=== PATIENT | female | born 1960 | race Caucasian/White ===

== ENCOUNTER 2022-11-28 14:33 | Outpatient (CLI) | payer MEDICARE, SELFPAY ==
--- NOTE | ~2022-11-28 | CT_ITS ---
CT Scan of the Chest without Contrast: Clinical Indication: Lung cancer screening, personal history of nicotine dependence Technique: Contiguous sections were acquired throughout the chest without intravenous contrast. Dose reduction technique was used on this scan by utilizing automated exposure control and iterative recon struction technique. The dose-length product (DLP) was 451.59 mGy-cm. Findings: There is no evidence of any significant mediastinal, hilar or axillary lymphadenopathy. There are ath erosclerotic calcifications of the aorta. There is no evidence of pleural or pericardial effusion. No pulmonary nodule identified. Possible minimal areas of ground glass opacity in the upper lobes. Images through the upper abdomen reveal no abnormalities. Impression: Lung RADS 1: Negative. 12 month follow-up screening CT advised. Possible minimal areas of groundglass opacity in the upper lobes. Correlate for mild bronchitis. Reviewed, dictated and finalized at [facility]. Impression: Lung RADS 1: Negative. 12 month follow-up screening CT advised. Possible minimal areas of groundglass opacity in the upper lobes. Correlate for mild bronchitis.
== END 2022-11-28 14:34 | disposition home or self-care (01) ==
PROVIDERS: PCP Internal Medicine Infectious Disease; Visit Provider Nurse Practitioner Family
DX: Z12.2 Encounter for screening for malignant neoplasm of respiratory organs (principal); F17.210 Nicotine dependence, cigarettes, uncomplicated
CPT/HCPCS: 71271

== ENCOUNTER 2022-11-28 14:55 | Outpatient (CLI) | payer MEDICARE, SELFPAY ==
--- NOTE | ~2022-11-28 | MM_ITS ---
EXAMINATION: MM screening hellen BI w christine HISTORY: Screening mammogram TECHNIQUE: Craniocaudal and mediolateral oblique 3-D tomosynthesis images were obtained and synthetic 2-D images were generated. CAD analysis was submitted and interpreted. COMPARISON: No prior mammogram is available for comparison at this institution. BREAST PARENCHYMAL COMPOSITION: The breasts are almost entirely fatty. FINDINGS: There is no evidence of suspicious mass, calcification, or architectural distortion to sugg est malignancy in either breast. IMPRESSION: 1. No mammographic evidence of malignancy. 2. Recommend routine screening mammography in one year. BI-RADS Category 1: Negative Reviewed, dictated and finalized at location [facility].
== END 2022-11-28 14:56 | disposition home or self-care (01) ==
PROVIDERS: PCP Internal Medicine Infectious Disease; Visit Provider Nurse Practitioner Women's Health
DX: Z12.31 Encounter for screening mammogram for malignant neoplasm of breast (principal)
CPT/HCPCS: 77063; 77067

== ENCOUNTER 2023-06-25 10:47 | Outpatient (RCR) | payer MEDICARE, SELFPAY ==
--- NOTE | 2023-06-25 11:50 | OPREHPOC ---
Outpatient Therapy Plan of Care This is a Multidisciplinary Plan of Care that may contain components documented by all disciplines (PT, OT, and ST.) PT Problem 1 PT Problem #1 Knowledge Deficit PT Goal 1 Goal patient to demonstrate independence with HEP Target Visit 4 PT Problem 2 PT Problem #2 Pain PT Goal 1 Goal Patient to report highest pain at 4/10 to return to ADLs at PLOF Target Visit 8 PT Problem 3 PT Problem #3 Impaired Strength PT Goal 1 Goal Patient to demonstrate 4+/5 strength of B LE to return to ambulate for grocery shopping without limitation Target Visit 8 PT Problem 4 PT Problem #4 Impaired Functional Mobil PT Goal 1 Goal 1. Patient to improve Back Index by 20% 2. Patient to report ability to grocery shop with no increase in back pain 3. Patient to return to house hold tasks at PLOF Target Visit 8
--- NOTE | 2023-06-25 11:50 | PTOPEVAL1 ---
Assessment and note entered by Gypsy Anne DPT Evaluation Information Assessment Status Evaluation Diagnosis low back pain, B LE pain Onset 04/20/23 Subjective Information Patient reports she underwent lumbar fusion on 04/20. She reports she is still having lower back and B LE pain but pain is improved. She reports she had her wound open and had to use a wound vac for a few weeks. She reports this is her second lumbar fusion. She reports no restrictions. She would like to attended PT for 1 week to learn HEP for strengthening. Patient reports difficulty with prolonged ambulation, standing for prolonged periods, and completing house hold tasks. She reports she returns to [place] at the end of June. Reported Pain Level Pain Score 3: Self Report Assessment PT Clinical Summary Ms. Lee is a 63 year old female who presents to PT with low back and LE pain. She demonstrates decreased B LE strength, decreased endurance and increased back pain limiting her ability to grocery shop, stand for house hold tasks and ambulate prolonged periods of time. She would benefit from skilled PT to address impairments and return to PLOF. Plan of Care Interventions Gait Training,Hot Pack/Cold Pack,Manual Therapy, Neuro Re-education,Paraffin Bath,Therapeutic Activities,Therapeutic Exercise PT Services Indicated Yes Treatment Frequency and 2x weekly for 10 visits Duration These treatments will address the objective and functional deficits as defined above. The patient will be advanced safely and appropriately in order for the patient to progress towards his/her prior level of function. Additional exercises will be introduced and as well as a comprehensive home exercise program upon discharge, if needed, ?to ensure carryover of functional gains achieved in the clinic. This treatment plan has been reviewed and agreement upon by the patient.
--- NOTE | 2023-06-27 07:09 | PCPTNOTE ---
Patient cancelled her session this morning. Patient notes independence with HEP. Holding on PT at this time.
== END 2023-09-23 23:59 | disposition home or self-care (01) ==
LOC: CHSPT 10:47
DX: Z47.89 Encounter for other orthopedic aftercare (principal); Z98.1 Arthrodesis status
CPT/HCPCS: 97110; 97161

== ENCOUNTER 2024-01-19 16:12 | Emergency (ER) | payer MEDICARE, SELFPAY ==
--- NOTE | ~2024-01-19 | XR_ITS ---
XR chest 2V DATE: 01/19/2024 16:56 INDICATION: Cough, shortness of breath TECHNIQUE: AP and lateral views COMPARISON: 11/28/2022 CT lung screening FINDINGS: Status post anterior and posterior cervical spine surgical fusion. Heart size is within normal range. No hilar or mediastinal enlargement. No pulmonary infiltrate or consolidation, pleural effusion or pulmonary vascular congestion or pneumo thorax is detected. IMPRESSION: No active cardiopulmonary disease Reviewed, dictated and finalized at location A.
[2024-01-19 16:15] VITALS: BP 127/69; PULSE 83; RESP 18; TEMP 37; O2SAT 94
--- NOTE | 2024-01-19 16:22 | ECG_ITS ---
Test Date: 2024-01-19 16:30:43 Measurements Intervals [place] Rate: 81 P: 65 KS: 155 QRS: 70 QRSD: 98 T: 67 QT: 361 QTc: 420 Interpretive Statements SINUS RHYTHM BASELINE ARTIFACT- I, II, III, AVR, AVL, AVF, V1-V2 NORMAL ECG No previous ECG available for comparison Electronically Signed On 01-19-2024 17:12:02 CDT by Francisco Javier Peralta D.O.
--- NOTE | 2024-01-19 16:37 | ED.SOB ---
HPI - SOB/Dyspnea General Chief Complaint: Shortness of Breath/Dyspnea Stated Complaint: SOB, cough Time Seen by Provider: 01/19/24 16:37 History of Present Illness HPI Narrative: 63-year-old female with history of type 2 diabetes, hypertension, hypothyroidism, COPD presents to the emergency department via EMS from home for shortness of breath. Patient reports a productive cough and shortness of breath for 2 weeks. She saw her marine pipefitter helper, FERNANDO Ramirez, and was started on doxycycline and prednisone For a COPD exacerbation a few days ago. States she felt some what improved, however symptoms have worsened again. patient states she smokes half pack to 1 pack per day for approximately 45 years. She has been using her nebulizers and albuterol inhaler as directed without improvement. States today while she was making soup for dinner she began to feel short of breath and lightheaded. She sat down and took her pulse ox which was 83%. She contacted EMS and was transported to the ED. She reports a productive cough with increased sputum production. Denies chest pain or fever, lower extremity edema, hemoptysis or history of VTE. She normally does not wear oxygen during the day but does wear 1 L at night with her BPAP. Related Data Home Medications Medication Instructions Recorded Confirmed atorvastatin 40 mg tablet 40 mg PO QHS 06/27/22 09/25/23 bupropion HCl 150 mg 24 hr tablet, 150 mg PO QAM 06/27/22 09/25/23 extended release desvenlafaxine succinate 100 mg 100 mg PO DAILY 06/27/22 09/25/23 tablet,extended release 24 hr (Pristiq) ergocalciferol (vitamin D2) 1,250 1,250 mcg PO WEEKLY 06/27/22 09/25/23 mcg (50,000 unit) capsule famciclovir 250 mg tablet 250 mg PO Q12H 06/27/22 09/25/23 gabapentin 300 mg capsule 300 mg PO BID 06/27/22 09/25/23 hydrocodone 5 mg-acetaminophen 325 1 tablet PO Q8H PRN 06/27/22 09/25/23 mg tablet levothyroxine 137 mcg capsule 137 mcg PO DAILY 06/27/22 09/25/23 nortriptyline 10 mg capsule 10 mg PO QHS 06/27/22 09/25/23 pregabalin 100 mg capsule 100 mg PO DAILY 11/15/22 09/25/23 liothyronine 5 mcg tablet 10 mcg PO BID 09/25/23 09/25/23 lorazepam 0.5 mg tablet 0.5 mg PO DAILY PRN 09/25/23 09/25/23 losartan 25 mg tablet 25 mg PO DAILY 09/25/23 09/25/23 metformin 500 mg tablet 500 mg PO BID 09/25/23 09/25/23 propranolol 20 mg tablet 20 mg PO BID 09/25/23 09/25/23 quetiapine 100 mg tablet 200 mg PO QHS 09/25/23 09/25/23 Allergies Allergy/AdvReac Type Severity Reaction Status Date / Time lithium AdvReac Severe shakes Uncoded 01/19/24 16:24 Review of Systems Review of Systems: All systems reviewed & are unremarkable except as noted in HPI and below PMFSH Past Medical History Medical History Anxiety Psychiatrist - Dr Zachary Hurley delivery delivered 1985 Chronic back pain and cervical stenosis. Sees pain management - Dr Barker Hypertension Hypothyroidism Network Developer - Dr Randolph Type 2 diabetes mellitus Surgical History Surgical History H/O: hysterectomy History of appendectomy 1985 History of cholecystectomy 1985 History of fusion of cervical spine 2010 Status post anal fissurectomy 1996 Social History Social History Smoking packs per day: 1 Smoking cigarettes per day: 20.0 Smoking status: Current every day smoker Alcohol intake: never Exam Narrative: GENERAL: Well-appearing, well-nourished, and in no acute distress. HEAD: Normocephalic, atraumatic. EYES: PERRLA and EOMI. ENT: Nares clear, no rhinorrhea or epistaxis. Mucous membranes moist. NECK: Supple. CHEST: no respiratory distress. Patient speaking in full sentences satting 94% on room air. Lung sounds significant for rhonchi and wheezing throughout all lung escalera. HEART: Regular rate and rhythm. No murmur heard. Normal peripheral pulses. ABDOMEN: Soft, nontender, nondistended, normal active bowel sounds. EXTREMITIES: Normal range of motion. No edema. Negative Homans bilaterally SKIN: Warm, dry, no rash. NEURO: No focal deficits. Alert and oriented x3 Course Vital Signs Vital signs: Vital Signs Temperature 98.6 F 01/19/24 16:15 Pulse Rate 83 01/19/24 16:15 Respiratory Rate 18 01/19/24 16:15 Blood Pressure 127/69 01/19/24 16:15 Pulse Oximetry 94 01/19/24 16:15 Oxygen Delivery Room Air 01/19/24 16:15 Temperature 98.6 F 01/19/24 16:15 Pulse Rate 81 01/19/24 18:00 Respiratory Rate 20 01/19/24 18:00 Blood Pressure 127/69 01/19/24 16:15 Pulse Oximetry 94 01/19/24 16:15 Oxygen Delivery Room Air 01/19/24 16:15 MDM - SOB/Dyspnea MDM Narrative Medical decision making narrative: 63-year-old female with history of COPD , WILFRED, hypothyroidism, hypertension, type 2 diabetes presents to the emergency department for shortness of breath and productive cough for 2 weeks, despite taking prednisone and doxycycline. Patient states she noted she was hypoxic 83% on room air therefore contacted EMS was transported to the ED. upon my evaluation, the patient is satting 94% on room air and speaking in full sentences. She is in no respiratory distress. Lung sounds significant for rhonchi and wheezing throughout all lung escalera. Her vitals are otherwise normal and she is afebrile. EKG shows sinus rhythm with a rate of 81, normal DC interval, normal QRS duration, normal QTC, no ischemic changes. Troponin is undetectable. D-dimer within normal limits, wells score is low risk. CBC shows leukocytosis of 16.8. This may be secondary to infection versus steroid use. Chemistries are remarkable for mild hyperkalemia 5.2, creatinine of 1.3 BUN of 27. There are no prior labs for comparison. BNP within normal limits. COVID, flu RSV are negative. Chest x-ray shows no acute cardiopulmonary disease. ABG shows pH is 7.344, pCO2 42.5, PO2 117.1 and bicarb of 22.6. Workup discussed with the patient. Presentation is most consistent with COPD exacerbation. She was given an hour long DuoNeb with improvement. Solu-Medrol held given current use of steroids (on prednisone taper, currently taking 40mg qd). She is requesting to be discharged home. Will discontinue doxycycline and trial Augmentin for COPD exacerbation. Advised her to Continue prednisone and to use her DuoNebs and inhaler as scheduled and follow-up closely with her marine pipefitter helper and PCP. Strict ED return precautions discussed. She is agreeable to plan verbalized understanding. Discharged in stable condition. Lab Data 01/19/24 17:36 01/19/24 17:36 Labs: Lab Results 01/19/24 01/19/24 01/19/24 Range/Units 17:35 17:35 17:35 WBC (4.5-10.0) K/mm3 RBC (4.2-5.4) M/mm3 Hgb (12.0-15.0) g/dL Hct (37.0-47.0) % MCV (80-100) fl MCH (26-34) pg MCHC (32-36) g/dl RDW (11.5-14.5) % Plt Count (150-375) k/mm3 MPV (7.4-10.4) fl Immature Gran % (Auto) (0-0.5) % Neut % (Auto) (45.5-73.1) % Lymph % (Auto) (18.3-44.2) % [place] % (Auto) (2.6-8.5) % Eos % (Auto) (0-4.4) % Baso % (Auto) (0.2-1.2) % Lymph # (Auto) (0.9-3.2) K/mm3 [place] # (Auto) (0.1-0.6) K/mm3 Eos # (Auto) (0-0.3) K/mm3 Baso # (Auto) (0.0-0.1) K/mm3 Abs Immat Gran (auto) (0.00-0.031) K/mm3 Absolute Neuts (auto) (1.3-6.7) K/mm3 Absolute Nucleated RBC (0.0-0.012) K/mm3 Nucleated RBC % (0.0-0.2) % PT (11.1-14.7) Seconds INR APTT (22.3-36.8) Seconds D-Dimer (<0.48) ug/mL Sodium Potassium Chloride Carbon Dioxide Anion Gap BUN Creatinine Estim Creat Clear Calc Estimated GFR Glucose Calcium Magnesium (1.6-2.3) mg/dL Total Bilirubin AST ALT Alkaline Phosphatase Troponin I (0.000-0.034) ng/mL NT-Pro-B Natriuret Pep (19.9-100) pg/mL Total Protein Albumin Influenza A (RT-PCR) Pending Negative Influenza B (RT-PCR) Pending Negative RSV (RT-PCR) Pending SARS-CoV-2 RNA (RT-PCR) Pending 01/19/24 01/19/24 01/19/24 Range/Units 17:35 17:36 17:36 WBC 16.8 H (4.5-10.0) K/mm3 RBC 4.64 (4.2-5.4) M/mm3 Hgb 14.0 (12.0-15.0) g/dL Hct 42.4 (37.0-47.0) % MCV 91.4 (80-100) fl MCH 30.2 (26-34) pg MCHC 33.0 (32-36) g/dl RDW 14.5 (11.5-14.5) % Plt Count 375 (150-375) k/mm3 MPV 10.4 (7.4-10.4) fl Immature Gran % (Auto) 0.5 (0-0.5) % Neut % (Auto) 90.3 H (45.5-73.1) % Lymph % (Auto) 7.7 L (18.3-44.2) % [place] % (Auto) 1.2 L (2.6-8.5) % Eos % (Auto) 0.1 (0-4.4) % Baso % (Auto) 0.2 (0.2-1.2) % Lymph # (Auto) 1.29 (0.9-3.2) K/mm3 [place] # (Auto) 0.2 (0.1-0.6) K/mm3 Eos # (Auto) 0.0 (0-0.3) K/mm3 Baso # (Auto) 0.0 (0.0-0.1) K/mm3 Abs Immat Gran (auto) 0.08 H (0.00-0.031) K/mm3 Absolute Neuts (auto) 15.1 H (1.3-6.7) K/mm3 Absolute Nucleated RBC 0.000 (0.0-0.012) K/mm3 Nucleated RBC % 0.0 (0.0-0.2) % PT 13.8 (11.1-14.7) Seconds INR 1.0 APTT 27.3 (22.3-36.8) Seconds D-Dimer 0.42 (<0.48) ug/mL Sodium Cancelled 132 L Potassium Cancelled Chloride Carbon Dioxide Anion Gap BUN Creatinine Estim Creat Clear Calc Estimated GFR Glucose Calcium Magnesium (1.6-2.3) mg/dL Total Bilirubin AST ALT Alkaline Phosphatase Troponin I (0.000-0.034) ng/mL NT-Pro-B Natriuret Pep (19.9-100) pg/mL Total Protein Albumin Influenza A (RT-PCR) Influenza B (RT-PCR) RSV (RT-PCR) SARS-CoV-2 RNA (RT-PCR) Negative 01/19/24 01/19/24 01/19/24 Range/Units 17:36 17:36 17:36 WBC (4.5-10.0) K/mm3 RBC (4.2-5.4) M/mm3 Hgb (12.0-15.0) g/dL Hct (37.0-47.0) % MCV (80-100) fl MCH (26-34) pg MCHC (32-36) g/dl RDW (11.5-14.5) % Plt Count (150-375) k/mm3 MPV (7.4-10.4) fl Immature Gran % (Auto) (0-0.5) % Neut % (Auto) (45.5-73.1) % Lymph % (Auto) (18.3-44.2) % [place] % (Auto) (2.6-8.5) % Eos % (Auto) (0-4.4) % Baso % (Auto) (0.2-1.2) % Lymph # (Auto) (0.9-3.2) K/mm3 [place] # (Auto) (0.1-0.6) K/mm3 Eos # (Auto) (0-0.3) K/mm3 Baso # (Auto) (0.0-0.1) K/mm3 Abs Immat Gran (auto) (0.00-0.031) K/mm3 Absolute Neuts (auto) (1.3-6.7) K/mm3 Absolute Nucleated RBC (0.0-0.012) K/mm3 Nucleated RBC % (0.0-0.2) % PT (11.1-14.7) Seconds INR APTT (22.3-36.8) Seconds D-Dimer (<0.48) ug/mL Sodium Potassium 5.2 H Chloride Cancelled 96 L Carbon Dioxide Cancelled 24 Anion Gap Cancelled BUN Creatinine Estim Creat Clear Calc Estimated GFR Glucose Calcium Magnesium (1.6-2.3) mg/dL Total Bilirubin AST ALT Alkaline Phosphatase Troponin I (0.000-0.034) ng/mL NT-Pro-B Natriuret Pep (19.9-100) pg/mL Total Protein Albumin Influenza A (RT-PCR) Influenza B (RT-PCR) RSV (RT-PCR) SARS-CoV-2 RNA (RT-PCR) 01/19/24 01/19/24 01/19/24 Range/Units 17:36 17:36 17:36 WBC (4.5-10.0) K/mm3 RBC (4.2-5.4) M/mm3 Hgb (12.0-15.0) g/dL Hct (37.0-47.0) % MCV (80-100) fl MCH (26-34) pg MCHC (32-36) g/dl RDW (11.5-14.5) % Plt Count (150-375) k/mm3 MPV (7.4-10.4) fl Immature Gran % (Auto) (0-0.5) % Neut % (Auto) (45.5-73.1) % Lymph % (Auto) (18.3-44.2) % [place] % (Auto) (2.6-8.5) % Eos % (Auto) (0-4.4) % Baso % (Auto) (0.2-1.2) % Lymph # (Auto) (0.9-3.2) K/mm3 [place] # (Auto) (0.1-0.6) K/mm3 Eos # (Auto) (0-0.3) K/mm3 Baso # (Auto) (0.0-0.1) K/mm3 Abs Immat Gran (auto) (0.00-0.031) K/mm3 Absolute Neuts (auto) (1.3-6.7) K/mm3 Absolute Nucleated RBC (0.0-0.012) K/mm3 Nucleated RBC % (0.0-0.2) % PT (11.1-14.7) Seconds INR APTT (22.3-36.8) Seconds D-Dimer (<0.48) ug/mL Sodium Potassium Chloride Carbon Dioxide Anion Gap 12 BUN Cancelled 27 H Creatinine Cancelled 1.30 H Estim Creat Clear Calc Cancelled Estimated GFR Glucose Calcium Magnesium (1.6-2.3) mg/dL Total Bilirubin AST ALT Alkaline Phosphatase Troponin I (0.000-0.034) ng/mL NT-Pro-B Natriuret Pep (19.9-100) pg/mL Total Protein Albumin Influenza A (RT-PCR) Influenza B (RT-PCR) RSV (RT-PCR) SARS-CoV-2 RNA (RT-PCR) 01/19/24 01/19/24 01/19/24 Range/Units 17:36 17:36 17:36 WBC (4.5-10.0) K/mm3 RBC (4.2-5.4) M/mm3 Hgb (12.0-15.0) g/dL Hct (37.0-47.0) % MCV (80-100) fl MCH (26-34) pg MCHC (32-36) g/dl RDW (11.5-14.5) % Plt Count (150-375) k/mm3 MPV (7.4-10.4) fl Immature Gran % (Auto) (0-0.5) % Neut % (Auto) (45.5-73.1) % Lymph % (Auto) (18.3-44.2) % [place] % (Auto) (2.6-8.5) % Eos % (Auto) (0-4.4) % Baso % (Auto) (0.2-1.2) % Lymph # (Auto) (0.9-3.2) K/mm3 [place] # (Auto) (0.1-0.6) K/mm3 Eos # (Auto) (0-0.3) K/mm3 Baso # (Auto) (0.0-0.1) K/mm3 Abs Immat Gran (auto) (0.00-0.031) K/mm3 Absolute Neuts (auto) (1.3-6.7) K/mm3 Absolute Nucleated RBC (0.0-0.012) K/mm3 Nucleated RBC % (0.0-0.2) % PT (11.1-14.7) Seconds INR APTT (22.3-36.8) Seconds D-Dimer (<0.48) ug/mL Sodium Potassium Chloride Carbon Dioxide Anion Gap BUN Creatinine Estim Creat Clear Calc 59 Estimated GFR Cancelled 41 L Glucose Cancelled 155 H Calcium Cancelled Magnesium (1.6-2.3) mg/dL Total Bilirubin AST ALT Alkaline Phosphatase Troponin I (0.000-0.034) ng/mL NT-Pro-B Natriuret Pep (19.9-100) pg/mL Total Protein Albumin Influenza A (RT-PCR) Influenza B (RT-PCR) RSV (RT-PCR) SARS-CoV-2 RNA (RT-PCR) 01/19/24 01/19/24 01/19/24 Range/Units 17:36 17:36 17:36 WBC (4.5-10.0) K/mm3 RBC (4.2-5.4) M/mm3 Hgb (12.0-15.0) g/dL Hct (37.0-47.0) % MCV (80-100) fl MCH (26-34) pg MCHC (32-36) g/dl RDW (11.5-14.5) % Plt Count (150-375) k/mm3 MPV (7.4-10.4) fl Immature Gran % (Auto) (0-0.5) % Neut % (Auto) (45.5-73.1) % Lymph % (Auto) (18.3-44.2) % [place] % (Auto) (2.6-8.5) % Eos % (Auto) (0-4.4) % Baso % (Auto) (0.2-1.2) % Lymph # (Auto) (0.9-3.2) K/mm3 [place] # (Auto) (0.1-0.6) K/mm3 Eos # (Auto) (0-0.3) K/mm3 Baso # (Auto) (0.0-0.1) K/mm3 Abs Immat Gran (auto) (0.00-0.031) K/mm3 Absolute Neuts (auto) (1.3-6.7) K/mm3 Absolute Nucleated RBC (0.0-0.012) K/mm3 Nucleated RBC % (0.0-0.2) % PT (11.1-14.7) Seconds INR APTT (22.3-36.8) Seconds D-Dimer (<0.48) ug/mL Sodium Potassium Chloride Carbon Dioxide Anion Gap BUN Creatinine Estim Creat Clear Calc Estimated GFR Glucose Calcium 9.0 Magnesium 2.0 (1.6-2.3) mg/dL Total Bilirubin Cancelled 0.5 AST Cancelled 45 H ALT Cancelled Alkaline Phosphatase Troponin I (0.000-0.034) ng/mL NT-Pro-B Natriuret Pep (19.9-100) pg/mL Total Protein Albumin Influenza A (RT-PCR) Influenza B (RT-PCR) RSV (RT-PCR) SARS-CoV-2 RNA (RT-PCR) 01/19/24 01/19/24 01/19/24 Range/Units 17:36 17:36 17:36 WBC (4.5-10.0) K/mm3 RBC (4.2-5.4) M/mm3 Hgb (12.0-15.0) g/dL Hct (37.0-47.0) % MCV (80-100) fl MCH (26-34) pg MCHC (32-36) g/dl RDW (11.5-14.5) % Plt Count (150-375) k/mm3 MPV (7.4-10.4) fl Immature Gran % (Auto) (0-0.5) % Neut % (Auto) (45.5-73.1) % Lymph % (Auto) (18.3-44.2) % [place] % (Auto) (2.6-8.5) % Eos % (Auto) (0-4.4) % Baso % (Auto) (0.2-1.2) % Lymph # (Auto) (0.9-3.2) K/mm3 [place] # (Auto) (0.1-0.6) K/mm3 Eos # (Auto) (0-0.3) K/mm3 Baso # (Auto) (0.0-0.1) K/mm3 Abs Immat Gran (auto) (0.00-0.031) K/mm3 Absolute Neuts (auto) (1.3-6.7) K/mm3 Absolute Nucleated RBC (0.0-0.012) K/mm3 Nucleated RBC % (0.0-0.2) % PT (11.1-14.7) Seconds INR APTT (22.3-36.8) Seconds D-Dimer (<0.48) ug/mL Sodium Potassium Chloride Carbon Dioxide Anion Gap BUN Creatinine Estim Creat Clear Calc Estimated GFR Glucose Calcium Magnesium (1.6-2.3) mg/dL Total Bilirubin AST ALT 65 H Alkaline Phosphatase Cancelled 104 Troponin I < 0.012 (0.000-0.034) ng/mL NT-Pro-B Natriuret Pep 41 (19.9-100) pg/mL Total Protein Cancelled 8.0 Albumin Cancelled Influenza A (RT-PCR) Influenza B (RT-PCR) RSV (RT-PCR) SARS-CoV-2 RNA (RT-PCR) 01/19/24 Range/Units 17:36 WBC (4.5-10.0) K/mm3 RBC (4.2-5.4) M/mm3 Hgb (12.0-15.0) g/dL Hct (37.0-47.0) % MCV (80-100) fl MCH (26-34) pg MCHC (32-36) g/dl RDW (11.5-14.5) % Plt Count (150-375) k/mm3 MPV (7.4-10.4) fl Immature Gran % (Auto) (0-0.5) % Neut % (Auto) (45.5-73.1) % Lymph % (Auto) (18.3-44.2) % [place] % (Auto) (2.6-8.5) % Eos % (Auto) (0-4.4) % Baso % (Auto) (0.2-1.2) % Lymph # (Auto) (0.9-3.2) K/mm3 [place] # (Auto) (0.1-0.6) K/mm3 Eos # (Auto) (0-0.3) K/mm3 Baso # (Auto) (0.0-0.1) K/mm3 Abs Immat Gran (auto) (0.00-0.031) K/mm3 Absolute Neuts (auto) (1.3-6.7) K/mm3 Absolute Nucleated RBC (0.0-0.012) K/mm3 Nucleated RBC % (0.0-0.2) % PT (11.1-14.7) Seconds INR APTT (22.3-36.8) Seconds D-Dimer (<0.48) ug/mL Sodium Potassium Chloride Carbon Dioxide Anion Gap BUN Creatinine Estim Creat Clear Calc Estimated GFR Glucose Calcium Magnesium (1.6-2.3) mg/dL Total Bilirubin AST ALT Alkaline Phosphatase Troponin I (0.000-0.034) ng/mL NT-Pro-B Natriuret Pep (19.9-100) pg/mL Total Protein Albumin 4.6 Influenza A (RT-PCR) Influenza B (RT-PCR) RSV (RT-PCR) SARS-CoV-2 RNA (RT-PCR) ABG Data ABG results: 01/19/24 17:06 Puncture Site Right brachial ABG pH 7.344 L ABG pCO2 42.5 ABG pO2 117.1 H ABG PO2/FiO2 Ratio 2.25 ABG HCO3 22.6 ABG O2 Saturation 98.1 ABG O2 Content 20.0 ABG Base Excess -3.0 A-a Gradient 206.1 Oxyhemoglobin 94.3 Total Hemoglobin 15.0 O2 Delivery Device Other device O2 Liters/Min 8.0 FiO2 52 Discharge Plan Discharge Clinical Impression: Asthma exacerbation in COPD, Creatinine elevation Patient Disposition: Home, Self-Care Condition: Stable Instructions: Antibiotic Form, COPD (Chronic Obstructive Pulmonary Disease) (DC) Additional Instructions: Your evaluated in the emergency department for shortness of breath. Your workup is consistent with a COPD exacerbation. Your given an hour long DuoNeb with improvement in her lung sounds and breathing. Please stop taking the doxycycline and start taking the Augmentin I prescribed. Continue using the DuoNebs and albuterol inhaler as directed. Continue the prednisone as directed. On your lab work your found have a mildly elevated potassium of 5.2 and a mildly elevated creatinine of 1.3. Please get your lab work redrawn Sunday by her primary care provider. Return to the emergency department if you develop chest pain, shortness of breath, fever or other concerning symptoms. Please follow-up closely with your marine pipefitter helper. Prescriptions: New amoxicillin-pot clavulanate 875-125 mg tablet 1 tablet PO Q12H Qty: 14 0RF No Action levothyroxine 137 mcg capsule 137 mcg PO DAILY bupropion HCl 150 mg tablet extended release 24 hr 150 mg PO QAM desvenlafaxine succinate [Pristiq] 100 mg tablet extended release 24 hr 100 mg PO DAILY famciclovir 250 mg tablet 250 mg PO Q12H gabapentin 300 mg capsule 300 mg PO BID atorvastatin 40 mg tablet 40 mg PO QHS nortriptyline 10 mg capsule 10 mg PO QHS ergocalciferol (vitamin D2) 1,250 mcg (50,000 unit) capsule 1,250 mcg PO WEEKLY hydrocodone-acetaminophen 5-325 mg tablet 1 tablet PO Q8H PRN albuterol sulfate 90 mcg/actuation HFA aerosol inhaler 1 - 2 puff inhalation Q4-6H PRN (Reason: shortness of breath or wheezing) Qty: 8.5 2RF pregabalin 100 mg capsule 100 mg PO DAILY liothyronine 5 mcg tablet 10 mcg PO BID losartan 25 mg tablet 25 mg PO DAILY metformin 500 mg tablet 500 mg PO BID propranolol 20 mg tablet 20 mg PO BID quetiapine 100 mg tablet 200 mg PO QHS lorazepam 0.5 mg tablet 0.5 mg PO DAILY PRN budesonide-formoterol 160-4.5 mcg/actuation HFA aerosol inhaler 2 puff inhalation Q12H Qty: 10.2 5RF Hold Instructions: Hold while using Breztri Rx Instructions: Rinse mouth and spit after each use Breztri Aerosphere 160-9-4.8 mcg/actuation HFA aerosol inhaler 2 inh inhalation BID Qty: 32.1 3RF Rx Instructions: Rinse mouth and spit after each use. albuterol sulfate 2.5 mg /3 mL (0.083 %) solution for nebulization 2.5 mg inhalation Q4-6H PRN (Reason: shortness of breath or wheezing) Qty: 180 3RF prednisone 10 mg tablet See Rx Instructions PO DAILY Qty: 34 0RF Rx Instructions: 4 tabs daily x 4 days; then 3 tabs daily x 3 days, then 2 tabs daily x 3 days, then 1 tab daily x 3 days. doxycycline hyclate 100 mg tablet 100 mg PO BID 7 Days Qty: 14 0RF Follow-up/Referrals: Jim,Naveed Amin MD [Primary Care Provider] -
[2024-01-19 16:58] VITALS: PULSE 78; RESP 20
[2024-01-19] MEDS: IPRATROPIUM 0.5 MG/ALBUTEROL SULFATE 2.5 MG AMPUL.NEB 3 ML INHALATION ×3 (16:58)
[2024-01-19 17:09] LABS: Alveolar/Arterial O2 Gradient 206.1 mmHg; Fractional Inspired Oxygen 52 %; HCO3 ABG 22.6 mEq/l (22.0-26.0); Oxygen Saturation ABG 98.1 % (95.0-100.0); Oxyhemoglobin 94.3 % THb (90.0-100.0); PCO2 ABG 42.5 mmHg (35.0-45.0); PO2 ABG 117.1 mmHg (80.0-100.0); PO2 FiO2 Ratio Arterial Blood 2.25 %; pH ABG 7.344 (7.350-7.450)
[2024-01-19 17:10] LABS: Device OTHER DEVICE; Site Drawn RIGHT BRACHIAL
[2024-01-19] MEDS: KETOROLAC 15 MG/ML VIAL (*BKC) IV PUSH (17:24)
[2024-01-19 17:45] LABS: Basophils Percent Auto 0.2 % (0.2-1.2); Eosinophils Percent Auto 0.1 % (0-4.4); Hematocrit 42.4 % (37.0-47.0); Immature Granulocyte Absolute 0.08 K/mm3 (0.00-0.031); Immature Granulocyte Percent A 0.5 % (0-0.5); Lymphocytes Absolute Auto 1.29 K/mm3 (0.9-3.2); Lymphocytes Percent Auto 7.7 % (18.3-44.2); Mean Corpuscular Hemoglobin 30.2 pg (26-34); Mean Corpuscular Volume 91.4 fl (80-100); Mean Platelet Volume 10.4 fl (7.4-10.4); Monocytes Absolute Auto 0.2 K/mm3 (0.1-0.6); Monocytes Percent Auto 1.2 % (2.6-8.5); Neutrophils Absolute Auto 15.1 K/mm3 (1.3-6.7); Neutrophils Percent Auto 90.3 % (45.5-73.1); Platelet Count Result 375 k/mm3 (150-375); Red Blood Count 4.64 M/mm3 (4.2-5.4); Red Cell Distribution Width 14.5 % (11.5-14.5); White Blood Count 16.8 K/mm3 (4.5-10.0)
[2024-01-19 17:56] LABS: Alanine Aminotransferase 65 U/L (6-35); Albumin Level 4.6 g/dL (3.5-5.1); Alkaline Phosphatase 104 U/L (38-126); Anion Gap 12 mmol/L (4-12); Aspartate Amino Transferase 45 U/L (14-36); Bilirubin,Total 0.5 mg/dL (0.2-1.3); Blood Urea Nitrogen 27 mg/dL (7-17); Carbon Dioxide 24 mmol/L (22-30); Chloride 96 mmol/L (98-107); Estimated CRCL calculation 59 ml/min; Estimated Glomerular Filt Rate 41; Glucose 155 mg/dL (65-110); Potassium 5.2 mmol/L (3.4-5.0); Sodium 132 mmol/L (137-145)
[2024-01-19 17:57] LABS: Prothrombin Time 13.8 Seconds (11.1-14.7)
[2024-01-19 17:58] LABS: Partial Thromboplastin Time 27.3 Seconds (22.3-36.8)
[2024-01-19 18:00] VITALS: PULSE 81; RESP 20
[2024-01-19 18:01] LABS: D Dimer 0.42 ug/mL (<0.48)
[2024-01-19 18:10] LABS: NT Pro B Type Natriuretic Pept 41 pg/mL (19.9-100); Troponin I < 0.012 ng/mL (0.000-0.034)
[2024-01-19 18:22] LABS: Influenza A QL RT-PCR Negative (Negative); Influenza B QL RT-PCR Negative (Negative); SARS-CoV-2 RNA PCR Negative (Negative)
== END 2024-01-19 19:25 | disposition home or self-care (01) ==
PROVIDERS: Emergency Medicine; Emergency Provider Physician Assistant; PCP Internal Medicine Infectious Disease
DX: J45.901 Unspecified asthma with (acute) exacerbation (principal); R94.4 Abnormal results of kidney function studies; E11.9 Type 2 diabetes mellitus without complications; I10 Essential (primary) hypertension; E03.9 Hypothyroidism, unspecified; J44.9 Chronic obstructive pulmonary disease, unspecified; F17.210 Nicotine dependence, cigarettes, uncomplicated; Z20.822 Contact with and (suspected) exposure to COVID-19
CPT/HCPCS: 36415; 36600; 71046; 80053; 82805; 83735; 83880; 84484; 85018; 85025; 85380; 85610; 85730; 87636; 87637; 93005; 94640; 96374; 99284; J1885

== ENCOUNTER 2024-05-26 11:59 | Outpatient (RCR) | payer MEDICARE, SELFPAY ==
--- NOTE | 2024-05-26 12:53 | PTOPEVAL1 ---
Assessment and note entered by Chon Spencer Evaluation Information Assessment Status Evaluation ICD-10 Condition Codes (PT) Pain in Thoracic Spine M54.6 Onset 03/26/24 Subjective Information Pt. reports she underwent surgery at the thoracic spine in March. She reports she had 3 herniated disc and a benign mass removed. She reports she is still experiencing pain between her shoulder blades. She states that she cannot lay on her back. She reports that prior to surgery she was able to care for her home, but states that her has to do most work currently due to pain. She reports she ice's her surgical site to reduce pain. She reports that she OxyContin twice a weak and was taking it for back pain previous to surgery. She reports that she can stand for about 10 minute before having to sit. She reports she cannot walk through the grocery store due to back pain and has to use a scooter since surgery. she reports that her goal is to be able to walk longer and reduce her pain. Reported Pain Level Pain Score 5: Self Report Assessment PT Clinical Summary Pt. is a 64 year old female who enters the clinic with a diagnosis of back pain following surgery at the thoracic spine. She presents with pain, hypersensitivity around the incision, impaired postural awareness, core and u.e./l.e. weakness and functional decline. Continued skilled PT is indicated in order to improve these areas to allow the pt. to have improved comfort with IADL performance. Plan of Care Interventions Electrical Stimulation,Hot Pack/Cold Pack,Manual Therapy,Neuro Re-education,Therapeutic Activities, Therapeutic Exercise PT Services Indicated Yes Treatment Frequency and 2x/week x 10 visits Duration These treatments will address the objective and functional deficits as defined above. The patient will be advanced safely and appropriately in order for the patient to progress towards his/her prior level of function. Additional exercises will be introduced and as well as a comprehensive home exercise program upon discharge, if needed, ?to ensure carryover of functional gains achieved in the clinic. This treatment plan has been reviewed and agreement upon by the patient.
--- NOTE | 2024-06-12 10:35 | PCPTNOTE ---
Pt cancelled session. Pt reports her sister was killed in an automobile accident and she has to go to [place] for several weeks.
--- NOTE | 2024-06-24 11:03 | OPREHPOC ---
Outpatient Therapy Plan of Care This is a Multidisciplinary Plan of Care that may contain components documented by all disciplines (PT, OT, and ST.) PT Problem 1 PT Problem #1 Knowledge Deficit PT Goal 1 Goal / Goal Update Pt. will be independent with a HEP addressing posture and mobility. Target Visit 2 PT Problem 2 PT Problem #2 Pain PT Goal 1 Goal / Goal Update Pt. will report pain levels at 2/10 at worst at the area of the back with long periods of standing pt. will be able to lay on her back for duration of 3 hours for improved sleep habits. Target Visit 10 PT Problem 3 PT Problem #3 Impaired Functional Mobility PT Goal 1 Goal / Goal Update Pt. will be able to safely lift 10-15# object from floor to waist in repetition with proper mechanics Pt. will present with less than 50% limitation on the Oswestry indicating significant functional improvement. Target Visit 10
--- NOTE | 2024-06-24 11:03 | PTOPDC ---
Assessment and note entered by Chelsy Aburto, PT Evaluation Information Assessment Status Discharge - Pt Not Present ICD-10 Condition Codes (PT) Pain in Thoracic Spine M54.6 Onset 03/26/24 Subjective Information Pt had a in the family and has been out of town. She is not sure when she will return and requested to be discharged for now. Assessment PT Clinical Summary Patient was seen for 4 visits and then had a in the family that requires her to be out of town for an extended period. She requested to be discharged until she can make it back in. Plan of Care PT Services Indicated Yes
== END 2024-06-05 20:00 | disposition home or self-care (01) ==
LOC: CHSPT 11:59
DX: M96.1 Postlaminectomy syndrome, not elsewhere classified (principal)
CPT/HCPCS: 97014; 97110; 97140; 97150; 97161; G0283

== ENCOUNTER 2024-07-14 12:06 | Outpatient (CLI) | payer MEDICARE, SELFPAY ==
[2024-07-14 12:38] LABS: Bilirubin Urine 2+ (Negative); Blood Urine 3+ (Negative); Glucose Urine UA Negative (Negative); Ketones Urine Trace (Negative); Leukocyte Esterase Ur 2+ LEU/UL (Negative); Nitrate Urine Positive (Negative); Protein Urine 3+ (Negative); Specific Grav Ur 1.025 (1.010-1.020); pH Urine 6.5 (5.0-8.0)
[2024-07-14 12:46] LABS: Add Urine Microscopic? YES; Appearance Urine Cloudy (Clear); Bacteria Urine 1+ /hpf; Color Urine Dark Brown (Yellow); RBC Urine >75 /hpf (0-2); Squamous Epithelial Cell Urine Few /hpf (Few); WBC Urine >75 /hpf (0-3)
--- OUTSIDE RECORDS SUMMARY | 2024-07-14 13:57 | XMS_ITS | Clinical Summary ---
Author Organization [facility] Address [address] [place] [address] Phone Care Team Providers Care Glass Toughening Operator Name Role Phone Afshin Willis MD Unavailable [phone] Kenyatta Comer MD Primary Care Provider [phone] Sumanth Chan MD Unavailable Allergies Active Allergy Reactions Criticality Noted Date Comments [place] Other (see Comments) 01/31/2015 Other Itching 02/24/2015 Powdered gloves- red bumps Medications OXcarbazepine (TRILEPTAL) 600 MG Tablet Take 300 mg by mouth daily. Active tranylcypromine (PARNATE) 10 MG TabletIndication s:3 in th am, 3 at 3:00pm Take 3 tablets in the am and 3 at 3pm Indications: 3 in th am, 3 at 3:00pm Active estradiol (ESTRACE) 1 MG Tablet Take 1 mg by mouth every morning. Hazardous: Medication requires special safe handling and disposal. Active QUEtiapine (SEROquel) 100 MG Tablet Take 300 mg by mouth nightly. 2 TABS at HS Active diazepam (VALIUM) 5 MG Tablet Take 5 mg by mouth as needed. Reported on 08/23/2016 Active Cholecalciferol (HM VITAMIN D3) 4000 UNITS Capsule Take 1 Tab by mouth daily. 6 Active Multiple Vitamins-Mineral s (WOMENS MULTIVITAMIN PLUS) Tablet Take 1 Tab by mouth daily. 6 Active oxyCODONE-Acetam inophen (PERCOCET) 10-325 MG Tablet Take 1 Tab by mouth as needed. 6 Active Calcium Citrate-Vitamin D (CALCIUM + D PO) Take 1 Tab by mouth 2 times daily. 600/800 Active LORazepam (ATIVAN) 1 MG Tablet Take 1 Tablet by mouth as needed. 7 Active Melatonin 5 MG Capsule Take by mouth. Activ e tiZANidine (ZANAFLEX) 2 MG Tablet Take 1 Tab by mouth 3 times daily. 90 Tab 7 Active levothyroxine (SYNTHROID) 137 MCG Tablet Take 1 Tab by mouth daily. 90 Tab 7 Active Additional Information Patient not taking.Reported on 06/10/2024 liothyronine (CYTOMEL) 25 MCG Tablet TAKE 1/2 BY MOUTH EVERY DAY 45 Tab 7 Active Additional Information Patient not taking.Reported on 06/10/2024 propranolol (INDERAL) 80 MG Tablet Take 60 mg by mouth 2 times daily. 2 Active liothyronine (CYTOMEL) 5 MCG Tablet Take 5 mcg by mouth. 2 TABS AM, 2 TABS PM 1 Active levothyroxine (SYNTHROID) 137 MCG Tablet Take 137 mcg by mouth. 1 Active metFORMIN (GLUCOPHAGE) 500 MG Tablet Take 500 mg by mouth. 4 Active Desvenlafaxine ER 100 MG TABLET SR 24 HR Take 100 mg by mouth daily. 3 Active gabapentin (NEURONTIN) 300 MG Capsule Take 600 mg by mouth. 4 Active losartan (COZAAR) 50 MG Tablet Take 50 mg by mouth daily. 5 Active famciclovir (FAMVIR) 250 MG Tablet Take 250 mg by mouth 2 times daily. Active atorvastatin (LIPITOR) 40 MG Tablet Take 40 mg by mouth daily. 5 Active nortriptyline (PAMELOR) 10 MG Capsule Take 10 mg by mouth. 4 Active Budeson-Glycopyr rol-Formoterol (Breztri Aerosphere) 160-9-4.8 MCG/ACT Aerosol take by inhalation. Active albuterol (PROVENTIL, VENTOLIN) (2.5 MG/3ML) 0.083% Nebulizer Soln take 2.5 mg by inhalation. Active Brexpiprazole (Rexulti) 2 MG Tablet Take by mouth. Activ e Active Problems Problem Noted Date Diagnosed Date Major depressive disorder, r ecurrent episode, moderate with anxious distress 03/05/2017 Congenital hypothyroidism without goiter 017 Tobacco dependence 03/26/2015 Depression 03/02/2015 Obesity (BMI 30-39.9) 03/02/2015 Facet arthropathy, lumbosacral 02/24/2015 Lumbar foraminal stenosis 02/24/2015 Encounters Date Type Department Care Team Description 06/10/2024 2:15 PM CDT Office Visit [facility] - General Surgery - [place] [address] [phone] Sumanth Chan MD Skin tag (Primary Dx); Cellulitis and abscess of trunk Discharge Disposition: Discharged to home or Selfcare 06/10/2024 Travel from Last 3 Months Immunizations Immunization Administration Dates Next Due Influenza Vaccine, Quadrivalent, PF 01/11/2018 PNEUMONIA ADULT IM PPSV23 04/18/2013 Pneumococcal Vaccine Adult - 23 Valent 1 TDAP Vaccine 10/13/2013 Tetanus Toxoid, Unspecified Formulation 03/19/19 14 Family History Medical History Relation Name Comments No Known Problems Daughter Alzheimer's Disease Father Dementia Father Diabetes Father Breast Cancer Maternal Aunt Depression Maternal Aunt Breast Cancer Mother Cancer Mother Depression Mother Diabetes Mother High Cholesterol Mother Hypertension Mother Autoimmune Disease Sister Breast Cancer Sister Cancer Sister Relation Name Status Comments Daughter Alive Father Maternal Aunt Maternal Grandfather Maternal Grandmother Mother Paternal Grandfather Paternal Grandmother Sister Alive Social History Tobacco Use Types Packs/Day Years Used Date Smoking Tobacco: Every Day Cigarettes 0.8 49.3 Started: 1975 Smokeless Tobacco: Never Alcohol Use Standard Drinks/Week Comments Yes 0 (1 standard drink = 0.6 oz pur e alcohol) rare Sexually Active Control Partners Comments Yes Male Comments No Sex and Gender Information Value Date Recorded Sex Assigned at Not on file Legal Sex Female 10:22 PM CDT Gender Identity Not on file Sexual Orientation Not on file Last Filed Vital Signs Vital Sign Reading Time Taken Comments Blood Pressure 146/70 06/10/2024 2:06 PM CDT Pulse 85 06/10/2024 2:06 PM CDT Temperature 36.4 C (97.6 F) 06/10/2024 2:06 PM CDT Respiratory Rate 18 08/01/2021 11:27 AM CDT Oxygen Saturation 95% 06/10/2024 2:06 PM CDT Inhaled Oxygen Concentration - - Weight 125.2 kg (276 lb) 06/10/2024 2:06 PM CDT Height 175.3 cm (5' 9 ) 06/10/2024 2:06 PM CDT Body Mass Index 40.76 06/10/2024 2:06 PM CDT Plan of Treatment Health Maintenance Due Date Last Done Comments Hepatitis C Virus (HCV) Screening 1960 Colonoscopy 2005 Cologuard 2010 Respiratory Syncytial Virus (RSV) Immunization (Adult) (1 - Risk 60-74 years 1-dose series) 2020 Colorectal Cancer Screening 07/13/2021 Immunochemical Fecal Occult Blood 07/12/2022 07/12/2021 Mammogram 09/07/2022 09/07/2021, 05/, 05/26/2019, Additional history exists SARS-COV-2 Immunization ( season) 2023 12/27/2021, 06/06/2020, 05/14/2020 Lung Cancer Screening 03/31/2025 03/31/2024 , 06/23/2015, 06/24/2014, Additional history exists Td Immunization Every 10 Years (Adults With 1 Tdap) 05/17/2033 05/18/2023, 10/13/2013, 10/13/2013, Additional history exists Cervical Cancer Screening (CCS) Discontinued Pap Smear Discontinued 05/17/2014 Pneumococcal Immunization (50+ years) Completed 05/07/2022, 01/04/2021, 05/31/2014, Additional history exists Pneumococcal Immunization Combined Discontinued 05/07/2022, 01/04/2021, 05/31/2014, Additional history exists Zoster Immunization Completed 07/19/2022, Influenza Immunization Completed , 12/18/2023, 05/18/2023, Additional history exists HPV/Cotest Discontinued Hepatitis B Immunization Aged Out No longer eligible based on patient's age to complete this topic Meningococcal Immunization (ACWY) Aged Out No longer eligible based on patient's age to complete this topic Rotavirus Immunization Aged Out No lo nger eligible based on patient's age to complete this topic Procedures Procedure Name Priority Date/Time Associated Diagnosis Comments REMOVAL SKIN TAGS FIRST 15 Routine 06/10/2024 3:03 PM CDT Skin tag [facility] SCREENING BILATERAL DIGITAL W CAD W VERA Routine 04/15/2018 1:04 PM BOXING MACHINE OPERATOR Encounter for screening mammogram for malignant neoplasm of breast CT CHEST W CONTRAST STAT 06/23/2015 8 :04 PM CDT from Last 3 Months or Most Recently Relevant to Health Maintenance Results * REMOVAL SKIN TAGS FIRST 15 (06/10/2024 3:03 PM CDT) Narrative Sumanth Chan MD - 06/10/2024 3:03 PM CDT Sumanth Chan MD 06/10/2024 3:05 PM REMOVAL SKIN TAGS FIRST 15 Date/Time: 06/10/2024 3:03 PM Performed by: Sumanth Chan MD Authorized by: Sumanth Chan MD Body area: trunk Location details: chest Laceration length: 1 cm Foreign bodies: no foreign bodies Sedation: Patient sedated: no Comments: Patient presented with a skin tag of the left upper chest wall. The skin tag was very mobile. She desire no anesthesia. The area was prepped with alcohol and using a pickup to retract the skin tag, the skin tag was sharply and swiftly cut with a 15 blade. Minimal bleeding. Spot Band-Aid was put on. She tolerated procedure well. Sumanth Chan MD PROCEDURE/MINOR SURGICAL ORDERAB LES Final Result * [facility] SCREENING BILATERAL DIGITAL W CAD W VERA (04/15/2018 1:04 PM BOXING MACHINE OPERATOR) Anatomical Region Laterality Modality breast Bilateral Mammography 04/15/2018 6:06 AM BOXING MACHINE OPERATOR Narrative 05/08/2018 9:53 AM BOXING MACHINE OPERATOR - [facility] SCREENING BILATERAL DIGITAL W CAD W VERA BILATERAL DIGITAL SCREENING MAMMOGRAM 3D/2D WITH CAD WITH MEDIOLATERAL OBLIQUE CRANIOCAUDAL: 04/15/2018 The study was acquired using digital technology and interpreted from soft copy. Current study was also evaluated with ICAD version 7.2. CLINICAL: Routine screening. Patient has no complaints. No personal history of cancer. Mother with postmenopausal breast cancer. Sister with breast cancer. Maternal aunt had breast cancer. COMPARISONS: Comparison is made to exams dated: 04/10/2017, 11/10/2016, and 10/07/2015 [facility]. BREAST TISSUE:There are scattered fibroglandular densities in both breasts. FINDINGS: No significant masses, calcifications, or other findings are seen in either breast. There has been no significant interval change. IMPRESSION: BI-RAD 1 NEGATIVE There is no mammographic evidence of malignancy. A 1 year screening mammogram is recommended. The patient has been or will be contacted. The patient will be entered into a reminder system with a target due date of 1 year for her next screening exam. Electronically signed by: Yrn syed/regla:05/08/2018 08:57:19 Order Desk Clerk: Sidra Buck)(Chen), [facility] letter sent: Normal Exam Reading location: [facility] BI-RADS: 1 Negative Procedure Note Yrn Burr MD - 05/08/2018 - [facility] SCREENING BILATERAL DIGITAL W CAD W VERA BILATERAL DIGITAL SCREENING MAMMOGRAM 3D/2D WITH CAD WITH MEDIOLATERAL OBLIQUE CRANIOCAUDAL: 04/15/2018 The study was acquired using digital technology and interpreted from soft copy. Current study was also evaluated with ICAD version 7.2. CLINICAL: Routine screening. Patient has no complaints. No personal history of cancer. Mother with postmenopausal breast cancer. Sister with breast cancer. Maternal aunt had breast cancer. COMPARISONS: Comparison is made to exams dated: 04/10/2017, 11/10/2016, and 10/07/2015 [facility]. BREAST TISSUE:There are scattered fibroglandular densities in both breasts. FINDINGS: No significant masses, calcifications, or other findings are seen in either breast. There has been no significant interval change. IMPRESSION: BI-RAD 1 NEGATIVE There is no mammographic evidence of malignancy. A 1 year screening mammogram is recommended. The patient has been or will be contacted. The patient will be entered into a reminder system with a target due date of 1 year for her next screening exam. Electronically signed by: Yrn syed/regla:05/08/2018 08:57:19 Order Desk Clerk: Sidra Buck)(M), [facility] letter sent: Normal Exam Reading location: [facility] BI-RADS: 1 Negative Cher Garcia MD IMG MAMMO ORDERABLE S Final Result * CT CHEST W CONTRAST (06/23/2015 8:04 PM CDT) Anatomical Region Laterality Modality Chest N/A Computed Tomogra phy 06/23/2015 8:26 PM CDT Impressions 06/23/2015 8:29 PM CDT IMPRESSION: 1. No pulmonary embolism. 2. Severe hepatic steatosis. Narrative 06/23/2015 8:29 PM CDT EXAMINATION: CT chest with contrast HISTORY: Shortness of breath. Elevated D-dimer. COMPARISON: CT chest 12/11/2012. TECHNIQUE: Enhanced axial CT images of the chest were obtained after the administration of 100 mL Isovue 370 contrast through the left forearm IV. No contrast reaction. Total DLP: 1088 mGy-cm. FINDINGS: Pulmonary embolism: There is no pulmonary embolism. Lung windows: The trachea has normal caliber and appearance. No bronchial wall thickening or bronchiectasis. No focal consolidation or pleural effusion. Linear atelectasis in the right upper lobe and bilateral lung bases. No suspicious pulmonary nodule. No pneumothorax. Mediastinum: The heart has normal size. No pericardial effusion. Thoracic aorta has normal caliber and appearance. No thyroid nodules. Esophagus is unremarkable. No mediastinal, hilar, or axillary adenopathy. Bone windows: Anterior cervical fixation in the lower cervical spine. No suspicious bone lesions. Other: Severe hepatic steatosis. THIS IS AN ELECTRONICALLY VERIFIED REPORT 06/23/2015 8:26 PM: Isabel Gtz M.D. Radiologist RB:jason BAG Procedure Note Jn, Zhane M, MD - 06/23/2015 EXAMINATION: CT chest with contrast HISTORY: Shortness of breath. Elevated D-dimer. COMPARISON: CT chest 12/11/2012. TECHNIQUE: Enhanced axial CT images of the chest were obtained after the administration of 100 mL Isovue 370 contrast through the left forearm IV. No contrast reaction. Total DLP: 1088 mGy-cm. FINDINGS: Pulmonary embolism: There is no pulmonary embolism. Lung windows: The trachea has normal caliber and appearance. No bronchial wall thickening or bronchiectasis. No focal consolidation or pleural effusion. Linear atelectasis in the right upper lobe and bilateral lung bases. No suspicious pulmonary nodule. No pneumothorax. Mediastinum: The heart has normal size. No pericardial effusion. Thoracic aorta has normal caliber and appearance. No thyroid nodules. Esophagus is unremarkable. No mediastinal, hilar, or axillary adenopathy. Bone windows: Anterior cervical fixation in the lower cervical spine. No suspicious bone lesions. Other: Severe hepatic steatosis. THIS IS AN ELECTRONICALLY VERIFIED REPORT 06/23/2015 8:26 PM: Isabel Gtz M.D. Radiologist RB:jason BAG IMPRESSION: 1. No pulmonary embolism. 2. Severe hepatic steatosis. Baron Bansal MD IM CT ORDERABLES Final Res ult from Last 3 Months or Most Recently Relevant to Health Maintenance Insurance MEDICARE [facility] Care Teams Glass Toughening Operator Relationship Specialty Start Date End Date Kenyatta Comer MD [address] [place] [address] PCP - General Internal Medicine 03/02/17 Afshin Willis MD General Surgery 05/17/16 Sumanth Chan MD [address] [address] Consulting Physician Colon and Rectal Surgery 06/10/24
--- OUTSIDE RECORDS SUMMARY | 2024-07-14 13:57 | XMS_ITS | Encounter Summary ---
Author Organization [facility] Address [address] [place] [address] Phone Care Team Providers Care Studio Camera Operator Name Role Phone Chago Randolph MD Unavailable Zachary Hurley MD Unavailable Betzaida Subramanian NP Unavailable [phone] Naveed Fernandez MD Primary Care Provider Yony Barker MD Unavailable Osvaldo Feldman MD Unavailable Aminah Cheung OD Unavailable Jay Marc MD Unavailable Flori Sotelo Unavailable Kostas Lr MD Unavailable Jay Marc MD Unavailable Encounter Details Date Type Department Care Team (Late st Contact Info) Description 10/25/2021 Orders Only [facility] [address] [place] [address] Naveed Fernandez MD [address] [place] [address] Social History Tobacco Use Types Packs/Day Years Used Date Smoking Tobacco: Heavy Smoker Cigarettes 1 47.3 Started: [birth year]/19/1977 Smokeless Tobacco: Never Comments:40 pack/years Alcohol Use Standard Drinks/Week Comments Not Currently 0 (1 standard drink = 0.6 oz pur e alcohol) Social Connection and Isolation Panel [NHANES] A nswer Date Recorded Frequency of Communication with Friends and Fami ly Not on file 01/30/2020 Frequency of Social Gatherings with Friends and Family Not on file 01/30/2020 How often do you attend baptism or jew serv ices? Never 01/30/2020 Do you belong to any clubs o r organizations such as baptism groups, unions, fraternal or athletic groups, or school groups? No 01/30/2020 How often do you attend meet ings of the clubs or organizations you belong to? Never 01/30/2020 Marital Status Not on file 01/30/2020 Overall Financial Resource Strain (CARDIA) Answe r Date Recorded How hard is it for you to pa y for the very basics like food, housing, medical care, and heating? Not very hard 01/30/2020 PHQ-2 Answer Date Recorded PHQ-2 Total Score (If total score is 3 or more points, staff should administer the PHQ-9) 0 10/14/2021 Hunger Vital Sign Answer Date Recorded Within the past 12 months, y ou worried that your food would run out before you got the money to buy more. Sometimes true Within the past 12 months, t he food you bought just didn't last and you didn't have money to get more. Sometimes true PRAPARE - Transportation Answer Date Re corded In the past 12 months, has l ack of transportation kept you from medical appointments or from getting medications? No 11/18 In the past 12 months, has l ack of transportation kept you from meetings, work, or from getting things needed for daily living? No 12/08/2019 Comments No Sex and Gender Information Value Date Recorded Sex Assigned at Not on file Legal Sex Female 1:21 PM INTERMISSION COORDINATOR Gender Identity Female 05/05/2022 8:09 AM INTERMISSION COORDINATOR Sexual Orientation Straight 11/04/2018 1: 20 PM CDT Occupation Industry Job Start Date Job End Date disabled Not on file Not on file Not on file documented as of this encounter Plan of Treatment Not on file documented as of this encounter Procedures Procedure Name Priority Date/Time Associated Diagnosis Comments SCAN - LABS 10/25/2021 documented in this encounter Results * SCAN - LABS (10/25/2021) Naveed Fernandez MD Final Result documented in this encounter Visit Diagnoses Not on filedocumented in this encounter Additional Health Concerns Infection Onset Date Last Indicated Resolved Time COVID: Suspected 11/02/2021 11/02/2021 11/02/2021 3:17 PM CDT documented as of this encounter Care Teams Studio Camera Operator Relationship Specialty Start Date End Date Naveed Fernandez MD [address] [facility] [address] [place] [address] PCP - General Internal Medicine 10/14/21 [place] [address] [facility] [address] [place] [address] Consulting Physician Endocrinology Diabetes & Metabolism 01/21/19 [place] [address] [facility] [address] [place] [address] Referring Physician Psychiatry 01/21/19 Betzaida Subramanian, [place] [address] [facility] [address] [place] [address] Nurse Practitioner Obstetrics and Gynecology 01/04/21 04/20/24 Yony Barker MD [address] [facility] [address] [place] [address] Referring Physician Pain Management 06/16/22 10/25/22 [place] [address] [facility] [address] [place] [address] Consulting Physician Pain Management 09/25/22 Aminah Cheung OD [address] [facility] [address] Consulting Physician Optometry 01/18/23 Jay Marc MD [address] [place] [address] Surgeon Orthopedic Surgery 04/20/23 04/20/24 Flori Sotelo PA [address] [place] [address] [id number] Physician Cottage Master Pulmonary Disease 01/26/24 Kostas Lr MD [address] [place], [place] [id number] Consulting Physician Cardiology 02/22/24 Jay Marc MD [address] [place] [address] Surgeon Orthopedic Surgery 04/21/24 documented as of this encounter
--- OUTSIDE RECORDS SUMMARY | 2024-07-14 13:57 | XMS_ITS | Clinical Summary ---
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 Active levothyroxine 137 mcg tablet Take 125 mcg by mouth daily in the morning. Active atorvastatin 40 mg tablet Take 40 mg by mouth daily at bedtime. Active nortriptyline 10 mg capsule Take 10 mg by mouth daily at bedtime. Active LORAZEPAM ORAL Take 0.5 mg by mouth 3 times daily as needed for Other (See Comment). Active metFORMIN (GLUCOPHAGE) 500 mg tablet Take 500 mg by mouth 2 times daily with meals. Active Blood-Glucose Meter Use to check blood glucose once daily. 4 Active lancets 32 gauge Use to test blood glucose once daily. 4 Active naloxone (NARCAN) 4 mg/spray Isabel, Non-Aerosol Administer 1 Isabel in each nostril. 3 Active liothyronine (CYTOMEL) 5 mcg Tablet Take 2 Tablets (10 mcg) by mouth 2 times daily. 120 Tablet 4 Active gabapentin (NEURONTIN) 300 mg capsule Take 2 Capsules (600 mg) by mouth 3 times daily. 180 Capsule 4 Active ergocalciferol (VITAMIN D2) 50,000 unit capsule Take 50,000 Units by mouth every . 4 Active desvenlafaxine (PRISTIQ) 100 mg Extended Release 24 hour tablet Take 100 mg by mouth daily. Active famciclovir (FAMVIR) 250 mg Tablet Take 250 mg by mouth 2 times daily. 4 Active prochlorperazine maleate (COMPAZINE) 10 mg tablet Take 10 mg by mouth. 4 Active diazePAM (VALIUM) 10 mg tablet Take 10 mg by mouth every 8 hours as needed for Anxiety. Active CALCIUM CARBONATE-VITAMIN D3 ORAL Take by mouth. Activ e Breztri Aerosphere 160 mcg-9mcg-4.8mcg/ac tuation HFA aerosol inhaler Take by inhalation 2 times daily. Active ketorolac tromethamine (TORADOL) 10 mg tablet Take 1 Tablet (10 mg) by mouth every 6 hours as needed for moderate pain. 20 Tablet 03/30/2024 1:16 PM COUNCIL MEMBER 5 Active losartan (COZAAR) 50 mg tablet Take 50 mg by mouth daily. Active propranoloL (INDERAL) 60 mg Tablet Take 60 mg by mouth 2 times daily. Active QUEtiapine (SEROquel) 300 mg tablet Take 300 mg by mouth daily at bedtime. Active albuterol sulfate HFA 90 mcg/actuation aerosol inhaler Take 2 Puffs by inhalation every 6 hours as needed for Shortness of Breath. 8.5 Gram 04/03/2024 2:51 PM COUNCIL MEMBER 5 Active cyclobenzaprine (FLEXERIL) 5 mg Tablet Take 1 Tablet (5 mg) by mouth 3 times daily as needed for Spasm. 90 Tablet 04/03/2024 2:51 PM COUNCIL MEMBER 5 Active albuterol (PROVENTIL,VENTOLI N) 2.5 mg /3 mL (0.083 %) Solution for Nebulization Take 3 mL (2.5 mg) by inhalation every 6 hours as needed for Shortness of Breath or Wheezing. 90 mL 04/03/2024 2:51 PM COUNCIL MEMBER Active predniSONE (DELTASONE) 20 mg tablet Starting 04/04: Take 2 Tablets (40 mg) by mouth daily with breakfast. 2 Tablet 04/03/2024 2:51 PM COUNCIL MEMBER Active oxyCODONE (ROXICODONE) 10 mg tabletIndications: Spondylosis without myelopathy or radiculopathy, sacral and sacrococcygeal region Take 1 Tablet (10 mg) by mouth every 6 hours as needed for Pain. Max Daily Amount: 40 mg 20 Tablet 04/03/2024 2:51 PM COUNCIL MEMBER Active polyethylene glycol 3350 (MIRALAX) 17 gram/dose Powder Starting 04/04: Dissolve 1 capful (17 Grams) in 8 ounces of fluid and drink by mouth once daily. 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 03/27/2024 Postoperative wound infection 05/17/2023 Hyperkalemia 05/17/2023 Hypotension due to drugs 05/17/2023 Severe obesity (BMI >= 40) 05/13/2023 Type 2 diabetes mellitus with other specified co mplication 04/21/2023 Urgency of urination 04/20/2023 Encounter for general adult medical examination with abnormal findings 04/20/2023 Furuncle of pubic region 03/26/2023 Hordeolum of right eye 04/07/2022 Type 2 diabetes mellitus with hyperglycemia 01/18 Overview (04/20/2023): Last Assessment & Plan: She progressed from borderline diabetes to paige diabetes, and HbA1c was above eight when last checked. She realized it was due to her diet and weight gain so she has significantly modified things. We also started her on metformin which she is tolerating well. Fasting blood sugars for the last several days have been between 125 and 135 mg/dL so her next HbA1c should be in a more reasonable range. We discussed the risk for surgery on her back, primarily related to infection and poor healing. She has already modified some of these risks by quitting smoking and getting her diabetes under control. Her surgeon does not have a cutoff value for hemoglobin A1c, so after discussing risks versus benefits and reviewing history for any acute problems, I do not see any medical contraindication to proceeding. Follow-up here in three months. Hyperlipidemia associated with type 2 diabetes alfie gaytan 02/06/2022 Overview (04/20/2023): Last Assessment & Plan: She takes generic Lipitor, tolerating well. We will monitor labs periodically. Seborrheic dermatitis 09/16/2021 Overview (04/20/2023): Bilateral external auditory meatus and surrounding external ear. Last Assessment & Plan: For the past year or so, she is noted an itchy feeling at the external auditory meatus bilaterally and in the surrounding external ear. Exam shows a probable seborrheic dermatitis. We will have her start some ketoconazole cream. If not responding, she will let us know. Insomnia secondary to chronic pain 06/29/2021 Degenerative disc disease, cervical 06/29/2021 Overview (04/20/2023): Last Assessment & Plan: She might have right-sided cervical radiculopathy symptoms in the form of sharp pains in the right upper arm with certain movements of the arm and shoulder. However I think radiation of pain from the shoulder itself is more likely. Neurological exam of the upper extremities is normal. Displacement of lumbar inter vertebral disc without myelopathy 01/04/2021 Seborrheic keratosis 10/18/2020 Overview (04/20/2023): Last Assessment & Plan: - Benign, reassurance Last Assessment & Plan: - Benign, reassurance Primary focal hyperhidrosis of palms 10/18/2020 Overview (04/20/2023): Last Assessment & Plan: -Patient able to deal with sole sweating, does not desire specific treatment today -Will start oxybutynin 2.5 mg BID for 3 weeks, then 5 qam and 2.5 q pm for 3 weeks then 5 BID for 3 weeks until follow up Last Assessment & Plan: Hyperhidrosis of scalp and chest -Patient desires to treat scalp and face most strongly -Will apply dry-jimi to these areas -Will start oxybutynin 2.5 mg BID for 3 weeks, then 5 qam and 2.5 q pm for 3 weeks then 5 BID for 3 weeks until follow up Last Assessment & Plan: Hyperhidrosis of scalp and chest -Patient desires to treat scalp and face most strongly -Will apply dry-jimi to these areas -Will start oxybutynin 2.5 mg BID for 3 weeks, then 5 qam and 2.5 q pm for 3 weeks then 5 BID for 3 weeks until follow up Last Assessment & Plan: -Patient able to deal with sole sweating, does not desire specific treatment today -Will start oxybutynin 2.5 mg BID for 3 weeks, then 5 qam and 2.5 q pm for 3 weeks then 5 BID for 3 weeks until follow up Last Assessment & Plan: -Patient is able to deal with sweating of palms, does not desire specific treatment today -Will start oxybutynin 2.5 mg BID for 3 weeks, then 5 qam and 2.5 q pm for 3 weeks then 5 BID for 3 weeks until follow up Last Assessment & Plan: -Patient is able to deal with sweating of palms, does not desire specific treatment today -Will start oxybutynin 2.5 mg BID for 3 weeks, then 5 qam and 2.5 q pm for 3 weeks then 5 BID for 3 weeks until follow up Urge incontinence 09/16/2020 Overview (04/20/2023): Last Assessment & Plan: She has had two bladder slings for probable overflow incontinence, but now is experiencing urgency and occasional urge incontinence. We will check bladder volumes and consider medications if appropriate. WILFRED on CPAP 09/16/2020 Overview (04/20/2023): Had a sleep study years ago. Snores (terribly). Tired when she wakes up. Home sleep study reported 11/16/2021: 1. Moderate obstructive sleep apnea syndrome. 2. 1 hour and 46 minutes of oxygen saturation less than 88% with documented. 3. Consider Positive Airway Pressure (PAP) devices such as continuous PAP (CPAP), auto-adjusting PAP (APAP), and bi-level PAP (Bi-PAP). 4. CPAP titration to determine optimal pressure required to alleviate sleep disordered breathing 5. Sleep hygiene should be reviewed to assess factors that may improve sleep quality. 6. Weight management and regular exercise should be initiated or continued 7. Avoid alcohol sedatives and other ASSISTANT PROFESSOR OF SOCIOLOGY depression that may worsen sleep apnea and disrupt normal sleep architecture CPAP titration read 03/15/2022: Bilevel therapy with inspiratory positive airway pressure of 17 cm and expiratory positive pressure 13 cm was found to be best attempted settings. Last Assessment & Plan: Continue BiPAP. Hyperhidrosis of face 08/06/2020 Overview (04/20/2023): Last Assessment & Plan: Recent labs were all within normal range with exception of her TSH which was slightly elevated. She was seen by the nurse practitioner at that time who increased her levothyroxine to 150 mcg daily. Patient does have a nuclear scientist, advised patient to follow-up with nuclear scientist. She is taking a medication, Cytomel, which has a common side effect of diaphoresis. Encouraged patient to speak to her nuclear scientist about possibly discontinuing this medication. Last Assessment & Plan: Recent labs were all within normal range with exception of her TSH which was slightly elevated. She was seen by the nurse practitioner at that time who increased her levothyroxine to 150 mcg daily. Patient does have a nuclear scientist, advised patient to follow-up with nuclear scientist. She is taking a medication, Cytomel, which has a common side effect of diaphoresis. Encouraged patient to speak to her nuclear scientist about possibly discontinuing this medication. Herpes simplex infection 01/19/2020 Essential hypertension 01/19/2020 Memory loss 01/19/2020 Hyperplastic polyp of sigmoid colon 01/01/2020 Overview (04/20/2023): Colonoscopy 04/23/2017 [facility] everywhere Colonoscopy 04/23/2017 [facility] everywhere Chronic migraine without aur a without status migrainosus, not intractable 12/26/2019 Overview (04/20/2023): Last Assessment & Plan: Stable. Cont. Current prescription medications. Scalp lesion 08/07/2019 Overview (04/20/2023): Last Assessment & Plan: Referred to dermatology for further eval/mgmt. Spondylosis without myelopat hy or radiculopathy, sacral and sacrococcygeal region 01/21/2019 Overview (04/20/2023): Last Assessment & Plan: She is scheduled for low back surgery to remove hardware placed in 2015 and perform an interbody lumbar fusion. Surgery will be done by Dr. Marc. Recent labs are stable except for uncontrolled diabetes which is improved since starting a stricter diet and metformin. Follow-up here in three Sacroiliitis 01/21/2019 Vitamin D deficiency 11/06/2018 Overview (04/20/2023): Managed by endocrinology. Last Assessment & Plan: Check 25 OH vit D Adjust dose of Ergocalciferol accordingly Managed by endocrinology. Last Assessment & Plan: Continue Ergocalciferol, 50,000 international units weekly Neck pain on right side 07/17/2018 Severe episode of recurrent major depressive disorder, without psychotic features 08/30/2017 Influenza vaccination declined by patient 2017 Lumbosacral spondylolysis 05/06/2015 Overview (05/06/2015): with sciatica, L5S1/ TLIF performed by Dr Marc on 05/05/2015, OR EBL 300 ml COPD with exacerbation 05/06/2015 Acquired hypothyroidism 05/06/2015 Cigarette nicotine dependence without complicati on 03/26/2015 Overview (04/20/2023): Last Assessment & Plan: Advised patient to quit smoking. Facet arthropathy, lumbosacral 02/24/2015 Poliomyelitis osteopathy of multiple sites 08/02 Overview (04/20/2023): This diagnosis was linked to a prescription for a muscle relaxer from her former PCP. Last Assessment & Plan: Patient seen by pain management, she was started on tramadol. Follow-up pain management. Continue meloxicam, tizanidine, and gabapentin. POLIO OSTEOPATHY-MULT Lymphocytic thyroiditis 08/02/2013 Overview (04/20/2023): CHR LYMPHOCYT THYROIDIT Tobacco use disorder 08/11/2009 Depression with anxiety 08/11/2009 Postlaminectomy syndrome Chronic low back pain Hand numbness Fatty liver Resolved Problems Problem Noted Date Diagnosed Date Resolved Date Pneumonia due to infectious organism 11/29/2018 04/20/2023 Cervical radiculopathy 07/17/2018 Prediabetes 10/23/2017 04/20/2023 Back pain with left-sided sciatica 09/06/2015 03/21/2017 SHEN (generalized anxiety disorder) 05/06/2015 05/17/2023 Hyponatremia 05/06/2015 05/07/2015 Severe obesity (BMI 35.0-39. 9) with comorbidity 03/02/2015 05/17/2023 Overview (05/06/2015): Body mass index is 37.76 kg/(m^2). Chest pain 08/11/2009 03/21/2017 Cervical pain 05/17/2023 Acute right-sided thoracic back pain 03/21/2017 Encounters Date Type Department Care Team Description 07/07/2024 12:14 PM CDT - 07/07/2024 11:59 PM CDT Hospital Encounter [facility] Radiology [address] [place] [address] Jay Marc MD Discharge Disposition: Home or Self Care 05/28/2024 External Device Data STL ABSTRACTION Provider, Abstract 05/27/2024 External Device Data STL ABSTRACTION Provider, Abstract 05/20/2024 10:03 AM COUNCIL MEMBER - 05/20/2024 11:59 PM COUNCIL MEMBER Hospital Encounter [facility] [address] [place] [address] Jay Marc MD Discharge Disposition: Home or Self Care 04/21/2024 9:58 AM COUNCIL MEMBER - 04/21/2024 11:59 PM COUNCIL MEMBER Hospital Encounter [facility] [address] [place] [id number] Jay Marc MD Discharge Disposition: Home or Self Care 04/16/2024 External Device Data STL ABSTRACTION Provider, Abstract from Last 3 Months Immunizations Immunization Administration Dates Next Due (ADACEL/BOOSTRIX)(10 YR UP) TDAP VACCINE, 0.5ML, IM 05/18/2023 (PREVNAR 20)(6 WKS UP) PNEUM OCOCCAL CONJUGATE VACCINE 20-VALENT (PCV20), POLYSACCHARIDE [id number] CONJUGATE, ADJUVANT 0.5 ML (PF) IM 05/18/2023() (TDVAX)(7 YRS UP) TETANUS AN D DIPHTHERIA TOXOIDS, ADSORBED (2 LF OF TETANUS TOXOID AND 2 LF OF DIPHTHERIA TOXOID), 0.5ML (PF), IM 10/13/2013 INFLUENZA VACCINE QUADRIVALENT 3 YR UP PF IM INFLUENZA VACCINE QUADRIVALENT 6 MOS UP PF IM ,01/11/2018 Influenza Seasonal Unspecified Formulation IM Pneumococcal Polysaccharide Vacc 23-woo IM SCHIP 04/18/2013,03/19/2010 Family History Medical History Relation Name Comments Diabetes Father Other Father Alzheimers Breast Cancer Mother Diabetes Mother Heart Disease Mother Diabetes Sister Stroke Sister Relation Name Status Comments Father Mother Sister Alive Social History Tobacco Use Types Packs/Day Years Used Date Smoking Tobacco: Former Cigarettes 1 40 Passive Smoke Exposure: Past Smokeless Tobacco: Never Tobacco Cessation:Counseling Given: Not Answered Alcohol Use Standard Drinks/Week Comments No 0 (1 standard drink = 0.6 oz pur e alcohol) Feeling Safe Answer Date Recorded Within the last year, have y ou been afraid of your partner or ex-partner? No 04/20/2023 Within the last year, have y ou been humiliated or emotionally abused in other ways by your partner or ex-partner? No Within the last year, have y ou been kicked, hit, slapped, or otherwise physically hurt by your partner or ex-partner? No 04/20/2023 Within the last year, have y ou been raped or forced to have any kind of sexual activity by your partner or ex-partner? No 04/20/2023 Social Connections Answer Date Recorded In a typical week, how many times do you talk on the telephone with family, friends, or neighbors? More than three times a week 04/20/2023 How often do you get togethe r with friends or relatives? More than three times a week 04/20/2023 Attends Hindu Services Not on file 04/20 Active Member of Clubs or Organizations Not on f ile 04/20/2023 Attends Club or Organization Meetings Not on juli e 04/20/2023 Are you , , di vorced, , never , or living with a partner? 04/20/2023 Financial Resource Strain Answer Date R ecorded How hard is it for you to pa y for the very basics like food, housing, medical care, and heating? Not very hard 04/20/2023 Food Insecurity Answer Date Recorded In the past 12 months, have you worried that your food would run out before you had money to buy more? Never true 04/20/2023 In the past 12 months, did y ou run out of food and didn't have money to buy more? Never true 04/20/2023 Transportation Needs Answer Date Record ed In the past 12 months, has l ack of transportation kept you from medical appointments or from getting medications? No 04/2023 In the past 12 months, has l ack of transportation kept you from meetings, work, or from getting things needed for daily living? No 04/20/2023 Housing Stability Answer Date Recorded In the last 12 months, was t here a time when you were not able to pay the mortgage or rent on time? No 04/20/2023 Number of Times Moved in the Last Year Not on fi le 04/20/2023 Unstable Housing in the Last Year Not on file 04/20/2023 Feeling Safe Answer Date Recorded Are you in a relationship wi th someone who hurts you emotionally and/or physically? No 03/31/2024 Food Insecurity Answer Date Recorded Social/Environmental Concerns No concerns Transportation Needs Answer Date Record ed Social/Environmental Concerns No concerns Housing Stability Answer Date Recorded Social/Environmental Concerns No concerns Utility Needs Answer Date Recorded Social/Environmental Concerns No concerns Comments No Sex and Gender Information Value Date Recorded Sex Assigned at Female 01/14/2024 8:12 PM CDT Legal Sex Female 4:52 AM COUNCIL MEMBER Gender Identity Female 01/14/2024 8:12 PM CDT Sexual Orientation Choose not to disclose 2023 8:12 PM CDT Last Filed Vital Signs Vital Sign Reading Time Taken Comments Blood Pressure 129/48 04/03/2024 1:23 PM COUNCIL MEMBER Pulse 63 04/03/2024 1:23 PM COUNCIL MEMBER Temperature 36.6 C (97.8 F) 04/03/2024 1:23 PM COUNCIL MEMBER Respiratory Rate 12 04/03/2024 8:08 AM COUNCIL MEMBER Oxygen Saturation 91% 04/03/2024 1:23 PM COUNCIL MEMBER Inhaled Oxygen Concentration - - Weight 125.9 kg (277 lb 9 oz) 03/31/2024 11:21 P M COUNCIL MEMBER Height 172.7 cm (5' 8 ) 03/31/2024 2:26 PM COUNCIL MEMBER Body Mass Index 42.2 03/31/2024 2:26 PM COUNCIL MEMBER Plan of Treatment Upcoming Encounters Date Type Department Care Team (Late st Contact Info) Description 07/22/2024 10:30 AM CDT Appointment [facility] [address] [facility] [address] [place] [address] Jay Marc MD [address] [facility] [address] [place] [address] Health Maintenance Due Date Last Done Comments DIABETES ANNUAL RETINAL EXAM 1978 DIABETES MICROALBUMIN ANNUAL SCREEN 1978 FIT-DNA Q 3 years 2005 FIT/FOBT Q 1 year 2005 Flex Sig/CT Colonography Q 5 years 2005 RSV VACCINE (60+ or ) (1 - Risk 60-74 years 1-dose series) 2020 LDL CHOLESTEROL ANNUAL 01/17/2021 0, 08/16/2018, 10/25/2017, Additional history exists BREAST CANCER SCREENING 09/07/2022 09/08/19 22, 08/05/2020, 05/26/2019, Additional history exists COVID-19 Vaccine (2023-2 5 season) 2023 06/06/2020, 05/14/2020 DIABETES HBA1C Q 6 MONTHS 12/24/20242024, 04/21/2024, 03/06/2024, Additional history exists DIABETES ANNUAL FOOT EXAM 01/24/2025 01/25/2024 COLORECTAL SCREENING 04/23/2027 04/23/2017, 03/19/19 Colorectal Cancer Screening 04/23/2027 DTAP/TDAP/TD VACCINES (2 - T d or Tdap) 05/17/2033 05/18/2023, 10/13/2013, 03/19/2013 Lung Cancer Screening Discontinued 09/07/2021 , 02/23/2020, 02/19/2019 ZOSTER VACCINE Completed 07/19/2022, 05/07/2022 INFLUENZA VACCINE Completed 01/09/2024, , 05/07/2022, Additional history exists Medical Devices Implanted Type Area Reconnaissance Man Device Identifier Shelf Expiration Date Model / Serial / Lot Infuse Protein Kit [id number] - [id number] Implanted:Qty: 1 on 05/05/2015 by Jay Marc MD at [facility] N/A: Back [employer]ANEK [id number] 04/18/2017 [id number] / / [id number] [facility] Infuse Protein Kit [facility] [id number] - [id number] Implanted:Qty: 1 on 04/20/2023 by Jay Marc MD at [facility] N/A: Spine Lumbar [employer] SOF[employer]ANEK 2025 [id number] / / [id number] Sealant Duraseal 5ml [id number] Implanted:Qty: 1 on 03/26/2024 by Jay Marc MD at [facility] N/A: Spine Thoracic [employer] 07/16/2024 / / [id number] Infuse Protein Kit Med [id number] - [id number] Implanted:Qty: 1 on 03/26/2024 by Jay Marc MD at [facility] [employer] [facility] N/A: Spine Thoracic [employer]- SOFAMOR [employer]K [id number] 01/17/2025 [id number] / / [id number] Allgrft Spacer Acf 7mm [id number] - [id number] Implanted:Qty: 1 on 11/29/2016 by Jay Marc MD at [facility] Bone N/A: Spine Cervical Anterior MUSCULOSKELETAL TRANSPLANT FOU 11/16/2020 [id number] / [id number] / Description:BOTH MTF SPACERS PROCESSED ON REQ# [id number] Allgrft Spacer Acf 7mm [id number] - [id number] Implanted:Qty: 1 on 11/29/2016 by Jay Marc MD at [facility] Bone N/A: Spine Cervical Anterior MUSCULOSKELETAL TRANSPLANT FOU 12/06/2020 [id number] / [id number] / Allgrft Vivigen Matrix 10ml Bl-1500-003 - [id number] Implanted:Qty: 1 on 07/13/2017 by Jay Marc MD at [facility] Bone N/A: Spine Cervical Posterior LIFENET 01/05/2018 BL-1500-003 / [id number] / Description:REQ#[id number] Allgrft Vivigen Matrix 10ml Bl-1500-003 - [id number] Implanted:Qty: 1 on 07/13/2017 by Jay Marc MD at [facility] Bone N/A: Spine Cervical Posterior LIFENET 01/03/2018 BL-1500-003 / [id number] / Hemostatic Surgiflo 8ml W/Thrombin 2994 - [id number] Implanted:Qty: 1 on 07/13/2017 by Jay Marc MD at [facility] Hemostati c N/A: Spine Cervical Posterior [employer] 09/15/2018 2994 / / [id number] Hemostatic Surgifoam Sz12-7 1972 - [id number] Implanted:Qty: 1 on 04/20/2023 by Jay Marc MD at [facility] Hemostati c N/A: Spine Lumbar J&J- [employer] 12/13/2026 1972 / / [id number] Hemostatic Surgiflo 8ml W/ Thrombin 2994 - [id number] Implanted:Qty: 1 on 04/20/2023 by Jay Marc MD at [facility] Hemostati c N/A: Spine Lumbar J[employer] [id number] 06/16/2024 2994 / / [id number] Hemostatic Surgiflo 8ml W/ Thrombin 2994 - [id number] Implanted:Qty: 1 on 04/20/2023 by Jay Marc MD at [facility] Hemostati c N/A: Spine Lumbar J[employer] [id number] 04/18/2024 2994 / / [id number] Hemostatic Surgiflo 8ml W/ Thrombin 2994 - [id number] Implanted:Qty: 1 on 04/20/2023 by Jay Marc MD at [facility] Hemostati c N/A: Spine Lumbar J[employer] [id number] 04/18/2024 2994 / / [id number] Hemostatic Surgiflo 8ml W/ Thrombin 2994 - [id number] Implanted:Qty: 1 on 04/20/2023 by Jay Marc MD at [facility] Hemostati c N/A: Spine Lumbar J[employer] [id number] 05/16/2024 2994 / / [id number] Hemostatic Surgiflo 8ml W/ Thrombin 2994 - [id number] Implanted:Qty: 1 on 04/20/2023 by Jay Marc MD at [facility] Hemostati c N/A: Spine Lumbar J[employer] [id number] 05/16/2024 2994 / / [id number] Hemostatic Surgiflo 8ml W/ Thrombin 2994 - [id number] Implanted:Qty: 4 on 03/26/2024 by Jay Marc MD at [facility] Hemostati c N/A: Spine Thoracic J&J- [employer] [id number] 05/16/2025 2994 / / [id number] Hemostatic Surgiflo 8ml W/ Thrombin 2994 - [id number] Implanted:Qty: 3 on 03/26/2024 by Jay Marc MD at [facility] Hemostati c N/A: Spine Thoracic J[employer]- [employer] [id number] 05/16/2025 2994 / / [id number] Hemostatic Surgiflo 8ml W/ Thrombin 2994 - [id number] Implanted:Qty: 2 on 03/26/2024 by Jay Marc MD at [facility] Hemostati c N/A: Spine Thoracic J[employer]- [employer] [id number] 03/18/2025 2994 / / [id number] Hemostatic Surgifoam Sz100 1973 - [id number] Implanted:Qty: 1 on 03/26/2024 by Jay Marc MD at [facility] Hemostati c N/A: Spine Thoracic J&J- [employer] [id number] 12/27/2027 1974 / / [id number] Hemostatic Surgifoam Sz12-7 1971 - [id number] Implanted:Qty: 1 on 03/26/2024 by Jay Marc MD at [facility] Hemostati c N/A: Spine Thoracic J&J- [employer] [id number] 01/15/2028 1972 / / [id number] Hemostatic Surgiflo 8ml W/ Thrombin 2994 - [id number] Implanted:Qty: 1 on 03/26/2024 by Jay Marc MD at [facility] Hemostati c N/A: Spine Thoracic J[employer]- [employer] [id number] 02/15/2025 2994 / / [id number] Plate Cslp Leonard Ang 66mm 450.175 - Sload 411, Sterilized 11/23/2016 Implanted:Qty: 1 on 11/29/2016 by Jay Marc MD at [facility] Plate N/A: Spine Cervical Anterior SYNTHES-STRATEC- SPINAL 450.175 / LOAD 411, STERILIZED 11/23/2016 / Description:ALL GalaDo SPIN E HARDWARE PROCESSED ON REQ# [id number] 3.5mm Ti Curved Harsh 75mm Implanted:Qty: 2 on 07/13/2017 by Jay Marc MD at [facility] Harsh N/A: Spine Cervical Posterior 04.614.775 / / STERILIZED -07/13/17; VAC- 9; LOAD- [id number] Description:REQUISITION # 78 [id number] Harsh Cdh Ccm 5.5x60mm Crvd [id number] - [id number] Implanted:Qty: 2 on 04/20/2023 by Jay Marc MD at [facility] Harsh N/A: Spine Lumbar MEDTRONIC- SOFAMOR DANEK [id number] / / LAOD 37, 04/17/23 100mm Medtronic Prebent Harsh Implanted:Qty: 2 on 03/26/2024 by Jay Marc MD at [facility] Harsh N/A: Spine Thoracic MEDTR[employer] - COVIDIEN [id number] / / LOAD 13 STERILIZED 03/20/2024 Description:REQ [id number] Screw Xpnhead C Spine 4.43i13ld 487.056 - Sload 411, Sterilized 11/23/2016 Implanted:Qty: 8 on 11/29/2016 by Jay Marc MD at [facility] Screw N/A: Spine Cervical Anterior SYNTHES STRATEC 487.056 / LOAD 411, STERILIZED 11/23/2016 / Screw Lock C Spine 1.8mm 497.78 - Sload 411, Sterilized 11/23/2016 Implanted:Qty: 8 on 11/29/2016 by Jay Marc MD at [facility] Screw N/A: Spine Cervical Anterior SYNTHES-STRATEC- SPINAL 497.78 / LOAD 411, STERILIZED 11/23/2016 / Screw Canc Polyaxial 3.5x12mm 04.614.012 - Ssterilization 9 Load [id number] Implanted:Qty: 6 on 07/13/2017 by Jay Marc MD at [facility] Screw N/A: Spine Cervical Posterior SYNTHES-STRATEC- MAXIFACIAL 04.614.012 / STERILIZATI ON 9 LOAD [id number] / Description:REQUISITION # 78 [id number] Screw Canc Polyaxial 3.5x14mm 04.614.014 - Ssterilization 9 Load [id number] Implanted:Qty: 2 on 07/13/2017 by Jay Marc MD at [facility] Screw N/A: Spine Cervical Posterior SYNTHES-STRATEC- MAXIFACIAL 04.614.014 / STERILIZATI ON 9 LOAD [id number] / Screw Synapse Locking 04.614.508 - Ssterilization 9 Load [id number] Implanted:Qty: 8 on 07/13/2017 by Jay Marc MD at [facility] Screw N/A: Spine Cervical Posterior SYNTHES-STRATEC- SPINAL 04.614.508 / STERILIZATI ON 9 LOAD [id number] / 7.5mm X 45mm Screw Implanted:Qty: 2 on 04/20/2023 by Jay Marc MD at [facility] Screw N/A: Spine Lumbar MEDTRONIC- SOFAMOR DANEK 02/21/2028 [id number] / / [id number] 7.5mm X 45mm Screw Implanted:Qty: 3 on 04/20/2023 by Jay Marc MD at [facility] Screw N/A: Spine Lumbar MEDTRONIC- SOFAMOR DANEK 02/17/2028 [id number] / / [id number] 7.5mm X 45mm Screw Implanted:Qty: 1 on 04/20/2023 by Jay Marc MD at [facility] Screw N/A: Spine Lumbar MEDTRONIC- SOFAMOR DANEK 03/28/2028 [id number] / / [id number] Screw Solera 5.5/6.0 Breakoff 9293537 - [id number] Implanted:Qty: 6 on 04/20/2023 by Jay Marc MD at [facility] Screw N/A: Spine Lumbar MEDTRONIC- SOFAMOR DANEK [id number] / / LAOD 37, 04/17/23 Lane Coated Multi-Axial Screw For 5.5/6.0 Rods [id number] Implanted:Qty: 3 on 03/26/2024 by Jay Mrac MD at [facility] Screw N/A: Spine Thoracic MEDTRONIC - COVIDIEN 08/30/2028 [id number] / / [id number] Lane Coated Multi-Axial Screw For 5.5/6.0 Rods [id number] Implanted:Qty: 1 on 03/26/2024 by Jay Marc MD at [facility] Screw N/A: Spine Thoracic MEDTR[employer]IC - COVIDIEN 10/20/2027 [id number] / / [id number] Lane Coated Multi-Axial Screw For 5.5/6.0 Rods [id number] Implanted:Qty: 4 on 03/26/2024 by Jay Marc MD at [facility] Screw N/A: Spine Thoracic MEDTRONIC - COVIDIEN 01/06/2029 [id number] / / [id number] Screw Solera 5.5/6.0 Breakoff 4127486 - [id number] Implanted:Qty: 8 on 03/26/2024 by Jay Marc MD at [facility] Screw N/A: Spine Thoracic MEDTRONIC- SOFAMOR DANEK [id number] / / LOAD 13 STERILIZED 03/20/2024 Sealant Floseal W/ Adptr 10ml 9995945 - [id number] Implanted:Qty: 1 on 05/05/2015 by Jay Marc MD at [facility] Sealant N/A: Back BRITTON- BIOSCIENCE 07/16/2016 [id number] / / [id number] Sealant Floseal W/ Adptr 10ml 8244410 - [id number] Implanted:Qty: 1 on 05/05/2015 by Jay Marc MD at [facility] Sealant N/A: Back BRITTON- BIOSCIENCE [id number] 06/16/2016 [id number] / / [id number] Sealant Floseal 10ml 7543732 - [id number] Implanted:Qty: 2 on 11/29/2016 by Jay Marc MD at [facility] Sealant N/A: Spine Cervical Anterior BRITTON- BIOSCIENCE [id number] 01/20/2018 [id number] / / [id number] Log 25137 - Bladder Slings And Tapes - 1 - Sling Gynecare Tvt Exact Tvtrl Implanted:Qty: 1 on 04/18/2010 at [facility] Sling N/A: Urethra J&J- ETH[employer]ON INC 01/16/2011 TVTRL / / [id number] Allgrft Spcr Lmnry T-Plif 11mm 969258 - [id number] Implanted:Qty: 1 on 05/05/2015 by Jay Marc MD at [facility] Spacer N/A: Spine Lumbar MUSCULOSKELETAL TRANSPLANT FOU 09/30/2018 [id number] / [id number] / Description:L5-S1This MTF sp acer was processed on requisition,[id number]. Bone Chips Canc 30ml [id number] - [id number] Implanted:Qty: 1 on 04/20/2023 by Jay Marc MD at [facility] Tissue N/A: Spine Lumbar ALLOSOURCE [id number] 11/20/2027 [id number] / [id number] / Bone Chips Canc 30ml [id number] - [id number] Implanted:Qty: 1 on 04/20/2023 by Jay Marc MD at [facility] Tissue N/A: Spine Lumbar ALLOSOURCE [id number] 11/06/2027 [id number] / [id number] / Explanted Type Area Reconnaissance Man Device Identifier Shelf Expiration Date Model / Serial / Lot Harsh Xpdm Crv W/Line 40mm [id number] - Stray Sterilized May 05, 2015,Load 26 Implanted:Qty: 2 on 05/05/2015 by Jay Marc MD at [facility] Explanted:Qty: 2 on 04/20/2023 by Jay Marc MD at [facility] Harsh N/A: Spine Lumbar J&J- [employer]PUY OR[employer] INC [id number] / TRAY STERILIZED Apr,LOAD 26 / Description:Depuy spinal zaheer dware was processed on requisition,[id number]. Screw Exp Poly 7x40mm - Stray Sterilized May 05, 2015,Load 26 Implanted:Qty: 2 on 05/05/2015 by Jay Marc MD at [facility] Explanted:Qty: 2 on 04/20/2023 by Jay Marc MD at [facility] Screw N/A: Spine Lumbar J&J- DEPUY SPINE INC / TRAY STERILIZED Apr,LOAD 26 / Setscrew Inner - Stray Sterilized May 05, 2015,Load 26 Implanted:Qty: 4 on 05/05/2015 by Jay Marc MD at [facility] Explanted:Qty: 4 on 04/20/2023 by Jay Marc MD at [facility] Screw N/A: Spine Lumbar J&J- DEPUY SPINE INC / TRAY STERILIZED Apr,LOAD 26 / Screw Exp Poly 6x45mm [id number] - [id number] Implanted:Qty: 2 on 05/05/2015 by Jay Marc MD at [facility] Explanted:Qty: 2 on 04/20/2023 by Jay Marc MD at [facility] Screw N/A: Spine Lumbar J&J- DEPUY SPINE INC 179-621 / / Description:Depuy spinal zaheer dware was processed on requisition,[id number]. Cervical Screw Explanted:Qty: 4 on 11/29/2016 by Jay Marc MD at [facility] Bilateral: Spine Cervical Anterior Description:unknown informat ion Cervical Plate Implanted:Qty: 1 Explanted:Qty: 1 on 11/29/2016 by Jay Marc MD at [facility] N/A: Spine Cervical Anterior Description:unknown informat ion Procedures Procedure Name Priority Date/Time Associated Diagnosis Comments XR THORACIC SPINE 2 VW Routine 07/07/2024 12:49 PM CDT Spinal stenosis of thoracic region XR THORACIC SPINE 4+ VW Routine 05/20/2024 10:12 AM COUNCIL MEMBER Postlaminectomy syndrome, not elsewhere classified XR THORACIC SPINE 2 VW Routine 04/21/2024 10:04 AM COUNCIL MEMBER Spinal stenosis, thoracic region HEMOGLOBIN A1C Routine 04/06/2023 12:45 PM COUNCIL MEMBER LIPID PANEL Routine 01/18/2020 3:14 PM COUNCIL MEMBER MAMMO SCREEN BILAT W OR WO CAD Routine 04/15/2018 from Last 3 Months or Most Recently Relevant to Health Maintenance Results * XR THORACIC SPINE 2 VW (07/07/2024 12:49 PM CDT) Only the most recent of2 resultswithin the time period is included. Anatomical Region Laterality Modality Spine Computed Radiogr aphy 07/07/2024 12:4 9 PM CDT Impressions 07/07/2024 5:19 PM CDT IMPRESSION: 1. Stable position of instrumented fusion in the thoracic spine. DICTATION LOCATION: Location 4 Narrative 07/07/2024 5:19 PM CDT EXAMINATION: XR THORACIC SPINE 2 VW HISTORY: See Diagnosis. Spinal stenosis of thoracic region FINDINGS: Comparison is made with a study from May 20, 2024. Alignment is normal. Vertebral bodies are normal in height. Posterior instrumented fusion from T5 through T8 is unchanged in position. Spondylosis is unchanged. Procedure Note Rosalba Bernabe MD - 07/07/2024 EXAMINATION: XR THORACIC SPINE 2 VW HISTORY: See Diagnosis. Spinal stenosis of thoracic region FINDINGS: Comparison is made with a study from May 20, 2024. Alignment is normal. Vertebral bodies are normal in height. Posterior instrumented fusion from T5 through T8 is unchanged in position. Spondylosis is unchanged. IMPRESSION: 1. Stable position of instrumented fusion in the thoracic spine. DICTATION LOCATION: Location 4 Jay aMrc MD DIAGNOSTIC IMAGING ORDERABLES F inal Result * XR THORACIC SPINE 4+ VW (05/20/2024 10:12 AM COUNCIL MEMBER) Anatomical Region Laterality Modality Spine Computed Radiogr aphy 05/20/2024 10:1 2 AM COUNCIL MEMBER Impressions 05/20/2024 3:46 PM COUNCIL MEMBER IMPRESSION: Posterior instrumented fusion in the thoracic spine, without evidence of complication. DICTATION LOCATION: Location 4 Narrative 05/20/2024 3:46 PM COUNCIL MEMBER EXAM: XR THORACIC SPINE 4+ VW DATE: 05/20/2024 10:12 AM CLINICAL HISTORY: Postlaminectomy syndrome, not elsewhere classified COMPARISON: 04/21/2024. FINDINGS: Posterior instrumented fusion from T5-T8. Instrumentation is intact, without suggestion of malposition. No abnormal translational motion between flexion and extension. No evidence of an acute vertebral fracture. Unremarkable visualized intrathoracic contents. Mild generalized disc degeneration in the thoracic region. Partial visualization of a combined anterior and posterior instrumented fusion in the cervical region. Procedure Note Surya Herrera MD - 05/20/2024 EXAM: XR THORACIC SPINE 4+ VW DATE: 05/20/2024 10:12 AM CLINICAL HISTORY: Postlaminectomy syndrome, not elsewhere classified COMPARISON: 04/21/2024. FINDINGS: Posterior instrumented fusion from T5-T8. Instrumentation is intact, without suggestion of malposition. No abnormal translational motion between flexion and extension. No evidence of an acute vertebral fracture. Unremarkable visualized intrathoracic contents. Mild generalized disc degeneration in the thoracic region. Partial visualization of a combined anterior and posterior instrumented fusion in the cervical region. IMPRESSION: Posterior instrumented fusion in the thoracic spine, without evidence of complication. DICTATION LOCATION: Location 4 Jay Marc MD DIAGNOSTIC IMAGING ORDERABLES F inal Result * (ABNORMAL) HEMOGLOBIN A1C (04/06/2023 12:45 PM COUNCIL MEMBER) HEMOGLOBIN A1C 8.0(H) <5.7 % 04/06/2023 1:59 PM COUNCIL MEMBER [facility] EST. AVG GLUCOSE, A1C 183 mg/dL 04/06/2023 1:59 PM COUNCIL MEMBER [facility] [employer] [facility] Blood Venipuncture / Unknown 04/06/2023 12:45 PM COUNCIL MEMBER 04/06/2023 1:32 PM COUNCIL MEMBER [facility] - 04/06/2023 1:59 PM COUNCIL MEMBER HGB A1C INTERPRETATION NORMAL: <5.7% PRE-DIABETES: 5.7 - 6.4% DIABETES: 6.5% OR GREATER Jay Marc MD CHEMISTRY ORDERABLES Final Resu lt [facility] [employer] [facility] CLIA# [id number] [place] [address] * (ABNORMAL) LIPID PANEL (01/18/2020 3:14 PM COUNCIL MEMBER) CHOLESTEROL 170 <200 mg/dL 01/19/2020 6:25 AM [facility] [employer] [facility] TRIGLYCERIDE 254(H) <150 mg/dL 01/19/2020 6:25 AM [facility] [employer] [facility] HDL 36(L) 40 - 59 mg/dL 01/19/2020 6:25 AM [facility] [employer] [facility] LDL CALCULATED 83 <100 mg/dL 01/19/2020 6:25 AM [facility] [employer] [facility] NON-HDL CHOLESTEROL 134(H) <130 mg/dL 01/19/2020 6:25 AM [facility] [employer] [facility] Blood Venipuncture / Unknown 01/18/2020 3:14 PM COUNCIL MEMBER 01/18/2020 3:[address] [facility] [employer] [facility] - 01/19/2020 6:25 AM COUNCIL MEMBER TOTAL CHOLESTEROL mg/dL Desirable <200 Borderline high 200-239 High >=240 TRIGLYCERIDES mg/dL Normal <150 Borderline high 150-199 High 200-499 Very high >=500 HDL CHOLESTEROL mg/dL Low <40 Normal 40-59 Desirable >=60 NON HDL CHOLESTEROL mg/dL Optimal <130 Near Optimal 130-159 Borderline High 160-189 Very High >=190 CALCULATED LDL mg/dL LDL <70, OPTIMAL if have Atherosclerotic cardiovascular disease (ASCVD) or intermediate or higher (>7.5%) 10 year risk of ASCVD including most adults with diabetes. LDL <100, Optimal in adult patients with low (<7.5%) 10 year ASCVD risk LDL 100-160, Suboptimal LDL >160, High LDL >190, Very high ATPIII Guidelines Reference Ranges for Lipid Panels (NCEP/AMA) . Carlos Ventura MD CHEMISTRY ORDERABLES Fi nal Result [facility]# [id number] [address], [place] [address] * MAMMO SCREEN BILAT W OR WO CAD (04/15/2018) Anatomical Region Laterality Modality Breast Bilateral Mammography us Abstract Provider MAMMO ORDERABLES Edited Result - Final from Last 3 Months or Most Recently Relevant to Health Maintenance Insurance MEDICARE PART A AND B [facility] Medicare Part D RX [employer] (INTERNAL) [facility] Advance Directives For more information, please contact: [phone] * Full Code (Latest Code Status on File) Date Activated Date Inactivated Comments 03/31/2024 10:41 PM 04/03/2024 4:50 PM * Full Code Date Activated Date Inactivated Comments 03/26/2024 4:42 PM 03/30/2024 3:28 PM * Full Code Date Activated Date Inactivated Comments 03/26/2024 3:47 PM 03/26/2024 4:42 PM * Full Code Date Activated Date Inactivated Comments 05/17/2023 4:13 PM 05/21/2023 8:33 PM * Full Code Date Activated Date Inactivated Comments 04/23/2023 6:21 PM 04/27/2023 11:58 AM Care Teams Steam Shovel Oiler Relationship Specialty Start Date End Date Naveed Fernandez MD [address] [place] [address] PCP - General Internal Medicine 04/21/23 Flori Mcdonald Nurse Practitioner Pulmonology 04/06/23
--- OUTSIDE RECORDS SUMMARY | 2024-07-14 13:57 | XMS_ITS | Encounter Summary ---
Author Organization [facility] Healthcare Address [address] [place] [address] Care Team Providers Care Cell Stripper Final Name Role Phone Chago Randolph MD Unavailable Christelle Huertas DO Primary Care Provider [phone] Zachary Hurley MD Unavailable [phone] Betzaida Subramanian NP Unavailable [phone] Naveed Fernandez MD Primary Care Provider [phone] Yony Barker MD Unavailable [phone] Osvaldo Feldman MD Unavailable Aminah Cheung OD Unavailable Jay Marc MD Unavailable Flori Sotelo Unavailable [phone] Kostas Lr MD Unavailable Jay Marc MD Unavailable [phone] Reason for Visit * Reason Onset Date Comments Scheduling Appointments 08/04/2020 Confirmi ng mammogram appt- no answer Encounter Details Date Type Department Care Team (Late st Contact Info) Description 08/04/2020 Telephone [facility] [address] [place] [id number] Emma Blank RT Scheduling Appointments (Confirming mammogram appt- no answer ) Social History Tobacco Use Types Packs/Day Years [...] file 01/30/2020 How often do you attend muslim or mormon serv ices? Never 01/30/2020 Do you belong to any clubs o r organizations such as muslim groups, unions, fraternal or athletic groups, or [...] points, staff should administer the PHQ-9) 0 07/08/2020 Hunger Vital Sign Answer Date Recorded Within [...] on file Legal Sex Female 1:21 PM INSULATION PACKER Gender Identity Female 05/05/2022 8:09 AM INSULATION PACKER Sexual Orientation Straight 11/04/2018 1: 20 PM CDT Occupation Industry Job Start Date Job End Date disabled Not on file Not on file Not on file documented as of this encounter Plan of Treatment Not on file documented as of this encounter Visit Diagnoses Not on filedocumented in this encounter Additional Health Concerns Infection Onset Date Last Indicated Resolved Time COVID: Suspected 11/05/2020 11/05/2020 11/05/2020 9:59 AM CDT COVID: Suspected 11/02/2021 11/02/2021 11/02/2021 3:17 PM CDT documented as of this encounter Care Teams Cell Stripper Final Relationship Specialty Start Date End Date Christelle HuertasDO [address] [facility] [address] [place] [address] PCP - General Family Medicine 01/21/19 09/11/21 Naveed Fernandez MD [address] [facility] [address] [place] [address] PCP - General Internal Medicine 10/14/21 [place] [address] [facility] [address] [place] [address] Consulting Physician Endocrinology Diabetes & Metabolism 01/21/19 [place] [address] [facility] [address] [place] [address] Referring Physician Psychiatry 01/21/19 Betzaida Subramanian NP [address] [facility] [address] JESÚS Hu [facility] [address] [place] [address] Nurse Practitioner Obstetrics and Gynecology 01/04/21 04/20/24 Yony Barker MD [address] [facility] [address] [place] [address] Referring Physician Pain Management 06/16/22 10/25/22 [place] [address] [place] [address] Consulting Physician Pain Management 09/25/22 Aminah Cheung OD [address] [place] [address] Consulting Physician Optometry 01/18/23 Jay Marc MD [address] [place] [address] Surgeon Orthopedic Surgery 04/20/23 04/20/24 Flori Sotelo PA [address] [place] [address] [id number] Physician Control Technician Pulmonary Disease 01/26/24 Kostas Lr MD [address] [place], [place] [address] Consulting Physician Cardiology 02/22/24 Jay Marc MD [address] [place] [address] Surgeon Orthopedic Surgery 04/21/24 documented as of this encounter
--- OUTSIDE RECORDS SUMMARY | 2024-07-14 13:57 | XMS_ITS | Clinical Summary ---
Author Organization [facility] Address [address] [place] [address] Care Team Providers Care Manager Room Name Role Phone Naveed Fernandez MD Primary Care Provider [phone] Source Comments [facility],non-owned Affiliates and Associated Physician Practices is amultiple site organization consisting of ambulatory clinics and hospital sitesin [place], [place], [place] and [place]. This disclosure is being madepursuant to the Care Everywhere program and may not contain all information available regarding this patient. Last updated [facility] Allergies Active Allergy Reactions Criticality Noted Date Comments Lucama Other Low 01/31/2015 tremors severe shakes Powdered Gloves [Other] Rash Medium 10/18/2020 Medications * This document contains information received from the source organization and may not represent a complete record from that organization. * Be aware that medications may not be up to date on this document. Alwaysverify current medications with the patient. liothyronine (CYTOMEL) 5 MCG tablet Take 1 (one) tablet by mouth once daily 07/22/2020 Active EUTHYROX 137 MCG tablet Take 1 (one) tablet by mouth once daily 09/06/2020 Active QUEtiapine (SEROQUEL) 100 MG tablet Take 2 (two) tablets by mouth at bedtime 09/29/2020 Active propranolol (INDERAL) 80 MG tablet Take 1 (one) tablet by mouth 2 times daily 07/20/2020 Active famciclovir (FAMVIR) 250 MG tablet Take 1 (one) tablet by mouth 2 times daily 07/20/2020 Active vitamin D, ergocalciferol, (DRISDOL) 1.25 MG (69017 UT) capsule Take 1 (one) capsule by mouth every 7 days 07/23/2020 Active desvenlafaxine succinate ER 24hr (PRISTIQ) 100 MG tablet Take 1 (one) tablet by mouth once daily Active buPROPion XL 24hr (WELLBUTRIN-XL) 150 MG tablet Take 2 (two) tablets by mouth once daily Active Calcium Citrate-Vitamin D (CALCIUM + D PO) Take 1 tablet by mouth 2 times daily Active oxyCODONE-aceta minophen (Percocet) 10-325 MG tablet Take 1 (one) tablet by mouth every 6 hours as needed for Pain Active gabapentin (Neurontin) 600 MG tablet Take 1 (one) tablet by mouth at bedtime Active losartan (Cozaar) 50 MG tablet Take 1 (one) tablet by mouth 2 times daily Active atorvastatin (Lipitor) 40 MG tablet Take 1 (one) tablet by mouth at bedtime Active tiZANidine (Zanaflex) 4 MG tablet Take 1 (one) tablet by mouth at bedtime Active nortriptyline (Pamelor) 10 MG capsule Take 1 (one) capsule by mouth at bedtime Active diazePAM (Valium) 10 MG tablet Take 1 (one) tablet by mouth at bedtime Active Active Problems Problem Noted Date Diagnosed Date Hyperhidrosis of face 10/18/2020 Primary focal hyperhidrosis of soles 10/18/2020 Assessment & Plan (10/18/2020 4:46 PM CDT): -Patient able to deal with sole sweating, does not desire specific treatment today -Will start oxybutynin 2.5 mg BID for 3 weeks, then 5 qam and 2.5 q pm for 3 weeks then 5 BID for 3 weeks until follow up Primary focal hyperhidrosis of palms 10/18/2020 Assessment & Plan (10/18/2020 4:47 PM CDT): -Patient is able to deal with sweating of palms, does not desire specific treatment today -Will start oxybutynin 2.5 mg BID for 3 weeks, then 5 qam and 2.5 q pm for 3 weeks then 5 BID for 3 weeks until follow up Primary focal hyperhidrosis 10/18/2020 Assessment & Plan (10/18/2020 4:45 PM CDT): Hyperhidrosis of scalp and chest -Patient desires to treat scalp and face most strongly -Will apply dry-jimi to these areas -Will start oxybutynin 2.5 mg BID for 3 weeks, then 5 qam and 2.5 q pm for 3 weeks then 5 BID for 3 weeks until follow up Seborrheic keratosis 10/18/2020 Assessment & Plan (10/18/2020 4:43 PM CDT): - Benign, reassurance Complicated headache syndromes 10/18/2020 Hand numbness 10/18/2020 Acute pain of left knee 08/17/2020 Overview (10/18/2020): Last Assessment & Plan: Prescriptions sent. Cznbi-jh-[id number] exercises encouraged once pain level decreases. Return to clinic if no resolution of pain. Hyperhidrosis 08/06/2020 Overview (10/18/2020): Last Assessment & Plan: Recent labs were all within normal range with exception of her TSH which was slightly elevated. She was seen by the nurse practitioner at that time who increased her levothyroxine to 150 mcg daily. Patient does have a transportation driver, advised patient to follow-up with transportation driver. She is taking a medication, Cytomel, which has a common side effect of diaphoresis. Encouraged patient to speak to her transportation driver about possibly discontinuing this medication. Memory loss 01/19/2020 Hyperplastic polyp of sigmoid colon 01/01/2020 Overview (10/18/2020): Colonoscopy 04/23/2017 [facility] everywhere Chronic migraine without aur a without status migrainosus, not intractable 12/26/2019 Confusion 12/19/2019 Overview (10/18/2020): Last Assessment & Plan: Patient currently confused. She is having a hard time remembering what happened and when it happened leading her to come to the ED. Given constellation of symptoms of confusion, headache with nausea and abnormal findings on chest exam, will screen patient for COVID -19. Will also obtain a chest x-ray. Patient denies any shortness of breath or fevers. COVID -19 precautions. Scalp lesion 08/07/2019 Overview (10/18/2020): Last Assessment & Plan: Referred to dermatology for further eval/mgmt. COPD with acute exacerbation 07/03/2019 Overview (10/18/2020): Last Assessment & Plan: Again, I strongly urge she go to her nearest ER, however, the patient would like to try her nebulizer treatments prior to going. Rxs given. Recurrent herpes simplex 06/03/2019 Overview (10/18/2020): Last Assessment & Plan: Clinically improved, continue current meds. Essential (primary) hypertension 01/21/2019 Overview (10/18/2020): Last Assessment & Plan: Within normal range, cont current meds. Fatty liver 01/21/2019 Sacroiliitis 01/21/2019 Spondylosis without myelopat hy or radiculopathy, sacral and sacrococcygeal region 01/21/2019 Pneumonia due to infectious organism 11/29/2018 Vitamin D deficiency 11/06/2018 Overview (10/18/2020): Managed by endocrinology. Last Assessment & Plan: Continue Ergocalciferol, 50,000 international units weekly Cervical radiculopathy 07/17/2018 Prediabetes 10/23/2017 Overview (10/18/2020): Last Assessment & Plan: Importance of diet and exercise was discussed Will start Rybelsus which also can help with weight loss Severe episode of recurrent major depressive disorder, without psychotic features 08/30/2017 Overview (10/18/2020): Managed by psychiatry Last Assessment & Plan: Clinically improved, managed by psychiatrist. Influenza vaccination declined by patient 2017 Major depressive disorder, r ecurrent episode, moderate with anxious distress 03/05/2017 Congenital hypothyroidism without goiter 017 Spinal stenosis in cervical region 11/29/2016 Other disturbances of skin sensation 11/21/2016 Other chronic postprocedural pain 03/15/2016 Lumbago with sciatica, left side 08/02/2015 Cervical post-laminectomy syndrome 08/02/2015 COPD (chronic obstructive pulmonary disease) Overview (10/18/2020): Last Assessment & Plan: Continue breathing treatments Lumbosacral spondylolysis 05/06/2015 Overview (10/18/2020): with sciatica, L5S1/ TLIF performed by Dr Marc on 05/05/2015, OR EBL 300 ml Overview: with sciatica, L5S1/ TLIF performed by Dr Marc on 05/05/2015, OR EBL 300 ml SHEN (generalized anxiety disorder) 05/06/2015 Spondylolisthesis of lumbar region 03/31/2015 Cigarette nicotine dependence without complicati on 03/26/2015 Overview (10/18/2020): Last Assessment & Plan: Advised patient to quit smoking. Tobacco dependence 03/26/2015 Severe obesity 03/02/2015 Overview (10/18/2020): Body mass index is 37.76 kg/(m^2). Last Assessment & Plan: HPI: Condition is stable A&P: Healthy, low carbohydrate lifestyle and exercise for 150min/week recommended Substitutions: Recommend tracking everything you put in your mouth on an sophie like Notch or Ko[employer] carries a zero net carb bread If you are looking for whole potatoes, like to use in soup or new potato shape/flavor, radishes are a great replacement If you are looking for mashed potatoes, riced cauliflower in the frozen bag section are a great replacement For pasta, try using zucchini noodles, lay them out on a cookie sheet and pat dry with a tea towel to try to remove as much moisture as possible. Heat your pasta sauce on the stove and put the noodles in for 30-45 seconds. If you leave them in much longer they will become mushy Mona and/or coconut flour instead of regular flour For pizza dough, try fathead pizza dough recipe online. To get a crispy crust, bake on one side for 8-12 min, then flip over and bake on the other side for 8-12 min, then put toppings on and bake until the cheese on top of pizza melts chaffles recipe online For ice cream, try the brand Enlightened To replace coffee creamer and make it low carb, use heavy creamer with sugar free Torani sweetener For chips, try Whisps or pork rinds For yogurt, try Two Good comoran yogurt Use Pinterdarren for recipe ideas. Type in low carb... Last Assessment & Plan: HPI: Condition is not at/near goal of BMI <25 A&P: Healthy, low carbohydrate lifestyle and exercise for 150min/week recommended Substitutions: Recommend tracking everything you put in your mouth on an sophie like myfitnesspal or 1stphorm [employer] carries a zero net carb bread If you are looking for whole potatoes, like to use in soup or new potato shape/flavor, radishes are a great replacement If you are looking for mashed potatoes, riced cauliflower in the frozen bag section are a great replacement For pasta, try using zucchini noodles, lay them out on a cookie sheet and pat dry with a tea towel to try to remove as much moisture as possible. Heat your pasta sauce on the stove and put the noodles in for 30-45 seconds. If you leave them in much longer they will become mushy Mona and/or coconut flour instead of regular flour For pizza dough, try fathead pizza dough recipe online. To get a crispy crust, bake on one side for 8-12 min, then flip over and bake on the other side for 8-12 min, then put toppings on and bake until the cheese on top of pizza melts chaffles recipe online For ice cream, try the brand Enlightened To replace coffee creamer and make it low carb, use heavy creamer with sugar free Torani sweetener For chips, try Whisps or pork rinds For yogurt, try Two Good comoran yogurt Use Pinterest for recipe ideas. Type in low carb... Depression 03/02/2015 Facet arthropathy, lumbosacral 02/24/2015 Unknown and unspecified causes of morbidity 04/20 Overview (10/18/2020): Herniated disk Acquired hypothyroidism 05/08/2014 Overview (10/18/2020): Managed by endocrinology Last Assessment & Plan: Continue Levothyroxine and Liothyronine, combination Importance of f taking the medication on an empty stomach, was explained again to the patient Lymphocytic thyroiditis 08/02/2013 Overview (10/18/2020): CHR LYMPHOCYT THYROIDIT Poliomyelitis osteopathy of multiple sites 08/02 Overview (10/18/2020): POLIO OSTEOPATHY-MULT Depression with anxiety 08/11/2009 Tobacco use disorder 08/11/2009 Anxiety 08/11/2009 Overview (10/18/2020): Last Assessment & Plan: Stable. Cont. Current meds. Managed by psychiatry. Immunizations Immunization Administration Dates Next Due INFLUENZA VACCINE, QUADR. (F LUZONE; FLULAVAL; FLUARIX; AFLURIA QUADRIVALENT; 6MO+), 0.5 ML (IIV4) 12/21/2019,11/29/2018,01/11/2018 PNEUMOCOCCAL PPSV23 05/31/2014,03/19/2010 PNEUMOCOCCAL PPV VACCINE 04/18/2013 TD (ADULT), 5 LF TETANUS TOX OID, ADSORBED, PF 03/19/2013 TDAP (7yrs+) 10/13/2013 Td (Adult), 2 Lf Tetanus Tox oid, Adsorbed, Pf 10/13/2013,03/19/2013 Family History Medical History Relation Name Comments Depression Maternal Aunt Bipolar Disorder Maternal Uncle Relation Name Status Comments Maternal Aunt Maternal Uncle Social History Tobacco Use Types Packs/Day Years Used Date Smoking Tobacco: Every Day Cigarettes 0.5 40 Smokeless Tobacco: Never Tobacco Cessation:Ready to Q uit: Not Asked; Counseling Given: Not Answered Alcohol Use Standard Drinks/Week Comments Yes 0 (1 standard drink = 0.6 oz pur e alcohol) occ Comments No Sex and Gender Information Value Date Recorded Sex Assigned at Not on file Legal Sex Female 5:53 AM GRAPHIC ART SALES REPRESENTATIVE Gender Identity Not on file Sexual Orientation Not on file Last Filed Vital Signs Vital Sign Reading Time Taken Comments Blood Pressure 129/80 01/24/2023 2:24 PM GRAPHIC ART SALES REPRESENTATIVE Pulse 81 01/24/2023 2:24 PM GRAPHIC ART SALES REPRESENTATIVE Temperature 36.7 C (98.1 F) 08/01/2012 5:43 AM CDT Respiratory Rate 16 01/24/2023 2:24 PM GRAPHIC ART SALES REPRESENTATIVE Oxygen Saturation 93% 01/24/2023 2:24 PM GRAPHIC ART SALES REPRESENTATIVE Inhaled Oxygen Concentration - - Weight 117.9 kg (260 lb) 10/18/2020 2:14 PM CDT Height 175.3 cm (5' 9 ) 10/18/2020 2:14 PM CDT Body Mass Index 38.4 10/18/2020 2:14 PM CDT Plan of Treatment Health Maintenance Due Date Last Done Comments COLOGUARD (AGES 45-75) - COLON CA SCREENING 1960 COLON MONITORING 1960 COLONOSCOPY - COLON CA SCREENING 1960 CT COLONOGRAPHY - COLON CA SCREENING 1960 Colorectal Cancer Screening 1960 FIT - COLON CA SCREENING 1960 FLEX SIG - COLON CA SCREENING 1960 PAP SMEAR 1960 HIV SCREENING 1975 HEPATITIS C SCREENING 04/15/1978 LUNG CANCER SCREENING 2010 ZOSTER VACCINE (1 of 2) 2010 PNEUMOCOCCAL VACCINE 50+ (2 of 2 - PCV) 06/01/2015 05/31/2014, 04/18/2013, 03/19/2010 Respiratory Syncytial Virus (RSV) Vaccine Pt: or over 60 yrs (1 - Risk 60-74 years 1-dose series) 2020 SCREENING FOR DIABETES 10/18/2020 07/30/2012 MAMMOGRAM 08/05/2022 08/05/2020 DTAP/TDAP/TD VACCINES (5 - Td or Tdap) 10/14/2023 10/13/2013, 10/13/2013, 03/19/2013, Additional history exists COVID-19 VACCINE ( season) 2023 06/06/2020, 05/14/2020 DEPRESSION SCREENING 03/19/2024 MEDICARE AWV CALENDAR YEAR 2024 INFLUENZA VACCINE (Season Ended) 2024 05/07/2022, 01/04/2021, 12/21/2019, Additional history exists HEPATITIS B VACCINE Aged Out No longe r eligible based on patient's age to complete this topic HIB VACCINE Aged Out No longer eligi ble based on patient's age to complete this topic HPV VACCINE Aged Out No longer eligi ble based on patient's age to complete this topic MENINGOCOCCAL (Group B) VACCINE SHARED DECISION-MAKING Aged Out No longer eligible based on patient's age to complete this topic MENINGOCOCCAL GROUPS A/C/Y/W VACCINE Aged Out No longer eligible based on patient's age to complete this topic Procedures Procedure Name Priority Date/Time Associated Diagnosis Comments COMPREHENSIVE METABOLIC PANEL STAT 07/30/2012 1:05 PM CDT from Last 3 Months or Most Recently Relevant to Health Maintenance Results * COMPREHENSIVE METABOLIC PANEL (07/30/2012 1:05 PM CDT) Glucose 87 74 - 106 mg/dL 07/30/2012 1:37 PM CDT [facility] Sodium 137 136 - 145 mmol/L 07/30/2012 1:37 PM CDT [facility] Potassium 4.4 3.5 - 5.1 mmol/L 07/30/2012 1:37 PM CDT [facility] Chloride 102 98 - 107 mmol/L 07/30/2012 1:37 PM CDT [facility] CO2 26 22 - 31 mmol/L 07/30/2012 1:37 PM CDT [facility] Calcium 9.5 8.5 - 10.1 mg/dL 07/30/2012 1:37 PM CDT [facility] Anion Gap 9 5 - 15 mmol/L 07/30/2012 1:37 PM CDT [facility] BUN 12 7 - 21 mg/dL 07/30/2012 1:37 PM CDT [facility] Creatinine 0.59 0.50 - 1.30 mg/dL 07/30/2012 1:37 PM CDT [facility] eGFR by MDRD >60 >60 ml/min/1.7 3m2 07/30/2012 1:37 PM CDT [facility] eGFR by MDRD >60 >60 ml/min/1.7 3m2 07/30/2012 1:37 PM CDT [facility] Alkaline Phosphatase 119 38 - 126 U/L 07/30/2012 1:37 PM CDT [facility] ALT 53 12 - 78 U/L 07/30/2012 1:37 PM CDT [facility] AST 16 5 - 40 U/L 07/30/2012 1:37 PM CDT [facility] Protein Total 7.8 6.4 - 8.2 gm/dL 07/30/2012 1:37 PM CDT [facility] Albumin 4.4 3.4 - 5.0 gm/dL 07/30/2012 1:37 PM CDT [facility] Bilirubin Total 0.4 0.2 - 1.0 mg/dL 07/30/2012 1:37 PM CDT [facility] Blood specimen (specimen) BLOOD SPECIMEN / Unknown 07/30/2012 1:05 PM CDT 07/30/2012 1:15 PM CDT Dorita Gilliam PA-C LAB - CHEMISTRY ORDERABLES Fin al Result [facility] [address] [place] [address] from Last 3 Months or Most Recently Relevant to Health Maintenance Insurance [facility] AETNA MEDICARE ADV AETNA ANTHEM ANTHEM Advance Directives * FULL RESUSCITATION (Latest Code Status on File) Date Activated Date Inactivated Comments 07/30/2012 6:15 PM 08/01/2012 12:40 PM Care Teams Manager Room Relationship Specialty Start Date End Date Naveed Fernandez MD [address] [place] [address] PCP - General Infectious Disease 12/20/22
--- OUTSIDE RECORDS SUMMARY | 2024-07-14 13:58 | XMS_ITS | Encounter Summary ---
Author Organization [facility] Address [address] [place] [address] Care Team Providers Care Cable Ferry Operator Name Role Phone Naveed Fernandez MD Primary Care Provider [phone] Encounter Details Date Type Department Care Team (Latest Contact Info) Description 02/19/2004 Outpatient Historical [facility] [place] [address] [place] [address] INTRINS URETHRL SPHINC DEFICIENCY (Primary Dx) Social History Tobacco Use Types Packs/Day Years Used Date Smoking Tobacco: Never Assessed Comments Unknown Sex and Gender Information Value Date Recorded Sex Assigned at Female 01/14/2024 8:12 PM CDT Legal Sex Female 4:52 AM STOCK GRADER Gender Identity Female 01/14/2024 8:12 PM CDT Sexual Orientation Choose not to disclose 2023 8:12 PM CDT documented as of this encounter Plan of Treatment Upcoming Encounters Date Type Department Care Team (Late st Contact Info) Description 07/22/2024 10:30 AM CDT Appointment [address] [facility] [address] [place] [address] Jay Marc MD [address] [facility] [address] [place] [address] documented as of this encounter Visit Diagnoses Diagnosis Intrinsic (urethral) sphincter deficiency (ISD)- Primary documented in this encounter Additional Health Concerns Infection Onset Date Last Indicated Resolved Time R/O Respiratory 02/10/2024 02/10/2024 02/10/2024 8 :05 PM STOCK GRADER R/O Respiratory 03/31/2024 03/31/2024 03/31/2024 5 :16 PM STOCK GRADER COVID-19 03/31/2024 03/31/2024 04/20/2024 1:16 AM STOCK GRADER R/O C. diff 04/01/2024 04/01/2024 04/02/2024 3:00 AM STOCK GRADER documented as of this encounter Care Teams Cable Ferry Operator Relationship Specialty Start Date End Date Naveed Fernandez MD [address] [place] [address] PCP - General Internal Medicine 04/21/23 Flori Mcdonald Nurse Practitioner Pulmonology 04/06/23 documented as of this encounter
--- OUTSIDE RECORDS SUMMARY | 2024-07-14 13:58 | XMS_ITS | Encounter Summary ---
Author Organization [facility] Healthcare Address [facility] [place] [address] Care Team Providers Care Emt I/99 Name Role Phone Chago Randolph MD Unavailable Zachary Hurley MD Unavailable Naeved Fernandez MD Primary Care Provider [phone] Osvaldo Feldman MD Unavailable [phone] Aminah Cheung OD Unavailable [phone] Flori Sotelo Unavailable Kostas Lr MD Unavailable Jay Marc MD Unavailable [phone] Encounter Details Date Type Department Care Team (Late st Contact Info) Description 06/24/2024 Results Follow-Up [facility] [address] [place] [address] Naveed Fernandez MD [address] [place] [address] Social History Tobacco Use Types Packs/Day Years Used Date Smoking Tobacco: Every Day Cigarettes 1 47.3 Started: 03/19/1977 Smokeless Tobacco: [...] file 01/30/2020 How often do you attend adventist or quaker serv ices? Never 01/30/2020 Do you belong to any clubs o r organizations such as adventist groups, unions, fraternal or athletic groups, or [...] points, staff should administer the PHQ-9) 0 01/25/2024 Hunger Vital Sign Answer Date Recorded Within [...] things needed for daily living? No 12/08/2019 Personal Safety Answer Date Recorded Have you ever been in or are you currently in a harmful physical or emotional relationship or is someone making you feel afraid or unsafe? Denies 06/27/2024 Comments No Sex and Gender Information Value Date Recorded Sex Assigned at Not on file Legal Sex Female 1:21 PM MAGAZINE DESIGNER Gender Identity Female 05/05/2022 8:09 AM MAGAZINE DESIGNER Sexual Orientation Straight 11/04/2018 1: 20 PM CDT Occupation Industry Job Start Date Job End Date disabled Not on file Not on file Not on file documented as of this encounter Plan of Treatment Not on file documented as of this encounter Visit Diagnoses Not on filedocumented in this encounter Care Teams Emt I/99 Relationship Specialty Start Date End Date Naveed Fernandez MD [address] [facility] [address] [place] [address] PCP - General Internal Medicine 10/14/21 [place] [address] [facility] [address] [place] [address] Consulting Physician Endocrinology Diabetes & Metabolism 01/21/19 [place] [address] [facility] [address] [place] [address] Referring Physician Psychiatry 01/21/19 [place] [address] [facility] [address] [place] [address] Consulting Physician Pain Management 09/25/22 Aminah Cheung OD [address] [place] [address] Consulting Physician Optometry 01/18/23 Flori Sotelo PA [address] [place] [address] Physician Vacuum Drum Drier Operator Pulmonary Disease 01/26/24 Kostas Lr MD [address] [place] [address] Consulting Physician Cardiology 02/22/24 Jay Marc MD [address] [facility] [address] [place] [address] Surgeon Orthopedic Surgery 04/21/24 documented as of this encounter
--- OUTSIDE RECORDS SUMMARY | 2024-07-14 13:58 | XMS_ITS | Encounter Summary ---
Author Organization [facility] Address [address] [place] [address] Care Team Providers Care Enameler Name Role Phone Naveed Fernandez MD Primary Care Provider [phone] Encounter Details Date Type Department Care Team (Late st Contact Info) Description 09/16/2003 Inpatient Historical [facility] PATIENT IN A BED Franco Caraballo MD [address] [place] [address] NAUSEA WITH VOMITING (Primary Dx) Social History Tobacco Use Types Packs/Day Years Used Date Smoking Tobacco: Never Assessed Comments Unknown Sex and Gender Information Value Date Recorded Sex Assigned at Female 01/14/2024 8:12 PM CDT Legal Sex Female 4:52 AM JIG INSPECTOR Gender Identity Female 01/14/2024 8:12 PM CDT Sexual Orientation Choose not to disclose 2023 8:12 PM CDT documented as of this encounter Plan of Treatment Upcoming Encounters Date Type Department Care Team (Late st Contact Info) Description 07/22/2024 10:30 AM CDT Appointment [facility] [address] [facility] [address] [place] [address] Jay Marc MD [address] [place] [address] documented as of this encounter Visit Diagnoses Diagnosis Nausea with vomiting- Primary documented in this encounter Additional Health Concerns Infection Onset Date Last Indicated Resolved Time R/O Respiratory 02/10/2024 02/10/2024 02/10/2024 8 :05 PM JIG INSPECTOR R/O Respiratory 03/31/2024 03/31/2024 03/31/2024 5 :16 PM JIG INSPECTOR COVID-19 03/31/2024 03/31/2024 04/20/2024 1:16 AM JIG INSPECTOR R/O C. diff 04/01/2024 04/01/2024 04/02/2024 3:00 AM JIG INSPECTOR documented as of this encounter Care Teams Enameler Relationship Specialty Start Date End Date Naveed Fernandez MD [address] [place] [address] PCP - General Internal Medicine 04/21/23 Flori Mcdonald Nurse Practitioner Pulmonology 04/06/23 documented as of this encounter
--- OUTSIDE RECORDS SUMMARY | 2024-07-14 13:58 | XMS_ITS | Encounter Summary ---
Author Organization [facility] Healthcare Address [facility] [place] [address] Care Team Providers Care Diesel Machinist Name Role Phone Chago Randolph MD Unavailable Zachary Hurley MD Unavailable Naveed Fernandez MD Primary Care Provider Osvaldo Feldman MD Unavailable Aminah Cheung OD Unavailable Flori Sotelo Unavailable Kostas Lr MD Unavailable Jay Marc MD Unavailable Encounter Details Date Type Department Care Team (Late st Contact Info) Description 07/14/2024 Telephone [facility] [address] [place] [id number] Naveed Fernandez MD [address] [place] [address] Social History Tobacco Use Types [...] file 01/30/2020 How often do you attend alevism or anabaptist serv ices? 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 Gender Identity Female 05/05/2022 8:09 AM CANOE INSPECTOR Sexual Orientation Straight 11/04/2018 1: 20 PM CDT Occupation Industry Job Start Date Job End Date disabled Not on file Not on file Not on file documented as of this encounter Miscellaneous Notes * Telephone Encounter - Abby Jarrett, RN - 07/14/2024 10:49 AM CDT Spoke with Dr Fernandez Verbal order Please get a urine if it is infected Dr Fernandez will sent in the antibiotic Pt called and informed of the message We will call her back with the results * Telephone Encounter - Abby Jarrett RN - 07/14/2024 9:55 AM CDT Called and spoke with the pt She states for the past few days She has been passing blood No other symptoms Pt does not want a appointment Pt would like do a ua and get a antibiotic Pt is allergic to lithium and gloves * Telephone Encounter - Sophia Gonzalez - 07/14/2024 9:44 AM CDT Please see previous message. Pt called back and states she is now having urinary frequency and a blood clot the size of a nickel. * Telephone Encounter - Spohia Gonzalez - 07/14/2024 9:14 AM CDT Pt has a funny feeling whenever she urinates and has Blood in her urine . Pt has had symptoms for two days now and wants to know if would order a UA at [facility]. Please send order to [facility] [phone] patient Dejon ferrer documented in this encounter Plan of Treatment Scheduled Orders Name Type Priority Associated Diagnoses Orde r Schedule Urinalysis reflex to microscopic and culture Urine, clean voided Microbiology Routine Gross hematuria Expected: 07/14/2024, Expires: 07/14/2025 documented as of this encounter Visit Diagnoses Diagnosis Gross hematuria- Primary documented in this encounter Care Teams Diesel Machinist Relationship Specialty Start Date End Date Naveed Fernandez MD [address] [place] [address] PCP - General Internal Medicine 10/14/21 [place] [address] [place] [address] Consulting Physician Endocrinology Diabetes & Metabolism 01/21/19 [place] [address] [place] [address] Referring Physician Psychiatry 01/21/19 [place] [address] [facility] [address] [place] [address] Consulting Physician Pain Management 09/25/22 Aminah Cheung OD [address] [address] Consulting Physician Optometry 01/18/23 Flori Sotelo PA [address] [place] [address] Physician Scientific Programmer Pulmonary Disease 01/26/24 Kostas Lr MD [address] [place] [address] Consulting Physician Cardiology 02/22/24 Jay Marc MD [address] [place] [id number] Surgeon Orthopedic Surgery 04/21/24 documented as of this encounter
--- OUTSIDE RECORDS SUMMARY | 2024-07-14 13:58 | XMS_ITS | Encounter Summary ---
Author Organization [facility] Address [address] [place] [address] Care Team Providers Care Garment Cutter Name Role Phone Naveed Fernandez MD Primary Care Provider [phone] Encounter Details Date Type Department Care Team (Late st Contact Info) Description 04/17/2002 Inpatient Historical HIS PATIENT IN A BED Clint Vazquez MD [address] [place] [address] MANIC-DEPRESSIVE NEC (CMS/HCC) (Primary Dx) Social History Tobacco Use Types Packs/Day Years Used Date Smoking Tobacco: Never Assessed Comments Unknown Sex and Gender Information Value Date Recorded Sex Assigned at Female 01/14/2024 8:12 PM CDT Legal Sex Female 4:52 AM 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 OFFICER Gender Identity Female 01/14/2024 8:12 PM CDT Sexual Orientation Choose not to disclose 2023 8:12 PM CDT documented as of this encounter Plan of Treatment Upcoming Encounters Date Type Department Care Team (Late st Contact Info) Description 07/22/2024 10:30 AM CDT Appointment Stephania Hassan [address] [place] [address] Jay Marc MD [address] [place] [address] documented as of this encounter Visit Diagnoses Diagnosis Other bipolar disorders- Primary documented in this encounter Additional Health Concerns Infection Onset Date Last Indicated Resolved Time R/O Respiratory 02/10/2024 02/10/2024 02/10/2024 8 :05 PM 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 VEHICLE OFFICER R/O Respiratory 03/31/2024 03/31/2024 03/31/2024 5 :16 PM 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 VEHICLE OFFICER COVID-19 03/31/2024 03/31/2024 04/20/2024 1:16 AM 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 VEHICLE OFFICER R/O C. diff 04/01/2024 04/01/2024 04/02/2024 3:00 AM 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 VEHICLE OFFICER documented as of this encounter Care Teams Garment Cutter Relationship Specialty Start Date End Date Naveed Fernandez MD [address] [place] [address] PCP - General Internal Medicine 04/21/23 Flori Mcdonald Nurse Practitioner Pulmonology 04/06/23 documented as of this encounter
--- OUTSIDE RECORDS SUMMARY | 2024-07-14 13:58 | XMS_ITS | Clinical Summary ---
Author Organization [facility] Address [address] [place] [address] Care Team Providers Care Quotation Clerk Name Role Phone Chago Randolph MD Unavailable Zachary Hurley MD Unavailable Stephanie Cole MD Primary Care Provider Osvaldo Feldman MD Unavailable Aminah Cheung OD Unavailable [phone] Flori Sotelo Unavailable Kostas Lr MD Unavailable Jay Marc MD Unavailable Allergies Active Allergy Reactions Criticality Noted Date Comments Blessing Other (See comments) Low severe shakes Other Hives Medium 11/18/2017 Powdered gloves Medications calcium carb and citrate-vitD3 600 mg-12.5 mcg (500 unit) tablet extended release Take by mouth Active blood-glucose meter miscIndications:T ype 2 diabetes mellitus with hyperglycemia, without long-term current use of insulin (HCC) Use to check blood glucose once daily. 1 each 04/10/19 24 Active albuterol HFA (Ventolin HFA) 90 mcg/actuation inhalerIndication s:Chronic Obstructive Pulmonary Disease Inhale 2 puffs every 4 (four) hours as needed for wheezing or shortness of breath 10/10/19 24 2024 Active budesonide-glycop yr-formoterol (Breztri Aerosphere) 160-9-4.8 mcg/actuation inhaler Inhale 2 puffs 2 (two) times a day Active lancets (OneTouch Delica Plus Lancet) 30 gauge miscIndications:T ype 2 diabetes mellitus with hyperglycemia, without long-term current use of insulin ([facility]) USE 1 TO CHECK GLUCOSE ONCE DAILY 100 each 10/31/19 24 Active QUEtiapine (SEROquel) 300 mg tablet Take 2 tablets (600 mg total) by mouth nightly Serial dose increases starting 11/27/2023. 01/07/20 24 Active cyclobenzaprine (FLEXERIL) 10 mg tablet Take 1 tablet (10 mg total) by mouth 3 (three) times a day as needed (Fibromyalgi a) 01/14/20 24 Active LORazepam (ATIVAN) 1 mg tablet Take 1 tablet (1 mg total) by mouth 3 (three) times a day as needed for anxiety 11/28/19 24 Active metFORMIN (GLUCOPHAGE) 500 mg tabletIndications :Type 2 diabetes mellitus with hyperglycemia, without long-term current use of insulin ([facility]) TAKE 1 TABLET BY MOUTH TWICE DAILY WITH MEALS 180 tablet 1 01/29/20 24 Active blood glucose diagnostic (glucose blood) stripIndications: Type 2 diabetes mellitus with hyperglycemia, without long-term current use of insulin ([facility]) Use to test blood glucose once daily. 100 each 1 03/25/19 25 2025 Active losartan (COZAAR) 50 mg tabletIndications :HTN (hypertension), benign Take 1 tablet (50 mg total) by mouth 2 (two) times a day 180 tablet 04/21/19 25 Active propranoloL (INDERAL) 60 mg tabletIndications :HTN (hypertension), benign Take 1 tablet (60 mg total) by mouth 2 (two) times a day 180 tablet 04/23/19 25 Active levothyroxine (SYNTHROID) 125 mcg tabletIndications :Congenital hypothyroidism Take 1 tablet by mouth once daily 30 tablet 3 05/12/19 25 Active oxyCODONE-acetami nophen (PERCOCET) 5-325 mg per tablet Take 1 tablet by mouth every 4 (four) hours as needed for pain 05/05/19 25 Active ergocalciferol (VITAMIN D) 50,000 unit capsuleIndication s:Vitamin D deficiency Take 1 capsule (50,000 Units total) by mouth once a week 12 capsule 1 05/24/19 25 Active famciclovir (FAMVIR) 250 mg tabletIndications :Recurrent herpes simplex Take 1 tablet by mouth twice daily 180 tablet 1 05/31/19 25 Active HYDROcodone-aceta minophen (NORCO) 5-325 mg per tablet Take 1 tablet by mouth every 4 (four) hours as needed 06/13/19 25 Active gabapentin (NEURONTIN) 300 mg capsule Take 1 capsule (300 mg total) by mouth 3 (three) times a day 06/24/19 25 Active aspirin 325 mg tablet Take 1 tablet (325 mg total) by mouth daily 06/24/19 25 Active brexpiprazole (Rexulti) 2 mg tablet Take 1 tablet (2 mg total) by mouth daily Active desvenlafaxine ER (PRISTIQ) 100 mg 24 hr tablet Take 1 tablet (100 mg total) by mouth daily 05/07/19 25 Active nitroglycerin (NITROSTAT) 0.[address] 1 tablet (0.4 mg total) under the tongue every 5 (five) minutes as needed for chest pain May repeat dose q 5 min, up to 3 doses total 30 tablet 11 06/25/19 25 2025 Active atorvastatin (LIPITOR) 40 mg tabletIndications :Hyperlipidemia associated with type 2 diabetes mellitus (HCC) Take 1 tablet by mouth once daily 90 tablet 1 07/08/19 25 Active desvenlafaxine ER (PRISTIQ) 100 mg tablet extended release 24 hr Take 1 tablet (100 mg total) by mouth daily 04/27/192024 Discontinued(A lternate therapy) nortriptyline (PAMELOR) 10 mg capsuleIndication s:Cervicalgia Take 1 capsule (10 mg total) by mouth nightly 90 capsule 3 09/23/192024 Discontinued(T herapy completed) liothyronine (CYTOMEL) 5 mcg tabletIndications :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 Take 1 tablet (5 mcg total) by mouth 2 (two) times a day 10/10/19 24 2024 Discontinued(A lternate therapy) gabapentin (NEURONTIN) 300 mg capsule Take 2 capsules (600 mg total) by mouth 3 (three) times a day 270 capsule 1 04/25/19 25 2024 Discontinued atorvastatin (LIPITOR) 40 mg tabletIndications :Hyperlipidemia associated with type 2 diabetes mellitus (HCC) Take 0.5 tablets (20 mg total) by mouth daily 05/21/19 25 2024 Discontinued atorvastatin (LIPITOR) 40 mg tabletIndications :Hyperlipidemia associated with type 2 diabetes mellitus (HCC) Take 1 tablet (40 mg total) by mouth daily 06/24/19 25 2024 Discontinued isosorbide mononitrate ER (IMDUR) 30 mg 24 hr tabletIndications :Other chest pain Take 1 tablet (30 mg total) by mouth daily 30 tablet 1 06/24/19 25 2024 Discontinued(T herapy completed) Active Problems Problem Noted Date Diagnosed Date Other chest pain 05/17/2024 Assessment & Plan (06/23/2024 5:25 PM CDT): New symptom, started about a month ago. She has had six episodes of retrosternal chest pressure, sometimes as severe as 10/10, lasting up to 15 minutes, associated with some shortness of breath but no nausea. There is radiation into the left pectoral area. She denies heartburn or dysphagia. On one occasion this occurred while driving and she went to a gas station to get aspirin which seemed to help. Otherwise she has not tried any medications for these chest pains. They do not seem to be associated with food ingestion or activity level. Exam of the heart and lungs is normal. There is trace pretibial edema. EKG in the office today is normal. We advised the patient to start aspirin 325 mg daily and isosorbide mononitrate 30 mg daily. If she has a recurrence of chest pain that last more than a few minutes, she should go to the emergency room. We will arrange for evaluation and cardiology MIREILLE, likely she will need a heart catheterization given her extensive personal risk factors and strongly positive family history. We consulted cardiology via secure chat, and they indicated they can see the patient tomorrow. Consultation sent to the cardiology office. Furuncle of pubic region 05/08/2024 Overview (05/08/2024): Tend to be recurrent. Recurrent major depressive disorder, in partial remission 04/30/2024 Hospital discharge follow-up 04/21/2024 Assessment & Plan (04/21/2024 8:29 PM INDUSTRIAL ENERGY ENGINEER): See hospital details above, testing and labs reviewed with patient in office today. Med reconciliation completed. Back pain currently controlled with pain meds as Rx by Neurosurgery. Biopsy of spinal mass still pending. Shortness of breaths symptoms are all gone. Elevated liver enzymes were thought to be related to overuse of Tylenol. Right upper quadrant ultrasound negative for acute process just showed fatty liver, no repeat LFTs since discharge-we will repeat CMP today. Pending these results we may or may not restart her atorvastatin. Her white blood cells were also still elevated upon discharge at 17.9, possibly prednisone related. we will repeat CBC as well. We will call with results, advised if liver enzymes were still high there would be additional blood tests and possibly a GI consult. Chronic midline thoracic back pain 12/18/2023 Overview (03/07/2024): Right at bra-line. Had a myelogram that shows a growth of some kind. Assessment & Plan (04/21/2024 8:30 PM INDUSTRIAL ENERGY ENGINEER): Chronic, uncontrolled. See recent hospitalization for thoracic fusion as outlined above. Continue pain medicine and therapy as prescribed by Neurosurgery. Assessment & Plan (03/16/2024 6:36 PM INDUSTRIAL ENERGY ENGINEER): New symptom as of about two months ago, unremitting. She had evaluation in her spine surgeon's office and has either an arachnoid cyst or possibly a herniated disc in the midthoracic spine. Surgery is planned. She has already been cleared by Cardiology. Review of the record indicates recent elevation of WBC when she was at the [facility] ER with a bad headache. She eventually left without being seen due to the long wait. She denies running a fever. Other pertinent recent history includes an episode of pneumonia treated by Pulmonary Medicine at [facility]. Exam today is unremarkable. She will have a follow-up CBC before final approval to have her back surgery. Return here early as needed. Postoperative wound infection 05/17/2023 Overview (07/14/2023): After lower back surgery, polymicrobial, treated with wound drainage and wound VAC with resolution as of 07/12/2023. Hypertension associated with type 2 diabetes rosario litus 02/06/2022 Assessment & Plan (04/21/2024 8:21 PM INDUSTRIAL ENERGY ENGINEER): Chronic, at goal. BP stable in office today on current therapy. No acute findings on exam. BMP from 2 weeks ago unremarkable except for protein and liver enzymes. We will repeat today. Continue losartan and propranolol as prescribed. low salt diet. Assessment & Plan (03/07/2024 4:13 PM INDUSTRIAL ENERGY ENGINEER): Chronic, present for more than two years, currently controlled on losartan 50 mg twice daily and propranolol 20 mg every 12 hours. She denies chest pain or pressure. She has been cleared by Cardiology to have her thoracic spine surgery. Assessment & Plan (01/25/2024 1:45 PM INDUSTRIAL ENERGY ENGINEER): Chronic, present for more than two years, controlled on losartan 50 mg twice daily. Continue same and follow-up in six months. Assessment & Plan (07/12/2023 1:25 PM CDT): Blood pressure is in a good range on current therapy. She denies chest pain or pressure. Continue same. We corrected some medication doses on her list which were erroneous. Assessment & Plan (11/12/2022 3:14 PM CDT): Hypertension is pretty well controlled on current therapy. She denies chest pain or pressure. Labs are stable. Lab Results Component Value Date GLUCOSE 112 10/18/2022 CALCIUM 9.3 10/18/2022 SODIUM 138 10/18/2022 POTASSIUM 4.4 10/18/2022 CO2 28 10/18/2022 CHLORIDE 101 10/18/2022 BUNSER 13 10/18/2022 CREATININE 0.96 10/18/2022 Assessment & Plan (04/26/2022 4:37 PM INDUSTRIAL ENERGY ENGINEER): Blood pressure is in a good range on current therapy consisting of losartan 50 mg daily. She denies chest pain or pressure. Continue same. Assessment & Plan (10/14/2021 3:05 PM CDT): Blood pressure is still somewhat borderline but improved since starting losartan. Continue same, and return in six months. Lab Results Component Value Date GLUCOSE 99 08/16/2021 CALCIUM 9.9 08/16/2021 SODIUM 136 08/16/2021 POTASSIUM 4.8 08/16/2021 CO2 26 08/16/2021 CHLORIDE 98 08/16/2021 BUNSER 13 08/16/2021 CREATININE 0.80 08/16/2021 Assessment & Plan (09/20/2021 3:32 PM CDT): Not well controlled at thist eulalio - will increase losartan to 100 mg (50 BID) and have pt rtc in about 4 weeks. duie to persistent hypertesion and patient having GOLDSTEIN will also get a tte Assessment & Plan (08/16/2021 1:43 PM CDT): Clinically improved, but not at goal. Will start losartan 25 mg and have patient follow up in 4 weeks Generally for blood pressure highest dose we use of propranolol is 160 mg divided into 1 to 4 doses, but patient also states that she forgets her 3rd dose often and only takes it twice a day For now will decrease propranolol to 160 mg (80 mg bid, and start losartan every day, may mario to increase losartan to bid) Assessment & Plan (07/07/2021 2:10 PM CDT): Clinically improved, continue current prescription medications. Assessment & Plan (01/04/2021 6:02 PM CDT): BP at goal of < 140/90. Cont current Rx meds. Assessment & Plan (01/01/2020 4:13 PM CDT): Within normal range, cont current meds. Assessment & Plan (12/19/2019 11:49 PM CDT): Home medication resumed with hold parameters Assessment & Plan (01/21/2019 11:39 AM INDUSTRIAL ENERGY ENGINEER): Clinically improved. Cont current meds. Hyperlipidemia associated with type 2 diabetes alfie gaytan 02/06/2022 Assessment & Plan (06/23/2024 3:20 PM CDT): Chronic, present for a number of years, she resumed full dose atorvastatin 40 mg daily after recovery of liver enzymes to normal. We will see her back as scheduled in about a month. Lab Results Component Value Date ALT 45 05/19/2024 AST 33 05/19/2024 ALKPHOS 124 05/19/2024 BILITOT 0.2 05/19/2024 Assessment & Plan (01/25/2024 1:44 PM INDUSTRIAL ENERGY ENGINEER): Chronic, present for more than two years, status update needed. We ordered labs to be done at her convenience sometime next week. Follow up in six months. Assessment & Plan (07/12/2023 1:25 PM CDT): She is tolerating generic Lipitor. We will monitor with periodic labs. Assessment & Plan (04/12/2023 3:20 PM INDUSTRIAL ENERGY ENGINEER): She takes generic Lipitor, tolerating well. We will monitor labs periodically. Assessment & Plan (10/26/2022 1:55 PM CDT): Lipids are in a favorable range on her current dose of atorvastatin. Continue same. Lab Results Component Value Date CHOL 111 10/18/2022 CHOL 206 (H) 08/16/2021 CHOL 199 06/15/2020 Lab Results Component Value Date HDL 45 10/18/2022 HDL 40 08/16/2021 HDL 43 06/15/2020 Lab Results Component Value Date LDLCALC 46 10/18/2022 LDLCALC 132 (H) 08/16/2021 LDLCALC 125 06/15/2020 Lab Results Component Value Date TRIG 102 10/18/2022 TRIG 168 (H) 08/16/2021 TRIG 155 (H) 06/15/2020 Lab Results Component Value Date ALT 48 (H) 10/18/2022 AST 31 10/18/2022 ALKPHOS 107 10/18/2022 BILITOT 0.3 10/18/2022 Assessment & Plan (04/26/2022 4:36 PM INDUSTRIAL ENERGY ENGINEER): She is on moderate dose generic Lipitor, tolerating well. Continue same. Check fasting labs before her next visit in six months. Assessment & Plan (10/30/2021 4:04 PM CDT): She started on atorvastatin recently. She has had mild elevations of liver enzymes predating this prescription which are probably due to fatty liver. We will monitor labs periodically. Lab Results Component Value Date CHOL 206 (H) 08/16/2021 CHOL 199 06/15/2020 CHOL 185 12/20/2019 Lab Results Component Value Date HDL 40 08/16/2021 HDL 43 06/15/2020 HDL 45 12/20/2019 Lab Results Component Value Date LDLCALC 132 (H) 08/16/2021 LDLCALC 125 06/15/2020 LDLCALC 118 12/20/2019 Lab Results Component Value Date TRIG 168 (H) 08/16/2021 TRIG 155 (H) 06/15/2020 TRIG 110 12/20/2019 Lab Results Component Value Date ALT 95 (H) 08/16/2021 AST 68 (H) 08/16/2021 ALKPHOS 109 08/16/2021 BILITOT 0.4 08/16/2021 Gross hematuria 09/07/2021 Assessment & Plan (07/12/2023 1:24 PM CDT): She reports no further episodes of hematuria or any urinary symptoms of concern at this time. Assessment & Plan (10/14/2021 3:06 PM CDT): About a month ago, she had an episode of gross hematuria. It is not the first time. She went in and had a urine dipstick which showed a few leukocytes, but the culture grew normal bruce. Review of urinalysis going back several years shows other episodes of hematuria which may have been associated with UTI. She is at risk for bladder cancer because of heavy tobacco use for many years. She could also have a kidney tumor or kidney stone. We will start with a stone protocol CT. I would also recommend a urology evaluation with cystoscopy, but she wants to defer until the CT is back. Insomnia secondary to chronic pain 06/29/2021 Primary focal hyperhidrosis of soles 10/18/2020 Overview (01/04/2021): Last Assessment & Plan: -Patient able to [...] weeks until follow up Seborrheic keratosis 10/18/2020 Overview (01/04/2021): Last Assessment & Plan: - Benign, reassurance Urge incontinence 09/16/2020 Assessment & Plan (10/14/2021 3:11 PM CDT): She has had two bladder slings for probable overflow incontinence, but now is experiencing urgency and occasional urge incontinence. We will check bladder volumes and consider medications if appropriate. Moderate obstructive sleep apnea 09/16/2020 Overview (03/22/2022): Had a sleep study years ago. Snores [...] continued 7. Avoid alcohol sedatives and other CLINICAL REHABILITATION COORDINATOR depression that may worsen sleep apnea and disrupt normal sleep architecture CPAP titration read 03/15/2022: Bilevel therapy with inspiratory positive airway pressure of 17 cm and expiratory positive pressure 13 cm was found to be best attempted settings. Assessment & Plan (10/26/2022 1:56 PM CDT): Continue BiPAP. Assessment & Plan (04/26/2022 4:46 PM INDUSTRIAL ENERGY ENGINEER): She is now on BiPAP. The mask probably irritates her face a little bit. She noticed some redness there the other day. There might be a mild residual on exam today, but it is barely noticeable. She will keep her follow ups with sleep medicine. Assessment & Plan (10/30/2021 4:05 PM CDT): She probably has obstructive sleep apnea. She had a sleep study years ago but did not act on it, details are lacking. She snores t erribly. She wakes up feeling unrested. We will order a sleep study. Primary focal hyperhidrosis of palms 08/06/2020 Overview (07/12/2023): Last Assessment & Plan: -Patient is able to deal with sweating of palms, does not desire specific treatment today -Will start oxybutynin 2.5 mg BID for 3 weeks, then 5 qam and 2.5 q pm for 3 weeks then 5 BID for 3 weeks until follow up >>OVERVIEW FOR HYPERHIDROSIS WRITTEN ON 07/12/2023 4:27 AM BY STEPHANIE COLE MD Mostly palms. Assessment & Plan (07/12/2023 4:28 AM CDT): >>ASSESSMENT AND PLAN FOR HYPERHIDROSIS WRITTEN ON 08/06/2020 9:37 AM BY SHANNON KLEIN NP Condition is worsening. Symptoms started worsening in the last year. Pt has not had menses in >10 yrs. This is not a hot flash feeling. She just sweats. She has to change her clothes. It is embarrassing for pt, head sweats a lot. The deodorant she uses clear Dry Idea keeps axilla dry. She does have sweaty palms of hands and soles of feet. We will perform an initial evaluation for possible TB with a chest xray addition, we check a complete blood count (CBC), thyroid-stimulating hormone (TSH), HIV serology, C-reactive protein (CRP), urinalysis, liver function tests Assessment & Plan (07/12/2023 4:28 AM CDT): >>ASSESSMENT AND PLAN FOR HYPERHIDROSIS WRITTEN ON 08/17/2020 2:19 PM BY ALIYA HUERTAS DO Recent labs were all within normal range with exception of her TSH which was slightly elevated. She was seen by the nurse practitioner at that time who increased her levothyroxine to 150 mcg daily. Patient does have a community relations liaison, advised patient to follow-up with community relations liaison. She is taking a medication, Cytomel, which has a common side effect of diaphoresis. Encouraged patient to speak to her community relations liaison about possibly discontinuing this medication. Class 3 severe obesity due t o excess calories with serious comorbidity and body mass index (BMI) of 40.0 to 44.9 in adult 06/10/2020 Assessment & Plan (04/21/2024 8:22 PM INDUSTRIAL ENERGY ENGINEER): Chronic, uncontrolled. Down 9 lb in the last 6 weeks, BMI at 41.5. Exercise is limited due to chronic pain issues, she does not wish to discuss pharmacological treatment at this time. Encouraged continued heart healthy diet and exercise and portion control. Assessment & Plan (01/25/2024 1:41 PM INDUSTRIAL ENERGY ENGINEER): Chronic, present for many years, uncontrolled although there has been a slight decrease in her weight recently. We encouraged continued attention to her diet, and additional weight loss. Assessment & Plan (04/12/2023 3:21 PM INDUSTRIAL ENERGY ENGINEER): She put on quite a bit of weight due to inactivity. 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 We encouraged her efforts. Assessment & Plan (11/12/2022 3:16 PM CDT): We encouraged attention to her diet and significant weight loss. She is limited in activity level due to chronic pain. Assessment & Plan (05/11/2022 10:13 AM INDUSTRIAL ENERGY ENGINEER): She is on Ozempic for diabetes. This should help her lose weight, and she does notice that appetite is not what it used to be. However her weight does continue to climb. Weight loss surgery is probably not a good option because she is still smoking cigarettes which could significantly increase the risk of complications. We recommended continued dietary efforts. Assessment & Plan (10/14/2021 3:08 PM CDT): We encouraged attention to her diet and hopefully significant weight loss. She says some of the medicine she takes for her mood and to help her sleep cause her to gain weight. Assessment & Plan (09/20/2021 3:27 PM CDT): Weight reduction, daily exercise and dietary modifications recommended. Assessment & Plan (08/16/2021 1:24 PM CDT): Weight reduction, daily exercise and dietary modifications recommended. Assessment & Plan (07/30/2021 3:54 PM CDT): Encourage a weight loss program such as WW (Weight Watchers) incorporating dietary changes and aerobic / weight-bearing exercise at least 4-5 times per week, for at least 30-45 minute sessions. Assessment & Plan (07/07/2021 2:10 PM CDT): Weight reduction, daily exercise and dietary modifications recommended. Assessment & Plan (03/23/2021 2:09 PM INDUSTRIAL ENERGY ENGINEER): Weight reduction, daily exercise and dietary modifications recommended when feeling better. Assessment & Plan (03/17/2021 4:13 PM INDUSTRIAL ENERGY ENGINEER): Healthy, low carbohydrate lifestyle and exercise for 150min/week recommended Assessment & Plan (01/04/2021 6:01 PM CDT): Weight reduction, daily exercise and dietary modifications recommended. Assessment & Plan (08/06/2020 1:14 PM CDT): HPI: Condition is not at/near goal of BMI <25 A&P: Healthy, low carbohydrate lifestyle and exercise for 150min/week recommended Substitutions: Recommend tracking everything you put in your mouth on an sophie like [employer] or [employer] carries a zero net carb bread If [...] in much longer they will become mushy [place] and/or coconut flour instead of regular flour [...] pork rinds For yogurt, try [employer] swedish yogurt Use Pinterest for recipe ideas. Type in low carb... Assessment & Plan (06/10/2020 3:28 PM CDT): Healthy, low carbohydrate lifestyle and exercise for 150min/week recommended Hyperplastic polyp of sigmoid colon 01/01/2020 Overview (01/01/2020): Colonoscopy 04/23/2017 [facility] everywhere Chronic migraine without aur a without status migrainosus, not intractable 12/26/2019 Assessment & Plan (01/04/2021 6:01 PM CDT): Stable. Cont. Current prescription medications. Scalp lesion 08/07/2019 Assessment & Plan (07/14/2023 12:55 PM CDT): She has a chronic but possibly enlarging left upper mid parietal skin papule measuring about 1 cm. The surface is dark brown with a possible slight purplish hue and is somewhat lobulated. It looks vascular and fleshy. The nature is uncertain, but she says it has been there for years. Review of the record shows she was referred to Dermatology although she has a poor recollection of the visit. She does recall seeing somebody who froze it with leftover liquid nitrogen after which it c ollapsed. However it has recurred and seems to be enlarging and she would like to see somebody about it again. She will look at her insurance book and give us a call for a referral to the provider of her choice. Assessment & Plan (08/07/2019 2:53 PM CDT): Referred to dermatology for further eval/mgmt. COPD with acute exacerbation 07/03/2019 Assessment & Plan (11/02/2021 4:23 PM CDT): Presents with symptoms consistent with COPD exacerbation. No signs of infection or acute findings on exam. Tested negative for COVID/Flu in office today. Rxd Prednisone burst as directed. Refill albuterol inhaler PRN. Keep follow with sleep medicine at the end of this month. Assessment & Plan (07/03/2019 4:20 PM CDT): Again, I strongly urge she go to her nearest ER, however, the patient would like to try her nebulizer treatments prior to going. Rxs given. Recurrent herpes simplex 06/03/2019 Assessment & Plan (01/04/2021 6:02 PM CDT): No current outbreaks. Cont current prescription medication. Assessment & Plan (01/01/2020 4:14 PM CDT): Clinically improved, continue current meds. Assessment & Plan (12/19/2019 11:48 PM CDT): Patient on famciclovir which will bring in. Metabolic dysfunction-associ ated steatotic liver disease (MASLD) 01/21/2019 Assessment & Plan (10/14/2021 3:08 PM CDT): She has a fatty liver with elevated liver enzymes. Workup for some of the other possible causes of hepatitis was negative, but we will order additional testing to complete the evaluation. We encouraged attention to her diet and hopefully significant weight loss. Vitamin D deficiency 11/06/2018 Overview (01/21/2019): Managed by endocrinology. Assessment & Plan (04/11/2021 2:40 PM INDUSTRIAL ENERGY ENGINEER): Check 25 OH vit D Adjust dose of Ergocalciferol accordingly Assessment & Plan (04/21/2020 4:14 PM INDUSTRIAL ENERGY ENGINEER): Continue Ergocalciferol, 50,000 international units weekly Assessment & Plan (02/05/2019 3:33 PM INDUSTRIAL ENERGY ENGINEER): Check 25 OH vit D Adjust dose of Ergocalciferol accordingly Type 2 diabetes mellitus with hyperglycemia 09/2017 Overview (07/12/2023): >>OVERVIEW FOR PREDIABETES WRITTEN ON 07/12/2023 4:26 AM BY STEPHANIE COLE MD Developed paige diabetes, late 2022-early 2023. Assessment & Plan (03/07/2024 4:15 PM INDUSTRIAL ENERGY ENGINEER): Chronic, present for many years, currently controlled with metformin 500 mg twice daily. The criterion for having surgery was a hemoglobin A1c less than 7.5%, and her recent value was 7.3%. She is working hard on her diet. Assessment & Plan (01/26/2024 3:20 PM INDUSTRIAL ENERGY ENGINEER): Chronic, present for about a year (previously prediabetic for more than five years), uncontrolled on metformin 500 mg twice daily. Hemoglobin A1c is not at goal implying a degree of hyperglycemia. Some of the increase could be due to the stress of recent surgery and pneumonia. We encouraged attention to her diet. We encouraged her to get her diabetic eye exam done, especially since she is experiencing a black spot intermittently in the left visual field which could be a scotoma related to her migraine condition or possibly a problem related to her diabetes. We ordered follow-up labs to be done before her follow-up visit in six months. Assessment & Plan (07/14/2023 12:56 PM CDT): She brought in blood sugar readings which show good control on a relatively low dose of metformin. This is confirmed by a recent HGB A1c. Continue same, and follow- up in six months. Lab Results Component Value Date HGBA1C 6.2 (H) 07/05/2023 Assessment & Plan (07/12/2023 4:27 AM CDT): >>ASSESSMENT AND PLAN FOR PREDIABETES WRITTEN ON 01/21/2019 11:40 AM BY ALIYA HUERTAS, DO Low carbs diet recommended, weight reduction and daily exercise. Assessment & Plan (07/12/2023 4:27 AM CDT): >>ASSESSMENT AND PLAN FOR PREDIABETES WRITTEN ON 01/01/2020 4:14 PM BY ALIYA HUERTAS, DO Low carbs diet recommended. Assessment & Plan (07/12/2023 4:27 AM CDT): >>ASSESSMENT AND PLAN FOR PREDIABETES WRITTEN ON 04/21/2020 4:17 PM BY CHAGO RANDOLPH MD Importance of diet and exercise was discussed Will start Rybelsus which also can help with weight loss Assessment & Plan (07/12/2023 4:27 AM CDT): >>ASSESSMENT AND PLAN FOR PREDIABETES WRITTEN ON 01/04/2021 6:03 PM BY ALIYA HUERTAS, DO Low carbs diet recommended. Labs ordered, will follow. Assessment & Plan (07/12/2023 4:27 AM CDT): >>ASSESSMENT AND PLAN FOR PREDIABETES WRITTEN ON 04/11/2021 2:41 PM BY CHAGO RANDOLPH MD Diet and exercise Retry Micky Assessment & Plan (07/12/2023 4:27 AM CDT): >>ASSESSMENT AND PLAN FOR PREDIABETES WRITTEN ON 10/14/2021 3:10 PM BY STEPHANIE COLE MD Her most recent fasting blood sugar was normal, but she has had elevations in the past, including hemoglobin A1c. We will continue to monitor. We encouraged weight loss. Lab Results Component Value Date HGBA1C 6.1 (H) 08/16/2021 Assessment & Plan (04/24/2023 10:07 AM INDUSTRIAL ENERGY ENGINEER): She progressed from borderline diabetes to paige diabetes, and HbA1c was above 8% when last checked. She realized it was [...] after discussing risks versus benefits and reviewing the history for any acute problems, I do not see any medical contraindication to proceeding. Follow-up here in three months. Assessment & Plan (10/26/2022 1:59 PM CDT): Diabetes is pretty well controlled on diet only. We will see her back in six months. Lab Results Component Value Date HGBA1C 6.8 (H) 10/18/2022 HGBA1C 6.8 07/13/2022 HGBA1C 6.7 02/06/2022 Lab Results Component Value Date LDLCALC 46 10/18/2022 CREATININE 0.96 10/18/2022 Assessment & Plan (07/13/2022 4:08 PM CDT): Chronic, well-controlled but worsening A1c Will try Mounjaro I provided the patient with 4 pens of 2.5 mg weekly I instructed her to call me in a few weeks to see how she is tolerating and to send the prescription is to see if it is covered Assessment & Plan (04/26/2022 4:51 PM INDUSTRIAL ENERGY ENGINEER): She does not check blood sugars at home. She is on Ozempic. She sees Dr. Randolph for follow-up of her endocrine conditions. Lab Results Component Value Date HGBA1C 6.7 02/06/2022 Assessment & Plan (02/06/2022 4:44 PM INDUSTRIAL ENERGY ENGINEER): Hba1c was Lab Results Component Value Date HGBA1C 6.7 02/06/2022 today, indicating adequte DM control Goal Hba1c and blood glucose explained Diet and exercise were advised Adjustment to medications: start Ozempic Pseudarthrosis after fusion or arthrodesis 05/15 Postlaminectomy syndrome 03/08/2017 Congenital hypothyroidism without goiter 017 Other chronic postprocedural pain 03/15/2016 Cervicalgia 08/02/2015 Overview (07/12/2023): >>OVERVIEW FOR CERVICAL POST-LAMINECTOMY SYNDROME WRITTEN ON 04/26/2022 4:45 PM BY STEPHANIE COLE MD We sent in a refill of tizanidine which she takes for chronic pains in her neck associated with muscle spasm. >>OVERVIEW FOR SPINAL STENOSIS IN CERVICAL REGION WRITTEN ON 07/12/2023 4:33 AM BY STEPHANIE COLE MD Chronic. History of surgery. Assessment & Plan (07/12/2023 4:17 AM CDT): >>ASSESSMENT AND PLAN FOR CERVICALGIA WRITTEN ON 07/12/2023 4:16 AM BY STEPHANIE COLE MD >>ASSESSMENT AND PLAN FOR CERVICAL POST-LAMINECTOMY SYNDROME WRITTEN ON 07/07/2021 2:11 PM BY ALIYA HUERTAS DO Patient seen by pain management, she was started on tramadol. Follow-up pain management. Continue meloxicam, tizanidine, and gabapentin. >>ASSESSMENT AND PLAN FOR DEGENERATIVE DISC DISEASE, CERVICAL WRITTEN ON 07/07/2021 2:11 PM BY ALIYA HUERTAS DO Patient seen by pain management, she was started on tramadol. Follow-up pain management. Continue meloxicam, tizanidine, and gabapentin. Assessment & Plan (07/12/2023 4:17 AM CDT): >>ASSESSMENT AND PLAN FOR CERVICALGIA WRITTEN ON 07/12/2023 4:16 AM BY STEPHANIE COLE MD >>ASSESSMENT AND PLAN FOR CERVICAL POST-LAMINECTOMY SYNDROME WRITTEN ON 05/11/2022 10:12 AM BY STEPHANIE COLE MD She needed a refill tizanidine which we sent in. She describes some sharp pains in her right lateral shoulder radiating into the right upper arm. The pains seem to be somewhat positional, especially reaching forward or to the side for something. Exam shows moderately decreased active and passive range of motion in both shoulders, with moderate pain in the AC joint on the right, but not the left. There is no warmth or joint effusion. There is anterior deflection with bilateral arms on abduction. She probably has some osteoarthritis in the bilateral shoulders, also seen on x- ray of the left shoulder a couple of years ago (osteophyte formation of the acromion). Currently, symptoms are most bothersome on the right side. She is right handed. We suggested referral to physical therapy and orthopedics, but she declines. We will monitor clinically. >>ASSESSMENT AND PLAN FOR DEGENERATIVE DISC DISEASE, CERVICAL WRITTEN ON 04/26/2022 4:36 PM BY STEPHANIE COLE MD She might have right-sided cervical radiculopathy symptoms in the form of sharp pains in the right upper arm with certain movements of the arm and shoulder. However I think radiation of pain from the shoulder itself is more likely. Neurological exam of the upper extremities is normal. Assessment & Plan (07/12/2023 4:16 AM CDT): >>ASSESSMENT AND PLAN FOR CERVICALGIA WRITTEN ON 10/14/2021 3:04 PM BY STEPHANIE COLE MD She has chronic neck pain. She takes occasional tramadol, also has tizanidine for use at nighttime as needed. She takes meloxicam most days. >>ASSESSMENT AND PLAN FOR CERVICAL RADICULOPATHY WRITTEN ON 10/14/2021 3:04 PM BY STEPHANIE COLE MD . COPD (chronic obstructive pulmonary disease) Assessment & Plan (01/25/2024 1:44 PM INDUSTRIAL ENERGY ENGINEER): Chronic, present for about 10 years, currently treated with albuterol metered- dose inhaler and lqicuzljfh-yqlynjvbxzjttm-vksuofmpme maintenance inhaler. She also has a nebulizer used as needed. She has a pulmonary nurse practitioner at [facility] who sees her periodically. Continue same. Assessment & Plan (07/12/2023 1:24 PM CDT): She uses an inhaler as needed. She denies cough or shortness of breath. Lungs are clear and oxygen saturation is adequate. Continue same. Assessment & Plan (04/12/2023 3:18 PM INDUSTRIAL ENERGY ENGINEER): Symptoms are controlled with an albuterol inhaler and Symbicort. She managed to quit smoking which is great. We will see her back in three months. Assessment & Plan (04/26/2022 4:34 PM INDUSTRIAL ENERGY ENGINEER): She wheezes occasionally and has an albuterol inhaler which she also uses occasionally Assessment & Plan (10/14/2021 3:04 PM CDT): She has smoked for years. She has an albuterol inhaler for use as needed. She has a somewhat chronic cough and brings up a little phlegm now and then. Lungs are clear and oxygen saturation is normal today. Assessment & Plan (01/04/2021 6:01 PM CDT): Stable. Cont. Current prescription medications. Assessment & Plan (11/20/2019 2:29 AM CDT): Continue breathing treatments Chronic midline low back pain 02/24/2015 Overview (07/12/2023): >>OVERVIEW FOR DISPLACEMENT OF LUMBAR INTERVERTEBRAL DISC WITHOUT MYELOPATHY WRITTEN ON 07/12/2023 4:18 AM BY STEPHANIE COLE MD Details lacking. >>OVERVIEW FOR FACET ARTHROPATHY, LUMBOSACRAL WRITTEN ON 07/12/2023 4:20 AM BY STEPHANIE COLE MD Details lacking. >>OVERVIEW FOR LUMBOSACRAL SPONDYLOLYSIS WRITTEN ON 04/12/2023 6:06 AM BY STEPHANIE COLE MD Overview: with sciatica, L5S1/ TLIF performed by Dr Marc on 05/05/2015, OR EBL 300 ml >>OVERVIEW FOR SACROILIITIS (HCC) WRITTEN ON 04/12/2023 6:06 AM BY STEPHANIE COLE MD Review of imaging dating to 2020 and subsequently does not support this diagnosis. >>OVERVIEW FOR SPONDYLOLISTHESIS OF LUMBAR REGION WRITTEN ON 07/12/2023 4:28 AM BY STEPHANIE COLE MD Chronic >>OVERVIEW FOR SPONDYLOSIS WITHOUT MYELOPATHY OR RADICULOPATHY, SACRAL AND SACROCOCCYGEAL REGION WRITTEN ON 07/12/2023 4:29 AM BY STEPHANIE COLE MD Chronic Assessment & Plan (06/23/2024 3:20 PM CDT): She wants to taper some of her medications starting with gabapentin which she will decrease from 600 mg 3 times a day to 300 mg 3 times a day. Assessment & Plan (01/25/2024 1:40 PM INDUSTRIAL ENERGY ENGINEER): Chronic, present for decades, currently uncontrolled despite taking tramadol as needed. Mostly she relies on acetaminophen or ibuprofen which he gets [id number]-[id number]. She has follow ups with her back surgeon who plans a follow-up MRI, this time of her thoracic spine, to evaluate complaints in this region. On exam today she is pretty mobile and does not seem to be in significant pain. In addition to analgesics, she takes cyclobenzaprine as needed. Assessment & Plan (07/14/2023 12:53 PM CDT): She had a reasonable results from her recent lumbar surgery. She did have a postoperative wound dehiscence with polymicrobial infection which responded well to antibiotics and wound VAC therapy. There is still a small area of scar that is slightly depressed and scaly, but no evidence of persistent infection or drainage. She has a follow-up with her surgeon next week. She reports being able to get up and do things without excessive pain, but probably overdid it at [place] in the pool the other day and had a slight flare of back pain after that. Assessment & Plan (07/12/2023 4:25 AM CDT): >>ASSESSMENT AND PLAN FOR LUMBOSACRAL SPONDYLOLYSIS WRITTEN ON 04/12/2023 6:06 AM BY STEPHANIE COLE MD >>ASSESSMENT AND PLAN FOR SACROILIITIS (HCC) WRITTEN ON 04/26/2022 4:49 PM BY STEPHANIE COLE MD Her pain specialist will be leaving the local area, but it sounds like she has someone else lined up to assist with management. Assessment & Plan (07/12/2023 4:25 AM CDT): >>ASSESSMENT AND PLAN FOR LUMBOSACRAL SPONDYLOLYSIS WRITTEN ON 06/03/2022 10:39 AM BY STEPHANIE COLE MD She went to see pain management. They put her on a Medrol Dosepak. They recommended physical therapy and an orthotic. Ultimately she may need a lumbar epidural steroid injection. In the meantime, she will continue the tizanidine. I reinforced that we do not prescribe chronic narcotics here. The provider in pain management did not offer of a refill her narcotic pain medication. She will call them to clarify this situation. In the meantime, she will call as needed for refills of tizanidine which she is taking primarily at bedtime to help her sleep. Pain management suggested she could try taking tizanidine 2 or 3 times a day, but there are risks including somnolence. She will try a morning dose sometime this weekend. If tolerated, she will call for refills as needed. Return here as needed for this problem, otherwise as scheduled. Assessment & Plan (07/12/2023 4:30 AM CDT): >>ASSESSMENT AND PLAN FOR CHRONIC MIDLINE LOW BACK PAIN WRITTEN ON 07/12/2023 4:25 AM BY STEPHANIE COLE MD >>ASSESSMENT AND PLAN FOR LUMBOSACRAL SPONDYLOLYSIS WRITTEN ON 04/24/2023 10:03 AM BY STEPHANIE COLE MD She is scheduled for low back surgery to remove hardware placed in 2015 and perform an interbody lumbar fusion. Surgery will be done by Dr. Marc. Recent labs are stable except for uncontrolled diabetes which is improved since starting a stricter diet and metformin. Follow-up here in three months. >>ASSESSMENT AND PLAN FOR SPONDYLOSIS WITHOUT MYELOPATHY OR RADICULOPATHY, SACRAL AND SACROCOCCYGEAL REGION WRITTEN ON 04/24/2023 10:03 AM BY STEPHANIE COLE MD She is scheduled for low back surgery to remove hardware placed in 2015 and perform an interbody lumbar fusion. Surgery will be done by Dr. Marc. Recent labs are stable except for uncontrolled diabetes which is improved since starting a stricter diet and metformin. Follow-up here in three months. Adult hypothyroidism 05/08/2014 Overview (01/21/2019): Managed by endocrinology Assessment & Plan (07/12/2023 1:21 PM CDT): TSH is low, but free T4 and free T3 are normal. We did not change any doses of medications. We will check again in three months. Continue current therapy. Lab Results Component Value Date TSH 0.21 (L) 07/05/2023 FREET4 1.25 07/05/2023 T3FREE 3.8 07/05/2023 Assessment & Plan (11/12/2022 3:15 PM CDT): Her thyroid condition is managed in endocrinology. A slight adjustment in treatment may be needed. Lab Results Component Value Date TSH 7.05 (H) 10/18/2022 Assessment & Plan (07/13/2022 4:08 PM CDT): Increase Cytomel to 10 mcg a.m. and 5 mcg p.o. Continue levothyroxine daily Encouraged the patient to keep a journal and see if increasing the dose makes any difference on her symptoms Assessment & Plan (04/11/2021 2:40 PM INDUSTRIAL ENERGY ENGINEER): Check TFTs Would recommend to increase LT3 to 5 mcg bid Will send rx after today labs Assessment & Plan (01/04/2021 6:01 PM CDT): Asymptomatic. Stable. Continue current prescription medications. Assessment & Plan (04/21/2020 4:16 PM INDUSTRIAL ENERGY ENGINEER): Continue Levothyroxine and Liothyronine, combination Importance of f taking the medication on an empty stomach, was explained again to the patient Assessment & Plan (12/19/2019 11:48 PM CDT): Continue levothyroxine Assessment & Plan (11/20/2019 2:29 AM CDT): Continue levothyroxine and Cytomel Assessment & Plan (02/05/2019 3:32 PM INDUSTRIAL ENERGY ENGINEER): Will check TSH and free T4 and T3 Will adjust dose of Levothyroxine accordingly . If there is a need to make changes, will recheck levels in 2-3 months. Instructions to patient on taking medication properly : in the morning, on an empty stomach , 1 h part from food and/or other meds. Assessment & Plan (11/06/2018 4:44 PM CDT): Lower Cytomel to 5 mcg daily, since it is most likely to cause hyperthyroid symptoms. Will recheck TFT's and advise on the dose of Levothyroxine changes Would recommend brand LT4 but pt states that she has serious financial restraints. Lymphocytic thyroiditis 08/02/2013 Overview (06/21/2016): [facility] LYMPHOCYT THYROIDIT Poliomyelitis osteopathy of multiple sites 08/02 Overview (10/18/2022): This diagnosis was linked to a prescription for a muscle relaxer from her former PCP. Assessment & Plan (07/07/2021 2:11 PM CDT): Patient seen by pain management, she was started on tramadol. Follow-up pain management. Continue meloxicam, tizanidine, and gabapentin. Persistent mood disorder 09/16/2009 Overview (10/14/2021): Anxiety and depression. Exact dates and details lacking. Assessment & Plan (01/25/2024 1:46 PM INDUSTRIAL ENERGY ENGINEER): Chronic, present for many years, currently reasonably well controlled on medications prescribed by her psychiatrist, Dr. Hurley, including quetiapine 600 mg at bedtime, lorazepam 1 mg 3 times daily as needed which she takes rarely, and desvenlafaxine 100 mg daily. Continue same and keep followups with psychiatry. Assessment & Plan (04/12/2023 3:21 PM INDUSTRIAL ENERGY ENGINEER): Her mood seems to be pretty stable on current therapy prescribed by her psychiatrist, Dr. Barton. Continue same. Assessment & Plan (10/26/2022 1:57 PM CDT): Her mood is worse. She is trying to get in with her psychiatrist early, currently not scheduled until sometime in January I believe. She has lots of worries about her who is chronically ill and may have memory problems, her foster brother who is disabled and may have prostate cancer, and other concerns including about her own health and chronic low back pain. She will continue her current antidepressant therapy and follow-up with Dr. Zachary Barton. Assessment & Plan (05/11/2022 10:13 AM INDUSTRIAL ENERGY ENGINEER): She sees Dr. Hurley and is on several medications. She would like to get off the Pristiq which is expensive. She will keep her follow ups with psychiatry. Assessment & Plan (10/30/2021 4:05 PM CDT): She has a psychiatrist and says her mood symptoms are under reasonable control. He tested her for metabolic breakdown of psychiatric medications and switched things around which helped. Continue same. Assessment & Plan (01/04/2021 6:01 PM CDT): Clinically improved, continue current prescription medications. Tobacco use disorder 03/19/1977 Assessment & Plan (06/23/2024 3:24 PM CDT): Chronic, present for decades, unable to quit smoking despite health consequences including on her lungs and now potentially on her heart. We nevertheless strongly encouraged her to quit. She reports having no cravings during recent hospitalizations for back surgery, so quitting is clearly feasible. Assessment & Plan (04/21/2024 8:30 PM INDUSTRIAL ENERGY ENGINEER): Spent 5 minutes in discussion of tobacco cessation today and advised of health benefits. Assessment & Plan (07/14/2023 12:55 PM CDT): Unstable, worse. She quit smoking for her back surgery but unfortunately has resumed. We encouraged smoking cessation. Assessment & Plan (04/12/2023 3:21 PM INDUSTRIAL ENERGY ENGINEER): She quit smoking one month ago. I congratulated her on the accomplishment. She does have cravings, but is managing to abstain. Assessment & Plan (10/26/2022 1:58 PM CDT): Insurance would not approve recommended back surgery until she quit smoking and lost some weight. She is working on this but it is hard. Assessment & Plan (04/26/2022 4:50 PM INDUSTRIAL ENERGY ENGINEER): She is still smoking cigarettes and has no plans to quit. We nevertheless did encourage cessation. Assessment & Plan (07/07/2021 2:08 PM CDT): Advised patient to quit smoking. Assessment & Plan (01/04/2021 6:01 PM CDT): Advised patient to quit smoking. Pt declined stating that smoking is the only thing keeping her sane. Assessment & Plan (01/26/2020 8:13 PM INDUSTRIAL ENERGY ENGINEER): Advised patient to quit smoking. Assessment & Plan (01/01/2020 4:14 PM CDT): Advised patient to quit smoking. Assessment & Plan (12/19/2019 11:51 PM CDT): Patient smokes 1 pack per day. Will order a nicotine patch. Assessment & Plan (11/20/2019 2:28 AM CDT): Patient smokes about a pack a day and has done so for 40 years. She has a nicotine patch Assessment & Plan (08/07/2019 2:55 PM CDT): Advised patient to quit smoking. Assessment & Plan (01/21/2019 11:40 AM INDUSTRIAL ENERGY ENGINEER): Advised patient to quit. She states she's not ready to quit. Acute non intractable tension-type headache Resolved Problems Problem Noted Date Diagnosed Date Resolved Date Depression with anxiety 04/30/202404/19 Morbid obesity with BMI of 40.0-44.9, adult 03/27/2024 04/21/2024 Community acquired pneumonia of right upper lobe of lung 01/18/2024 03/07/2024 Assessment & Plan (01/26/2024 2:52 PM INDUSTRIAL ENERGY ENGINEER): New problem, started about a week ago, slightly improved. She had a low-dose CT scan of her chest at [place] with her pulmonary nurse practitioner. A right upper lung pneumonia was diagnosed. She did not respond to antibiotics prescribed (doxycycline) and oxygen saturation went down to around 83%. She went to the ER and received additional treatments including a burst and taper of prednisone which she completes in a few more days, and amoxicillin/clavulanate. She is feeling improved but still coughs up yellow phlegm. She is also getting a blood-tinged yellowish discharge from her left nostril so there could be an associated sinus infection. She will follow up with Pulmonary Medicine or return here early as needed. Proteus (mirabilis) (morgani i) causing dis classd elswhr 05/17/2023 03/07/2024 Overview (03/07/2024): [place], details lacking. Furuncle of pubic region 03/26/202305/2024 Overview (07/12/2023): See phone message, antibiotics ordered. Acute cystitis 03/13/2023 07/12/2023 Overview (07/12/2023): See note from phone triage, Rx antibiotics. Yeast vaginitis 11/29/2022 07/12/2023 Overview (07/12/2023): Post antibiotics. Furuncle of extremity 09/25/20222023 Overview (11/22/2022): Treated with Augmentin with improvement. Recurrence on left posterior upper thigh in November 2022, Augmentin refilled. Furuncle of groin 09/25/2022 11/22/2022 Overview (11/22/2022): Treated empirically with Augmentin with improvement. Assessment & Plan (10/05/2022 4:14 PM CDT): Symptoms started 5 days ago, no current drainage. Assessment as noted above. Will rx augmentin as directed. Keep skin clean and dry, do not squeeze. Warm compresses will help also. Call if symptoms not resolved by end of augmentin dosing. Dysuria 05/09/2022 07/12/2023 Overview (07/12/2023): Saw Adolfo Cleary, ANP, empiric Rx ordered. Assessment & Plan (05/09/2022 10:46 AM INDUSTRIAL ENERGY ENGINEER): Acute problem, present times about 4 days Physical examination as documented - no signs/symptoms of serious illness noted Suspect UTI vs stone vs other etiology Recommended urinalysis and empiric treatment with Bactrim (since patient has reported improvement with this antibiotic) - also recommended continued supportive measures at this time - patient agreeable to plan Orders for [facility]MS STAFF to arrange Urinalysis with reflex to culture - dysuria Orders for Francisca Lee to arrange Start Bactrim as ordered - complete course, take with food and probiotic to prevent stomach upset and diarrhea Stay hydrated Consider using OTC Azo for burning with urination - take for 3 days then discontinue Continue monitoring symptoms - report persistent or worsening symptoms to the office or go to ER Follow up with Dr. Cole as scheduled or sooner if necessary Hordeolum of right eye 04/07/202204/21 Cough 11/02/2021 07/12/2023 Overview (07/12/2023): Saw SATISH Bui, symptoms managed. Assessment & Plan (11/02/2021 4:24 PM CDT): Presents with symptoms consistent with COPD exacerbation. No signs of infection or acute findings on exam. Tested negative for COVID/Flu in office today. Rxd Prednisone burst as directed. Refill albuterol inhaler PRN. Keep follow with sleep medicine at the end of this month. Seborrheic dermatitis 09/16/20212024 Overview (04/26/2022): Bilateral external auditory meatus and surrounding external ear. Assessment & Plan (04/26/2022 4:50 PM INDUSTRIAL ENERGY ENGINEER): For the past year or so, she is noted an itchy feeling at the external auditory meatus bilaterally and in the surrounding external ear. Exam shows a probable seborrheic dermatitis. We will have her start some ketoconazole cream. If not responding, she will let us know. Influenza A 03/23/2021 04/25/2022 Overview (04/25/2022): Saw Aliya Huertsa D.O. Assessment & Plan (03/23/2021 2:08 PM INDUSTRIAL ENERGY ENGINEER): Reiterated treatment plan. Encouraged patient to increase her liquids as tolerated. Recommended Excedrin migraine medication in place of Tylenol into headache breaks. Once headache break switch back to the ibuprofen Tylenol regiment discussed during telehealth visit. Precautions given as to when she should return to the nearest emergency room. Continue current prescription medications. Acute pain of left knee 08/17/202012/17 Assessment & Plan (08/17/2020 5:56 PM CDT): Prescriptions sent. Hagla-ka-eolzmk exercises encouraged once pain level decreases. Return to clinic if no resolution of pain. Confusion 12/19/2019 01/04/2021 Assessment & Plan (12/19/2019 11:50 PM CDT): Patient currently confused. She is having a hard time remembering what happened and when it happened leading her to come to the ED. Given constellation of symptoms of confusion, headache with nausea and abnormal findings on chest exam, will screen patient for COVID -19. Will also obtain a chest x-ray. Patient denies any shortness of breath or fevers. COVID -19 precautions. Class 2 severe obesity due t o excess calories with serious comorbidity and body mass index (BMI) of 39.0 to 39.9 in adult 11/07/2019 Assessment & Plan (08/06/2020 9:44 AM CDT): HPI: Condition is stable A&P: Healthy, low carbohydrate lifestyle and exercise for 150min/week recommended Substitutions: Recommend tracking everything you put in your mouth on an sophie like [employer] or [employer] carries a zero net carb bread [...] in much longer they will become mushy [place] and/or coconut flour instead of regular flour [...] pork rinds For yogurt, try [employer] swedish yogurt Use Pinterest for recipe ideas. Type in low carb... Assessment & Plan (01/26/2020 8:12 PM INDUSTRIAL ENERGY ENGINEER): Weight reduction, daily exercise and dietary modifications recommended. Assessment & Plan (01/01/2020 4:14 PM CDT): Weight reduction, daily exercise and dietary modifications recommended. Assessment & Plan (12/24/2019 12:17 PM CDT): Healthy, low carbohydrate lifestyle and exercise for 150min/week recommended Severe headache 11/07/2019 01/04/2021 Assessment & Plan (12/22/2019 1:11 PM CDT): Will start topamax 25mg at bedtime for migraine prevention. Has f/u scheduled with Dr. Carson. Reorder MRI brain and get it precerted and scheduled. Pt voiced understanding. Assessment & Plan (12/19/2019 11:48 PM CDT): With generalized weakness, slurred speech and confusion. Headache is different from last month. Headache has improved with medication she was given in the ED. Neurology has been consulted, await their evaluation. Patient was started on Elavil and Imitrex at last admission which will be resumed. Continue to monitor. Assessment & Plan (11/20/2019 2:31 AM CDT): Bilateral, throbbing with nausea and photophobia. Appears to be a migraine. Patient is under stress recently as her has leukemia and her mother is also sick. Patient has had headaches in the past and was on Imitrex. Patient still complaining of headache at this time. Will try 1 time dose of Fioricet. Patient had nausea and vomited once after receiving Dilaudid. Will try to avoid Dilaudid. Neurology has been consulted, will await their evaluation. Assessment & Plan (11/07/2019 7:48 PM CDT): Toradol 60mg IM given. Rx for Zofran given. Go to nearest ER if pain does not alleviate or if pain worsens. Nausea 11/07/2019 01/01/2020 Pain of left upper extremity 08/07/2019 01/01/2020 Assessment & Plan (08/07/2019 2:54 PM CDT): Referred to Ortho for further eval/mgmt of LUE pain. Skin lesion of breast 08/07/20192019 Assessment & Plan (08/07/2019 2:53 PM CDT): Referred to dermatology for further eval/mgmt. Acute pain of left shoulder 01/21/2019 01/01/2020 Severe episode of recurrent major depressive disorder, without psychotic features 08/30/2017 Overview (01/21/2019): Managed by psychiatry Assessment & Plan (01/26/2020 8:10 PM INDUSTRIAL ENERGY ENGINEER): Clinically improved, managed by psychiatrist. Assessment & Plan (12/19/2019 11:48 PM CDT): Continue home medications. Pristiq will be brought in by . Assessment & Plan (11/20/2019 2:29 AM CDT): Continue Wellbutrin. Pristiq is non formulary and patient is aware. Class 2 severe obesity due t o excess calories with serious comorbidity and body mass index (BMI) of 38.0 to 38.9 in adult 05/15/2017 0 Assessment & Plan (08/07/2019 2:54 PM CDT): Weight reduction, daily exercise and dietary modifications recommended. Assessment & Plan (01/21/2019 11:41 AM INDUSTRIAL ENERGY ENGINEER): Worsening. Encouraged patient to decrease weight, increase daily exercise, and modify diet. Influenza vaccination declined by patient 03/21/2017 01/26/2020 Hand numbness 03/08/2017 01/21/2019 Other disturbances of skin sensation 11/21/2016 04/21/2024 Herniation of intervertebral disc of lumbar spine 05/08/2014 07/12/2023 Overview (07/12/2023): Herniated disk, cervical and lumbar? Details lacking. Neck and back surgeries. Abnormal weight gain 08/02/2013 020 Overview (06/21/2016): ABNORMAL WEIGHT GAIN Anxiety 08/11/2009 10/14/2021 Overview (10/14/2021): Similar/duplicate entry on problem list. Assessment & Plan (01/26/2020 8:11 PM INDUSTRIAL ENERGY ENGINEER): Stable. Cont. Current meds. Managed by psychiatry. Assessment & Plan (12/19/2019 11:51 PM CDT): Continue home medications. Patient is on Xanax 2 mg t.i.d. p.r.n. which is not a new medication or dose for her. Assessment & Plan (11/20/2019 2:28 AM CDT): Continue p.r.n. Xanax Hypoxia 01/21/2019 Pneumonia due to infectious organism 01/21/2019 Encounters Date Type Department Care Team Description 07/14/2024 Telephone [facility] [address] [place] [phone] Stephanie Cole MD 06/27/2024 10:00 AM CDT - 06/27/2024 11:05 AM CDT Surgery [facility] Cardiac Catheterization [address] [place] [id number] Ran García MD LEFT HEART CATHETERIZATION WITH CORONARY ANGIOGRAPHY AND WITH OR WITHOUT LEFT VENTRICULOGRAM [id number] 06/27/2024 8:52 AM CDT - 06/27/2024 3:09 PM CDT Hospital Encounter [facility] Cardiac Catheterization [address] [place] [id number] Ran García MD Other chest pain Discharge Disposition: Discharge to home or self care 06/26/2024 11:40 AM CDT - 06/26/2024 12:49 PM CDT Emergency [facility] Emergency Department [address] [place] [address] Discharge Disposition: Left without being seen 06/26/2024 Telephone [facility] [address] [place] [address] Stephanie Cole MD 06/26/2024 Telephone [place] [facility] at [address] [place] [address] Stanley Reaves MA 06/24/2024 9:55 AM CDT Lab [address] [address] Adult hypothyroidism; Vitamin D deficiency; Type 2 diabetes mellitus with hyperglycemia, without long-term current use of insulin (HCC); Elevated liver enzymes; Medication monitoring encounter 06/24/2024 9:50 AM CDT Lab [address] [address] Other chest pain 06/24/2024 9:00 AM CDT Office Visit [place] [facility] at [address] [phone] Bonita Cotto NP Hyperlipidemia associated with type 2 diabetes mellitus (HCC) (Primary Dx); Chest pain, unspecified type; Other chest pain; Hypertension associated with type 2 diabetes mellitus (HCC) 06/24/2024 Results Follow-Up [facility] Medical [facility] [address] [place] [address] Stephanie Cole MD 06/24/2024 Orders Only [place] [facility] [address] [facility] [address] [place] [phone] Ran García MD Other chest pain (Primary Dx) 06/23/2024 2:30 PM CDT Office Visit [facility] [address] [place] [address] Stephanie Cole MD Chronic midline low back pain without sciatica (Primary Dx); Chest pain, unspecified type; Other chest pain; Hyperlipidemia associated with type 2 diabetes mellitus (HCC); Tobacco use disorder 06/23/2024 Telephone [facility] [address] [place] [address] Stephanie Cole MD 06/09/2024 Telephone [facility] [address] [facility] [address] [place] [address] Thea Byrd RN 06/04/2024 Telephone [facility] [address] [place] [address] Stephanie Cole MD 05/23/2024 Telephone [facility] [address] [place] [address] Stephanie Cole MD 05/20/2024 Telephone [facility] [address] [place] [address] Stephanie Cole MD 05/20/2024 Results Follow-Up [facility] [address] [place] [address] Stephanie Cole MD 05/19/2024 2:55 PM INDUSTRIAL ENERGY ENGINEER Lab [address] [phone] Elevated liver enzymes 05/19/2024 Telephone [facility] [address] [place] [address] Thea Byrd RN 05/15/2024 1:30 PM INDUSTRIAL ENERGY ENGINEER Office Visit [facility] [address] [place] [address] Jenny Tidwell MD Vulvar abscess (Primary Dx); Furuncle of pubic region; Family history of breast cancer; Encounter for screening mammogram for breast cancer 05/13/2024 Telephone [facility] [address] [place] [address] Stephanie Cole MD 05/08/2024 Telephone [facility] [address] [place] [address] Thea Byrd RN 04/23/2024 Telephone [facility] [address] [place] [address] Stephanie Cole MD Med Refill 04/22/2024 Telephone [facility] [address] [place] [address] Stephanie Cole MD 04/21/2024 2:10 PM INDUSTRIAL ENERGY ENGINEER Lab [facility] [address] [place] [address] Type 2 diabetes mellitus with hyperglycemia, without long-term current use of insulin (HCC); Class 3 severe obesity due to excess calories with serious comorbidity and body mass index (BMI) of 40.0 to 44.9 in adult (HCC); Hypertension associated with type 2 diabetes mellitus (HCC) 04/21/2024 1:30 PM INDUSTRIAL ENERGY ENGINEER Office Visit [facility] [address] [place] [address] Radha Werner NP Hospital discharge follow-up (Primary Dx); Chronic midline thoracic back pain; HTN (hypertension), benign; Class 3 severe obesity due to excess calories with serious comorbidity and body mass index (BMI) of 40.0 to 44.9 in adult (HCC); Tobacco use disorder 04/21/2024 Orders Only [facility] [address] [place] [address] Radha Werner NP from Last 3 Months Immunizations Immunization Administration Dates Next Due Influenza, Quadrivalent, Spl it, Preservative Free, Intramuscular 05/07/2022,01/04/2021,12/21/2019,11/29,01/11/2018 Influenza, Trivalent, Recomb inant, Egg Free, Preservative Free, Antibiotic Free, IM (FLUBLOK) 01/09/2024 Influenza, Unspecified 12/18/2023,2020(Deferred: Patient Refused) Pfizer SARS-CoV-2 Monovalent Vaccination (12+ Yrs) PURPLE 06/06/2020,05/14/2020 Pneumococcal Conjugate Pcv20 05/07/2022 Pneumococcal Polysaccharide PPV23 2020,05/31/2014,04/18/2013,03/19 Pneumococcal, Unspecified 04/18/2013 TD Preservative Free 03/19/2013 Td, adsorbed 10/13/2013,03/19/2013 Tdap 10/13/2013 ZOSTER Recombinant 07/19/2022,05/07/2022 Surgical History Surgery Date Site/Laterality Comments CERVICAL SPINE SURGERY 03/19/2016 - 03/18/2017 fusion and discectomy ELBOW SURGERY TONSILLECTOMY as a child ANAL FISSURECTOMY 03/19/1978 - 03/18/1979 TOTAL ABDOMINAL HYSTERECTOMY 03/19/2003 - 03/18/2004 menorrhagia and HPV (+) pap: TYRONE and RSO SALPINGOOPHORECTOMY 03/19/2003 - 03/18/2004 LSO SECTION 03/19/1985 - 03/18/1986 DILATION AND CURETTAGE OF UTERUS dysfunctional uterine bleeding (DUB) CHOLECYSTECTOMY 03/19/1985 - 03/18/1986 with appendectomy TUBAL LIGATION 03/19/2001 - 03/18/2002 BACK SURGERY 03/19/2015 - 03/18/2016 herniated disc, fractures in vertebrae BLADDER SUSPENSION 03/19/2003 - 03/18/2004 Details lacking BREAST CYST EXCISION 03/19/1980 - 03/18/1981 Left nonsurgical cyst excission APPENDECTOMY 03/19/1985 - 03/18/1986 SECTION 03/19/1985 - 03/18/1986 FRACTURE SURGERY 03/19/2017 - 03/18/2018 SPINE SURGERY 03/19/2015 - 03/18/2016 MAMMOGRAPHY 09/07/2021 Bilateral Negative, [facility]. BLADDER SUSPENSION 03/19/2010 - 03/18/2011 Details lacking. DIABETES EYE EXAM 01/18/2023 Bilateral Negative diabetic eye exam, [facility]. MAMMOGRAPHY 11/28/2022 Bilateral Negative, [facility] [place] UPPER GI AIR CONTRAST W KUB 03/17/2015 Left FL UPPER GI AIR CONTRAST W KUB 03/05/2015 Left LUMBAR SPINE SURGERY 04/20/2023 N/A Revision lumbar laminectomy, middle third facetectomy, bilateral foraminotomy. Revision posterior lumbar fusion. Use of autograft bone graft augmented with Infuse/allograft material for purposes of fusion. Dr. Marc, [facility]. Post-op wound dehiscence and infection managed with antibiotics and drainage/wound vac. ABDOMINAL SURGERY SKIN LESION EXCISION 09/12/2023 SKIN, LEFT CENTRAL FRONTAL SCALP, SHAVE BIOPSY, seborrheic keratosis, [facility] THORACIC SPINE SURGERY 03/26/2024 N/A Thoracic laminectomy and excisional biopsy of T5-T8 intradural mass Posterior thoracic fusion with instrumentation Use of autograft bone graft augmented with Infuse / allograft material for purposes of fusion. Jay Marc MD, [facility]. Pathology report: Arachnoid cyst, consistent with CARDIAC CATHETERIZATION 06/27/2024 N/A Procedure: LEFT HEART CATHETERIZATION WITH CORONARY ANGIOGRAPHY AND WITH OR WITHOUT LEFT VENTRICULOGRAM [id number]; Surgeon: Ran García MD; Location: [facility] CARDIAC MEDIA PLANNER / BUYER; Service: Cardiovascular; Laterality: N/A; Medical devices from this surgery are in the Medical Devices section. Medical History Medical History Date Comments Headache COPD (chronic obstructive pu lmonary disease) (HCC) 2012 Hypothyroidism Abnormal Pap smear of cervix 2003 HPV (+) pap Depression 2010 Smoking Hypertension Anxiety 20 years Class 3 severe obesity due t o excess calories with serious comorbidity and body mass index (BMI) of 40.0 to 44.9 in adult ([facility]) 06/10/2020 Cigarette nicotine dependenc e without complication 03/19/1977 Major depressive disorder, r ecurrent episode, moderate with anxious distress ([facility]) 03/05/2017 Exact dates and details lack ing. Anxiety 08/11/2009 Severe episode of recurrent major depressive disorder, without psychotic features ([facility]) 08/30/2017 Managed by psychiatry Mononucleosis 1976 Date approximate , details lacking. History of chickenpox 1967 Dates and details lacking Essential hypertension 01/21/2019 Mixed hyperlipidemia 08/16/2021 Influenza A 03/23/2021 Saw Aliya Huertas D.O. Furuncle of groin 09/25/2022 Treated empiri karlos with Augmentin with improvement. Furuncle of extremity 09/25/2022 Treated wi th Augmentin with improvement. Recurrence on left posterior upper thigh in November 2022, Augmentin refilled. Sacroiliitis 01/21/2019 Review of imagin g dating to 2020 and subsequently does not support this diagnosis. Acute cystitis 03/13/2023 See note from one triage, Rx antibiotics. Displacement of lumbar inter vertebral disc without myelopathy 01/04/2021 Details lacking. Dysuria 05/09/2022 Saw Adolfo Cleary, ANP, empiric Rx ordered. Facet arthropathy, lumbosacral 02/24/2015 D etails lacking. Herniation of intervertebral disc of lumbar spine 05/08/2014 Herniated disk, cervical and lumbar? Details lacking. Neck and back surgeries. Lumbosacral spondylolysis 05/06/2015 Overvi ew: with sciatica, L5S1/ TLIF performed by Dr Marc on 05/05/2015, OR EBL 300 ml >>OVERVIEW FOR SACROILIITIS ([facility]) WRITTEN ON 04/12/2023 6:06 AM BY STEPHANIE COLE MD Review of imaging dating to 2020 and subsequently does not support this diagnosis. Prediabetes 10/23/2017 Developed paige diabetes, late 2022-early 2023. 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 Spinal stenosis in cervical region 11/29/2016 Chronic. History of surgery. Yeast vaginitis 11/29/2022 Post antibiotics . Diabetes mellitus (HCC) 2023 Sleep apnea 2020 Morbid obesity (CMS/HCC) (HCC) 06/10/2020 Proteus (mirabilis) (morgani i) causing dis classd elswhr 05/17/2023 [place], [place], details lacking. Community acquired pneumonia of right upper lobe of lung 01/18/2024 Family History Medical History Relation Name Comments Depression Daughter Yesika Obesity Daughter Yesika Alzheimer's disease Father Eleonora Flores Diabetes Father Eleonora Flores Hyperlipidemia Father Eleonora Flores Lung disease Father Eleonora Flores asbestosis Memory loss Father Eleonora Flores Heart attack Maternal Grandmother Fatal, details lacking. Arthritis Mother Marycruz Breast cancer Mother Marycruz COPD Mother Marycruz Cancer Mother Marycruz Clotting disorder Mother Marycruz Depression Mother Marycruz Diabetes Mother Marycruz Drug abuse Mother Marycruz Emphysema Mother Marycruz Heart attack Mother Marycruz Massive, Heart disease Mother Marycruz Hyperlipidemia Mother Marycruz Hypertension Mother Marycruz Mental illness Mother Marycruz Obesity Mother Marycruz Ovarian cancer Mother Marycruz Heart attack Mother's Brother [facility] Breast cancer Mother's Sister 1 Cancer Mother's Sister 2 [place] Breast cancer Niece Arthritis Other Cancer Other Heart disease Other Hypertension Other Mental illness Other Breast cancer Sister 1 Cecily Mark BRCA positive COPD Sister 1 Cecily Mark Depression Sister 1 Cecily Mark Mental illness Sister 1 Cecily Mark Stroke Sister 1 Cecily Mark Cancer Sister 2 Cecily Diabetes Sister 2 Cecily Hyperlipidemia Sister 2 Ceciyl Hypertension Sister 2 Cecily Obesity Sister 2 Cecily Stroke Sister 2 Cecily Vision loss Sister 2 Cecily Thyroid cancer Neg Hx Relation Name Status Comments Daughter Yesika Father Eleonora Flores Maternal Grandmother Mother Marycruz Mother's Brother Ted Mother's Sister 1 Mother's Sister 2 [place] Niece Other Sister 1 Cecily Mark Alive Sister 2 Cecily Social History Tobacco Use Types Packs/Day Years Used Date Smoking Tobacco: Every Day Cigarettes 1 47.3 Started: [birth year]/19/1977 Smokeless Tobacco: Never Tobacco Cessation:Ready to Q uit: Not Asked; Counseling Given: Not Answered Comments:40 pack/years Alcohol Use Standard Drinks/Week Comments Not Currently 0 (1 standard drink = 0.6 oz pur e alcohol) Social Connection and Isolation Panel [NHANES] A nswer Date Recorded Frequency of Communication with Friends and Fami ly Not on file 01/30/2020 Frequency of Social Gatherings with Friends and Family Not on file 01/30/2020 How often do you attend sikh or adventist serv ices? Never 01/30/2020 Do you belong to any clubs o r organizations such as sikh groups, unions, fraternal or athletic groups, or [...] on file Legal Sex Female 1:21 PM INDUSTRIAL ENERGY ENGINEER Gender Identity Female 05/05/2022 8:09 AM INDUSTRIAL ENERGY ENGINEER Sexual Orientation Straight 11/04/2018 1: 20 PM CDT Occupation Industry Job Start Date Job End Date disabled Not on file Not on file Not on file Obstetrics History Para Term AB IAB SAB Ectopic Multiple Livin g Live Births 1 1 1 0 0 0 0 0 0 1 1 Date Outcome GA Total Labor Labor/2nd/3rd Weight Sex Type Anes PTL Janis A1 A5 Name Clin 07/05 85 Term 3.827 kg (8 lb 7 oz) F CS-Un spec Spinal Living Last Filed Vital Signs Vital Sign Reading Time Taken Comments Blood Pressure 178/86 06/27/2024 2:25 PM CDT Pulse 77 06/27/2024 2:25 PM CDT Temperature 36.9 C (98.4 F) 06/27/2024 9:11 AM CDT Respiratory Rate 26 06/27/2024 2:25 PM CDT Oxygen Saturation 94% 06/27/2024 2:25 PM CDT Inhaled Oxygen Concentration - - Weight 127.9 kg (282 lb) 06/27/2024 9:11 AM CDT Height 175.3 cm (5' 9 ) 06/27/2024 9:11 AM CDT Body Mass Index 41.64 06/27/2024 9:11 AM CDT Plan of Treatment Health Maintenance Due Date Last Done Comments DTaP/Tdap/Td Vaccine (2 - Td or Tdap) 10/14/2023 10/13/2013, 10/13/2013, 03/19/2013, Additional history exists Covid-19 Vaccine (2023-2 5 season) 2023 12/27/2021, 06/06/2020, 05/14/2020 Breast Cancer Screening-Mammogram 11/29/2023 11/28/2022, 09/07/2021, 09/07/2021, Additional history exists Dilated Eye Exam 01/19/2024 01/18/2023 Hemoglobin A1C 12/24/2024 06/24/2024, 02/0 05/2024, 03/06/2024, Additional history exists Lung Cancer Screening 01/18/2025 01/19/2024 , 11/28/2022, 09/07/2021, Additional history exists Depression Screening 01/24/2025 01/25/2024, 10/26/2022, 10/26/2022, Additional history exists Foot Exam 01/24/2025 01/25/2024, 2 07/2023, 04/26/2022 Regular Well Visit/Exam 18-64 01/24/2025, 10/26/2022, 10/14/2021, Additional history exists Albumin Creatinine Ratio, Urine 06/24/2025 06/24/2024, 04/21/2024, 10/18/2022 Lipid Panel 06/24/2025 06/24/2024, 02/0 05/2024, 10/18/2022, Additional history exists eGFR 06/26/2025 06/26/2024, 04/0 10/2024, 06/24/2024, Additional history exists Colon Cancer Screening-Colonoscopy 04/23/2027 04/23/2017 Colon Cancer Screening-CT Colonography Discontinued 04/23/2017 Colon Cancer Screening-DNA Stool Discontinued 04/23/19 18 Colon Cancer Screening-FIT Discontinued 04/23/2017 Colon Cancer Screening-Sigmoidoscopy Discontinued 04/23/2017 Hepatitis C Screening Completed 01/21/2019, 019 Hepatitis B Screening Completed 10/14/2021 Pneumococcal vaccine <65 Completed 023, 01/04/2021, 05/31/2014, Additional history exists Zoster Vaccine Completed 07/19/2022, 05/07/2022 Influenza Vaccine Completed 01/09/2024, , 05/07/2022, Additional history exists Medical Devices Implanted Type Area Document Reviewer Device Identifier Shelf Expiration Date Model / Serial / Lot [employer] Angio-Seal Vip 6fr Closere Device [id number] - [id number] Implanted:Qty: 1 on 06/27/2024 by Ran García MD at [facility] [employer] 11/11/2024 [id number] / / [id number] Procedures Procedure Name Priority Date/Time Associated Diagnosis Comments POCT GLUCOSE DEVICE Routine 06/27/2024 1 :43 PM CDT LEFT HEART CATHETERIZATION WITH CORONARY ANGIOGRAPHY AND WITH AND WITHOUT LEFT VENTRICULOGRAM Routine 06/27/2024 12:10 PM CDT Other chest pain POCT GLUCOSE DEVICE Routine 06/27/2024 9 :13 AM CDT XR CHEST 1 VIEW ED 06/26/2024 11:57 AM CDT EGFR STAT 06/26/2024 11:53 AM CDT DIFFERENTIAL AUTO STAT 06/26/2024 11: 53 AM CDT TROPONIN T HIGH-SENSITIVITY SERIES (BASELINE, 2HR, 4HR, 6HR) STAT 06/26/2024 11:53 AM CDT COMPREHENSIVE METABOLIC PANEL STAT 06/26/2024 11:53 AM CDT CBC WITH AUTO DIFFERENTIAL STAT 06/26/2024 11:53 AM CDT ECG 12-LEAD STAT 06/26/2024 11:47 AM CDT EGFR Routine 06/24/2024 10:04 AM CDT Type 2 diabetes mellitus with hyperglycemia, without long-term current use of insulin (HCC) EGFR Routine 06/24/2024 10:04 AM CDT Other chest pain DIFFERENTIAL AUTO Routine 06/24/2024 10: 04 AM CDT Other chest pain BILIRUBIN, DIRECT Routine 06/24/2024 10: 04 AM CDT Type 2 diabetes mellitus with hyperglycemia, without long-term current use of insulin (HCC) PROTIME-INR Routine 06/24/2024 10:04 AM CDT Other chest pain CBC WITH AUTO DIFFERENTIAL Routine 06/24/2024 10:04 AM CDT Other chest pain BASIC METABOLIC PANEL Routine 06/24/2024 10:04 AM CDT Other chest pain HEMOGLOBIN A1C Routine 06/24/2024 10:04 AM CDT Type 2 diabetes mellitus with hyperglycemia, without long-term current use of insulin (HCC) COMPREHENSIVE METABOLIC PANEL Routine 06/24/2024 10:04 AM CDT Type 2 diabetes mellitus with hyperglycemia, without long-term current use of insulin (HCC) ALBUMIN CREATININE RATIO, URINE Routine 06/24/2024 10:04 AM CDT Type 2 diabetes mellitus with hyperglycemia, without long-term current use of insulin (HCC) LIPID PANEL Routine 06/24/2024 10:04 AM CDT Type 2 diabetes mellitus with hyperglycemia, without long-term current use of insulin (HCC) VITAMIN D 25 HYDROXY Routine 06/24/2024 10:04 AM CDT Vitamin D deficiency TSH Routine 06/24/2024 10:04 AM CDT Adult hypothyroidism T3, FREE Routine 06/24/2024 10:04 AM CDT Adult hypothyroidism T4, FREE Routine 06/24/2024 10:04 AM CDT Adult hypothyroidism ECG 12-LEAD Routine 06/23/2024 2:23 PM CDT Chest pain, unspecified type HEPATIC FUNCTION PANEL Routine 2:56 PM INDUSTRIAL ENERGY ENGINEER Elevated liver enzymes EGFR Routine 04/21/2024 2:05 PM INDUSTRIAL ENERGY ENGINEER Class 3 severe obesity due to excess calories with serious comorbidity and body mass index (BMI) of 40.0 to 44.9 in adult (HCC) Hypertension associated with type 2 diabetes mellitus (HCC) DIFFERENTIAL AUTO Routine 04/21/2024 2:0 5 PM INDUSTRIAL ENERGY ENGINEER Type 2 diabetes mellitus with hyperglycemia, without long-term current use of insulin (HCC) COMPREHENSIVE METABOLIC PANEL Routine 04/21/2024 2:05 PM INDUSTRIAL ENERGY ENGINEER Class 3 severe obesity due to excess calories with serious comorbidity and body mass index (BMI) of 40.0 to 44.9 in adult (HCC) Hypertension associated with type 2 diabetes mellitus (HCC) ALBUMIN CREATININE RATIO, URINE Routine 04/21/2024 2:05 PM INDUSTRIAL ENERGY ENGINEER Type 2 diabetes mellitus with hyperglycemia, without long-term current use of insulin (HCC) CBC WITH AUTO DIFFERENTIAL Routine 04/21/2024 2:05 PM INDUSTRIAL ENERGY ENGINEER Type 2 diabetes mellitus with hyperglycemia, without long-term current use of insulin (HCC) HEMOGLOBIN A1C Routine 04/21/2024 2:05 PM INDUSTRIAL ENERGY ENGINEER Type 2 diabetes mellitus with hyperglycemia, without long-term current use of insulin (HCC) LIPID PANEL Routine 04/21/2024 2:05 PM INDUSTRIAL ENERGY ENGINEER Type 2 diabetes mellitus with hyperglycemia, without long-term current use of insulin (HCC) LUNG CANCER SCREENING Routine 01/19/2024 DIABETES EYE EXAM Routine 01/18/2023 MAMMOGRAPHY Routine 11/28/2022 HEPATITIS C ANTIBODY Routine 01/21/2019 11:48 AM INDUSTRIAL ENERGY ENGINEER Encounter for hepatitis C screening test for low risk patient COLONOSCOPY Routine 04/23/2017 from Last 3 Months or Most Recently Relevant to Health Maintenance Results * POCT glucose (06/27/2024 1:43 PM CDT) Glucose, POC 115 70 - 199 mg/dL Blood 06/27/2024 1:43 PM CDT 06/27/2024 1:43 PM CDT us Ran García MD LAB POCT ORDERABLES - DEVICE Fi nal Result [facility] [place] 1 [facility] Department [place] [address] * LEFT HEART CATHETERIZATION WITH CORONARY ANGIOGRAPHY AND WITH AND WITHOUT LEFT VENTRICULOGRAM (06/27/2024 12:10 PM CDT) Anatomical Region Laterality Modality X-Ray Angiograph y 06/27/2024 Narrative 06/30/2024 7:19 AM CDT [employer] Job ID: [id number] [employer] Document ID: [id number] Dictated date/time: [id number] CARDIAC CATHETERIZATION REPORT A 64-year-old with recurrent episodes of chest pain. She also had severe back pain. Presentation was concerning for angina. She was referred for catheterization. INDICATION FOR PROCEDURE Chest pain. PROCEDURES PERFORMED Left heart catheterization, selective coronary angiography, left ventriculography, vascular access closure. After obtaining informed consent, the patient was brought to the cardiac laborer shellfish processing suite. She was prepped and draped in the usual fashion. Conscious sedation was administered by the laborer shellfish processing staff under my supervision. A total of 8 mg of Versed, 300 mcg of fentanyl and 50 mg of Benadryl were given in divided doses. See procedure log for details. Total sedation time was 22 minutes. A 6-Beninese sheath was inserted in the right femoral artery. Selective coronary cannulation was performed with standard Michelle catheters. Left ventriculography was performed in the ORTIZ projection using pigtail followed by pullback. At the end of the procedure, the arterial sheath was removed and vascular access was closed using Angio-Seal with good hemostasis. FINDINGS: HEMODYNAMICS: LV pressure 140/16, ascending aortic pressure 140/80. LEFT VENTRICULOGRAPHY: This showed normal systolic wall motion, estimated ejection fraction 60%. There is evidence of calcifications in the ascending aorta. RIGHT CORONARY ARTERY: The right coronary artery was codominant vessel and was essentially a dual system with the RV marginal supplying the inferior LV wall. The right coronary system was angiographically normal. LEFT CORONARY ARTERY: The left main coronary was angiographically normal. The circumflex was a codominant vessel and gives a large 1st obtuse marginal and terminates as a large posterolateral branch. The circumflex system was angiographically normal. The left anterior descending had mild disease in the mid segment. IMPRESSION 1. Angiographically minimal coronary artery disease. 2. Normal left ventricular systolic function. 3. Normal left ventricular end-diastolic pressure. 4. Successful vascular access closure. CARE PLAN There are no high-grade lesions to warrant interventions. Consider noncardiac cause of chest pain. Ran R. Ricky, MD Job ID/Internal Job ID: [id number] Ran García MD CV CARDIAC CATH PROCEDURES Aziza l Result * POCT glucose (06/27/2024 9:13 AM CDT) Glucose, POC 197 70 - 199 mg/dL Blood 06/27/2024 9:13 AM CDT 06/27/2024 9:13 AM CDT us Ran García MD LAB POCT ORDERABLES - DEVICE Fi nal Result [facility] ([place]) 1 [facility] Department [place] [address] * XR Chest 1 Vw Portable (if patient condition/safety warrant portable) (06/26/2024 11:57 AM CDT) Anatomical Region Laterality Modality Body, Chest N/A Computed Radiogr aphy 06/26/2024 12:4 7 PM CDT Narrative 06/26/2024 12:49 PM CDT EXAM DESCRIPTION: XR CHEST 1 VIEW REASON FOR STUDY: chest pain c/o chest pain x 1 month. Pt is supposed to have a cardiac cath tomorrow. Pt took 2 nitro without relief. TECHNIQUE: Frontal radiographic view(s) of the chest. COMPARISON: February 06, 2024 FINDINGS: LUNGS: No focal opacity, pleural effusion, or pneumothorax. HEART/MEDIASTINUM: Cardiac silhouette normal in size. Mediastinal and hilar contours appear normal. LINES/TUBES: None. BONES: Postoperative changes of multilevel cervical fusion and multilevel thoracic fusion. Thoracic fusion has occurred since the prior study. No acute osseous abnormality. IMPRESSION: No acute cardiopulmonary abnormality. Postoperative changes of multilevel cervical fusion and multilevel thoracic fusion. THIS IS AN ELECTRONICALLY VERIFIED FINAL REPORT 06/26/2024 12:49 PM - Electronically signed by Manfred Santos M.D. RB: ROLANDO Report ID: [id number] Reading Location: [id number] Procedure Note Manfred Santos MD - 06/26/2024 EXAM DESCRIPTION: XR CHEST 1 VIEW REASON FOR STUDY: chest pain c/o chest pain x 1 month. Pt is supposed to have a cardiac cath tomorrow.Pt took 2 nitro without relief. TECHNIQUE: Frontal radiographic view(s) of the chest. COMPARISON: February 06, 2024 FINDINGS: LUNGS: No focal opacity, pleural effusion, or pneumothorax. HEART/MEDIASTINUM: Cardiac silhouette normal in size. Mediastinal andhilar contours appear normal. LINES/TUBES: None. BONES: Postoperative changes of multilevel cervical fusion and multilevel thoracic fusion. Thoracic fusion has occurred since the prior study. No acute osseous abnormality. IMPRESSION: No acute cardiopulmonary abnormality. Postoperative changes of multilevel cervical fusion and multilevelthoracic fusion. THIS IS AN ELECTRONICALLY VERIFIED FINAL REPORT 06/26/2024 12:49 PM - Electronically signed by Manfred Santos M.D. RB: RB Report ID: [id number] Reading Location: [id number] Kaitlin Muñoz MD IMG XR PROCEDURES F inal Result * Troponin T high-sensitivity series (baseline, 2hr, 4hr, 6hr) (06/26/2024 11:53 AM CDT) Trop T hs 12 <=14 ng/L Comment: Interpretive Data For further hscTnT resources including the diagnostic algorithm and an aid in interpretation, copy and paste this link: [email or web address].testcatalog.org/show/hsTrop Current Interpretive Data last revised 2020. Blood 06/26/2024 11:5 3 AM CDT 06/26/2024 11:57 AM CDT Kaitlin Muñoz MD LAB BLOOD ORDERABLE S Final Result CERDEL SING[facility] ([place]) [address] Department [place] [address] * eGFR (06/26/2024 11:53 AM CDT) Pathologist [facility] eGFR >90 >=60 mL/min/1. 73 m2 Comment: Interpretive Data Reference Interval Normal >/= 90 mL/min/1.73m2 Mildly decreased* 60 - 89 mL/min/1.73m2 Mildly to moderately decreased 45 - 59 mL/min/1.73m2 Moderately to severely decreased 30 - 44 mL/min/1.73m2 Severely decreased 15 - 29 mL/min/1.73m2 Kidney Failure < 15 mL/min/1.73m2 *Relative to young adult level Estimated glomerular filtration rate is determined by the 2020 CKD-EPI equation recommended by the National Kidney Foundation (A Unifying Approach to GFR Estimation: Recommendations of the NKF-ASK Task Force on Reassessing the Inclusion of Race in Diagnosing Kidney Disease, JASN 2020). The CKD-EPI equation should not be used for patients with unstable renal function and has not been validated in children and those over 70. Current interpretive data was last reviewed 2021. Blood 06/26/2024 11:5 3 AM CDT 06/26/2024 11:57 AM CDT us Kaitlin Muñoz MD LAB BLOOD ORDERABLE S Final Result [facility] ([place]) 1 [facility] Department [place] [address] * (ABNORMAL) Differential, auto (06/26/2024 11:53 AM CDT) Pathologist [facility] Neutrophil abs 6.16 1.50 - 6.50 K/cumm Imm gran abs 0.05 0.00 - 0.10 K/cumm [facility] ([place]) Lymphocyte abs 2.88 0.80 - 3.30 K/cumm [facility] ([place]) Monocyte abs 1.03(H) 0.20 - 0.80 K/cumm [facility] ([place]) Eosinophil abs 0.29 0.00 - 0.50 K/cumm [facility] ([place]) Basophil abs 0.06 0.00 - 0.10 K/cumm [facility] ([place]) Neutrophil pct 58.8 % [facility] ([place]) Comment: Interpretive Data Percent cell count reference ranges are not reported, since discordance with absolute values may lead to misinterpretation of CBC data. Current Interpretive Data was last revised on 2017. Imm gran pct 0.5 % [facility] ([place]) Comment: Interpretive Data Percent cell count reference ranges are not reported, since discordance with absolute values may lead to misinterpretation of CBC data. Current Interpretive Data was last revised on 2017. Lymphocyte pct 27.5 % [facility] ([place]) Comment: Interpretive Data Percent cell count reference ranges are not reported, since discordance with absolute values may lead to misinterpretation of CBC data. Current Interpretive Data was last revised on 2017. Monocyte pct 9.8 % [facility] ([place]) Comment: Interpretive Data Percent cell count reference ranges are not reported, since discordance with absolute values may lead to misinterpretation of CBC data. Current Interpretive Data was last revised on 2017. Eosinophil pct 2.8 % [facility] ([place]) Comment: Interpretive Data Percent cell count reference ranges are not reported, since discordance with absolute values may lead to misinterpretation of CBC data. Current Interpretive Data was last revised on 2017. Basophil pct 0.6 % [facility] ([place]) Comment: Interpretive Data Percent cell count reference ranges are not reported, since discordance with absolute values may lead to misinterpretation of CBC data. Current Interpretive Data was last revised on 2017. Blood 06/26/2024 11:5 3 AM CDT 06/26/2024 11:57 AM CDT us Kaitlin Muñoz MD LAB BLOOD ORDERABLE S Final Result [facility] ([place]) 1 [facility] Department [place] [address] * (ABNORMAL) CBC with auto differential (06/26/2024 11:53 AM CDT) WBC 10.47(H) 3.80 - 9.90 K/cumm Hgb 11.8(L) 11.9 - 15.5 g/dL [facility] ([place]) Hct 37.5 35.6 - 45.5 % [facility] ([place]) Plt 326 150 - 400 K/cumm [facility] ([place]) MPV 10.4 9.1 - 12.3 fL [facility] ([place]) RBC 4.32 3.90 - 5.20 M/cumm [facility] ([place]) MCV 86.8 81.3 - 96.4 fL [facility] ([place]) MCH 27.3 27.1 - 33.3 pg [facility] ([place]) MCHC 31.5(L) 32.3 - 35.7 g/dL [facility] ([place]) RDW CV 14.6 11.1 - 14.9 % [facility] ([place]) RDW SD 46.5 35.7 - 48.1 fL [facility] ([place]) NRBC abs 0.00 0.00 - 0.01 [facility]cumm [facility] Blood Venous blood specimen / Unknown 06/26/2024 11:53 AM CDT 06/26/2024 11:57 AM CDT us Kaitlin Muñoz MD LAB BLOOD ORDERABLE S Final Result [facility] ([place]) 1 [facility] Department [place] [address] * (ABNORMAL) Comprehensive metabolic panel (06/26/2024 11:53 AM CDT) Sodium 134(L) 135 - 145 mmol/L Potassium, pl 4.3 3.3 - 4.9 mmol/L [facility] ([place]) Chloride 98 97 - 110 mmol/L [facility] ([place]) CO2 25 22 - 32 mmol/L [facility] ([place]) Anion gap 11 2 - 15 mmol/L [facility] ([place]) BUN 14 6 - 25 mg/dL [facility] ([place]) Creatinine 0.70 0.60 - 1.10 mg/dL [facility] ([place]) Glucose 201(H) 70 - 199 mg/dL [facility] ([place]) Comment: Interpretive Data Fasting glucose >/= 126 mg/dl is diagnostic for diabetes. Fasting is defined as no caloric intake for at least 8 hours. Fasting glucose between 100 mg/dl to 125 mg/dl is diagnostic of prediabetes. In a patient with classic symptoms of hyperglycemia or hyperglycemic crisis, a random glucose >/= 200 mg/dl is diagnostic for diabetes. In the absence of unequivocal hyperglycemia, results should be confirmed by repeat testing. The classification and Diagnosis of Diabetes Diabetes Care 2021; 46: S19-S40. Current interpretive data was last revised 2022. Calcium 9.3 8.5 - 10.3 mg/dL [facility] ([place]) Bilirubin, total <0.2 0.1 - 1.2 mg/dL [facility] ([place]) Protein, pl 7.0 6.5 - 8.5 g/dL [facility] ([place]) Albumin 4.0 3.5 - 5.0 g/dL [facility] ([place]) Alk phos 116 40 - 130 Units/L [facility] ([place]) ALT 78(H) 7 - 45 Units/L [facility] ([place]) AST 38 10 - 45 Units/L [facility] ([place]) Blood 06/26/2024 11:5 3 AM CDT 06/26/2024 11:57 AM CDT us Kaitlin Muñoz MD LAB BLOOD ORDERABLE S Final Result [facility] ([place]) 1 [facility] Department of Laboratories [place], [place] [id number] * ECG 12 lead (06/26/2024 11:47 AM CDT) 06/26/2024 11:4 7 AM CDT Narrative [facility] - 06/26/2024 12:19 PM CDT Vent Rate: 80 bpm RR Interval: 748 msec MN Interval: 156 msec QRS Duration: 94 msec QT Interval: 343 msec QTC Interval: 379 msec P-R-T [place]: 56 - 60 - 49 degrees IMPRESSION: SINUS RHYTHM NORMAL ECG NO CHANGE FROM PREVIOUS TRACING NOTED Electronically Signed By: Rna García MD Kaitlin Muñoz MD ECG ORDERABLES Fin al Result [facility] * eGFR (06/24/2024 10:04 AM CDT) eGFR >90 >=60 mL/min/1. 73 m2 Comment: Interpretive Data Reference Interval Normal >/= 90 mL/min/1.73m2 Mildly decreased* 60 - 89 mL/min/1.73m2 Mildly to moderately decreased 45 - 59 mL/min/1.73m2 Moderately to severely decreased 30 - 44 mL/min/1.73m2 Severely decreased 15 - 29 mL/min/1.73m2 Kidney Failure < 15 mL/min/1.73m2 *Relative to young adult level Estimated glomerular filtration rate is determined by the 2020 CKD-EPI equation recommended by the National Kidney Foundation (A Unifying Approach to GFR Estimation: Recommendations of the NKF-ASK Task Force on Reassessing the Inclusion of Race in Diagnosing Kidney Disease, JASN 2020). The CKD-EPI equation should not be used for patients with unstable renal function and has not been validated in children and those over 70. Current interpretive data was last reviewed 2021. Blood 06/24/2024 10:0 4 AM CDT 06/24/2024 10:52 AM CDT us Stephanie Cole MD LAB BLOOD ORDERABLES Final Re sult [facility] ([place]) 1 [facility] Department [place] [address] * eGFR (06/24/2024 10:04 AM CDT) eGFR >90 >=60 mL/min/1. 73 m2 Comment: Interpretive Data Reference Interval Normal >/= 90 mL/min/1.73m2 Mildly decreased* 60 - 89 mL/min/1.73m2 Mildly to moderately decreased 45 - 59 mL/min/1.73m2 Moderately to severely decreased 30 - 44 mL/min/1.73m2 Severely decreased 15 - 29 mL/min/1.73m2 Kidney Failure < 15 mL/min/1.73m2 *Relative to young adult level Estimated glomerular filtration rate is determined by the 2020 CKD-EPI equation recommended by the National Kidney Foundation (A Unifying Approach to GFR Estimation: Recommendations of the NKF-ASK Task Force on Reassessing the Inclusion of Race in Diagnosing Kidney Disease, JASN 2020). The CKD-EPI equation should not be used for patients with unstable renal function and has not been validated in children and those over 70. Current interpretive data was last reviewed 2021. Blood 06/24/2024 10:0 4 AM CDT 06/24/2024 10:52 AM CDT us Ran García MD LAB BLOOD ORDERABLES Final Resu lt [facility] ([place]) 1 [facility] Department [place] [address] * (ABNORMAL) Differential, auto (06/24/2024 10:04 AM CDT) Neutrophil abs 6.66(H) 1.50 - 6.50 K/cumm Imm gran abs 0.05 0.00 - 0.10 K/cumm [facility] ([place]) Lymphocyte abs 2.19 0.80 - 3.30 K/cumm [facility] ([place]) Monocyte abs 0.81(H) 0.20 - 0.80 K/cumm [facility] ([place]) Eosinophil abs 0.29 0.00 - 0.50 K/cumm [facility] ([place]) Basophil abs 0.08 0.00 - 0.10 K/cumm [facility] ([place]) Neutrophil pct 66.1 % [facility] ([place]) Comment: Interpretive Data Percent cell count reference ranges are not reported, since discordance with absolute values may lead to misinterpretation of CBC data. Current Interpretive Data was last revised on 2017. Imm gran pct 0.5 % [facility] ([place]) Comment: Interpretive Data Percent cell count reference ranges are not reported, since discordance with absolute values may lead to misinterpretation of CBC data. Current Interpretive Data was last revised on 2017. Lymphocyte pct 21.7 % [facility] ([place]) Comment: Interpretive Data Percent cell count reference ranges are not reported, since discordance with absolute values may lead to misinterpretation of CBC data. Current Interpretive Data was last revised on 2017. Monocyte pct 8.0 % [facility] ([place]) Comment: Interpretive Data Percent cell count reference ranges are not reported, since discordance with absolute values may lead to misinterpretation of CBC data. Current Interpretive Data was last revised on 2017. Eosinophil pct 2.9 % [facility] ([place]) Comment: Interpretive Data Percent cell count reference ranges are not reported, since discordance with absolute values may lead to misinterpretation of CBC data. Current Interpretive Data was last revised on 2017. Basophil pct 0.8 % [facility] ([place]) Comment: Interpretive Data Percent cell count reference ranges are not reported, since discordance with absolute values may lead to misinterpretation of CBC data. Current Interpretive Data was last revised on 2017. Blood 06/24/2024 10:0 4 AM CDT 06/24/2024 10:52 AM CDT us Ran García MD LAB BLOOD ORDERABLES Final Resu lt [facility] ([place]) 1 [facility] Department [place] [address] * (ABNORMAL) CBC with auto differential (06/24/2024 10:04 AM CDT) WBC 10.08(H) 3.80 - 9.90 K/cumm Hgb 12.3 11.9 - 15.5 g/dL [facility] ([place]) Hct 39.7 35.6 - 45.5 % [facility] ([place]) Plt 342 150 - 400 K/cumm [facility] ([place]) MPV 11.2 9.1 - 12.3 fL [facility] ([place]) RBC 4.54 3.90 - 5.20 M/cumm [facility] ([place]) MCV 87.4 81.3 - 96.4 fL [facility] ([place]) MCH 27.1 27.1 - 33.3 pg [facility] ([place]) MCHC 31.0(L) 32.3 - 35.7 g/dL [facility] ([place]) RDW CV 14.5 11.1 - 14.9 % [facility] ([place]) RDW SD 46.0 35.7 - 48.1 fL [facility] ([place]) NRBC abs 0.00 0.00 - 0.01 K/cumm [facility] ([place]) Blood 06/24/2024 10:0 4 AM CDT 06/24/2024 10:52 AM CDT Ran García MD LAB BLOOD ORDERABLES Final Resu lt [facility] ([place]) 1 [facility] Department [place] [address] * Albumin Creatinine Ratio, Urine (06/24/2024 10:04 AM CDT) Albumin Ur <12.0 mg/L Comment: Interpretive Data No reference range established. Current interpretive data was last revised 2018. Testing performed by: [address] [address] Creatinine Ur 61.5 mg/dL [facility] ([place]) Comment: Interpretive Data No reference range established. Current interpretive data was last revised 2018. Testing performed by: [address] [address] Albumin Creatinine Ratio, Ur <20 1 - 29 mg/g [facility] ([place]) Comment:Testing performed by : [address] [address] Urine 06/24/2024 10:0 4 AM CDT 06/24/2024 2:22 PM CDT Stephanie Cole MD LAB URINE ORDERABLES Final Re sult Performing Organization Address City/[facility]/ZIP Co de Phone Number [facility] ([place]) 1 [facility] [employer] [place] [address] * Vitamin D 25 hydroxy (06/24/2024 10:04 AM CDT) Pathologist [facility] Vitamin D 25-OH 36 30 - 80 ng/mL Blood 06/24/2024 10:0 4 AM CDT 06/24/2024 10:52 AM CDT Stephanie Cole MD LAB BLOOD ORDERABLES Final Re sult Performing Organization Address [facility] Co de Phone Number [facility]AR [facility] ([place]) 1 [facility] [employer] [place] [address] * Protime-INR (06/24/2024 10:04 AM CDT) Pathologist [facility] PT 11.8 9.7 - 13.0 sec [facility] ([place]) INR 1.09 0.90 - 1.20 [facility] ([place]) Comment: Interpretive data Oral anticoagulant therapeutic ranges: Venous thromboembolism prophylaxis or treatment: 2.0-3.0 CARDIOLOGY Standard range: 2.0-3.0 High-intensity range: 2.5-3.5 Refer to indication-specific guidelines for appropriate target ranges for prosthetic heart valve replacement. Current interpretive data was last revised on 2019. Blood 06/24/2024 10:0 4 AM CDT 06/24/2024 10:52 AM CDT Ran García MD LAB BLOOD ORDERABLES Final Resu lt Performing Organization Address [facility] Co de Phone Number [facility] ([place]) 1 [facility] [employer] [place] [address] * T3, free (06/24/2024 10:04 AM CDT) Free T3 3.7 2.0 - 4.4 pg/mL Comment:Testing performed by : [facility], [address] [place] [address], [place]., [address] Blood 06/24/2024 10:0 4 AM CDT 06/24/2024 2:22 PM CDT Stephanie Cole MD LAB BLOOD ORDERABLES Final Re sult Performing Organization Address [facility] Co de Phone Number JAMAR SING[facility] ([place]) 1 [facility] [employer] [place] [address] * TSH (06/24/2024 10:04 AM CDT) [facility] Thyroid Stimulating Hormone 0.62 0.30 - 4.20 mcIUnit/mL Blood 06/24/2024 10:0 4 AM CDT 06/24/2024 10:52 AM CDT Stephanie Cole MD LAB BLOOD ORDERABLES Final Re sult Performing Organization Address [facility] Co de Phone Number [facility] S[facility] ([place]) 1 [facility] [place] [address] * (ABNORMAL) T4, free (06/24/2024 10:04 AM CDT) [facility] Free T4 0.88(L) 0.90 - 1.70 ng/dL Blood 06/24/2024 10:0 4 AM CDT 06/24/2024 10:52 AM CDT Stephanie Cole MD LAB BLOOD ORDERABLES Final Re sult Performing Organization Address [facility] Co de Phone Number JAMAR SINGH ([place]) 1 [facility] [place] [address] * (ABNORMAL) Hemoglobin A1c (06/24/2024 10:04 AM CDT) [facility] Hgb A1C 6.9(H) 4.0 - 5.6 % Estimated Average Glucose 151 mg/dL JAMAR SINGH ([place]) Comment: The ADA recommends reporting an estimated Average Glucose (eAG) with all Hemoglobin A1c results using the equation derived from a study of 507 normal and diabetic adults. Minority populations were underrepresented and children were not included. (Diabetes Care 31:3344-1176, 2008). The eAG is not equivalent to a fasting glucose. Blood 06/24/2024 10:0 4 AM CDT 06/24/2024 10:52 AM CDT Stephanie Cole MD LAB BLOOD ORDERABLES Final Re sult JAMAR SINGH ([place]) [address] [place] [address] of [place] [address] * Bilirubin, direct (06/24/2024 10:04 AM CDT) Bilirubin, direct <0.1 0.1 - 0.3 mg/dL Blood 06/24/2024 10:0 4 AM CDT 06/24/2024 10:52 AM CDT Stephanie Cole MD LAB BLOOD ORDERABLES Final Re sult Performing Organization Address City/[facility]/ZIP Co de Phone Number JAMAR SINGH ([place]) [address] [place] [address] [place] [address] * (ABNORMAL) Lipid panel (06/24/2024 10:04 AM CDT) Cholesterol 128 30 - 199 mg/dL Comment: Interpretive Data Ages < or = 19 years Acceptable: <170 mg/dL Borderline high: 170-199 mg/dL High: >or= 200 mg/dL Ages > or = 20 years Desirable: <200 mg/dL Borderline high: 200-239 mg/dL High: >or= 240 mg/dL Literature References: 1. Expert Panel on Integrated Guidelines for Cardiovascular Health and Risk Reduction in Children and Adolescents. Pediatrics 2011;128:S213 2. NCEP Expert Panel. Circulation 2004;110:227 Current Interpretive Data was last revised on 2017. Triglycerides 161(H) <=149 mg/dL JAMAR SINGH ([place]) Comment: Interpretive Data Ages < or = 9 years Acceptable: <75 mg/dL Borderline high: 75-99 mg/dL High: >or= 100 mg/dL Ages 10 to 20 years Acceptable: <90 mg/dL Borderline high: 90-129 mg/dL High: >or= 130 mg/dL Ages > or = 20 years Desirable: <150 mg/dL Borderline high: 150-199 mg/dL High: 200-499 mg/dL Very high: >or= 499 mg/dL Literature References: 1. Expert Panel on Integrated Guidelines for Cardiovascular Health and Risk Reduction in Children and Adolescents. Pediatrics 2011;128:S213 2. NCEP Expert Panel. Circulation 2004;110:227 Current Interpretive Data was last revised on 2017. HDL 42 >=40 mg/dL JAMAR SINGH ([place]) Comment: Interpretive Data Ages < or = 19 years Acceptable: >45 mg/dL Borderline low: 40-45 mg/dL Low: <40 mg/dL Ages > or = 20 years Desirable: >or= 60 mg/dL Low: <40 mg/dL Literature References: 1. Expert Panel on Integrated Guidelines for Cardiovascular Health and Risk Reduction in Children and Adolescents. Pediatrics 2011;128:S213 2. NCEP Expert Panel. Circulation 2004;110:227 Current Interpretive Data was last revised on 2017. LDL, calculated 59 <=129 mg/dL JAMAR SINGH ([place]) Comment: Interpretive Data Ages < or = 19 years Acceptable: <110 mg/dL Borderline high: 110-129 mg/dL High: >or= 130 mg/dL Ages > or = 20 years Optimal: <100 mg/dL Near optimal: 100-129 mg/dL Borderline high: 130-159 mg/dL High: >160 mg/dL Calculated using the Farshad LDL-C estimating equation. This equation was implemented on 2023. Prior to this date LDL-C was estimated using the Friedewald equation. Literature References: 1. Expert Panel on Integrated Guidelines for Cardiovascular Health and Risk Reduction in Children and Adolescents. Pediatrics 2011;128:S213 2. NCEP Expert Panel. Circulation 2004;110:227 3. Farshad Siddiqui et al. ISIAH Cardiol. 2019July 17;5(5):540-548. doi: 10.1001/[email or web address].2020.0013 Current Interpretive Data was last revised on 2023. Non-HDL Cholesterol 86 mg/dL [facility] ([place]) Comment: Interpretive Data Ages < or = 19 years Acceptable: <120 mg/dL Borderline high: 120-144 mg/dL High: >145 mg/dL Ages > or = 20 years When triglycerides are >200 mg/dL, Non-HDL cholesterol is a secondary target of therapy with treatment goals that are 30 mg/dL greater than the LDL cholesterol target. Literature References: 1. Expert Panel on Integrated Guidelines for Cardiovascular Health and Risk Reduction in Children and Adolescents. Pediatrics 2011;128:S213 2. NCEP Expert Panel. Circulation 2004;110:227 Current Interpretive Data was last revised on 2017. Chol/HDL ratio 3 GARRYNE Lili [facility] ([place]) Blood 06/24/2024 10:0 4 AM CDT 06/24/2024 10:52 AM CDT us Stephanie Cole MD LAB BLOOD ORDERABLES Final Re sult [facility] ([place]) 1 [facility] Department [place] [address] * (ABNORMAL) Comprehensive metabolic panel (06/24/2024 10:04 AM CDT) Sodium 134(L) 135 - 145 mmol/L Potassium, pl 4.4 3.3 - 4.9 mmol/L [facility] ([place]) Chloride 98 97 - 110 mmol/L [facility] ([place]) CO2 25 22 - 32 mmol/L [facility] ([place]) Anion gap 12 2 - 15 mmol/L [facility] ([place] BUN 11 6 - 25 mg/dL [facility] ([place]) Creatinine 0.68 0.60 - 1.10 mg/dL [facility] ([place]) Glucose 269(H) 70 - 199 mg/dL [facility] ([place]) Comment: Interpretive Data Fasting glucose >/= 126 mg/dl is diagnostic for diabetes. Fasting is defined as no caloric intake for at least 8 hours. Fasting glucose between 100 mg/dl to 125 mg/dl is diagnostic of prediabetes. In a patient with classic symptoms of hyperglycemia or hyperglycemic crisis, a random glucose >/= 200 mg/dl is diagnostic for diabetes. In the absence of unequivocal hyperglycemia, results should be confirmed by repeat testing. The classification and Diagnosis of Diabetes Diabetes Care 2021; 46: S19-S40. Current interpretive data was last revised 2022. Calcium 9.6 8.5 - 10.3 mg/dL [facility] ([place]) Bilirubin, total <0.2 0.1 - 1.2 mg/dL [facility] ([place]) Protein, pl 7.2 6.5 - 8.5 g/dL [facility] ([place]) Albumin 4.1 3.5 - 5.0 g/dL [facility] ([place]) Alk phos 125 40 - 130 Units/L [facility] ([place]) ALT 87(H) 7 - 45 Units/L [facility] ([place]) AST 54(H) 10 - 45 Units/L [facility] ([place]) Blood 06/24/2024 10:0 4 AM CDT 06/24/2024 10:52 AM CDT us Stephanie Cole MD LAB BLOOD ORDERABLES Final Re sult [facility] ([place] 1 [facility] Department [place] [address] * (ABNORMAL) Basic metabolic panel (06/24/2024 10:04 AM CDT) Sodium 135 135 - 145 mmol/L Potassium, pl 4.5 3.3 - 4.9 mmol/L [facility] ([place]) Chloride 98 97 - 110 mmol/L [facility] ([place]) CO2 24 22 - 32 mmol/L [facility] ([place]) Anion gap 13 2 - 15 mmol/L [facility] ([place]) BUN 12 6 - 25 mg/dL [facility] ([place]) Creatinine 0.65 0.60 - 1.10 mg/dL [facility] ([place]) Glucose 264(H) 70 - 199 mg/dL [facility] ([place]) Comment: Interpretive Data Fasting glucose >/= 126 mg/dl is diagnostic for diabetes. Fasting is defined as no caloric intake for at least 8 hours. Fasting glucose between 100 mg/dl to 125 mg/dl is diagnostic of prediabetes. In a patient with classic symptoms of hyperglycemia or hyperglycemic crisis, a random glucose >/= 200 mg/dl is diagnostic for diabetes. In the absence of unequivocal hyperglycemia, results should be confirmed by repeat testing. The classification and Diagnosis of Diabetes Diabetes Care 2021; 46: S19-S40. Current interpretive data was last revised 2022. Calcium 9.4 8.5 - 10.3 mg/dL JAMAR SINGH ([place]) Blood 06/24/2024 10:0 4 AM CDT 06/24/2024 10:52 AM CDT us Ran García MD LAB BLOOD ORDERABLES Final Resu lt JAMAR SINGH ([place]) 1 [facility] Department [place] [address] * ECG 12-LEAD (06/23/2024 2:23 PM CDT) Narrative Stephanie Cole MD - 06/23/2024 2:23 PM CDT Stephanie Cole MD 06/23/2024 5:21 PM ECG 12 lead Date/Time: 06/23/2024 2:23 PM Performed by: Stephanie Cole MD Authorized by: Stephanie Cole MD Comparison: compared with previous ECG from 12/19/2019 Similar to previous ECG Rhythm: sinus rhythm Rate: normal BPM: 88 QRS axis: normal Conduction: conduction normal ST Segments: ST segments normal T Waves: T waves normal Clinical impression: normal ECG us Stephanie Cole MD ECG ORDERABLES Edited Result - Final * Hepatic function panel (05/19/2024 2:56 PM INDUSTRIAL ENERGY ENGINEER) Bilirubin, total 0.2 0.1 - 1.2 mg/dL Bilirubin, direct <0.1 0.1 - 0.3 mg/dL [facility] ([place]) Comment:Hemolysis present. R esults may be affected. Protein, pl 7.7 6.5 - 8.5 g/dL [facility] ([place]) Albumin 4.5 3.5 - 5.0 g/dL [facility] ([place]) Alk phos 124 40 - 130 Units/L [facility] ([place]) ALT 45 7 - 45 Units/L [facility] ([place]) AST 33 10 - 45 Units/L [facility] ([place]) Comment:Slightly Hemolyzed S pecimen Blood 05/19/2024 2:56 PM INDUSTRIAL ENERGY ENGINEER 05/19/2024 3:53 PM INDUSTRIAL ENERGY ENGINEER us Stephanie Cole MD LAB BLOOD ORDERABLES Final Re sult [facility] ([place]) 1 [facility] Department [place] [address] * eGFR (04/21/2024 2:05 PM INDUSTRIAL ENERGY ENGINEER) eGFR 64 >=60 mL/min/1. 73 m2 Comment: Interpretive Data Reference Interval Normal >/= 90 mL/min/1.73m2 Mildly decreased* 60 - 89 mL/min/1.73m2 Mildly to moderately decreased 45 - 59 mL/min/1.73m2 Moderately to severely decreased 30 - 44 mL/min/1.73m2 Severely decreased 15 - 29 mL/min/1.73m2 Kidney Failure < 15 mL/min/1.73m2 *Relative to young adult level Estimated glomerular filtration rate is determined by the 2020 CKD-EPI equation recommended by the National Kidney Foundation (A Unifying Approach to GFR Estimation: Recommendations of the NKF-ASK Task Force on Reassessing the Inclusion of Race in Diagnosing Kidney Disease, JASN 2020). The CKD-EPI equation should not be used for patients with unstable renal function and has not been validated in children and those over 70. Current interpretive data was last reviewed 2021. Testing performed by: [facility], [address] [place] [address], [place]., [address] Blood 04/21/2024 2:05 PM INDUSTRIAL ENERGY ENGINEER 04/21/2024 9:12 PM INDUSTRIAL ENERGY ENGINEER us Radha Werner NP LAB BLOOD ORDERABLES Final Resul t [address] Department [place] [address] * Differential, auto (04/21/2024 2:05 PM INDUSTRIAL ENERGY ENGINEER) Neutrophil abs 4.5 1.5 - 6.5 K/cumm Comment:Testing performed by : [address] [address] Imm gran abs 0.0 0.0 - 0.1 K/cumm CERNER Comment:Testing performed by : [address] [address] Lymphocyte abs 3.1 0.8 - 3.3 K/cumm CERNER Comment:Testing performed by : [address] [address] Monocyte abs 0.8 0.2 - 0.8 K/cumm CERNER Comment:Testing performed by : [address] [address] Eosinophil abs 0.4 0.0 - 0.5 K/cumm CERNER Comment:Testing performed by : [address] [address] Basophil abs 0.1 0.0 - 0.1 K/cumm CERNER Comment:Testing performed by : [address] [address] Neutrophil pct 50.7 % CERNER Comment: Interpretive Data Percent cell count reference ranges are not reported, since discordance with absolute values may lead to misinterpretation of CBC data. Current Interpretive Data was last revised on 2017. Testing performed by: [address] [address] Imm gran pct 0.3 % CERNER Comment: Interpretive Data Percent cell count reference ranges are not reported, since discordance with absolute values may lead to misinterpretation of CBC data. Current Interpretive Data was last revised on 2017. Testing performed by: [address] [place]., [address] Lymphocyte pct 34.7 % [facility] Comment: Interpretive Data Percent cell count reference ranges are not reported, since discordance with absolute values may lead to misinterpretation of CBC data. Current Interpretive Data was last revised on 2017. Testing performed by: [facility], [address] [place] [address]., [address] Monocyte pct 8.5 % JAMAR Comment: Interpretive Data Percent cell count reference ranges are not reported, since discordance with absolute values may lead to misinterpretation of CBC data. Current Interpretive Data was last revised on 2017. Testing performed by: [facility], [address] [place] [address]., [address] Eosinophil pct 5.0 % JAMAR Comment: Interpretive Data Percent cell count reference ranges are not reported, since discordance with absolute values may lead to misinterpretation of CBC data. Current Interpretive Data was last revised on 2017. Testing performed by: [address] [address] Basophil pct 0.8 % JAMAR Comment: Interpretive Data Percent cell count reference ranges are not reported, since discordance with absolute values may lead to misinterpretation of CBC data. Current Interpretive Data was last revised on 2017. Testing performed by: [address] [address] Blood 04/21/2024 2:05 PM INDUSTRIAL ENERGY ENGINEER 04/21/2024 8:23 PM INDUSTRIAL ENERGY ENGINEER Stephanie Cole MD LAB BLOOD ORDERABLES Final Re sult JAMAR [id number] [place] [address] Department [place] [address] * (ABNORMAL) CBC with auto differential (04/21/2024 2:05 PM INDUSTRIAL ENERGY ENGINEER) WBC 8.8 3.8 - 9.9 K/cumm Comment:Testing performed by : [address] [address] Hgb 10.5(L) 11.9 - 15.5 g/dL [facility]ER CH Comment:Testing performed by : [address], [address] Hct 34.9(L) 35.6 - 45.5 % [facility]ER CH Comment:Testing performed by : [address], [address] Plt 427(H) 150 - 400 K/cumm CERNER CH Comment:Testing performed by : [address], [address] MPV 11.4 9.1 - 12.3 fL CERNER CH Comment:Testing performed by : [address], [address] RBC 3.59(L) 3.90 - 5.20 M/cumm CERNER CH Comment:Testing performed by : [address], [address] MCV 97.2(H) 81.3 - 96.4 fL CERNER CH Comment:Testing performed by : [address], [address] MCH 29.2 27.1 - 33.3 pg CERNER CH Comment:Testing performed by : [address], [address] MCHC 30.1(L) 32.3 - 35.7 g/dL [facility]ER CH Comment:Testing performed by : [address], [address] RDW CV 13.7 11.1 - 14.9 % CERNER CH Comment:Testing performed by : [address], [address] RDW SD 49.2(H) 35.7 - 48.1 fL [facility] CH Comment:Testing performed by : [address], [address] NRBC abs 0.00 0.00 - 0.01 K/cumm CERNER CH Comment:Testing performed by : [address], [address] Blood 04/21/2024 2:05 PM INDUSTRIAL ENERGY ENGINEER 04/21/2024 8:23 PM INDUSTRIAL ENERGY ENGINEER Stephanie Cole MD LAB BLOOD ORDERABLES Final Re sult Performing Organization Address [facility] Co de Phone Number [facility] [address] [facility] [place] [address] * Albumin Creatinine Ratio, Urine (04/21/2024 2:05 PM INDUSTRIAL ENERGY ENGINEER) Albumin Ur <12.0 mg/L Comment: Interpretive Data No reference range established. Current interpretive data was last revised 2018. Testing performed by: [address] [address] Creatinine Ur 51.0 mg/dL [facility] Comment: Interpretive Data No reference range established. Current interpretive data was last revised 2018. Testing performed by: [address] [address] Albumin Creatinine Ratio, Ur <24 1 - 29 mg/g [facility] Comment:Testing performed by : [address] [address] Urine 04/21/2024 2:05 PM INDUSTRIAL ENERGY ENGINEER 04/21/2024 8:23 PM INDUSTRIAL ENERGY ENGINEER Stephanie Cole MD LAB URINE ORDERABLES Final Re sult Performing Organization Address [facility] Co de Phone Number [facility] [phone] [facility] [place] [address] * (ABNORMAL) Hemoglobin A1c (04/21/2024 2:05 PM INDUSTRIAL ENERGY ENGINEER) Hgb A1C 6.4(H) 4.0 - 5.6 % Comment:Testing performed by : [address] [address] Estimated Average Glucose 137 mg/dL [facility] Comment: The ADA recommends reporting an estimated Average Glucose (eAG) with all Hemoglobin A1c results using the equation derived from a study of 507 normal and diabetic adults. Minority populations were underrepresented and children were not included. (Diabetes Care 31:4842-4164, 2008). The eAG is not equivalent to a fasting glucose. Testing performed by: [address] [address] Blood 04/21/2024 2:05 PM INDUSTRIAL ENERGY ENGINEER 04/21/2024 8:23 PM INDUSTRIAL ENERGY ENGINEER us Stephanie Cole MD LAB BLOOD ORDERABLES Final Re sult JAMAR [id number] [facility] Department [place] [address] * (ABNORMAL) Lipid panel (04/21/2024 2:05 PM INDUSTRIAL ENERGY ENGINEER) Cholesterol 191 30 - 199 mg/dL Comment: Interpretive Data Ages < or = 19 years Acceptable: <170 mg/dL Borderline high: 170-199 mg/dL High: >or= 200 mg/dL Ages > or = 20 years Desirable: <200 mg/dL Borderline high: 200-239 mg/dL High: >or= 240 mg/dL Literature References: 1. Expert Panel on Integrated Guidelines for Cardiovascular Health and Risk Reduction in Children and Adolescents. Pediatrics 2011;128:S213 2. NCEP Expert Panel. Circulation 2004;110:227 Current Interpretive Data was last revised on 2017. Testing performed by: [address] [address] Triglycerides 211(H) <=149 mg/dL JAMAR OSEI Comment: Interpretive Data Ages < or = 9 years Acceptable: <75 mg/dL Borderline high: 75-99 mg/dL High: >or= 100 mg/dL Ages 10 to 20 years Acceptable: <90 mg/dL Borderline high: 90-129 mg/dL High: >or= 130 mg/dL Ages > or = 20 years Desirable: <150 mg/dL Borderline high: 150-199 mg/dL High: 200-499 mg/dL Very high: >or= 499 mg/dL Literature References: 1. Expert Panel on Integrated Guidelines for Cardiovascular Health and Risk Reduction in Children and Adolescents. Pediatrics 2011;128:S213 2. NCEP Expert Panel. Circulation 2004;110:227 Current Interpretive Data was last revised on 2017. Testing performed by: [address] [address] HDL 42 >=40 mg/dL JAMAR OSEI Comment: Interpretive Data Ages < or = 19 years Acceptable: >45 mg/dL Borderline low: 40-45 mg/dL Low: <40 mg/dL Ages > or = 20 years Desirable: >or= 60 mg/dL Low: <40 mg/dL Literature References: 1. Expert Panel on Integrated Guidelines for Cardiovascular Health and Risk Reduction in Children and Adolescents. Pediatrics 2011;128:S213 2. NCEP Expert Panel. Circulation 2004;110:227 Current Interpretive Data was last revised on 2017. Testing performed by: [facility], [address] [place] [address]., [address] LDL, calculated 112 <=129 mg/dL JAMAR Comment: Interpretive Data Ages < or = 19 years Acceptable: <110 mg/dL Borderline high: 110-129 mg/dL High: >or= 130 mg/dL Ages > or = 20 years Optimal: <100 mg/dL Near optimal: 100-129 mg/dL Borderline high: 130-159 mg/dL High: >160 mg/dL Calculated using the Farshad LDL-C estimating equation. This equation was implemented on 2023. Prior to this date LDL-C was estimated using the Friedewald equation. Literature References: 1. Expert Panel on Integrated Guidelines for Cardiovascular Health and Risk Reduction in Children and Adolescents. Pediatrics 2011;128:S213 2. NCEP Expert Panel. Circulation 2004;110:227 3. Farshad Siddiqui et al. ISIAH Cardiol. 2020 July 17;5(5):540-548. doi: 10.1001/[email or web address] Current Interpretive Data was last revised on 2023. Testing performed by: [facility], [address] [place] [address]., [address] Non-HDL Cholesterol 149 mg/dL JAMAR Comment: Interpretive Data Ages < or = 19 years Acceptable: <120 mg/dL Borderline high: 120-144 mg/dL High: >145 mg/dL Ages > or = 20 years When triglycerides are >200 mg/dL, Non-HDL cholesterol is a secondary target of therapy with treatment goals that are 30 mg/dL greater than the LDL cholesterol target. Literature References: 1. Expert Panel on Integrated Guidelines for Cardiovascular Health and Risk Reduction in Children and Adolescents. Pediatrics 2011;128:S213 2. NCEP Expert Panel. Circulation 2004;110:227 Current Interpretive Data was last revised on 2017. Testing performed by: [address] [address] Chol/HDL ratio 5 CERNER Comment:Testing performed by : [address] [address] Blood 04/21/2024 2:05 PM INDUSTRIAL ENERGY ENGINEER 04/21/2024 8:23 PM INDUSTRIAL ENERGY ENGINEER Stephanie Cole MD LAB BLOOD ORDERABLES Final Re sult [address] Department [place] [address] * (ABNORMAL) Comprehensive metabolic panel (04/21/2024 2:05 PM INDUSTRIAL ENERGY ENGINEER) Sodium 136 135 - 145 mmol/L Comment:Testing performed by : [address] [address] Potassium, pl 4.6 3.3 - 4.9 mmol/L CERNER Comment:Testing performed by : [address] [address] Chloride 97 97 - 110 mmol/L C[facility]ER CH Comment:Testing performed by : [address] [address] CO2 26 22 - 32 mmol/L [facility] CH Comment:Testing performed by : [address] [address] Anion gap 13 2 - 15 mmol/L CERNER Comment:Testing performed by : [address] [address] BUN 14 6 - 25 mg/dL [facility] CH Comment:Testing performed by : [address] [address] Creatinine 0.98 0.60 - 1.10 mg/dL [facility] CH Comment:Testing performed by : [address] [address] Glucose 133 70 - 199 mg/dL CERNER Comment: Interpretive Data Fasting glucose >/= 126 mg/dl is diagnostic for diabetes. Fasting is defined as no caloric intake for at least 8 hours. Fasting glucose between 100 mg/dl to 125 mg/dl is diagnostic of prediabetes. In a patient with classic symptoms of hyperglycemia or hyperglycemic crisis, a random glucose >/= 200 mg/dl is diagnostic for diabetes. In the absence of unequivocal hyperglycemia, results should be confirmed by repeat testing. The classification and Diagnosis of Diabetes Diabetes Care 202; 46: S19-S40. Current interpretive data was last revised 2022. Testing performed by: [address] [address] Calcium 9.6 8.5 - 10.3 mg/dL CERNER Comment:Testing performed by : [address] [address] Bilirubin, total <0.2 0.1 - 1.2 mg/dL [facility] CH Comment:Testing performed by : [address] [address] Protein, pl 7.1 6.5 - 8.5 g/dL C[facility]ER CH Comment:Testing performed by : [address] [address] Albumin 4.1 3.5 - 5.0 g/dL [facility] CH Comment:Testing performed by : [address] [address] Alk phos 157(H) 40 - 130 Units/L [facility] CH Comment:Testing performed by : [address] [address] ALT 66(H) 7 - 45 Units/L [facility] CH Comment:Testing performed by : [address] [address] AST 53(H) 10 - 45 Units/L [facility] CH Comment:Testing performed by : [address] [address] Blood 04/21/2024 2:05 PM INDUSTRIAL ENERGY ENGINEER 04/21/2024 8:23 PM INDUSTRIAL ENERGY ENGINEER us Radha Werner NP LAB BLOOD ORDERABLES Final Resul t [address] Department [place] [address] * LUNG CANCER SCREENING (01/19/2024) Scribed Lung Cancer Screening Normal Impressions Stephanie Cole MD - 01/19/2024 Low-dose CT chest 01/19/2024 at [facility] negative for suspicious nodules. Narrative Stephanie Cole MD - 01/19/2024 See scanned report. us Flori [facility] [employer] Fin al Result * DIABETES EYE EXAM (01/18/2023) SCRIBED DIABETIC DILATED EYE EXAM Normal Impressions Stephanie Cole MD - 01/18/2023 Negative diabetic eye exam, Najma Mckinnon. Narrative Stephanie Cole MD - 01/18/2023 See scanned report us Aminah Cheung OD HEALTH MAINTENANCE Final Re sult * MAMMOGRAPHY (11/28/2022) Pathologist [facility] Mammography Normal Impressions Stephanie Cole MD - 11/28/2022 BiRADS 1, [facility]. Narrative Stephanie Cole MD - 11/28/2022 See scanned report. us Betzaida Subramanian NP HEALTH MAINTENANCE Final Result * Hepatitis C antibody (01/21/2019 11:48 AM INDUSTRIAL ENERGY ENGINEER) [facility] Hep C Ab Negative Negative J[facility]AR SING[facility] (HIRAM) Comment:Testing performed by : [facility], [address] [place] [address], [place]., [address] Blood specimen (specimen) 01/21/2019 11:48 AM INDUSTRIAL ENERGY ENGINEER 01/21/2019 7:22 PM INDUSTRIAL ENERGY ENGINEER us Aliya Huertas DO LAB MICROBIOLOGY - GENERAL ORDERABLES Final Result [facility] (HIRAM) 1 [facility] Department [place] [address] * COLONOSCOPY (04/23/2017) Colonoscopy Abnormal us Historical Provider HEALTH MAINTENANCE Final Result from Last 3 Months or Most Recently Relevant to Health Maintenance Insurance [employer] SENIOR SUPPLEMENT MEDICARE MEDICARE [facility] MEDICARE [facility] MEDICARE SUPPLEMENT Advance Directives For more information, please contact: [phone] * Full Code (Latest Code Status on File) Date Activated Date Inactivated Comments 06/27/2024 1:07 PM 06/27/2024 7:17 PM * Full Code Date Activated Date Inactivated Comments 12/19/2019 5:44 PM 12/21/2019 2:39 PM * Full Code Date Activated Date Inactivated Comments 11/19/2019 8:23 PM 11/21/2019 2:56 PM * Full Code Date Activated Date Inactivated Comments 11/21/2018 5:09 PM 11/24/2018 6:00 PM Care Teams Quotation Clerk Relationship Specialty Start Date End Date Stephanie Cole MD [address] [facility] [address] [place] [address] PCP - General Internal Medicine 10/14/21 [place] [address] [address] [facility] [address] [place] [address] Consulting Physician Endocrinology Diabetes & Metabolism 01/21/19 [place] [address] [address] [facility] [address] [place] [address] Referring Physician Psychiatry 01/21/19 [place] [address] [facility] [address] [place] [address] Consulting Physician Pain Management 09/25/22 Aminah Cheung OD [address] [place] [address] Consulting Physician Optometry 01/18/23 Flori Sotelo PA [address] [place] [address] Physician Collective Bargaining Specialist Pulmonary Disease 01/26/24 Kostas Lr MD [address] [place], [place] [id number] Consulting Physician Cardiology 02/22/24 Jay Marc MD [address] [facility] [address] [place] [phone] Surgeon Orthopedic Surgery 04/21/24
--- OUTSIDE RECORDS SUMMARY | 2024-07-14 13:58 | XMS_ITS | Clinical Summary ---
Author Organization [facility] Address [facility] [place] [address] Care Team Providers Care Heating And Cooling Technician Name Role Phone Unavailable Primary Care Provider Unavailabl e Social History Tobacco Use Types Packs/Day Years Used Date Smoking Tobacco: Never Assessed Comments Unknown Sex and Gender Information Value Date Recorded Sex Assigned at Not on file Legal Sex Female 7:11 PM CDT Gender Identity Not on file Sexual Orientation Not on file Plan of Treatment Health Maintenance Due Date Last Done Comments Cervical Cancer Screening Pa p Smear (Age 30 to 64) Every 3 Years 1960 Colorectal Cancer Screening Colonoscopy (10 Years) 1960 Annual Physical 1963 Hepatitis C 1978 DTaP, Tdap and Td Vaccines ( 1 - Tdap) 1979 Cervical Cancer Screening Pa p with HPV Testing (Age 30 to 64) Every 5 Years 1990 Cervical Cancer Screening with HPV 1990 Mammogram Screening 2000 Pneumococcal Vaccine: 50+ Ye ars (1 of 1 - PCV) 2010 Zoster Vaccines (1 of 2) 2010 COVID-19 Vaccine (2023-2 5 season) 2023 RSV Immunization or 60+ Years (1 - 1-dose 75+ series) 2035 Meningococcal B Vaccine Aged Out No l onger eligible based on patient's age to complete this topic Meningococcal Vaccine Aged Out No cl jean pierre eligible based on patient's age to complete this topic RSV Immunizations Under 20 Months Aged Out No longer eligible based on patient's age to complete this topic
--- OUTSIDE RECORDS SUMMARY | 2024-07-14 13:58 | XMS_ITS | Encounter Summary ---
Author Organization [facility] Address [address] [place] [address] Care Team Providers Care Clinical Studies Specialist Name Role Phone Naveed Fernandez MD Primary Care Provider [phone] Encounter Details Date Type Department Care Team (Late st Contact Info) Description 09/09/2003 Inpatient Historical HIS PATIENT IN A BED Franco Caraballo MD [address] [place] [address] FEMALE GENITAL SYMPTOMS NOS (Primary Dx) Social History Tobacco Use Types Packs/Day Years Used Date Smoking Tobacco: Never Assessed Comments Unknown Sex and Gender Information Value Date Recorded Sex Assigned at Female 01/14/2024 8:12 PM CDT Legal Sex Female 4:52 AM LENS POLISHER HAND Gender Identity Female 01/14/2024 8:12 PM CDT Sexual Orientation Choose not to disclose 2023 8:12 PM CDT documented as of this encounter Plan of Treatment Upcoming Encounters Date Type Department Care Team (Late st Contact Info) Description 07/22/2024 10:30 AM CDT Appointment [address] [facility] [address] [place] [address] Jay Marc MD [address] [place] [address] documented as of this encounter Visit Diagnoses Diagnosis Unspecified symptom associated with female genital organs- Primary documented in this encounter Additional Health Concerns Infection Onset Date Last Indicated Resolved Time R/O Respiratory 02/10/2024 02/10/2024 02/10/2024 8 :05 PM LENS POLISHER HAND R/O Respiratory 03/31/2024 03/31/2024 03/31/2024 5 :16 PM LENS POLISHER HAND COVID-19 03/31/2024 03/31/2024 04/20/2024 1:16 AM LENS POLISHER HAND R/O C. diff 04/01/2024 04/01/2024 04/02/2024 3:00 AM LENS POLISHER HAND documented as of this encounter Care Teams Clinical Studies Specialist Relationship Specialty Start Date End Date Naveed Fernandez MD [address] [place] [address] PCP - General Internal Medicine 04/21/23 Flori Mcdonald Nurse Practitioner Pulmonology 04/06/23 documented as of this encounter
--- OUTSIDE RECORDS SUMMARY | 2024-07-14 13:58 | XMS_ITS | Encounter Summary ---
Author Organization [facility] Healthcare Address [facility] [place] [address] Care Team Providers Care Recruiting Operations Consultant Name Role Phone Chago Randolph MD Unavailable Zachary Hurley MD Unavailable [phone] Naveed Fernnadez MD Primary Care Provider Osvaldo Feldman MD Unavailable Aminah Cheung OD Unavailable Flori Sotelo Unavailable Kostas Lr MD Unavailable Jay Marc MD Unavailable Encounter Details Date Type Department Care Team (Late st Contact Info) Description 05/20/2024 Results Follow-Up [facility] [address] [place] [address] Naveed Fernandez MD [address] [place] [address] Social History Tobacco Use Types Packs/Day Years [...] file 01/30/2020 How often do you attend advent or sikh serv ices? Never 01/30/2020 Do you belong to any clubs o r organizations such as advent groups, unions, fraternal or athletic groups, or [...] making you feel afraid or unsafe? Denies 02/06/2024 Comments No Sex and Gender Information Value Date Recorded Sex Assigned at Not on file Legal Sex Female 1:21 PM DIRECTOR OF ENVIRONMENTAL SERVICES Gender Identity Female 05/05/2022 8:09 AM DIRECTOR OF ENVIRONMENTAL SERVICES Sexual Orientation Straight 11/04/2018 1: 20 PM CDT Occupation Industry Job Start Date Job End Date disabled Not on file Not on file Not on file documented as of this encounter Plan of Treatment Not on file documented as of this encounter Visit Diagnoses Not on filedocumented in this encounter Care Teams Recruiting Operations Consultant Relationship Specialty Start Date End Date Naveed Fernandez MD [address] [facility] [address] [place] [address] PCP - General Internal Medicine 10/14/21 [place] [address] [address] [facility] [address] [place] [address] Consulting Physician Endocrinology Diabetes & Metabolism 01/21/19 [place] [address] [address] [facility] [address] [place] [address] Referring Physician Psychiatry 01/21/19 [place] [address] [facility] [address] [place] [address] Consulting Physician Pain Management 09/25/22 Aminah Cheung OD [address] [place] [address] Consulting Physician Optometry 01/18/23 Flori Sotelo PA [address] [place] [address] Physician [facility] Pulmonary Disease 01/26/24 Kostas Lr MD [address] [place] [address] Consulting Physician Cardiology 02/22/24 Jay Marc MD [address] [facility] [address] [place] [address] Surgeon Orthopedic Surgery 04/21/24 documented as of this encounter
--- OUTSIDE RECORDS SUMMARY | 2024-07-14 13:58 | XMS_ITS | Encounter Summary ---
Author Organization [facility] Address [address] [place] [address] Care Team Providers Care Educational Director Name Role Phone Naveed Fernandez MD Primary Care Provider [phone] Encounter Details Date Type Department Care Team (Late st Contact Info) Description 09/29/2003 Inpatient Historical HIS PATIENT IN A BED Jarad Neal MD NO ADDRESS ON FILE Franco Caraballo MD [address] [place] [address] ABDOMINAL PAIN UNSPEC SITE (Primary Dx) Social History Tobacco Use Types Packs/Day Years Used Date Smoking Tobacco: Never Assessed Comments Unknown Sex and Gender Information Value Date Recorded Sex Assigned at Female 01/14/2024 8:12 PM CDT Legal Sex Female 4:52 AM SUPPORT GROUP MANAGER Gender Identity Female 01/14/2024 8:12 PM CDT Sexual Orientation Choose not to disclose 2023 8:12 PM CDT documented as of this encounter Plan of Treatment Upcoming Encounters Date Type Department Care Team (Late st Contact Info) Description 07/22/2024 10:30 AM CDT [facility]ment [facility] [address] [address] [place] [address] Jay Marc MD [address] [facility] [address] [place] [address] documented as of this encounter Visit Diagnoses Diagnosis Abdominal pain, unspecified site- Primary documented in this encounter Additional Health Concerns Infection Onset Date Last Indicated Resolved Time R/O Respiratory 02/10/2024 02/10/2024 02/10/2024 8 :05 PM SUPPORT GROUP MANAGER R/O Respiratory 03/31/2024 03/31/2024 03/31/2024 5 :16 PM SUPPORT GROUP MANAGER COVID-19 03/31/2024 03/31/2024 04/20/2024 1:16 AM SUPPORT GROUP MANAGER R/O C. diff 04/01/2024 04/01/2024 04/02/2024 3:00 AM SUPPORT GROUP MANAGER documented as of this encounter Care Teams Educational Director Relationship Specialty Start Date End Date Naveed Fernandez MD [address] [place] [address] PCP - General Internal Medicine 04/21/23 Flori Mcdonald Nurse Practitioner Pulmonology 04/06/23 documented as of this encounter
--- OUTSIDE RECORDS SUMMARY | 2024-07-14 13:58 | XMS_ITS | Encounter Summary ---
Author Organization [facility] Address [address] [place] [address] Care Team Providers Care Ingredient Mixer Name Role Phone Naveed Fernandez MD Primary Care Provider [phone] Encounter Details Date Type Department Care Team (Late st Contact Info) Description 09/30/2003 Outpatient Historical Division of Neurology [address] [address] (Excluded Provider) [place] [address] [place] [address] Social History Tobacco Use Types Packs/Day Years Used Date Smoking Tobacco: Never Assessed Comments Unknown Sex and Gender Information Value Date Recorded Sex Assigned at Female 01/14/2024 8:12 PM CDT Legal Sex Female 4:52 AM AUTOMOTIVE SALESPERSON Gender Identity Female 01/14/2024 8:12 PM CDT Sexual Orientation Choose not to disclose 2023 8:12 PM CDT documented as of this encounter Plan of Treatment Upcoming Encounters Date Type Department Care Team (Late st Contact Info) Description 07/22/2024 10:30 AM CDT Appointment [facility] [address] [facility] [address] [place] [address] Jay Marc MD [address] [place] [address] documented as of this encounter Visit Diagnoses Not on filedocumented in this encounter Additional Health Concerns Infection Onset Date Last Indicated Resolved Time R/O Respiratory 02/10/2024 02/10/2024 02/10/2024 8 :05 PM AUTOMOTIVE SALESPERSON R/O Respiratory 03/31/2024 03/31/2024 03/31/2024 5 :16 PM AUTOMOTIVE SALESPERSON COVID-19 03/31/2024 03/31/2024 04/20/2024 1:16 AM AUTOMOTIVE SALESPERSON R/O C. diff 04/01/2024 04/01/2024 04/02/2024 3:00 AM AUTOMOTIVE SALESPERSON documented as of this encounter Care Teams Ingredient Mixer Relationship Specialty Start Date End Date Naveed Fernandez MD [address] [place] [address] PCP - General Internal Medicine 04/21/23 Flori Mcdonald Nurse Practitioner Pulmonology 04/06/23 documented as of this encounter
--- OUTSIDE RECORDS SUMMARY | 2024-07-14 13:58 | XMS_ITS | Encounter Summary ---
Author Organization [facility] Address [address] [place] [address] Care Team Providers Care Architectural Drafting Instructor Name Role Phone Naveed Fernandez MD Primary Care Provider [phone] Encounter Details Date Type Department Care Team (Late st Contact Info) Description 09/30/2003 Outpatient Historical [facility] [place] [facility] Support Services [facility] [address] [place] [address] [place] [address] David Young MD [address] [facility] [address] [address] Social History Tobacco Use Types Packs/Day Years Used Date Smoking Tobacco: Never Assessed Comments Unknown Sex and Gender Information Value Date Recorded Sex Assigned at Female 01/14/2024 8:12 PM CDT Legal Sex Female 4:52 AM PLASTIC SURGERY NURSE Gender Identity Female 01/14/2024 8:12 PM CDT Sexual Orientation Choose not to disclose 2023 8:12 PM CDT documented as of this encounter Plan of Treatment Upcoming Encounters Date Type Department Care Team (Late st Contact Info) Description 07/22/2024 10:30 AM CDT Appointment [facility] [address] [facility] [address] [place] [address] Jay Marc MD [address] [facility] [address] [place] [address] documented as of this encounter Visit Diagnoses Not on filedocumented in this encounter Additional Health Concerns Infection Onset Date Last Indicated Resolved Time R/O Respiratory 02/10/2024 02/10/2024 02/10/2024 8 :05 PM PLASTIC SURGERY NURSE R/O Respiratory 03/31/2024 03/31/2024 03/31/2024 5 :16 PM PLASTIC SURGERY NURSE COVID-19 03/31/2024 03/31/2024 04/20/2024 1:16 AM PLASTIC SURGERY NURSE R/O C. diff 04/01/2024 04/01/2024 04/02/2024 3:00 AM PLASTIC SURGERY NURSE documented as of this encounter Care Teams Architectural Drafting Instructor Relationship Specialty Start Date End Date Naveed Fernandez MD [address] [place] [address] PCP - General Internal Medicine 04/21/23 Flori Mcdonald Nurse Practitioner Pulmonology 04/06/23 documented as of this encounter
--- OUTSIDE RECORDS SUMMARY | 2024-07-14 13:58 | XMS_ITS | Encounter Summary ---
Author Organization [facility] Address [address] [place] [address] Care Team Providers Care Paint Dipper Name Role Phone Naveed Fernandez MD Primary Care Provider [phone] Encounter Details Date Type Department Care Team (Late st Contact Info) Description 06/04/2023 Telephone [facility] [address] [place] [address] [place] [address] [place] [address] Social History Tobacco Use Types Packs/Day Years Used Date Smoking Tobacco: Every Day Cigarettes 1 40 Passive Smoke Exposure: Past Smokeless Tobacco: Never Alcohol Use Standard Drinks/Week Comments No 0 [...] than three times a week 04/20/2023 Attends [employer] Not on file 04/20 Active Member [...] who hurts you emotionally and/or physically? No 06/04/2023 Food Insecurity Answer Date Recorded Social/Environmental Concerns No concerns Transportation Needs Answer Date Record ed Social/Environmental Concerns No concerns Housing Stability Answer Date Recorded Social/Environmental Concerns No concerns Utility Needs Answer Date Recorded Social/Environmental Concerns No concerns Comments No Sex and Gender Information Value Date Recorded Sex Assigned at Female 01/14/2024 8:12 PM CDT Legal Sex Female 4:52 AM PRINCIPAL RESEARCH ECONOMIST Gender Identity Female 01/14/2024 8:12 PM CDT Sexual Orientation Choose not to disclose 2023 8:12 PM CDT documented as of this encounter Miscellaneous Notes * Telephone Encounter - Rand Abrams RN - 06/04/2023 3:45 PM CDT Call out to [facility] and spoke with eliza Cooley vac placed on hold. documented in this encounter Plan of Treatment Upcoming Encounters Date Type Department Care Team (Late st Contact Info) Description 07/22/2024 10:30 AM CDT Appointment [facility] [place] [address] [facility] [address] [place] [address] Jay Marc MD [address] [facility] [address] [place] [address] documented as of this encounter Visit Diagnoses Not on filedocumented in this encounter Additional Health Concerns Infection Onset Date Last Indicated Resolved Time R/O Respiratory 02/10/2024 02/10/2024 02/10/2024 8 :05 PM PRINCIPAL RESEARCH ECONOMIST R/O Respiratory 03/31/2024 03/31/2024 03/31/2024 5 :16 PM PRINCIPAL RESEARCH ECONOMIST COVID-19 03/31/2024 03/31/2024 04/20/2024 1:16 AM PRINCIPAL RESEARCH ECONOMIST R/O C. diff 04/01/2024 04/01/2024 04/02/2024 3:00 AM PRINCIPAL RESEARCH ECONOMIST documented as of this encounter Care Teams Paint Dipper Relationship Specialty Start Date End Date Naveed Fernandez MD [address] [place] [address] PCP - General Internal Medicine 04/21/23 Flori Mcdonald Nurse Practitioner Pulmonology 04/06/23 documented as of this encounter
--- OUTSIDE RECORDS SUMMARY | 2024-07-14 13:58 | XMS_ITS | Referral Summary ---
Author Organization [facility] Address [address] [place] [address] Care Team Providers Care Chairman & Ceo Name Role Phone Sadie Randolph MD Unavailable Zachary Hurley MD Unavailable [phone] Stephanie Cole MD Primary Care Provider Osvaldo Feldman MD Unavailable Aminah Cheung OD Unavailable Flori Sotelo Unavailable Kostas Lr MD Unavailable [phone] Jay Marc MD Unavailable Encounters Date Type Department Care Team Description 07/14/2024 Telephone [facility] [address] [place] [address] Stephanie Cole MD 06/27/2024 10:00 AM CDT - 06/27/2024 11:05 AM CDT Surgery [facility] Cardiac Catheterization 1 [place] [address] Ran García MD LEFT HEART CATHETERIZATION WITH CORONARY ANGIOGRAPHY AND WITH OR WITHOUT LEFT VENTRICULOGRAM [id number] 06/27/2024 8:52 AM CDT - 06/27/2024 3:09 PM CDT Hospital Encounter [facility] Cardiac Catheterization 1 [place] [address] Ran García MD Other chest pain Discharge Disposition: Discharge to home or self care 06/26/2024 Telephone [facility] 1 [facility] [address] [place] [phone] Stephanie Cole MD 06/26/2024 Telephone [facility] at [address] [address] Stanley Reaves MA 06/26/2024 11:40 AM CDT - 06/26/2024 12:49 PM CDT Emergency [facility] Emergency Department 1 [place] [address] Discharge Disposition: Left without being seen 06/24/2024 Results Follow-Up [facility] [address] [address] Stephanie oCle MD 06/24/2024 9:55 AM CDT Lab [address] [address] Adult hypothyroidism; Vitamin D deficiency; Type 2 diabetes mellitus with hyperglycemia, without long-term current use of insulin (HCC); Elevated liver enzymes; Medication monitoring encounter 06/24/2024 9:50 AM CDT Lab [address] [address] Other chest pain 06/24/2024 Orders Only [facility] at [address] [address] Ran García MD Other chest pain (Primary Dx) 06/24/2024 9:00 AM CDT Office Visit [facility] at [address] [address] Bonita Cotto NP Hyperlipidemia associated with type 2 diabetes mellitus (HCC) (Primary Dx); Chest pain, unspecified type; Other chest pain; Hypertension associated with type 2 diabetes mellitus (HCC) 06/23/2024 Telephone [facility] [address] [place] [address] Stephanie Cole MD 06/23/2024 2:30 PM CDT Office Visit [facility] [address] [place] [address] Stephanie Cole MD Chronic midline low back pain without sciatica (Primary Dx); Chest pain, unspecified type; Other chest pain; Hyperlipidemia associated with type 2 diabetes mellitus (HCC); Tobacco use disorder 06/09/2024 Telephone [facility] [address] [place] [address] Thea Byrd RN 06/04/2024 Telephone [facility] [address] [place] [address] Stephanie Cole MD 05/23/2024 Telephone [facility] [address] [place] [address] Stephanie Cole MD 05/20/2024 Telephone [facility] [address] [place] [address] Stephanie Cole MD 05/20/2024 Results Follow-Up [facility] [address] [place] [address] Stephanie Cole MD 05/19/2024 2:55 PM BLIND HANGER Lab [facility] 1 [place] [address] Elevated liver enzymes 05/19/2024 Telephone [facility] [address] [place] [address] Thea Byrd RN 05/15/2024 1:30 PM BLIND HANGER Office Visit [facility] [address] [place] [address] Jenny Tidwell MD Vulvar abscess (Primary Dx); Furuncle of pubic region; Family history of breast cancer; Encounter for screening mammogram for breast cancer 05/13/2024 Telephone [facility] [address] [place] [address] Stephanie Cole MD 05/08/2024 Telephone [facility] [address] [place] [phone] Thea Byrd RN 04/23/2024 Telephone [facility] [address] [place] [address] Stephanie Cole MD Med Refill 04/22/2024 Telephone [facility] [address] [place] [phone] Stephanie Cole MD 04/21/2024 Orders Only [facility] [address] [place] [address] Radha Werner NP 04/21/2024 2:10 PM BLIND HANGER Lab [facility] [address] [place] [phone] Type 2 diabetes mellitus with hyperglycemia, without long-term current use of insulin (HCC); Class 3 severe obesity due to excess calories with serious comorbidity and body mass index (BMI) of 40.0 to 44.9 in adult (HCC); Hypertension associated with type 2 diabetes mellitus (HCC) 04/21/2024 1:30 PM BLIND HANGER Office Visit [facility] [address] [place] [address] Radha Werner NP Hospital discharge follow-up (Primary Dx); Chronic midline thoracic back pain; HTN (hypertension), benign; Class 3 severe obesity due to excess calories with serious comorbidity and body mass index (BMI) of 40.0 to 44.9 in adult (HCC); Tobacco use disorder from Last 3 Months Allergies Active Allergy Reactions Criticality Noted Date Comments [place] Other (See comments) Low severe shakes Other [...] without long-term current use of insulin (HCC) USE 1 TO CHECK GLUCOSE ONCE DAILY [...] without long-term current use of insulin (HCC) TAKE 1 TABLET BY MOUTH TWICE DAILY WITH MEALS 180 tablet 1 01/29/20 24 Active blood glucose diagnostic (glucose blood) stripIndications: Type 2 diabetes mellitus with hyperglycemia, without long-term current use of insulin (HCC) Use to test blood glucose once daily. [...] tablet (100 mg total) by mouth daily 04/27/19 23 2024 Discontinued(A lternate therapy) nortriptyline (PAMELOR) 10 mg capsuleIndication s:Cervicalgia Take 1 capsule (10 mg total) by mouth nightly 90 capsule 3 09/23/19 24 2024 Discontinued(T herapy completed) liothyronine (CYTOMEL) 5 mcg [...] 04/21/2024 Assessment & Plan (04/21/2024 8:29 PM BLIND HANGER): See hospital details above, testing and labs [...] kind. Assessment & Plan (04/21/2024 8:30 PM BLIND HANGER): Chronic, uncontrolled. See recent hospitalization for thoracic fusion as outlined above. Continue pain medicine and therapy as prescribed by Neurosurgery. Assessment & Plan (03/16/2024 6:36 PM BLIND HANGER): New symptom as of about two months ago, unremitting. She had evaluation in her spine surgeon's office and has either an arachnoid cyst or possibly a herniated disc in the midthoracic spine. Surgery is planned. She has already been cleared by Cardiology. Review of the record indicates recent elevation of WBC when she was at the [facility] ER with a bad headache. She eventually left without being seen due to the long wait. She denies running a fever. Other pertinent recent history includes an episode of pneumonia treated by Pulmonary Medicine at [facility]. Exam today is unremarkable. She will have a follow-up CBC before final approval to have her back surgery. Return here early as needed. Postoperative wound infection 05/17/2023 Overview (07/14/2023): After lower back surgery, polymicrobial, treated with wound drainage and wound VAC with resolution as of 07/12/2023. Hypertension associated with type 2 diabetes rosario litus 02/06/2022 Assessment & Plan (04/21/2024 8:21 PM BLIND HANGER): Chronic, at goal. BP stable in office today on current therapy. No acute findings on exam. BMP from 2 weeks ago unremarkable except for protein and liver enzymes. We will repeat today. Continue losartan and propranolol as prescribed. low salt diet. Assessment & Plan (03/07/2024 4:13 PM BLIND HANGER): Chronic, present for more than two years, currently controlled on losartan 50 mg twice daily and propranolol 20 mg every 12 hours. She denies chest pain or pressure. She has been cleared by Cardiology to have her thoracic spine surgery. Assessment & Plan (01/25/2024 1:45 PM BLIND HANGER): Chronic, present for more than two years, [...] 10/18/2022 Assessment & Plan (04/26/2022 4:37 PM BLIND HANGER): Blood pressure is in a good range [...] parameters Assessment & Plan (01/21/2019 11:39 AM BLIND HANGER): Clinically improved. Cont current meds. Hyperlipidemia associated [...] 05/19/2024 Assessment & Plan (01/25/2024 1:44 PM BLIND HANGER): Chronic, present for more than two years, status update needed. We ordered labs to be done at her convenience sometime next week. Follow up in six months. Assessment & Plan (07/12/2023 1:25 PM CDT): She is tolerating generic Lipitor. We will monitor with periodic labs. Assessment & Plan (04/12/2023 3:20 PM BLIND HANGER): She takes generic Lipitor, tolerating well. We [...] 10/18/2022 Assessment & Plan (04/26/2022 4:36 PM BLIND HANGER): She is on moderate dose generic Lipitor, [...] continued 7. Avoid alcohol sedatives and other ORCHARD PRUNER depression that may worsen sleep apnea and disrupt normal sleep architecture CPAP titration read 03/15/2022: Bilevel therapy with inspiratory positive airway pressure of 17 cm and expiratory positive pressure 13 cm was found to be best attempted settings. Assessment & Plan (10/26/2022 1:56 PM CDT): Continue BiPAP. Assessment & Plan (04/26/2022 4:46 PM BLIND HANGER): She is now on BiPAP. The mask [...] 150 mcg daily. Patient does have a medical screener, advised patient to follow-up with medical screener. She is taking a medication, Cytomel, which has a common side effect of diaphoresis. Encouraged patient to speak to her medical screener about possibly discontinuing this medication. Class 3 severe obesity due t o excess calories with serious comorbidity and body mass index (BMI) of 40.0 to 44.9 in adult 06/10/2020 Assessment & Plan (04/21/2024 8:22 PM BLIND HANGER): Chronic, uncontrolled. Down 9 lb in the last 6 weeks, BMI at 41.5. Exercise is limited due to chronic pain issues, she does not wish to discuss pharmacological treatment at this time. Encouraged continued heart healthy diet and exercise and portion control. Assessment & Plan (01/25/2024 1:41 PM BLIND HANGER): Chronic, present for many years, uncontrolled although there has been a slight decrease in her weight recently. We encouraged continued attention to her diet, and additional weight loss. Assessment & Plan (04/12/2023 3:21 PM BLIND HANGER): She put on quite a bit of weight due to inactivity. 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 We encouraged her efforts. Assessment & Plan (11/12/2022 3:16 PM CDT): We encouraged attention to her diet and significant weight loss. She is limited in activity level due to chronic pain. Assessment & Plan (05/11/2022 10:13 AM BLIND HANGER): She is on Ozempic for diabetes. This [...] recommended. Assessment & Plan (03/23/2021 2:09 PM BLIND HANGER): Weight reduction, daily exercise and dietary modifications recommended when feeling better. Assessment & Plan (03/17/2021 4:13 PM BLIND HANGER): Healthy, low carbohydrate lifestyle and exercise for 150min/week recommended Assessment & Plan (01/04/2021 6:01 PM CDT): Weight reduction, daily exercise and dietary modifications recommended. Assessment & Plan (08/06/2020 1:14 PM CDT): HPI: Condition is not at/near goal of BMI <25 A&P: Healthy, low carbohydrate lifestyle and exercise for 150min/week recommended Substitutions: Recommend tracking everything you put in your mouth on an sophie like Pandor[employer] or [employer] carries a zero net carb bread [...] in much longer they will become mushy [place] and/or coconut flour instead of regular flour [...] pork rinds For yogurt, try Two Good icelandic yogurt Use Pinterest for recipe ideas. Type in low carb... Assessment & Plan (06/10/2020 3:28 PM CDT): Healthy, low carbohydrate lifestyle and exercise for 150min/week recommended Hyperplastic polyp of sigmoid colon 01/01/2020 Overview (01/01/2020): Colonoscopy 04/23/2017 [facility] everywhere Chronic migraine without aur a without [...] endocrinology. Assessment & Plan (04/11/2021 2:40 PM BLIND HANGER): Check 25 OH vit D Adjust dose of Ergocalciferol accordingly Assessment & Plan (04/21/2020 4:14 PM BLIND HANGER): Continue Ergocalciferol, 50,000 international units weekly Assessment & Plan (02/05/2019 3:33 PM BLIND HANGER): Check 25 OH vit D Adjust dose of Ergocalciferol accordingly Type 2 diabetes mellitus with hyperglycemia 09/2017 Overview (07/12/2023): >>OVERVIEW FOR PREDIABETES WRITTEN ON 07/12/2023 4:26 AM BY STEPHANIE COLE MD Developed paige diabetes, late 2022-early 2023. Assessment & Plan (03/07/2024 4:15 PM BLIND HANGER): Chronic, present for many years, currently controlled with metformin 500 mg twice daily. The criterion for having surgery was a hemoglobin A1c less than 7.5%, and her recent value was 7.3%. She is working hard on her diet. Assessment & Plan (01/26/2024 3:20 PM BLIND HANGER): Chronic, present for about a year (previously [...] PREDIABETES WRITTEN ON 04/21/2020 4:17 PM BY SADIE RANDOLPH MD Importance of diet and exercise [...] PREDIABETES WRITTEN ON 04/11/2021 2:41 PM BY SADIE RANDOLPH MD Diet and exercise Retry Rybelsus Assessment & Plan (07/12/2023 4:27 AM CDT): [...] 08/16/2021 Assessment & Plan (04/24/2023 10:07 AM BLIND HANGER): She progressed from borderline diabetes to paige [...] covered Assessment & Plan (04/26/2022 4:51 PM BLIND HANGER): She does not check blood sugars at home. She is on Ozempic. She sees Dr. Randolph for follow-up of her endocrine conditions. Lab Results Component Value Date HGBA1C 6.7 02/06/2022 Assessment & Plan (02/06/2022 4:44 PM BLIND HANGER): Hba1c was Lab Results Component Value Date [...] disease) Assessment & Plan (01/25/2024 1:44 PM BLIND HANGER): Chronic, present for about 10 years, currently treated with albuterol metered- dose inhaler and svpdpbwwof-qohflegykbarqa-jpmbdvzjih maintenance inhaler. She also has a nebulizer used as needed. She has a pulmonary nurse practitioner at [facility] who sees her periodically. Continue same. Assessment & Plan (07/12/2023 1:24 PM CDT): She uses an inhaler as needed. She denies cough or shortness of breath. Lungs are clear and oxygen saturation is adequate. Continue same. Assessment & Plan (04/12/2023 3:18 PM BLIND HANGER): Symptoms are controlled with an albuterol inhaler and Symbicort. She managed to quit smoking which is great. We will see her back in three months. Assessment & Plan (04/26/2022 4:34 PM BLIND HANGER): She wheezes occasionally and has an albuterol [...] day. Assessment & Plan (01/25/2024 1:40 PM BLIND HANGER): Chronic, present for decades, currently uncontrolled despite taking tramadol as needed. Mostly she relies on acetaminophen or ibuprofen which he gets [id number]. She has follow ups with her back [...] excessive pain, but probably overdid it at [employer] in the pool the other day and [...] symptoms Assessment & Plan (04/11/2021 2:40 PM BLIND HANGER): Check TFTs Would recommend to increase LT3 to 5 mcg bid Will send rx after today labs Assessment & Plan (01/04/2021 6:01 PM CDT): Asymptomatic. Stable. Continue current prescription medications. Assessment & Plan (04/21/2020 4:16 PM BLIND HANGER): Continue Levothyroxine and Liothyronine, combination Importance of f taking the medication on an empty stomach, was explained again to the patient Assessment & Plan (12/19/2019 11:48 PM CDT): Continue levothyroxine Assessment & Plan (11/20/2019 2:29 AM CDT): Continue levothyroxine and Cytomel Assessment & Plan (02/05/2019 3:32 PM BLIND HANGER): Will check TSH and free T4 and [...] lacking. Assessment & Plan (01/25/2024 1:46 PM BLIND HANGER): Chronic, present for many years, currently reasonably well controlled on medications prescribed by her psychiatrist, Dr. Hurley, including quetiapine 600 mg at bedtime, lorazepam 1 mg 3 times daily as needed which she takes rarely, and desvenlafaxine 100 mg daily. Continue same and keep followups with psychiatry. Assessment & Plan (04/12/2023 3:21 PM BLIND HANGER): Her mood seems to be pretty stable [...] Barton. Assessment & Plan (05/11/2022 10:13 AM BLIND HANGER): She sees Dr. Hurley and is on [...] feasible. Assessment & Plan (04/21/2024 8:30 PM BLIND HANGER): Spent 5 minutes in discussion of tobacco cessation today and advised of health benefits. Assessment & Plan (07/14/2023 12:55 PM CDT): Unstable, worse. She quit smoking for her back surgery but unfortunately has resumed. We encouraged smoking cessation. Assessment & Plan (04/12/2023 3:21 PM BLIND HANGER): She quit smoking one month ago. I congratulated her on the accomplishment. She does have cravings, but is managing to abstain. Assessment & Plan (10/26/2022 1:58 PM CDT): Insurance would not approve recommended back surgery until she quit smoking and lost some weight. She is working on this but it is hard. Assessment & Plan (04/26/2022 4:50 PM BLIND HANGER): She is still smoking cigarettes and has no plans to quit. We nevertheless did encourage cessation. Assessment & Plan (07/07/2021 2:08 PM CDT): Advised patient to quit smoking. Assessment & Plan (01/04/2021 6:01 PM CDT): Advised patient to quit smoking. Pt declined stating that smoking is the only thing keeping her sane. Assessment & Plan (01/26/2020 8:13 PM BLIND HANGER): Advised patient to quit smoking. Assessment & [...] smoking. Assessment & Plan (01/21/2019 11:40 AM BLIND HANGER): Advised patient to quit. She states she's not ready to quit. Acute non intractable tension-type headache Resolved Problems Problem Noted Date Diagnosed Date Resolved Date Depression with anxiety 04/30/202404/19 Morbid obesity with BMI of 40.0-44.9, adult 03/27/2024 04/21/2024 Community acquired pneumonia of right upper lobe of lung 01/18/2024 03/07/2024 Assessment & Plan (01/26/2024 2:52 PM BLIND HANGER): New problem, started about a week ago, slightly improved. She had a low-dose CT scan of her chest at [place] with her pulmonary nurse practitioner. A right [...] Proteus (mirabilis) (morgani i) [facility] 05/17/2023 03/07/2024 Overview (03/07/2024): [facility] [place], details lacking. Furuncle of pubic region [...] dosing. Dysuria 05/09/2022 07/12/2023 Overview (07/12/2023): Saw SATISH Crawford, empiric Rx ordered. Assessment & Plan (05/09/2022 10:46 AM BLIND HANGER): Acute problem, present times about 4 days [...] ear. Assessment & Plan (04/26/2022 4:50 PM BLIND HANGER): For the past year or so, she is noted an itchy feeling at the external auditory meatus bilaterally and in the surrounding external ear. Exam shows a probable seborrheic dermatitis. We will have her start some ketoconazole cream. If not responding, she will let us know. Influenza A 03/23/2021 04/25/2022 Overview (04/25/2022): Saw Aliya Huertas D.O. Assessment & Plan (03/23/2021 2:08 PM BLIND HANGER): Reiterated treatment plan. Encouraged patient to increase [...] Plan (08/17/2020 5:56 PM CDT): Prescriptions sent. Pfxsv-ao-viensm exercises encouraged once pain level decreases. Return [...] in your mouth on an sophie like Pandorama or [employer] Jose Manueli carries a zero net carb bread If [...] in much longer they will become mushy [place] and/or coconut flour instead of regular flour [...] pork rinds For yogurt, try Two Good icelandic yogurt Use [employer] for recipe ideas. Type in low carb... Assessment & Plan (01/26/2020 8:12 PM BLIND HANGER): Weight reduction, daily exercise and dietary modifications [...] psychiatry Assessment & Plan (01/26/2020 8:10 PM BLIND HANGER): Clinically improved, managed by psychiatrist. Assessment & [...] recommended. Assessment & Plan (01/21/2019 11:41 AM BLIND HANGER): Worsening. Encouraged patient to decrease weight, increase [...] list. Assessment & Plan (01/26/2020 8:11 PM BLIND HANGER): Stable. Cont. Current meds. Managed by psychiatry. Assessment & Plan (12/19/2019 11:51 PM CDT): Continue home medications. Patient is on Xanax 2 mg t.i.d. p.r.n. which is not a new medication or dose for her. Assessment & Plan (11/20/2019 2:28 AM CDT): Continue p.r.n. Xanax Hypoxia 01/21/2019 Pneumonia due to infectious organism 01/21/2019 Immunizations Immunization Administration Dates Next Due Influenza, Quadrivalent, Spl it, Preservative Free, Intramuscular 05/07/2022,01/04/2021,12/21/2019,11/29,01/11/2018 Influenza, Trivalent, Recomb inant, Egg Free, Preservative Free, Antibiotic Free, IM (FLUBLOK) 01/09/2024 Influenza, Unspecified 12/18/2023,2020(Deferred: Patient Refused) Pfizer SARS-CoV-2 Monovalent Vaccination (12+ Yrs) PURPLE 06/06/2020,05/14/2020 Pneumococcal Conjugate Pcv20 05/07/2022 Pneumococcal Polysaccharide PPV23 2020,05/31/2014,04/18/2013,03/19 Pneumococcal, Unspecified 04/18/2013 TD Preservative Free 03/19/2013 Td, adsorbed 10/13/2013,03/19/2013 Tdap 10/13/2013 ZOSTER Recombinant 07/19/2022,05/07/2022 Social History Tobacco Use Types Packs/Day Years [...] file 01/30/2020 How often do you attend zoroastrian or confucianist serv ices? Never 01/30/2020 Do you belong to any clubs o r organizations such as zoroastrian groups, unions, fraternal or athletic groups, or [...] on file Legal Sex Female 1:21 PM BLIND HANGER Gender Identity Female 05/05/2022 8:09 AM BLIND HANGER Sexual Orientation Straight 11/04/2018 1: 20 PM CDT Occupation Industry Job Start Date Job End Date disabled Not on file Not on file Not on file Last Filed Vital Signs [...] 06/27/2024 9:11 AM CDT Plan of Treatment Not on file Medical Devices Implanted Type Area Rn Endocrinology Device Identifier Shelf Expiration Date Model / Serial / Lot [employer] Angio-Seal Vip 6fr Closere Device [id number] - [id number] Implanted:Qty: 1 on 06/27/2024 by Ran García MD at [facility] [employer] 11/11/2024 [id number] / / [id number] Procedures Procedure Name Priority Date/Time Associated Diagnosis [...] type HEPATIC FUNCTION PANEL Routine 2:56 PM BLIND HANGER Elevated liver enzymes EGFR Routine 04/21/2024 2:05 PM BLIND HANGER Class 3 severe obesity due to excess calories with serious comorbidity and body mass index (BMI) of 40.0 to 44.9 in adult (HCC) Hypertension associated with type 2 diabetes mellitus (HCC) DIFFERENTIAL AUTO Routine 04/21/2024 2:0 5 PM BLIND HANGER Type 2 diabetes mellitus with hyperglycemia, without long-term current use of insulin (HCC) COMPREHENSIVE METABOLIC PANEL Routine 04/21/2024 2:05 PM BLIND HANGER Class 3 severe obesity due to excess calories with serious comorbidity and body mass index (BMI) of 40.0 to 44.9 in adult (HCC) Hypertension associated with type 2 diabetes mellitus (HCC) ALBUMIN CREATININE RATIO, URINE Routine 04/21/2024 2:05 PM BLIND HANGER Type 2 diabetes mellitus with hyperglycemia, without long-term current use of insulin (HCC) CBC WITH AUTO DIFFERENTIAL Routine 04/21/2024 2:05 PM BLIND HANGER Type 2 diabetes mellitus with hyperglycemia, without long-term current use of insulin (HCC) HEMOGLOBIN A1C Routine 04/21/2024 2:05 PM BLIND HANGER Type 2 diabetes mellitus with hyperglycemia, without long-term current use of insulin (HCC) LIPID PANEL Routine 04/21/2024 2:05 PM BLIND HANGER Type 2 diabetes mellitus with hyperglycemia, without long-term current use of insulin (HCC) LUNG CANCER SCREENING Routine 01/19/2024 DIABETES EYE EXAM Routine 01/18/2023 MAMMOGRAPHY Routine 11/28/2022 HEPATITIS C ANTIBODY Routine 01/21/2019 11:48 AM BLIND HANGER Encounter for hepatitis C screening test for low risk patient HM COLONOSCOPY Routine 04/23/2017 from Last 3 Months or Most Recently Relevant to Health Maintenance Results * POCT glucose (06/27/2024 1:43 PM CDT) Glucose, POC 115 70 - 199 mg/dL Blood 06/27/2024 1:43 PM CDT 06/27/2024 1:43 PM CDT us Ran García MD LAB POCT ORDERABLES - DEVICE Fi nal Result Performing Organization Address City/State/[facility] Co de Phone Number JAMAR SINGH ([place]) 1 [facility] [place] [address] * LEFT HEART CATHETERIZATION WITH CORONARY ANGIOGRAPHY AND WITH AND WITHOUT LEFT VENTRICULOGRAM (06/27/2024 12:10 PM CDT) Anatomical Region Laterality Modality X-Ray Angiograph y 06/27/2024 Narrative 06/30/2024 7:19 AM CDT [employer] Job ID: [id number] [employer] Document ID: [id number] Dictated date/time: [id number] CARDIAC CATHETERIZATION REPORT A 64-year-old with recurrent episodes of chest pain. She also had severe back pain. Presentation was concerning for angina. She was referred for catheterization. INDICATION FOR PROCEDURE Chest pain. PROCEDURES PERFORMED Left heart catheterization, selective coronary angiography, left ventriculography, vascular access closure. After obtaining informed consent, the patient was brought to the cardiac mechanical shop laborer suite. She was prepped and draped in the usual fashion. Conscious sedation was administered by the mechanical shop laborer staff under my supervision. A total of 8 mg of Versed, 300 mcg of fentanyl and 50 mg of Benadryl were given in divided doses. See procedure log for details. Total sedation time was 22 minutes. A 6-Lithuanian sheath was inserted in the right femoral [...] Consider noncardiac cause of chest pain. Ran García MD Job ID/Internal Job ID: [id number] Ran García MD CV CARDIAC CATH PROCEDURES Aziza l Result * POCT glucose (06/27/2024 9:13 AM CDT) Glucose, POC 197 70 - 199 mg/dL Blood 06/27/2024 9:13 AM CDT 06/27/2024 9:13 AM CDT us Ran García MD LAB POCT ORDERABLES - DEVICE Fi nal Result JAMAR SINGH ([place]) 1 [facility] [place] [address] * XR Chest 1 Vw Portable (if [...] Manfred Santos M.D. RB: ROLANDO Report ID: [id number] Reading Location: [place] [address] Procedure Note Manfred Santos MD - 06/26/2024 [...] Manfred Santos M.D. RB: ROLANDO Report ID: [id number] Reading Location: [id number] Kaitlin Muñoz MD IMG XR PROCEDURES F [...] BLOOD ORDERABLE S Final Result JAMAR [facility] [place] 1 [facility] [place] [address] * eGFR (06/26/2024 11:53 AM CDT) eGFR >90 >=60 mL/min/1. 73 [...] LAB BLOOD ORDERABLE S Final Result JAMAR [facility] ([place]) 1 [facility] [place] [address] * (ABNORMAL) Differential, auto (06/26/2024 11:53 AM CDT) Neutrophil abs 6.16 1.50 - 6.50 K/cumm [...] MD LAB BLOOD ORDERABLE S Final Result [facility] ([place]) 1 [facility] [place] [address] * (ABNORMAL) CBC with auto differential (06/26/2024 [...] abs 0.00 0.00 - 0.01 K/cumm [facility] ([place]) Blood Venous blood specimen / Unknown 06/26/2024 11:53 AM CDT 06/26/2024 11:57 AM CDT Kaitlin Muñoz MD LAB BLOOD ORDERABLE S Final Result [facility] ([place]) 1 [facility] Department [place] [address] * (ABNORMAL) Comprehensive metabolic panel (06/26/2024 11:53 [...] MD LAB BLOOD ORDERABLE S Final Result Performing Organization Address City/[facility] Co de Phone Number J[facility]AR [facility] ([place]) 1 [facility] Department [place] [address] * ECG 12 lead (06/26/2024 11:47 AM CDT) 06/26/2024 11:4 7 AM CDT Narrative [facility] - 06/26/2024 12:19 PM CDT Vent Rate: 80 bpm RR Interval: 748 msec IN Interval: 156 msec QRS Duration: 94 msec QT Interval: 343 msec QTC Interval: 379 msec P-R-T [place]: 56 - 60 - 49 degrees IMPRESSION: SINUS RHYTHM NORMAL ECG NO CHANGE FROM PREVIOUS TRACING NOTED Electronically Signed By: Ran García MD Kaitlin Muñoz MD ECG ORDERABLES Fin al Result Performing Organization Address [facility] Co de Phone Number [facility] [employer] [facility] * eGFR (06/24/2024 10:04 AM [...] of Race in Diagnosing Kidney Disease, JASN 2021). The CKD-EPI equation should not be used for patients with unstable renal function and has not been validated in children and those over 70. Current interpretive data was last reviewed 2021. Blood 06/24/2024 10:0 4 AM CDT 06/24/2024 10:52 AM CDT us Stephanie Cole MD LAB BLOOD ORDERABLES Final Re sult Performing Organization Address [facility]/ZIP Co de Phone Number [facility] ([place]) 1 [facility] [employer] [place] [address] * eGFR (06/24/2024 10:04 AM CDT) eGFR [...] of Race in Diagnosing Kidney Disease, JASN 2021). The CKD-EPI equation should not be used for patients with unstable renal function and has not been validated in children and those over 70. Current interpretive data was last reviewed 2021. Blood 06/24/2024 10:0 4 AM CDT 06/24/2024 10:52 AM CDT us Ran García MD LAB BLOOD ORDERABLES Final Resu lt [facility] ([place]) [address] Department [place] [address] * (ABNORMAL) Differential, auto (06/24/2024 10:04 AM CDT) Neutrophil abs 6.66(H) 1.50 - 6.50 K/cumm Imm gran abs 0.05 0.00 - 0.10 K/cumm [facility] ([place]) Lymphocyte abs 2.19 0.80 - 3.30 K/cumm [facility] ([place]) Monocyte abs 0.81(H) 0.20 - 0.80 K/cumm [facility] ([place]) Eosinophil abs 0.29 0.00 - 0.50 K/cumm [facility] ([place]) Basophil abs 0.08 0.00 - 0.10 K/cumm [facility] ([place]) Neutrophil pct 66.1 % [facility] ([place]) Comment: Interpretive Data Percent cell count reference ranges are not reported, since discordance with absolute values may lead to misinterpretation of CBC data. Current Interpretive Data was last revised on 2017. Imm gran pct 0.5 % [facility] ([place]) Comment: Interpretive Data Percent cell count reference ranges are not reported, since discordance with absolute values may lead to misinterpretation of CBC data. Current Interpretive Data was last revised on 2017. Lymphocyte pct 21.7 % [facility] ([place]) Comment: Interpretive Data Percent cell count reference ranges are not reported, since discordance with absolute values may lead to misinterpretation of CBC data. Current Interpretive Data was last revised on 2017. Monocyte pct 8.0 % [facility] ([place]) Comment: Interpretive Data Percent cell count reference ranges are not reported, since discordance with absolute values may lead to misinterpretation of CBC data. Current Interpretive Data was last revised on 2017. Eosinophil pct 2.9 % [facility] ([place]) Comment: Interpretive Data Percent cell count reference ranges are not reported, since discordance with absolute values may lead to misinterpretation of CBC data. Current Interpretive Data was last revised on 2017. Basophil pct 0.8 % [facility] ([place]) Comment: Interpretive Data Percent cell count reference ranges are not reported, since discordance with absolute values may lead to misinterpretation of CBC data. Current Interpretive Data was last revised on 2017. Blood 06/24/2024 10:0 4 AM CDT 06/24/2024 10:52 AM CDT Ran García MD LAB BLOOD ORDERABLES Final Resu lt [facility] ([place]) 1 [facility] [place] [address] * (ABNORMAL) CBC with auto differential (06/24/2024 10:04 AM CDT) WBC 10.08(H) 3.80 - 9.90 K/cumm Hgb 12.3 11.9 - 15.5 g/dL [facility] ([place]) Hct 39.7 35.6 - 45.5 % [facility] ([place]) Plt 342 150 - 400 K/cumm [facility] ([place]) MPV 11.2 9.1 - 12.3 fL [facility] ([place]) RBC 4.54 3.90 - 5.20 M/cumm [facility] ([place]) MCV 87.4 81.3 - 96.4 fL [facility] ([place]) MCH 27.1 27.1 - 33.3 pg [facility] ([place]) MCHC 31.0(L) 32.3 - 35.7 g/dL [facility] ([place]) RDW CV 14.5 11.1 - 14.9 % [facility] ([place]) RDW SD 46.0 35.7 - 48.1 fL [facility] ([place]) NRBC abs 0.00 0.00 - 0.01 K/cumm [facility] ([place]) Blood 06/24/2024 10:0 4 AM CDT 06/24/2024 10:52 AM CDT us Ran García MD LAB BLOOD ORDERABLES Final Resu lt [facility] ([place]) 1 [place] [address] * Albumin Creatinine Ratio, Urine (06/24/2024 10:04 AM CDT) [facility] Albumin Ur <12.0 mg/L Comment: Interpretive Data No reference range established. Current interpretive data was last revised 2018. Testing performed by: [facility], [address] [place] [address]., [address] Creatinine Ur 61.5 mg/dL [facility] ([place]) Comment: Interpretive Data No reference range established. Current interpretive data was last revised 2018. Testing performed by: [facility], [address] [place] [address]., [address] Albumin Creatinine Ratio, Ur <20 1 - 29 mg/g [facility] ([place]) Comment:Testing performed by : [facility], [address] [place] [address]., [address] Urine 06/24/2024 10:0 4 AM CDT 06/24/2024 2:22 PM CDT Stephanie Cole MD LAB URINE ORDERABLES Final Re sult Performing Organization Address City/[facility]/ZIP Co de Phone Number JAMAR [facility] ([place]) 1 [place] [address] * Vitamin D 25 hydroxy (06/24/2024 10:04 AM CDT) [facility] Vitamin D 25-OH 36 30 - 80 ng/mL Blood 06/24/2024 10:0 4 AM CDT 06/24/2024 10:52 AM CDT Stephanie Cole MD LAB BLOOD ORDERABLES Final Re sult JAMAR [facility] ([place]) 1 [place] [address] * Protime-INR (06/24/2024 10:04 AM CDT) PT 11.8 9.7 - 13.0 sec JAMAR SINGH ([place]) INR 1.09 0.90 - 1.20 JAMAR [facility] ([place]) Comment: Interpretive data Oral anticoagulant therapeutic ranges: Venous thromboembolism prophylaxis or treatment: 2.0-3.0 CARDIOLOGY Standard range: 2.0-3.0 High-intensity range: 2.5-3.5 Refer to indication-specific guidelines for appropriate target ranges for prosthetic heart valve replacement. Current interpretive data was last revised on 2019. Blood 06/24/2024 10:0 4 AM CDT 06/24/2024 10:52 AM CDT Ran García MD LAB BLOOD ORDERABLES Final Resu lt Performing Organization Address [facility] Co de Phone Number JAMAR SINGH ([place]) [address] [place] [address] [email or web address] [address] * T3, free (06/24/2024 10:04 AM CDT) Free T3 3.7 2.0 - 4.4 pg/mL Comment:Testing performed by : [facility], [address] [place] [address], [id number] Blood 06/24/2024 10:0 4 AM CDT 06/24/2024 2:22 PM CDT Stephanie Cole MD LAB BLOOD ORDERABLES Final Re sult Performing Organization Address [facility] Co de Phone Number JAMAR SINGH ([place]) 1 [facility] [email or web address] [address] * TSH (06/24/2024 10:04 AM CDT) Thyroid Stimulating Hormone 0.62 0.30 - 4.20 mcIUnit/mL Blood 06/24/2024 10:0 4 AM CDT 06/24/2024 10:52 AM CDT Stephanie Cole MD LAB BLOOD ORDERABLES Final Re sult Performing Organization Address [facility] Co de Phone Number JAMAR SINGH ([place]) 1 [place] [address] * (ABNORMAL) T4, free (06/24/2024 10:04 AM CDT) Free T4 0.88(L) 0.90 - 1.70 ng/dL Blood 06/24/2024 10:0 4 AM CDT 06/24/2024 10:52 AM CDT Stephanie Cole MD LAB BLOOD ORDERABLES Final Re sult Performing Organization Address [facility] de Phone Number JAMAR SINGH ([place]) 1 [place] [address] * (ABNORMAL) Hemoglobin A1c (06/24/2024 10:04 AM CDT) [facility] Hgb A1C 6.9(H) 4.0 - 5.6 % Estimated Average Glucose 151 mg/dL JAMAR SINGH ([place]) Comment: The ADA recommends reporting an estimated Average Glucose (eAG) with all Hemoglobin A1c results using the equation derived from a study of 507 normal and diabetic adults. Minority populations were underrepresented and children were not included. (Diabetes Care 31:5622-3512, 2008). The eAG is not equivalent to a fasting glucose. Blood 06/24/2024 10:0 4 AM CDT 06/24/2024 10:52 AM CDT Stephanie Cole MD LAB BLOOD ORDERABLES Final Re sult Performing Organization Address [facility] Co de Phone Number JAMAR SINGH ([place]) 1 [place] [address] * Bilirubin, direct (06/24/2024 10:04 AM CDT) Pathologist [facility] Bilirubin, direct <0.1 0.1 - 0.3 mg/dL Blood 06/24/2024 10:0 4 AM CDT 06/24/2024 10:52 AM CDT us Stephanie Cole MD LAB BLOOD ORDERABLES Final Re sult JAMAR SINGH ([place]) 1 [facility] [place] [address] * (ABNORMAL) Lipid panel (06/24/2024 10:04 AM [...] on 2023. Non-HDL Cholesterol 86 mg/dL JAMAR SINGH ([place]) Comment: Interpretive Data [...] last revised on 2017. Chol/HDL ratio 3 ANDER SINGH ([place]) Blood 06/24/2024 10:0 4 AM CDT 06/24/2024 10:52 AM CDT Stephanie Cole MD LAB BLOOD ORDERABLES Final Re sult [facility] ([place]) 1 [facility] [place] [address] * (ABNORMAL) Comprehensive metabolic panel (06/24/2024 10:04 AM CDT) Sodium 134(L) 135 - 145 mmol/L Potassium, pl 4.4 3.3 - 4.9 mmol/L [facility] ([place]) Chloride 98 97 - 110 mmol/L [facility] ([place]) CO2 25 22 - 32 mmol/L [facility] ([place]) Anion gap 12 2 - 15 mmol/L [facility] ([place]) BUN 11 6 - 25 mg/dL [facility] ([place]) Creatinine 0.68 0.60 - 1.10 [...] BLOOD ORDERABLES Final Re sult JAMAR SINGH ([place]) 1 [facility] [employer] [email or web address] [address] * (ABNORMAL) Basic metabolic panel (06/24/2024 10:04 [...] 2022. Calcium 9.4 8.5 - 10.3 mg/dL [facility] ([place]) Blood 06/24/2024 10:0 4 AM CDT 06/24/2024 10:52 AM CDT us Ran García MD LAB BLOOD ORDERABLES Final Resu lt JAMAR SINGH ([place]) 1 [facility] [email or web address] [address] * ECG 12-LEAD (06/23/2024 2:23 PM CDT) [...] * Hepatic function panel (05/19/2024 2:56 PM BLIND HANGER) Bilirubin, total 0.2 0.1 - 1.2 mg/dL [...] Hemolyzed S pecimen Blood 05/19/2024 2:56 PM BL[facility]ANGER 05/19/2024 3:53 PM BL[facility] [employer]ANGER Stephanie Cole MD LAB BLOOD ORDERABLES Final Re sult [facility] ([place]) 1 [facility] [place] [address] * eGFR (04/21/2024 2:05 PM BLIND HANGER) eGFR 64 >=60 mL/min/1. 73 m2 Comment: [...] was last reviewed 2021. Testing performed by: [address] [address] Blood 04/21/2024 2:05 PM BLIND HANGER 04/21/2024 9:12 PM BL[employer] HANGER us Radha Werner [employer] TESTING TECHNICIAN LAB BLOOD ORDERABLES Final Resul t JAMAR [address] Department [place] [address] * Differential, auto (04/21/2024 2:05 PM BLIND HANGER) Neutrophil abs 4.5 1.5 - 6.5 K/cumm Comment:Testing performed by : [address] [address] Imm gran abs 0.0 0.0 - 0.1 K/cumm JAMAR OSEI Comment:Testing performed by : [address] [address] Lymphocyte abs 3.1 0.8 - 3.3 K/cumm JAMAR Comment:Testing performed by : [address] [address] Monocyte abs 0.8 0.2 - 0.8 K/cumm JAMAR Comment:Testing performed by : [facility] [address] [place] [address]., [address] Eosinophil abs 0.4 0.0 - 0.5 K/cumm [facility] CH Comment:Testing performed by : [facility], [address] [place] [address]., [address] Basophil abs 0.1 0.0 - 0.1 K/cumm C[facility]ER CH Comment:Testing performed by : [address] [address] Neutrophil pct 50.7 % [facility] CH Comment: Interpretive Data Percent cell count reference ranges are not reported, since discordance with absolute values may lead to misinterpretation of CBC data. Current Interpretive Data was last revised on 2017. Testing performed by: [address] [address] Imm gran pct 0.3 % [facility] CH Comment: Interpretive Data Percent cell count reference ranges are not reported, since discordance with absolute values may lead to misinterpretation of CBC data. Current Interpretive Data was last revised on 2017. Testing performed by: [address] [address] Lymphocyte pct 34.7 % [facility] CH Comment: Interpretive Data Percent cell count reference ranges are not reported, since discordance with absolute values may lead to misinterpretation of CBC data. Current Interpretive Data was last revised on 2017. Testing performed by: [address] [address] Monocyte pct 8.5 % [facility] CH Comment: Interpretive Data Percent cell count reference ranges are not reported, since discordance with absolute values may lead to misinterpretation of CBC data. Current Interpretive Data was last revised on 2017. Testing performed by: [address] [address] Eosinophil pct 5.0 % [facility] CH Comment: Interpretive Data Percent cell count reference ranges are not reported, since discordance with absolute values may lead to misinterpretation of CBC data. Current Interpretive Data was last revised on 2017. Testing performed by: [address] [address] Basophil pct 0.8 % [facility] CH Comment: Interpretive Data Percent cell count reference ranges are not reported, since discordance with absolute values may lead to misinterpretation of CBC data. Current Interpretive Data was last revised on 2017. Testing performed by: [address] [address] Blood 04/21/2024 2:05 PM BLIND HANGER 04/21/2024 8:23 PM BLIND [employer]ANGER us Stephanie Cole MD LAB BLOOD ORDERABLES Final Re sult [address] [place] [address] * (ABNORMAL) CBC with auto differential (04/21/2024 2:05 PM BLIND HANGER) WBC 8.8 3.8 - 9.9 K/cumm Comment:Testing performed by : [address], [address] Hgb 10.5(L) 11.9 - 15.5 g/dL CERNER Comment:Testing performed by : [address], [address] Hct 34.9(L) 35.6 - 45.5 % [facility]ER CH Comment:Testing performed by : [address], [address] Plt 427(H) 150 - 400 K/cumm CERNER CH Comment:Testing performed by : [address], [address] MPV 11.4 9.1 - 12.3 fL C[facility]ER CH Comment:Testing performed by : [address], [address] RBC 3.59(L) 3.90 - 5.20 M/cumm CERNER CH Comment:Testing performed by : [address], [address] MCV 97.2(H) 81.3 - 96.4 fL CERNER CH Comment:Testing performed by : [address], [address] MCH 29.2 27.1 - 33.3 pg CERNER CH Comment:Testing performed by : [address] [address] MCHC 30.1(L) 32.3 - 35.7 g/dL JAMAR Comment:Testing performed by : [address] [address] RDW CV 13.7 11.1 - 14.9 % JAMAR Comment:Testing performed by : [facility], [address] [place] [address]., [address] RDW SD 49.2(H) 35.7 - 48.1 fL JAMAR Comment:Testing performed by : [facility], [address] [place] [address]., [address] NRBC abs 0.00 0.00 - 0.01 K/cumm JAMAR Comment:Testing performed by : [address], [address] Blood 04/21/2024 2:05 PM BLIND HANGER 04/21/2024 8:23 PM BLIND HANGER Stephanie Cole MD LAB BLOOD ORDERABLES Final Re sult [address] Department [place] [address] * Albumin Creatinine Ratio, Urine (04/21/2024 2:05 PM BLIND HANGER) Albumin Ur <12.0 mg/L Comment: Interpretive Data No reference range established. Current interpretive data was last revised 2018. Testing performed by: [address] [address] Creatinine Ur 51.0 mg/dL [facility] Comment: Interpretive Data No reference range established. Current interpretive data was last revised 2018. Testing performed by: [address] [address] Albumin Creatinine Ratio, Ur <24 1 - 29 mg/g JAMAR Comment:Testing performed by : [address] [address] Urine 04/21/2024 2:05 PM BLIND HANGER 04/21/2024 8:23 PM BLIND HANGER us Stephanie Cole MD LAB URINE ORDERABLES Final Re sult Performing Organization Address [facility] Co de Phone Number JAMAR [address] [facility] [place] [address] * (ABNORMAL) Hemoglobin A1c (04/21/2024 2:05 PM BLIND HANGER) Hgb A1C 6.4(H) 4.0 - 5.6 % Comment:Testing performed by : [address] [address] Estimated Average Glucose 137 mg/dL [facility] Comment: The ADA recommends reporting an estimated Average Glucose (eAG) with all Hemoglobin A1c results using the equation derived from a study of 507 normal and diabetic adults. Minority populations were underrepresented and children were not included. (Diabetes Care 31:6608-5484, 2008). The eAG is not equivalent to a fasting glucose. Testing performed by: [address] [address] Blood 04/21/2024 2:05 PM BLIND HANGER 04/21/2024 8:23 PM BLIND HANGER us Stephanie Cole MD LAB BLOOD ORDERABLES Final Re sult Performing Organization Address [facility] Co de Phone Number JAMAR [address] [facility] Department [place] [address] * (ABNORMAL) Lipid panel (04/21/2024 2:05 PM BLIND HANGER) Cholesterol 191 30 - 199 mg/dL Comment: [...] last revised on 2017. Testing performed by: [facility], [address] [place] [address]., [address] Triglycerides 211(H) <=149 mg/dL JAMAR Comment: Interpretive Data Ages < [...] last revised on 2017. Testing performed by: [address] [address] HDL 42 >=40 mg/dL JAMAR Comment: Interpretive Data Ages < [...] last revised on 2017. Testing performed by: [facility], [address] [place] [address]., [address] LDL, calculated 112 <=129 mg/dL JAMAR Comment: Interpretive Data Ages < or = 19 years Acceptable: <110 mg/dL Borderline high: 110-129 mg/dL High: >or= 130 mg/dL Ages > or = 20 years Optimal: <100 mg/dL Near optimal: 100-129 mg/dL Borderline high: 130-159 mg/dL High: >160 mg/dL Calculated using the Yen LDL-C estimating equation. This equation was implemented on 2023. Prior to this date LDL-C was estimated using the Friedewald equation. Literature References: 1. Expert Panel on Integrated Guidelines for Cardiovascular Health and Risk Reduction in Children and Adolescents. Pediatrics 2011;128:S213 2. NCEP Expert Panel. Circulation 2004;110:227 3. Farshad M et al. ISIAH Cardiol. 2020 July 17;5(5):540-548. doi: 10.1001/jamacardio.2020.0013 Current Interpretive Data was last revised on 2023. Testing performed by: [address] [address] Non-HDL Cholesterol 149 mg/dL JAMAR Comment: Interpretive [...] last revised on 2017. Testing performed by: [address] [address] Chol/HDL ratio 5 JAMAR Comment:Testing performed by : [address] [address] Blood 04/21/2024 2:05 PM BLIND HANGER 04/21/2024 8:23 PM BLIND HANGER Stephanie Cole MD LAB BLOOD ORDERABLES Final Re sult JAMAR [id number] [facility] [place] [address] * (ABNORMAL) Comprehensive metabolic panel (04/21/2024 2:05 PM BLIND HANGER) [facility] Sodium 136 135 - 145 mmol/L Comment:Testing performed by : [address] [address] Potassium, pl 4.6 3.3 - 4.9 mmol/L JAMAR Comment:Testing performed by : [address] [address] Chloride 97 97 - 110 mmol/L C[facility]ER CH Comment:Testing performed by : [address] [address] CO2 26 22 - 32 mmol/L [facility] CH Comment:Testing performed by : [address], [address] Anion gap 13 2 - 15 mmol/L [facility] CH Comment:Testing performed by : [address], [address] BUN 14 6 - 25 mg/dL [facility] CH Comment:Testing performed by : [address], [address] Creatinine 0.98 0.60 - 1.10 mg/dL [facility] CH Comment:Testing performed by : [address], [address] Glucose 133 70 - 199 mg/dL [facility] Comment: Interpretive Data Fasting glucose >/= 126 [...] was last revised 2022. Testing performed by: [address] [address] Calcium 9.6 8.5 - 10.3 mg/dL [facility] CH Comment:Testing performed by : [address] [address] Bilirubin, total <0.2 0.1 - 1.2 mg/dL [facility] CH Comment:Testing performed by : [address] [address] Protein, pl 7.1 6.5 - 8.5 g/dL [facility] CH Comment:Testing performed by : [address], [address] Albumin 4.1 3.5 - 5.0 g/dL CERNER CH Comment:Testing performed by : [facility] [address] [place] [address]., [id number] Alk phos 157(H) 40 - 130 Units/L CERNER CH Comment:Testing performed by : [facility], [address] [place] [address]., [id number] ALT 66(H) 7 - 45 Units/L CERNER CH Comment:Testing performed by : [facility], [address] [place] [address]., [id number] AST 53(H) 10 - 45 Units/L CERNER Comment:Testing performed by : [facility], [address] [place] [address]., [id number] Blood 04/21/2024 2:05 PM BLIND HANGER 04/21/2024 8:23 PM BLIND HANGER Radha Werner ROBOTICS TESTING TECHNICIAN LAB BLOOD ORDERABLES Final Resul t [address] Department [place] [address] * LUNG CANCER SCREENING (01/19/2024) Scribed Lung Cancer Screening Normal Impressions Stephanie Cole MD - 01/19/2024 Low-dose CT chest 01/19/2024 at [facility] negative for suspicious nodules. Narrative Stephanie Cole MD - 01/19/2024 See scanned report. us Flori Sotelo PA HEALTH MAINTENANCE Fin al Result * DIABETES EYE EXAM (01/18/2023) SCRIBED DIABETIC DILATED EYE EXAM Normal Impressions Stephanie Cole MD - 01/18/2023 Negative diabetic eye exam, Najma Mckinnon. Narrative Stephanie Cole MD - 01/18/2023 See scanned report us Aminah Cheung OD HEALTH MAINTENANCE Final Re sult * MAMMOGRAPHY (11/28/2022) Mammography Normal Impressions Stephanie Cole MD - 11/28/2022 [facility], [facility]. Narrative Stephanie Cole MD - 11/28/2022 See scanned report. us Betzaida Subramanian NP HEALTH MAINTENANCE Final Result * Hepatitis C antibody (01/21/2019 11:48 AM BLIND HANGER) Hep C Ab Negative Negative JAMAR FRANCISCO (HIRAM) Comment:Testing performed by : [facility], [address] [place] [address], [place]., [id number] Blood specimen (specimen) 01/21/2019 11:48 AM BLIND HANGER 01/21/2019 7:22 PM BLIND HANGER us Aliya Huertas DO LAB MICROBIOLOGY - GENERAL ORDERABLES Final Result JAMAR SINGH (HIRAM) 1 [facility] Department [place] [address] * COLONOSCOPY (04/23/2017) HM Colonoscopy Abnormal us Historical Provider HEALTH MAINTENANCE Final Result from Last 3 Months or Most Recently Relevant to Health Maintenance [facility] MEDICARE MEDICARE [facility] MEDICARE BLUE CROSS MEDICARE SUPPLEMENT Advance Directives For more information, please contact: [phone] * Full Code (Latest Code Status on File) Date Activated Date Inactivated Comments 06/27/2024 1:07 PM 06/27/2024 7:17 PM * Full Code Date Activated Date Inactivated Comments 12/19/2019 5:44 PM 12/21/2019 2:39 PM * Full Code Date Activated Date Inactivated Comments 11/19/2019 8:23 PM 11/21/2019 2:56 PM * Full Code Date Activated Date Inactivated Comments 11/21/2018 5:09 PM 11/24/2018 6:00 PM Care Teams Chairman & Ceo Relationship Specialty Start Date End Date Stephanie Cole MD [address] [place] [address] [place] [id number] PCP - General Internal Medicine 10/14/21 [place] [address] [address] [facility] [address] [place] [address] Consulting Physician Endocrinology Diabetes & Metabolism 01/21/19 [place] [address] [address] [facility] [address] [place] [address] Referring Physician Psychiatry 01/21/19 [place] [address] [facility]if[facility] [address] [place] [address] Consulting Physician Pain Management 09/25/22 Aminah Cheung OD [address] [place] [address] Consulting Physician Optometry 01/18/23 Flori Sotelo PA [address] [place] [address] [id number] Physician Coke Drawer Hand Pulmonary Disease 01/26/24 Kostas Lr MD [address] [place], [place] [id number] Consulting Physician Cardiology 02/22/24 Jay Marc MD [address] [place] [id number] Surgeon Orthopedic Surgery 04/21/24
== END 2024-07-14 12:07 | disposition home or self-care (01) ==
PROVIDERS: PCP Internal Medicine Infectious Disease; Visit Provider Internal Medicine Infectious Disease
DX: R31.0 Gross hematuria (principal)
CPT/HCPCS: 81001; 87086

== ENCOUNTER 2024-08-09 14:02 | Emergency (ER) | payer MEDICARE, SELFPAY ==
--- OUTSIDE RECORDS SUMMARY | 2024-08-09 14:05 | XMS_ITS | Encounter Summary ---
Author Organization [facility] Address [address] [place] [address] Care Team Providers Care Human Resources Hr Representative Name Role Phone Naveed Fernandez MD Primary Care Provider Unavail able Encounter Details Date Type Department Care Team (Late st Contact Info) Description 09/29/2003 Inpatient Historical HIS PATIENT IN A BED Jarad Neal MD NO ADDRESS ON FILE Franco Caraballo MD [address] [place] [address] ABDOMINAL PAIN UNSPEC SITE (Primary Dx) Social History Tobacco Use Types Packs/Day Years Used Date Smoking Tobacco: Never Assessed Comments Unknown Sex and Gender Information Value Date Recorded Sex Assigned at Female 01/14/2024 8:12 PM CDT Legal Sex Female 4:52 AM CLINICAL SOCIOLOGIST Gender Identity Female 01/14/2024 8:12 PM CDT Sexual Orientation Choose not to disclose 2023 8:12 PM CDT documented as of this encounter Plan of Treatment Not on file documented as of this encounter Visit Diagnoses Diagnosis Abdominal pain, unspecified site- Primary documented in this encounter Additional Health Concerns Infection Onset Date Last Indicated Resolved Time R/O Respiratory 02/10/2024 02/10/2024 02/10/2024 8 :05 PM CLINICAL SOCIOLOGIST R/O Respiratory 03/31/2024 03/31/2024 03/31/2024 5 :16 PM CLINICAL SOCIOLOGIST COVID-19 03/31/2024 03/31/2024 04/20/2024 1:16 AM CLINICAL SOCIOLOGIST R/O C. diff 04/01/2024 04/01/2024 04/02/2024 3:00 AM CLINICAL SOCIOLOGIST documented as of this encounter Care Teams Human Resources Hr Representative Relationship Specialty Start Date End Date Naveed Fernandez MD PCP - General Internal Medicine 04/21/23 Flori Mcdonald Nurse Practitioner Pulmonology 04/06/23 documented as of this encounter
--- OUTSIDE RECORDS SUMMARY | 2024-08-09 14:05 | XMS_ITS | Encounter Summary ---
Author Organization [facility] Address [address] [place] [address] Care Team Providers Care Dispute Resolution Specialist Name Role Phone Naveed Fernandez MD Primary Care Provider Unavail able Encounter Details Date Type Department Care Team (Late st Contact Info) Description 09/16/2003 Inpatient Historical HIS PATIENT IN A BED Franco Caraballo MD [address] [place] [address] NAUSEA WITH VOMITING (Primary Dx) Social History Tobacco Use Types Packs/Day Years Used Date Smoking Tobacco: Never Assessed Comments Unknown Sex and Gender Information Value Date Recorded Sex Assigned at Female 01/14/2024 8:12 PM CDT Legal Sex Female 4:52 AM PAID INTERNSHIP Gender Identity Female 01/14/2024 8:12 PM CDT Sexual Orientation Choose not to disclose 2023 8:12 PM CDT documented as of this encounter Plan of Treatment Not on file documented as of this encounter Visit Diagnoses Diagnosis Nausea with vomiting- Primary documented in this encounter Additional Health Concerns Infection Onset Date Last Indicated Resolved Time R/O Respiratory 02/10/2024 02/10/2024 02/10/2024 8 :05 PM PAID INTERNSHIP R/O Respiratory 03/31/2024 03/31/2024 03/31/2024 5 :16 PM PAID INTERNSHIP COVID-19 03/31/2024 03/31/2024 04/20/2024 1:16 AM PAID INTERNSHIP R/O C. diff 04/01/2024 04/01/2024 04/02/2024 3:00 AM PAID INTERNSHIP documented as of this encounter Care Teams Dispute Resolution Specialist Relationship Specialty Start Date End Date Naveed Fernandez MD PCP - General Internal Medicine 04/21/23 Flori Mcdonald Nurse Practitioner Pulmonology 04/06/23 documented as of this encounter
--- OUTSIDE RECORDS SUMMARY | 2024-08-09 14:05 | XMS_ITS | Encounter Summary ---
Author Organization [facility] Address [address] [place] [address] Care Team Providers Care Per Diem Registered Nurse Name Role Phone Naveed Fernandez MD Primary Care Provider Unavail able Encounter Details Date Type Department Care Team (Latest Contact Info) Description 02/19/2004 Outpatient Historical [facility] [place] [address] [place] [address] INTRINS URETHRL SPHINC DEFICIENCY (Primary Dx) Social History Tobacco Use Types Packs/Day Years Used Date Smoking Tobacco: Never Assessed Comments Unknown Sex and Gender Information Value Date Recorded Sex Assigned at Female 01/14/2024 8:12 PM CDT Legal Sex Female 4:52 AM ACADEMIC PROGRAM SPECIALIST Gender Identity Female 01/14/2024 8:12 PM CDT [...] Respiratory 02/10/2024 02/10/2024 02/10/2024 8 :05 PM ACADEMIC PROGRAM SPECIALIST R/O Respiratory 03/31/2024 03/31/2024 03/31/2024 5 :16 PM ACADEMIC PROGRAM SPECIALIST COVID-19 03/31/2024 03/31/2024 04/20/2024 1:16 AM ACADEMIC PROGRAM SPECIALIST R/O C. diff 04/01/2024 04/01/2024 04/02/2024 3:00 AM ACADEMIC PROGRAM SPECIALIST documented as of this encounter Care Teams Per Diem Registered Nurse Relationship Specialty Start Date End Date Naveed Fernandez MD PCP - General Internal Medicine 04/21/23 Flori Mcdonald Nurse Practitioner Pulmonology 04/06/23 documented as of this encounter
--- OUTSIDE RECORDS SUMMARY | 2024-08-09 14:05 | XMS_ITS | Clinical Summary ---
Author Organization [facility] Address [address] [place] [address] Phone Care Team Providers Care Vice President Of Nursing Name Role Phone Naveed Fernandez MD Primary Care Provider Unavail able Allergies Active Allergy Reactions Criticality Noted Date Comments Estelle Other (See Comments) Low 01/31/2015 tremors tremors [...] daily. 4 Active naloxone (NARCAN) 4 mg/spray [place], Non-Aerosol Administer 1 [place] in each nostril. 3 Active liothyronine (CYTOMEL) [...] moderate pain. 20 Tablet 03/30/2024 1:16 PM VOLTAGE REGULATOR ASSEMBLER 5 Active losartan (COZAAR) 50 mg tablet [...] of Breath. 8.5 Gram 04/03/2024 2:51 PM VOLTAGE REGULATOR ASSEMBLER 5 Active cyclobenzaprine (FLEXERIL) 5 mg Tablet Take 1 Tablet (5 mg) by mouth 3 times daily as needed for Spasm. 90 Tablet 04/03/2024 2:51 PM VOLTAGE REGULATOR ASSEMBLER 5 Active albuterol (PROVENTIL,VENTOLI N) 2.5 mg /3 mL (0.083 %) Solution for Nebulization Take 3 mL (2.5 mg) by inhalation every 6 hours as needed for Shortness of Breath or Wheezing. 90 mL 04/03/2024 2:51 PM VOLTAGE REGULATOR ASSEMBLER 01/16/202 5 Active predniSONE (DELTASONE) 20 mg tablet Starting 04/04: Take 2 Tablets (40 mg) by mouth daily with breakfast. 2 Tablet 04/03/2024 2:51 PM VOLTAGE REGULATOR ASSEMBLER Active oxyCODONE (ROXICODONE) 10 mg tabletIndications: Spondylosis without myelopathy or radiculopathy, sacral and sacrococcygeal region Take 1 Tablet (10 mg) by mouth every 6 hours as needed for Pain. Max Daily Amount: 40 mg 20 Tablet 04/03/2024 2:51 PM VOLTAGE REGULATOR ASSEMBLER Active polyethylene glycol 3350 (MIRALAX) 17 gram/dose Powder Starting 04/04: Dissolve 1 capful (17 Grams) in 8 ounces of fluid and drink by mouth once daily. mix as directed 510 Gram 04/03/2024 2:51 PM VOLTAGE REGULATOR ASSEMBLER Active Active Problems Problem Noted Date Diagnosed [...] continued 7. 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 She is taking a medication, Cytomel, which has a common side effect of diaphoresis. Encouraged patient to speak to her retail merchandiser technician about possibly discontinuing this medication. Last Assessment & Plan: Recent labs were all within normal range with exception of her TSH which was slightly elevated. She was seen by the nurse practitioner at that time who increased her levothyroxine to 150 mcg daily. 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 She is taking a medication, Cytomel, which has a common side effect of diaphoresis. Encouraged patient to speak to her retail merchandiser technician about possibly discontinuing this medication. Herpes simplex infection 01/19/2020 Essential hypertension 01/19/2020 Memory loss 01/19/2020 Hyperplastic polyp of sigmoid colon 01/01/2020 Overview (04/20/2023): Colonoscopy 04/23/2017 [facility] everywhere Colonoscopy 04/23/2017 [facility] everywhere Chronic migraine without aur a [...] Encounters Date Type Department Care Team Description 07/28/2024 12:57 PM CDT - 07/28/2024 11:59 PM CDT Hospital Encounter [address] [address] Jay Marc MD Discharge Disposition: Home or Self Care 07/15/2024 External Device Data STL ABSTRACTION Provider, Abstract 07/15/2024 External Device Data STL ABSTRACTION Provider, Abstract 07/07/2024 12:14 PM CDT - 07/07/2024 11:59 PM CDT Hospital Encounter [facility] Medicine Radiology [address] [place] [address] Jay Marc MD Discharge Disposition: Home or Self Care 05/28/2024 External Device Data STL ABSTRACTION Provider, Abstract 05/27/2024 External Device Data STL ABSTRACTION Provider, Abstract 05/20/2024 10:03 AM VOLTAGE REGULATOR ASSEMBLER - 05/20/2024 11:59 PM VOLTAGE REGULATOR ASSEMBLER Hospital Encounter [facility] Imaging Services [facility] [address] [place] [address] Jay Marc MD Discharge Disposition: Home or Self Care from Last 3 Months Immunizations Immunization Administration Dates Next Due (ADACEL/BOOSTRIX)(10 YR UP) TDAP VACCINE, 0.5ML, IM 05/18/2023 (PREVNAR 20)(6 WKS UP) PNEUM OCOCCAL CONJUGATE VACCINE 20-VALENT (PCV20), POLYSACCHARIDE [id number] CONJUGATE, ADJUVANT 0.5 ML (PF) IM 05/18/2023() [...] than three times a week 04/20/2023 Attends [employer] Not on file 04/20 Active Member [...] No 03/31/2024 Food Insecurity Answer Date Recorded Patient needs follow up regardin 07/15/2024 Transportation Needs Answer Date Record ed Patient needs follow up regardin 07/15/2024 Housing Stability Answer Date Recorded Social/Environmental Concerns No concerns Utility Needs Answer Date Recorded Patient needs follow up regardin 07/15/2024 Comments No Sex and Gender Information Value Date Recorded Sex Assigned at Female 01/14/2024 8:12 PM CDT Legal Sex Female 4:52 AM VOLTAGE REGULATOR ASSEMBLER Gender Identity Female 01/14/2024 8:12 PM CDT Sexual Orientation Choose not to disclose 2023 8:12 PM CDT Last Filed Vital Signs Vital Sign Reading Time Taken Comments Blood Pressure 129/48 04/03/2024 1:23 PM VOLTAGE REGULATOR ASSEMBLER Pulse 63 04/03/2024 1:23 PM VOLTAGE REGULATOR ASSEMBLER Temperature 36.6 C (97.8 F) 04/03/2024 1:23 PM VOLTAGE REGULATOR ASSEMBLER Respiratory Rate 12 04/03/2024 8:08 AM VOLTAGE REGULATOR ASSEMBLER Oxygen Saturation 91% 04/03/2024 1:23 PM VOLTAGE REGULATOR ASSEMBLER Inhaled Oxygen Concentration - - Weight 125.9 kg (277 lb 9 oz) 03/31/2024 11:21 P M VOLTAGE REGULATOR ASSEMBLER Height 172.7 cm (5' 8 ) 03/31/2024 2:26 PM VOLTAGE REGULATOR ASSEMBLER Body Mass Index 42.2 03/31/2024 2:26 PM VOLTAGE REGULATOR ASSEMBLER Plan of Treatment Health Maintenance Due Date [...] 06/06/2020, 05/14/2020 DIABETES HBA1C Q 6 MONTHS 01/22/20252024, 06/24/2024, 04/21/2024, Additional history exists DIABETES ANNUAL FOOT EXAM 01/24/2025 01/25/2024 COLORECTAL SCREENING 04/23/2027 04/23/2017, 03/19/19 12 Colorectal Cancer Screening 04/23/2027 DTAP/TDAP/TD VACCINES (2 - T d or Tdap) 05/17/2033 05/18/2023, 10/13/2013, 03/19/2013 Lung Cancer Screening Discontinued 09/07/2021 , 02/23/2020, 02/19/2019 ZOSTER VACCINE Completed 07/19/2022, 05/07/2022 INFLUENZA VACCINE Completed 01/09/2024, , 05/07/2022, Additional history exists Medical Devices Implanted Type Area Flight Test Data Acquisition Technician Device Identifier Shelf Expiration Date Model / Serial / Lot Infuse Protein Kit [id number] - [id number] Implanted:Qty: 1 on 05/05/2015 by Jay Marc MD at [facility] l N/A: Back MEDTRONIC- SOFAMOR DANEK [id number] 04/18/2017 [id number] / / [id number] [facility] Infuse Protein Kit Med [id number] - [id number] Implanted:Qty: 1 on 04/20/2023 by Jay Macr MD at [facility] l N/A: Spine Lumbar MEDTRONIC- SOFAMOR DANEK 2025 [id number] / / [id number] Sealant Duraseal 5ml [id number] Implanted:Qty: 1 on 03/26/2024 by Jay Marc MD at [facility] l N/A: Spine Thoracic [employer]RA [employer]OW 07/16/2024 / / [id number] Infuse Protein Kit Med [id number] - [id number] Implanted:Qty: 1 on 03/26/2024 by Jay Marc MD at [facility] l N/A: Spine Thoracic MEDTRONIC- SOFAMOR DANEK [id number] 01/17/2025 [id number] / / [id number] Allgrft Spacer Acf 7mm 824625 - [id number] Implanted:Qty: 1 on 11/29/2016 by Jay Marc MD at [facility] Bone N/A: Spine Cervical Anterior MUSCULOSKELETAL TRANSPLANT FOU 11/16/2020 [id number] / [id number] / Description:BOTH MTF SPACERS PROCESSED ON REQ# [id number] Allgrft Spacer Acf 7mm 706715 - [id number] Implanted:Qty: 1 on 11/29/2016 by Jay Marc MD at [facility] Bone N/A: Spine Cervical Anterior MUSCULOSKELETAL TRANSPLANT FOU 12/06/2020 478232 / [id number] / Allgrft Vivigen Matrix 10ml Bl-1500-003 - [id number] Implanted:Qty: 1 on 07/13/2017 by Jay Marc MD at [facility] Bone N/A: Spine Cervical Posterior LIFENET 01/05/2018 BL-1500-003 / [id number] / Description:REQ#[id number] Allgrft Vivigen Matrix 10ml Bl-1500-003 - [id number] Implanted:Qty: 1 on 07/13/2017 by Jay Marc MD at [facility] Bone N/A: Spine Cervical Posterior LIFENET 01/03/2018 BL-1500-003 / [id number] / Hemostatic Surgiflo 8ml W/Thrombin 2994 - [id number] Implanted:Qty: 1 on 07/13/2017 by Jay Marc MD at [facility] Hemostati c N/A: Spine Cervical Posterior J&J- ETHICON INC 09/15/2018 2994 / / [id number] Hemostatic Surgifoam Sz12-7 1971 - [id number] Implanted:Qty: 1 on 04/20/2023 by Jay Marc MD at [facility] Hemostati c N/A: Spine Lumbar J&J- ETHICON ENDO-SURGERY INC 12/13/20261971 / / [id number] Hemostatic Surgiflo 8ml W/ Thrombin 2994 - [id number] Implanted:Qty: 1 on 04/20/2023 by Jay Marc MD at [facility] Hemostati c N/A: Spine Lumbar J&J- [employer] INC [id number] 06/16/2024 2994 / / [id number] Hemostatic Surgiflo 8ml W/ Thrombin 2994 - [id number] Implanted:Qty: 1 on 04/20/2023 by Jay Marc MD at [facility] Hemostati c N/A: Spine Lumbar J&J- [employer] INC [id number] 04/18/2024 2994 / / [id number] Hemostatic Surgiflo 8ml W/ Thrombin 2994 - [id number] Implanted:Qty: 1 on 04/20/2023 by Jay Marc MD at [facility] Hemostati c N/A: Spine Lumbar J&J- [employer] INC [id number] 04/18/2024 2994 / / [id number] Hemostatic Surgiflo 8ml W/ Thrombin 2994 - [id number] Implanted:Qty: 1 on 04/20/2023 by Jay Marc MD at [facility] Hemostati c N/A: Spine Lumbar J&J- [employer] INC [id number] 05/16/2024 2994 / / [id number] Hemostatic Surgiflo 8ml W/ Thrombin 2994 - [id number] Implanted:Qty: 1 on 04/20/2023 by Jay Marc MD at [facility] Hemostati c N/A: Spine Lumbar J&J- [employer] INC [id number] 05/16/2024 2994 / / [id number] Hemostatic Surgiflo 8ml W/ Thrombin 2994 - [id number] Implanted:Qty: 4 on 03/26/2024 by Jay Marc MD at [facility] Hemostati c N/A: Spine Thoracic J&J- [employer] INC [id number] 05/16/2025 2994 / / [id number] Hemostatic Surgiflo 8ml W/ Thrombin 2994 - [id number] Implanted:Qty: 3 on 03/26/2024 by Jay Marc MD at [facility] Hemostati c N/A: Spine Thoracic J&J- [employer] INC [id number] 05/16/2025 2994 / / [id number] Hemostatic Surgiflo 8ml W/ Thrombin 299 - [id number] Implanted:Qty: 2 on 03/26/2024 by Jay Marc MD at [facility] Hemostati c N/A: Spine Thoracic J&J- [employer] INC [id number] 03/18/2025 2994 / / [id number] Hemostatic Surgifoam Sz100 1973 - [id number] Implanted:Qty: 1 on 03/26/2024 by Jay Marc MD at [facility] Hemostati c N/A: Spine Thoracic J&J- ETHICON ENDO-SURGERY INC [id number] 12/27/2027 1974 / / [id number] Hemostatic Surgifoam Sz12-7 1971 - [id number] Implanted:Qty: 1 on 03/26/2024 by Jay Marc MD at [facility] Hemostati c N/A: Spine Thoracic J&J- [employer]ON ENDO[employer] [id number] 01/15/2028 1972 / / [id number] Hemostatic Surgiflo 8ml W/ Thrombin 299 - [id number] Implanted:Qty: 1 on 03/26/2024 by Jay Marc MD at [facility] Hemostati c N/A: Spine Thoracic J&J- [employer] INC [id number] 02/15/2025 2994 / / [id number] Plate Cslp Leonard Ang 66mm 450.175 - Sload 411, Sterilized 11/23/2016 Implanted:Qty: 1 on 11/29/2016 by Jay Marc MD at [facility] Plate N/A: Spine Cervical Anterior SYNTHES-STRATEC- SPINAL 450.175 / LOAD 411, STERILIZED 11/23/2016 / Description:ALL SYNTHES SPIN E HARDWARE PROCESSED ON REQ# [id number] 3.5mm Ti Curved Harsh 75mm Implanted:Qty: 2 on 07/13/2017 by Jay Marc MD at [facility] Harsh N/A: Spine Cervical Posterior 04.614.775 / / STERILIZED -07/13/17; VAC- 9; LOAD- [id number] Description:REQUISITION # 78 70800 Harsh Cdh Ccm 5.5x60mm Crvd [id number] - [id number] Implanted:Qty: 2 on 04/20/2023 by Jya Marc MD at [facility] Harsh N/A: Spine Lumbar MEDTRONIC- SOFAMOR DANEK [id number] / / LAOD 37, 04/17/23 100mm Medtronic Prebent Harsh Implanted:Qty: 2 on 03/26/2024 by Jay Marc MD at [facility] Harsh N/A: Spine Thoracic MEDTRONIC - COVIDIEN [id number] / / LOAD 13 STERILIZED 03/20/2024 Description:REQ [id number] Screw Xpnhead C Spine 4.04f79hy 487.056 - Sload 411, Sterilized 11/23/2016 Implanted:Qty: 8 on 11/29/2016 by Jay Marc MD at [facility] Screw N/A: Spine Cervical Anterior SYNTHES STRATEC 487.056 / LOAD 411, STERILIZED 11/23/2016 / Screw Lock C Spine 1.8mm 497.78 - Sload 411, Sterilized 11/23/2016 Implanted:Qty: 8 on 11/29/2016 by Jay Marc MD at [facility] Screw N/A: Spine Cervical Anterior SYNTHES-STRATEC- SPINAL 497.78 / LOAD 411, STERILIZED 11/23/2016 / Screw Canc Polyaxial 3.5x12mm 04.614.012 - Ssterilization 9 Load [id number] Implanted:Qty: 6 on 07/13/2017 by Jay Marc MD at [facility] Screw N/A: Spine Cervical Posterior SYNTHES-STRATEC- MAXIFACIAL 04.614.012 / STERILIZATI ON 9 LOAD [id number] / Description:REQUISITION # [id number] Screw Canc Polyaxial 3.5x14mm 04.614.014 - Ssterilization 9 Load [id number] Implanted:Qty: 2 on 07/13/2017 by Jay Marc MD at [facility] Screw N/A: Spine Cervical Posterior SYNTHES-STRATEC- MAXIFACIAL 04.614.014 / STERILIZATI ON 9 LOAD [id number] / Screw Synapse Locking 04.614.508 - Ssterilization 9 Load [id number] Implanted:Qty: 8 on 07/13/2017 by Jay Marc MD at [facility] Screw N/A: Spine Cervical Posterior SYNTHES-STRATEC- SPINAL 04.614.508 / STERILIZATI ON 9 LOAD [id number] / 7.5mm X 45mm Screw Implanted:Qty: 2 on 04/20/2023 by Jay Marc MD at [facility] Screw N/A: Spine Lumbar MEDTRONIC- SOFAMOR DANEK 02/21/2028 [id number] / / [id number] 7.5mm X 45mm Screw Implanted:Qty: 3 on 04/20/2023 by Jay Marc MD at [facility] Screw N/A: Spine Lumbar MEDTRONIC- SOFAMOR DANEK 02/17/2028 [id number] / / [id number] 7.5mm X 45mm Screw Implanted:Qty: 1 on 04/20/2023 by Jay Marc MD at [facility] Screw N/A: Spine Lumbar MEDTRONIC- SOFAMOR DANEK 03/28/2028 [id number] / / [id number] Screw Solera 5.5/6.0 Breakoff 2571019 - [id number] Implanted:Qty: 6 on 04/20/2023 by Jay Marc MD at [facility] Screw N/A: Spine Lumbar MEDTRONIC- SOFAMOR DANEK [id number] / / LAOD 37, 04/17/23 Lane Coated Multi-Axial Screw For 5.5/6.0 Rods [id number] Implanted:Qty: 3 on 03/26/2024 by Jay Marc MD at [facility] Screw N/A: Spine Thoracic MEDTRONIC - COVIDIEN 08/30/2028 [id number] / / [id number] Lane Coated Multi-Axial Screw For 5.5/6.0 Rods [id number] Implanted:Qty: 1 on 03/26/2024 by Jay Marc MD at [facility] Screw N/A: Spine Thoracic MEDTRONIC - COVIDIEN 10/20/2027 [id number] / / [id number] Lane Coated Multi-Axial Screw For 5.5/6.0 Rods [id number] Implanted:Qty: 4 on 03/26/2024 by Jay Marc MD at [facility] Screw N/A: Spine Thoracic MEDTRONIC - COVIDIEN 01/06/2029 [id number] / / [id number] Screw Solera 5.5/6.0 Breakoff 5852240 - [id number] Implanted:Qty: 8 on 03/26/2024 by Jay Marc MD at [facility] Screw N/A: Spine Thoracic MEDTRONIC- SOFAMOR DANEK [id number] / / LOAD 13 STERILIZED 03/20/2024 Sealant Floseal W/ Adptr 10ml 8182164 - [id number] Implanted:Qty: 1 on 05/05/2015 by Jay Marc MD at [facility] Sealant N/A: Back BRITTON- BIOSCIENCE 07/16/2016 [id number] / / [id number] Sealant Floseal W/ Adptr 10ml 5319478 - [id number] Implanted:Qty: 1 on 05/05/2015 by Jay Marc MD at [facility] Sealant N/A: Back BRITTON- BIOSCIENCE [id number] 06/16/2016 7092946 / / [id number] Sealant Floseal 10ml 4781541 - [id number] Implanted:Qty: 2 on 11/29/2016 by Jay Marc MD at [facility] Sealant N/A: Spine Cervical Anterior BRITTON- BIOSCIENCE [id number] 01/20/2018 [id number] / / [id number] Log [id number] - Bladder Slings And Tapes - 1 - Sling Gynecare Tvt Exact Tvtrl Implanted:Qty: 1 on 04/18/2010 at [facility] Sling N/A: Urethra J&J- ETHICON INC 01/16/2011 TVTRL / / [id number] Allgrft Spcr Lmnry T-Plif 11mm 579140 - [id number] Implanted:Qty: 1 on 05/05/2015 by Jay Marc MD at [facility] Spacer N/A: Spine Lumbar MUSCULOSKELETAL TRANSPLANT FOU 09/30/2018 613879 / [id number] / Description:L5-S1This MTF sp acer was processed on requisition,[id number]. Bone Chips Canc 30ml [id number] - [id number] Implanted:Qty: 1 on 04/20/2023 by Jay Marc MD at [facility] Tissue N/A: Spine Lumbar ALLOSOURCE [id number] 11/20/2027 [id number] / [id number] / Bone Chips Canc 30ml [id number] - [id number] Implanted:Qty: 1 on 04/20/2023 by Jay Marc MD at [facility] Tissue N/A: Spine Lumbar ALLOSOURCE [id number] 11/06/2027 [id number] / [id number] / Explanted Type Area Flight Test Data Acquisition Technician Device Identifier Shelf Expiration Date Model / Serial / Lot Harsh Xpdm Crv W/Line 40mm [id number] - Stray Sterilized May 05, 2015,Load 26 Implanted:Qty: 2 on 05/05/2015 by Jay Marc MD at [facility] Explanted:Qty: 2 on 04/20/2023 by Jay Marc MD at [facility] Harsh N/A: Spine Lumbar J&J- [employer] INC 1797-71-040 / TRAY STERILIZED Apr,LOAD 26 / Description:Depuy spinal zaheer dware was processed on requisition,[id number]. Screw Exp Poly 7x40mm 1797-12-740 - Stray Sterilized May 05, 2015,Load 26 Implanted:Qty: 2 on 05/05/2015 by Jay Marc MD at [facility] Explanted:Qty: 2 on 04/20/2023 by Jay Marc MD at [facility] Screw N/A: Spine Lumbar J&J- DEPUY SPINE INC 1797-12-740 / TRAY STERILIZED Apr,LOAD 26 / Setscrew Inner 179 - Stray Sterilized May 05, 2015,Load 26 Implanted:Qty: 4 on 05/05/2015 by Jay Marc MD at [facility] Explanted:Qty: 4 on 04/20/2023 by Jay Marc MD at [facility] Screw N/A: Spine Lumbar J&J- DEPUY SPINE INC / TRAY STERILIZED Apr,LOAD 26 / Screw Exp Poly 6x45mm 1797-12-645 - [id number] Implanted:Qty: 2 on 05/05/2015 by Jay Marc MD at [facility] Explanted:Qty: 2 on 04/20/2023 by Jay Marc MD at [facility] Screw N/A: Spine Lumbar J&J- DEPUY SPINE INC 1797-12-645 / / Description:Depuy spinal zaheer fantasma was processed on requisition,[id number]. Cervical Screw Explanted:Qty: 4 on 11/29/2016 by Jay Marc MD at [facility] Bilateral: Spine Cervical Anterior Description:unknown informat ion Cervical Plate Implanted:Qty: 1 Explanted:Qty: 1 on 11/29/2016 by Jay Marc MD at [facility] N/A: Spine Cervical Anterior Description:unknown informat ion Procedures Procedure Name Priority Date/Time Associated Diagnosis Comments MRI THORACIC W WO CONTRAST Routine 07/28/2024 2:41 PM CDT Postlaminectomy syndrome, thoracic region XR THORACIC SPINE 2 VW Routine 07/07/2024 12:49 PM CDT Spinal stenosis of thoracic region XR THORACIC SPINE 4+ VW Routine 05/20/2024 10:12 AM VOLTAGE REGULATOR ASSEMBLER Postlaminectomy syndrome, not elsewhere classified HEMOGLOBIN A1C Routine 04/06/2023 12:45 PM VOLTAGE REGULATOR ASSEMBLER LIPID PANEL Routine 01/18/2020 3:14 PM VOLTAGE REGULATOR ASSEMBLER MAMMO SCREEN BILAT W OR WO CAD Routine 04/15/2018 from Last 3 Months or Most Recently Relevant to Health Maintenance Results * MRI THORACIC W WO CONTRAST (07/28/2024 2:41 PM CDT) Anatomical Region Laterality Modality Spine Magnetic Resonan ce 07/28/2024 2:43 PM CDT Impressions 07/28/2024 2:59 PM CDT Impression: 1. Postsurgical change in the thoracic spine. Resolution of previously noted mass effect on the thoracic spinal cord. No definite thoracic spinal cord lesion is seen. Details obscured by metallic artifact. 2. Mild degenerative disease in the thoracic spine without significant spinal canal or neural foraminal stenosis. DICTATION LOCATION: Location 1 - [facility] 07/28/2024 2:59 PM CDT EXAM: MRI THORACIC W WO CONTRAST DATE: 07/28/2024 2:41 PM CLINICAL HISTORY: Postlaminectomy syndrome. Back pain. TECHNIQUE: Multiple sagittal and axial MR sequences were obtained of the thoracic spine without and with the use of IV contrast. IV CONTRAST: 20 mL ProHance COMPARISON: February 20, 2024. FINDINGS: Postsurgical changes partially visualized in the lower cervical spine. Posterior spinal instrumentation T5-T8. Metallic artifact obscures adjacent structures. Laminectomy change. Suspect the previously noted indentation in the thoracic spinal cord at the T6-7 level has resolved. No enhancing lesion. Preservation of the normal thoracic kyphosis. No anterolisthesis or retrolisthesis is identified. There are no wedge-shaped compression deformities. No destructive marrow replacing lesions. The thoracic spinal cord is normal in size and signal. There is degenerative loss of disc space height and signal. Small disc bulges at T4-5 and T8-9. There is no significant central or neural foraminal narrowing. The paraspinous soft tissues are unremarkable. INCIDENTAL FINDINGS: None. Procedure Note Felix Valentin MD - 07/28/2024 EXAM: MRI THORACIC W WO CONTRAST DATE: 07/28/2024 2:41 PM CLINICAL HISTORY: Postlaminectomy syndrome. Back pain. TECHNIQUE: Multiple sagittal and axial MR sequences were obtained of the thoracic spine without and with the use of IV contrast. IV CONTRAST: 20 mL ProHance COMPARISON: February 20, 2024. FINDINGS: Postsurgical changes partially visualized in the lower cervical spine. Posterior spinal instrumentation T5-T8. Metallic artifact obscures adjacent structures. Laminectomy change. Suspect the previously noted indentation in the thoracic spinal cord at the T6-7 level has resolved. No enhancing lesion. Preservation of the normal thoracic kyphosis. No anterolisthesis or retrolisthesis is identified. There are no wedge-shaped compression deformities. No destructive marrow replacing lesions. The thoracic spinal cord is normal in size and signal. There is degenerative loss of disc space height and signal. Small disc bulges at T4-5 and T8-9. There is no significant central or neural foraminal narrowing. The paraspinous soft tissues are unremarkable. INCIDENTAL FINDINGS: None. Impression: 1. Postsurgical change in the thoracic spine. Resolution of previously noted mass effect on the thoracic spinal cord. No definite thoracic spinal cord lesion is seen. Details obscured by metallic artifact. 2. Mild degenerative disease in the thoracic spine without significant spinal canal or neural foraminal stenosis. DICTATION LOCATION: Location 1 [facility] Jay Marc MD MR ORDERABLES Final Result * XR THORACIC SPINE 2 VW (07/07/2024 12:49 PM CDT) Anatomical Region Laterality Modality Spine Computed Radiogr [...] thoracic spine. DICTATION LOCATION: Location 4 Jay Marc MD DIAGNOSTIC IMAGING ORDERABLES F inal Result * XR THORACIC SPINE 4+ VW (05/20/2024 10:12 AM VOLTAGE REGULATOR ASSEMBLER) Anatomical Region Laterality Modality Spine Computed Radiogr aphy 05/20/2024 10:1 2 AM VOLTAGE REGULATOR ASSEMBLER Impressions 05/20/2024 3:46 PM VOLTAGE REGULATOR ASSEMBLER IMPRESSION: Posterior instrumented fusion in the thoracic spine, without evidence of complication. DICTATION LOCATION: Location 4 Narrative 05/20/2024 3:46 PM VOLTAGE REGULATOR ASSEMBLER EXAM: XR THORACIC SPINE 4+ VW DATE: [...] * (ABNORMAL) HEMOGLOBIN A1C (04/06/2023 12:45 PM VOLTAGE REGULATOR ASSEMBLER) HEMOGLOBIN A1C 8.0(H) <5.7 % 04/06/2023 1:59 PM VOLTAGE REGULATOR ASSEMBLER [facility] EST. AVG GLUCOSE, A1C 183 mg/dL 04/06/2023 1:59 PM VOLTAGE REGULATOR ASSEMBLER [facility] [employer] [facility] Blood Venipuncture / Unknown 04/06/2023 12:45 PM VOLTAGE REGULATOR ASSEMBLER 04/06/2023 1:32 PM VOLTAGE REGULATOR ASSEMBLER Narrative [facility] [employer] [facility] - 04/06/2023 1:59 PM VOLTAGE REGULATOR ASSEMBLER HGB A1C INTERPRETATION NORMAL: <5.7% PRE-DIABETES: 5.7 - 6.4% DIABETES: 6.5% OR GREATER Jay Marc MD CHEMISTRY ORDERABLES Final Resu lt [facility] [employer] [facility]# [id number] [address] [facility] [place] [address] * (ABNORMAL) LIPID PANEL (01/18/2020 3:14 PM VOLTAGE REGULATOR ASSEMBLER) CHOLESTEROL 170 <200 mg/dL 01/19/2020 6:25 AM [facility] TRIGLYCERIDE 254(H) <150 mg/dL 01/19/2020 6:25 AM [facility] [employer] [facility] HDL 36(L) 40 - 59 mg/dL 01/19/2020 6:25 AM [facility] LDL CALCULATED 83 <100 mg/dL 01/19/2020 6:25 AM [facility] NON-HDL CHOLESTEROL 134(H) <130 mg/dL 01/19/2020 6:25 AM [facility] [employer] [facility] Blood Venipuncture / Unknown 01/18/2020 3:14 PM VOLTAGE REGULATOR ASSEMBLER 01/18/2020 3:25 PM VOLTAGE REGULATOR ASSEMBLER Narrative [facility] - 01/19/2020 6:25 AM 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 Carlos Ventura MD CHEMISTRY ORDERABLES Formerly [facility] Result [facility]# [id number] [address] [place] [address] * MAMMO SCREEN BILAT W OR WO CAD (04/15/2018) Anatomical Region Laterality Modality Breast Bilateral Mammography us Abstract Provider MAMMO ORDERABLES Edited Result - Final from Last 3 Months or Most Recently Relevant to Health Maintenance Insurance MEDICARE PART A AND B [facility] [employer] Medicare Part D RX [employer] (INTERNAL) [facility] Internal Plans Advance Directives For more information, please contact: [phone] * Full Code (Latest Code Status on [...] 6:21 PM 04/27/2023 11:58 AM Care Teams Vice President Of Nursing Relationship Specialty Start Date End Date Naveed Fernandez MD PCP - General Internal Medicine 04/21/23 Flori Mcdonald Nurse Practitioner Pulmonology 04/06/23
--- OUTSIDE RECORDS SUMMARY | 2024-08-09 14:05 | XMS_ITS | Encounter Summary ---
Author Organization [facility] Address [address] [place] [address] Care Team Providers Care Reading Professor Name Role Phone Naveed Fernandez MD Primary Care Provider Unavail able Encounter Details Date Type Department Care Team (Late st Contact Info) Description 04/17/2002 Inpatient Historical HIS PATIENT IN A BED Clint Vazquez MD [address] [place] [id number] MANIC-DEPRESSIVE NEC (CMS/HCC) (Primary Dx) Social History Tobacco Use Types Packs/Day Years Used Date Smoking Tobacco: Never Assessed Comments Unknown Sex and Gender Information Value Date Recorded Sex Assigned at Female 01/14/2024 8:12 PM CDT Legal Sex Female 4:52 AM PUBLIC RELATIONS ANALYST Gender Identity Female 01/14/2024 8:12 PM CDT Sexual Orientation Choose not to disclose 2023 8:12 PM CDT documented as of this encounter Plan of Treatment Not on file documented as of this encounter Visit Diagnoses Diagnosis Other bipolar disorders- Primary documented in this encounter Additional Health Concerns Infection Onset Date Last Indicated Resolved Time R/O Respiratory 02/10/2024 02/10/2024 02/10/2024 8 :05 PM PUBLIC RELATIONS ANALYST R/O Respiratory 03/31/2024 03/31/2024 03/31/2024 5 :16 PM PUBLIC RELATIONS ANALYST COVID-19 03/31/2024 03/31/2024 04/20/2024 1:16 AM PUBLIC RELATIONS ANALYST R/O C. diff 04/01/2024 04/01/2024 04/02/2024 3:00 AM PUBLIC RELATIONS ANALYST documented as of this encounter Care Teams Reading Professor Relationship Specialty Start Date End Date Naveed Fernandez MD PCP - General Internal Medicine 04/21/23 Flori Mcdonald Nurse Practitioner Pulmonology 04/06/23 documented as of this encounter
--- OUTSIDE RECORDS SUMMARY | 2024-08-09 14:05 | XMS_ITS | Encounter Summary ---
Author Organization [facility] Healthcare Address [facility] [place] [address] Care Team Providers Care Cow Trimmer Name Role Phone Chago Randolph MD Unavailable Zachary Hurley MD Unavailable Naveed Fernandez MD Primary Care Provider [phone] Osvaldo Feldman MD Unavailable [phone] Aminah Cheung OD Unavailable [phone] Flori Sotelo Unavailable Kostas Lr MD Unavailable Jay Marc MD Unavailable [phone] Encounter Details Date Type Department Care Team (Late st Contact Info) Description 07/23/2024 Results Follow-Up [facility] Medical Group [facility] [address] [place] [address] Naveed Fernandez MD [address] [place] [address] Urinalysis reflex to microscopic, TSH, T4, free, Additional followed-up results: 4 Social History Tobacco Use Types Packs/Day Years Used Date Smoking Tobacco: Every Day Cigarettes 1 47.4 Started: 03/19/1977 Smokeless Tobacco: Never Comments:40 pack/years Alcohol Use Standard Drinks/Week Comments Not Currently 0 (1 standard drink = 0.6 oz pur e alcohol) Social Connection and Isolation Panel [NHANES] A nswer Date Recorded Frequency of Communication with Friends and Fami ly Not on file 01/30/2020 Frequency of Social Gatherings with Friends and Family Not on file 01/30/2020 How often do you attend anglican or restorationist serv ices? Never 01/30/2020 Do you belong to any clubs o r organizations such as anglican groups, unions, fraternal or athletic groups, or [...] on file Legal Sex Female 1:21 PM ACTUARY MANAGER Gender Identity Female 05/05/2022 8:09 AM ACTUARY MANAGER Sexual Orientation Straight 11/04/2018 1: 20 PM CDT Occupation Industry Job Start Date Job End Date disabled Not on file Not on file Not on file documented as of this encounter Plan of Treatment Not on file documented as of this encounter Visit Diagnoses Not on filedocumented in this encounter Care Teams Cow Trimmer Relationship Specialty Start Date End Date Naveed Fernandez MD [address] [facility] [address] [place] [address] PCP - General Internal Medicine 10/14/21 [place] [address] [address] [facility] [address] [place] [address] Consulting Physician Endocrinology Diabetes & Metabolism 01/21/19 [place] [address] [address] [facility] [address] [place] [address] Referring Physician Psychiatry 01/21/19 [place] [address] [facility] [address] [place] [address] Consulting Physician Pain Management 09/25/22 Aminah Cheung OD [address] [place] [address] Consulting Physician Optometry 01/18/23 Flori Sotelo PA [address] [place] [address] Physician Automatic Hemmer Pulmonary Disease 01/26/24 Kostas Lr MD [address] [facility] [address] [place] [address] Consulting Physician Cardiology 02/22/24 Jay Marc MD [address] [facility] [address] [place] [id number] Surgeon Orthopedic Surgery 04/21/24 documented as of this encounter
--- OUTSIDE RECORDS SUMMARY | 2024-08-09 14:05 | XMS_ITS | Encounter Summary ---
Author Organization [facility] Address [address] [place] [address] Care Team Providers Care Sales Appointment Coordinator Name Role Phone Naveed Fernandez MD Primary Care Provider Unavail able Encounter Details Date Type Department Care Team (Late st Contact Info) Description 09/09/2003 Inpatient Historical HIS PATIENT IN A BED Franco Caraballo MD [address] [place] [address] FEMALE GENITAL SYMPTOMS NOS (Primary Dx) Social History Tobacco Use Types Packs/Day Years Used Date Smoking Tobacco: Never Assessed Comments Unknown Sex and Gender Information Value Date Recorded Sex Assigned at Female 01/14/2024 8:12 PM CDT Legal Sex Female 4:52 AM MOLECULAR BIOLOGY DIRECTOR Gender Identity Female 01/14/2024 8:12 PM CDT [...] Respiratory 02/10/2024 02/10/2024 02/10/2024 8 :05 PM MOLECULAR BIOLOGY DIRECTOR R/O Respiratory 03/31/2024 03/31/2024 03/31/2024 5 :16 PM MOLECULAR BIOLOGY DIRECTOR COVID-19 03/31/2024 03/31/2024 04/20/2024 1:16 AM MOLECULAR BIOLOGY DIRECTOR R/O C. diff 04/01/2024 04/01/2024 04/02/2024 3:00 AM MOLECULAR BIOLOGY DIRECTOR documented as of this encounter Care Teams Sales Appointment Coordinator Relationship Specialty Start Date End Date Naveed Fernandez MD PCP - General Internal Medicine 04/21/23 Flori Mcdonald Nurse Practitioner Pulmonology 04/06/23 documented as of this encounter
--- OUTSIDE RECORDS SUMMARY | 2024-08-09 14:05 | XMS_ITS | Encounter Summary ---
Author Organization [facility] Address [address] [place] [address] Care Team Providers Care Activities Coordinator Name Role Phone Naveed Fernandez MD Primary Care Provider Unavail able Encounter Details Date Type Department Care Team (Late st Contact Info) Description 09/30/2003 Outpatient [facility] Division of Neurology [address] [address] (Excluded Provider) [place] [address] [facility] [address] [place] [address] Social History Tobacco Use Types Packs/Day Years Used Date Smoking Tobacco: Never Assessed Comments Unknown Sex and Gender Information Value Date Recorded Sex Assigned at Female 01/14/2024 8:12 PM CDT Legal Sex Female 4:52 AM JAVA LEAD DEVELOPER Gender Identity Female 01/14/2024 8:12 PM CDT Sexual Orientation Choose not to disclose 2023 8:12 PM CDT documented as of this encounter Plan of Treatment Not on file documented as of this encounter Visit Diagnoses Not on filedocumented in this encounter Additional Health Concerns Infection Onset Date Last Indicated Resolved Time R/O Respiratory 02/10/2024 02/10/2024 02/10/2024 8 :05 PM JAVA LEAD DEVELOPER R/O Respiratory 03/31/2024 03/31/2024 03/31/2024 5 :16 PM JAVA LEAD DEVELOPER COVID-19 03/31/2024 03/31/2024 04/20/2024 1:16 AM JAVA LEAD DEVELOPER R/O C. diff 04/01/2024 04/01/2024 04/02/2024 3:00 AM JAVA LEAD DEVELOPER documented as of this encounter Care Teams Activities Coordinator Relationship Specialty Start Date End Date Naveed Fernandez MD PCP - General Internal Medicine 04/21/23 Flori Mcdonald Nurse Practitioner Pulmonology 04/06/23 documented as of this encounter
--- OUTSIDE RECORDS SUMMARY | 2024-08-09 14:05 | XMS_ITS | Continuity of Care Document ---
Author Organization [facility] Address [id number] Jia norman [address] [place] [address] Phone Care Team Providers Care Nib Inspector Name Role Phone Jourdan Montes MD Unavailable Unavailable Allergies, Adverse Reactions, Alerts Substance Reaction Status Criticality No Known Allergies Active No Inform ation Medications Medication Instructions Dosage Effective Dates (start - stop) Status Comments famciclovir 250 mg tablet - Active Seroquel 100 mg tablet - Active levothyroxine 125 mcg tablet take 1 tablet by oral route every day 125 MCG - Active Inderal LA 80 mg capsule,extended release take 1 capsule by oral route 3 times every day 80 MG - Active Pristiq 100 mg tablet,extended release take 1 tablet by oral route every day 100 MG - Active melatonin 5 mg capsule - Active estradiol 1 mg tablet take 1 tablet by oral route every day 1 MG - Active aspirin 81 mg tablet,delayed release take 1 tablet by oral route every day 81 MG - Active liothyronine 25 mcg tablet take 1/2 tablet by oral route every day - Active multivitamin tablet one in am - Active Calcium 600-D3 Plus 600 mg calcium-800 unit-50 mg tablet take one am and pm - Active Vitamin D3 2,000 unit tablet one at hs - Active BACLOFEN 10MG TABLET TAKE 1/2 TO 1 TABLET BY MOUTH EVERY SIX (6) HOURS NEEDED - No Longer Active [place] 5 mg-325 mg tablet take 1 tablet by oral route every 4 - 6 hours as needed for pain - No Longer Active Procedures Procedure Date OFFICE/OUTPATIENT VISIT EST OFFICE/OUTPATIENT VISIT EST OFFICE/OUTPATIENT VISIT EST OFFICE/OUTPATIENT VISIT EST OFFICE/OUTPATIENT VISIT EST OFFICE/OUTPATIENT VISIT EST OFFICE/OUTPATIENT VISIT EST OFFICE/OUTPATIENT VISIT EST POSTOP FOLLOW-UP VISIT POSTOP FOLLOW-UP VISIT OFFICE/OUTPATIENT VISIT EST Rx certified EHR OFFICE/OUTPATIENT VISIT EST OFFICE/OUTPATIENT VISIT EST OFFICE/OUTPATIENT VISIT EST POSTOP FOLLOW-UP VISIT OFFICE/OUTPATIENT VISIT EST OFFICE/OUTPATIENT VISIT NEW OFFICE/OUTPATIENT VISIT EST OFFICE/OUTPATIENT VISIT EST OFFICE/OUTPATIENT VISIT EST OFFICE/OUTPATIENT VISIT EST POSTOP FOLLOW-UP VISIT POSTOP FOLLOW-UP VISIT OFFICE/OUTPATIENT VISIT EST OFFICE/OUTPATIENT VISIT NEW Advance Directives Directive Yes / No Effective Date File Name No Information Encounters Encounter Description Practice Location Reason(s) For Visit Diagnoses Date Provider Providers Copied on Encounter OFFICE/OUTPA TIENT VISIT EST [facility], [address], [address], [place] tel:[phone] [facility] Body mass index [BMI] 36.0-36.9, adultAcute bilateral low back pain with left-sided sciaticaOther intervertebral disc displacement, lumbar region 8-202 1 Jyoti Soliman. [address] [place], [place], [id number]. tel:[phone] OFFICE/OUTPA TIENT VISIT EST [facility], [address] [place] [address], [address], tel:[phone] [facility] Body mass index (BMI) 39.0-39.9, adultPain in thoracic spine 0-201 9 Jyoti Soliman. [address] [place], [place], [id number]. tel:[phone] [facility], [address] [place] [address] [place], [address], [place] tel:[phone] [facility] [address] No Information 9 Tadeo Moreira. [address] [facility] [address], [place], [place], [id number]. tel:[phone] OFFICE/OUTPA TIENT VISIT [facility], [address] [address], [place], [address], [place] tel:[phone] [facility] Body mass index (BMI) 32.0-32.9, adultOther chronic postprocedural painCervicalgi aOther specified dorsopathies, cervical region 8 Tadeo Moreira. [address] [facility] [address], [place], [place], [id number]. tel:[phone] OFFICE/OUTPA TIENT VISIT [facility], [address] [place] [address], [address], [place] tel:[phone] [facility] Cervical post-laminecto my syndrome 8 Curylo Jay. [address] [place], [place], [id number]. tel:[phone] OFFICE/OUTPA TIENT VISIT [facility], [address] [address], [place], [address], [place] tel:[phone] [facility] Spinal stenosis of cervical regionCervical giaOther chronic postprocedural painCervical radiculopathy at C5 Jun- 9-201 8 Orencatherine Marie. [address] [place], [place], [address]. tel:[phone] OFFICE/OUTPA TIENT VISIT [facility], [address] [place] [address], [address], [place] tel:[phone] [facility] Cervical post-laminecto my syndrome 0 2-201 8 Curylo Jay. [address] [place], [place], [address]. tel:[phone] [facility], [address], [address], [place] tel:[phone] [facility] CervicalgiaCer vical radiculopathy at M1Kpjcz chronic postprocedural pain 8 Oren Marie. [address] [place], [place], [address]. tel:[phone] OFFICE/OUTPA TIENT VISIT EST [facility], [address] [place] [address], [address], [place] tel:[phone] [facility] Acute pain of left shoulderCervic al post-laminecto my syndrome 8 Curylo Jay. [address] [place], [place], [address]. tel:[phone] [facility], [address] [place] [address], [address], [place] tel:[phone] [facility] No Information 8 Curylo Jay. [address] [place], [place], [id number]. tel:[phone] [facility], [address] [place] [address], [address], [place] tel:[phone] [facility] Cervical post-laminecto my syndromePseuda rthrosis after fusion or arthrodesis 8 Curylo Jay. [address] [place], [place], [address]. tel:[phone] OFFICE/OUTPA TIENT VISIT EST [facility], [address] [place] [address], [address], [place] tel:[phone] [facility] Body mass index (BMI) 33.0-33.9, adultCervical post-laminecto my syndromePseuda rthrosis after fusion or arthrodesis 8 Curylo Jay. [address] [place], [place], [address]. tel:[phone] [facility], [address] [place] [address], [address], [place] tel:[phone] [facility] Cervical post-laminecto my syndrome Oct-3 7 Curylo Jay. [address] [place], [place], [address]. tel:[phone] [facility], [address] [place] [address], [address], [place] tel:[phone] [facility] Cervical post-laminecto my syndrome Sep-2 7 Curylo Jay. [address] [place] [address], [id number]. tel:[phone] [facility], [address] [place] [address], [address], [place] tel:[phone] [facility] Spinal stenosis of cervical region Sep-1 7 Curylo Jay. [address] [place], [place], [address]. tel:[phone] OFFICE/OUTPA TIENT VISIT EST [facility], [address] [place] [address], [address], [place] tel:[phone] [facility] CervicalgiaOth er chronic postprocedural painSpinal stenosis of cervical regionRadiculo orestes of cervical regionOther disturbances of skin sensation Sep-0 - 7 Tadeo Lillie. [address] [place] [address] [address], [place], [place], [id number]. tel:[phone] OFFICE/OUTPA TIENT VISIT EST [facility], [address] [place] [address], [address], [place] tel:[phone] [facility] Lumbago with sciatica, left sideSacroiliit isSpinal stenosis of lumbar regionOther intervertebral disc displacement, lumbar regionLumbago with sciatica, right side Aug-0 7 Oren Marie. [address] [place], [place], [address]. tel:[phone] [facility], [address] [place] [address], [address], [place] tel:[phone] [facility] Lumbago with sciatica, left side 7 Oren Marie. [address] [place], [place], [address]. tel:[phone] [facility], [address], [address], [place] tel:[phone] [facility] [address] No Information 7 Tari Thompson. [address] [place], [place], [address]. tel:[phone] OFFICE/OUTPA TIENT VISIT EST [facility], [address] [place] [address], [address], [place] tel:[phone] [facility] Spinal stenosis of lumbar regionLumbago with sciatica, left sideSacroiliit is 7 Oren Marie. [address] [place], [place], [address]. tel:[phone] OFFICE/OUTPA TIENT VISIT EST [facility], [address] [place] [address], [address], [place] tel:[phone] [facility] Other chronic postprocedural painMidline low back pain without sciaticaSacroi liitisSpinal stenosis of lumbar region 7 Oren Marie. [address] [place], [place], [address]. tel:[phone] [facility], [address] [place] [address], [address], [place] tel:[phone] [facility] SacroiliitisMi dline low back pain without sciaticaSpondy losis without myelopathy or radiculopathy, sacral and sacrococcygeal region 7 Oren Marie. [address] [place], [place], [address]. tel:[phone] [facility], [address] [place] [address], [address], [place] tel:[phone] [facility] Sacroiliitis 0 7 Oren Frank. [address] [place], [place], [address]. tel:[phone] OFFICE/OUTPA TIENT VISIT [facility], [address] [place] [address], [address], [place] tel:[phone] [facility] Lumbago with sciatica, left sideSpinal stenosis of lumbar regionSacroili itisOther chronic postprocedural pain 7 Oren Frank. [address] [place], [place], [address]. tel:[phone] OFFICE/OUTPA TIENT VISIT [facility], [address] [place] [address], [address], [place] tel:[phone] [facility] low back pain (chief complaint) Spinal stenosis of lumbar regionLumbago with sciatica, left sideOther chronic postprocedural pain 6 Oren Frank. [address] [place] [address], [id number]. tel:[phone] Referring Provider: Jay Rodriguez, [address] [place] [address], [address] . tel:[phone] OFFICE/OUTPA TIENT VISIT [facility], [address] [place] [address], [address], [place] tel:[phone] [facility] lumbar-MRI results (chief complaint) Post laminectomy syndrome 6 Tari Thompson. [address] [place] [address], [id number]. tel:[phone] Referring Provider: Jay Rodriguez, [address] [place], [address] . tel:[phone] OFFICE/OUTPA TIENT VISIT [facility], [address] [place] [address], [address], [place] tel:[phone] [facility] Follow Up of lumbar (chief complaint) Post laminectomy syndromeLumbag o with sciatica, left side 3-201 6 Curylo Jay. [address] [place], [place], [address]. tel:[phone] [facility], [address] [place] [address], [address], [place] tel:[phone] [facility] Lumbago with sciatica, left sidePost laminectomy syndromeSpinal stenosis of lumbar region 6 Curylo Jay. [address] [place] [address], [id number]. tel:[phone] OFFICE/OUTPA TIENT VISIT [facility], [address] [place] [address], [address], [place] tel:[phone] [facility] Post laminectomy syndrome Ryan-0 2-201 6 Curylo Jay. [address] [place] [address], [id number]. tel:[phone] OFFICE/OUTPA TIENT VISIT [facility], [address] [place] [address], [address], [place] tel:[phone] [facility] Follow Up of CT Scan lumbar spine (chief complaint) Post laminectomy syndrome July- 3-201 6 Curylo Jay. [address] [place] [address], [id number]. tel:[phone] [facility], [address] [place] [address], [address], [place] tel:[phone] [facility] Post laminectomy syndromeLumbag o with sciatica, left side 6 Curylo Jay. [address] [place], [place], [address]. tel:[phone] [facility], [address] [place] [address], [address], tel:[phone] [facility] Post laminectomy syndrome 6 Curylo Jay. [address] [place], [place], [address]. tel:[phone] [facility], [address] [place] [address], [address], [place] tel:[phone] [facility] Post laminectomy syndrome 6 Curylo Jay. [address] [place], [place], [address]. tel:[phone] OFFICE/OUTPA TIENT VISIT [facility], [address] [place] [address], [facility], [place] tel:[phone] [facility] Spinal stenosis of lumbar region 6 Curylo Jay. [address] [place] [address], [id number]. tel:[phone] OFFICE/OUTPA TIENT VISIT [facility], [address] [place] [address], [address], tel:[phone] [facility] Midline low back pain without sciaticaSpondy lolisthesis of lumbar region 6 Curylo Jay. [address] [place], [place], [address]. tel:[phone] Referring Provider: Jarad Carl, [address] [facility] [address], [place], [address] . tel:[phone] Family History Family Member Type Diagnosis Age At Onset Daughter Problem (finding) Alive and well Daughter Problem (finding) Alive and well Payers Payer name Insurance type Covered alliance party ID Authoriza tion(s) [employer] [address] [id number] Social History Type Description Quantity Date Captured Comments Alcohol Use Details Unknown Caffeine Use Details Unknown Tobacco Use Status Very heavy cigarette smoker (40+ cigs/day) Smoking Status Current every day smoker 2020 Sex Female Vital Signs Date / Time: Height Weight BMI Pulse Rate Blood Pressure Temperature Respiratory Rate Body Surface Area Head Circumference Head Circ. Percentile Wt./Jonn. Percentile BMI percentile Pulse Ox Inhaled Ox 11:32 AM 69.00 in 113.398 kg (250.00 lbs) 36.9 2 kg/m eter (2) Chief Complaint And Reason For Visit No Information Reason For Referral Reason For Referral No Information Plan Of Treatment Date Type Action Status Goal Tobacco cessation counseling completed Referral Ordered: INJ FORAMEN EPIDURAL L/S LT spine, lumbar Appointment date/timeframe: 06/30/2020 ordered Referral Ordered: MRI ANY JT UXTR C-MATRL LT shoulder ordered Referral Ordered: RADEX SPI CRV MINIMUM 4 VIEWS ordered Referral Ordered: RADEX SPI CRV 2/3 VIEWS ordered Referral Ordered: MRI SPI CANAL&CNTS CRV C-MATRL Appointment date/timeframe: 11/21/2016 ordered Referral Ordered: CT CRV SPI C+ MATRL (CV CT Myelogram) Appointment date/timeframe: 11/28/2016 ordered Referral Ordered: MRI SPI CANAL&CNTS LMBR C+ MATRL Appointment date/timeframe: 10/23/2016 ordered Referral Ordered: DESTROY LUMB/SAC FACET JNT Appointment date/timeframe: 04/10/2016 ordered Referral Ordered: MRI SPI CANAL&CNTS C-/C+ LMBR spine, lumbar Appointment date/timeframe: 03/01/2016 ordered Referral Ordered: CT LMBR SPI C+ MATRL (Lumbar CT Myelogram) spine, lumbar Appointment date/timeframe: 11/24/2015 ordered Referral Ordered: CT LMBR SPI C-MATRL spine, lumbar Appointment date/timeframe: 08/06/2015 ordered Referral Ordered: RADEX SPI LUMBOSAC 2/3 VIEWS ordered Referral Ordered: RADEX SPI LUMBOSAC MINIMUM 4 VIEWS ordered Referral Ordered: CT LMBR SPI C+ MATRL (Lumbar CT Myelogram) Bilateral spine, lumbar Appointment date/timeframe: 04/20/2015 ordered Nutrition Recommendation Nutrition / feed ing management completed History Of Present Illness Encounter Date Complaint History Of Prese nt Illness low back pain lumbar-MRI results Follow Up of lumbar Follow Up of CT Scan lumbar spin e Functional Status Date Functional Assessmen t No Information Instructions Date Instruction Additional Infor mation Weight monitoring Related to Bod y mass index [BMI] 36.0-36.9, adult Giving encouragement to exercise Related to Body mass index (BMI) 39.0-39.9, adult Activity as tolerated. Related t o Pain in thoracic spine Avoid prolonged bed rest. Relate d to Pain in thoracic spine Giving encouragement to exercise Related to Body mass index (BMI) 32.0-32.9, adult Take medication as prescribed. R elated to Cervical post-laminectomy syndrome Activity as tolerated. Related t o Cervical post-laminectomy syndrome Avoid prolonged bed rest. Relate d to Cervical post-laminectomy syndrome Avoid prolonged bed rest. Relate d to Cervical post-laminectomy syndrome Take medication as prescribed. R elated to Cervical post-laminectomy syndrome Activity as tolerated. Related t o Cervical post-laminectomy syndrome Activity as tolerated. Related t o Other chronic postprocedural pain Avoid prolonged bed rest. Relate d to Other chronic postprocedural pain Take medication as prescribed. R elated to Other chronic postprocedural pain elevate higher than your heart R elated to Acute pain of left shoulder immobilize if directed Related t o Acute pain of left shoulder home exercise program Related to Acute pain of left shoulder activity as tolerated Related to Acute pain of left shoulder apply heating pad or ice as tolerated Related to Acute pain of left shoulder Activity as tolerated. Related t o Cervical post-laminectomy syndrome Avoid prolonged bed rest. Relate d to Cervical post-laminectomy syndrome Take medication as prescribed. R elated to Cervical post-laminectomy syndrome Giving encouragement to exercise Related to Body mass index (BMI) 33.0-33.9, adult Activity as tolerated. Related t o Cervical post-laminectomy syndrome Avoid prolonged bed rest. Relate d to Cervical post-laminectomy syndrome Take medication as prescribed. R elated to Cervical post-laminectomy syndrome Avoid prolonged bed rest. Relate d to Cervical post-laminectomy syndrome Take medication as prescribed. R elated to Cervical post-laminectomy syndrome Activity as tolerated. Related t o Cervical post-laminectomy syndrome Activity as tolerated. Related t o Spinal stenosis of lumbar region Take medication as directed. Rel ated to Spinal stenosis of lumbar region Activity as tolerated. Related t o Post laminectomy syndrome Avoid prolonged bed rest. Relate d to Post laminectomy syndrome Take medication as prescribed. R elated to Post laminectomy syndrome Assessments Type Assessment Date assessment Body mass index [BMI] 36.0-36.9, adult assessment Acute bilateral low back pain wi th left-sided sciatica assessment Other intervertebral disc displa cement, lumbar region Patient Care Teams Name Effective Dates (start - stop) Status Members No Information
--- OUTSIDE RECORDS SUMMARY | 2024-08-09 14:05 | XMS_ITS | Encounter Summary ---
Author Organization [facility] Address [address] [place] [address] Care Team Providers Care Senior It Architect Name Role Phone Chago Randolph MD Unavailable Christelle Huertas DO Primary Care Provider [phone] Zachary Hurley MD Unavailable Betzaida Subramanian NP Unavailable [phone] Naveed Fernandez MD Primary Care Provider Yony Barker MD Unavailable Osvaldo Feldman MD Unavailable [phone] Aminah Cheung OD Unavailable Jay Marc MD Unavailable [phone] Flori Sotelo Unavailable Kostas Lr MD Unavailable [phone] Jay Marc MD Unavailable [phone] Reason for Visit * Reason Onset Date Comments Scheduling Appointments 08/04/2020 Confirmi ng mammogram appt- no answer Encounter Details Date Type Department Care Team (Late st Contact Info) Description 08/04/2020 Telephone [facility] [address] [place] [id number] Emma Blank RT Scheduling Appointments (Confirming mammogram appt- no answer ) Social History Tobacco Use Types Packs/Day Years Used Date Smoking Tobacco: Heavy Smoker Cigarettes 1 47.4 Started: 03/19/1977 Smokeless Tobacco: [...] file 01/30/2020 How often do you attend yazidism or alevism serv ices? Never 01/30/2020 Do you belong to any clubs o r organizations such as yazidism groups, unions, fraternal or athletic groups, or [...] on file Legal Sex Female 1:21 PM [employer] Gender Identity Female 05/05/2022 8:09 AM [employer] Sexual Orientation Straight 11/04/2018 1: 20 PM [...] documented as of this encounter Care Teams Senior It Architect Relationship Specialty Start Date End Date Christelle HuertasDO [address] [facility] [address] [place] [address] PCP - General Family Medicine 01/21/19 09/11/21 Naveed Fernandez MD 1 [address] [facility] [address] [place] [address] PCP - General Internal Medicine 10/14/21 [place] [address] [facility] [address] [place] [address] Consulting Physician Endocrinology Diabetes & Metabolism 01/21/19 [place] [address] [facility] [address] [place] [address] Referring Physician Psychiatry 01/21/19 Betzaida Subramanian NP [address] [facility] [address] JESÚS Hu [facility] [address] [place] [address] Nurse Practitioner Obstetrics and Gynecology 01/04/21 04/20/24 Yony Barker MD [address] [facility] [address] [place] [address] Referring Physician Pain Management 06/16/22 10/25/22 [place] [address] [place] [address] Consulting Physician Pain Management 09/25/22 Aminah Cheung OD [address] [place] [address] Consulting Physician Optometry 01/18/23 Jay Marc MD [address] [place] [address] Surgeon Orthopedic Surgery 04/20/23 04/20/24 Flori Sotelo PA [address] [place] [id number] Physician Sizer Hand Pulmonary Disease 01/26/24 Kostas Lr MD [address] [place], [place] [id number] Consulting Physician Cardiology 02/22/24 Jay Marc MD [address] [place] [address] Surgeon Orthopedic Surgery 04/21/24 documented as of this encounter
--- OUTSIDE RECORDS SUMMARY | 2024-08-09 14:05 | XMS_ITS | Encounter Summary ---
Author Organization [facility] Healthcare Address [facility]0 [place] [address] Care Team Providers Care Law Office Receptionist Name Role Phone Chago Randolph MD Unavailable Zachayr Hurley MD Unavailable Naveed Fernandez MD Primary Care Provider [phone] Osvaldo Feldman MD Unavailable Aminah Cheung OD Unavailable Flori Sotelo Unavailable Kostas Lr MD Unavailable Jay Marc MD Unavailable [phone] Encounter Details Date Type Department Care Team (Late st Contact Info) Description 08/06/2024 Results Follow-Up [facility] [address] [place] [address] Naveed Fernandez MD [address] [place] [address] DIABETES EYE EXAM Social History Tobacco Use Types Packs/Day Years [...] file 01/30/2020 How often do you attend orthodox or sabianism serv ices? 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 Sexual Orientation Straight 11/04/2018 1: 20 PM CDT Occupation Industry Job Start Date Job End Date disabled Not on file Not on file Not on file documented as of this encounter Plan of Treatment Not on file documented as of this encounter Visit Diagnoses Not on filedocumented in this encounter Care Teams Law Office Receptionist Relationship Specialty Start Date End Date Naveed Fernandez MD [address] [facility] [address] [place] [address] PCP - General Internal Medicine 10/14/21 [place] [address] [facility] [facility] [address] [place] [address] Consulting Physician Endocrinology Diabetes & Metabolism 01/21/19 [place] [address] [address] [facility] [address] [place] [address] Referring Physician Psychiatry 01/21/19 [place] [address] [facility] [address] [address] [place] [address] Consulting Physician Pain Management 09/25/22 Aminah Cheung OD [address] [place] [address] Consulting Physician Optometry 01/18/23 Flori Sotelo PA [address] [place] [address] Physician Finisher Hot Strip Pulmonary Disease 01/26/24 Kostas Lr MD [address] [place] [address] Consulting Physician Cardiology 02/22/24 Jay Marc MD [address] [facility] [address] [place] [address] Surgeon Orthopedic Surgery 04/21/24 documented as of this encounter
--- OUTSIDE RECORDS SUMMARY | 2024-08-09 14:05 | XMS_ITS | Encounter Summary ---
Author Organization [facility] Healthcare Address [facility]7 [place] [address] Care Team Providers Care Electrician Ship Name Role Phone Chago Randolph MD Unavailable Zachary Hurley MD Unavailable [phone] Naveed Fernandez MD Primary Care Provider Osvaldo Feldman MD Unavailable Aminah Cheung OD Unavailable Flori Sotelo Unavailable [phone] Kostas Lr MD Unavailable [phone] Jay Marc MD Unavailable [phone] Reason for Visit * Reason Onset Date Comments Wegovy 07/31/2024 Encounter Details Date Type Department Care Team (Late st Contact Info) Description 07/31/2024 Telephone [facility] Medical [facility] [address] [place] [address] Naveed Fernandez MD [address] [place] [address] Erik Social History Tobacco Use Types Packs/Day Years [...] file 01/30/2020 How often do you attend pentecostalism or jain serv ices? Never 01/30/2020 Do you belong to any clubs o r organizations such as pentecostalism groups, unions, fraternal or athletic groups, or [...] on file Legal Sex Female 1:21 PM SHOWER DOORS AND PANELS FABRICATOR Gender Identity Female 05/05/2022 8:09 AM SHOWER DOORS AND PANELS FABRICATOR Sexual Orientation Straight 11/04/2018 1: 20 PM CDT Occupation Industry Job Start Date Job End Date disabled Not on file Not on file Not on file documented as of this encounter Ordered Prescriptions Prescription Sig Dispense Quantity Refills Last Filled Start Date End Date semaglutide (WEGOVY) 0.5 mg/0.5 mL auto-injectorIndic ations:Weight Loss Management for Obese Patient (BMI >= 30) Inject 0.25 mg under the skin every 7 days 2 mL 5 08/01/2024 08/04/2024 documented in this encounter Miscellaneous Notes * Telephone Encounter - Rachael Dan RN - 08/08/2024 1:47 PM CDT Ok for Ozempic? Please advise. * Telephone Encounter - Lay Tidwell - 08/08/2024 10:32 AM CDT Insurance will not approve wegovy, please send a new prescription for Ozempic * Telephone Encounter - Rachael Dan RN - 08/04/2024 9:09 AM CDT Pt aware that Rx has been sent. * Telephone Encounter - Naeved Fernandez MD - 08/01/2024 5:53 PM CDT Rx sent. * Telephone Encounter - Jeannette Paredes LPN - 07/31/2024 4:20 PM CDT Pt states she was never on Wegovy, she wants to know if [facility] can send Wegovy to the pharmacy to see if it is cheaper out of pocket than the Mounjaro. To [facility] - Please advise. * Telephone Encounter - Naveed Fernandez MD - 07/31/2024 3:54 PM CDT What was the most recent dose of Wegovy. If she has been off of it for awhile, we will need to start lower than that. * Telephone Encounter - Chelsy Walton - 07/31/2024 9:12 AM CDT Patient called stating that Mounjaro is too expensive. Asking to go back to Wegovy. States that it is $210 for one month supply. [phone] documented in this encounter Plan of Treatment Not on file documented as of this encounter Visit Diagnoses Diagnosis Class 3 severe obesity due to excess calories with serious comorbidity and body mass index (BMI) of 40.0 to 44.9 in adult- Primary documented in this encounter Discontinued Medications Medication Sig Discontinue Reason Start Date End Da te tirzepatide (Mounjaro) 2.5 mg/0.5 mL pen injector injectionIndications:T ype 2 diabetes mellitus with hyperglycemia, without long-term current use of insulin (HCC) Inject 0.5 mL (2.5 mg total) under the skin every 7 days No longer taking - Do not display on AVS 07/30/2024 08/01/2024 documented as of this encounter Care Teams Electrician Ship Relationship Specialty Start Date End Date Naveed Fernandez MD [address] [place] [address] PCP - General Internal Medicine 10/14/21 [place] [address] [address] [address] Consulting Physician Endocrinology Diabetes & Metabolism 01/21/19 [place] [address] [place] [address] Referring Physician Psychiatry 01/21/19 [place] [address] [place] [address] Consulting Physician Pain Management 09/25/22 Aminah Cheung OD [address] [place] [address] Consulting Physician Optometry 01/18/23 Flori Sotelo PA [address] [place] [address] [id number] Physician Insulation Inspector Pulmonary Disease 01/26/24 Kostas Lr MD [address] [place] [address] Consulting Physician Cardiology 02/22/24 Jay Marc MD [address] [place] [address] Surgeon Orthopedic Surgery 04/21/24 documented as of this encounter
--- OUTSIDE RECORDS SUMMARY | 2024-08-09 14:05 | XMS_ITS | Encounter Summary ---
Author Organization [facility] Address [address] [place] [address] Care Team Providers Care Independent Contractor Name Role Phone Naveed Fernandez MD Primary Care Provider Unavail able Encounter Details Date Type Department Care Team (Late st Contact Info) Description 06/04/2023 Telephone [facility] [address] [place] [address] [place] [id number] [place] [address] Social History Tobacco Use Types Packs/Day [...] than three times a week 04/20/2023 Attends Denominational Services Not on file 04/20 Active Member [...] PM CDT Legal Sex Female 4:52 AM ENCHILADA MAKER Gender Identity Female 01/14/2024 8:12 PM CDT Sexual Orientation Choose not to disclose 2023 8:12 PM CDT documented as of this encounter Miscellaneous Notes * Telephone Encounter - Rand Abrams RN - 06/04/2023 3:45 PM CDT Call out to [facility] and spoke with Yasir wound vac placed on hold. documented in this encounter Plan of Treatment Not on file documented as of this encounter Visit Diagnoses Not on filedocumented in this encounter Additional Health Concerns Infection Onset Date Last Indicated Resolved Time R/O Respiratory 02/10/2024 02/10/2024 02/10/2024 8 :05 PM ENCHILADA MAKER R/O Respiratory 03/31/2024 03/31/2024 03/31/2024 5 :16 PM ENCHILADA MAKER COVID-19 03/31/2024 03/31/2024 04/20/2024 1:16 AM ENCHILADA MAKER R/O C. diff 04/01/2024 04/01/2024 04/02/2024 3:00 AM ENCHILADA MAKER documented as of this encounter Care Teams Independent Contractor Relationship Specialty Start Date End Date Naveed Fernandez MD PCP - General Internal Medicine 04/21/23 Flori Mcdonald Nurse Practitioner Pulmonology 04/06/23 documented as of this encounter
--- OUTSIDE RECORDS SUMMARY | 2024-08-09 14:05 | XMS_ITS | Continuity of Care Document ---
Author Organization [facility] Address [address] [place] [address] [address] [place] [address] Phone Care Team Providers Care Wire Threader Name Role Phone Shane PT, Edvin Unavailable Unavailable Procedures Procedure Date Therapeutic Activities Neuromuscular Re-Ed Therapeutic Activities Neuromuscular Re-Ed Therapeutic Exercise Therapeutic Activities Neuromuscular Re-Ed Therapeutic Exercise Doc neg elder mal no plan PT Evaluation High Complexity Therapeutic Activities Neuromuscular Re-Ed Therapeutic Exercise THERAPEUTIC EXERCISES MANUAL THERAPY THERAPEUTIC EXERCISES MANUAL THERAPY HOT/COLD PACK ELECTRIC STIMULATION UNATT PT EVALUATION THERAPEUTIC EXERCISES MANUAL THERAPY HOT/COLD PACK ELECTRIC STIMULATION UNATT Changing And Maintaining Body Position-C urrent Changing And Maintaining Body Position-G oal Medications Name Dose Freq Route DOC Feb Pain Assess Positive DOC 2015 BMI High F/U Plan DOC Functional Outcome Assessmen t documented, deficits identified, treatment plan es PT EVALUATION THERAPEUTIC EXERCISES MANUAL THERAPY Carrying, Moving And Handling Objects-Cu rrent Carrying, Moving And Handling Objects-Go al Medications Name Dose Freq Route DOC Jun Pain Assess Positive -12/26 DOC 2015 BMI High F/U Plan DOC Functional Outcome Assessmen t documented, deficits identified, treatment plan es Advance Directives Directive Yes / No Effective Date File Name No Information Encounters Encounter Description Practice Location Reason(s) For Visit Diagnoses Date Provider Providers Copied on Encounter [facility] [address] [place] [address], [id number], tel:[phone] [place] No Information 3 Shane Frenchyn. . Referring Provider: Jay Marc, [address] [place] [address], [address]. tel:[phone], [id number], tel:[phone] [place] No Information 3 Shane Edvin. . Referring Provider: Jay Marc, [address] [place] [address], [address]. tel:[phone], [id number], tel:[phone] [place] No Information 3 Shane Edvin. . Referring Provider: Jay Marc, [address] [place] [address], [address]. tel:[phone], [id number], tel:[phone] [place] No Information 3 Shane Edvin. . Referring Provider: Jay Marc, [address] [place] [address] [place] [address], [id number]. tel:[phone] [facility] [address], [id number], tel:[phone] [place] No Information 7 Yesenia Stein. [address] [place] [address], [address], [place], [facility], . tel: [phone] Referring Provider: Jay Marc, [address] [place] [address] [place] [address], [facility]. tel:[phone] [facility] [address], [id number], tel:[phone] [place] No Information 7 Nohelia Cerda. [address] [place] [address], [address], [facility], . tel:[phone] Referring Provider: Jay Marc, [address] [place] [address] [place] [address], [facility]. tel:[phone] [facility] [address] [place] [address], [id number], tel:[phone] [place] Lumbago with sciatica, left sideOth symptoms and signs involving the musculoskeletal systemMyalgiaPostlam inectomy syndrome, not elsewhere classified Dec 6 Nohelia Cerda. [address] [place] [address], [facility] [address], [place], [facility], . tel:[phone] Referring Provider: Jay Marc, [address] [place] [address] [place] [address], [facility]. tel:[phone] [facility] [address], [id number], tel:[phone] [place] Stiffness of unspecified joint, not elsewhere classifiedDisorder of muscle, unspecifiedMuscle weakness (generalized)Interve rtebral disc disorders with myelopathy, lumbar region Jun- 6 Nohelia Cerda. [address] [facility], [address], [place], [address], [place]. tel: [phone] Referring Provider: Jay Marc, [address] [facility] [address] [place], [address]. tel:[phone] Family History Family Member Type Diagnosis Age At Onset No Information Payers Payer name Insurance type Covered libertarian ID Samuel hernández(s) [place] Medicare Replacement CI [id number] Social History Type Description Quantity Date Captured Comments Sex Female Smoking Status No Information Chief Complaint And Reason For Visit No Information Reason For Referral Reason For Referral No Information Plan Of Treatment Date Type Action Status Goal Tobacco Cessation Counseling completed Goal Tobacco cessation counseling completed Referral Ordered: Depression: Depression management program timeframe: 1 Day. (related to Depression) ordered Referral Ordered: Clinical Psychology (related to Depression) ordered Referral Ordered: Referrals: Specialist. Evaluate and Treat (related to Adjustment disorder with depressed mood) ordered History Of Present Illness Encounter Date Complaint History Of Prese nt Illness No Information Functional Status Date Functional Assessmen t No Information Instructions Date Instruction Additional Infor mation Dietary needs education Related to Overweight Prescribed activity/exercise edu cation Related to Overweight Assessments Type Assessment Date No Information Patient Care Teams Name Effective Dates (start - stop) Status Members No Information
--- OUTSIDE RECORDS SUMMARY | 2024-08-09 14:05 | XMS_ITS | Encounter Summary ---
Author Organization [facility] Address [address] [place] [address] Phone Care Team Providers Care Mold Presser Name Role Phone Chago Randolph MD Unavailable Zachary Hurley MD Unavailable Betzaida Subramanian NP Unavailable [phone] Naveed Fernandez MD Primary Care Provider [phone] Yony Barker MD Unavailable Osvaldo Feldman MD Unavailable Aminah Cheung OD Unavailable Jay Marc MD Unavailable Flori Sotelo Unavailable Kostas Lr MD Unavailable Jay Marc MD Unavailable Encounter Details Date Type Department Care Team (Late st Contact Info) Description 10/25/2021 Orders Only [facility] [address] [place] [address] Naveed Fernandez MD [address] [place] [address] Social History Tobacco Use Types [...] file 01/30/2020 How often do you attend oriental orthodox or temple serv ices? Never 01/30/2020 Do you belong to any clubs o r organizations such as oriental orthodox groups, unions, fraternal or athletic groups, [...] on file Legal Sex Female 1:21 PM SANITATION WORKER CLEANING EQUIPMENT Gender Identity Female 05/05/2022 8:09 AM SANITATION WORKER CLEANING EQUIPMENT Sexual Orientation Straight 11/04/2018 1: 20 PM [...] documented as of this encounter Care Teams Mold Presser Relationship Specialty Start Date End Date Naveed Fernandez MD [address] [facility] [address] [place] [address] PCP - General Internal Medicine 10/14/21 [place] [address] [facility] [address] [place] [address] Consulting Physician Endocrinology Diabetes & Metabolism 01/21/19 [place] [address] [facility] [address] [place] [address] Referring Physician Psychiatry 01/21/19 Betzaida Subramanian, [place] [address] [address] [facility] [address] [place] [address] Nurse Practitioner Obstetrics and Gynecology 01/04/21 04/20/24 Yony Barker MD [address] [facility] [address] [place] [address] Referring Physician Pain Management 06/16/22 10/25/22 [place] [address] [facility] [address] [place] [address] Consulting Physician Pain Management 09/25/22 Aminah Cheung OD [address] [facility] [place] [address] Consulting Physician Optometry 01/18/23 Jay Marc MD [address] [place] [address] Surgeon Orthopedic Surgery 04/20/23 04/20/24 Flori Sotelo PA [address] [place] [address] [id number] Physician Substance Abuse Services Director Pulmonary Disease 01/26/24 Kostas Lr MD [address] [place], [place] [address] Consulting Physician Cardiology 02/22/24 Jay Marc MD [address] [place] [address] Surgeon Orthopedic Surgery 04/21/24 documented as of this encounter
--- OUTSIDE RECORDS SUMMARY | 2024-08-09 14:05 | XMS_ITS | Encounter Summary ---
Author Organization [facility] Healthcare Address [facility] [place] [address] Care Team Providers Care Student Records Specialist Name Role Phone Chago Randolph MD Unavailable Zachary Hurley MD Unavailable Naveed Fernandez MD Primary Care Provider [phone] Osavldo Feldman MD Unavailable [phone] Aminah Cheung OD Unavailable [phone] Flori Sotelo Unavailable Kostas Lr MD Unavailable Jay Marc MD Unavailable Encounter Details Date Type Department Care Team (Late st Contact Info) Description 07/15/2024 Results Follow-Up [facility] Medical Group [facility] [address] [place] [address] Naveed Fernandez MD [address] [place] [address] SCAN - LABS Social History Tobacco Use Types Packs/Day Years [...] How often do you attend pentecostalism or alevism serv ices? Never 01/30/2020 Do [...] on file Legal Sex Female 1:21 PM LEVELING MACHINE OPERATOR Gender Identity Female 05/05/2022 8:09 AM LEVELING MACHINE OPERATOR Sexual Orientation Straight 11/04/2018 1: 20 PM CDT Occupation Industry Job Start Date Job End Date disabled Not on file Not on file Not on file documented as of this encounter Plan of Treatment Not on file documented as of this encounter Visit Diagnoses Not on filedocumented in this encounter Care Teams Student Records Specialist Relationship Specialty Start Date End Date Naveed Fernandez MD [address] [facility] [address] [place] [address] PCP - General Internal Medicine 10/14/21 [place] [address] [address] [facility] [address] [place] [address] Consulting Physician Endocrinology Diabetes & Metabolism 01/21/19 [place] [address] [address] [facility] [address] [place] [address] Referring Physician Psychiatry 01/21/19 [place] [address] [facility] [address] [place] [address] Consulting Physician Pain Management 09/25/22 Aminah Cheung OD [address] [facility] [place] [address] Consulting Physician Optometry 01/18/23 Flori Sotelo PA [address] [place] [address] Physician Mining Detail Draftsperson Pulmonary Disease 01/26/24 Kostas Lr MD [address] [place] [address] Consulting Physician Cardiology 02/22/24 Jay Marc MD [address] [facility] [address] [place] [address] Surgeon Orthopedic Surgery 04/21/24 documented as of this encounter
--- OUTSIDE RECORDS SUMMARY | 2024-08-09 14:05 | XMS_ITS | Encounter Summary ---
Author Organization [facility] Address [address] [place] [address] Care Team Providers Care Paper Feeder Name Role Phone Naveed Fernandez MD Primary Care Provider Unavail able Encounter Details Date Type Department Care Team (Late st Contact Info) Description 09/30/2003 Outpatient [facility] [address] [place] [address] David Young MD [address] [address] Social History Tobacco Use Types Packs/Day Years Used Date Smoking Tobacco: Never Assessed Comments Unknown Sex and Gender Information Value Date Recorded Sex Assigned at Female 01/14/2024 8:12 PM CDT Legal Sex Female 4:52 AM STUDENT DEVELOPMENT ADVISOR Gender Identity Female 01/14/2024 8:12 PM CDT Sexual Orientation Choose not to disclose 2023 8:12 PM CDT documented as of this encounter Plan of Treatment Not on file documented as of this encounter Visit Diagnoses Not on filedocumented in this encounter Additional Health Concerns Infection Onset Date Last Indicated Resolved Time R/O Respiratory 02/10/2024 02/10/2024 02/10/2024 8 :05 PM STUDENT DEVELOPMENT ADVISOR R/O Respiratory 03/31/2024 03/31/2024 03/31/2024 5 :16 PM STUDENT DEVELOPMENT ADVISOR COVID-19 03/31/2024 03/31/2024 04/20/2024 1:16 AM STUDENT DEVELOPMENT ADVISOR R/O C. diff 04/01/2024 04/01/2024 04/02/2024 3:00 AM STUDENT DEVELOPMENT ADVISOR documented as of this encounter Care Teams Paper Feeder Relationship Specialty Start Date End Date Naveed Fernandez MD PCP - General Internal Medicine 04/21/23 Flori Mcdonald Nurse Practitioner Pulmonology 04/06/23 documented as of this encounter
--- OUTSIDE RECORDS SUMMARY | 2024-08-09 14:05 | XMS_ITS | Encounter Summary ---
Author Organization [facility] Healthcare Address [facility] [place] [address] Care Team Providers Care Tile Setter Apprentice Name Role Phone Chago Randolph MD Unavailable Zachary Hurley MD Unavailable Naveed Fernandez MD Primary Care Provider [phone] Osvaldo Feldman MD Unavailable Aminah Cheung OD Unavailable [phone] Flori Sotelo Unavailable Kostas Lr MD Unavailable [phone] Jay Marc MD Unavailable [phone] Encounter Details Date Type Department Care Team (Late st Contact Info) Description 07/18/2024 Results Follow-Up [facility] [address] [place] [id number] Naveed Fernandez MD [address] [place] [address] Urinalysis reflex to microscopic and culture Urine, clean voided Social History Tobacco Use Types Packs/Day Years [...] file 01/30/2020 How often do you attend religious or yazidism serv ices? Never 01/30/2020 Do you belong to any clubs o r organizations such as religious groups, unions, fraternal or athletic groups, or [...] on file Legal Sex Female 1:21 PM PRODUCTION ASSEMBLY SUPERVISOR Gender Identity Female 05/05/2022 8:09 AM PRODUCTION ASSEMBLY SUPERVISOR Sexual Orientation Straight 11/04/2018 1: 20 PM CDT Occupation Industry Job Start Date Job End Date disabled Not on file Not on file Not on file documented as of this encounter Plan of Treatment Not on file documented as of this encounter Visit Diagnoses Not on filedocumented in this encounter Care Teams Tile Setter Apprentice Relationship Specialty Start Date End Date Naveed Fernandez MD [address] [facility] [address] [place] [address] PCP - General Internal Medicine 10/14/21 [place] [address] [facility] [address] [place] [address] Consulting Physician Endocrinology Diabetes & Metabolism 01/21/19 [place] [address] [address] [facility] [address] [place], [place] [id number] Referring Physician Psychiatry 01/21/19 [place] [address] [facility] [address] [place] [address] Consulting Physician Pain Management 09/25/22 Aminah Cheung OD [address] [place] [address] Consulting Physician Optometry 01/18/23 Flori Sotelo PA [address] [address] Physician Sammying Machine Operator Pulmonary Disease 01/26/24 Kostas Lr MD [address] [facility] [address] [place] [address] Consulting Physician Cardiology 02/22/24 Jay Marc MD [address] [facility] [address] [place] [phone] Surgeon Orthopedic Surgery 04/21/24 documented as of this encounter
--- OUTSIDE RECORDS SUMMARY | 2024-08-09 14:05 | XMS_ITS | Clinical Summary ---
Author Organization [facility] Address [address] [place] [address] Care Team Providers Care Splitting Machine Tender Name Role Phone Naveed Fernandez MD Primary Care Provider [phone] Source Comments [facility],non-owned Affiliates and Associated Physician Practices is amultiple site organization consisting of ambulatory clinics and hospital sitesin [place], [place], [place] and [place]. This disclosure is being madepursuant to the Care Everywhere program and may not contain all information available regarding this patient. Last updated 17.[facility] Allergies Active Allergy Reactions Criticality Noted Date Comments [place] Other Low 01/31/2015 tremors severe shakes Powdered [...] Active vitamin D, ergocalciferol, (DRISDOL) 1.25 MG (31175 UT) capsule Take 1 (one) capsule by [...] (10/18/2020): Last Assessment & Plan: Prescriptions sent. Oxacu-ic-dglout exercises encouraged once pain level decreases. Return to clinic if no resolution of pain. Hyperhidrosis 08/06/2020 Overview (10/18/2020): Last Assessment & Plan: Recent labs were all within normal range with exception of her TSH which was slightly elevated. She was seen by the nurse practitioner at that time who increased her levothyroxine to 150 mcg daily. Patient does have a county historian, advised patient to follow-up with county historian. She is taking a medication, Cytomel, which has a common side effect of diaphoresis. Encouraged patient to speak to her county historian about possibly discontinuing this medication. Memory loss 01/19/2020 Hyperplastic polyp of sigmoid colon 01/01/2020 Overview (10/18/2020): Colonoscopy 04/23/2017 [facility] everywhere Chronic migraine without aur a without [...] in your mouth on an sophie like cityguru or Naymiti carries a zero net carb bread If [...] in much longer they will become mushy [place]anner and/or coconut flour instead of regular flour [...] pork rinds For yogurt, try Two Good turkmen yogurt Use Pinterdarren for recipe ideas. Type [...] in much longer they will become mushy [place] and/or coconut flour instead of regular flour [...] pork rinds For yogurt, try Two Good turkmen yogurt Use Pinterest for recipe ideas. Type [...] on file Legal Sex Female 5:53 AM APPRENTICE ELECTRICIAN Gender Identity Not on file Sexual Orientation Not on file Last Filed Vital Signs Vital Sign Reading Time Taken Comments Blood Pressure 129/80 01/24/2023 2:24 PM APPRENTICE ELECTRICIAN Pulse 81 01/24/2023 2:24 PM APPRENTICE ELECTRICIAN Temperature 36.7 C (98.1 F) 08/01/2012 5:43 AM CDT Respiratory Rate 16 01/24/2023 2:24 PM APPRENTICE ELECTRICIAN Oxygen Saturation 93% 01/24/2023 2:24 PM APPRENTICE ELECTRICIAN Inhaled Oxygen Concentration - - Weight 117.9 [...] - 1.0 mg/dL 07/30/2012 1:37 PM CDT [facility] Blood specimen (specimen) BLOOD SPECIMEN / Unknown 07/30/2012 1:05 PM CDT 07/30/2012 1:15 PM CDT Dorita Gilliam PA-C LAB - CHEMISTRY ORDERABLES Fin al Result [facility] [address] [place] [address] from Last 3 Months or Most Recently Relevant to Health Maintenance Insurance [facility] AETNA MEDICARE ADV AETNA ANTHEM ANTHEM Advance Directives * FULL RESUSCITATION (Latest Code Status on File) Date Activated Date Inactivated Comments 07/30/2012 6:15 PM 08/01/2012 12:40 PM Care Teams Splitting Machine Tender Relationship Specialty Start Date End Date Naveed Fernandez MD [address] [place] [address] PCP - General Infectious Disease 12/20/22
--- OUTSIDE RECORDS SUMMARY | 2024-08-09 14:05 | XMS_ITS | Encounter Summary ---
Author Organization [facility] Healthcare Address [facility] [place] [address] Care Team Providers Care Precision Farming Coordinator Name Role Phone Chago Randolph MD Unavailable Zachary Hurley MD Unavailable Naveed Fernandez MD Primary Care Provider Osvaldo Feldman MD Unavailable Aminah Cheung OD Unavailable [phone] Flori Sotelo Unavailable Kostas Lr MD Unavailable Jay Marc MD Unavailable Encounter Details Date Type Department Care Team (Late st Contact Info) Description 06/24/2024 Results Follow-Up [facility] [address] [place] [address] Naveed Fernandez MD [address] [place] [address] T4, free, TSH, Vitamin D 25 hydroxy, Additional followed-up results: 7 Social History Tobacco Use Types Packs/Day Years [...] file 01/30/2020 How often do you attend judaism or baptism serv ices? 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 TECHNICIAN Sexual Orientation Straight 11/04/2018 1: 20 PM CDT Occupation Industry Job Start Date Job End Date disabled Not on file Not on file Not on file documented as of this encounter Plan of Treatment Not on file documented as of this encounter Visit Diagnoses Not on filedocumented in this encounter Care Teams Precision Farming Coordinator Relationship Specialty Start Date End Date Naveed Fernandez MD [address] [facility] [address] [place] [address] PCP - General Internal Medicine 10/14/21 [place] [address] [facility] [facility] [address] [place] [address] Consulting Physician Endocrinology Diabetes & Metabolism 01/21/19 [place] [address] [address] [facility] [address] [place] [address] Referring Physician Psychiatry 01/21/19 [place] [address] [facility] [address] [place] [address] Consulting Physician Pain Management 09/25/22 Aminah Cheung OD [address] [place] [address] Consulting Physician Optometry 01/18/23 Flori Sotelo PA [address] [facility] [address] [place] [address] Physician Hoop Rolls Operator Pulmonary Disease 01/26/24 Kostas Lr MD [address] [place] [address] Consulting Physician Cardiology 02/22/24 Jay Marc MD [address] [facility] [address] [place] [phone] Surgeon Orthopedic Surgery 04/21/24 documented as of this encounter
--- OUTSIDE RECORDS SUMMARY | 2024-08-09 14:05 | XMS_ITS | Clinical Summary ---
Author Organization [facility] Address [address] [place] [address] Phone Care Team Providers Care Mis Specialist Name Role Phone Afshin Willis MD Unavailable [phone] Kenyatta Comer MD Primary Care Provider [phone] Sumanth Chan MD Unavailable Allergies Active Allergy Reactions Criticality Noted Date Comments [place] Other (see Comments) 01/31/2015 Other Itching 02/24/2015 [...] [facility] - General Surgery - [place] [address] [phone] Sumanth Chan MD Skin tag (Primary Dx); [...] Date Smoking Tobacco: Every Day Cigarettes 0.8 49.4 Started: 1975 Smokeless Tobacco: Never Alcohol Use [...] on patient's age to complete this topic Human Papillomavirus (HPV) Immunization Aged Out No longer eligible based [...] 3:03 PM CDT Skin tag [facility] SCREENING BILATERAL DIGITAL W CAD W VERA Routine 04/15/2018 1:04 PM FSR Encounter for screening mammogram for malignant neoplasm [...] was put on. She tolerated procedure well. us Sumanth Chan MD PROCEDURE/MINOR SURGICAL ORDERAB LES Final Result * [facility] SCREENING BILATERAL DIGITAL W CAD W VERA (04/15/2018 1:04 PM FSR) Anatomical Region Laterality Modality breast Bilateral Mammography 04/15/2018 6:06 AM FSR Narrative 05/08/2018 9:53 AM FSR - [facility] SCREENING BILATERAL DIGITAL W CAD [...] to exams dated: 04/10/2017, 11/10/2016, and 10/07/2015 [facility]. BREAST TISSUE:There are scattered fibroglandular densities in [...] exam. Electronically signed by: Yrn syed/regla:05/08/2018 08:57:19 Rn Immunology: Sidra Buck)(M), [facility] letter sent: Normal Exam Reading location: [facility] BI-RADS: 1 Negative Procedure Note Yrn Burr MD - 05/08/2018 - [facility] SCREENING BILATERAL DIGITAL W CAD W VERA [...] to exams dated: 04/10/2017, 11/10/2016, and 10/07/2015 [facility]. BREAST TISSUE:There are scattered fibroglandular densities in [...] next screening exam. Electronically signed by: Yrn syed/penrad:05/08/2018 08:57:19 Rn Immunology: Sidra Buck)(M), [facility] letter sent: Normal Exam Reading location: [facility] BI-RADS: 1 Negative us Cher Garcia MD IMG MAMMO ORDERABLE S [...] Gtz M.D. Radiologist RB:jason BAG Procedure Note Zhane Ragsdale MD - 06/23/2015 EXAMINATION: CT chest with [...] 2. Severe hepatic steatosis. Baron Bansal MD [facility] ORDERABLES Final Res ult from Last 3 Months or Most Recently Relevant to Health Maintenance Insurance MEDICARE [facility] Care Teams Mis Specialist Relationship Specialty Start Date End Date Kenyatta Comer MD [address] [facility] [address] [place] [address] PCP - General Internal Medicine 03/02/17 Afshin Willis MD General Surgery 05/17/16 Sumanth Chan MD [address] [address] Consulting Physician Colon and Rectal Surgery 06/10/24
--- OUTSIDE RECORDS SUMMARY | 2024-08-09 14:06 | XMS_ITS | Clinical Summary ---
Author Organization [facility] Address [address] [place] [address] Care Team Providers Care Labelling Machine Operator Name Role Phone Sadie Randolph MD Unavailable Zachary Hurley MD Unavailable Stephanie Cole MD Primary Care Provider [phone] Osvaldo Feldman MD Unavailable [phone] Aminah Cheung OD Unavailable [phone] Flori Sotelo Unavailable Kostas Lr MD Unavailable [phone] Jay Marc MD Unavailable Allergies Active Allergy Reactions Criticality Noted Date Comments [place] Other (See comments) Low severe shakes Other Hives Medium 11/18/2017 Powdered gloves Medications calcium carb and citrate-vitD3 600 mg-12.5 mcg (500 unit) tablet extended release Take by mouth Active blood-glucose meter miscIndications: Type 2 diabetes mellitus with hyperglycemia, without long-term current use of insulin (HCC) Use to check blood glucose once daily. 1 each 024 Active albuterol HFA (Ventolin HFA) 90 mcg/actuation inhalerIndicatio ns:Chronic Obstructive Pulmonary Disease Inhale 2 puffs every 4 (four) hours as needed for wheezing or shortness of breath 024 2024 Active budesonide-glyco pyr-formoterol (Breztri Aerosphere) 160-9-4.8 mcg/actuation inhaler Inhale 2 puffs 2 (two) times a day Active lancets (OneTouch Delica Plus Lancet) 30 gauge miscIndications: Type 2 diabetes mellitus with hyperglycemia, without long-term current use of insulin (HCC) USE 1 TO CHECK GLUCOSE ONCE DAILY 100 each Active QUEtiapine (SEROquel) 300 mg tablet Take 2 tablets (600 mg total) by mouth nightly Serial dose increases starting 11/27/2023. Active cyclobenzaprine (FLEXERIL) 10 mg tablet Take 1 tablet (10 mg total) by mouth 3 (three) times a day as needed (Fibromyalgia) Active LORazepam (ATIVAN) 1 mg tablet Take 1 tablet (1 mg total) by mouth 3 (three) times a day as needed for anxiety Active blood glucose diagnostic (glucose blood) stripIndications :Type 2 diabetes mellitus with hyperglycemia, without long-term current use of insulin ([facility]) Use to test blood glucose once daily. 100 each 1 025 2025 Active losartan (COZAAR) 50 mg tabletIndication s:HTN (hypertension), benign Take 1 tablet (50 mg total) by mouth 2 (two) times a day 180 tablet Active ergocalciferol (VITAMIN D) 50,000 unit capsuleIndicatio ns:Vitamin D deficiency Take 1 capsule (50,000 Units total) by mouth once a week 12 capsule 1 025 Active famciclovir (FAMVIR) 250 mg tabletIndication s:Recurrent herpes simplex Take 1 tablet by mouth twice daily 180 tablet 1 025 Active HYDROcodone-acet aminophen (NORCO) 5-325 mg per tablet Take 1 tablet by mouth every 4 (four) hours as needed for pain Active brexpiprazole (Rexulti) 2 mg tablet Take 1 tablet (2 mg total) by mouth daily Active desvenlafaxine ER (PRISTIQ) 100 mg 24 hr tablet Take 1 tablet (100 mg total) by mouth daily 025 Active atorvastatin (LIPITOR) 40 mg tabletIndication s:Hyperlipidemia associated with type 2 diabetes mellitus (HCC) Take 1 tablet by mouth once daily 90 tablet 1 025 Active metFORMIN (GLUCOPHAGE) 500 mg tabletIndication s:Type 2 diabetes mellitus with hyperglycemia, without long-term current use of insulin (HCC) TAKE 1 TABLET BY MOUTH TWICE DAILY WITH MEALS 180 tablet 1 025 Active propranoloL (INDERAL) 60 mg tabletIndication s:HTN (hypertension), benign TAKE 1 TABLET TWICE DAILY 180 tablet 025 Active gabapentin (NEURONTIN) 300 mg capsuleIndicatio ns:Chronic midline thoracic back pain Take 2 capsules (600 mg total) by mouth 3 (three) times a day 025 Active polyethylene glycol (MIRALAX) 17 gram packetIndication s:constipation Take 1 packet (17 g total) by mouth daily 025 Active levothyroxine (SYNTHROID) 137 mcg tabletIndication s:Congenital hypothyroidism Take 1 tablet (137 mcg total) by mouth daily 45 tablet 025 Active UNABLE TO FIND Apply 1 each topically 2 (two) times a day Med Name: Aurelio Oil (Hayes butter, peppermint oil, cayenne pepper, cannabis). Active Wegovy 0.25 mg/0.5 mL auto-injectorInd ications:Weight Loss Management for Obese Patient (BMI >= 30),type 2 diabetes mellitus INJECT 0.25 MG UNDER THE SKIN EVERY 7 DAYS 4 mL 5 025 Active metFORMIN (GLUCOPHAGE) 500 mg tabletIndication s:Type 2 diabetes mellitus with hyperglycemia, without long-term current use of insulin (HCC) TAKE 1 TABLET BY MOUTH TWICE DAILY WITH MEALS 180 tablet 1 024 2024 Discontinued propranoloL (INDERAL) 60 mg tabletIndication s:HTN (hypertension), benign Take 1 tablet (60 mg total) by mouth 2 (two) times a day 180 tablet 025 2024 Discontinued levothyroxine (SYNTHROID) 125 mcg tabletIndication s:Congenital hypothyroidism Take 1 tablet by mouth once daily 30 tablet 3 02/24/2024 Discontinued(R eorder) oxyCODONE-acetam inophen (PERCOCET) 5-325 mg per tablet Take 1 tablet by mouth every 4 (four) hours as needed for pain 2024 Discontinued(N o longer taking - Do not display on AVS) gabapentin (NEURONTIN) 300 mg capsule Take 1 capsule (300 mg total) by mouth 3 (three) times a day 2024 Discontinued aspirin 325 mg tablet Take 1 tablet (325 mg total) by mouth daily 2024 Discontinued(N o longer taking - Do not display on AVS) nitroglycerin (NITROSTAT) 0.[address] 1 tablet (0.4 mg total) under the tongue every 5 (five) minutes as needed for chest pain May repeat dose q 5 min, up to 3 doses total 30 tablet 11 2024 Discontinued(N o longer taking - Do not display on AVS) cefdinir (OMNICEF) 300 mg capsuleIndicatio ns:Urinary Tract/Genitourin miguel Infection Take 1 capsule (300 mg total) by mouth 2 (two) times a day for 5 days 10 capsule 2024 tirzepatide (Mounjaro) 2.5 mg/0.5 mL pen injector injectionIndicat ions:Type 2 diabetes mellitus with hyperglycemia, without long-term current use of insulin (HCC) Inject 0.5 mL (2.5 mg total) under the skin every 7 days 2 mL 1 025 2024 Discontinued(N o longer taking - Do not display on AVS) semaglutide (WEGOVY) 0.5 mg/0.5 mL auto-injectorInd ications:Weight Loss Management for Obese Patient (BMI >= 30) Inject 0.25 mg under the skin every 7 days 2 mL 5 025 2024 Discontinued Wegovy 0.5 mg/0.5 mL auto-injectorInd ications:Class 3 severe obesity due to excess calories with serious comorbidity and body mass index (BMI) of 40.0 to 44.9 in adult INJECT 0.25 MG SUBCUTANEOUSLY ONCE A WEEK 4 mL 5 025 2024 Discontinued semaglutide (Wegovy) 0.25 mg/0.5 mL auto-injectorInd ications:Weight Loss Management for Obese Patient (BMI >= 30),type 2 diabetes mellitus Inject 0.25 mg under the skin every 7 days 2 mL 5 025 2024 Discontinued Active Problems Problem Noted Date Diagnosed Date [...] 04/21/2024 Assessment & Plan (04/21/2024 8:29 PM ASPHALT SCREED OPERATOR): See hospital details above, testing and labs [...] growth of some kind. Assessment & Plan (08/03/2024 5:36 PM CDT): Moderate to severe, unremitting since having an arachnoid cyst resected about 4 months ago. She describes a burning character to the pain. She is in pain management at [facility]. Recommend continuing cyclobenzaprine 10 mg 3 times daily as needed, gabapentin 600 mg 2-3 times daily (sometimes skips the middle of the day dose), and hydrocodone 5-325 mg Q 4 hours as needed. A recent MRI did not show any major pathology that explains her pain. Hopefully things will improve as time he lapses after her surgery. Assessment & Plan (04/21/2024 8:30 PM ASPHALT SCREED OPERATOR): Chronic, uncontrolled. See recent hospitalization for thoracic fusion as outlined above. Continue pain medicine and therapy as prescribed by Neurosurgery. Assessment & Plan (03/16/2024 6:36 PM ASPHALT SCREED OPERATOR): New symptom as of about two months ago, unremitting. She had evaluation in her spine surgeon's office and has either an arachnoid cyst or possibly a herniated disc in the midthoracic spine. Surgery is planned. She has already been cleared by Cardiology. Review of the record indicates recent elevation of WBC when she was at the [facility] ER with a bad headache. She eventually left without being seen due to the long wait. She denies running a fever. Other pertinent recent history includes an episode of pneumonia treated by Pulmonary Medicine at [facility]. Exam today is unremarkable. She will have a follow-up CBC before final approval to have her back surgery. Return here early as needed. Postoperative wound infection 05/17/2023 Overview (07/14/2023): After lower back surgery, polymicrobial, treated with wound drainage and wound VAC with resolution as of 07/12/2023. Hypertension associated with type 2 diabetes rosario litus 02/06/2022 Assessment & Plan (08/03/2024 5:38 PM CDT): Chronic, present for 2-3 or more years, recommend continuing propranolol 60 mg twice daily. BP: 138/82 Assessment & Plan (04/21/2024 8:21 PM ASPHALT SCREED OPERATOR): Chronic, at goal. BP stable in office today on current therapy. No acute findings on exam. BMP from 2 weeks ago unremarkable except for protein and liver enzymes. We will repeat today. Continue losartan and propranolol as prescribed. low salt diet. Assessment & Plan (03/07/2024 4:13 PM ASPHALT SCREED OPERATOR): Chronic, present for more than two years, currently controlled on losartan 50 mg twice daily and propranolol 20 mg every 12 hours. She denies chest pain or pressure. She has been cleared by Cardiology to have her thoracic spine surgery. Assessment & Plan (01/25/2024 1:45 PM ASPHALT SCREED OPERATOR): Chronic, present for more than two years, [...] 10/18/2022 Assessment & Plan (04/26/2022 4:37 PM ASPHALT SCREED OPERATOR): Blood pressure is in a good range [...] parameters Assessment & Plan (01/21/2019 11:39 AM ASPHALT SCREED OPERATOR): Clinically improved. Cont current meds. Hyperlipidemia associated with type 2 diabetes alfie gaytan 02/06/2022 Assessment & Plan (07/30/2024 5:05 PM CDT): Chronic, present for 2-3 or more years. Recommend continuing atorvastatin 40 mg daily. We ordered labs to be done before her next visit in six months. Assessment & Plan (06/23/2024 3:20 PM CDT): Chronic, present for a number of years, she resumed full dose atorvastatin 40 mg daily after recovery of liver enzymes to normal. We will see her back as scheduled in about a month. Lab Results Component Value Date ALT 45 05/19/2024 AST 33 05/19/2024 ALKPHOS 124 05/19/2024 BILITOT 0.2 05/19/2024 Assessment & Plan (01/25/2024 1:44 PM ASPHALT SCREED OPERATOR): Chronic, present for more than two years, status update needed. We ordered labs to be done at her convenience sometime next week. Follow up in six months. Assessment & Plan (07/12/2023 1:25 PM CDT): She is tolerating generic Lipitor. We will monitor with periodic labs. Assessment & Plan (04/12/2023 3:20 PM ASPHALT SCREED OPERATOR): She takes generic Lipitor, tolerating well. We [...] 10/18/2022 Assessment & Plan (04/26/2022 4:36 PM ASPHALT SCREED OPERATOR): She is on moderate dose generic Lipitor, [...] continued 7. Avoid alcohol sedatives and other PHYSICAL CHEMISTRY PROFESSOR depression that may worsen sleep apnea and disrupt normal sleep architecture CPAP titration read 03/15/2022: Bilevel therapy with inspiratory positive airway pressure of 17 cm and expiratory positive pressure 13 cm was found to be best attempted settings. Assessment & Plan (07/30/2024 5:06 PM CDT): Chronic, present for a number of years, recommend continuing BiPAP and follow up with sleep specialists. Assessment & Plan (10/26/2022 1:56 PM CDT): Continue BiPAP. Assessment & Plan (04/26/2022 4:46 PM ASPHALT SCREED OPERATOR): She is now on BiPAP. The mask [...] 150 mcg daily. 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 She is taking a medication, Cytomel, which has a common side effect of diaphoresis. Encouraged patient to speak to her packaging clerk about possibly discontinuing this medication. Class 3 severe obesity due t o excess calories with serious comorbidity and body mass index (BMI) of 40.0 to 44.9 in adult 06/10/2020 Assessment & Plan (08/03/2024 5:37 PM CDT): Chronic, present for many years, uncontrolled with a recent increase due to inability to stay active because of her back pain. She also has diabetes, and the HGB A1c has increased. We recommended a trial of tirzepatide 2.5 mg subQ Q 7 days, risks of medication discussed. We will adjust the dose as needed depending on response and any side effects. Assessment & Plan (04/21/2024 8:22 PM ASPHALT SCREED OPERATOR): Chronic, uncontrolled. Down 9 lb in the last 6 weeks, BMI at 41.5. Exercise is limited due to chronic pain issues, she does not wish to discuss pharmacological treatment at this time. Encouraged continued heart healthy diet and exercise and portion control. Assessment & Plan (01/25/2024 1:41 PM ASPHALT SCREED OPERATOR): Chronic, present for many years, uncontrolled although there has been a slight decrease in her weight recently. We encouraged continued attention to her diet, and additional weight loss. Assessment & Plan (04/12/2023 3:21 PM ASPHALT SCREED OPERATOR): She put on quite a bit of weight due to inactivity. 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 We encouraged her efforts. Assessment & Plan (11/12/2022 3:16 PM CDT): We encouraged attention to her diet and significant weight loss. She is limited in activity level due to chronic pain. Assessment & Plan (05/11/2022 10:13 AM ASPHALT SCREED OPERATOR): She is on Ozempic for diabetes. This [...] recommended. Assessment & Plan (03/23/2021 2:09 PM ASPHALT SCREED OPERATOR): Weight reduction, daily exercise and dietary modifications recommended when feeling better. Assessment & Plan (03/17/2021 4:13 PM ASPHALT SCREED OPERATOR): Healthy, low carbohydrate lifestyle and exercise for 150min/week recommended Assessment & Plan (01/04/2021 6:01 PM CDT): Weight reduction, daily exercise and dietary modifications recommended. Assessment & Plan (08/06/2020 1:14 PM CDT): HPI: Condition is not at/near goal of BMI <25 A&P: Healthy, low carbohydrate lifestyle and exercise for 150min/week recommended Substitutions: Recommend tracking everything you put in your mouth on an sophie like [employer] or [employer] carries a zero net carb bread [...] in much longer they will become mushy Gilman and/or coconut flour instead of regular flour [...] pork rinds For yogurt, try Two Good turkish yogurt Use Pinterest for recipe ideas. Type in low carb... Assessment & Plan (06/10/2020 3:28 PM CDT): Healthy, low carbohydrate lifestyle and exercise for 150min/week recommended Hyperplastic polyp of sigmoid colon 01/01/2020 Overview (01/01/2020): Colonoscopy 04/23/2017 [facility] everywhere Chronic migraine without aur a without [...] endocrinology. Assessment & Plan (04/11/2021 2:40 PM ASPHALT SCREED OPERATOR): Check 25 OH vit D Adjust dose of Ergocalciferol accordingly Assessment & Plan (04/21/2020 4:14 PM ASPHALT SCREED OPERATOR): Continue Ergocalciferol, 50,000 international units weekly Assessment & Plan (02/05/2019 3:33 PM ASPHALT SCREED OPERATOR): Check 25 OH vit D Adjust dose of Ergocalciferol accordingly Type 2 diabetes mellitus with hyperglycemia 09/2017 Overview (07/12/2023): >>OVERVIEW FOR PREDIABETES WRITTEN ON 07/12/2023 4:26 AM BY STEPHANIE COLE MD Developed paige diabetes, late 2022-early 2023. Assessment & Plan (07/30/2024 5:07 PM CDT): Chronic, present for 1-2 years, previously had glucose intolerance. Recommend continuing metformin 500 mg twice daily and adhering to a diabetic diet. She requested a referral to diabetes education at [facility] which will be arranged. Assessment & Plan (03/07/2024 4:15 PM ASPHALT SCREED OPERATOR): Chronic, present for many years, currently controlled with metformin 500 mg twice daily. The criterion for having surgery was a hemoglobin A1c less than 7.5%, and her recent value was 7.3%. She is working hard on her diet. Assessment & Plan (01/26/2024 3:20 PM ASPHALT SCREED OPERATOR): Chronic, present for about a year (previously [...] WRITTEN ON 01/21/2019 11:40 AM BY ALIYA HUERTAS DO Low carbs diet recommended, weight reduction and daily exercise. Assessment & Plan (07/12/2023 4:27 AM CDT): >>ASSESSMENT AND PLAN FOR PREDIABETES WRITTEN ON 01/01/2020 4:14 PM BY ALIYA HUERTAS DO Low carbs diet recommended. Assessment & Plan (07/12/2023 4:27 AM CDT): >>ASSESSMENT AND PLAN FOR PREDIABETES WRITTEN ON 04/21/2020 4:17 PM BY SADIE RANDOLPH MD Importance of diet and exercise was discussed Will start Rybelsus which also can help with weight loss Assessment & Plan (07/12/2023 4:27 AM CDT): >>ASSESSMENT AND PLAN FOR PREDIABETES WRITTEN ON 01/04/2021 6:03 PM BY ALIYA HUERTAS DO Low carbs diet recommended. Labs ordered, [...] 08/16/2021 Assessment & Plan (04/24/2023 10:07 AM ASPHALT SCREED OPERATOR): She progressed from borderline diabetes to paige [...] covered Assessment & Plan (04/26/2022 4:51 PM ASPHALT SCREED OPERATOR): She does not check blood sugars at home. She is on Ozempic. She sees Dr. Randolph for follow-up of her endocrine conditions. Lab Results Component Value Date HGBA1C 6.7 02/06/2022 Assessment & Plan (02/06/2022 4:44 PM ASPHALT SCREED OPERATOR): Hba1c was Lab Results Component Value Date [...] (chronic obstructive pulmonary disease) Assessment & Plan (07/30/2024 5:04 PM CDT): Chronic, present for 8-9 or more years, recommend continuing albuterol 90 mcg rescue inhaler q.4 hours prn and ylxqqajpvd-fkwwhfflueeize-obrmkvxyqv 160-9-4.8 mcg inhaler twice daily. Assessment & Plan (01/25/2024 1:44 PM ASPHALT SCREED OPERATOR): Chronic, present for about 10 years, currently treated with albuterol metered- dose inhaler and nbhksmfwme-iuryoeijhtelhn-vgaxivbkpv maintenance inhaler. She also has a nebulizer used as needed. She has a pulmonary nurse practitioner at [facility] who sees her periodically. Continue same. Assessment & Plan (07/12/2023 1:24 PM CDT): She uses an inhaler as needed. She denies cough or shortness of breath. Lungs are clear and oxygen saturation is adequate. Continue same. Assessment & Plan (04/12/2023 3:18 PM ASPHALT SCREED OPERATOR): Symptoms are controlled with an albuterol inhaler and Symbicort. She managed to quit smoking which is great. We will see her back in three months. Assessment & Plan (04/26/2022 4:34 PM ASPHALT SCREED OPERATOR): She wheezes occasionally and has an albuterol [...] day. Assessment & Plan (01/25/2024 1:40 PM ASPHALT SCREED OPERATOR): Chronic, present for decades, currently uncontrolled despite taking tramadol as needed. Mostly she relies on acetaminophen or ibuprofen which he gets amfz-jce-jxlgclp. She has follow ups with her back [...] excessive pain, but probably overdid it at [place] in the pool the other day and [...] symptoms Assessment & Plan (04/11/2021 2:40 PM ASPHALT SCREED OPERATOR): Check TFTs Would recommend to increase LT3 to 5 mcg bid Will send rx after today labs Assessment & Plan (01/04/2021 6:01 PM CDT): Asymptomatic. Stable. Continue current prescription medications. Assessment & Plan (04/21/2020 4:16 PM ASPHALT SCREED OPERATOR): Continue Levothyroxine and Liothyronine, combination Importance of f taking the medication on an empty stomach, was explained again to the patient Assessment & Plan (12/19/2019 11:48 PM CDT): Continue levothyroxine Assessment & Plan (11/20/2019 2:29 AM CDT): Continue levothyroxine and Cytomel Assessment & Plan (02/05/2019 3:32 PM ASPHALT SCREED OPERATOR): Will check TSH and free T4 and [...] lacking. Assessment & Plan (01/25/2024 1:46 PM ASPHALT SCREED OPERATOR): Chronic, present for many years, currently reasonably well controlled on medications prescribed by her psychiatrist, Dr. Hurley, including quetiapine 600 mg at bedtime, lorazepam 1 mg 3 times daily as needed which she takes rarely, and desvenlafaxine 100 mg daily. Continue same and keep followups with psychiatry. Assessment & Plan (04/12/2023 3:21 PM ASPHALT SCREED OPERATOR): Her mood seems to be pretty stable [...] Barton. Assessment & Plan (05/11/2022 10:13 AM ASPHALT SCREED OPERATOR): She sees Dr. Hurley and is on [...] feasible. Assessment & Plan (04/21/2024 8:30 PM ASPHALT SCREED OPERATOR): Spent 5 minutes in discussion of tobacco cessation today and advised of health benefits. Assessment & Plan (07/14/2023 12:55 PM CDT): Unstable, worse. She quit smoking for her back surgery but unfortunately has resumed. We encouraged smoking cessation. Assessment & Plan (04/12/2023 3:21 PM ASPHALT SCREED OPERATOR): She quit smoking one month ago. I congratulated her on the accomplishment. She does have cravings, but is managing to abstain. Assessment & Plan (10/26/2022 1:58 PM CDT): Insurance would not approve recommended back surgery until she quit smoking and lost some weight. She is working on this but it is hard. Assessment & Plan (04/26/2022 4:50 PM ASPHALT SCREED OPERATOR): She is still smoking cigarettes and has no plans to quit. We nevertheless did encourage cessation. Assessment & Plan (07/07/2021 2:08 PM CDT): Advised patient to quit smoking. Assessment & Plan (01/04/2021 6:01 PM CDT): Advised patient to quit smoking. Pt declined stating that smoking is the only thing keeping her sane. Assessment & Plan (01/26/2020 8:13 PM ASPHALT SCREED OPERATOR): Advised patient to quit smoking. Assessment & [...] smoking. Assessment & Plan (01/21/2019 11:40 AM ASPHALT SCREED OPERATOR): Advised patient to quit. She states she's not ready to quit. Acute non intractable tension-type headache Resolved Problems Problem Noted Date Diagnosed Date Resolved Date Depression with anxiety 04/30/202404/19 Morbid obesity with BMI of 40.0-44.9, adult 03/27/2024 04/21/2024 Community acquired pneumonia of right upper lobe of lung 01/18/2024 03/07/2024 Assessment & Plan (01/26/2024 2:52 PM ASPHALT SCREED OPERATOR): New problem, started about a week ago, slightly improved. She had a low-dose CT scan of her chest at [place] with her pulmonary nurse practitioner. A right [...] dis classd elswhr 05/17/2023 03/07/2024 Overview (03/07/2024): [place], [place], details lacking. Furuncle of pubic region [...] ordered. Assessment & Plan (05/09/2022 10:46 AM ASPHALT SCREED OPERATOR): Acute problem, present times about 4 days [...] ear. Assessment & Plan (04/26/2022 4:50 PM ASPHALT SCREED OPERATOR): For the past year or so, she is noted an itchy feeling at the external auditory meatus bilaterally and in the surrounding external ear. Exam shows a probable seborrheic dermatitis. We will have her start some ketoconazole cream. If not responding, she will let us know. Influenza A 03/23/2021 04/25/2022 Overview (04/25/2022): Saw Aliya Huertas D.O. Assessment & Plan (03/23/2021 2:08 PM ASPHALT SCREED OPERATOR): Reiterated treatment plan. Encouraged patient to increase [...] Plan (08/17/2020 5:56 PM CDT): Prescriptions sent. Byysk-tk-hcqnpo exercises encouraged once pain level decreases. Return [...] in your mouth on an sophie like Kun[employer]ango or [employer] carries a zero net carb bread [...] in much longer they will become mushy Gilman and/or coconut flour instead of regular flour [...] pork rinds For yogurt, try Two Good turkish yogurt Use Pinterest for recipe ideas. Type in low carb... Assessment & Plan (01/26/2020 8:12 PM ASPHALT SCREED OPERATOR): Weight reduction, daily exercise and dietary modifications [...] psychiatry Assessment & Plan (01/26/2020 8:10 PM ASPHALT SCREED OPERATOR): Clinically improved, managed by psychiatrist. Assessment & [...] recommended. Assessment & Plan (01/21/2019 11:41 AM ASPHALT SCREED OPERATOR): Worsening. Encouraged patient to decrease weight, increase [...] list. Assessment & Plan (01/26/2020 8:11 PM ASPHALT SCREED OPERATOR): Stable. Cont. Current meds. Managed by psychiatry. Assessment & Plan (12/19/2019 11:51 PM CDT): Continue home medications. Patient is on Xanax 2 mg t.i.d. p.r.n. which is not a new medication or dose for her. Assessment & Plan (11/20/2019 2:28 AM CDT): Continue p.r.n. Xanax Hypoxia 01/21/2019 Pneumonia due to infectious organism 01/21/2019 Encounters Date Type Department Care Team Description 08/06/2024 Results [facility] [address] [place], [place] [phone] Stephanie Cole MD DIABETES EYE EXAM 08/04/2024 Telephone [facility] [address] [place] [address] Stephanie Cole MD 07/31/2024 Telephone [facility] 1 [facility] [address] [place] [phone] Stephanie Cole MD Wegovy 07/30/2024 3:30 PM CDT Office Visit [facility] [address] [facility] [address] [place] [phone] Stephanie Cole MD Type 2 diabetes mellitus with hyperglycemia, without long-term current use of insulin (HCC) (Primary Dx); Hyperlipidemia associated with type 2 diabetes mellitus (HCC); Hypertension associated with type 2 diabetes mellitus (HCC); Chronic midline thoracic back pain; Class 3 severe obesity due to excess calories with serious comorbidity and body mass index (BMI) of 40.0 to 44.9 in adult; Chronic obstructive pulmonary disease, unspecified COPD type ([facility]); Moderate obstructive sleep apnea; Congenital hypothyroidism 07/23/2024 Results Follow-Up [facility] [address] [place] [phone] Stephanie Cole MD Urinalysis reflex to microscopic, TSH, T4, free, Additional followed-up results: 4 07/22/2024 10:10 AM CDT Lab [address] [phone] Hematuria, unspecified type; Adult hypothyroidism; Type 2 diabetes mellitus with hyperglycemia, without long-term current use of insulin (HCC) 07/18/2024 Telephone [facility] [address] [place] [phone] Stephanie Cole MD Food is very salty, pt unsure why 07/18/2024 Results Follow-Up [facility] [address] [place] [phone] Stephanie Cole MD Urinalysis reflex to microscopic and culture Urine, clean voided 07/15/2024 Telephone [facility] [address] [place] [address] Stephanie Cole MD 07/15/2024 Telephone [facility] [address] [facility] [address] [place] [address] Stephanie Cole MD 07/15/2024 Results Follow-Up [facility] [address] [facility] [address] [place] [address] Stephanie Cole MD SCAN - LABS 07/14/2024 Orders Only [facility] Health Information Management [address] [place] [phone] Stephanie Cole MD 07/14/2024 Telephone [facility] 1 [facility] [address] [place] [address] Stephanie Cole MD 06/27/2024 10:00 AM CDT - 06/27/2024 11:05 AM CDT Surgery [facility] Cardiac Catheterization 1 [place] [address] Ran García MD LEFT HEART CATHETERIZATION WITH CORONARY ANGIOGRAPHY AND WITH OR WITHOUT LEFT VENTRICULOGRAM [id number] 06/27/2024 8:52 AM CDT - 06/27/2024 3:09 PM CDT Hospital Encounter [facility] Cardiac Catheterization 1 [place] [address] Ran García MD Other chest pain Discharge Disposition: Discharge to home or self care 06/26/2024 11:40 AM CDT - 06/26/2024 12:49 PM CDT Emergency [facility] Emergency Department 1 [place] [address] Discharge Disposition: Left without being seen 06/26/2024 Telephone [facility] 1 [facility] [address] [place] [address] Stephanie Cole MD 06/26/2024 Telephone [place] [facility] at [facility] 2 [facility] [address] [place] [address] Stanley Reaves MA 06/24/2024 9:55 AM CDT Lab [address] [phone] Adult hypothyroidism; Vitamin D deficiency; Type 2 diabetes mellitus with hyperglycemia, without long-term current use of insulin (HCC); Elevated liver enzymes; Medication monitoring encounter 06/24/2024 9:50 AM CDT Lab [address] [phone] Other chest pain 06/24/2024 9:00 AM CDT Office Visit [place] at [address] [phone] Bonita Cotto NP Hyperlipidemia associated with type 2 diabetes mellitus (HCC) (Primary Dx); Chest pain, unspecified type; Other chest pain; Hypertension associated with type 2 diabetes mellitus (HCC) 06/24/2024 Results Follow-Up [facility] [address] [place] [address] [place] [phone] Stephanie Cole MD T4, free, TSH, Vitamin D 25 hydroxy, Additional followed-up results: 7 06/24/2024 Orders Only [place] at [address] [phone] Ran García MD Other chest pain (Primary Dx) 06/23/2024 2:30 PM CDT Office [facility] [address] [place] [address] [place] [phone] Stephanie Cole MD Chronic midline low back pain without sciatica (Primary Dx); Chest pain, unspecified type; Other chest pain; Hyperlipidemia associated with type 2 diabetes mellitus (HCC); Tobacco use disorder 06/23/2024 Telephone [facility] 1 [facility] [address] [place] [phone] Stephanie Cole MD 06/09/2024 Telephone [facility] [address] [place] [address] [place] [phone] Thea Byrd RN 06/04/2024 Telephone [facility] [address] [place] [address] Stephanie Cole MD 05/23/2024 Telephone [facility] [address] [place] [address] Stephanie Cole MD 05/20/2024 Telephone [facility] [address] [place] [address] Stephanie Cole MD 05/20/2024 Results [facility] [address] [place] [address] Stephanie Cole MD Hepatic function panel 05/19/2024 2:55 PM ASPHALT SCREED OPERATOR Lab [facility] 1 [place] [address] Elevated liver enzymes 05/19/2024 Telephone [facility] [address] [place] [address] Thea Byrd, CORIE 05/15/2024 1:30 PM ASPHALT SCREED OPERATOR Office Visit [facility] [address] [place] [address] Jenny Tidwell MD Vulvar abscess (Primary Dx); Furuncle of pubic region; Family history of breast cancer; Encounter for screening mammogram for breast cancer 05/13/2024 Telephone [facility] [address] [place] [address] Stephanie Cole MD from Last 3 Months Immunizations Immunization Administration [...] [employer] [employer]. MAMMOGRAPHY 11/28/2022 Bilateral Negative, [facility] UPPER GI AIR CONTRAST W KUB 03/17/2015 Left FL UPPER GI AIR CONTRAST W KUB 03/05/2015 Left LUMBAR SPINE SURGERY 04/20/2023 N/A Revision lumbar laminectomy, middle third facetectomy, bilateral foraminotomy. Revision posterior lumbar fusion. Use of autograft bone graft augmented with Infuse/allograft material for purposes of fusion. Dr. Marc, [facility]. Post-op wound dehiscence and infection managed with antibiotics and drainage/wound vac. ABDOMINAL SURGERY SKIN LESION EXCISION 09/12/2023 SKIN, LEFT CENTRAL FRONTAL SCALP, SHAVE BIOPSY, seborrheic keratosis, Adelina Hoover, TOOL INSPECTOR- THORACIC SPINE SURGERY 03/26/2024 N/A Thoracic laminectomy and excisional biopsy of T5-T8 intradural mass Posterior thoracic fusion with instrumentation Use of autograft bone graft augmented with Infuse / allograft material for purposes of fusion. Jay Marc MD, [facility]. Pathology report: Arachnoid cyst, consistent with CARDIAC CATHETERIZATION 06/27/2024 N/A Procedure: LEFT HEART CATHETERIZATION WITH CORONARY ANGIOGRAPHY AND WITH OR WITHOUT LEFT VENTRICULOGRAM [id number]; Surgeon: Ran García MD; Location: [facility] CARDIAC CLAY PROCESSING FACTORY WORKER; Service: Cardiovascular; Laterality: N/A; Medical devices from this surgery are in the Medical Devices section. DIABETES EYE EXAM 07/31/2024 Bilateral No diabetic retinopathy, Aminah Brady's, OD, [employer]. Developing cataracts noted. Medical History Medical History Date Comments Headache COPD (chronic obstructive pu lmonary disease) ([facility]) 2012 Hypothyroidism Abnormal Pap smear of cervix 2003 HPV (+) pap Depression 2010 Smoking Hypertension Anxiety 20 years Class 3 severe obesity due t o excess calories with serious comorbidity and body mass index (BMI) of 40.0 to 44.9 in adult 06/10/2020 Cigarette nicotine dependenc e without complication 03/19/1977 Major depressive disorder, r ecurrent episode, moderate with anxious distress ([facility]) 03/05/2017 Exact dates and details lack ing. Anxiety 08/11/2009 Severe episode of recurrent major depressive disorder, without psychotic features ([facility]) 08/30/2017 Managed by psychiatry Mononucleosis 1977 Date approximate , details lacking. History of chickenpox 1968 Dates and details lacking Essential hypertension 01/21/2019 [...] diagnosis. Acute cystitis 03/13/2023 See note from ph one triage, Rx antibiotics. Displacement of lumbar inter vertebral disc without myelopathy 01/04/2021 Details lacking. Dysuria 05/09/2022 Saw SATISH Crawford, empiric Rx ordered. Facet arthropathy, lumbosacral 02/24/2015 D etails lacking. Herniation of intervertebral disc of lumbar spine 05/08/2014 Herniated disk, cervical and lumbar? Details lacking. Neck and back surgeries. Lumbosacral spondylolysis 05/06/2015 Overvi ew: with sciatica, L5S1/ TLIF performed by Dr Marc on 05/05/2015, OR EBL 300 ml >>OVERVIEW FOR SACROILIITIS ([facility]) WRITTEN ON 04/12/2023 6:06 AM BY STEPHANIE COLE MD Review of imaging dating to 2020 and subsequently does not support this diagnosis. Prediabetes 10/23/2017 Developed paige diabetes, late 2022-early 2023. 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 Spinal stenosis in cervical region 11/29/2016 Chronic. History of surgery. Yeast vaginitis 11/29/2022 Post antibiotics . Diabetes mellitus (HCC) 2023 Sleep apnea 2020 Morbid obesity (CMS/HCC) (HCC) 06/10/2020 Proteus (mirabilis) (morgani i) causing dis classd elswhr 05/17/2023 [facility] [place], details lacking. Community acquired pneumonia of right [...] Marycruz Heart attack Mother's Brother Ted in hos pital waiting for heart cath Breast cancer Mother's [...] Diabetes Sister 2 Cecily Hyperlipidemia Sister 2 Cecily Hypertension Sister 2 Cecily Obesity Sister 2 [...] 1 47.4 Started: 03/19/1977 Smokeless Tobacco: Never Tobacco Cessation:Ready [...] file 01/30/2020 How often do you attend mandaeism or jain serv ices? Never 01/30/2020 Do you belong to any clubs o r organizations such as mandaeism groups, unions, fraternal or athletic groups, or [...] on file Legal Sex Female 1:21 PM ASPHALT SCREED OPERATOR Gender Identity Female 05/05/2022 8:09 AM ASPHALT SCREED OPERATOR Sexual Orientation Straight 11/04/2018 1: 20 [...] PTL Janis A1 A5 Name Clin 07/05 86 Term 3.827 kg (8 lb 7 oz) F CS-Un spec Spinal Living Last Filed Vital Signs Vital Sign Reading Time Taken Comments Blood Pressure 138/82 07/30/2024 3:32 PM CDT Pulse 89 07/30/2024 3:32 PM CDT Temperature 36.5 C (97.7 F) 07/30/2024 3:32 PM CDT Respiratory Rate 16 07/30/2024 3:32 PM CDT Oxygen Saturation 96% 07/30/2024 3:32 PM CDT Inhaled Oxygen Concentration - - Weight 130.5 kg (287 lb 12.8 oz) 07/30/2024 3:32 PM CDT Height 175.3 cm (5' 9.02 ) 07/30/2024 3:32 PM CD T Body Mass Index 42.48 07/30/2024 3:32 PM CDT Plan of Treatment Health Maintenance Due Date Last Done Comments DTaP/Tdap/Td Vaccine (2 - Td or Tdap) 10/14/2023 10/13/2013, 10/13/2013, 03/19/2013, Additional history exists Covid-19 Vaccine (2023-2 5 season) 2023 12/27/2021, 06/06/2020, 05/14/2020 Breast Cancer Screening-Mammogram 11/29/2023 11/28/2022, 09/07/2021, 09/07/2021, Additional history exists Lung Cancer Screening 01/18/2025 01/19/2024 , 11/28/2022, 09/07/2021, Additional history exists Hemoglobin A1C 01/22/2025 07/22/2024, 040 10/2024, 04/21/2024, Additional history exists Depression Screening 01/24/2025 01/25/2024, 10/26/2022, 10/26/2022, Additional history exists Foot Exam 01/24/2025 01/25/2024, 042 07/2023, 04/26/2022 Regular Well Visit/Exam 18-64 01/24/2025, 10/26/2022, 10/14/2021, Additional history exists Albumin Creatinine Ratio, Urine 06/24/2025 06/24/2024, 04/21/2024, 10/18/2022 Lipid Panel 06/24/2025 06/24/2024, 020 05/2024, 10/18/2022, Additional history exists eGFR 07/22/2025 07/22/2024, 1 , 06/24/2024, Additional history exists Dilated Eye Exam 07/31/2025 07/31/2024, 01/18/2023 Colon Cancer Screening-Colonoscopy 04/23/2027 04/23/2017 Colon Cancer [...] history exists Medical Devices Implanted Type Area Education Sales Consultant Device Identifier Shelf Expiration Date Model / Serial / Lot [employer] Angio-Seal Vip 6fr Closere Device [id number] - [id number] Implanted:Qty: 1 on 06/27/2024 by Ran García MD at [facility] [employer] 11/11/2024 [id number] / / [id number] Procedures Procedure Name Priority Date/Time Associated Diagnosis Comments HM DIABETES EYE EXAM Routine 07/31/2024 4:13 PM CDT EGFR Routine 07/22/2024 10:15 AM CDT Type 2 diabetes mellitus with hyperglycemia, without long-term current use of insulin (HCC) HEMOGLOBIN A1C Routine 07/22/2024 10:15 AM CDT Type 2 diabetes mellitus with hyperglycemia, without long-term current use of insulin (HCC) COMPREHENSIVE METABOLIC PANEL Routine 07/22/2024 10:15 AM CDT Type 2 diabetes mellitus with hyperglycemia, without long-term current use of insulin (HCC) T3, FREE Routine 07/22/2024 10:15 AM CDT Adult hypothyroidism T4, FREE Routine 07/22/2024 10:15 AM CDT Adult hypothyroidism TSH Routine 07/22/2024 10:15 AM CDT Adult hypothyroidism URINALYSIS AND REFLEX TO MICROSCOPIC Routine 07/22/2024 10:15 AM CDT Hematuria, unspecified type SCAN - LABS 07/14/2024 3:26 PM CDT URINALYSIS AND REFLEX TO MICROSCOPIC AND CULTURE Routine 07/14/2024 Gross hematuria POCT GLUCOSE DEVICE Routine 06/27/2024 1 :43 [...] type HEPATIC FUNCTION PANEL Routine 2:56 PM ASPHALT SCREED OPERATOR Elevated liver enzymes LUNG CANCER SCREENING Routine 01/19/2024 MAMMOGRAPHY Routine 11/28/2022 HEPATITIS C ANTIBODY Routine 01/21/2019 11:48 AM ASPHALT SCREED OPERATOR Encounter for hepatitis C screening test for low risk patient COLONOSCOPY Routine 04/23/2017 from Last 3 Months or Most Recently Relevant to Health Maintenance Results * DIABETES EYE EXAM (07/31/2024 4:13 PM CDT) SCRIBED DIABETIC DILATED EYE EXAM Normal Historical Provider HEALTH MAINTENANCE Final Result * eGFR (07/22/2024 10:15 AM CDT) eGFR 83 >=60 mL/min/1. 73 m2 Comment: Interpretive Data [...] interpretive data was last reviewed 2021. Blood 07/22/2024 10:1 5 AM CDT 07/22/2024 10:29 AM CDT Stephanie Cole MD LAB BLOOD ORDERABLES Final Re sult Performing Organization Address City/[facility]/ZIP Co de Phone Number [facility] ([place]) 1 [facility] [employer] [place] [address] * Urinalysis reflex to microscopic (07/22/2024 10:15 AM CDT) Color, ur Yellow Yellow Clarity, ur Clear Clear [facility] ([place]) Specific gravity, ur 1.022 1.003 - 1.030 [facility] ([place]) pH, urine 5.5 [facility] ([place]) Comment: Interpretive Data U rine pH is affected by diet, medications, systemic acid-base disturbances, and renal tubular function. pH may affect urinary stone formation. For example, urine pH below 6.0 may help reduce the tendency for calcium phosphate stones and pH greater than 6.0 may reduce the tendency for uric acid stone formation. Source: [facility] Chloe + [place] Current Interpretive Data was last revised on 2017 Protein, ur ql Negative Negative [facility] ([place]) Glucose, ur ql Negative Negative [facility] ([place]) Ketones, ur Negative Negative [facility] ([place]) Bilirubin, ur Negative Negative [facility] ([place]) Blood, ur Negative Negative [facility] ([place]) Urobilinogen, ur <2.0 <2.0 mg/dL [facility] ([place]) Nitrite, ur Negative Negative [facility] ([place]) Leukocyte esterase, ur Negative Negative [facility] ([place]) UA reflex comment Reflex conditions for microscopic UA not met. [facility] ([place]) Urine 07/22/2024 10:1 5 AM CDT 07/22/2024 10:31 AM CDT Stephanie Cole MD LAB URINE ORDERABLES Final Re sult Performing Organization Address City/[facility]/ZIP Co de Phone Number [facility] ([place]) 1 [facility] Department [place] [address] * (ABNORMAL) T3, free (07/22/2024 10:15 AM CDT) Free T3 1.3(L) 2.0 - 4.4 pg/mL Comment:Testing performed by : [facility], [address] [place] [address], [place]., [address] Blood 07/22/2024 10:1 5 AM CDT 07/22/2024 2:22 PM CDT us Stephanie Cole MD LAB BLOOD ORDERABLES Final Re sult [facility] ([place]) [address] [place] [address] * (ABNORMAL) TSH (07/22/2024 10:15 AM CDT) Thyroid Stimulating Hormone 7.55(H) 0.30 - 4.20 mcIUnit/mL Blood 07/22/2024 10:1 5 AM CDT 07/22/2024 10:29 AM CDT us Stephanie Cole MD LAB BLOOD ORDERABLES Final Re sult Performing Organization Address [facility] Co de Phone Number [facility] ([place]) [address] [place] [address] Chloe + [place] [address] * T4, free (07/22/2024 10:15 AM CDT) Free T4 1.14 0.90 - 1.70 ng/dL Blood 07/22/2024 10:1 5 AM CDT 07/22/2024 10:29 AM CDT us Stephanie Cole MD LAB BLOOD ORDERABLES Final Re sult Performing Organization Address City/[facility]/ZIP Co de Phone Number J[facility]AR S[facility] ([place]) 1 [facility] [address] [place] [address] * (ABNORMAL) Hemoglobin A1c (07/22/2024 10:15 AM CDT) Pathologist [facility] Hgb A1C 7.9(H) 4.0 - 5.6 % Estimated Average Glucose 180 mg/dL [facility] ([place]) Comment: The ADA recommends reporting an estimated Average Glucose (eAG) with all Hemoglobin A1c results using the equation derived from a study of 507 normal and diabetic adults. Minority populations were underrepresented and children were not included. (Diabetes Care 31:8167-8181, 2008). The eAG is not equivalent to a fasting glucose. Blood 07/22/2024 10:1 5 AM CDT 07/22/2024 10:29 AM CDT us Stephanie Cole MD LAB BLOOD ORDERABLES Final Re sult [facility] ([place]) 1 [facility] [place] [address] * (ABNORMAL) Comprehensive metabolic panel (07/22/2024 10:15 AM CDT) [facility] Sodium 137 135 - 145 mmol/L Potassium, pl 4.4 3.3 - 4.9 mmol/L [facility] ([place]) Chloride 99 97 - 110 mmol/L [facility] ([place]) CO2 26 22 - 32 mmol/L [facility] ([place]) Anion gap 12 2 - 15 mmol/L [facility] ([place]) BUN 12 6 - 25 mg/dL [facility] ([place]) Creatinine 0.79 0.60 - 1.10 mg/dL [facility] ([place]) Glucose 147 70 - 199 mg/dL [facility] ([place]) Comment: Interpretive Data Fasting glucose >/= [...] interpretive data was last revised 2022. Calcium 9.2 8.5 - 10.3 mg/dL [facility] ([place]) Bilirubin, total 0.3 0.1 - 1.2 mg/dL [facility] ([place]) Protein, pl 7.1 6.5 - 8.5 g/dL [facility] ([place]) Albumin 3.7 3.5 - 5.0 g/dL [facility] ([place]) Alk phos 125 40 - 130 Units/L [facility] ([place]) ALT 102(H) 7 - 45 Units/L [facility] ([place]) AST 77(H) 10 - 45 Units/L [facility] ([place]) Blood 07/22/2024 10:1 5 AM CDT 07/22/2024 10:29 AM CDT Stephanie Cole MD LAB BLOOD ORDERABLES Final Re sult Performing Organization Address [facility] Co de Phone Number [facility] ([place]) 1 [facility] Department of Laboratories [place] [id number] * SCAN - LABS (07/14/2024 3:26 PM CDT) Stephanie Cole MD Final Result * Urinalysis reflex to microscopic and culture Urine, clean voided (07/14/2024) Urine, clean voided Stephanie Cole MD LAB MICROBIOLOGY - GENERAL OR DERABLES Edited Result - Final Performing Organization Address City/[facility]/ZIP Co de Phone Number EXTERNAL LAB * POCT glucose (06/27/2024 1:43 PM CDT) Glucose, POC 115 70 - 199 mg/dL Blood 06/27/2024 1:43 PM CDT 06/27/2024 1:43 PM CDT Ran García MD LAB POCT ORDERABLES - DEVICE Fi nal Result Performing Organization Address City/[facility]/ZIP Co de Phone Number [facility] [place]) 1 [facility] [place] [address] * LEFT HEART CATHETERIZATION WITH CORONARY ANGIOGRAPHY AND WITH AND WITHOUT LEFT VENTRICULOGRAM (06/27/2024 12:10 PM CDT) Anatomical Region Laterality Modality X-Ray Angiograph y 06/27/2024 Narrative 06/30/2024 7:19 AM CDT [employer] Job ID: [id number] [employer] Document ID: [id number] Dictated date/time: [id number] CARDIAC CATHETERIZATION REPORT A 64-year-old with recurrent episodes of chest pain. She also had severe back pain. Presentation was concerning for angina. She was referred for catheterization. INDICATION FOR PROCEDURE Chest pain. PROCEDURES PERFORMED Left heart catheterization, selective coronary angiography, left ventriculography, vascular access closure. After obtaining informed consent, the patient was brought to the cardiac labelling machine operator suite. She was prepped and draped in the usual fashion. Conscious sedation was administered by the labelling machine operator staff under my supervision. A total of 8 mg of Versed, 300 mcg of fentanyl and 50 mg of Benadryl were given in divided doses. See procedure log for details. Total sedation time was 22 minutes. A 6-Romanian sheath was inserted in the right femoral [...] Ran García MD Job ID/Internal Job ID: [id number] Ran García MD CV CARDIAC CATH PROCEDURES Aziza l Result * POCT glucose (06/27/2024 9:13 AM CDT) Glucose, POC 197 70 - 199 mg/dL Blood 06/27/2024 9:13 AM CDT 06/27/2024 9:13 AM CDT us Ran García MD LAB POCT ORDERABLES - DEVICE Fi nal Result Performing Organization Address City/State/[facility] Co de Phone Number [facility] ([facility] 1 [facility] [place] [address] * XR Chest 1 Vw Portable (if [...] Manfred Santos M.D. RB: ROLANDO Report ID: [id number] Reading Location: [id number] Procedure Note Manfred Santos MD - 06/26/2024 [...] Manfred Santos M.D. RB: ROLANDO Report ID: [id number] Reading Location: [id number] Kaitlin Muñoz MD IMG XR PROCEDURES F [...] BLOOD ORDERABLE S Final Result [facility] ([place]) 1 [facility] [employer] [place] [address] [place] [address] * eGFR (06/26/2024 11:53 AM CDT) eGFR [...] BLOOD ORDERABLE S Final Result [facility] ([place]) 1 [facility] Department of [place] [address] [place] [address] * (ABNORMAL) Differential, auto (06/26/2024 11:53 AM CDT) Neutrophil abs 6.16 1.50 - 6.50 K/cumm Imm gran abs 0.05 0.00 - 0.10 K/cumm [facility] ([place]) Lymphocyte abs 2.88 0.80 - 3.30 K/cumm [...] Result [facility] ([place]) 1 [facility] [place] [address] * (ABNORMAL) CBC with auto differential (06/26/2024 11:53 AM CDT) Pathologist [facility] WBC 10.47(H) 3.80 - 9.90 K/cumm Hgb [...] BLOOD ORDERABLE S Final Result JAMAR SING[facility] ([place]) 1 [facility] [place] [address] * (ABNORMAL) Comprehensive metabolic panel (06/26/2024 11:53 AM CDT) [facility] Sodium 134(L) 135 - 145 mmol/L Potassium, [...] Result [facility] ([place]) 1 [facility] [place] [address] * ECG 12 lead (06/26/2024 11:47 AM CDT) 06/26/2024 11:4 7 AM CDT Narrative [facility] - 06/26/2024 12:19 PM CDT Vent Rate: 80 bpm RR Interval: 748 msec [place] Interval: 156 msec QRS Duration: 94 msec QT Interval: 343 msec QTC Interval: 379 msec P-R-T [place]: 56 - 60 - 49 degrees IMPRESSION: SINUS RHYTHM NORMAL ECG NO CHANGE FROM PREVIOUS TRACING NOTED Electronically Signed By: Ran García MD Kaitlin Muñoz MD ECG ORDERABLES Fin al Result [facility] * eGFR (06/24/2024 10:04 AM CDT) eGFR [...] LAB BLOOD ORDERABLES Final Re sult JAMAR [facility] [place]) 1 [facility] [place] [address] * eGFR (06/24/2024 10:04 AM CDT) eGFR [...] LAB BLOOD ORDERABLES Final Resu lt JAMAR [facility] ([place]) 1 [facility] [place] [address] * (ABNORMAL) Differential, auto (06/24/2024 10:04 AM [...] 2017. Basophil pct 0.8 % [facility] ([place]) Comment: Interpretive Data Percent cell count reference ranges are not reported, since discordance with absolute values may lead to misinterpretation of CBC data. Current Interpretive Data was last revised on 2017. Blood 06/24/2024 10:0 4 AM CDT 06/24/2024 10:52 AM CDT us Ran García MD LAB BLOOD ORDERABLES Final Resu lt JAMAR [facility]ING[facility] ([place]) 1 [facility] [place] [address] * (ABNORMAL) CBC with auto differential (06/24/2024 [...] RDW SD 46.0 35.7 - 48.1 fL [facility] ([place]) NRBC abs 0.00 0.00 - 0.01 K/cumm [facility] ([place]) Blood 06/24/2024 10:0 4 AM CDT 06/24/2024 10:52 AM CDT us Ran García MD LAB BLOOD ORDERABLES Final Resu lt [facility] ([place]) 1 [facility] [place] [address] * Albumin Creatinine Ratio, Urine (06/24/2024 10:04 AM CDT) Albumin Ur <12.0 mg/L Comment: Interpretive Data No reference range established. Current interpretive data was last revised 2018. Testing performed by: [facility], [address] [place] [address], [place]., [address] Creatinine Ur 61.5 mg/dL [facility] ([place]) Comment: Interpretive Data No reference range established. Current interpretive data was last revised 2018. Testing performed by: [facility], [address] [place] [address], [place] [address] Albumin Creatinine Ratio, Ur <20 1 - 29 mg/g [facility] ([place]) Comment:Testing performed by : [facility], [address] [place] [address], [place]., [address] Urine 06/24/2024 10:0 4 AM CDT 06/24/2024 2:22 PM CDT Stephanie Cole MD LAB URINE ORDERABLES Final Re sult Performing Organization Address [facility] de Phone Number JAMAR [facility] ([place]) 1 [facility] [address] [place] [address] * Vitamin D 25 hydroxy (06/24/2024 10:04 AM CDT) Vitamin D 25-OH 36 30 - 80 ng/mL Blood 06/24/2024 10:0 4 AM CDT 06/24/2024 10:52 AM CDT Stephanie Cole MD LAB BLOOD ORDERABLES Final Re sult Performing Organization Address [facility] de Phone Number JAMAR S[facility] ([place]) 1 [facility] [address] [place] [address] * Protime-INR (06/24/2024 10:04 AM CDT) PT 11.8 9.7 - 13.0 sec JAMAR SING[facility] ([place]) INR 1.09 0.90 - 1.20 [facility] ([place]) Comment: Interpretive data Oral anticoagulant therapeutic ranges: Venous thromboembolism prophylaxis or treatment: 2.0-3.0 CARDIOLOGY Standard range: 2.0-3.0 High-intensity range: 2.5-3.5 Refer to indication-specific guidelines for appropriate target ranges for prosthetic heart valve replacement. Current interpretive data was last revised on 2019. Blood 06/24/2024 10:0 4 AM CDT 06/24/2024 10:52 AM CDT Ran García MD LAB BLOOD ORDERABLES Final Resu lt Performing Organization Address [facility]/ZIP Co de Phone Number JAMAR [facility] ([place]) 1 [facility] [address] [place] [address] * T3, free (06/24/2024 10:04 AM CDT) Free T3 3.7 2.0 - 4.4 pg/mL Comment:Testing performed by : [facility], [address] [place] [address], [place]., [address] Blood 06/24/2024 10:0 4 AM CDT 06/24/2024 2:22 PM CDT Stephanie Cole MD LAB BLOOD ORDERABLES Final Re sult Performing Organization Address [facility]/ZIP Co de Phone Number JAMAR SING[facility] ([place]) 1 [facility] [address] [place] [address] * TSH (06/24/2024 10:04 AM CDT) Thyroid Stimulating Hormone 0.62 0.30 - 4.20 mcIUnit/mL Blood 06/24/2024 10:0 4 AM CDT 06/24/2024 10:52 AM CDT Stephanie Cole MD LAB BLOOD ORDERABLES Final Re sult Performing Organization Address [facility]/ZIP Co de Phone Number JAMAR SING[facility] ([place]) 1 [facility] [address] [place] [address] * (ABNORMAL) T4, free (06/24/2024 10:04 AM CDT) Free T4 0.88(L) 0.90 - 1.70 ng/dL Blood 06/24/2024 10:0 4 AM CDT 06/24/2024 10:52 AM CDT us Stephanie Cole MD LAB BLOOD ORDERABLES Final Re sult J[facility]AR [facility] ([place]) 1 [facility] [address] [place] [id number] * (ABNORMAL) Hemoglobin A1c (06/24/2024 10:04 AM CDT) Hgb A1C 6.9(H) 4.0 - 5.6 % Estimated Average Glucose 151 mg/dL [facility] ([place]) Comment: The ADA recommends reporting an estimated Average Glucose (eAG) with all Hemoglobin A1c results using the equation derived from a study of 507 normal and diabetic adults. Minority populations were underrepresented and children were not included. (Diabetes Care 31:9727-2773, 2008). The eAG is not equivalent to a fasting glucose. Blood 06/24/2024 10:0 4 AM CDT 06/24/2024 10:52 AM CDT Stephanie Cole MD LAB BLOOD ORDERABLES Final Re sult Performing Organization Address City/[facility] Co de Phone Number JAMAR SINGH ([place]) 1 [facility] [address] [place] [address] * Bilirubin, direct (06/24/2024 10:04 AM CDT) Bilirubin, direct <0.1 0.1 - 0.3 mg/dL Blood 06/24/2024 10:0 4 AM CDT 06/24/2024 10:52 AM CDT Stephanie Cole MD LAB BLOOD ORDERABLES Final Re sult JAMAR [facility]ING[facility] ([place]) 1 [facility] [address] [place] [address] * (ABNORMAL) Lipid panel (06/24/2024 10:04 AM [...] revised on 2023. Non-HDL Cholesterol 86 mg/dL [facility] ([place]) Comment: Interpretive Data Ages < [...] last revised on 2017. Chol/HDL ratio 3 [facility] ([place]) Blood 06/24/2024 10:0 4 AM CDT 06/24/2024 10:52 AM CDT us Stephanie Cole MD LAB BLOOD ORDERABLES Final Re sult [facility] ([place]) 1 [facility] Department [place] [address] * (ABNORMAL) Comprehensive metabolic panel (06/24/2024 10:04 [...] MD LAB BLOOD ORDERABLES Final Re sult [facility] ([place]) 1 [facility] [place] [address] * (ABNORMAL) Basic metabolic panel (06/24/2024 10:04 AM CDT) Sodium 135 135 - 145 mmol/L Potassium, pl 4.5 3.3 - 4.9 mmol/L [facility] ([place]) Chloride 98 97 - 110 mmol/L [facility] ([place]) CO2 24 22 - 32 mmol/L [facility] ([place]) Anion gap 13 2 - 15 mmol/L [facility] ([place]) BUN 12 6 - 25 mg/dL [facility] ([place]) Creatinine 0.65 0.60 - 1.10 mg/dL [facility] ([place]) Glucose 264(H) 70 - 199 mg/dL [facility] ([place]) Comment: Interpretive Data Fasting glucose >/= [...] 2022. Calcium 9.4 8.5 - 10.3 mg/dL [facility] ([place]) Blood 06/24/2024 10:0 4 AM CDT 06/24/2024 10:52 AM CDT us Ran García MD LAB BLOOD ORDERABLES Final Resu lt [facility] [place] 1 [facility] [place] [address] * ECG 12-LEAD (06/23/2024 2:23 PM CDT) [...] * Hepatic function panel (05/19/2024 2:56 PM ASPHALT SCREED OPERATOR) Bilirubin, total 0.2 0.1 - 1.2 mg/dL [...] Hemolyzed S pecimen Blood 05/19/2024 2:56 PM ASPHALT SCREED OPERATOR 05/19/2024 3:53 PM ASPHALT SCREED OPERATOR us Stephanie Cole MD LAB BLOOD ORDERABLES Final Re sult [facility] ([place]) 1 [facility] [place] [address] * LUNG CANCER SCREENING (01/19/2024) Pathologist [facility] Scribed Lung Cancer Screening Normal Impressions Stephanie Cole MD - 01/19/2024 Low-dose CT chest 01/19/2024 at [facility] negative for suspicious nodules. Narrative Stephanie Cole MD - 01/19/2024 See scanned report. us Flori [facility] Fin al Result * MAMMOGRAPHY (11/28/2022) Mammography Normal Impressions Stephanie Cole MD - 11/28/2022 [facility] 1, [facility]. Narrative Stephanie Cole MD - 11/28/2022 See scanned report. us Betzaida Subramanian NP HEALTH MAINTENANCE Final Result * Hepatitis C antibody (01/21/2019 11:48 AM ASPHALT SCREED OPERATOR) Hep C Ab Negative Negative [facility] ([place]) Comment:Testing performed by : [facility], [address] [place] [address], [place]., [address] Blood specimen (specimen) 01/21/2019 11:48 AM ASPHALT SCREED OPERATOR 01/21/2019 7:22 PM ASPHALT SCREED OPERATOR Aliya Huertas DO LAB MICROBIOLOGY - GENERAL ORDERABLES Final Result JAMAR SINGH ([place]) 1 [facility] [place] [address] * COLONOSCOPY (04/23/2017) Colonoscopy Abnormal us Historical Provider HEALTH MAINTENANCE Final Result from Last 3 Months or Most Recently Relevant to Health Maintenance Insurance [employer] SENIOR SUPPLEMENT MEDICARE MEDICARE [facility] MEDICARE BLUE CROSS MEDICARE SUPPLEMENT Advance Directives For more information, please contact: [phone] * Full Code (Latest Code Status on File) Date Activated Date Inactivated Comments 06/27/2024 1:07 PM 06/27/2024 7:17 PM * Full Code Date Activated Date Inactivated Comments 12/19/2019 5:44 PM 12/21/2019 2:39 PM * Full Code Date Activated Date Inactivated Comments 11/19/2019 8:23 PM 11/21/2019 2:56 PM * Full Code Date Activated Date Inactivated Comments 11/21/2018 5:09 PM 11/24/2018 6:00 PM Care Teams Labelling Machine Operator Relationship Specialty Start Date End Date Stephanie Cole MD [address] [place] [address] PCP - General Internal Medicine 10/14/21 [place] [address] [facility] [address] [place] [address] Consulting Physician Endocrinology Diabetes & Metabolism 01/21/19 [place] [address] [address] [facility] [address] [place] [address] Referring Physician Psychiatry 01/21/19 [place] [address] [facility] [address] [place] [address] Consulting Physician Pain Management 09/25/22 Aminah Cheung OD [address] [place] [address] Consulting Physician Optometry 01/18/23 Flori Sotelo PA [address] [place], [place] [id number] Physician Property Analyst Pulmonary Disease 01/26/24 Kostas Lr MD [address] [place], [place] [id number] Consulting Physician Cardiology 02/22/24 Jay Marc MD [address] [place] [address] Surgeon Orthopedic Surgery 04/21/24
--- OUTSIDE RECORDS SUMMARY | 2024-08-09 14:06 | XMS_ITS | Referral Summary ---
Author Organization [facility] Address [address] [place] [address] Care Team Providers Care Checker Name Role Phone Sadie Randolph MD Unavailable Zachary Hurley MD Unavailable Stephanie Cole MD Primary Care Provider [phone] Osvaldo Feldman MD Unavailable Aminah Cheung OD Unavailable Flori Sotelo Unavailable [phone] Kostas Lr MD Unavailable Jay Marc MD Unavailable Encounters Date Type Department Care Team Description 08/06/2024 Results Follow-Up [facility] [address] [place] [address] Stephanie Cole MD DIABETES EYE EXAM 08/04/2024 [facility]phone [facility] [address] [place] [address] Stephanie Cole MD 07/31/2024 Telephone [facility] [address] [place] [address] Stephanie Cole MD [facility] 07/30/2024 3:30 PM CDT Office Visit [facility] 1 [facility] [address] [place], [place] [phone] Stephanie Cole MD Type 2 diabetes mellitus [...] Chronic obstructive pulmonary disease, unspecified COPD type ([facility]); Moderate obstructive sleep apnea; Congenital hypothyroidism 07/23/2024 [facility] [address] [place], [place] [phone] Stephanie Cole MD Urinalysis reflex to microscopic, TSH, T4, free, Additional followed-up results: 4 07/22/2024 10:10 AM CDT Lab [address] [address] Hematuria, unspecified type; Adult hypothyroidism; Type 2 diabetes mellitus with hyperglycemia, without long-term current use of insulin ([facility]) 07/18/2024 Telephone [facility] [address] [facility] [address] [place] [phone] Stephanie Cole MD Food is very salty, pt unsure why 07/18/2024 Results Follow-Up [facility] 1 [facility] [address] [place] [phone] Stephanie Cole MD Urinalysis reflex to microscopic and culture Urine, clean voided 07/15/2024 [facility]phone [facility] 1 [facility] [address] [place] [phone] Stephanie Cole MD 07/15/2024 Telephone [facility] 1 [facility] [address] [place] [phone] Stephanie Cole MD 07/15/2024 Results [facility] [address] [facility] [address] [place] [address] Stephanie Cole MD SCAN - LABS 07/14/2024 Orders Only [facility] Health Information Management [address] [place] [phone] Stephanie Cole MD 07/14/2024 Telephone [facility] [address] [facility] [address] [place] [address] Stephanie Cole MD 06/27/2024 10:00 AM CDT - 06/27/2024 11:05 AM CDT Surgery [facility] Cardiac Catheterization [address] [place] [address] Ran García MD LEFT HEART CATHETERIZATION WITH CORONARY ANGIOGRAPHY AND WITH OR WITHOUT LEFT VENTRICULOGRAM [id number] 06/27/2024 8:52 AM CDT - 06/27/2024 3:09 PM CDT Hospital Encounter [facility] Cardiac Catheterization [address] [place] [address] Ran García MD Other chest pain Discharge Disposition: Discharge to home or self care 06/26/2024 Telephone [facility] 1 [facility] [address] [place] [address] Stephanie Cole MD 06/26/2024 Telephone [place] [facility] [address] [facility] [address] [place] [address] Stanley Reaves MA 06/26/2024 11:40 AM CDT - 06/26/2024 12:49 PM CDT Emergency [facility] Emergency Department [address] [place] [address] Discharge Disposition: Left without being seen 06/24/2024 Results Follow-Up [facility] 1 [facility] [address] [place] [address] Stephanie Cole MD T4, free, TSH, Vitamin D 25 hydroxy, Additional followed-up results: 7 06/24/2024 9:55 AM CDT Lab [address] [phone] Adult hypothyroidism; Vitamin D deficiency; Type 2 diabetes mellitus with hyperglycemia, without long-term current use of insulin (HCC); Elevated liver enzymes; Medication monitoring encounter 06/24/2024 9:50 AM CDT Lab [address] [address] Other chest pain 06/24/2024 Orders Only [place] [facility] at [address] [phone] Ran García MD Other chest pain (Primary Dx) 06/24/2024 9:00 AM CDT Office Visit [place] [facility] at [address] [phone] Bonita Cotto NP Hyperlipidemia associated with type 2 diabetes mellitus (HCC) (Primary Dx); Chest pain, unspecified type; Other chest pain; Hypertension associated with type 2 diabetes mellitus (HCC) 06/23/2024 Telephone [facility] [address] [place] [phone] Stephanie Cole MD 06/23/2024 2:30 PM CDT Office Visit [facility] [address] [facility] [address] [place] [phone] Stephanie Cole MD Chronic midline low back pain without sciatica (Primary Dx); Chest pain, unspecified type; Other chest pain; Hyperlipidemia associated with type 2 diabetes mellitus (HCC); Tobacco use disorder 06/09/2024 Telephone [facility] [address] [place] [phone] Thea Byrd RN 06/04/2024 Telephone [facility] [address] [place] [address] Stephanie Cole MD 05/23/2024 Telephone [facility] [address] [place] [address] Stephanie Cole MD 05/20/2024 Telephone [facility] [address] [facility] [address] [place] [address] Stephanie Cole MD 05/20/2024 Results Follow-Up [facility] [address] [facility] [address] [place] [address] Stephanie Cole MD Hepatic function panel 05/19/2024 2:55 PM ALUMINA PLANT SUPERVISOR Lab [address] [phone] Elevated liver enzymes 05/19/2024 Telephone [facility] [address] [facility] [address] [place] [address] Thea Byrd RN 05/15/2024 1:30 PM [employer] SUPER[employer]OR [facility] [address] [facility] [address] [place] [address] Jenny Tidwell MD Vulvar abscess (Primary Dx); Furuncle of pubic region; Family history of breast cancer; Encounter for screening mammogram for breast cancer 05/13/2024 [facility]phone [facility] [address] [facility] [address] [place] [address] Stephanie Cole MD from Last 3 Months Allergies Active Allergy Reactions Criticality Noted Date Comments [place] Other (See comments) Low severe shakes Other [...] hyperglycemia, without long-term current use of insulin ([facility]) USE 1 TO CHECK GLUCOSE ONCE [...] hyperglycemia, without long-term current use of insulin ([facility]) Use to test blood glucose once daily. 100 each 1 025 2025 Active losartan (COZAAR) 50 mg tabletIndication s:HTN (hypertension), benign Take 1 tablet (50 mg total) by mouth 2 (two) times a day 180 tablet 025 Active ergocalciferol (VITAMIN D) 50,000 unit capsuleIndicatio [...] tablet (100 mg total) by mouth daily Active atorvastatin (LIPITOR) 40 mg tabletIndication s:Hyperlipidemia [...] TAKE 1 TABLET TWICE DAILY 180 tablet Active gabapentin (NEURONTIN) 300 mg capsuleIndicatio ns:Chronic midline thoracic back pain Take 2 capsules (600 mg total) by mouth 3 (three) times a day Active polyethylene glycol (MIRALAX) 17 gram packetIndication s:constipation Take 1 packet (17 g total) by mouth daily 025 Active levothyroxine (SYNTHROID) 137 mcg tabletIndication s:Congenital hypothyroidism Take 1 tablet (137 mcg total) by mouth daily 45 tablet Active UNABLE TO FIND Apply 1 each topically 2 (two) times a day Med Name: Aurelio Simpson Oil (Hayes butter, peppermint oil, cayenne pepper, [...] by mouth once daily 30 tablet 3 025 2024 Discontinued(R eorder) oxyCODONE-acetam inophen (PERCOCET) 5-325 mg per tablet Take 1 tablet by mouth every 4 (four) hours as needed for pain 025 2024 Discontinued(N o longer taking - Do not display on AVS) gabapentin (NEURONTIN) 300 mg capsule Take 1 capsule (300 mg total) by mouth 3 (three) times a day 025 2024 Discontinued aspirin 325 mg tablet Take 1 tablet (325 mg total) by mouth daily 025 2024 Discontinued(N o longer taking - Do not display on AVS) nitroglycerin (NITROSTAT) 0.[address] 1 tablet (0.4 mg total) under the tongue every 5 (five) minutes as needed for chest pain May repeat dose q 5 min, up to 3 doses total 30 tablet 11 025 2024 Discontinued(N o longer taking - Do not display on AVS) cefdinir (OMNICEF) 300 mg capsuleIndicatio ns:Urinary Tract/Genitourin miguel Infection Take 1 capsule (300 mg total) by mouth 2 (two) times a day for 5 days 10 capsule 025 2024 tirzepatide (Mounjaro) 2.5 mg/0.5 mL pen [...] 04/21/2024 Assessment & Plan (04/21/2024 8:29 PM ALUMINA PLANT SUPERVISOR): See hospital details above, testing and labs [...] pain. She is in pain management at [facility]. Recommend continuing cyclobenzaprine 10 mg 3 times daily as needed, gabapentin 600 mg 2-3 times daily (sometimes skips the middle of the day dose), and hydrocodone 5-325 mg Q 4 hours as needed. A recent MRI did not show any major pathology that explains her pain. Hopefully things will improve as time he lapses after her surgery. Assessment & Plan (04/21/2024 8:30 PM ALUM[employer] PL[employer] SUPERVISOR): Chronic, uncontrolled. See recent hospitalization for thoracic fusion as outlined above. Continue pain medicine and therapy as prescribed by Neurosurgery. Assessment & Plan (03/16/2024 6:36 PM ALUMINA PLANT SUPERVISOR): New symptom as of about two months ago, unremitting. She had evaluation in her spine surgeon's office and has either an arachnoid cyst or possibly a herniated disc in the midthoracic spine. Surgery is planned. She has already been cleared by Cardiology. Review of the record indicates recent elevation of WBC when she was at the [facility] ER with a bad headache. She eventually left without being seen due to the long wait. She denies running a fever. Other pertinent recent history includes an episode of pneumonia treated by Pulmonary Medicine at [facility]. Exam today is unremarkable. She will have a follow-up CBC before final approval to have her back surgery. Return here early as needed. Postoperative wound infection 05/17/2023 Overview (07/14/2023): After lower back surgery, polymicrobial, treated with wound drainage and wound VAC with resolution as of 07/12/2023. Hypertension associated with type 2 diabetes rosaroi litus 02/06/2022 Assessment & Plan (08/03/2024 5:38 PM CDT): Chronic, present for 2-3 or more years, recommend continuing propranolol 60 mg twice daily. BP: 138/82 Assessment & Plan (04/21/2024 8:21 PM [employer] SUPERVISOR): Chronic, at goal. BP stable in office today on current therapy. No acute findings on exam. BMP from 2 weeks ago unremarkable except for protein and liver enzymes. We will repeat today. Continue losartan and propranolol as prescribed. low salt diet. Assessment & Plan (03/07/2024 4:13 PM ALUMINA PL[employer] SUPERVISOR): Chronic, present for more than two years, currently controlled on losartan 50 mg twice daily and propranolol 20 mg every 12 hours. She denies chest pain or pressure. She has been cleared by Cardiology to have her thoracic spine surgery. Assessment & Plan (01/25/2024 1:45 PM [employer]UM[employer] PLANT SUPERVISOR): Chronic, present for more than two years, [...] 10/18/2022 Assessment & Plan (04/26/2022 4:37 PM ALUM[employer] PLANT SUPERVISOR): Blood pressure is in a good range [...] parameters Assessment & Plan (01/21/2019 11:39 AM ALUM[employer] PLANT SUPERVISOR): Clinically improved. Cont current meds. Hyperlipidemia associated [...] 05/19/2024 Assessment & Plan (01/25/2024 1:44 PM ALUM[employer] PL[employer] SUPERVISOR): Chronic, present for more than two years, status update needed. We ordered labs to be done at her convenience sometime next week. Follow up in six months. Assessment & Plan (07/12/2023 1:25 PM CDT): She is tolerating generic Lipitor. We will monitor with periodic labs. Assessment & Plan (04/12/2023 3:20 PM ALUMINA PLANT SUPERVISOR): She takes generic Lipitor, tolerating well. We [...] 10/18/2022 Assessment & Plan (04/26/2022 4:36 PM ALUMINA PLANT SUPERVISOR): She is on moderate dose generic Lipitor, [...] continued 7. Avoid alcohol sedatives and other [employer] depression that may worsen sleep apnea and [...] BiPAP. Assessment & Plan (04/26/2022 4:46 PM ALUM[employer] PLANT SUPERVISOR): She is now on BiPAP. The mask [...] 150 mcg daily. Patient does have a clinical sciences professor, advised patient to follow-up with clinical sciences professor. She is taking a medication, Cytomel, which has a common side effect of diaphoresis. Encouraged patient to speak to her clinical sciences professor about possibly discontinuing this medication. Class 3 [...] effects. Assessment & Plan (04/21/2024 8:22 PM ALUMINA PLANT SUPERVISOR): Chronic, uncontrolled. Down 9 lb in the last 6 weeks, BMI at 41.5. Exercise is limited due to chronic pain issues, she does not wish to discuss pharmacological treatment at this time. Encouraged continued heart healthy diet and exercise and portion control. Assessment & Plan (01/25/2024 1:41 PM ALUMINA PLANT SUPERVISOR): Chronic, present for many years, uncontrolled although there has been a slight decrease in her weight recently. We encouraged continued attention to her diet, and additional weight loss. Assessment & Plan (04/12/2023 3:21 PM ALUMINA PLANT SUPERVISOR): She put on quite a bit of weight due to inactivity. 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 We encouraged her efforts. Assessment & Plan (11/12/2022 3:16 PM CDT): We encouraged attention to her diet and significant weight loss. She is limited in activity level due to chronic pain. Assessment & Plan (05/11/2022 10:13 AM ALUMINA PLANT SUPERVISOR): She is on Ozempic for diabetes. This [...] recommended. Assessment & Plan (03/23/2021 2:09 PM ALUMINA PLANT SUPERVISOR): Weight reduction, daily exercise and dietary modifications recommended when feeling better. Assessment & Plan (03/17/2021 4:13 PM ALUMINA PLANT SUPERVISOR): Healthy, low carbohydrate lifestyle and exercise for 150min/week recommended Assessment & Plan (01/04/2021 6:01 PM CDT): Weight reduction, daily exercise and dietary modifications recommended. Assessment & Plan (08/06/2020 1:14 PM CDT): HPI: Condition is not at/near goal of BMI <25 A&P: Healthy, low carbohydrate lifestyle and exercise for 150min/week recommended Substitutions: Recommend tracking everything you put in your mouth on an sophie like TransferGo or [employer] carries a zero net carb bread [...] in much longer they will become mushy [place] and/or coconut flour instead of regular flour [...] pork rinds For yogurt, try Two Good vatican citizen yogurt Use [employer] for recipe ideas. Type in low carb... Assessment & Plan (06/10/2020 3:28 PM CDT): Healthy, low carbohydrate lifestyle and exercise for 150min/week recommended Hyperplastic polyp of sigmoid colon 01/01/2020 Overview (01/01/2020): Colonoscopy 04/23/2017 [facility] everywhere Chronic migraine without aur [...] endocrinology. Assessment & Plan (04/11/2021 2:40 PM ALUMINA PLANT SUPERVISOR): Check 25 OH vit D Adjust dose of Ergocalciferol accordingly Assessment & Plan (04/21/2020 4:14 PM ALUMINA PLANT SUPERVISOR): Continue Ergocalciferol, 50,000 international units weekly Assessment & Plan (02/05/2019 3:33 PM ALUMINA PLANT SUPERVISOR): Check 25 OH vit D Adjust dose [...] requested a referral to diabetes education at [facility] which will be arranged. Assessment & Plan (03/07/2024 4:15 PM ALUMINA PLANT SUPERVISOR): Chronic, present for many years, currently controlled with metformin 500 mg twice daily. The criterion for having surgery was a hemoglobin A1c less than 7.5%, and her recent value was 7.3%. She is working hard on her diet. Assessment & Plan (01/26/2024 3:20 PM ALUMINA PLANT SUPERVISOR): Chronic, present for about a year (previously [...] ON 01/21/2019 11:40 AM BY ALIYA HUERTAS, Low carbs diet recommended, weight reduction and [...] SADIE RANDOLPH MD Diet and exercise Retry Micky [...] 08/16/2021 Assessment & Plan (04/24/2023 10:07 AM ALUMINA PLANT SUPERVISOR): She progressed from borderline diabetes to paige [...] covered Assessment & Plan (04/26/2022 4:51 PM ALUMINA PLANT SUPERVISOR): She does not check blood sugars at home. She is on Ozempic. She sees Dr. Randolph for follow-up of her endocrine conditions. Lab Results Component Value Date HGBA1C 6.7 02/06/2022 Assessment & Plan (02/06/2022 4:44 PM ALUMINA PLANT SUPERVISOR): Hba1c was Lab Results Component Value Date [...] mcg rescue inhaler q.4 hours prn and ckuxauklex-ioexchctdoiyoe-muxvrjzbun 160-9-4.8 mcg inhaler twice daily. Assessment & Plan (01/25/2024 1:44 PM ALUMINA PLANT SUPERVISOR): Chronic, present for about 10 years, currently treated with albuterol metered- dose inhaler and kuzwmfxcjk-dqyojivkzrlwjx-xanywrgwta maintenance inhaler. She also has a nebulizer used as needed. She has a pulmonary nurse practitioner at [facility] who sees her periodically. Continue same. Assessment & Plan (07/12/2023 1:24 PM CDT): She uses an inhaler as needed. She denies cough or shortness of breath. Lungs are clear and oxygen saturation is adequate. Continue same. Assessment & Plan (04/12/2023 3:18 PM ALUMINA PLANT SUPERVISOR): Symptoms are controlled with an albuterol inhaler and Symbicort. She managed to quit smoking which is great. We will see her back in three months. Assessment & Plan (04/26/2022 4:34 PM ALUMINA PLANT SUPERVISOR): She wheezes occasionally and has an albuterol [...] day. Assessment & Plan (01/25/2024 1:40 PM ALUMINA PLANT SUPERVISOR): Chronic, present for decades, currently uncontrolled despite taking tramadol as needed. Mostly she relies on acetaminophen or ibuprofen which he gets dgcf-apt-ogigkqx. She has follow ups with her back [...] excessive pain, but probably overdid it at [employer] in the pool the other day and [...] symptoms Assessment & Plan (04/11/2021 2:40 PM ALUMINA PLANT SUPERVISOR): Check TFTs Would recommend to increase LT3 to 5 mcg bid Will send rx after today labs Assessment & Plan (01/04/2021 6:01 PM CDT): Asymptomatic. Stable. Continue current prescription medications. Assessment & Plan (04/21/2020 4:16 PM ALUMINA PLANT SUPERVISOR): Continue Levothyroxine and Liothyronine, combination Importance of f taking the medication on an empty stomach, was explained again to the patient Assessment & Plan (12/19/2019 11:48 PM CDT): Continue levothyroxine Assessment & Plan (11/20/2019 2:29 AM CDT): Continue levothyroxine and Cytomel Assessment & Plan (02/05/2019 3:32 PM ALUMINA PLANT SUPERVISOR): Will check TSH and free T4 and [...] lacking. Assessment & Plan (01/25/2024 1:46 PM ALUMINA PLANT SUPERVISOR): Chronic, present for many years, currently reasonably well controlled on medications prescribed by her psychiatrist, Dr. Hurley, including quetiapine 600 mg at bedtime, lorazepam 1 mg 3 times daily as needed which she takes rarely, and desvenlafaxine 100 mg daily. Continue same and keep followups with psychiatry. Assessment & Plan (04/12/2023 3:21 PM ALUMINA PLANT SUPERVISOR): Her mood seems to be pretty stable [...] Barton. Assessment & Plan (05/11/2022 10:13 AM ALUMINA PLANT SUPERVISOR): She sees Dr. Hurley and is on [...] feasible. Assessment & Plan (04/21/2024 8:30 PM ALUMINA PLANT SUPERVISOR): Spent 5 minutes in discussion of tobacco cessation today and advised of health benefits. Assessment & Plan (07/14/2023 12:55 PM CDT): Unstable, worse. She quit smoking for her back surgery but unfortunately has resumed. We encouraged smoking cessation. Assessment & Plan (04/12/2023 3:21 PM ALUMINA PLANT SUPERVISOR): She quit smoking one month ago. I congratulated her on the accomplishment. She does have cravings, but is managing to abstain. Assessment & Plan (10/26/2022 1:58 PM CDT): Insurance would not approve recommended back surgery until she quit smoking and lost some weight. She is working on this but it is hard. Assessment & Plan (04/26/2022 4:50 PM ALUMINA PLANT SUPERVISOR): She is still smoking cigarettes and has no plans to quit. We nevertheless did encourage cessation. Assessment & Plan (07/07/2021 2:08 PM CDT): Advised patient to quit smoking. Assessment & Plan (01/04/2021 6:01 PM CDT): Advised patient to quit smoking. Pt declined stating that smoking is the only thing keeping her sane. Assessment & Plan (01/26/2020 8:13 PM ALUMINA PLANT SUPERVISOR): Advised patient to quit smoking. Assessment & [...] smoking. Assessment & Plan (01/21/2019 11:40 AM ALUMINA PLANT SUPERVISOR): Advised patient to quit. She states she's not ready to quit. Acute non intractable tension-type headache Resolved Problems Problem Noted Date Diagnosed Date Resolved Date Depression with anxiety 04/30/202404/19 Morbid obesity with BMI of 40.0-44.9, adult 03/27/2024 04/21/2024 Community acquired pneumonia of right upper lobe of lung 01/18/2024 03/07/2024 Assessment & Plan (01/26/2024 2:52 PM ALUMINA PLANT SUPERVISOR): New problem, started about a week ago, slightly improved. She had a low-dose CT scan of her chest at [place] with her pulmonary nurse practitioner. A right [...] dis classd elswhr 05/17/2023 03/07/2024 Overview (03/07/2024): Delivery [employer], details lacking. Furuncle of pubic region [...] augmentin dosing. Dysuria 05/09/2022 07/12/2023 Overview (07/12/2023): SATISH Robertson, empiric Rx ordered. Assessment & Plan (05/09/2022 10:46 AM ALUMINA PLANT SUPERVISOR): Acute problem, present times about 4 days [...] ear. Assessment & Plan (04/26/2022 4:50 PM ALUMINA PLANT SUPERVISOR): For the past year or so, she is noted an itchy feeling at the external auditory meatus bilaterally and in the surrounding external ear. Exam shows a probable seborrheic dermatitis. We will have her start some ketoconazole cream. If not responding, she will let us know. Influenza A 03/23/2021 04/25/2022 Overview (04/25/2022): Saw Aliya Huertas D.O. Assessment & Plan (03/23/2021 2:08 PM ALUMINA PLANT SUPERVISOR): Reiterated treatment plan. Encouraged patient to increase [...] Plan (08/17/2020 5:56 PM CDT): Prescriptions sent. Yrmuu-ci-ggncri exercises encouraged once pain level decreases. Return [...] in your mouth on an sophie like TransferGo or [employer] carries a zero net carb bread [...] in much longer they will become mushy [place] and/or coconut flour instead of regular flour [...] pork rinds For yogurt, try Two Good vatican citizen yogurt Use Pinterest for recipe ideas. Type in low carb... Assessment & Plan (01/26/2020 8:12 PM ALUMINA PLANT SUPERVISOR): Weight reduction, daily exercise and dietary modifications [...] psychiatry Assessment & Plan (01/26/2020 8:10 PM ALUMINA PLANT SUPERVISOR): Clinically improved, managed by psychiatrist. Assessment & [...] recommended. Assessment & Plan (01/21/2019 11:41 AM ALUMINA PLANT SUPERVISOR): Worsening. Encouraged patient to decrease weight, increase [...] list. Assessment & Plan (01/26/2020 8:11 PM ALUMINA PLANT SUPERVISOR): Stable. Cont. Current meds. Managed by psychiatry. [...] file 01/30/2020 How often do you attend bahai or yarsani serv ices? Never 01/30/2020 Do you belong to any clubs o r organizations such as bahai groups, unions, fraternal or athletic groups, or [...] on file Legal Sex Female 1:21 PM [employer] Gender Identity Female 05/05/2022 8:09 AM [employer] Sexual Orientation Straight 11/04/2018 1: 20 [...] 07/30/2024 3:32 PM CDT Plan of Treatment Not on file Medical Devices Implanted Type Area Referral Agent Device Identifier Shelf Expiration Date Model / Serial / Lot Yappn Angio-Seal Vip 6fr Closere Device [id number] - [id number] Implanted:Qty: 1 on 06/27/2024 by Ran García MD at [facility] Yappn 11/11/2024 [id number] / / [id number] Procedures Procedure Name Priority Date/Time Associated Diagnosis [...] type HEPATIC FUNCTION PANEL Routine 2:56 PM [employer] Elevated liver enzymes LUNG CANCER SCREENING Routine 01/19/2024 MAMMOGRAPHY Routine 11/28/2022 HEPATITIS C ANTIBODY Routine 01/21/2019 11:48 AM [employer] Encounter for hepatitis C screening test for low risk patient COLONOSCOPY Routine 04/23/2017 from Last 3 Months or Most Recently Relevant to Health Maintenance Results * DIABETES EYE EXAM (07/31/2024 4:13 PM CDT) SCRIBED DIABETIC DILATED EYE EXAM Normal us Historical Provider HEALTH MAINTENANCE Final Result * [...] LAB BLOOD ORDERABLES Final Re sult JAMAR [facility] (MAURICE) [address] [facility] Department of Laboratories [place] [address] * Urinalysis reflex to microscopic (07/22/2024 10:15 [...] tendency for uric acid stone formation. Source: [facility] [employer] Current Interpretive Data was last revised on [...] ORDERABLES Final Re sult Performing Organization Address [facility] de Phone Number JAMAR SINGH (MAURICE) 1 [facility] [place] [address] * (ABNORMAL) T3, free (07/22/2024 10:15 AM CDT) Free T3 1.3(L) 2.0 - 4.4 pg/mL Comment:Testing performed by : [facility], [address] [place] [address], [address] Blood 07/22/2024 10:1 5 AM CDT 07/22/2024 2:22 PM CDT Stephanie Cole MD LAB BLOOD ORDERABLES Final Re sult Performing Organization Address [facility] de Phone Number JAMAR SINGH (MAURICE) 1 [facility] [place] [address] * (ABNORMAL) TSH (07/22/2024 10:15 AM CDT) Thyroid Stimulating Hormone 7.55(H) 0.30 - 4.20 mcIUnit/mL Blood 07/22/2024 10:1 5 AM CDT 07/22/2024 10:29 AM CDT Stephanie Cole MD LAB BLOOD ORDERABLES Final Re sult Performing Organization Address [facility] Co de Phone Number JAMAR SINGH (HIRAM) 1 [facility] [place] [address] * T4, free (07/22/2024 10:15 AM CDT) Pathologist [facility] Free T4 1.14 0.90 - 1.70 ng/dL Blood 07/22/2024 10:1 5 AM CDT 07/22/2024 10:29 AM CDT Stephanie Cole MD LAB BLOOD ORDERABLES Final Re sult Performing Organization Address City/[facility] Co de Phone Number JAMAR SINGH (MAURICE) 1 [place] [address] * (ABNORMAL) Hemoglobin A1c (07/22/2024 10:15 AM CDT) [facility] Hgb A1C 7.9(H) 4.0 - 5.6 % Estimated Average Glucose 180 mg/dL JAMAR SINGH (HIRAM) Comment: The ADA recommends reporting an estimated Average Glucose (eAG) with all Hemoglobin A1c results using the equation derived from a study of 507 normal and diabetic adults. Minority populations were underrepresented and children were not included. (Diabetes Care 31:7464-6321, 2008). The eAG is not equivalent to a fasting glucose. Blood 07/22/2024 10:1 5 AM CDT 07/22/2024 10:29 AM CDT Stephanie Cole MD LAB BLOOD ORDERABLES Final Re sult Performing Organization Address City/[facility]/ZIP Co de Phone Number JAMAR SINGH (HIRAM) 1 [facility] [place] [address] * (ABNORMAL) Comprehensive metabolic panel (07/22/2024 10:15 AM CDT) [facility] Sodium 137 135 - 145 mmol/L Potassium, pl 4.4 3.3 - 4.9 mmol/L JAMAR [facility] (HIRAM) Chloride 99 97 - 110 mmol/L [facility] CO2 26 22 - 32 mmol/L [facility] ([place]) Anion gap 12 2 - 15 mmol/L [facility] ([place]) BUN 12 6 - 25 mg/dL [facility] ([place]) Creatinine 0.79 0.60 - 1.10 mg/dL [facility] ([place]) Glucose 147 70 - 199 mg/dL [facility] ([place]) [...] 2022. Calcium 9.2 8.5 - 10.3 mg/dL [facility] ([place]) Bilirubin, total 0.3 0.1 - 1.2 mg/dL [facility] ([place]) Protein, pl 7.1 6.5 - 8.5 g/dL [facility] ([place]) Albumin 3.7 3.5 - 5.0 g/dL [facility] ([place]) Alk phos 125 40 - 130 Units/L [facility] ([place]) ALT 102(H) 7 - 45 Units/L [facility] ([place]) AST 77(H) 10 - 45 Units/L [facility] ([place]) Blood 07/22/2024 10:1 5 AM CDT 07/22/2024 10:29 AM CDT us Stephanie Cole MD LAB BLOOD ORDERABLES Final Re sult JAMAR SINGH (HIRAM) [address] [facility] [place] [address] * SCAN - LABS (07/14/2024 3:26 PM CDT) Stephanie Cole MD Final Result * Urinalysis reflex to microscopic and culture Urine, clean voided (07/14/2024) Urine, clean voided Stephanie Cole MD LAB MICROBIOLOGY - GENERAL OR DERABLES Edited Result - Final Performing Organization Address City/State/[facility] Co de Phone Number EXTERNAL LAB * POCT glucose (06/27/2024 1:43 PM CDT) Glucose, POC 115 70 - 199 mg/dL Blood 06/27/2024 1:43 PM CDT 06/27/2024 1:43 PM CDT Ran García MD LAB POCT ORDERABLES - DEVICE Fi nal Result Performing Organization Address City/[facility] Co de Phone Number JAMAR [facility] [address] [facility] Department of Laboratories [place] [id number] * LEFT HEART CATHETERIZATION WITH CORONARY ANGIOGRAPHY AND WITH AND WITHOUT LEFT VENTRICULOGRAM (06/27/2024 12:10 PM CDT) Anatomical Region Laterality Modality X-Ray Angiograph y 06/27/2024 Narrative 06/30/2024 7:19 AM CDT [employer] Job ID: [id number] [employer] Document ID: [id number] Dictated date/time: [id number] CARDIAC CATHETERIZATION REPORT A 64-year-old with recurrent episodes of chest pain. She also had severe back pain. Presentation was concerning for angina. She was referred for catheterization. INDICATION FOR PROCEDURE Chest pain. PROCEDURES PERFORMED Left heart catheterization, selective coronary angiography, left ventriculography, vascular access closure. After obtaining informed consent, the patient was brought to the cardiac track laborer suite. She was prepped and draped in the usual fashion. Conscious sedation was administered by the track laborer staff under my supervision. A total of 8 mg of Versed, 300 mcg of fentanyl and 50 mg of Benadryl were given in divided doses. See procedure log for details. Total sedation time was 22 minutes. A 6-Polish sheath was inserted in the right femoral [...] Ran García MD Job ID/Internal Job ID: [id number] us Ran García MD CV CARDIAC CATH PROCEDURES Aziza l Result * POCT glucose (06/27/2024 9:13 AM CDT) Glucose, POC 197 70 - 199 mg/dL Blood 06/27/2024 9:13 AM CDT 06/27/2024 9:13 AM CDT us Ran García MD LAB POCT ORDERABLES - DEVICE Fi nal Result JAMAR SINGH (MAURICE) [address] [facility] [place] [address] * XR Chest 1 Vw [...] Manfred Santos M.D. RB: ROLANDO Report ID: [id number] Reading Location: [id number] Procedure Note Manfred Santos MD - 06/26/2024 [...] Manfred Santos M.D. RB: ROLANDO Report ID: [id number] Reading Location: [id number] Kaitlin Muñoz MD IMG XR PROCEDURES F [...] BLOOD ORDERABLE S Final Result [facility] [place] [address] [facility] [place] [address] * eGFR (06/26/2024 11:53 AM [...] MD LAB BLOOD ORDERABLE S Final Result [facility] (MAURICE) [address] [facility] [place] [address] * (ABNORMAL) Differential, auto (06/26/2024 11:53 AM CDT) Neutrophil abs 6.16 1.50 - 6.50 K/cumm Imm gran abs 0.05 0.00 - 0.10 K/cumm [facility] ([place]) Lymphocyte abs 2.88 0.80 - 3.30 K/cumm [facility] ([place]) Monocyte abs 1.03(H) 0.20 - 0.80 K/cumm [facility] ([place]) Eosinophil abs 0.29 0.00 - 0.50 K/cumm [facility] ([place]) Basophil abs 0.06 0.00 - 0.10 K/cumm [facility] ([place]) Neutrophil pct 58.8 % [facility] ([place]) Comment: Interpretive Data Percent cell count reference [...] Lymphocyte pct 27.5 % [facility] ([place]) Comment: Interpretive Data Percent cell count reference [...] MD LAB BLOOD ORDERABLE S Final Result [facility] [address] [facility] [place] [address] * (ABNORMAL) CBC with auto differential (06/26/2024 [...] NRBC abs 0.00 0.00 - 0.01 K/cumm [facility] (HIRAM) Blood Venous blood specimen / Unknown 06/26/2024 11:53 AM CDT 06/26/2024 11:57 AM CDT us Kaitlin Muñoz MD LAB BLOOD ORDERABLE S Final Result [facility] ([place] [address] [facility] [place] [address] * (ABNORMAL) Comprehensive metabolic panel (06/26/2024 11:53 AM CDT) Sodium 134(L) 135 - 145 mmol/L Potassium, pl 4.3 3.3 - 4.9 mmol/L [facility] ([place]) Chloride 98 97 - 110 mmol/L [facility] ([place]) CO2 25 22 - 32 mmol/L [facility] ([place]) Anion gap 11 2 - 15 mmol/L [facility] ([place]) BUN 14 6 - 25 mg/dL [facility] ([place]) Creatinine 0.70 0.60 - 1.10 mg/dL [facility] ([place]) Glucose 201(H) 70 - 199 mg/dL [facility] ([place]) Comment: Interpretive Data Fasting glucose [...] ORDERABLE S Final Result Performing Organization Address City/[facility] Co de Phone Number JAMAR [facility] (HIRAM) [address] [facility] [place] [address] * ECG 12 lead (06/26/2024 11:47 AM CDT) 06/26/2024 11:4 7 AM CDT Narrative [facility] - 06/26/2024 12:19 PM CDT Vent Rate: 80 bpm RR Interval: 748 msec VA Interval: 156 msec QRS Duration: 94 msec QT Interval: 343 msec QTC Interval: 379 msec P-R-T Monument: 56 - 60 - 49 degrees IMPRESSION: SINUS RHYTHM NORMAL ECG NO CHANGE FROM PREVIOUS TRACING NOTED Electronically Signed By: Ran García MD Kaitlin Muñoz MD ECG ORDERABLES Fin al Result Performing Organization Address [facility] de Phone Number [facility] [employer] [facility] * eGFR (06/24/2024 10:04 AM CDT) eGFR [...] BLOOD ORDERABLES Final Re sult JAMAR SINGH [place]ICE [address] [facility] [place] [address] * eGFR (06/24/2024 10:04 AM CDT) eGFR [...] Final Resu lt [facility] (HIRAM) [address] [facility] [place] [address] * (ABNORMAL) Differential, auto (06/24/2024 10:04 AM [...] Final Resu lt J[facility] (HIRAM) [address] [facility] [place] [address] * (ABNORMAL) CBC with auto differential (06/24/2024 [...] ORDERABLES Final Resu lt Performing Organization Address [facility] Co de Phone Number JAMAR SINGH (MAURICE) 1 [facility] [place] [address] * Albumin Creatinine Ratio, Urine (06/24/2024 10:04 AM CDT) Albumin Ur <12.0 mg/L Comment: Interpretive Data No reference range established. Current interpretive data was last revised 2018. Testing performed by: [facility], [address] [place] [address]., [address] Creatinine Ur 61.5 mg/dL [facility] (HIRAM) Comment: Interpretive Data No reference range established. Current interpretive data was last revised 2018. Testing performed by: [address] [address] Albumin Creatinine Ratio, Ur <20 1 - 29 mg/g [facility] (HIRAM) Comment:Testing performed by : [address] [address] Urine 06/24/2024 10:0 4 AM CDT 06/24/2024 2:22 PM CDT Stephanie Cole MD LAB URINE ORDERABLES Final Re sult Performing Organization Address [facility] Co de Phone Number JAMAR SINGH (MAURICE) 1 [place] [address] * Vitamin D 25 hydroxy (06/24/2024 10:04 AM CDT) Vitamin D 25-OH 36 30 - 80 ng/mL Blood 06/24/2024 10:0 4 AM CDT 06/24/2024 10:52 AM CDT us Stephanie Cole MD LAB BLOOD ORDERABLES Final Re sult Performing Organization Address City/[facility] Co de Phone Number JAMAR SINGH (MAURICE) 1 [facility] [place] [address] * Protime-INR (06/24/2024 10:04 AM CDT) PT 11.8 9.7 - 13.0 sec JAMAR [facility] (MAURICE) INR 1.09 0.90 - 1.20 [facility] (MAURICE) Comment: Interpretive data Oral anticoagulant therapeutic ranges: Venous thromboembolism prophylaxis or treatment: 2.0-3.0 CARDIOLOGY Standard range: 2.0-3.0 High-intensity range: 2.5-3.5 Refer to indication-specific guidelines for appropriate target ranges for prosthetic heart valve replacement. Current interpretive data was last revised on 2019. Blood 06/24/2024 10:0 4 AM CDT 06/24/2024 10:52 AM CDT Ran García MD LAB BLOOD ORDERABLES Final Resu lt Performing Organization Address [facility]/ZIP Co de Phone Number JAMAR [facility] (MAURICE) 1 [place] [address] * T3, free (06/24/2024 10:04 AM CDT) Free T3 3.7 2.0 - 4.4 pg/mL Comment:Testing performed by : [facility], [address] [place] [address], [facility] Blood 06/24/2024 10:0 4 AM CDT 06/24/2024 2:22 PM CDT Stephanie Cole MD LAB BLOOD ORDERABLES Final Re sult JAMAR [facility] ([place]URICE) 1 [place] [address] * TSH (06/24/2024 10:04 AM CDT) Thyroid Stimulating Hormone 0.62 0.30 - 4.20 mcIUnit/mL Blood 06/24/2024 10:0 4 AM CDT 06/24/2024 10:52 AM CDT Stephanie Cole MD LAB BLOOD ORDERABLES Final Re sult JAMAR [facility] (MAURICE) 1 [facility] [place] [address] * (ABNORMAL) T4, free (06/24/2024 10:04 AM CDT) Free T4 0.88(L) 0.90 - 1.70 ng/dL Blood 06/24/2024 10:0 4 AM CDT 06/24/2024 10:52 AM CDT Stephanie Cole MD LAB BLOOD ORDERABLES Final Re sult Performing Organization Address [facility] Co de Phone Number JAMAR SINGH (MAURICE) 1 [facility] [place] [address] * (ABNORMAL) Hemoglobin A1c (06/24/2024 10:04 AM CDT) Hgb A1C 6.9(H) 4.0 - 5.6 % Estimated Average Glucose 151 mg/dL [facility] (MAURICE) Comment: The ADA recommends reporting an estimated Average Glucose (eAG) with all Hemoglobin A1c results using the equation derived from a study of 507 normal and diabetic adults. Minority populations were underrepresented and children were not included. (Diabetes Care 31:6160-0516, 2008). The eAG is not equivalent to a fasting glucose. Blood 06/24/2024 10:0 4 AM CDT 06/24/2024 10:52 AM CDT Stephanie Cole MD LAB BLOOD ORDERABLES Final Re sult Performing Organization Address City/[facility] Co de Phone Number JAMAR SINGH (MAURICE) 1 [place] [address] * Bilirubin, direct (06/24/2024 10:04 AM CDT) Bilirubin, direct <0.1 0.1 - 0.3 mg/dL Blood 06/24/2024 10:0 4 AM CDT 06/24/2024 10:52 AM CDT us Stephanie Cole MD LAB BLOOD ORDERABLES Final Re sult [facility]AR [facility] (HIRAM) [address] [facility] [place] [address] * (ABNORMAL) Lipid panel (06/24/2024 10:04 AM [...] LAB BLOOD ORDERABLES Final Re sult JAMAR [facility] (HIRAM) [address] [facility] Department of Laboratories [place], [place] [id number] * (ABNORMAL) Comprehensive metabolic panel (06/24/2024 10:04 [...] ORDERABLES Final Re sult Performing Organization Address City/[facility]/ZIP Co de Phone Number JAMAR SINGH (HIRAM) [address] [facility] [place] [address] * (ABNORMAL) Basic metabolic panel (06/24/2024 10:04 [...] Final Resu lt JAMAR SINGH (HIRAM) [address] [facility] [place] [address] * ECG 12-LEAD (06/23/2024 2:23 PM CDT) [...] T waves normal Clinical impression: normal ECG Stephanie Cole MD ECG ORDERABLES Edited Result - Final * Hepatic function panel (05/19/2024 2:56 PM [employer]) Bilirubin, total 0.2 0.1 - 1.2 mg/dL [...] Hemolyzed S pecimen Blood 05/19/2024 2:56 PM [employer] 05/19/2024 3:53 PM [employer] Stephanie Cole MD LAB BLOOD ORDERABLES Final Re sult [facility] ([place]) [address] [facility] [place] [address] * LUNG CANCER SCREENING (01/19/2024) Scribed Lung Cancer Screening Normal Impressions Stephanie Cole MD - 01/19/2024 Low-dose CT chest 01/19/2024 at [facility] negative for suspicious nodules. Narrative Stephanie Cole MD - 01/19/2024 See scanned report. us Flori [facility] Fin al Result * MAMMOGRAPHY (11/28/2022) Mammography Normal Impressions Stephanie Cole MD - 11/28/2022 [facility] Narrative Stephanie Cole MD - 11/28/2022 See scanned report. us Betzaida Subramanian NP HEALTH MAINTENANCE Final Result * Hepatitis C antibody (01/21/2019 11:48 AM [employer]) Hep C Ab Negative Negative JAMAR SINGH (HIRAM) Comment:Testing performed by : [facility], [address] [place] [address], [facility] Blood specimen (specimen) 01/21/2019 11:48 AM [employer] 01/21/2019 7:22 PM [employer] us Aliya Huertas DO LAB MICROBIOLOGY - GENERAL ORDERABLES Final Result Performing Organization Address City/State/[facility] Co de Phone Number JAMAR SINGH (MAURICE) [address] [facility] [place] [address] * COLONOSCOPY (04/23/2017) Colonoscopy Abnormal us Historical Provider HEALTH MAINTENANCE Final Result from Last 3 Months or Most Recently Relevant to Health Maintenance Insurance [employer] SENIOR SUPPLEMENT MEDICARE MEDICARE [facility] MEDICARE [facility] MEDICARE SUPPLEMENT Advance Directives For more information, please contact: [phone] * Full Code (Latest Code Status on File) Date Activated Date Inactivated Comments 06/27/2024 1:07 PM 06/27/2024 7:17 PM * Full Code Date Activated Date Inactivated Comments 12/19/2019 5:44 PM 12/21/2019 2:39 PM * Full Code Date Activated Date Inactivated Comments 11/19/2019 8:23 PM 11/21/2019 2:56 PM * Full Code Date Activated Date Inactivated Comments 11/21/2018 5:09 PM 11/24/2018 6:00 PM Care Teams Checker Relationship Specialty Start Date End Date Stephanie Cole MD [address] [place] [address] PCP - General Internal Medicine 10/14/21 [place] [address] [place] [address] Consulting Physician Endocrinology Diabetes & Metabolism 01/21/19 [place] [address] [facility] [address] [place] [address] Referring Physician Psychiatry 01/21/19 [place] [address] [facility] [address] [place] [address] Consulting Physician Pain Management 09/25/22 Aminah Cheung OD [address] [place] [address] Consulting Physician Optometry 01/18/23 Flori Sotelo PA [address] [place] [address] Physician Caser Pulmonary Disease 01/26/24 Kostas Lr MD [address] [place] [address] Consulting Physician Cardiology 02/22/24 Jay Marc MD [address] [facility] [address] [place] [id number] Surgeon Orthopedic Surgery 04/21/24
--- OUTSIDE RECORDS SUMMARY | 2024-08-09 14:08 | XMS_ITS | Continuity of Care Document ---
Author Organization [facility] Address [id number] Jia norman [address] [place] [address] Phone Care Team Providers Care Radiochemical Technician Name Role Phone Jourdan Montes MD Unavailable [...] (6) HOURS NEEDED - No Longer Active Archer 5 mg-325 mg tablet take 1 tablet [...] Copied on Encounter OFFICE/OUTPA TIENT VISIT EST [facility], [address], [address], [place] tel:[phone] [facility] Body mass index [BMI] 36.0-36.9, adultAcute bilateral low back pain with left-sided sciaticaOther intervertebral disc displacement, lumbar region 8-202 1 Jyoti Soliman. [address] [place], [place], [id number]. tel:[phone] OFFICE/OUTPA TIENT VISIT EST [facility], [address] [place] [address], [address], tel:[phone] [facility] Body mass index (BMI) 39.0-39.9, adultPain in thoracic spine 0-201 9 Jyoti Soliman. [address] [place], [place], [id number]. tel:[phone] [facility], [address] [place] [address] [place], [address], [place] tel:[phone] [facility] [address] No Information 9 Tadeo Moreira. [address] [facility] [address], [place], [place], [id number]. tel:[phone] OFFICE/OUTPA TIENT VISIT [facility], [address] [address], [place], [address], [place] tel:[phone] [facility] Body mass index (BMI) 32.0-32.9, adultOther chronic postprocedural painCervicalgi aOther specified dorsopathies, cervical region 8 Tadeo Moreira. [address] [facility] [address], [place], [place], [id number]. tel:[phone] OFFICE/OUTPA TIENT VISIT [facility], [address] [place] [address], [address], [place] tel:[phone] [facility] Cervical post-laminecto my syndrome 8 Curylo Jay. [address] [place], [place], [id number]. tel:[phone] OFFICE/OUTPA TIENT VISIT [facility], [address] [address], [place], [address], [place] tel:[phone] [facility] Spinal stenosis of cervical regionCervical giaOther chronic postprocedural painCervical radiculopathy at C5 Jun- 9-201 8 Orencatherine Marie. [address] [place], [place], [id number]. tel:[phone] OFFICE/OUTPA TIENT VISIT [facility], [address] [place] [address], [address], [place] tel:[phone] [facility] Cervical post-laminecto my syndrome 0 2-201 8 Curylo Jay. [address] [place], [place], [id number]. tel:[phone] [facility], [address], [address], [place] tel:[phone] [facility] CervicalgiaCer vical radiculopathy at [id number] chronic postprocedural pain 8 Oren Marie. [address] [place], [place], [id number]. tel:[phone] OFFICE/OUTPA TIENT VISIT EST [facility], [address] [place] [address], [address], [place] tel:[phone] [facility] Acute pain of left shoulderCervic al post-laminecto my syndrome 8 Curylo Jay. [address] [place], [place], [id number]. tel:[phone] [facility], [address] [place] [address], [address], [place] tel:[phone] [facility] No Information 8 Curylo Jay. [address] [place], [place], [id number]. tel:[phone] [facility], [address] [place] [address], [address], [place] tel:[phone] [facility] Cervical post-laminecto my syndromePseuda rthrosis after fusion or arthrodesis 8 Curylo Jay. [address] [place], [place], [id number]. tel:[phone] OFFICE/OUTPA TIENT VISIT EST [facility], [address] [place] [address], [address], [place] tel:[phone] [facility] Body mass index (BMI) 33.0-33.9, adultCervical post-laminecto my syndromePseuda rthrosis after fusion or arthrodesis 8 Curylo Jay. [address] [place], [place], [id number]. tel:[phone] [facility], [address] [place] [address], [address], [place] tel:[phone] [facility] Cervical post-laminecto my syndrome Oct-3 7 Curylo Jay. [address] [place], [place], [address]. tel:[phone] [facility], [address] [place] [address], [address], [place] tel:[phone] [facility] Cervical post-laminecto my syndrome Sep-2 7 Curylo Jay. [address] [place] [address], [id number]. tel:[phone] [facility], [address] [place] [address], [address], [place] tel:[phone] [facility] Spinal stenosis of cervical region Sep-1 7 Curylo Jay. [address] [place], [place], [address]. tel:[phone] OFFICE/OUTPA TIENT VISIT EST [facility], [address] [place] [address], [address], [place] tel:[phone] [facility] CervicalgiaOth er chronic postprocedural painSpinal stenosis of cervical regionRadiculo orestes of cervical regionOther disturbances of skin sensation Sep-0 - 7 Tadeo Lillie. [address] [place] [address] [address], [place], [place], [id number]. tel:[phone] OFFICE/OUTPA TIENT VISIT EST [facility], [address] [place] [address], [address], [place] tel:[phone] [facility] Lumbago with sciatica, left sideSacroiliit isSpinal stenosis of lumbar regionOther intervertebral disc displacement, lumbar regionLumbago with sciatica, right side Aug-0 7 Oren Marie. [address] [place], [place], [address]. tel:[phone] [facility], [address] [place] [address], [address], [place] tel:[phone] [facility] Lumbago with sciatica, left side 7 Oren Marie. [address] [place], [place], [address]. tel:[phone] [facility], [address], [address], [place] tel:[phone] [facility] [address] No Information 7 Tari Thompson. [address] [place], [place], [id number]. tel:[phone] OFFICE/OUTPA TIENT VISIT EST [facility], [address] [place] [address], [address], [place] tel:[phone] [facility] Spinal stenosis of lumbar regionLumbago with sciatica, left sideSacroiliit is 7 Oren Marie. [address] [place], [place], [id number]. tel:[phone] OFFICE/OUTPA TIENT VISIT EST [facility], [address] [place] [address], [address], [place] tel:[phone] [facility] Other chronic postprocedural painMidline low back pain without sciaticaSacroi liitisSpinal stenosis of lumbar region 7 Oren Marie. [address] [place], [place], [address]. tel:[phone] [facility], [address] [place] [address], [address], [place] tel:[phone] [facility] SacroiliitisMi dline low back pain without sciaticaSpondy losis without myelopathy or radiculopathy, sacral and sacrococcygeal region 7 Oren Marie. [address] [place], [place], [id number]. tel:[phone] [facility], [address] [place] [address], [address], [place] tel:[phone] [facility] Sacroiliitis 0 7 Oren Frank. [address] [place], [place], [address]. tel:[phone] OFFICE/OUTPA TIENT VISIT [facility], [address] [place] [address], [address], [place] tel:[phone] [facility] Lumbago with sciatica, left sideSpinal stenosis of lumbar regionSacroili itisOther chronic postprocedural pain 7 Oren Frank. [address] [place], [place], [address]. tel:[phone] OFFICE/OUTPA TIENT VISIT [facility], [address] [place] [address], [address], [place] tel:[phone] [facility] low back pain (chief complaint) Spinal stenosis of lumbar regionLumbago with sciatica, left sideOther chronic postprocedural pain 6 Oren Frank. [address] [place] [address], [id number]. tel:[phone] Referring Provider: Jay Rodriguez, [address] [place] [address], [address] . tel:[phone] OFFICE/OUTPA TIENT VISIT [facility], [address] [place] [address], [address], [place] tel:[phone] [facility] lumbar-MRI results (chief complaint) Post laminectomy syndrome 6 Tari Thompson. [address] [place] [address], [id number]. tel:[phone] Referring Provider: Jay Rodriguez, [address] [place], [address] . tel:[phone] OFFICE/OUTPA TIENT VISIT [facility], [address] [place] [address], [address], [place] tel:[phone] [facility] Follow Up of lumbar (chief complaint) Post laminectomy syndromeLumbag o with sciatica, left side 3-201 6 Curylo Jay. [address] [place], [place], [address]. tel:[phone] [facility], [address] [place] [address], [address], [place] tel:[phone] [facility] Lumbago with sciatica, left sidePost laminectomy syndromeSpinal stenosis of lumbar region 6 Curylo Jay. [address] [place] [address], [id number]. tel:[phone] OFFICE/OUTPA TIENT VISIT [facility], [address] [place] [address], [address], [place] tel:[phone] [facility] Post laminectomy syndrome Ryan-0 2-201 6 Curylo Jay. [address] [place] [address], [id number]. tel:[phone] OFFICE/OUTPA TIENT VISIT [facility], [address] [place] [address], [address], [place] tel:[phone] [facility] Follow Up of CT Scan lumbar spine (chief complaint) Post laminectomy syndrome July- 3-201 6 Curylo Jay. [address] [place] [address], [id number]. tel:[phone] [facility], [address] [place] [address], [address], [place] tel:[phone] [facility] Post laminectomy syndromeLumbag o with sciatica, left side 6 Curylo Jay. [address] [place], [place], [address]. tel:[phone] [facility], [address] [place] [address], [address], tel:[phone] [facility] Post laminectomy syndrome 6 Curylo Jay. [address] [place], [place], [address]. tel:[phone] [facility], [address] [place] [address], [address], [place] tel:[phone] [facility] Post laminectomy syndrome 6 Curylo Jay. [address] [place], [place], [address]. tel:[phone] OFFICE/OUTPA TIENT VISIT [facility], [address] [place] [address], [facility], [place] tel:[phone] [facility] Spinal stenosis of lumbar region 6 Curylo Jay. [address] [place] [address], [id number]. tel:[phone] OFFICE/OUTPA TIENT VISIT [facility], [address] [place] [address], [address], tel:[phone] [facility] Midline low back pain without sciaticaSpondy lolisthesis of lumbar region 6 Curylo Jay. [address] [place], [place], [address]. tel:[phone] Referring Provider: Jarad Carl, [address] [facility] [address], [place], [address] . tel:[phone] Family History Family Member Type Diagnosis Age At Onset Daughter Problem (finding) Alive and well Daughter Problem (finding) Alive and well Payers Payer name Insurance type Covered green party ID Authoriza tion(s) [employer] [address] [id number] Social History Type Description Quantity Date Captured [...]
--- OUTSIDE RECORDS SUMMARY | 2024-08-09 14:08 | XMS_ITS | Continuity of Care Document ---
Author Organization [facility] Address [address] [place] [address] [address] [place] [address] Phone Care Team Providers Care Class 1 Owner Operator Name Role Phone Shane PT, Edvin Unavailable Unavailable Procedures Procedure Date Therapeutic Activities Neuromuscular Re-Ed Therapeutic Activities Neuromuscular Re-Ed Therapeutic Exercise Therapeutic Activities Neuromuscular Re-Ed Therapeutic Exercise Doc neg elder mal no plan PT Evaluation High Complexity Neuromuscular Re-Ed Therapeutic Activities Therapeutic Exercise THERAPEUTIC EXERCISES MANUAL THERAPY THERAPEUTIC [...] Diagnoses Date Provider Providers Copied on Encounter [facility] [address] [place] [address], [id number], tel:[phone] [place] No Information 3 Shane Frenchyn. . Referring Provider: Jay Marc, [address] [place] [address], [address]. tel:[phone], [id number], tel:[phone] [place] No Information 3 Shane Edvin. . Referring Provider: Jay Marc, [address] [place] [address], [address]. tel:[phone], [id number], tel:[phone] [place] No Information 3 Shane Edvin. . Referring Provider: Jay Marc, [address] [place] [address], [address]. tel:[phone], [id number], tel:[phone] [place] No Information 3 Shane Edvin. . Referring Provider: Jay Marc, [address] [place] [address] [place] [address], [address]. tel:[phone] [facility] [address], [id number], tel:[phone] [place] No Information 7 Yesenia Stein. [address] [place] [address], [address], [place], [facility], . tel: [phone] Referring Provider: Jay Marc, [address] [place] [address] [place] [address], [facility]. tel:[phone] [facility] [address], [id number], tel:[phone] [place] No Information 7 Nohelia Cerda. [address] [place] [address], [address], [facility], . tel:[phone] Referring Provider: Jay Marc, [address] [place] [address] [place] [address], [facility]. tel:[phone] [facility] [address] [place] [address], [id number], tel:[phone] [place] Lumbago with sciatica, left sideOth symptoms and signs involving the musculoskeletal systemMyalgiaPostlam inectomy syndrome, not elsewhere classified Dec 6 Nohelia Cerda. [address] [place] [address], [facility] [address], [place], [facility], . tel:[phone] Referring Provider: Jay Marc, [address] [place] [address] [place] [address], [facility]. tel:[phone] [facility] [address], [id number], tel:[phone] [place] Stiffness of unspecified joint, not elsewhere classifiedDisorder of muscle, unspecifiedMuscle weakness (generalized)Interve rtebral disc disorders with myelopathy, lumbar region Jun- [address] [facility], [address], [place], [address], [place]. tel: [phone] Referring Provider: Jay Marc, [address] [facility] [address] [place], [address]. tel:[phone] Family History Family Member Type Diagnosis Age At Onset No Information Payers Payer name Insurance type Covered republican ID Samuel hernández(s) [employer] Re[employer] CI [id number] Social History Type Description Quantity Date Captured [...]
[2024-08-09 14:16] VITALS: BP 125/71; PULSE 87; RESP 16; TEMP 37.1; O2SAT 95
[2024-08-09 14:54] LABS: EDUAAPPEAR Clear; EDUABILI Negative (Negative); EDUABLOOD Negative (Negative); EDUACOLOR1 Light/Pale; EDUAGLUCOSE Negative (Negative); EDUAKETONE Negative (Negative); EDUALEUKO Negative (Negative); EDUANITRATE Negative (Negative); EDUAPH 5.5; EDUAPROTEIN Negative (Negative); EDUAUROBILI 0.2
--- NOTE | 2024-08-09 15:01 | ED.BACK ---
HPI - Back Pain/Injury General Chief Complaint: Urogenital-Female Stated Complaint: Low Back Pain/Urinary Problem Time Seen by Provider: 08/09/24 14:50 Source: patient and RN notes reviewed Mode of arrival: ambulatory Limitations: no limitations History of Present Illness HPI Narrative: 64-year-old female presents Express Care complaining of lower back pain x2 days. Patient denies any apparent injury to her back. Patient denies pain is worse to the right side of her lower back. Patient states the pain is worse with turning her back side to side. Patient also reported increased urinary frequency. Patient states she recently had a UTI approximately 3-4 weeks ago was treated with antibiotics. Denies any burning with urination, suprapubic pain, abdominal pain, fevers, nausea, vomiting, diarrhea, body aches, chills. Patient reports having recent surgery in March of this year to her thoracic spine due to a cyst and herniated disc. Patient's pain is nonradiating, she denies any pain shooting into her legs, saddle anesthesia, or any loss of bowel or bladder function. Patient has a history of hypertension, diabetes, COPD. Related Data Home Medications ?Medication ?Instructions ?Recorded ?Confirmed ?Last Taken ?Type atorvastatin 40 mg tablet 40 mg PO QHS 06/27/22 01/21/24 Unknown History desvenlafaxine succinate 100 mg 100 mg PO DAILY 06/27/22 01/21/24 Unknown History tablet,extended release 24 hr (Pristiq) ergocalciferol (vitamin D2) 1,250 1,250 mcg PO WEEKLY 06/27/22 01/21/24 Unknown History mcg (50,000 unit) capsule famciclovir 250 mg tablet 250 mg PO Q12H 06/27/22 01/21/24 Unknown History gabapentin 300 mg capsule 300 mg PO BID 06/27/22 01/21/24 Unknown History nortriptyline 10 mg capsule 10 mg PO QHS 06/27/22 01/21/24 Unknown History pregabalin 100 mg capsule 100 mg PO DAILY 11/15/22 01/21/24 Unknown History liothyronine 5 mcg tablet 10 mcg PO BID 09/25/23 01/21/24 Unknown History lorazepam 0.5 mg tablet 0.5 mg PO DAILY PRN 09/25/23 01/21/24 Unknown History losartan 25 mg tablet 25 mg PO DAILY 09/25/23 01/21/24 Unknown History metformin 500 mg tablet 500 mg PO BID 09/25/23 01/21/24 Unknown History propranolol 20 mg tablet 20 mg PO BID 09/25/23 01/21/24 Unknown History quetiapine 100 mg tablet 200 mg PO QHS 09/25/23 01/21/24 Unknown History Allergies Allergy/AdvReac Type Severity Reaction Status Date / Time lithium AdvReac Severe shakes Uncoded 01/21/24 14:32 Review of Systems Review of Systems: CONSTITUTIONAL: Denies fever, chills, body aches, or sweats. EYES: Denies visual changes, redness, or discharge. ENT: Denies rhinorrhea, congestion, sore throat, or otalgia. CARDIOVASCULAR: Denies chest pain, palpitations, or edema. RESPIRATORY: Denies cough or dyspnea. GASTROINTESTINAL: Denies abdominal pain, nausea, vomiting, or diarrhea. GENITOURINARY: Denies dysuria or hematuria. Positive for increased frequency. SKIN: Denies rash or itching. MUSCULOSKELETAL: Positive for back pain. Negative for joint pain, or myalgia. NEUROLOGIC: Denies headache, numbness, or weakness. PSYCHIATRIC: Denies anxiety or depression. All other systems reviewed are negative, except as documented in HPI. [facility] Past Medical History Medical History Anxiety Psychiatrist - Dr Zachary Hurley Chronic back pain and cervical stenosis. 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 There is no relevant family history pertinent to the patient complaint. Exam Narrative: GENERAL: This is a well-nourished, well-developed adult, in no apparent distress. They are non ill-appearing, nontoxic appearing. Patient is obese. Physical exam limited due to large body habitus. HEAD: normocephalic, atraumatic. EYES: Sclera clear/white. Conjunctiva normal. Vision is grossly intact. Extraocular movements intact EARS: External ears normal, Hearing grossly intact. NOSE: External nose normal THROAT: Mucous membranes moist, NECK: Neck supple, non-tender without lymphadenopathy, masses or thyromegaly. No cervical point tenderness, step-offs, or crepitus. CARDIOVASCULAR: Regular rate and rhythm without murmurs, gallops, or rubs. RESPIRATORY: Clear to auscultation. Breath sounds equal bilaterally. No wheezes, rales, or rhonchi. Respiratory rate normal, respiratory effort nonlabored, no respiratory distress GASTROINTESTINAL: Abdomen is large, soft, non-tender, nondistended. Bowel sounds are active. No hepato-splenomegaly, or palpable masses. No guarding or rigidity. SKIN: warm, Dry, intact with no suspicious lesions or rash, good texture and turgor. NEURO: awake, alert, and oriented to person, place and time. There were no obvious focal neurologic abnormalities. EXTREMITIES: No joint tenderness, effusion, or edema noted. BACK: Tenderness to palpation to the right lower back region. Muscle feels tight. No CVA tenderness. No thoracic or lumbar point tenderness, crepitus, or step-offs. Previous scarring present to her lower spine due to surgery. Course Course Emergency Course: Portions of this record may have been created with voice recognition software Level of Care: Express Care Visit Vital Signs Vital signs: Vital Signs Temperature 98.8 F 08/09/24 14:16 Pulse Rate 87 08/09/24 14:16 Respiratory Rate 16 08/09/24 14:16 Blood Pressure 125/71 08/09/24 14:16 Pulse Oximetry 95 08/09/24 14:16 Oxygen Delivery Room Air 08/09/24 14:16 Temperature 98.8 F 08/09/24 14:16 Pulse Rate 87 08/09/24 14:16 Respiratory Rate 16 08/09/24 14:16 Blood Pressure 125/71 08/09/24 14:16 Pulse Oximetry 95 08/09/24 14:16 Oxygen Delivery Room Air 08/09/24 14:16 Reviewed MDM - Back Pain/Injury MDM Narrative Medical decision making narrative: Urine dipstick negative for any signs of infection or acute findings. Urine culture is pending. Symptoms are likely consistent with a musculoskeletal issue of her back. Patient already has as needed muscle relaxers at home. Will prescribe lidocaine patches as needed for pain. Discussed physical exam findings. Advised supportive measures and signs/symptoms to go to the ER. Pt is appropriate for outpt treatment and f/u. Differential Diagnosis Differential diagnosis: Likely lumbar radiculopathy, strain of lumbar region and other (Urinary tract infection) Lab Data Attestation: I reviewed the patient's lab results. Labs: Lab Results 08/09/24 Range/Units 14:51 POC Urine Color Light/pale POC Urine Clarity Clear POC Urine pH 5.5 POC Ur Specif [place] 1.010 POC Urine Protein Negative (Negative) POC Ur Glucose (UA) Negative (Negative) POC Urine Ketones Negative (Negative) POC Urine Blood Negative (Negative) POC Urine Nitrite Negative (Negative) POC Urine Bilirubin Negative (Negative) POC Urine Urobilinogen 0.2 POC U Leukocyte Esteras Negative (Negative) Critical Care Time Critical Care Time Critical Care Time: No Discharge Plan Discharge Clinical Impression: Low back pain Qualifiers: Chronicity: acute Back pain laterality: unspecified Sciatica presence: without sciatica Qualified Code(s): M54.50 - Low back pain, unspecified Patient Disposition: Home Condition: Stable Instructions: Antibiotic Form Additional Instructions: Your Urine dipstick is negative for any signs of infection or any other findings. A urine culture will be sent off and if it is positive you will be contacted in be prescribed appropriate antibiotics at that time. Pain is likely related to a muscle skeletal history of your back. You may take Tylenol or ibuprofen as needed for pain. Use the lidocaine patches as directed. You may also take your prescribed muscle relaxers as needed for muscle spasms. Please do not drive or operate machinery while taking that medication as it may make you drowsy. Follow-up with primary care provider in 3-5 days. If he develops any fevers, abdominal pain, urinary symptoms, loss of bowel or bladder function, numbness or tingling to her growing, or any other concerns please go to the ER immediately. Patient Language: Malay Prescriptions: New lidocaine 5 % adhesive patch,medicated 1 patch topical DAILY Qty: 15 0RF Rx Instructions: leave on most painful area for up to 12 hrs No Action desvenlafaxine succinate [Pristiq] 100 mg tablet extended release 24 hr 100 mg PO DAILY famciclovir 250 mg tablet 250 mg PO Q12H gabapentin 300 mg capsule 300 mg PO BID atorvastatin 40 mg tablet 40 mg PO QHS nortriptyline 10 mg capsule 10 mg PO QHS ergocalciferol (vitamin D2) 1,250 mcg (50,000 unit) capsule 1,250 mcg PO WEEKLY pregabalin 100 mg capsule 100 mg PO DAILY liothyronine 5 mcg tablet 10 mcg PO BID losartan 25 mg tablet 25 mg PO DAILY metformin 500 mg tablet 500 mg PO BID propranolol 20 mg tablet 20 mg PO BID quetiapine 100 mg tablet 200 mg PO QHS lorazepam 0.5 mg tablet 0.5 mg PO DAILY PRN budesonide-formoterol 160-4.5 mcg/actuation HFA aerosol inhaler 2 puff inhalation Q12H Qty: 10.2 5RF Rx Instructions: Rinse mouth and spit after each use varenicline tartrate 1 mg tablet 1 mg PO BID Qty: 56 2RF Breztri Aerosphere 160-9-4.8 mcg/actuation HFA aerosol inhaler 2 inh inhalation BID Qty: 32.1 3RF Rx Instructions: Rinse mouth and spit after each use. albuterol sulfate 2.5 mg /3 mL (0.083 %) solution for nebulization 2.5 mg inhalation Q4-6H PRN (Reason: shortness of breath or wheezing) Qty: 180 3RF albuterol sulfate 90 mcg/actuation HFA aerosol inhaler 1 - 2 puff inhalation Q4-6H PRN (Reason: shortness of breath or wheezing) Qty: 8.5 2RF eszopiclone [Lunesta] 2 mg tablet 2 mg PO ONCE Qty: 1 0RF Rx Instructions: Take with you to sleep lab on the night of sleep study. Follow-up/Referrals: Jim,Naveed Amin MD [Primary Care Provider] - Time of Disposition: 14:59
== END 2024-08-09 15:06 | disposition home or self-care (01) ==
PROVIDERS: PCP Internal Medicine Infectious Disease
DX: M54.50 Low back pain, unspecified (principal); I10 Essential (primary) hypertension; E11.9 Type 2 diabetes mellitus without complications; Z79.84 Long term (current) use of oral hypoglycemic drugs; J44.9 Chronic obstructive pulmonary disease, unspecified; E03.9 Hypothyroidism, unspecified
CPT/HCPCS: 81003; 87086; 99213; G0463

== ENCOUNTER 2024-09-04 08:19 | Outpatient (CLI) | payer MEDICARE, SELFPAY ==
--- OUTSIDE RECORDS SUMMARY | 2024-09-04 08:25 | XMS_ITS | Clinical Summary ---
Author Organization [facility] Address [facility] [place] [address] Care Team Providers Care Proofer Prepress Name Role Phone Unavailable Primary Care Provider [...]
--- OUTSIDE RECORDS SUMMARY | 2024-09-04 08:25 | XMS_ITS | Encounter Summary ---
Author Organization [facility] Address [address] [place] [address] Care Team Providers Care Cloth Layer Name Role Phone Naveed Fernandez MD Primary Care Provider Unavail able Encounter Details Date Type Department Care Team (Late st Contact Info) Description 06/04/2023 [facility]phone [facility] [address] [place] [address] [place] [id number] [place] [phone] Social History Tobacco Use Types Packs/Day [...] than three times a week 04/20/2023 Attends [employer] Services Not on file 04/20 Active Member [...] PM CDT Legal Sex Female 4:52 AM MULTIPLE WIRE SAWYER Gender Identity Female 01/14/2024 8:12 PM CDT Sexual Orientation Choose not to disclose 2023 8:12 PM CDT documented as of this encounter Miscellaneous Notes * Telephone Encounter - Rand Abrams RN - 06/04/2023 3:45 PM CDT Call out to [facility] and spoke with Yasir wound vac placed on hold. documented in this encounter Plan of Treatment Not on file documented as of this encounter Visit Diagnoses Not on filedocumented in this encounter Additional Health Concerns Infection Onset Date Last Indicated Resolved Time R/O Respiratory 02/10/2024 02/10/2024 02/10/2024 8 :05 PM MULTIPLE WIRE SAWYER R/O Respiratory 03/31/2024 03/31/2024 03/31/2024 5 :16 PM MULTIPLE WIRE SAWYER COVID-19 03/31/2024 03/31/2024 04/20/2024 1:16 AM MULTIPLE WIRE SAWYER R/O C. diff 04/01/2024 04/01/2024 04/02/2024 3:00 AM MULTIPLE WIRE SAWYER documented as of this encounter Care Teams Cloth Layer Relationship Specialty Start Date End Date Naveed Fernandez MD PCP - General Internal Medicine 04/21/23 Flori Mcdonald Nurse Practitioner Pulmonology 04/06/23 documented as of this encounter
--- OUTSIDE RECORDS SUMMARY | 2024-09-04 08:25 | XMS_ITS | Encounter Summary ---
Author Organization [facility] Healthcare Address [facility] [place] [address] Care Team Providers Care Senior Electrical Designer Name Role Phone Chago Randolph MD Unavailable Zachary Hurley MD Unavailable Naveed Fernandez MD Primary Care Provider Osvaldo Feldman MD Unavailable [phone] Aminah Cheung OD Unavailable Flori Sotelo Unavailable Kostas Lr MD Unavailable [phone] Jay Marc MD Unavailable Encounter Details Date Type Department Care Team (Late st Contact Info) Description 07/23/2024 Results Follow-Up [facility] [address] [place] [address] Naveed Fernandez MD [address] [place] [address] Urinalysis reflex to microscopic, TSH, T4, free, Additional followed-up results: 4 Social History Tobacco Use Types Packs/Day Years Used Date Smoking Tobacco: Every Day Cigarettes 1 47.5 Started: 03/19/1977 Smokeless Tobacco: Never Comments:40 pack/years Alcohol Use Standard Drinks/Week Comments Not Currently 0 (1 standard drink = 0.6 oz pur e alcohol) Social Connection and Isolation Panel [NHANES] A nswer Date Recorded Frequency of Communication with Friends and Fami ly Not on file 01/30/2020 Frequency of Social Gatherings with Friends and Family Not on file 01/30/2020 How often do you attend baptist or jain serv ices? 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 Gender Identity Female 05/05/2022 8:09 AM MOISTURE MACHINE TENDER Sexual Orientation Straight 11/04/2018 1: 20 PM CDT Occupation Industry Job Start Date Job End Date disabled Not on file Not on file Not on file documented as of this encounter Plan of Treatment Not on file documented as of this encounter Visit Diagnoses Not on filedocumented in this encounter Care Teams Senior Electrical Designer Relationship Specialty Start Date End Date Naveed Fernandez MD [address] [facility] [address] [place] [address] PCP - General Internal Medicine 10/14/21 [place] [address] [facility] [address] [place] [address] Consulting Physician Endocrinology Diabetes & Metabolism 01/21/19 [place] [address] [address] [facility] [address] [place] [address] Referring Physician Psychiatry 01/21/19 [place] [address] [facility] [address] [place] [address] Consulting Physician Pain Management 09/25/22 Aminah Cheung OD [address] [place] [address] Consulting Physician Optometry 01/18/23 Flori Sotelo PA [address] [place] [address] Physician Geographic Area Intelligence Officer Pulmonary Disease 01/26/24 Kostas Lr MD [address] [facility] [address] [place] [address] Consulting Physician Cardiology 02/22/24 Jay Marc MD [address] [facility] [address] [place] [id number] Surgeon Orthopedic Surgery 04/21/24 documented as of this encounter
--- OUTSIDE RECORDS SUMMARY | 2024-09-04 08:25 | XMS_ITS | Clinical Summary ---
Author Organization [facility] Address [address] [place] [address] Phone Care Team Providers Care Recruitment Director Name Role Phone Afshin Willis MD Unavailable [phone] Kenyatta Comer MD Primary Care Provider [phone] Sumanth Chan MD Unavailable Allergies Active Allergy Reactions Criticality Noted Date Comments Brenda Other (see Comments) 01/31/2015 Other Itching 02/24/2015 [...] [facility] - General [facility] - [place] [address] [phone] Sumanth Chan MD Skin tag (Primary Dx); [...] Used Date Smoking Tobacco: Every Day Cigarettes 0.7 49.5 Started: 1975 Smokeless Tobacco: Never Alcohol Use [...] 2:06 PM CDT Height 175.3 cm (5' 9) 06/10/2024 2:06 PM CDT Body Mass Index 40.76 06/10/2024 2:06 PM CDT Plan of Treatment Health Maintenance Due Date Last Done Comments Hepatitis C Virus (HCV) Screening 1960 Cologuard 2005 Colonoscopy 2005 Respiratory Syncytial Virus (RSV) Immunization (Adult) (1 - Risk 60-74 years 1-dose series) 2020 Colorectal Cancer Screening 07/12/2022 Immunochemical Fecal Occult Blood 07/12/2022 07/12/2021 Mammogram [...] Routine 06/10/2024 3:03 PM CDT Skin tag [facility] SCREENING BILATERAL DIGITAL W CAD W VERA Routine 04/15/2018 1:04 PM DRESS DRAPER Encounter for screening mammogram for malignant neoplasm [...] PROCEDURE/MINOR SURGICAL ORDERAB LES Final Result * [facility] SCREENING BILATERAL DIGITAL W CAD W VERA (04/15/2018 1:04 PM DRESS DRAPER) Anatomical Region Laterality Modality breast Bilateral Mammography 04/15/2018 6:06 AM DRESS DRAPER Narrative 05/08/2018 9:53 AM DRESS DRAPER - [facility] SCREENING BILATERAL DIGITAL W CAD [...] to exams dated: 04/10/2017, 11/10/2016, and 10/07/2015 [facility]. BREAST TISSUE:There are scattered fibroglandular densities in [...] exam. Electronically signed by: Yrn syed/regla:05/08/2018 08:57:19 Dry Can Tender: Sidra Buck)(M), [facility] letter sent: Normal Exam Reading location: [facility] BI-RADS: 1 Negative Procedure Note Yrn Burr MD - 05/08/2018 - [facility] SCREENING BILATERAL DIGITAL W CAD W VERA [...] to exams dated: 04/10/2017, 11/10/2016, and 10/07/2015 [facility]. BREAST TISSUE:There are scattered fibroglandular densities in [...] exam. Electronically signed by: Yrn syed/penrad:05/08/2018 08:57:19 Dry Can Tender: Sidra Buck)(M), [facility] letter sent: Normal Exam Reading location: [facility] [...] 2. Severe hepatic steatosis. Baron Bansal MD [facility] ORDERABLES Final Res ult from Last 3 Months or Most Recently Relevant to Health Maintenance Insurance MEDICARE [facility] Care Teams Recruitment Director Relationship Specialty Start Date End Date Kenyatta Comer MD [address] [facility] [address] [place] [phone] PCP - General Internal Medicine 03/02/17 Afshin Willis MD General Surgery 05/17/16 Sumanth Chan MD [address] [address] Consulting Physician Colon and Rectal Surgery 06/10/24
--- OUTSIDE RECORDS SUMMARY | 2024-09-04 08:25 | XMS_ITS | Encounter Summary ---
Author Organization [facility] Address [address] [place] [address] Care Team Providers Care Attraction Attendant Name Role Phone Naveed Fernandez MD Primary Care Provider Unavail able Encounter Details Date Type Department Care Team (Late st Contact Info) Description 04/17/2002 Inpatient Historical HIS PATIENT IN A BED Clint Vazquez MD [address] [place] [phone] MANIC-DEPRESSIVE NEC (CMS/HCC) (Primary Dx) Social History Tobacco Use Types Packs/Day Years Used Date Smoking Tobacco: Never Assessed Comments Unknown Sex and Gender Information Value Date Recorded Sex Assigned at Female 01/14/2024 8:12 PM CDT Legal Sex Female 4:52 AM ENAMEL BURNER Gender Identity Female 01/14/2024 8:12 PM CDT Sexual Orientation Choose not to disclose 2023 8:12 PM CDT documented as of this encounter Plan of Treatment Not on file documented as of this encounter Visit Diagnoses Diagnosis Other bipolar disorders- Primary documented in this encounter Additional Health Concerns Infection Onset Date Last Indicated Resolved Time R/O Respiratory 02/10/2024 02/10/2024 02/10/2024 8 :05 PM ENAMEL BURNER R/O Respiratory 03/31/2024 03/31/2024 03/31/2024 5 :16 PM ENAMEL BURNER COVID-19 03/31/2024 03/31/2024 04/20/2024 1:16 AM ENAMEL BURNER R/O C. diff 04/01/2024 04/01/2024 04/02/2024 3:00 AM ENAMEL BURNER documented as of this encounter Care Teams Attraction Attendant Relationship Specialty Start Date End Date Naveed Fernandez MD PCP - General Internal Medicine 04/21/23 Flori Mcdonald Nurse Practitioner Pulmonology 04/06/23 documented as of this encounter
--- OUTSIDE RECORDS SUMMARY | 2024-09-04 08:25 | XMS_ITS ---
theresults section. T3, FREE Routine 06/24/2024 10:04 AM CDT Adult hypothyroidism T4, FREE Routine 06/24/2024 10:04 AM CDT Adult hypothyroidism ECG 12-LEAD Routine 06/23/2024 2:23 PM CDT Chest pain, unspecified type LUNG CANCER SCREENING Routine 01/19/2024 MAMMOGRAPHY Routine 11/28/2022 HEPATITIS C ANTIBODY Routine 01/21/2019 11:48 AM HAND [employer] Encounter for hepatitis C screening test for low risk patient COLONOSCOPY Routine 04/23/2017 from Last 3 Months or Most Recently Relevant to Health Maintenance Results * (ABNORMAL) T3, free (09/01/2024 1:19 PM CDT) Free T3 1.7(L) 2.0 - 4.4 pg/mL Comment:Testing performed by : [facility], [address] [place] [address], [place]., [address] Blood 09/01/2024 1:19 PM CDT 09/01/2024 5:15 PM CDT Naveed Fernandez MD LAB BLOOD ORDERABLES Final Re sult [facility] [place] 1 [facility] [place] [address] * (ABNORMAL) TSH (09/01/2024 1:19 PM CDT) Thyroid Stimulating Hormone 4.36(H) 0.30 - 4.20 mcIUnit/mL Blood 09/01/2024 1:19 PM CDT 09/01/2024 1:36 PM CDT Naveed Fernandez MD LAB BLOOD ORDERABLES Final Re sult JAMAR SINGH ([place]) 1 [facility] [place] [address] * T4, free (09/01/2024 1:19 PM CDT) Free T4 1.25 0.90 - 1.70 ng/dL Blood 09/01/2024 1:19 PM CDT 09/01/2024 1:36 PM CDT Naveed Fernandez MD LAB BLOOD ORDERABLES Final Re sult Performing Organization Address City/[facility]/ZIP Co de Phone Number JAMAR SINGH ([place]) 1 [facility] [place] [address] * DIABETES EYE EXAM (07/31/2024 4:13 PM [...] 5 AM CDT 07/22/2024 10:29 AM CDT Naveed Fernandez MD LAB BLOOD ORDERABLES Final Re sult JAMAR SINGH ([place]) 1 [facility] [place] [address] * Urinalysis reflex to microscopic (07/22/2024 10:15 [...] tendency for uric acid stone formation. Source: [facility] [employer] Current Interpretive Data was last revised on [...] 5 AM CDT 07/22/2024 10:31 AM CDT Naveed Fernandez MD LAB URINE ORDERABLES Final Re sult Performing Organization Address City/[facility]/ZIP Co de Phone Number JAMAR SINGH ([place]) 1 [facility] [place] [address] * (ABNORMAL) T3, free (07/22/2024 10:15 AM CDT) Free T3 1.3(L) 2.0 - 4.4 pg/mL Comment:Testing performed by : [facility], [address] [place] [address], [place]., [address] Blood 07/22/2024 10:1 5 AM CDT 07/22/2024 2:22 PM CDT Naveed Fernandez MD LAB BLOOD ORDERABLES Final Re sult JAMAR SING[facility] ([place]) 1 [facility] [place] [address] * (ABNORMAL) TSH (07/22/2024 10:15 AM CDT) Thyroid Stimulating Hormone 7.55(H) 0.30 - 4.20 mcIUnit/mL Blood 07/22/2024 10:1 5 AM CDT 07/22/2024 10:29 AM CDT Naveed Fernandez MD LAB BLOOD ORDERABLES Final Re sult [facility] ([place]) 1 [facility] [place] [address] * T4, free (07/22/2024 10:15 AM CDT) Free T4 1.14 0.90 - 1.70 ng/dL Blood 07/22/2024 10:1 5 AM CDT 07/22/2024 10:29 AM CDT us Naveed Fernandez MD LAB BLOOD ORDERABLES Final Re sult [facility] ([place]) 1 [facility] [place] [address] * (ABNORMAL) Hemoglobin A1c (07/22/2024 10:15 AM CDT) Hgb A1C 7.9(H) 4.0 - 5.6 % Estimated Average Glucose 180 mg/dL [facility] ([place]) Comment: The ADA recommends reporting an estimated Average Glucose (eAG) with all Hemoglobin A1c results using the equation derived from a study of 507 normal and diabetic adults. Minority populations were underrepresented and children were not included. (Diabetes Care 31:6130-5598, 2008). The eAG is not equivalent to a fasting glucose. Blood 07/22/2024 10:1 5 AM CDT 07/22/2024 10:29 AM CDT us Naveed Fernandez MD LAB BLOOD ORDERABLES Final Re sult [facility] ([place]) 1 [facility] [place] [address] * (ABNORMAL) Comprehensive metabolic panel (07/22/2024 10:15 AM CDT) Sodium 137 135 - 145 mmol/L Potassium, pl 4.4 3.3 - 4.9 mmol/L [facility] ([place]) Chloride 99 97 - 110 mmol/L [facility] CO2 26 22 - 32 mmol/L [facility] ([place]) Anion gap 12 2 - 15 mmol/L [facility] ([place]) BUN 12 6 - 25 mg/dL [facility] ([place]) Creatinine 0.79 0.60 - 1.10 mg/dL [facility] ([place]) Glucose 147 70 - 199 mg/dL [facility] ([place]) Comment: Interpretive Data Fasting glucose [...] 2022. Calcium 9.2 8.5 - 10.3 mg/dL [facility] ([place]) Bilirubin, total 0.3 0.1 - 1.2 mg/dL [facility] ([place]) Protein, pl 7.1 6.5 - 8.5 g/dL [facility] ([place]) Albumin 3.7 3.5 - 5.0 g/dL [facility] ([place]) Alk phos 125 40 - 130 Units/L [facility] ([place]) ALT 102(H) 7 - 45 Units/L [facility] ([place]) AST 77(H) 10 - 45 Units/L [facility] ([place]) Blood 07/22/2024 10:1 5 AM CDT 07/22/2024 10:29 AM CDT Naveed Fernandez MD LAB BLOOD ORDERABLES Final Re sult [facility] ([place]) 1 [facility] [place] [address] * SCAN - LABS (07/14/2024 3:26 PM CDT) Naveed Fernandez MD Final Result * Urinalysis reflex to microscopic and culture Urine, clean voided (07/14/2024) Urine, clean voided Naveed Fernandez MD LAB MICROBIOLOGY - GENERAL OR DERABLES Edited Result - Final EXTERNAL LAB * POCT glucose (06/27/2024 1:43 PM CDT) Glucose, POC 115 70 - 199 mg/dL Blood 06/27/2024 1:43 PM CDT 06/27/2024 1:43 PM CDT Ran García MD LAB POCT ORDERABLES - DEVICE Fi nal Result JAMAR SINGH [place]) 1 [facility] Department of Laboratories [place], [place] [id number] * LEFT HEART CATHETERIZATION WITH CORONARY ANGIOGRAPHY AND WITH AND WITHOUT LEFT VENTRICULOGRAM (06/27/2024 12:10 PM CDT) Anatomical Region Laterality Modality X-Ray Angiograph y 06/27/2024 Narrative 06/30/2024 7:19 AM CDT [facility] Job ID: [id number] [facility] Document ID: [id number] Dictated date/time: [id number] CARDIAC CATHETERIZATION REPORT A 64-year-old with recurrent episodes of chest pain. She also had severe back pain. Presentation was concerning for angina. She was referred for catheterization. INDICATION FOR PROCEDURE Chest pain. PROCEDURES PERFORMED Left heart catheterization, selective coronary angiography, left ventriculography, vascular access closure. After obtaining informed consent, the patient was brought to the cardiac lab engineer suite. She was prepped and draped in the usual fashion. Conscious sedation was administered by the lab engineer staff under my supervision. A total of 8 mg of Versed, 300 mcg of fentanyl and 50 mg of Benadryl were given in divided doses. See procedure log for details. Total sedation time was 22 minutes. A 6-Taiwanese sheath was inserted in the right femoral [...] Ran García MD Job ID/Internal Job ID: [id number] Ran García MD CV CARDIAC CATH PROCEDURES Aziza l Result * POCT glucose (06/27/2024 9:13 AM CDT) Glucose, POC 197 70 - 199 mg/dL Blood 06/27/2024 9:13 AM CDT 06/27/2024 9:13 AM CDT Ran García MD LAB POCT ORDERABLES - DEVICE Fi nal Result Performing Organization Address City/State/[facility] Co de Phone Number [facility] 1 [facility] Department of Laboratories [place], [place] [id number] * XR Chest 1 Vw Portable (if [...] 06/26/2024 12:49 PM - Electronically signed by aMnfred Santos M.D. RB: ROLANDO Report ID: [id number] Reading Location: [id number] Procedure Note Manfred Santos MD - 06/26/2024 [...] Manfred Santos M.D. RB: ROLANDO Report ID: [id number] Reading Location: [place] [address] Kaitlin Muñoz MD IMG XR PROCEDURES F [...] BLOOD ORDERABLE S Final Result JAMAR SINGH ([place]) 1 [facility] [place] [address] * eGFR (06/26/2024 11:53 AM CDT) eGFR [...] BLOOD ORDERABLE S Final Result JAMAR S[facility] ([place]) 1 [facility] [place] [address] * (ABNORMAL) Differential, auto (06/26/2024 11:53 AM [...] S Final Result [facility] ([place]) 1 [facility] [place] [address] * (ABNORMAL) CBC with auto differential (06/26/2024 [...] S Final Result JAMAR SING[facility] ([place]) 1 [facility] [employer] [place] [address] * (ABNORMAL) Comprehensive metabolic panel (06/26/2024 11:53 [...] S Final Result [facility] ([place]) 1 [facility] [place] [address] * ECG 12 lead (06/26/2024 11:47 AM CDT) 06/26/2024 11:4 7 AM CDT Narrative [facility] - 06/26/2024 12:19 PM CDT Vent Rate: 80 bpm RR Interval: 748 msec MI Interval: 156 msec QRS Duration: 94 msec QT Interval: 343 msec QTC Interval: 379 msec P-R-T [place]: 56 - 60 - 49 degrees IMPRESSION: SINUS RHYTHM NORMAL ECG NO CHANGE FROM PREVIOUS TRACING NOTED Electronically Signed By: Ran García MD us Kaitlin Muñoz MD ECG ORDERABLES Fin al Result [facility] * eGFR (06/24/2024 10:04 AM CDT) eGFR [...] AM CDT 06/24/2024 10:52 AM CDT us Naveed Fernandez MD LAB BLOOD ORDERABLES Final Re sult [facility] ([place]) 1 [facility] [place] [address] * eGFR (06/24/2024 10:04 AM CDT) Pathologist [facility] eGFR >90 >=60 mL/min/1. 73 m2 Comment: [...] MD LAB BLOOD ORDERABLES Final Resu lt [facility] ([place]) 1 [facility] [place] [address] * (ABNORMAL) Differential, auto (06/24/2024 10:04 AM [...] revised on 2017. Monocyte pct 8.0 % [facility] ([place]) Comment: Interpretive Data [...] LAB BLOOD ORDERABLES Final Resu lt [facility]AR [facility] ([place]) 1 [facility] [place] [address] * (ABNORMAL) CBC with auto differential (06/24/2024 [...] RDW SD 46.0 35.7 - 48.1 fL [facility] ([place]) NRBC abs 0.00 0.00 - 0.01 K/cumm [facility] ([place]) Blood 06/24/2024 10:0 4 AM CDT 06/24/2024 10:52 AM CDT us Ran García MD LAB BLOOD ORDERABLES Final Resu lt JAMAR SINGH ([place]) 1 [facility] [place] [address] * Albumin Creatinine Ratio, Urine (06/24/2024 10:04 AM CDT) Albumin Ur <12.0 mg/L Comment: Interpretive Data No reference range established. Current interpretive data was last revised 2018. Testing performed by: [address] [address] Creatinine Ur 61.5 mg/dL [facility] ([place]) Comment: Interpretive Data No reference range established. Current interpretive data was last revised 2018. Testing performed by: [facility], [address] [place] [address]., [address] Albumin Creatinine Ratio, Ur <20 1 - 29 mg/g [facility] ([place]) Comment:Testing performed by : [facility], [address] [place] [address], [facility], [address] Urine 06/24/2024 10:0 4 AM CDT 06/24/2024 2:22 PM CDT Naveed Fernandez MD LAB URINE ORDERABLES Final Re sult Performing Organization Address City/[facility] Co de Phone Number [facility] ([place]) 1 [facility] [place] [address] * Vitamin D 25 hydroxy (06/24/2024 10:04 AM CDT) Vitamin D 25-OH 36 30 - 80 ng/mL Blood 06/24/2024 10:0 4 AM CDT 06/24/2024 10:52 AM CDT Naveed Fernandez MD LAB BLOOD ORDERABLES Final Re sult Performing Organization Address [facility] de Phone Number [facility] ([place]) 1 [facility] [place] [address] * Protime-INR (06/24/2024 10:04 AM CDT) PT 11.8 9.7 - 13.0 sec J[facility]AR SING[facility] ([place]) INR 1.09 0.90 - 1.20 [facility] ([place]) Comment: Interpretive data Oral anticoagulant therapeutic ranges: Venous thromboembolism prophylaxis or treatment: 2.0-3.0 CARDIOLOGY Standard range: 2.0-3.0 High-intensity range: 2.5-3.5 Refer to indication-specific guidelines for appropriate target ranges for prosthetic heart valve replacement. Current interpretive data was last revised on 2019. Blood 06/24/2024 10:0 4 AM CDT 06/24/2024 10:52 AM CDT Ran García MD LAB BLOOD ORDERABLES Final Resu lt Performing Organization Address [facility] Co de Phone Number JAMAR SING[facility] ([place]) 1 [place] [address] * T3, free (06/24/2024 10:04 AM CDT) Free T3 3.7 2.0 - 4.4 pg/mL Comment:Testing performed by : [facility], [address] [place] [address], [address] Blood 06/24/2024 10:0 4 AM CDT 06/24/2024 2:22 PM CDT Naveed Fernandez MD LAB BLOOD ORDERABLES Final Re sult Performing Organization Address [facility] de Phone Number JAMAR SINGH ([place]) 1 [facility] [place] [address] * TSH (06/24/2024 10:04 AM CDT) Thyroid Stimulating Hormone 0.62 0.30 - 4.20 mcIUnit/mL Blood 06/24/2024 10:0 4 AM CDT 06/24/2024 10:52 AM CDT Naveed Fernandez MD LAB BLOOD ORDERABLES Final Re sult Performing Organization Address [facility] Co de Phone Number JAMAR SING[facility] ([place]) 1 [facility] [place] [address] * (ABNORMAL) T4, free (06/24/2024 10:04 AM CDT) Free T4 0.88(L) 0.90 - 1.70 ng/dL Blood 06/24/2024 10:0 4 AM CDT 06/24/2024 10:52 AM CDT Naveed Fernandez MD LAB BLOOD ORDERABLES Final Re sult Performing Organization Address [facility]/State/[facility] Co de Phone Number JAMAR SING[facility] ([place]) 1 [place] [address] * (ABNORMAL) Hemoglobin A1c (06/24/2024 10:04 AM CDT) Hgb A1C 6.9(H) 4.0 - 5.6 % Estimated Average Glucose 151 mg/dL [facility] ([place]) Comment: The ADA recommends reporting an estimated Average Glucose (eAG) with all Hemoglobin A1c results using the equation derived from a study of 507 normal and diabetic adults. Minority populations were underrepresented and children were not included. (Diabetes Care 31:2854-0204, 2008). The eAG is not equivalent to a fasting glucose. Blood 06/24/2024 10:0 4 AM CDT 06/24/2024 10:52 AM CDT Naveed Fernandez MD LAB BLOOD ORDERABLES Final Re sult Performing Organization Address City/[facility] Co de Phone Number J[facility]AR SING[facility] ([place]) 1 [place] [address] * Bilirubin, direct (06/24/2024 10:04 AM CDT) Pathologist [facility] Bilirubin, direct <0.1 0.1 - 0.3 mg/dL Blood 06/24/2024 10:0 4 AM CDT 06/24/2024 10:52 AM CDT Naveed Fernandez MD LAB BLOOD ORDERABLES Final Re sult Performing Organization Address City/State/[facility] Co de Phone Number [facility]AR [facility] ([place]) 1 [facility] [place] [address] * (ABNORMAL) Lipid panel (06/24/2024 10:04 AM [...] revised on 2023. Non-HDL Cholesterol 86 mg/dL [facility] ([place]) Comment: Interpretive Data Ages < [...] AM CDT 06/24/2024 10:52 AM CDT us Naveed Fernandez MD LAB BLOOD ORDERABLES Final Re sult [facility] ([place]) 1 [facility] [place] [address] * (ABNORMAL) Comprehensive metabolic panel (06/24/2024 10:04 [...] AM CDT 06/24/2024 10:52 AM CDT us Naveed Fernandez MD LAB BLOOD ORDERABLES Final Re sult [facility] ([place]) 1 [facility] [place] [address] * (ABNORMAL) Basic metabolic panel (06/24/2024 10:04 AM CDT) Sodium 135 135 - 145 mmol/L Potassium, pl 4.5 3.3 - 4.9 mmol/L [facility] ([place]) Chloride 98 97 - 110 mmol/L [facility] ([place]) CO2 24 22 - 32 mmol/L [facility] ([place]) Anion gap 13 2 - 15 mmol/L [facility] ([place]) BUN 12 6 - 25 mg/dL [facility] ([place]) Creatinine 0.65 0.60 - 1.10 mg/dL [facility] ([place]) Glucose 264(H) 70 - 199 mg/dL [facility] ([place]) Comment: Interpretive Data Fasting glucose >/= 126 [...] 2022. Calcium 9.4 8.5 - 10.3 mg/dL [facility] ([place]) Blood 06/24/2024 10:0 4 AM CDT 06/24/2024 10:52 AM CDT us Ran García MD LAB BLOOD ORDERABLES Final Resu lt [facility] ([place]) 1 [facility] [place] [address] * ECG 12-LEAD (06/23/2024 2:23 PM CDT) Narrative Naveed Fernandez MD - 06/23/2024 2:23 PM CDT Naveed Fernandez MD 06/23/2024 5:21 PM ECG 12 lead Date/Time: 06/23/2024 2:23 PM Performed by: Naveed Fernandez MD Authorized by: Naveed Fernandez MD Comparison: compared with previous ECG from 12/19/2019 Similar to previous ECG Rhythm: sinus rhythm Rate: normal BPM: 88 QRS axis: normal Conduction: conduction normal ST Segments: ST segments normal T Waves: T waves normal Clinical impression: normal ECG us Naveed C. Stabell MD ECG ORDERABLES Edited Result - Final * LUNG CANCER SCREENING (01/19/2024) Scribed Lung Cancer Screening Normal Impressions Naveed Fernandez MD - 01/19/2024 Low-dose CT chest 01/19/2024 at [facility] negative for suspicious nodules. Narrative Naveed Fernandez MD - 01/19/2024 See scanned report. us Flori [facility] [employer]INTENANCE Fin al Result * MAMMOGRAPHY (11/28/2022) Mammography Normal Impressions Naveed Fernandez MD - 11/28/2022 [facility]. Narrative Naveed Fernandez MD - 11/28/2022 See scanned report. us Betzaida Subramanian NP HEALTH MAINTENANCE Final Result * Hepatitis C antibody (01/21/2019 11:48 AM HAND [employer]) Hep C Ab Negative Negative J[facility] ([place]) Comment:Testing performed by : [facility], [address] [place] [address], [place], [place]., [facility] Blood specimen (specimen) 01/21/2019 11:48 AM [employer] 01/21/2019 7:22 PM HAND [employer]ER Christelle Huertas DO LAB MICROBIOLOGY - GENERAL ORDERABLES Final Result Performing Organization Address City/State/[facility] Co de Phone Number [facility]AR [facility] ([place]) 1 [facility] [place] [address] * COLONOSCOPY (04/23/2017) Colonoscopy Abnormal us Historical Provider HEALTH MAINTENANCE Final Result from Last 3 Months or Most Recently Relevant to Health Maintenance Insurance [employer] SENIOR SUPPLEMENT MEDICARE MEDICARE [facility] MEDICARE [facility] MEDICARE SUPPLEMENT Advance Directives For more information, please contact: [phone] * Full Code (Latest Code Status on File) Date Activated Date Inactivated Comments 06/27/2024 1:07 PM 06/27/2024 7:17 PM * Full Code Date Activated Date Inactivated Comments 12/19/2019 5:44 PM 12/21/2019 2:39 PM * Full Code Date Activated Date Inactivated Comments 11/19/2019 8:23 PM 11/21/2019 2:56 PM * Full Code Date Activated Date Inactivated Comments 11/21/2018 5:09 PM 11/24/2018 6:00 PM Care Teams Supervisor Cellars Relationship Specialty Start Date End Date Naveed Fernandez MD [address] [place] [address] PCP - General Internal Medicine 10/14/21 [place] [address] [place] [address] Consulting Physician Endocrinology Diabetes & Metabolism 01/21/19 [place] [address] [place] [address] Referring Physician Psychiatry 01/21/19 [place] [address] [facility] [address] [place] [address] Consulting Physician Pain Management 09/25/22 Aminah Cheung OD [address] [address] Consulting Physician Optometry 01/18/23 Flori Sotelo PA [address] [place] [id number] Physician Yarn Man Pulmonary Disease 01/26/24 Kostas Lr MD [address] [place] [address] Consulting Physician Cardiology 02/22/24 Jay Marc MD [address] [place] [address] Surgeon Orthopedic Surgery 04/21/24
--- OUTSIDE RECORDS SUMMARY | 2024-09-04 08:25 | XMS_ITS | Encounter Summary ---
Author Organization [facility] Healthcare Address [facility] [place] [address] Care Team Providers Care Seed Analysis Laboratory Assistant Name Role Phone Chago Randolph MD Unavailable Zachary Hurley MD Unavailable [phone] Naveed Fernandez MD Primary Care Provider [phone] Osvaldo Feldman MD Unavailable Aminah Cheung OD Unavailable [phone] Flori Sotelo Unavailable Kostas Lr MD Unavailable Jay Marc MD Unavailable Encounter Details Date Type Department Care Team (Late st Contact Info) Description 08/06/2024 Results Follow-Up [facility] Medical [facility] [address] [place] [address] Naveed Fernandez MD [address] [place] [address] DIABETES EYE EXAM Social History Tobacco Use [...] file 01/30/2020 How often do you attend catholic or adventist serv ices? Never 01/30/2020 Do you belong to any clubs o r organizations such as catholic groups, unions, fraternal or athletic groups, or [...] on file Legal Sex Female 1:21 PM MALE IMPERSONATOR Gender Identity Female 05/05/2022 8:09 AM MALE IMPERSONATOR Sexual Orientation Straight 11/04/2018 1: 20 PM CDT Occupation Industry Job Start Date Job End Date disabled Not on file Not on file Not on file documented as of this encounter Plan of Treatment Not on file documented as of this encounter Visit Diagnoses Not on filedocumented in this encounter Care Teams Seed Analysis Laboratory Assistant Relationship Specialty Start Date End Date Naveed Fernandez MD [address] [facility] [address] [place] [address] PCP - General Internal Medicine 10/14/21 [place] [address] [facility] [address] [place] [address] Consulting Physician Endocrinology Diabetes & Metabolism 01/21/19 [place] [address] [facility] [address] [place] [address] Referring Physician Psychiatry 01/21/19 [place] [address] [facility] [address] [place] [address] Consulting Physician Pain Management 09/25/22 Aminah Cheung OD [address] [place] [address] Consulting Physician Optometry 01/18/23 Flori Sotelo PA [address] [place] [address] Physician Dicer Operator Pulmonary Disease 01/26/24 Kostas Lr MD [address] [facility] [address] [place] [address] Consulting Physician Cardiology 02/22/24 Jay Marc MD [address] [place] [id number] Surgeon Orthopedic Surgery 04/21/24 documented as of this encounter
--- OUTSIDE RECORDS SUMMARY | 2024-09-04 08:25 | XMS_ITS | Encounter Summary ---
Author Organization [facility] Healthcare Address [facility] [place] [address] Care Team Providers Care Clerk Cashier Name Role Phone Chago Randolph MD Unavailable Zachary Hurley MD Unavailable [phone] Naveed Fernandez MD Primary Care Provider Osvaldo Feldman MD Unavailable Aminah Cheung OD Unavailable Flori Sotelo Unavailable Kostas Lr MD Unavailable [phone] Jay Marc MD Unavailable [phone] Encounter Details Date Type Department Care Team (Late st Contact Info) Description 09/01/2024 Results Follow-Up [facility] Medical Group [facility] [address] [place] [address] Naveed Fernandez MD [address] [place] [address] T3, free, T4, free, TSH Social History Tobacco Use Types Packs/Day Years [...] file 01/30/2020 How often do you attend voodoo or scientology serv ices? Never 01/30/2020 Do you belong to any clubs o r organizations such as voodoo groups, unions, fraternal or athletic groups, or [...] on file Legal Sex Female 1:21 PM PURCHASING MANAGER/SALES Gender Identity Female 05/05/2022 8:09 AM PURCHASING MANAGER/SALES Sexual Orientation Straight 11/04/2018 1: 20 PM CDT Occupation Industry Job Start Date Job End Date disabled Not on file Not on file Not on file documented as of this encounter Plan of Treatment Not on file documented as of this encounter Visit Diagnoses Not on filedocumented in this encounter Care Teams Clerk Cashier Relationship Specialty Start Date End Date Naveed Fernandez MD [address] [facility] [address] [place] [address] PCP - General Internal Medicine 10/14/21 [place] [address] [facility] [address] [place] [address] Consulting Physician Endocrinology Diabetes & Metabolism 01/21/19 [place] [address] [address] [facility] [address] [place] [address] Referring Physician Psychiatry 01/21/19 [place] [address] [facility] [address] [place] [address] Consulting Physician Pain Management 09/25/22 Aminah Cheung OD [address] [place] [address] Consulting Physician Optometry 01/18/23 Flori Sotelo PA [address] [place] [address] Physician Director Airport Pulmonary Disease 01/26/24 Kostas Lr MD [address] [facility] [address] [place], [place] [id number] Consulting Physician Cardiology 02/22/24 Jay Marc MD [address] [place] [id number] Surgeon Orthopedic Surgery 04/21/24 documented as of this encounter
--- OUTSIDE RECORDS SUMMARY | 2024-09-04 08:25 | XMS_ITS | Clinical Summary ---
Author Organization [facility] Address [address] [place] [address] Phone Care Team Providers Care Cone Worker Name Role Phone Naveed Fernandez MD Primary Care Provider Unavail able Allergies Active Allergy Reactions Criticality Noted Date Comments [place] Other (See Comments) Low 01/31/2015 tremors tremors [...] daily. 4 Active naloxone (NARCAN) 4 mg/spray [place], Non-Aerosol Administer 1 [place] in each nostril. 3 Active liothyronine (CYTOMEL) [...] moderate pain. 20 Tablet 03/30/2024 1:16 PM MANAGER TRAINING 5 Active losartan (COZAAR) 50 mg tablet [...] of Breath. 8.5 Gram 04/03/2024 2:51 PM MANAGER TRAINING 5 Active cyclobenzaprine (FLEXERIL) 5 mg Tablet Take 1 Tablet (5 mg) by mouth 3 times daily as needed for Spasm. 90 Tablet 04/03/2024 2:51 PM MANAGER TRAINING 5 Active albuterol (PROVENTIL,VENTOLI N) 2.5 mg /3 mL (0.083 %) Solution for Nebulization Take 3 mL (2.5 mg) by inhalation every 6 hours as needed for Shortness of Breath or Wheezing. 90 mL 04/03/2024 2:51 PM MANAGER TRAINING 01/16/202 5 Active predniSONE (DELTASONE) 20 mg tablet Starting 04/04: Take 2 Tablets (40 mg) by mouth daily with breakfast. 2 Tablet 04/03/2024 2:51 PM MANAGER TRAINING Active oxyCODONE (ROXICODONE) 10 mg tabletIndications: Spondylosis without myelopathy or radiculopathy, sacral and sacrococcygeal region Take 1 Tablet (10 mg) by mouth every 6 hours as needed for Pain. Max Daily Amount: 40 mg 20 Tablet 04/03/2024 2:51 PM MANAGER TRAINING Active polyethylene glycol 3350 (MIRALAX) 17 gram/dose Powder Starting 04/04: Dissolve 1 capful (17 Grams) in 8 ounces of fluid and drink by mouth once daily. mix as directed 510 Gram 04/03/2024 2:51 PM MANAGER TRAINING Active Active Problems Problem Noted Date Diagnosed [...] continued 7. Avoid alcohol sedatives and other [place] depression that may worsen sleep apnea and [...] 150 mcg daily. Patient does have a roller leveler, advised patient to follow-up with roller leveler. She is taking a medication, Cytomel, which has a common side effect of diaphoresis. Encouraged patient to speak to her roller leveler about possibly discontinuing this medication. Last Assessment & Plan: Recent labs were all within normal range with exception of her TSH which was slightly elevated. She was seen by the nurse practitioner at that time who increased her levothyroxine to 150 mcg daily. Patient does have a roller leveler, advised patient to follow-up with roller leveler. She is taking a medication, Cytomel, which has a common side effect of diaphoresis. Encouraged patient to speak to her roller leveler about possibly discontinuing this medication. Herpes simplex infection 01/19/2020 Essential hypertension 01/19/2020 Memory loss 01/19/2020 Hyperplastic polyp of sigmoid colon 01/01/2020 Overview (04/20/2023): Colonoscopy 04/23/2017 [facility] everywhere Colonoscopy 04/23/2017 [facility] everywhere Chronic migraine without aur [...] - 07/28/2024 11:59 PM CDT Hospital Encounter [address] [address] Jay Marc MD Discharge Disposition: Home or Self Care 07/15/2024 External Device Data STL ABSTRACTION Provider, Abstract 07/15/2024 External Device Data STL ABSTRACTION Provider, Abstract 07/07/2024 12:14 PM CDT - 07/07/2024 11:59 PM CDT Hospital Encounter [facility] Medicine Radiology [address] [place] [address] Jay Marc MD Discharge Disposition: Home or Self Care from Last 3 Months Immunizations Immunization Administration Dates Next Due (ADACEL/BOOSTRIX)(10 YR UP) TDAP VACCINE, 0.5ML, IM 05/18/2023 (PREVNAR 20)(6 WKS UP) PNEUM OCOCCAL CONJUGATE VACCINE 20-VALENT (PCV20), POLYSACCHARIDE [id number] CONJUGATE, ADJUVANT 0.5 ML (PF) IM 05/18/2023() [...] than three times a week 04/20/2023 Attends Synagogue Services Not on file 04/20 Active Member [...] PM CDT Legal Sex Female 4:52 AM MANAGER TRAINING Gender Identity Female 01/14/2024 8:12 PM CDT Sexual Orientation Choose not to disclose 2023 8:12 PM CDT Last Filed Vital Signs Vital Sign Reading Time Taken Comments Blood Pressure 129/48 04/03/2024 1:23 PM MANAGER TRAINING Pulse 63 04/03/2024 1:23 PM MANAGER TRAINING Temperature 36.6 C (97.8 F) 04/03/2024 1:23 PM MANAGER TRAINING Respiratory Rate 12 04/03/2024 8:08 AM MANAGER TRAINING Oxygen Saturation 91% 04/03/2024 1:23 PM MANAGER TRAINING Inhaled Oxygen Concentration - - Weight 125.9 kg (277 lb 9 oz) 03/31/2024 11:21 P M MANAGER TRAINING Height 172.7 cm (5' 8) 03/31/2024 2:26 PM MANAGER TRAINING Body Mass Index 42.2 03/31/2024 2:26 PM MANAGER TRAINING Plan of Treatment Health Maintenance Due Date Last Done Comments DIABETES ANNUAL RETINAL EXAM 1978 DIABETES MICROALBUMIN ANNUAL SCREEN 1978 FIT-DNA Q 3 years 2005 FIT/FOBT Q 1 year 2005 Flex Sig/CT Colonography Q 5 years 2005 RSV VACCINE (60+ or ) (1 - Risk 60-74 years 1-dose series) 2020 LDL CHOLESTEROL ANNUAL 01/17/2021 , 08/16/2018, 10/25/2017, Additional history exists BREAST CANCER [...] history exists Medical Devices Implanted Type Area Ceo And Founder Device Identifier Shelf Expiration Date Model / Serial / Lot Infuse Protein Kit [id number] - [id number] Implanted:Qty: 1 on 05/05/2015 by Jay Marc MD at [facility] N/A: Back MEDTRONIC- SOFAMOR DANEK [id number] 04/18/2017 [id number] / / [id number] [facility] Infuse Protein Kit Med 0516011 - [id number] Implanted:Qty: 1 on 04/20/2023 by Jay Marc MD at [facility] N/A: Spine Lumbar MEDTRONIC- SOFAMOR DANEK 2025 [id number] / / [id number] Sealant Duraseal 5ml [id number] Implanted:Qty: 1 on 03/26/2024 by Jay Marc MD at [facility] N/A: Spine Thoracic INTEGRA LIFESCIENCE HOLD CROW 07/16/2024 / / [id number] Infuse Protein Kit Med 0661877 - [id number] Implanted:Qty: 1 on 03/26/2024 by Jay Marc MD at [facility] N/A: Spine Thoracic MEDTRONIC- SOFAMOR DANEK [id number] 01/17/2025 [id number] / / [id number] Allgrft Spacer Acf 7mm 920116 - [id number] Implanted:Qty: 1 on 11/29/2016 by Jay Marc MD at [facility] Bone N/A: Spine Cervical Anterior MUSCULOSKELETAL TRANSPLANT FOU 11/16/2020 403023 / [id number] / Description:BOTH MTF SPACERS PROCESSED ON REQ# [id number] Allgrft Spacer Acf 7mm 352733 - [id number] Implanted:Qty: 1 on 11/29/2016 by Jay Marc MD at [facility] Bone N/A: Spine Cervical Anterior MUSCULOSKELETAL TRANSPLANT FOU 12/06/2020 718254 / [id number] / Allgrft Vivigen Matrix 10ml -1500-003 - [id number] Implanted:Qty: 1 on 07/13/2017 by Jay Marc MD at [facility] Bone N/A: Spine Cervical Posterior LIFENET 01/05/2018 -1500-003 / [id number] / Description:REQ#[id number] Allgrft Vivigen Matrix 10ml -1500-003 - [id number] Implanted:Qty: 1 on 07/13/2017 by Jay Marc MD at [facility] Bone N/A: Spine Cervical Posterior LIFENET 01/03/2018 -1500-003 / [id number] / Hemostatic Surgiflo 8ml W/Thrombin 2994 - [id number] Implanted:Qty: 1 on 07/13/2017 by Jay Marc MD at [facility] Hemostati c N/A: Spine Cervical Posterior J&J- ETHICON INC 09/15/2018 2994 / / [id number] Hemostatic Surgifoam Sz12-7 1972 - [id number] Implanted:Qty: 1 on 04/20/2023 by Jay Marc MD at [facility] Hemostati c N/A: Spine Lumbar J&J- ETHICON ENDO-SURGERY INC 12/13/2026 1972 / / [id number] Hemostatic Surgiflo 8ml W/ Thrombin 2994 - [id number] Implanted:Qty: 1 on 04/20/2023 by Jay Marc MD at [facility] Hemostati c N/A: Spine Lumbar J&J- ETHICON INC [id number] 06/16/2024 2994 / / [id number] Hemostatic Surgiflo 8ml W/ Thrombin 2994 - [id number] Implanted:Qty: 1 on 04/20/2023 by Jay Marc MD at [facility] Hemostati c N/A: Spine Lumbar J&J- ETHICON INC [id number] 04/18/2024 2994 / / [id number] Hemostatic Surgiflo 8ml W/ Thrombin 2994 - [id number] Implanted:Qty: 1 on 04/20/2023 by Jay Marc MD at [facility] Hemostati c N/A: Spine Lumbar J&J- ETHICON INC [id number] 04/18/2024 2994 / / [id number] Hemostatic Surgiflo 8ml W/ Thrombin 2994 - [id number] Implanted:Qty: 1 on 04/20/2023 by Jay Marc MD at [facility] Hemostati c N/A: Spine Lumbar J&J- ETHICON INC [id number] 05/16/2024 2994 / / [id number] Hemostatic Surgiflo 8ml W/ Thrombin 2994 - [id number] Implanted:Qty: 1 on 04/20/2023 by Jay Marc MD at [facility] Hemostati c N/A: Spine Lumbar J&J- ETHICON INC [id number] 05/16/2024 2994 / / [id number] Hemostatic Surgiflo 8ml W/ Thrombin 2994 - [id number] Implanted:Qty: 4 on 03/26/2024 by Jay Marc MD at [facility] Hemostati c N/A: Spine Thoracic J&J- ETHICON INC [id number] 05/16/2025 2994 / / [id number] Hemostatic Surgiflo 8ml W/ Thrombin 2994 - [id number] Implanted:Qty: 3 on 03/26/2024 by Jay Marc MD at [facility] Hemostati c N/A: Spine Thoracic J&J- ETHICON INC [id number] 05/16/2025 2994 / / [id number] Hemostatic Surgiflo 8ml W/ Thrombin 2994 - [id number] Implanted:Qty: 2 on 03/26/2024 by Jay Marc MD at [facility] Hemostati c N/A: Spine Thoracic J&J- ETHICON INC [id number] 03/18/2025 2994 / / [id number] Hemostatic Surgifoam Sz100 1974 - [id number] Implanted:Qty: 1 on 03/26/2024 by Jay Marc MD at [facility] Hemostati c N/A: Spine Thoracic J&J- ETHICON ENDO-SURGERY INC [id number] 12/27/20271973 / / [id number] Hemostatic Surgifoam Sz12-7 1971 - [id number] Implanted:Qty: 1 on 03/26/2024 by Jay Marc MD at [facility] Hemostati c N/A: Spine Thoracic J&J- ETHICON ENDO-SURGERY INC [id number] 01/15/20281971 877529 Hemostatic Surgiflo 8ml W/ Thrombin 299 - [id number] Implanted:Qty: 1 on 03/26/2024 by Jay Marc MD at [facility] Hemostati c N/A: Spine Thoracic J&J- ETHICON INC [id number] 02/15/20252993 / [id number] Plate Cslp Leonard Ang 66mm 450.175 - Sload 411, Sterilized 11/23/2016 Implanted:Qty: 1 on 11/29/2016 by Jay Marc MD at [facility] Plate N/A: Spine Cervical Anterior SYNTHES-STRATEC- SPINAL 450.175 / LOAD 411, STERILIZED 11/23/2016 / Description:ALL SYNTHES SPIN E HARDWARE PROCESSED ON REQ# [id number] 3.5mm Ti Curved Harsh 75mm Implanted:Qty: 2 on 07/13/2017 by Jay Marc MD at [facility] Harsh N/A: Spine Cervical Posterior 04.614.775 / / STERILIZED -07/13/17; VAC- 9; LOAD- [id number] Description:REQUISITION # 78 10974 Harsh Cdh Ccm 5.5x60mm Crvd [id number] - [id number] Implanted:Qty: 2 on 04/20/2023 by Jay Marc MD at [facility] Harsh N/A: Spine Lumbar MEDTRONIC- SOFAMOR DANEK [id number] / / LAOD 37, 04/17/23 100mm Medtronic Prebent Harsh Implanted:Qty: 2 on 03/26/2024 by Jay Marc MD at [facility] Harsh N/A: Spine Thoracic MEDTRONIC - COVIDIEN [id number] / / LOAD 13 STERILIZED 03/20/2024 Description:REQ [id number] Screw Xpnhead C Spine 4.52e35to 487.056 - Sload 411, Sterilized 11/23/2016 Implanted:Qty: 8 on 11/29/2016 by Jay Marc MD at [facility] Screw N/A: Spine Cervical Anterior SYNTHES STRATEC 487.056 / LOAD 411, STERILIZED 11/23/2016 / Screw Lock C Spine 1.8mm 497.78 - Sload 411, Sterilized 11/23/2016 Implanted:Qty: 8 on 11/29/2016 by Jay Marc MD at [facility] Screw N/A: Spine Cervical Anterior SYNTHES-STRATEC- SPINAL 497.78 / LOAD 411, STERILIZED 11/23/2016 / Screw Canc Polyaxial 3.5x12mm 04.614.012 - Ssterilization 9 Load [id number] Implanted:Qty: 6 on 07/13/2017 by Jay Marc MD at [facility] Screw N/A: Spine Cervical Posterior SYNTHES-STRATEC- MAXIFACIAL 04.614.012 / STERILIZATI ON 9 LOAD [id number] / Description:REQUISITION # [id number] Screw Canc Polyaxial 3.5x14mm 04.614.014 - Ssterilization 9 Load [id number] Implanted:Qty: 2 on 07/13/2017 by Jay Marc MD at [facility] Screw N/A: Spine Cervical Posterior SYNTHES-STRATEC- MAXIFACIAL 04.614.014 / STERILIZATI ON 9 LOAD [id number] / Screw Synapse Locking 04.614.508 - Ssterilization 9 Load [id number] Implanted:Qty: 8 on 07/13/2017 by Jay Marc MD at [facility] Screw N/A: Spine Cervical Posterior SYNTHES-STRATEC- SPINAL 04.614.508 / STERILIZATI ON 9 LOAD 124499 / 7.5mm X 45mm Screw Implanted:Qty: 2 on 04/20/2023 by Jay Marc MD at [facility] Screw N/A: Spine Lumbar MEDTRONIC- SOFAMOR DANEK 02/21/2028 [id number] / / [id number] 7.5mm X 45mm Screw Implanted:Qty: 3 on 04/20/2023 by Jay Marc MD at [facility] Screw N/A: Spine Lumbar MEDTRONIC- SOFAMOR DANEK 02/17/2028 [id number] / / [id number] 7.5mm X 45mm Screw Implanted:Qty: 1 on 04/20/2023 by Jay Marc MD at [facility] Screw N/A: Spine Lumbar MEDTRONIC- SOFAMOR DANEK 03/28/2028 [id number] / / [id number] Screw Solera 5.5/6.0 Breakoff 9005097 - [id number] Implanted:Qty: 6 on 04/20/2023 by Jay Marc MD at [facility] Screw N/A: Spine Lumbar MEDTRONIC- SOFAMOR DANEK [id number] / / LAOD 37, 04/17/23 Lane Coated Multi-Axial Screw For 5.5/6.0 Rods [id number] Implanted:Qty: 3 on 03/26/2024 by Jay Marc MD at [facility] Screw N/A: Spine Thoracic MEDTRONIC - COVIDIEN 08/30/2028 [id number] / / [id number] Lane Coated Multi-Axial Screw For 5.5/6.0 Rods [id number] Implanted:Qty: 1 on 03/26/2024 by Jay Marc MD at [facility] Screw N/A: Spine Thoracic MEDTRONIC - COVIDIEN 10/20/2027 [id number] / / [id number] Lane Coated Multi-Axial Screw For 5.5/6.0 Rods [id number] Implanted:Qty: 4 on 03/26/2024 by Jay Marc MD at [facility] Screw N/A: Spine Thoracic MEDTRONIC - COVIDIEN 01/06/2029 [id number] / / [id number] Screw Solera 5.5/6.0 Breakoff 6046493 - [id number] Implanted:Qty: 8 on 03/26/2024 by Jay Marc MD at [facility] Screw N/A: Spine Thoracic MEDTRONIC- SOFAMOR DANEK [id number] / / LOAD 13 STERILIZED 03/20/2024 Sealant Floseal W/ Adptr 10ml 6013328 - [id number] Implanted:Qty: 1 on 05/05/2015 by Jay Marc MD at [facility] Sealant N/A: Back BRITTON- BIOSCIENCE 07/16/2016 2667818 / / [id number] Sealant Floseal W/ Adptr 10ml 6327979 - [id number] Implanted:Qty: 1 on 05/05/2015 by Jay Marc MD at [facility] Sealant N/A: Back BRITTON- BIOSCIENCE [id number] 06/16/2016 7965782 / / [id number] Sealant Floseal 10ml 6356347 - [id number] Implanted:Qty: 2 on 11/29/2016 by Jay Marc MD at [facility] Sealant N/A: Spine Cervical Anterior BRITTON- Stromedix [id number] 01/20/2018 8685659 / / [id number] Log [id number] - Bladder Slings And Tapes - 1 - Sling Gynecare Tvt Exact Tvtrl Implanted:Qty: 1 on 04/18/2010 at [facility] Sling N/A: Urethra J&J- ETHICON INC 01/16/2011 TVTRL / / [id number] Allgrft Spcr Lmnry T-Plif 11mm 698826 - [id number] Implanted:Qty: 1 on 05/05/2015 by Jay Marc MD at [facility] Spacer N/A: Spine Lumbar MUSCULOSKELETAL TRANSPLANT FOU 09/30/2018 599633 / [id number] / Description:L5-S1This MTF sp acer was processed on requisition,[id number]. Bone Chips Canc 30ml 13624212 - [id number] Implanted:Qty: 1 on 04/20/2023 by Jay Marc MD at [facility] Tissue N/A: Spine Lumbar ALLOSOURCE [id number] 11/20/2027 65546001 / [id number] / Bone Chips Canc 30ml [id number] - [id number] Implanted:Qty: 1 on 04/20/2023 by Jay Marc MD at [facility] Tissue N/A: Spine Lumbar ALLOSOURCE [id number] 11/06/2027 [id number] / [id number] / Explanted Type Area Ceo And Founder Device Identifier Shelf Expiration Date Model / Serial / Lot Harsh Xpdm Crv W/Line 40mm [id number] - Stray Sterilized May 05, 2015,Load 26 Implanted:Qty: 2 on 05/05/2015 by Jay Marc MD at [facility] Explanted:Qty: 2 on 04/20/2023 by Jay Marc MD at [facility] Harsh N/A: Spine Lumbar J&J- DEPUY ORTHOPAEDICS INC 1796-826 / TRAY STERILIZED Apr,LOAD 26 / Description:Depuy spinal zaheer dware was processed on requisition,[id number]. Screw Exp Poly 7x40mm [id number] - Stray Sterilized May 05, 2015,Load 26 Implanted:Qty: 2 on 05/05/2015 by Jay Marc MD at [facility] Explanted:Qty: 2 on 04/20/2023 by Jay Marc MD at [facility] Screw N/A: Spine Lumbar J&J- DEPUY SPINE INC 1796-737 / TRAY STERILIZED Apr,LOAD 26 / Setscrew Inner [id number] - Stray Sterilized May 05, 2015,Load 26 Implanted:Qty: 4 on 05/05/2015 by Jay Marc MD at [facility] Explanted:Qty: 4 on 04/20/2023 by aJy Marc MD at [facility] Screw N/A: Spine Lumbar J&J- DEPUY SPINE INC 1797-02-000 / TRAY STERILIZED Apr,LOAD 26 / Screw Exp Poly 6x45mm 1797-12-645 - [id number] Implanted:Qty: 2 on 05/05/2015 by Jay Marc MD at [facility] Explanted:Qty: 2 on 04/20/2023 by Jay Marc MD at [facility] Screw N/A: Spine Lumbar J&J- DEPUY SPINE INC 1797--645 / / Description:Depuy spinal zaheer dware was processed on requisition,[id number]. Cervical Screw Explanted:Qty: 4 on 11/29/2016 by Jay Marc MD at [facility] Bilateral: Spine Cervical Anterior Description:unknown informat ion Cervical Plate Implanted:Qty: 1 Explanted:Qty: 1 on 11/29/2016 by Jay Marc MD at [facility] N/A: Spine Cervical Anterior Description:unknown informat ion Procedures Procedure Name Priority Date/Time Associated Diagnosis Comments MRI THORACIC W WO CONTRAST Routine 07/28/2024 2:41 PM CDT Postlaminectomy syndrome, thoracic region XR THORACIC SPINE 2 VW Routine 07/07/2024 12:49 PM CDT Spinal stenosis of thoracic region HEMOGLOBIN A1C Routine 04/06/2023 12:45 PM MANAGER TRAINING LIPID PANEL Routine 01/18/2020 3:14 PM MANAGER TRAINING MAMMO SCREEN BILAT W OR WO CAD [...] foraminal stenosis. DICTATION LOCATION: Location 1 - [facility] 07/28/2024 2:59 PM CDT EXAM: MRI THORACIC [...] foraminal stenosis. DICTATION LOCATION: Location 1 - [facility] us Jay Marc MD MR ORDERABLES Final Result [...] the thoracic spine. DICTATION LOCATION: Location 4 us Jay Marc MD DIAGNOSTIC IMAGING ORDERABLES F inal Result * (ABNORMAL) HEMOGLOBIN A1C (04/06/2023 12:45 PM MANAGER TRAINING) HEMOGLOBIN A1C 8.0(H) <5.7 % 04/06/2023 1:[address] [facility] EST. AVG GLUCOSE, A1C 183 mg/dL 04/06/2023 1:[address] [facility] Blood Venipuncture / Unknown 04/06/2023 12:45 PM MANAGER TRAINING 04/06/2023 1:32 PM MANAGER TRAINING [facility] - 04/06/2023 1:59 PM MANAGER TRAINING HGB A1C INTERPRETATION NORMAL: <5.7% PRE-DIABETES: 5.7 - 6.4% DIABETES: 6.5% OR GREATER Jay Marc MD CHEMISTRY ORDERABLES Final Resu lt [facility] [employer] [facility]# [id number] [address] [facility] [place] [address] * (ABNORMAL) LIPID PANEL (01/18/2020 3:14 PM MANAGER TRAINING) CHOLESTEROL 170 <200 mg/dL 01/19/2020 6:[address] [facility] TRIGLYCERIDE 254(H) <150 mg/dL 01/19/2020 6:[address] [facility] HDL 36(L) 40 - 59 mg/dL 01/19/2020 6:[address] [facility] LDL CALCULATED 83 <100 mg/dL 01/19/2020 6:[address] [facility] NON-HDL CHOLESTEROL 134(H) <130 mg/dL 01/19/2020 6:[address] [facility] Blood Venipuncture / Unknown 01/18/2020 3:14 PM MANAGER TRAINING 01/18/2020 3:25 PM MANAGER TRAINING [facility] - 01/19/2020 6:25 AM MANAGER TRAINING TOTAL CHOLESTEROL mg/dL Desirable <200 Borderline high [...] (NCEP/AMA) . Carlos Ventura MD CHEMISTRY ORDERABLES nal Result [facility]OR[facility]# [id number] [address] [facility] [address] * MAMMO SCREEN BILAT W OR WO CAD (04/15/2018) Anatomical Region Laterality Modality Breast Bilateral Mammography us Abstract Provider MAMMO ORDERABLES Edited Result - Final from Last 3 Months or Most Recently Relevant to Health Maintenance Insurance MEDICARE PART A AND B [facility] RX [employer] Medicare Part D RX [employer] (INTERNAL) [facility] Internal Plans Advance Directives For more information, please contact: [phone] * Full Code (Latest Code Status on [...] 6:21 PM 04/27/2023 11:58 AM Care Teams Cone Worker Relationship Specialty Start Date End Date Naveed Fernandez MD PCP - General Internal Medicine 04/21/23 Flori Mcdonald Nurse Practitioner Pulmonology 04/06/23
--- OUTSIDE RECORDS SUMMARY | 2024-09-04 08:25 | XMS_ITS | Clinical Summary ---
Author Organization [facility] Address [address] [place] [address] Care Team Providers Care Piercing Artist Name Role Phone Naveed Fernandez MD Primary Care Provider [phone] Source Comments [facility] [employer],non-owned Affiliates and Associated Physician Practices is amultiple site organization consisting of ambulatory clinics and hospital sitesin [place], [place], [place] and [place]. This disclosure is being madepursuant to the Care Everywhere program and may not contain all information available regarding this patient. Last updated [facility] Allergies Active Allergy Reactions Criticality Noted Date Comments [place] Other Low 01/31/2015 tremors severe shakes Powdered [...] Active vitamin D, ergocalciferol, (DRISDOL) 1.25 MG (68313 UT) capsule Take 1 (one) capsule by [...] (10/18/2020): Last Assessment & Plan: Prescriptions sent. Uufaf-cw-[id number] exercises encouraged once pain level decreases. Return to clinic if no resolution of pain. Hyperhidrosis 08/06/2020 Overview (10/18/2020): Last Assessment & Plan: Recent labs were all within normal range with exception of her TSH which was slightly elevated. She was seen by the nurse practitioner at that time who increased her levothyroxine to 150 mcg daily. Patient does have a art installer, advised patient to follow-up with art installer. She is taking a medication, Cytomel, which has a common side effect of diaphoresis. Encouraged patient to speak to her art installer about possibly discontinuing this medication. Memory loss 01/19/2020 Hyperplastic polyp of sigmoid colon 01/01/2020 Overview (10/18/2020): Colonoscopy 04/23/2017 [facility] everywhere Chronic migraine without aur a [...] in your mouth on an sophie like Feathr or Raykui carries a zero net carb bread If [...] in much longer they will become mushy Girdletree and/or coconut flour instead of regular flour [...] pork rinds For yogurt, try Two Good arabic yogurt Use Pinterdarren for recipe ideas. Type [...] in much longer they will become mushy Girdletree and/or coconut flour instead of regular flour [...] pork rinds For yogurt, try Two Good arabic yogurt Use Pinterest for recipe ideas. Type [...] on file Legal Sex Female 5:53 AM BRICK BURNER Gender Identity Not on file Sexual Orientation Not on file Last Filed Vital Signs Vital Sign Reading Time Taken Comments Blood Pressure 129/80 01/24/2023 2:24 PM BRICK BURNER Pulse 81 01/24/2023 2:24 PM BRICK BURNER Temperature 36.7 C (98.1 F) 08/01/2012 5:43 AM CDT Respiratory Rate 16 01/24/2023 2:24 PM BRICK BURNER Oxygen Saturation 93% 01/24/2023 2:24 PM BRICK BURNER Inhaled Oxygen Concentration - - Weight 117.9 kg (260 lb) 10/18/2020 2:14 PM CDT Height 175.3 cm (5' 9) 10/18/2020 2:14 PM CDT Body Mass Index 38.4 10/18/2020 2:14 PM CDT Plan of Treatment Health Maintenance Due Date Last Done Comments COLOGUARD (AGES 45-75) - COLON CA SCREENING 1960 COLON MONITORING 1960 COLONOSCOPY - COLON CA SCREENING 1960 CT COLONOGRAPHY - COLON CA SCREENING 1960 Colorectal Cancer Screening 1960 FIT - COLON CA SCREENING 1960 FLEX SIG - COLON CA SCREENING 1960 HIV SCREENING 1975 HEPATITIS C SCREENING 04/15/1978 PAP SMEAR 1981 PAP with HPV 1990 LUNG CANCER SCREENING 2010 ZOSTER VACCINE (1 of 2) 2010 PNEUMOCOCCAL VACCINE 50+ (2 of 2 - PCV) 06/01/2015 05/31/2014, 04/18/2013, 03/19/2010 Respiratory Syncytial Virus (RSV) Vaccine Pt: or over 60 yrs (1 - Risk 60-74 years 1-dose series) 2020 MAMMOGRAM 08/05/2022 08/05/2020 DTAP/TDAP/TD VACCINES (5 - Td or Tdap) 10/14/2023 10/13/2013, 10/13/2013, 03/19/2013, Additional history exists COVID-19 VACCINE ( season) 2023 06/06/2020, 05/14/2020 DEPRESSION SCREENING 03/19/2024 MEDICARE AWV CALENDAR YEAR 2024 INFLUENZA VACCINE (Season Ended) 2024 05/07/2022, 01/04/2021, 12/21/2019, Additional history exists SCREENING FOR DIABETES 11/17/2025 3, 10/18/2022, 10/18/2022, Additional history exists HEPATITIS B VACCINE Aged [...] - 145 mmol/L 07/30/2012 1:37 PM CDT [facility] Potassium 4.4 3.5 - 5.1 mmol/L 07/30/2012 1:37 PM CDT [facility] Chloride 102 98 - 107 mmol/L [...] 3m2 07/30/2012 1:37 PM CDT [facility] eGFR by MDRD >60 >60 ml/min/1.7 3m2 07/30/2012 1:37 PM CDT [facility] Alkaline Phosphatase 119 38 - 126 U/L 07/30/2012 1:37 PM CDT [facility] ALT 53 12 - 78 U/L 07/30/2012 1:37 PM CDT [facility] AST 16 5 - 40 U/L 07/30/2012 1:37 PM CDT [facility] Protein Total 7.8 6.4 - 8.2 gm/dL 07/30/2012 1:37 PM CDT [facility] Albumin 4.4 3.4 - 5.0 gm/dL 07/30/2012 1:37 PM CDT [facility] Bilirubin Total 0.4 0.2 - 1.0 mg/dL 07/30/2012 1:37 PM CDT [facility] Blood specimen (specimen) BLOOD SPECIMEN / Unknown 07/30/2012 1:05 PM CDT 07/30/2012 1:15 PM CDT Dorita Gilliam PA-C LAB - CHEMISTRY ORDERABLES Fin al Result [facility] [address] [place] [address] from Last 3 Months or Most Recently Relevant to Health Maintenance Insurance [facility] Address: [facility] [address] [place] [address] AETNA MEDICARE ADV AETNA ANTHEM ANTHEM Advance Directives * FULL RESUSCITATION (Latest Code Status on File) Date Activated Date Inactivated Comments 07/30/2012 6:15 PM 08/01/2012 12:40 PM 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
--- OUTSIDE RECORDS SUMMARY | 2024-09-04 08:25 | XMS_ITS | Encounter Summary ---
Author Organization [facility] Address [address] [place] [address] Phone Care Team Providers Care Security System Administrator Name Role Phone Chago Randolph MD Unavailable Zachary Hurley MD Unavailable Betzaida Subramanian NP Unavailable [phone] Naveed Fernandez MD Primary Care Provider Yony Barker MD Unavailable Osvaldo Feldman MD Unavailable [phone] Aminah Cheung OD Unavailable Jay Marc MD Unavailable Flori Sotelo Unavailable Kostas Lr MD Unavailable Jay Marc MD Unavailable [phone] Encounter Details Date Type Department Care Team (Late st Contact Info) Description 10/25/2021 Orders Only [facility] [address] [place] [address] Naveed Fernandez MD [address] [place] [address] Social History Tobacco Use Types Packs/Day Years Used Date Smoking Tobacco: Heavy Smoker Cigarettes 1 47.5 Started: 03/19/1977 Smokeless Tobacco: [...] file 01/30/2020 How often do you attend evangelical or latter day serv ices? Never 01/30/2020 Do you belong to any clubs o r organizations such as evangelical groups, unions, fraternal or athletic groups, or [...] on file Legal Sex Female 1:21 PM PUMP OILER Gender Identity Female 05/05/2022 8:09 AM PUMP OILER Sexual Orientation Straight 11/04/2018 1: 20 PM [...] documented as of this encounter Care Teams Security System Administrator Relationship Specialty Start Date End Date Naveed Fernandez MD [address] [facility] [address] [place] [address] PCP - General Internal Medicine 10/14/21 [place] [address] [facility] [address] [place] [address] Consulting Physician Endocrinology Diabetes & Metabolism 01/21/19 [place] [address] [facility] [address] [place] [address] Referring Physician Psychiatry 01/21/19 Betzaida Subramanian, [place] [address] [facility] [address] [address] [place] [facility] [address] [place] [address] Nurse Practitioner Obstetrics and Gynecology 01/04/21 04/20/24 Yony Barker MD [address] [facility] [address] [place] [address] Referring Physician Pain Management 06/16/22 10/25/22 [place] [address] [facility] [address] [place] [address] Consulting Physician Pain Management 09/25/22 Aminah Cheung OD [address] [place] [address] Consulting Physician Optometry 01/18/23 Jay Marc MD [address] [place] [address] Surgeon Orthopedic Surgery 04/20/23 04/20/24 Flori Sotelo PA [address] [place] [address] [id number] Physician Director Learning And Development Pulmonary Disease 01/26/24 Kostas Lr MD [address] [place], [place] [id number] Consulting Physician Cardiology 02/22/24 Jay Marc MD [address] [place] [address] Surgeon Orthopedic Surgery 04/21/24 documented as of this encounter
--- OUTSIDE RECORDS SUMMARY | 2024-09-04 08:25 | XMS_ITS | Encounter Summary ---
Author Organization [facility] Address [address] [place] [address] Care Team Providers Care Rn Medication Name Role Phone Naveed Fernandez MD Primary Care Provider Unavail able Encounter Details Date Type Department Care Team (Late st Contact Info) Description 09/29/2003 Inpatient Historical HIS PATIENT IN A BED Jarad Neal MD NO ADDRESS ON FILE Franco Caraballo MD [address] [place] [address] ABDOMINAL PAIN UNSPEC SITE (Primary Dx) Social History Tobacco Use Types Packs/Day Years Used Date Smoking Tobacco: Never Assessed Comments Unknown Sex and Gender Information Value Date Recorded Sex Assigned at Female 01/14/2024 8:12 PM CDT Legal Sex Female 4:52 AM LAB INTERN Gender Identity Female 01/14/2024 8:12 PM CDT Sexual Orientation Choose not to disclose 2023 8:12 PM CDT documented as of this encounter Plan of Treatment Not on file documented as of this encounter Visit Diagnoses Diagnosis Abdominal pain, unspecified site- Primary documented in this encounter Additional Health Concerns Infection Onset Date Last Indicated Resolved Time R/O Respiratory 02/10/2024 02/10/2024 02/10/2024 8 :05 PM LAB INTERN R/O Respiratory 03/31/2024 03/31/2024 03/31/2024 5 :16 PM LAB INTERN COVID-19 03/31/2024 03/31/2024 04/20/2024 1:16 AM LAB INTERN R/O C. diff 04/01/2024 04/01/2024 04/02/2024 3:00 AM LAB INTERN documented as of this encounter Care Teams Rn Medication Relationship Specialty Start Date End Date Naveed Fernandez MD PCP - General Internal Medicine 04/21/23 Flori Mcdonald Nurse Practitioner Pulmonology 04/06/23 documented as of this encounter
--- OUTSIDE RECORDS SUMMARY | 2024-09-04 08:25 | XMS_ITS | Encounter Summary ---
Author Organization [facility] Address [address] [place] [address] Care Team Providers Care Table Cut Off Saw Operator Name Role Phone Chago Randolph MD Unavailable Christelle Huertas DO Primary Care Provider [phone] Zachary Hurley MD Unavailable Betzaida Subramanian NP Unavailable [phone] Naveed Fernandez MD Primary Care Provider Yony Barker MD Unavailable [phone] Osvaldo Feldman MD Unavailable Aminah Cheung OD Unavailable Jay Marc MD Unavailable Flori Sotelo Unavailable Kostas Lr MD Unavailable Jay Marc MD Unavailable Reason for Visit * Reason Onset Date Comments Scheduling Appointments 08/04/2020 Confirmi ng mammogram appt- no answer Encounter Details Date Type Department Care Team (Late st Contact Info) Description 08/04/2020 Telephone [facility] [address] [place] [id number] [address] Blank RT Scheduling Appointments (Confirming mammogram [...] file 01/30/2020 How often do you attend gnosticist or mormon serv ices? Never 01/30/2020 Do you belong to any clubs o r organizations such as gnosticist groups, unions, fraternal or athletic groups, or [...] on file Legal Sex Female 1:21 PM CUSHION BUILDER Gender Identity Female 05/05/2022 8:09 AM CUSHION BUILDER Sexual Orientation Straight 11/04/2018 1: 20 PM [...] documented as of this encounter Care Teams Table Cut Off Saw Operator Relationship Specialty Start Date End Date Christelle HuertasDO [address] [facility] [address] [place] [address] PCP - General Family Medicine 01/21/19 09/11/21 Naveed Fernandez MD [address] [facility] [address] [place] [address] PCP - General Internal Medicine 10/14/21 [place] [address] [facility] [address] [place] [address] Consulting Physician Endocrinology Diabetes & Metabolism 01/21/19 [place] [address] [facility] [address] [place] [address] Referring Physician Psychiatry 01/21/19 Betzaida Subramanian NP [address] [facility] [address] JESÚS Hu [facility] [address] [place] [address] Nurse Practitioner Obstetrics and Gynecology 01/04/21 04/20/24 Yony Barker MD [address] [facility] [address] [place] [address] Referring Physician Pain Management 06/16/22 10/25/22 [place] [address] [place] [address] Consulting Physician Pain Management 09/25/22 Aminah Cheung OD [address] [place] [address] Consulting Physician Optometry 01/18/23 Jay Marc MD [address] [place] [address] Surgeon Orthopedic Surgery 04/20/23 04/20/24 Flori Sotelo PA [address] [place] [address] [id number] Physician Plating Stripper Pulmonary Disease 01/26/24 Kostas Lr MD [address] [place], [place] [id number] Consulting Physician Cardiology 02/22/24 Jay Marc MD [address] [place] [address] Surgeon Orthopedic Surgery 04/21/24 documented as of this encounter
--- OUTSIDE RECORDS SUMMARY | 2024-09-04 08:25 | XMS_ITS | Encounter Summary ---
Author Organization [facility] Healthcare Address [facility] [place] [address] Care Team Providers Care Cotton Baler Name Role Phone Cahgo Randolph MD Unavailable Zachary Hurley MD Unavailable Naveed Fernandez MD Primary Care Provider [phone] Osvaldo Feldman MD Unavailable Aminah Cheung OD Unavailable [phone] Flori Sotelo Unavailable [phone] Kostas Lr MD Unavailable [phone] Jay Marc MD Unavailable Encounter Details Date Type Department Care Team (Late st Contact Info) Description 07/18/2024 Results Follow-Up [facility] [address] [place] [address] Naveed Fernandez MD [address] [place] [address] Urinalysis reflex to microscopic and [...] file 01/30/2020 How often do you attend rastafarian or temple serv ices? Never 01/30/2020 Do you belong to any clubs o r organizations such as rastafarian groups, unions, fraternal or athletic groups, or [...] on file Legal Sex Female 1:21 PM INCOME TAX ADVISOR Gender Identity Female 05/05/2022 8:09 AM INCOME TAX ADVISOR Sexual Orientation Straight 11/04/2018 1: 20 PM CDT Occupation Industry Job Start Date Job End Date disabled Not on file Not on file Not on file documented as of this encounter Plan of Treatment Not on file documented as of this encounter Visit Diagnoses Not on filedocumented in this encounter Care Teams Cotton Baler Relationship Specialty Start Date End Date Naveed Fernandez MD [address] [email or web address] [address] [place] [address] PCP - General Internal Medicine 10/14/21 [place] [address] [address] [facility] [address] [place] [address] Consulting Physician Endocrinology Diabetes & Metabolism 01/21/19 [place] [address] [address] [facility] [address] [place] [address] Referring Physician Psychiatry 01/21/19 [place] [address] [facility] [address] [place] [address] Consulting Physician Pain Management 09/25/22 Aminah Cheung OD [address] [place] [address] Consulting Physician Optometry 01/18/23 Flori Sotelo PA [address] [address] Physician Classroom Aide Pulmonary Disease 01/26/24 Kostas Lr MD [address] [facility] [address] [place] [address] Consulting Physician Cardiology 02/22/24 Jay Marc MD [address] [place] [address] Surgeon Orthopedic Surgery 04/21/24 documented as of this encounter
--- OUTSIDE RECORDS SUMMARY | 2024-09-04 08:25 | XMS_ITS | Encounter Summary ---
Author Organization [facility] Address [address] [place] [address] Care Team Providers Care Network Admin Name Role Phone Naveed Fernandez MD Primary Care Provider Unavail able Encounter Details Date Type Department Care Team (Latest Contact Info) Description 02/19/2004 Outpatient Historical [facility] [place] [address] [place] [address] INTRINS URETHRL SPHINC DEFICIENCY (Primary Dx) Social History Tobacco Use Types Packs/Day Years Used Date Smoking Tobacco: Never Assessed Comments Unknown Sex and Gender Information Value Date Recorded Sex Assigned at Female 01/14/2024 8:12 PM CDT Legal Sex Female 4:52 AM MEN'S LEATHER DRESS BELT MAKER Gender Identity Female 01/14/2024 8:12 PM [...] Respiratory 02/10/2024 02/10/2024 02/10/2024 8 :05 PM MEN'S LEATHER DRESS BELT MAKER R/O Respiratory 03/31/2024 03/31/2024 03/31/2024 5 :16 PM MEN'S LEATHER DRESS BELT MAKER COVID-19 03/31/2024 03/31/2024 04/20/2024 1:16 AM MEN'S LEATHER DRESS BELT MAKER R/O C. diff 04/01/2024 04/01/2024 04/02/2024 3:00 AM MEN'S LEATHER DRESS BELT MAKER documented as of this encounter Care Teams Network Admin Relationship Specialty Start Date End Date Naveed Fernandez MD PCP - General Internal Medicine 04/21/23 Flori Mcdonald Nurse Practitioner Pulmonology 04/06/23 documented as of this encounter
--- OUTSIDE RECORDS SUMMARY | 2024-09-04 08:25 | XMS_ITS | Encounter Summary ---
Author Organization [facility] Address [address] [place] [address] Care Team Providers Care Customer Support Analyst Name Role Phone Naveed Fernandez MD Primary Care Provider Unavail able Encounter Details Date Type Department Care Team (Late st Contact Info) Description 09/30/2003 Outpatient [facility] Division of Neurology [address] [address] (Excluded Provider) [place] [address] [facility] [address] [place] [address] Social History Tobacco Use Types Packs/Day Years Used Date Smoking Tobacco: Never Assessed Comments Unknown Sex and Gender Information Value Date Recorded Sex Assigned at Female 01/14/2024 8:12 PM CDT Legal Sex Female 4:52 AM TEACHER SPECIALIST Gender Identity Female 01/14/2024 8:12 PM CDT Sexual Orientation Choose not to disclose 2023 8:12 PM CDT documented as of this encounter Plan of Treatment Not on file documented as of this encounter Visit Diagnoses Not on filedocumented in this encounter Additional Health Concerns Infection Onset Date Last Indicated Resolved Time R/O Respiratory 02/10/2024 02/10/2024 02/10/2024 8 :05 PM TEACHER SPECIALIST R/O Respiratory 03/31/2024 03/31/2024 03/31/2024 5 :16 PM TEACHER SPECIALIST COVID-19 03/31/2024 03/31/2024 04/20/2024 1:16 AM TEACHER SPECIALIST R/O C. diff 04/01/2024 04/01/2024 04/02/2024 3:00 AM TEACHER SPECIALIST documented as of this encounter Care Teams Customer Support Analyst Relationship Specialty Start Date End Date Naveed Fernandez MD PCP - General Internal Medicine 04/21/23 Flori Mcdonald Nurse Practitioner Pulmonology 04/06/23 documented as of this encounter
--- OUTSIDE RECORDS SUMMARY | 2024-09-04 08:25 | XMS_ITS | Encounter Summary ---
Author Organization [facility] Healthcare Address [facility] [place] [address] Care Team Providers Care Developer Trading Systems Name Role Phone Chago Randolph MD Unavailable Zachary Hurley MD Unavailable [phone] Naveed Fernandez MD Primary Care Provider Osvaldo Feldman MD Unavailable Aminah Cheung OD Unavailable [phone] Flori Sotelo Unavailable [phone] Kostas Lr MD Unavailable Jay Marc MD Unavailable [phone] Encounter Details Date Type Department Care Team (Late st Contact Info) Description 07/15/2024 Results Follow-Up [facility] [address] [place] [address] Naveed Fernandez MD [address] [place] [address] SC[facility] - LABS Social History Tobacco Use [...] How often do you attend advent or religion serv ices? Never 01/30/2020 Do you belong [...] on file Legal Sex Female 1:21 PM CUSTOMS DIRECTOR Gender Identity Female 05/05/2022 8:09 AM CUSTOMS DIRECTOR Sexual Orientation Straight 11/04/2018 1: 20 PM CDT Occupation Industry Job Start Date Job End Date disabled Not on file Not on file Not on file documented as of this encounter Plan of Treatment Not on file documented as of this encounter Visit Diagnoses Not on filedocumented in this encounter Care Teams Developer Trading Systems Relationship Specialty Start Date End Date Naveed Fernandez MD [address] [facility] [address] [place] [address] PCP - General Internal Medicine 10/14/21 [place] [address] [address] [facility] [address] [place] [address] Consulting Physician Endocrinology Diabetes & Metabolism 01/21/19 [place] [address] [address] [facility] [address] [place] [address] Referring Physician Psychiatry 01/21/19 [place] [address] [facility] [address] [place] [address] Consulting Physician Pain Management 09/25/22 Aminah Cheung OD [address] [place] [place] [address] Consulting Physician Optometry 01/18/23 Flori Sotelo PA [address] [place] [address] Physician Sergeant Missile Crewman Pulmonary Disease 01/26/24 Kostas rL MD [address] [facility] [address] [place] [address] Consulting Physician Cardiology 02/22/24 Jay Marc MD [address] [place] [address] Surgeon Orthopedic Surgery 04/21/24 documented as of this encounter
--- OUTSIDE RECORDS SUMMARY | 2024-09-04 08:25 | XMS_ITS | Encounter Summary ---
Author Organization [facility] Address [address] [place] [address] Care Team Providers Care Resident Advisor Name Role Phone Naveed Fernandez MD Primary Care Provider Unavail able Encounter Details Date Type Department Care Team (Late st Contact Info) Description 09/16/2003 Inpatient Historical HIS PATIENT IN A BED Franco Caraballo MD [address] [place] [address] NAUSEA WITH VOMITING (Primary Dx) Social History Tobacco Use Types Packs/Day Years Used Date Smoking Tobacco: Never Assessed Comments Unknown Sex and Gender Information Value Date Recorded Sex Assigned at Female 01/14/2024 8:12 PM CDT Legal Sex Female 4:52 AM VISITOR SERVICES REPRESENTATIVE Gender Identity Female 01/14/2024 8:12 PM CDT Sexual Orientation Choose not to disclose 2023 8:12 PM CDT documented as of this encounter Plan of Treatment Not on file documented as of this encounter Visit Diagnoses Diagnosis Nausea with vomiting- Primary documented in this encounter Additional Health Concerns Infection Onset Date Last Indicated Resolved Time R/O Respiratory 02/10/2024 02/10/2024 02/10/2024 8 :05 PM VISITOR SERVICES REPRESENTATIVE R/O Respiratory 03/31/2024 03/31/2024 03/31/2024 5 :16 PM VISITOR SERVICES REPRESENTATIVE COVID-19 03/31/2024 03/31/2024 04/20/2024 1:16 AM VISITOR SERVICES REPRESENTATIVE R/O C. diff 04/01/2024 04/01/2024 04/02/2024 3:00 AM VISITOR SERVICES REPRESENTATIVE documented as of this encounter Care Teams Resident Advisor Relationship Specialty Start Date End Date Naveed Fernandez MD PCP - General Internal Medicine 04/21/23 Flori Mcdonald Nurse Practitioner Pulmonology 04/06/23 documented as of this encounter
--- OUTSIDE RECORDS SUMMARY | 2024-09-04 08:25 | XMS_ITS | Encounter Summary ---
Author Organization [facility] Address [address] [place] [address] Care Team Providers Care Shipping Processor Name Role Phone Naveed Fernandez MD Primary Care Provider Unavail able Encounter Details Date Type Department Care Team (Late st Contact Info) Description 09/30/2003 Outpatient [facility] [address] [email or web address] [address] [email or web address] [address] David Young MD [email or web address] [address] Social History Tobacco Use Types Packs/Day Years Used Date Smoking Tobacco: Never Assessed Comments Unknown Sex and Gender Information Value Date Recorded Sex Assigned at Female 01/14/2024 8:12 PM CDT Legal Sex Female 4:52 AM RN PEDIATRIC Gender Identity Female 01/14/2024 8:12 PM CDT Sexual Orientation Choose not to disclose 2023 8:12 PM CDT documented as of this encounter Plan of Treatment Not on file documented as of this encounter Visit Diagnoses Not on filedocumented in this encounter Additional Health Concerns Infection Onset Date Last Indicated Resolved Time R/O Respiratory 02/10/2024 02/10/2024 02/10/2024 8 :05 PM RN PEDIATRIC R/O Respiratory 03/31/2024 03/31/2024 03/31/2024 5 :16 PM RN PEDIATRIC COVID-19 03/31/2024 03/31/2024 04/20/2024 1:16 AM RN PEDIATRIC R/O C. diff 04/01/2024 04/01/2024 04/02/2024 3:00 AM RN PEDIATRIC documented as of this encounter Care Teams Shipping Processor Relationship Specialty Start Date End Date Naveed Fernandez MD PCP - General Internal Medicine 04/21/23 Flori Mcdonald Nurse Practitioner Pulmonology 04/06/23 documented as of this encounter
--- OUTSIDE RECORDS SUMMARY | 2024-09-04 08:25 | XMS_ITS | Encounter Summary ---
Author Organization [facility] Address [address] [place] [address] Care Team Providers Care Back Sewer Name Role Phone Naveed Fernandez MD Primary Care Provider Unavail able Encounter Details Date Type Department Care Team (Late st Contact Info) Description 09/09/2003 Inpatient Historical HIS PATIENT IN A BED Franco Caraballo MD [address] [place] [address] FEMALE GENITAL SYMPTOMS NOS (Primary Dx) Social History Tobacco Use Types Packs/Day Years Used Date Smoking Tobacco: Never Assessed Comments Unknown Sex and Gender Information Value Date Recorded Sex Assigned at Female 01/14/2024 8:12 PM CDT Legal Sex Female 4:52 AM MENTAL HYGIENIST Gender Identity Female 01/14/2024 8:12 PM CDT [...] Respiratory 02/10/2024 02/10/2024 02/10/2024 8 :05 PM MENTAL HYGIENIST R/O Respiratory 03/31/2024 03/31/2024 03/31/2024 5 :16 PM MENTAL HYGIENIST COVID-19 03/31/2024 03/31/2024 04/20/2024 1:16 AM MENTAL HYGIENIST R/O C. diff 04/01/2024 04/01/2024 04/02/2024 3:00 AM MENTAL HYGIENIST documented as of this encounter Care Teams Back Sewer Relationship Specialty Start Date End Date Naveed Fernandez MD PCP - General Internal Medicine 04/21/23 Flori Mcdonald Nurse Practitioner Pulmonology 04/06/23 documented as of this encounter
--- OUTSIDE RECORDS SUMMARY | 2024-09-04 08:26 | XMS_ITS | Referral Summary ---
Author Organization [facility] Address [address] [place] [phone] Care Team Providers Care Human Resources Trainer Name Role Phone Sadie Randolph MD Unavailable Zachary Hurley MD Unavailable Stephanie Cole MD Primary Care Provider [phone] Osvaldo Feldman MD Unavailable [phone] Aminah Cheung OD Unavailable [phone] Flori Sotelo Unavailable [phone] Kostas Lr MD Unavailable Jay Marc MD Unavailable Encounters Date Type Department Care Team Description 09/01/2024 Results Follow-Up [facility] [address] [place] [address] Stephanie Cole MD T3, free, T4, free, TSH 09/01/2024 1:15 PM CDT Lab [address] [address] Congenital hypothyroidism 08/22/2024 Orders Only [facility] [address] [facility] [address] [place] [address] Lopez Fraire NP Candidal intertrigo (Primary Dx) 08/22/2024 Telephone [facility] [address] [place] [address] Lopez Fraire NP 08/19/2024 12:30 PM CDT Office Visit [facility] [address] [place] [address] Lopez Fraire NP Candidal intertrigo (Primary Dx) 08/19/2024 Telephone [facility] [address] [place] [address] Stephanie Cole MD 08/06/2024 [facility] [address] [place] [address] Stephanie Cole MD DIABETES EYE EXAM 08/04/2024 Telephone [facility] [address] [place] [address] Stephanie Cole MD 07/31/2024 Telephone [facility] [address] [place] [address] Stephanie Cole MD Wegovy 07/30/2024 3:30 PM CDT Office Visit [facility] [address] [place] [address] Stephanie Cole MD Type 2 diabetes mellitus [...] Chronic obstructive pulmonary disease, unspecified COPD type (HCC); Moderate obstructive sleep apnea; Congenital hypothyroidism 07/23/2024 Results Follow-Up [facility] [address] [place] [address] Stephanie Cole MD Urinalysis reflex to microscopic, TSH, T4, free, Additional followed-up results: 4 07/22/2024 10:10 AM CDT Lab [address] [address] Hematuria, unspecified type; Adult hypothyroidism; Type 2 diabetes mellitus with hyperglycemia, without long-term current use of insulin (HCC) 07/18/2024 Telephone [facility] [address] [facility] [address] [place] [address] Stephanie Cole MD Food is very salty, pt unsure why 07/18/2024 Results Follow-Up [facility] [address] [facility] [address] [place] [address] Stephanie Cole MD Urinalysis reflex to microscopic and culture Urine, clean voided 07/15/2024 Telephone [facility] [address] [facility] [address] [place] [address] Stephanie Cole MD 07/15/2024 Telephone [facility] [address] [facility] [address] [place] [address] Stephanie Cole MD 07/15/2024 Results Follow-Up [facility] [address] [facility] [address] [place] [address] Stephanie Cole MD SCAN - LABS 07/14/2024 Orders Only [facility] Health Information Management [address] [place] [address] Stephanie Cole MD 07/14/2024 Telephone [facility] [address] [facility] [address] [place] [address] Stephanie Cole MD 06/27/2024 10:00 AM CDT - 06/27/2024 11:05 AM CDT Surgery [facility] Cardiac Catheterization [address] [place] [phone] aRn García MD LEFT HEART CATHETERIZATION WITH CORONARY ANGIOGRAPHY AND WITH OR WITHOUT LEFT VENTRICULOGRAM [id number] 06/27/2024 8:52 AM CDT - 06/27/2024 3:09 PM CDT Hospital Encounter [facility] Cardiac Catheterization 1 [place] [address] Ran García MD Other chest pain Discharge Disposition: Discharge to home or self care 06/26/2024 Telephone [facility] [address] [facility] [address] [place] [address] Stephanie Cole MD 06/26/2024 Telephone [facility] [employer] [facility] at [address] [phone] Stanley Reaves MA 06/26/2024 11:40 AM CDT - 06/26/2024 12:49 PM CDT Emergency [facility] Emergency Department 1 [place] [address] Discharge Disposition: Left without being seen 06/24/2024 Results Follow-Up [facility] [address] [facility] [address] [place] [phone] Stephanie Cole MD T4, free, TSH, Vitamin D 25 hydroxy, Additional followed-up results: 7 06/24/2024 9:55 AM CDT Lab [address] [address] Adult hypothyroidism; Vitamin D deficiency; Type 2 diabetes mellitus with hyperglycemia, without long-term current use of insulin (HCC); Elevated liver enzymes; Medication monitoring encounter 06/24/2024 9:50 AM CDT Lab [address] [address] Other chest pain 06/24/2024 Orders Only [facility] at [address] [address] Ran García MD Other chest pain (Primary Dx) 06/24/2024 9:00 AM CDT Office Visit [facility] at [address] [address] Bonita Cotto NP Hyperlipidemia associated with type 2 diabetes mellitus (HCC) (Primary Dx); Chest pain, unspecified type; Other chest pain; Hypertension associated with type 2 diabetes mellitus (HCC) 06/23/2024 Telephone [facility] [address] [place] [address] Stephanie Cole MD 06/23/2024 2:30 PM CDT Office Visit [facility] [address] [place] [address] Stephanie Cole MD Chronic midline low back pain without sciatica (Primary Dx); Chest pain, unspecified type; Other chest pain; Hyperlipidemia associated with type 2 diabetes mellitus (HCC); Tobacco use disorder 06/09/2024 Telephone [facility] [address] [place] [phone] Thea Byrd RN 06/04/2024 Telephone [facility] [address] [place] [address] Stephanie Cole MD from Last 3 Months Allergies Active Allergy Reactions Criticality Noted Date Comments [place] Other (See comments) Low severe shakes Other Hives Medium 11/18/2017 Powdered gloves Medications calcium carb and citrate-vitD3 600 mg-12.5 mcg (500 unit) tablet extended release Take by mouth Active blood-glucose meter miscIndications:T ype 2 diabetes mellitus with hyperglycemia, without long-term current use of insulin ([facility]) Use to check blood glucose once daily. 1 each 024 Active albuterol HFA (Ventolin HFA) 90 mcg/actuation inhalerIndication s:Chronic Obstructive Pulmonary Disease Inhale 2 puffs every 4 (four) hours as needed for wheezing or shortness of breath 024 2024 Active budesonide-glycop yr-formoterol (Breztri Aerosphere) 160-9-4.8 mcg/actuation inhaler Inhale 2 puffs 2 (two) times a day Active lancets (OneTouch Delica Plus Lancet) 30 gauge miscIndications:T ype 2 diabetes mellitus with hyperglycemia, without long-term current use of insulin ([facility]) USE 1 TO CHECK GLUCOSE ONCE DAILY 100 each Active QUEtiapine (SEROquel) 300 mg tablet Take 2 tablets (600 mg total) by mouth nightly Serial dose increases starting 11/27/2023. 024 Active cyclobenzaprine (FLEXERIL) 10 mg tablet Take 1 tablet (10 mg total) by mouth 3 (three) times a day as needed (Fibromyalgia ) Active LORazepam (ATIVAN) 1 mg tablet Take 1 tablet (1 mg total) by mouth 3 (three) times a day as needed for anxiety Active blood glucose diagnostic (glucose blood) stripIndications: Type 2 diabetes mellitus with hyperglycemia, without long-term current use of insulin ([facility]) Use to test blood glucose once daily. 100 each 1 025 2025 Active losartan (COZAAR) 50 mg tabletIndications :HTN (hypertension), benign Take 1 tablet (50 mg total) by mouth 2 (two) times a day 180 tablet Active ergocalciferol (VITAMIN D) 50,000 unit capsuleIndication s:Vitamin D deficiency Take 1 capsule (50,000 Units total) by mouth once a week 12 capsule 1 025 Active famciclovir (FAMVIR) 250 mg tabletIndications :Recurrent herpes simplex Take 1 tablet by mouth twice daily 180 tablet 1 025 Active HYDROcodone-aceta minophen (NORCO) 5-325 mg per tablet Take 1 tablet by mouth every 4 (four) hours as needed for pain 025 Active brexpiprazole (Rexulti) 2 mg tablet Take 1 tablet (2 mg total) by mouth daily 024 Active desvenlafaxine ER (PRISTIQ) 100 mg 24 hr tablet Take 1 tablet (100 mg total) by mouth daily 025 Active atorvastatin (LIPITOR) 40 mg tabletIndications :Hyperlipidemia associated with type 2 diabetes mellitus (HCC) Take 1 tablet by mouth once daily 90 tablet 1 025 Active metFORMIN (GLUCOPHAGE) 500 mg tabletIndications :Type 2 diabetes mellitus with hyperglycemia, without long-term current use of insulin (HCC) TAKE 1 TABLET BY MOUTH TWICE DAILY WITH MEALS 180 tablet 1 025 Active propranoloL (INDERAL) 60 mg tabletIndications :HTN (hypertension), benign TAKE 1 TABLET TWICE DAILY 180 tablet 025 Active polyethylene glycol (MIRALAX) 17 gram packetIndications :constipation Take 1 packet (17 g total) by mouth daily 025 Active UNABLE TO FIND Apply 1 each topically 2 (two) times a day Med Name: Aurelio Simpson Oil (Hayes butter, peppermint oil, cayenne pepper, cannabis). 025 Active gabapentin (NEURONTIN) 300 mg capsuleIndication s:Chronic midline thoracic back pain Take 2 capsules (600 mg total) by mouth 3 (three) times a day 540 capsule 1 025 Active semaglutide (OZEMPIC) 0.25 mg or 0.5 mg(2 mg/1.5 mL) pen injector injection Inject 0.25 mg under the skin every 7 days 3 mL 025 Active nystatin creamIndications: Candidal intertrigo Apply topically 2 (two) times a day 30 g 1 025 2025 Active levothyroxine (SYNTHROID) 150 mcg tabletIndications :Congenital hypothyroidism Take 1 tablet (150 mcg total) by mouth daily 30 tablet 1 025 Active gabapentin (NEURONTIN) 300 mg capsuleIndication s:Chronic midline thoracic back pain Take 2 capsules (600 mg total) by mouth 3 (three) times a day 025 2024 Discontinued levothyroxine (SYNTHROID) 137 mcg tabletIndications :Congenital hypothyroidism Take 1 tablet (137 mcg total) by mouth daily 45 tablet 025 2024 Discontinued Wegovy 0.25 mg/0.5 mL auto-injectorIndi cations:Weight Loss Management for Obese Patient (BMI >= 30),type 2 diabetes mellitus INJECT 0.25 MG UNDER THE SKIN EVERY 7 DAYS 4 mL 5 025 2024 Discontinued fluconazole (Diflucan) 200 mg tabletIndications :Candidal intertrigo Take 2 tablets (400 mg total) by mouth daily for 5 days 10 tablet 025 2024 Discontinued nystatin powderIndications :Candidal intertrigo Apply topically 3 (three) times a day for 7 days Use for two days after rash has resolved. 60 g 3 025 2024 Discontinued(A lternate therapy) fluconazole (Diflucan) 200 mg tabletIndications :Candidal intertrigo Take 1 tablet (200 mg total) by mouth daily for 5 days 5 tablet 025 2024 nystatin powderIndications :Candidal intertrigo Apply topically 3 (three) times a day for 7 days Use for two days after rash has resolved. 025 2024 Active Problems Problem Noted Date Diagnosed Date Candidal intertrigo 08/19/2024 Assessment & Plan (08/19/2024 1:02 PM CDT): Acute, unstable Current meds: corn starch Today's Plan: Meds: Nystatin, Diflucan; patient requesting powder rather than cream Reference: Intertrigo - UpToDate Recs: shower daily, wash effected areas w/ fragrance free soap, avoid tight clothing and extreme heat as this can cause exacerbation of symptoms OTC recs: antihistamine (Zyrtec, Kamini, Claritin); would avoid Benadryl as it can cause fatigue Considerable consults: Dermatology Goal: decreased pruritus, improvement of rash Other chest pain 05/17/2024 Assessment & Plan [...] 04/21/2024 Assessment & Plan (04/21/2024 8:29 PM MANAGER WIND): See hospital details above, testing and labs [...] pain. She is in pain management at [facility]. Recommend continuing cyclobenzaprine 10 mg 3 times daily as needed, gabapentin 600 mg 2-3 times daily (sometimes skips the middle of the day dose), and hydrocodone 5-325 mg Q 4 hours as needed. A recent MRI did not show any major pathology that explains her pain. Hopefully things will improve as time he lapses after her surgery. Assessment & Plan (04/21/2024 8:30 PM MANAGER WIND): Chronic, uncontrolled. See recent hospitalization for thoracic fusion as outlined above. Continue pain medicine and therapy as prescribed by Neurosurgery. Assessment & Plan (03/16/2024 6:36 PM MANAGER WIND): New symptom as of about two months ago, unremitting. She had evaluation in her spine surgeon's office and has either an arachnoid cyst or possibly a herniated disc in the midthoracic spine. Surgery is planned. She has already been cleared by Cardiology. Review of the record indicates recent elevation of WBC when she was at the [facility] ER with a bad headache. She eventually left without being seen due to the long wait. She denies running a fever. Other pertinent recent history includes an episode of pneumonia treated by Pulmonary Medicine at [facility]. Exam today is unremarkable. She will [...] 138/82 Assessment & Plan (04/21/2024 8:21 PM MANAGER WIND): Chronic, at goal. BP stable in office today on current therapy. No acute findings on exam. BMP from 2 weeks ago unremarkable except for protein and liver enzymes. We will repeat today. Continue losartan and propranolol as prescribed. low salt diet. Assessment & Plan (03/07/2024 4:13 PM MANAGER WIND): Chronic, present for more than two years, currently controlled on losartan 50 mg twice daily and propranolol 20 mg every 12 hours. She denies chest pain or pressure. She has been cleared by Cardiology to have her thoracic spine surgery. Assessment & Plan (01/25/2024 1:45 PM MANAGER WIND): Chronic, present for more than two years, [...] 10/18/2022 Assessment & Plan (04/26/2022 4:37 PM MANAGER WIND): Blood pressure is in a good range [...] parameters Assessment & Plan (01/21/2019 11:39 AM MANAGER WIND): Clinically improved. Cont current meds. Hyperlipidemia associated [...] 05/19/2024 Assessment & Plan (01/25/2024 1:44 PM MANAGER WIND): Chronic, present for more than two years, status update needed. We ordered labs to be done at her convenience sometime next week. Follow up in six months. Assessment & Plan (07/12/2023 1:25 PM CDT): She is tolerating generic Lipitor. We will monitor with periodic labs. Assessment & Plan (04/12/2023 3:20 PM MANAGER WIND): She takes generic Lipitor, tolerating well. We [...] 10/18/2022 Assessment & Plan (04/26/2022 4:36 PM MANAGER WIND): She is on moderate dose generic Lipitor, [...] continued 7. 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 Assessment & Plan (04/26/2022 4:46 PM MANAGER WIND): She is now on BiPAP. The mask [...] WRITTEN ON 08/17/2020 2:19 PM BY ALIYA HUERTAS, Recent labs were all within normal range with exception of her TSH which was slightly elevated. She was seen by the nurse practitioner at that time who increased her levothyroxine to 150 mcg daily. Patient does have a inspector packager, advised patient to follow-up with inspector packager. She is taking a medication, Cytomel, which has a common side effect of diaphoresis. Encouraged patient to speak to her inspector packager about possibly discontinuing this medication. Class 3 [...] effects. Assessment & Plan (04/21/2024 8:22 PM MANAGER WIND): Chronic, uncontrolled. Down 9 lb in the last 6 weeks, BMI at 41.5. Exercise is limited due to chronic pain issues, she does not wish to discuss pharmacological treatment at this time. Encouraged continued heart healthy diet and exercise and portion control. Assessment & Plan (01/25/2024 1:41 PM MANAGER WIND): Chronic, present for many years, uncontrolled although there has been a slight decrease in her weight recently. We encouraged continued attention to her diet, and additional weight loss. Assessment & Plan (04/12/2023 3:21 PM MANAGER WIND): She put on quite a bit of weight due to inactivity. 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 We encouraged her efforts. Assessment & Plan (11/12/2022 3:16 PM CDT): We encouraged attention to her diet and significant weight loss. She is limited in activity level due to chronic pain. Assessment & Plan (05/11/2022 10:13 AM MANAGER WIND): She is on Ozempic for diabetes. This [...] recommended. Assessment & Plan (03/23/2021 2:09 PM MANAGER WIND): Weight reduction, daily exercise and dietary modifications recommended when feeling better. Assessment & Plan (03/17/2021 4:13 PM MANAGER WIND): Healthy, low carbohydrate lifestyle and exercise for 150min/week recommended Assessment & Plan (01/04/2021 6:01 PM CDT): Weight reduction, daily exercise and dietary modifications recommended. Assessment & Plan (08/06/2020 1:14 PM CDT): HPI: Condition is not at/near goal of BMI <25 A&P: Healthy, low carbohydrate lifestyle and exercise for 150min/week recommended Substitutions: Recommend tracking everything you put in your mouth on an sophie like [email or web address] or [employer] carries a zero net carb bread [...] in much longer they will become mushy [place] and/or coconut flour instead of regular flour [...] pork rinds For yogurt, try Two Good niuean yogurt Use Pinterest for recipe ideas. Type in low carb... Assessment & Plan (06/10/2020 3:28 PM CDT): Healthy, low carbohydrate lifestyle and exercise for 150min/week recommended Hyperplastic polyp of sigmoid colon 01/01/2020 Overview (01/01/2020): Colonoscopy 04/23/2017 [facility] everywhere Chronic migraine without [...] endocrinology. Assessment & Plan (04/11/2021 2:40 PM MANAGER WIND): Check 25 OH vit D Adjust dose of Ergocalciferol accordingly Assessment & Plan (04/21/2020 4:14 PM MANAGER WIND): Continue Ergocalciferol, 50,000 international units weekly Assessment & Plan (02/05/2019 3:33 PM MANAGER WIND): Check 25 OH vit D Adjust dose [...] requested a referral to diabetes education at [facility] which will be arranged. Assessment & Plan (03/07/2024 4:15 PM MANAGER WIND): Chronic, present for many years, currently controlled with metformin 500 mg twice daily. The criterion for having surgery was a hemoglobin A1c less than 7.5%, and her recent value was 7.3%. She is working hard on her diet. Assessment & Plan (01/26/2024 3:20 PM MANAGER WIND): Chronic, present for about a year (previously [...] 08/16/2021 Assessment & Plan (04/24/2023 10:07 AM MANAGER WIND): She progressed from borderline diabetes to paige [...] covered Assessment & Plan (04/26/2022 4:51 PM MANAGER WIND): She does not check blood sugars at home. She is on Ozempic. She sees Dr. Randolph for follow-up of her endocrine conditions. Lab Results Component Value Date HGBA1C 6.7 02/06/2022 Assessment & Plan (02/06/2022 4:44 PM MANAGER WIND): Hba1c was Lab Results Component Value Date [...] mcg rescue inhaler q.4 hours prn and jfpezhdlmn-cuzjptqnifospd-zsjiwxqjla 160-9-4.8 mcg inhaler twice daily. Assessment & Plan (01/25/2024 1:44 PM MANAGER WIND): Chronic, present for about 10 years, currently treated with albuterol metered- dose inhaler and vcunmurkzb-wftaubbzwpcpjp-lgxftmprpy maintenance inhaler. She also has a nebulizer used as needed. She has a pulmonary nurse practitioner at [facility] who sees her periodically. Continue same. Assessment & Plan (07/12/2023 1:24 PM CDT): She uses an inhaler as needed. She denies cough or shortness of breath. Lungs are clear and oxygen saturation is adequate. Continue same. Assessment & Plan (04/12/2023 3:18 PM MANAGER WIND): Symptoms are controlled with an albuterol inhaler and Symbicort. She managed to quit smoking which is great. We will see her back in three months. Assessment & Plan (04/26/2022 4:34 PM MANAGER WIND): She wheezes occasionally and has an albuterol [...] day. Assessment & Plan (01/25/2024 1:40 PM MANAGER WIND): Chronic, present for decades, currently uncontrolled despite taking tramadol as needed. Mostly she relies on acetaminophen or ibuprofen which he gets dbol-hzp-grtxlkq. She has follow ups with her back [...] excessive pain, but probably overdid it at [place] in the pool the other day and [...] fusion. Surgery will be done by Dr. Curylo. Recent labs are stable except for uncontrolled [...] symptoms Assessment & Plan (04/11/2021 2:40 PM MANAGER WIND): Check TFTs Would recommend to increase LT3 to 5 mcg bid Will send rx after today labs Assessment & Plan (01/04/2021 6:01 PM CDT): Asymptomatic. Stable. Continue current prescription medications. Assessment & Plan (04/21/2020 4:16 PM MANAGER WIND): Continue Levothyroxine and Liothyronine, combination Importance of f taking the medication on an empty stomach, was explained again to the patient Assessment & Plan (12/19/2019 11:48 PM CDT): Continue levothyroxine Assessment & Plan (11/20/2019 2:29 AM CDT): Continue levothyroxine and Cytomel Assessment & Plan (02/05/2019 3:32 PM MANAGER WIND): Will check TSH and free T4 and [...] lacking. Assessment & Plan (01/25/2024 1:46 PM MANAGER WIND): Chronic, present for many years, currently reasonably well controlled on medications prescribed by her psychiatrist, Dr. Hurley, including quetiapine 600 mg at bedtime, lorazepam 1 mg 3 times daily as needed which she takes rarely, and desvenlafaxine 100 mg daily. Continue same and keep followups with psychiatry. Assessment & Plan (04/12/2023 3:21 PM MANAGER WIND): Her mood seems to be pretty stable [...] Barton. Assessment & Plan (05/11/2022 10:13 AM MANAGER WIND): She sees Dr. Hurley and is on [...] feasible. Assessment & Plan (04/21/2024 8:30 PM MANAGER WIND): Spent 5 minutes in discussion of tobacco cessation today and advised of health benefits. Assessment & Plan (07/14/2023 12:55 PM CDT): Unstable, worse. She quit smoking for her back surgery but unfortunately has resumed. We encouraged smoking cessation. Assessment & Plan (04/12/2023 3:21 PM MANAGER WIND): She quit smoking one month ago. I congratulated her on the accomplishment. She does have cravings, but is managing to abstain. Assessment & Plan (10/26/2022 1:58 PM CDT): Insurance would not approve recommended back surgery until she quit smoking and lost some weight. She is working on this but it is hard. Assessment & Plan (04/26/2022 4:50 PM MANAGER WIND): She is still smoking cigarettes and has no plans to quit. We nevertheless did encourage cessation. Assessment & Plan (07/07/2021 2:08 PM CDT): Advised patient to quit smoking. Assessment & Plan (01/04/2021 6:01 PM CDT): Advised patient to quit smoking. Pt declined stating that smoking is the only thing keeping her sane. Assessment & Plan (01/26/2020 8:13 PM MANAGER WIND): Advised patient to quit smoking. Assessment & [...] smoking. Assessment & Plan (01/21/2019 11:40 AM MANAGER WIND): Advised patient to quit. She states she's not ready to quit. Acute non intractable tension-type headache Resolved Problems Problem Noted Date Diagnosed Date Resolved Date Candidal skin infection 08/19/2024 06/0 05/2024 Assessment & Plan (08/19/2024 12:56 PM CDT): Depression with anxiety 04/30/202404/19 Morbid obesity with BMI of 40.0-44.9, adult 03/27/2024 04/21/2024 Community acquired pneumonia of right upper lobe of lung 01/18/2024 03/07/2024 Assessment & Plan (01/26/2024 2:52 PM MANAGER WIND): New problem, started about a week ago, slightly improved. She had a low-dose CT scan of her chest at [place] with her pulmonary nurse practitioner. A right [...] Proteus (mirabilis) (morgani i) [facility] 05/17/2023 03/07/2024 Overview (03/07/2024): [place], [place], details lacking. Furuncle of pubic region [...] ordered. Assessment & Plan (05/09/2022 10:46 AM MANAGER WIND): Acute problem, present times about 4 days [...] 04/07/202204/21 Cough 11/02/2021 07/12/2023 Overview (07/12/2023): Saw Radha L, ANP, symptoms managed. Assessment & Plan (11/02/2021 4:24 [...] ear. Assessment & Plan (04/26/2022 4:50 PM MANAGER WIND): For the past year or so, she is noted an itchy feeling at the external auditory meatus bilaterally and in the surrounding external ear. Exam shows a probable seborrheic dermatitis. We will have her start some ketoconazole cream. If not responding, she will let us know. Influenza A 03/23/2021 04/25/2022 Overview (04/25/2022): Saw Aliya Huertas D.O. Assessment & Plan (03/23/2021 2:08 PM MANAGER WIND): Reiterated treatment plan. Encouraged patient to increase [...] Plan (08/17/2020 5:56 PM CDT): Prescriptions sent. [id number] exercises encouraged once pain level decreases. Return [...] in your mouth on an sophie like [email or web address] or [employer] carries a zero net carb bread [...] in much longer they will become mushy [place] and/or coconut flour instead of regular flour [...] pork rinds For yogurt, try Two Good niuean yogurt Use Pinterest for recipe ideas. Type in low carb... Assessment & Plan (01/26/2020 8:12 PM MANAGER WIND): Weight reduction, daily exercise and dietary modifications [...] psychiatry Assessment & Plan (01/26/2020 8:10 PM MANAGER WIND): Clinically improved, managed by psychiatrist. Assessment & [...] recommended. Assessment & Plan (01/21/2019 11:41 AM MANAGER WIND): Worsening. Encouraged patient to decrease weight, increase [...] list. Assessment & Plan (01/26/2020 8:11 PM MANAGER WIND): Stable. Cont. Current meds. Managed by psychiatry. [...] (FLUBLOK) 01/09/2024 Influenza, Unspecified 12/18/2023,2020(Deferred: Patient Refused) Cortexica SARS-CoV-2 Monovalent Vaccination (12+ Yrs) PURPLE 06/06/2020,05/14/2020 Pneumococcal Conjugate Pcv20 05/07/2022 Pneumococcal Polysaccharide PPV23 2020,05/31/2014,04/18/2013,03/19 Pneumococcal, Unspecified 04/18/2013 TD Preservative Free 03/19/2013 Td, adsorbed 10/13/2013,03/19/2013 Tdap 10/13/2013 ZOSTER Recombinant 07/19/2022,05/07/2022 Social History Tobacco Use Types Packs/Day Years Used Date Smoking Tobacco: Every Day Cigarettes 1 47.5 Started: 03/19/1977 Smokeless Tobacco: Never Tobacco Cessation:Ready [...] file 01/30/2020 How often do you attend taoism or uatsdin serv ices? Never 01/30/2020 Do you belong to any clubs o r organizations such as taoism groups, unions, fraternal or athletic groups, or [...] on file Legal Sex Female 1:21 PM MANAGER WIND Gender Identity Female 05/05/2022 8:09 AM MANAGER WIND Sexual Orientation Straight 11/04/2018 1: 20 PM CDT Occupation Industry Job Start Date Job End Date disabled Not on file Not on file Not on file Last Filed Vital Signs Vital Sign Reading Time Taken Comments Blood Pressure 102/60 08/19/2024 12:35 PM CDT Pulse 80 08/19/2024 12:35 PM CDT Temperature 36.3 C (97.3 F) 08/19/2024 12:35 PM CDT Respiratory Rate 16 08/19/2024 12:35 PM CDT Oxygen Saturation 95% 08/19/2024 12:35 PM CDT Inhaled Oxygen Concentration - - Weight 129.7 kg (286 lb) 08/19/2024 12:35 PM CDT Height 175.3 cm (5' 9.02) 08/19/2024 12:35 PM C DT Body Mass Index 42.21 08/19/2024 12:35 PM CDT Plan of Treatment Not on file Medical Devices Implanted Type Area Datapower Developer Device Identifier Shelf Expiration Date Model / Serial / Lot Dr[employer] Angio-Seal Vip 6fr Closere Device [id number] - [id number] Implanted:Qty: 1 on 06/27/2024 by Ran García MD at [facility] Move 11/11/2024 [id number] / / [id number] Procedures Procedure Name Priority Date/Time Associated Diagnosis Comments TSH Routine 09/01/2024 1:19 PM CDT Congenital hypothyroidism T4, FREE Routine 09/01/2024 1:19 PM CDT Congenital hypothyroidism T3, FREE Routine 09/01/2024 1:19 PM CDT Congenital hypothyroidism HM DIABETES EYE EXAM Routine 07/31/2024 4:13 [...] HEPATITIS C ANTIBODY Routine 01/21/2019 11:48 AM MANAGER WIND Encounter for hepatitis C screening test for low risk patient COLONOSCOPY Routine 04/23/2017 from Last 3 Months or Most Recently Relevant to Health Maintenance Results * (ABNORMAL) T3, free (09/01/2024 1:19 PM CDT) Free T3 1.7(L) 2.0 - 4.4 pg/mL Comment:Testing performed by : [facility], [address] [place] [address], [place]., [address] Blood 09/01/2024 1:19 PM CDT 09/01/2024 5:15 PM CDT us Stephanie Cole MD LAB BLOOD ORDERABLES Final Re sult Performing Organization Address City/State/[facility] Co de Phone Number [facility] [place]) [facility] [place] [address] * (ABNORMAL) TSH (09/01/2024 1:19 PM CDT) Thyroid Stimulating Hormone 4.36(H) 0.30 - 4.20 mcIUnit/mL Blood 09/01/2024 1:19 PM CDT 09/01/2024 1:36 PM CDT us Stephanie Cole MD LAB BLOOD ORDERABLES Final Re sult [facility] ([place]) 1 [facility] [place] [address] * T4, free (09/01/2024 1:19 PM CDT) Free T4 1.25 0.90 - 1.70 ng/dL Blood 09/01/2024 1:19 PM CDT 09/01/2024 1:36 PM CDT Stephanie Cole MD LAB BLOOD ORDERABLES Final Re sult Performing Organization Address City/[facility]/ZIP Co de Phone Number J[facility]AR [facility] ([place]) [address] [facility] [place] [address] * DIABETES EYE EXAM (07/31/2024 4:13 PM CDT) Pathologist [facility] SCRIBED DIABETIC DILATED EYE EXAM Normal Historical Provider HEALTH MAINTENANCE Final Result * eGFR (07/22/2024 10:15 AM CDT) Pathologist [facility] eGFR 83 >=60 mL/min/1. 73 m2 Comment: [...] ORDERABLES Final Re sult Performing Organization Address [facility]/ZIP Co de Phone Number [facility] ([place]) [facility] [place] [address] * Urinalysis reflex to microscopic (07/22/2024 10:15 [...] tendency for uric acid stone formation. Source: [facility] [place] Current Interpretive Data was last revised on [...] ORDERABLES Final Re sult Performing Organization Address City/[facility]/ZIP Co de Phone Number [facility] ([place]) [facility] [place] [address] * (ABNORMAL) T3, free (07/22/2024 10:15 AM CDT) Free T3 1.3(L) 2.0 - 4.4 pg/mL Comment:Testing performed by : [facility], [address] [place] [address], [place]., [address] Blood 07/22/2024 10:1 5 AM CDT 07/22/2024 2:22 PM CDT us Stephanie Cole MD LAB BLOOD ORDERABLES Final Re sult [facility] ([place]) [facility] [place] [address] * (ABNORMAL) TSH (07/22/2024 10:15 AM CDT) Thyroid Stimulating Hormone 7.55(H) 0.30 - 4.20 mcIUnit/mL Blood 07/22/2024 10:1 5 AM CDT 07/22/2024 10:29 AM CDT us Stephanie Cole MD LAB BLOOD ORDERABLES Final Re sult [facility] ([place]) [facility] [place] [address] * T4, free (07/22/2024 10:15 AM CDT) Free T4 1.14 0.90 - 1.70 ng/dL Blood 07/22/2024 10:1 5 AM CDT 07/22/2024 10:29 AM CDT us Stephanie Cole MD LAB BLOOD ORDERABLES Final Re sult [facility] ([place]) [facility] [place] [address] * (ABNORMAL) Hemoglobin A1c (07/22/2024 10:15 AM CDT) Hgb A1C 7.9(H) 4.0 - 5.6 % Estimated Average Glucose 180 mg/dL [facility] ([place]) Comment: The ADA recommends reporting an estimated Average Glucose (eAG) with all Hemoglobin A1c results using the equation derived from a study of 507 normal and diabetic adults. Minority populations were underrepresented and children were not included. (Diabetes Care 31:9968-3988, 2008). The eAG is not equivalent to a fasting glucose. Blood 07/22/2024 10:1 5 AM CDT 07/22/2024 10:29 AM CDT us Stephanie Cole MD LAB BLOOD ORDERABLES Final Re sult [facility] ([place]) [facility] [place] [address] * (ABNORMAL) Comprehensive metabolic panel (07/22/2024 10:15 AM CDT) Sodium 137 135 - 145 mmol/L Potassium, pl 4.4 3.3 - 4.9 mmol/L [facility] ([place]) Chloride 99 97 - 110 mmol/L [facility] ([place]) CO2 26 22 - 32 mmol/L [facility] ([place]) Anion gap 12 2 - 15 mmol/L [facility] ([place]) BUN 12 6 - 25 mg/dL [facility] ([place]) Creatinine 0.79 0.60 - 1.10 mg/dL [facility] ([place]) Glucose 147 70 - 199 mg/dL [facility] ([place]) Comment: Interpretive Data Fasting glucose >/= [...] ORDERABLES Final Re sult JAMAR [facility] ([place]) [facility] [place] [address] * SCAN - LABS (07/14/2024 3:26 PM CDT) us Stephanie Cole MD Final Result * Urinalysis reflex to microscopic and culture Urine, clean voided (07/14/2024) Urine, clean voided us Stephanie Cole MD LAB MICROBIOLOGY - GENERAL OR DERABLES Edited Result - Final EXTERNAL LAB * POCT glucose (06/27/2024 1:43 PM CDT) Glucose, POC 115 70 - 199 mg/dL Blood 06/27/2024 1:43 PM CDT 06/27/2024 1:43 PM CDT us Ran García MD LAB POCT ORDERABLES - DEVICE Fi nal Result [facility] [place] [facility] Department [place] [address] * LEFT HEART CATHETERIZATION WITH CORONARY ANGIOGRAPHY AND WITH AND WITHOUT LEFT VENTRICULOGRAM (06/27/2024 12:10 PM CDT) Anatomical Region Laterality Modality X-Ray Angiograph y 06/27/2024 Narrative 06/30/2024 7:19 AM CDT [facility] Job ID: [id number] [facility] Document ID: [id number] Dictated date/time: [id number] CARDIAC CATHETERIZATION REPORT A 64-year-old with recurrent episodes of chest pain. She also had severe back pain. Presentation was concerning for angina. She was referred for catheterization. INDICATION FOR PROCEDURE Chest pain. PROCEDURES PERFORMED Left heart catheterization, selective coronary angiography, left ventriculography, vascular access closure. After obtaining informed consent, the patient was brought to the cardiac laborer road suite. She was prepped and draped in the usual fashion. Conscious sedation was administered by the laborer road staff under my supervision. A total of 8 mg of Versed, 300 mcg of fentanyl and 50 mg of Benadryl were given in divided doses. See procedure log for details. Total sedation time was 22 minutes. A 6-Montserratian sheath was inserted in the right femoral [...] Ran García MD Job ID/Internal Job ID: [id number] Ran García MD CV CARDIAC CATH PROCEDURES Aziza l Result * POCT glucose (06/27/2024 9:13 AM CDT) Glucose, POC 197 70 - 199 mg/dL Blood 06/27/2024 9:13 AM CDT 06/27/2024 9:13 AM CDT Ran García MD LAB POCT ORDERABLES - DEVICE Fi nal Result [facility] [place]) [facility] [place] [address] * XR Chest 1 Vw [...] Manfred Santos M.D. RB: ROLANDO Report ID: [id number] Reading Location: [id number] Procedure Note Manfred Santos MD - 06/26/2024 [...] Manfred Santos M.D. RB: ROLANDO Report ID: [id number] Reading Location: [place] [address] Kaitlin Muñoz MD IMG XR PROCEDURES F [...] BLOOD ORDERABLE S Final Result [facility] ([place]) 1 [facility] [place] [address] * eGFR (06/26/2024 11:53 AM CDT) eGFR [...] BLOOD ORDERABLE S Final Result [facility] ([place]) 1 [facility] [place] [address] * (ABNORMAL) Differential, auto (06/26/2024 11:53 AM [...] S Final Result [facility] ([place]) 1 [facility] [place] [address] * (ABNORMAL) CBC with auto differential (06/26/2024 [...] S Final Result [facility] ([place]) 1 [facility] [place] [address] * (ABNORMAL) Comprehensive metabolic panel (06/26/2024 11:53 [...] MD LAB BLOOD ORDERABLE S Final Result [facility] ([place]) [facility] [place] [address] * ECG 12 lead (06/26/2024 11:47 AM CDT) 06/26/2024 11:4 7 AM CDT Narrative [facility] - 06/26/2024 12:19 PM CDT Vent Rate: 80 bpm RR Interval: 748 msec OK Interval: 156 msec QRS Duration: 94 msec QT Interval: 343 msec QTC Interval: 379 msec P-R-T [place]: 56 - 60 - 49 degrees IMPRESSION: SINUS RHYTHM NORMAL ECG NO CHANGE FROM PREVIOUS TRACING NOTED Electronically Signed By: Ran García MD us Kaitlin Muñoz MD ECG ORDERABLES Fin al Result [facility] * eGFR (06/24/2024 10:04 AM [...] LAB BLOOD ORDERABLES Final Re sult JAMAR ORDOÑEZ) 1 [facility] Department [place] [address] * eGFR (06/24/2024 10:04 AM CDT) Pathologist [facility] eGFR >90 >=60 mL/min/1. 73 m2 Comment: [...] LAB BLOOD ORDERABLES Final Resu lt JAMAR Tsai[facility]) 1 [facility] [place] [address] * (ABNORMAL) Differential, auto (06/24/2024 10:04 AM [...] BLOOD ORDERABLES Final Resu lt [facility]AR [facility] ([place]) [facility] [place] [address] * (ABNORMAL) CBC with auto differential (06/24/2024 [...] NRBC abs 0.00 0.00 - 0.01 K/[facility] Blood 06/24/2024 10:0 4 AM CDT 06/24/2024 10:52 AM CDT us Ran García MD LAB BLOOD ORDERABLES Final Resu lt [facility] ([place]) [facility] [place] [address] * Albumin Creatinine Ratio, Urine (06/24/2024 10:04 AM CDT) Albumin Ur <12.0 mg/L Comment: Interpretive Data No reference range established. Current interpretive data was last revised 2018. Testing performed by: [address] [place] [address] Creatinine Ur 61.5 mg/dL [facility] ([place]) Comment: Interpretive Data No reference range established. Current interpretive data was last revised 2018. Testing performed by: [address] [place]., [address] Albumin Creatinine Ratio, Ur <20 1 - 29 mg/g [facility] ([place]) Comment:Testing performed by : [facility], [address] [place] [address]., [address] Urine 06/24/2024 10:0 4 AM CDT 06/24/2024 2:22 PM CDT Stephanie Cole MD LAB URINE ORDERABLES Final Re sult [facility] ([place]) [facility] [place] [address] * Vitamin D 25 hydroxy (06/24/2024 10:04 AM CDT) Vitamin D 25-OH 36 30 - 80 ng/mL Blood 06/24/2024 10:0 4 AM CDT 06/24/2024 10:52 AM CDT Result [facility] Stephanie Cole MD LAB BLOOD ORDERABLES Final Re sult Performing Organization Address [facility] Co de Phone Number J[facility]AR S[facility] ([place]) [address] [facility] [place] [address] * Protime-INR (06/24/2024 10:04 AM CDT) PT 11.8 9.7 - 13.0 sec J[facility]AR SING[facility] ([place]) INR 1.09 0.90 - 1.20 [facility] ([place]) Comment: Interpretive data Oral anticoagulant therapeutic ranges: Venous thromboembolism prophylaxis or treatment: 2.0-3.0 CARDIOLOGY Standard range: 2.0-3.0 High-intensity range: 2.5-3.5 Refer to indication-specific guidelines for appropriate target ranges for prosthetic heart valve replacement. Current interpretive data was last revised on 2019. Blood 06/24/2024 10:0 4 AM CDT 06/24/2024 10:52 AM CDT Ran García MD LAB BLOOD ORDERABLES Final Resu lt Performing Organization Address [facility] Co de Phone Number [facility] ([place]) [address] [facility] [place] [address] * T3, free (06/24/2024 10:04 AM CDT) Free T3 3.7 2.0 - 4.4 pg/mL Comment:Testing performed by : [facility], [address] [place] [address]., [address] Blood 06/24/2024 10:0 4 AM CDT 06/24/2024 2:22 PM CDT Stephanie Cole MD LAB BLOOD ORDERABLES Final Re sult Performing Organization Address [facility] de Phone Number [facility]AR S[facility] ([place]) [address] [facility] [place] [address] * TSH (06/24/2024 10:04 AM CDT) Thyroid Stimulating Hormone 0.62 0.30 - 4.20 mcIUnit/mL Blood 06/24/2024 10:0 4 AM CDT 06/24/2024 10:52 AM CDT Stephanie Cole MD LAB BLOOD ORDERABLES Final Re sult Performing Organization Address [facility] Co de Phone Number [facility]AR S[facility] ([place]) [address] [facility] [place] [address] * (ABNORMAL) T4, free (06/24/2024 10:04 AM CDT) Free T4 0.88(L) 0.90 - 1.70 ng/dL Blood 06/24/2024 10:0 4 AM CDT 06/24/2024 10:52 AM CDT Stephanie Cole MD LAB BLOOD ORDERABLES Final Re sult Performing Organization Address [facility] Co de Phone Number [facility] ([place]) 1 [facility] [place] [address] * (ABNORMAL) Hemoglobin A1c (06/24/2024 10:04 AM CDT) Hgb A1C 6.9(H) 4.0 - 5.6 % Estimated Average Glucose 151 mg/dL [facility] ([place]) Comment: The ADA recommends reporting an estimated Average Glucose (eAG) with all Hemoglobin A1c results using the equation derived from a study of 507 normal and diabetic adults. Minority populations were underrepresented and children were not included. (Diabetes Care 31:9818-6498, 2008). The eAG is not equivalent to a fasting glucose. Blood 06/24/2024 10:0 4 AM CDT 06/24/2024 10:52 AM CDT Stephanie Cole MD LAB BLOOD ORDERABLES Final Re sult Performing Organization Address [facility] Co de Phone Number [facility] ([place]) 1 [facility] [place] [address] * Bilirubin, direct (06/24/2024 10:04 AM CDT) Bilirubin, direct <0.1 0.1 - 0.3 mg/dL Blood 06/24/2024 10:0 4 AM CDT 06/24/2024 10:52 AM CDT Stephanie Cole MD LAB BLOOD ORDERABLES Final Re sult Performing Organization Address [facility] Co de Phone Number [facility] ([place]) 1 [facility] [place] [address] * (ABNORMAL) Lipid panel (06/24/2024 10:04 AM [...] Final Re sult [facility] ([place]) 1 [facility] [place] [address] * (ABNORMAL) Comprehensive metabolic panel (06/24/2024 10:04 [...] MD LAB BLOOD ORDERABLES Final Re sult [facility] ([place]) [facility] Department of Laboratories [place], [place] [id number] * (ABNORMAL) Basic metabolic panel (06/24/2024 10:04 AM CDT) Sodium 135 135 - 145 mmol/L Potassium, pl 4.5 3.3 - 4.9 mmol/L [facility] ([place]) Chloride 98 97 - 110 mmol/L [facility] ([place]) CO2 24 22 - 32 mmol/L [facility] ([place]) Anion gap 13 2 - 15 mmol/L [facility] ([place]) BUN 12 6 - 25 mg/dL [facility] ([place]) Creatinine 0.65 0.60 - 1.10 mg/dL [facility] ([place]) Glucose 264(H) 70 - 199 mg/dL [facility] ([place]) Comment: Interpretive Data Fasting glucose >/= [...] 2022. Calcium 9.4 8.5 - 10.3 mg/dL [facility] ([place]) Blood 06/24/2024 10:0 4 AM CDT 06/24/2024 10:52 AM CDT us Ran García MD LAB BLOOD ORDERABLES Final Resu lt JAMAR [facility] ([place]) 1 [facility] [place] [address] * ECG 12-LEAD (06/23/2024 2:23 PM CDT) [...] - 01/19/2024 Low-dose CT chest 01/19/2024 at [facility] negative for suspicious nodules. Narrative Stephanie Cole MD - 01/19/2024 See scanned report. us Flori [facility]IN[facility]NANCE Fin al Result * MAMMOGRAPHY (11/28/2022) Mammography Normal Impressions Stephanie Cole MD - 11/28/2022 [facility] N[facility]ative Stephanie Cole MD - 11/28/2022 See scanned report. us Betzaida Subramanian NP HEALTH MAINTENANCE Final Result * Hepatitis C antibody (01/21/2019 11:48 AM MANAGER WIND) Hep C Ab Negative Negative J[facility]AR SING[facility] ([place]) Comment:Testing performed by : [facility], [address] [place] [address], [place], [place]., [facility] Blood specimen (specimen) 01/21/2019 11:48 AM MANAGER WIND 01/21/2019 7:22 PM MANAGER WIND us Aliya Huertas DO LAB MICROBIOLOGY - GENERAL ORDERABLES Final Result [facility] ([place]) [facility] [place] [address] * COLONOSCOPY (04/23/2017) Colonoscopy Abnormal us Historical Provider HEALTH MAINTENANCE Final Result from Last 3 Months or Most Recently Relevant to Health Maintenance Insurance [employer] SENIOR SUPPLEMENT MEDICARE MEDICARE [facility] MEDICARE [facility] MEDICARE SUPPLEMENT Advance Directives For more information, please contact: [phone] * Full Code (Latest Code Status on File) Date Activated Date Inactivated Comments 06/27/2024 1:07 PM 06/27/2024 7:17 PM * Full Code Date Activated Date Inactivated Comments 12/19/2019 5:44 PM 12/21/2019 2:39 PM * Full Code Date Activated Date Inactivated Comments 11/19/2019 8:23 PM 11/21/2019 2:56 PM * Full Code Date Activated Date Inactivated Comments 11/21/2018 5:09 PM 11/24/2018 6:00 PM Care Teams Human Resources Trainer Relationship Specialty Start Date End Date Stephanie Cole MD [address] [place] [address] PCP - General Internal Medicine 10/14/21 [place] [address] [facility] [address] [place] [address] Consulting Physician Endocrinology Diabetes & Metabolism 01/21/19 [place] [address] [address] [facility] [address] [place] [address] Referring Physician Psychiatry 01/21/19 [place] [address] [facility] [address] [place] [address] Consulting Physician Pain Management 09/25/22 Aminah Cheung OD [address] [place] [address] Consulting Physician Optometry 01/18/23 Flori Sotelo PA [address] [place] [address] Physician Veterinary Technologist Pulmonary Disease 01/26/24 Kostas Lr MD [address] [facility] [address] [place], [place] [id number] Consulting Physician Cardiology 02/22/24 Jay Marc MD [address] [facility] [address] [place] [id number] Surgeon Orthopedic Surgery 04/21/24
--- NOTE | 2024-09-24 12:10 | P.SLEEP_ITS ---
Sleep Study Date of Study: 09/04/24 Ordering Provider: KEV Ramirez Interpreting Physician: Thea Randall DO Sleep Study Type: BiPAP Titration Height: 1.75 m Weight: 127.006 kg Body Mass Index: 41.3 Neck Circumference (inches): 17 [place]: 1 Reason for Sleep Study Currently on ASV with 1 L O2 bleed-in with residual AHI of 0.5. Sleep History The patient is a 64-year-old female that had a sleep study ordered by the pulmonary group to determine optimal pressure settings on her ASV machine. The patient occasionally awakens from sleep short of breath. She occasionally awakens at night with heartburn, belching or cough. She denies snoring. She occasionally has trouble sleeping when she has a cold. She rarely wakes up gasping for air throughout the night. She occasionally has breathing problems at night observed by herself or others. She frequently sweats excessively at night. She rarely has heart palpitations or irregular heartbeats during the night. She denies falling asleep during the day and while driving. She frequently experiences loss of muscle tone when extremely emotional. She denies sleep paralysis. She rarely experiences vivid dreamlike scenes upon awakening or falling asleep. She denies feeling afraid of going to sleep. She rarely has nightmares. She rarely remembers her dreams. She frequently has thoughts racing through her mind. He rarely feels sad or depressed. She occasionally has anxiety. She frequently has muscular tension. She rarely notices parts of her body jerk. She denies kicking during the night. She denies having crawling and aching feelings in her legs and denies having leg pain during the night. She denies grinding her teeth during sleep and denies awakening with morning jaw pain. She is frequently bothered by pain during the day and occasionally awakened by pain during the night. She occasionally wakes up feeling stiff in the morning. She occasionally wakes up with sore or achy muscles. She frequently wakes up with pain in the neck, spine and other joints. She goes to bed between 8-9 p.m. on both weekdays and weekends. It takes her 90 minutes to fall asleep. She wakes up 1-2 times throughout the night to urinate or smoke and is able to fall back asleep within 5 minutes. She wakes up between 7-8 a.m. every morning. She typically gets 6-10 hours of sleep per night. She does not stay in bed after waking up in the morning. She currently lives with her . She denies consuming any caffeinated beverages within 2 hours of bedtime. She denies engaging in physical exercise before bedtime. She denies reading before falling asleep. She will watch television before falling asleep. She will occasionally take naps in afternoon or the evening but they are not refreshing. She denies consuming any caffeinated beverages throughout the day. She currently smokes 1 pack of cigarettes per day. She denies alcohol and recreational drug use. FORMERLY [facility] Past Medical History Medical History Anxiety Psychiatrist - Dr Zachary Hurley Chronic back pain and cervical stenosis. 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 - Dr Randolph Surgical History Surgical History History of fusion of cervical spine 2009 H/O: hysterectomy History of appendectomy 1985 Status post anal fissurectomy 1996 History of cholecystectomy 1985 Social History Social History Smoking packs per day: 1 Smoking cigarettes per day: 20.0 Smoking status: Current every day smoker Alcohol intake: never Medications Home Medications ?Medication ?Instructions ?Recorded ?Confirmed ?Type atorvastatin 40 mg tablet 40 mg PO QHS 06/27/22 01/21/24 History desvenlafaxine succinate 100 mg 100 mg PO DAILY 06/27/22 01/21/24 History tablet,extended release 24 hr (Pristiq) ergocalciferol (vitamin D2) 1,250 1,250 mcg PO WEEKLY 06/27/22 01/21/24 History mcg (50,000 unit) capsule famciclovir 250 mg tablet 250 mg PO Q12H 06/27/22 01/21/24 History gabapentin 300 mg capsule 300 mg PO BID 06/27/22 01/21/24 History nortriptyline 10 mg capsule 10 mg PO QHS 06/27/22 01/21/24 History pregabalin 100 mg capsule 100 mg PO DAILY 11/15/22 01/21/24 History budesonide-formoterol HFA 160 2 puff inhalation Q12H #10.2 grams 02/13/23 01/21/24 Rx mcg-4.5 mcg/actuation aerosol inhaler liothyronine 5 mcg tablet 10 mcg PO BID 09/25/23 01/21/24 History lorazepam 0.5 mg tablet 0.5 mg PO DAILY PRN 09/25/23 01/21/24 History losartan 25 mg tablet 25 mg PO DAILY 09/25/23 01/21/24 History metformin 500 mg tablet 500 mg PO BID 09/25/23 01/21/24 History propranolol 20 mg tablet 20 mg PO BID 09/25/23 01/21/24 History quetiapine 100 mg tablet 200 mg PO QHS 09/25/23 01/21/24 History varenicline tartrate 1 mg tablet 1 mg PO BID #56 tabs 03/18/24 Rx budesonide 160 mcg-glycopyr 9 2 inh inhalation BID #32.1 grams 04/04/24 Rx mcg-formot 4.8 mcg/actuation HFA inhaler (Breztri Aerosphere) albuterol sulfate 2.5 mg/3 mL 2.5 mg (3 mL) inhalation Q4-6H PRN 06/16/24 Rx (0.083 %) solution for nebulization shortness of breath or wheezing #180 mL albuterol sulfate 90 mcg/actuation 1 - 2 puff inhalation Q4-6H PRN 06/17/24 Rx aerosol inhaler shortness of breath or wheezing #8.5 grams eszopiclone 2 mg tablet (Lunesta) 2 mg PO ONCE #1 tablet 07/08/24 Rx lidocaine 5 % topical patch 1 patch topical DAILY #15 ea 08/09/24 Rx Sleep Procedure A full night ASV Titration using the Fridge multi-channel system recorded the standard physiologic parameters including EEG, EOG, submentalis EMG, anterior tibialis EMG, EKG, body position, nasal and oral airflow using nasal pressure sensor and thermistor.? Respiratory parameters of chest and abdominal movements were recorded with Respiratory Inductance Plethysmography belts. Oxygen saturation was recorded by pulse oximetry. Video monitoring was also performed. Sleep stages, periodic limb movements, and EEG arousals were scored in 30 second epochs according to the criteria of the AASM Scoring Manual. The Apnea-Hypopnea Index was calculated using CMS guidelines for definition of hypopnea with 4% O2 desaturations while scoring respiratory events. Sleep Architecture The total recording time was 512.7 minutes.? The total sleep time was 398.5 minutes. Sleep latency was 59.3 minutes. REM latency was 316.0 minutes. Sleep efficiency was 77.7%. The patient had 9 awakenings for an awakening index of 1.4. Wake after Sleep Onset time was 55.0 minutes. The patient spent 21.5 minutes, 5.4% of total sleep time in Stage N1. The patient spent 295.0 minutes, 74.0% in Stage N2. The patient spent 39.5 minutes, 9.9% in Stage N3. The patient spent 42.5 minutes, 10.7% in Stage REM. Respiratory Analysis The patient had 17 hypopneas, 1 obstructive apnea and 3 mixed apneas for an overall Apnea Hypopnea Index of 3.2 events per hour. The REM Apnea Hypopnea Index was 9.9. The NREM Apnea Hypopnea Index was 2.4. The patient had a Central Apnea Hypopnea Index of 0. There was no evidence of Les-Kinney Respirations. The patient was started on ASV 18/10.5/4 cm H2O on room air. Supplemental oxygen was added at 1 lpm and increased to 2 lpm due to persistent hypoxemia in the absence of respiratory events. Her oxygen saturation remained around 90% with her current ASV settings and 2 lpm of O2. Arousals There were 36 total arousals for an arousal index of 5.4. There were 27 spontaneous arousals for an index of 4.1. ?There were 2 arousals due to respiratory events for an index of 0.3. There were 8 arousals due to periodic limb movements for an index of 1.2.? There were 0 arousals due to isolated limb movements for an index of 0. Periodic Limb Movements The patient had 8 isolated limb movements with an index of 1.2. The patient had 234 periodic limb movements with index of 35.2, which is elevated (normal < 15). Patient had a total of 242 limb movements with a total limb movement index of 36.4. Oximetry Data The patient had an average oxygen saturation of 89.0% in sleep with a minimum oxygen saturation of 83.0% and a maximum oxygen saturation of 93.0%. The patient had 23 oxygen desaturations that were 4% or greater resulting in an Oxygen Desaturation Index of 3.5.? The patient spent 182 minutes, 36.3% of total sleep time with an oxygen saturation below 88%. Snoring Profile Mild snoring was present intermittently throughout the study. Cardiac Profile The EKG showed normal sinus rhythm with occasional PVCs. The patient had an average pulse rate of 76.3 bpm with a minimum pulse rate of 72.0 bpm and a maximum pulse rate of 81.0 bpm. ? EEG Profile No signs of seizure activity seen. Assessment and Plan Assessment and Plan (1) Obstructive sleep apnea: Code(s): G47.33 - Obstructive sleep apnea (adult) (pediatric) Status: Acute Assessment and Plan: The patient had a sleep study ordered to determine if she needed supplemental oxygen while using her ASV machine. The patient was started on ASV 18/10.5/4 cm H2O on room air and titrated to 2 lpm of O2. Her oxygen saturation remained around 90% while on 2 lpm. I recommend that the patient use ASV 18/10.5/4 cm H2O with 2L O2 bleed-in during sleep. She used a size medium Resmed AirFit F20 full face mask during this study. Data The data obtained during this sleep study is adequate for interpretation. Certification This sleep study has been reviewed by a board certified sleep medicine physician.
[2024-09-25 12:11] VITALS: BMI 41.3
== END 2024-09-05 06:35 | disposition home or self-care (01) ==
LOC: ANHCSM 08:21
PROVIDERS: PCP Internal Medicine Infectious Disease; Visit Provider Physician Assistant
DX: G47.33 Obstructive sleep apnea (adult) (pediatric) (principal)
CPT/HCPCS: 95811

== ENCOUNTER 2024-10-03 09:39 | Outpatient (CLI) | payer MEDICARE, SELFPAY ==
--- OUTSIDE RECORDS SUMMARY | 2024-10-03 09:42 | XMS_ITS | Encounter Summary ---
Author Organization [facility] Address [address] [place] [address] Care Team Providers Care Custom Marine Canvas Fabricator Name Role Phone Naveed Fernandez MD Primary Care Provider Unavail able Encounter Details Date Type Department Care Team (Latest Contact Info) Description 02/19/2004 Outpatient Historical [facility] [place] [address] [place] [address] INTRINS URETHRL SPHINC DEFICIENCY (Primary Dx) Social History Tobacco Use Types Packs/Day Years Used Date Smoking Tobacco: Never Assessed Comments Unknown Sex and Gender Information Value Date Recorded Sex Assigned at Female 01/14/2024 8:12 PM CDT Legal Sex Female 4:52 AM CLINICAL EXERCISE SPECIALIST Gender Identity Female 01/14/2024 8:12 PM [...] 02/10/2024 02/10/2024 02/10/2024 8 :05 PM CLINICAL EXERCISE SPECIALIST R/O Respiratory 03/31/2024 03/31/2024 03/31/2024 5 :16 PM CLINICAL EXERCISE SPECIALIST COVID-19 03/31/2024 03/31/2024 04/20/2024 1:16 AM CLINICAL EXERCISE SPECIALIST R/O C. diff 04/01/2024 04/01/2024 04/02/2024 3:00 AM CLINICAL EXERCISE SPECIALIST documented as of this encounter Care Teams Custom Marine Canvas Fabricator Relationship Specialty Start Date End Date Naveed Fernandez MD PCP - General Internal Medicine 04/21/23 Flori Mcdonald Nurse Practitioner Pulmonology 04/06/23 documented as of this encounter
--- OUTSIDE RECORDS SUMMARY | 2024-10-03 09:42 | XMS_ITS | Encounter Summary ---
Author Organization [facility] Address [address] [place] [address] Care Team Providers Care Packing Checker Name Role Phone Naveed Fernandez MD Primary Care Provider Unavail able Encounter Details Date Type Department Care Team (Late st Contact Info) Description 09/30/2003 Outpatient [facility] [address] [place] [address] David Young MD [address] [address] Social History Tobacco Use Types Packs/Day Years Used Date Smoking Tobacco: Never Assessed Comments Unknown Sex and Gender Information Value Date Recorded Sex Assigned at Female 01/14/2024 8:12 PM CDT Legal Sex Female 4:52 AM CLOCK MAKER Gender Identity Female 01/14/2024 8:12 PM CDT Sexual Orientation Choose not to disclose 2023 8:12 PM CDT documented as of this encounter Plan of Treatment Not on file documented as of this encounter Visit Diagnoses Not on filedocumented in this encounter Additional Health Concerns Infection Onset Date Last Indicated Resolved Time R/O Respiratory 02/10/2024 02/10/2024 02/10/2024 8 :05 PM CLOCK MAKER R/O Respiratory 03/31/2024 03/31/2024 03/31/2024 5 :16 PM CLOCK MAKER COVID-19 03/31/2024 03/31/2024 04/20/2024 1:16 AM CLOCK MAKER R/O C. diff 04/01/2024 04/01/2024 04/02/2024 3:00 AM CLOCK MAKER documented as of this encounter Care Teams Packing Checker Relationship Specialty Start Date End Date Naveed Fernandez MD PCP - General Internal Medicine 04/21/23 Flori Mcdonald Nurse Practitioner Pulmonology 04/06/23 documented as of this encounter
--- OUTSIDE RECORDS SUMMARY | 2024-10-03 09:42 | XMS_ITS | Encounter Summary ---
Author Organization [facility] Address [address] [place] [address] Care Team Providers Care Rn Embedded Name Role Phone Naveed Fernandez MD Primary Care Provider Unavail able Encounter Details Date Type Department Care Team (Late st Contact Info) Description 06/04/2023 Telephone [facility] [id number] [place] [phone] [place] [id number] [place] [phone] Social History Tobacco Use Types Packs/Day Years Used Date Smoking Tobacco: Every Day Cigarettes 1 40 Passive Smoke Exposure: Past Smokeless Tobacco: Never Alcohol Use Standard Drinks/Week Comments No 0 (1 standard drink = 0.6 oz pur e alcohol) Comments No Sex and Gender Information Value Date Recorded Sex Assigned at Female 01/14/2024 8:12 PM CDT Legal Sex Female 4:52 AM MUSIC ADAPTER Gender Identity Female 01/14/2024 8:12 PM CDT Sexual Orientation Choose not to disclose 2023 8:12 PM CDT documented as of this encounter Miscellaneous Notes * Telephone Encounter - Rand Abrams RN - 06/04/2023 3:45 PM CDT Call out to [facility] and spoke with eliza Cooley placed on hold. documented in this encounter Plan of Treatment Not on file documented as of this encounter Visit Diagnoses Not on filedocumented in this encounter Additional Health Concerns Infection Onset Date Last Indicated Resolved Time R/O Respiratory 02/10/2024 02/10/2024 02/10/2024 8 :05 PM MUSIC ADAPTER R/O Respiratory 03/31/2024 03/31/2024 03/31/2024 5 :16 PM MUSIC ADAPTER COVID-19 03/31/2024 03/31/2024 04/20/2024 1:16 AM MUSIC ADAPTER R/O C. diff 04/01/2024 04/01/2024 04/02/2024 3:00 AM MUSIC ADAPTER documented as of this encounter Care Teams Rn Embedded Relationship Specialty Start Date End Date Naveed Fernandez MD PCP - General Internal Medicine 04/21/23 Flori Mcdonald Nurse Practitioner Pulmonology 04/06/23 documented as of this encounter
--- OUTSIDE RECORDS SUMMARY | 2024-10-03 09:42 | XMS_ITS | Clinical Summary ---
Author Organization [facility] Address [address] [place] [address] Care Team Providers Care Tinsel Machine Operator Name Role Phone Naveed Fernandez MD Primary Care Provider [phone] Source Comments [facility],non-owned Affiliates and Associated Physician Practices is amultiple site organization consisting of ambulatory clinics and hospital sitesin [place], [place], [place] and [place]. This disclosure is being madepursuant to the Care Everywhere program and may not contain all information available regarding this patient. Last updated 17.[facility] Allergies Active Allergy Reactions Criticality Noted Date Comments [place] Other Low 01/31/2015 tremors severe shakes Powdered [...] Active vitamin D, ergocalciferol, (DRISDOL) 1.25 MG (17710 UT) capsule Take 1 (one) capsule by [...] (10/18/2020): Last Assessment & Plan: Prescriptions sent. Jcjoi-qb-[id number] exercises encouraged once pain level decreases. Return to clinic if no resolution of pain. Hyperhidrosis 08/06/2020 Overview (10/18/2020): Last Assessment & Plan: Recent labs were all within normal range with exception of her TSH which was slightly elevated. She was seen by the nurse practitioner at that time who increased her levothyroxine to 150 mcg daily. 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 She is taking a medication, Cytomel, which has a common side effect of diaphoresis. Encouraged patient to speak to her district manager in training about possibly discontinuing this medication. Memory loss 01/19/2020 Hyperplastic polyp of sigmoid colon 01/01/2020 Overview (10/18/2020): Colonoscopy 04/23/2017 [facility] everywhere Chronic migraine [...] in your mouth on an sophie like [employer] or GreenItaly1i carries a zero net carb bread If [...] in much longer they will become mushy [place] and/or coconut flour instead of regular flour [...] pork rinds For yogurt, try Two Good nepali yogurt Use Pinterdarren for recipe ideas. Type [...] in much longer they will become mushy [place] and/or coconut flour instead of regular flour [...] pork rinds For yogurt, try Two Good nepali yogurt Use Pinterest for recipe ideas. Type [...] on file Legal Sex Female 5:53 AM PLC CONTROLS ENGINEER Gender Identity Not on file Sexual Orientation Not on file Last Filed Vital Signs Vital Sign Reading Time Taken Comments Blood Pressure 129/80 01/24/2023 2:24 PM PLC CONTROLS ENGINEER Pulse 81 01/24/2023 2:24 PM PLC CONTROLS ENGINEER Temperature 36.7 C (98.1 F) 08/01/2012 5:43 AM CDT Respiratory Rate 16 01/24/2023 2:24 PM PLC CONTROLS ENGINEER Oxygen Saturation 93% 01/24/2023 2:24 PM PLC CONTROLS ENGINEER Inhaled Oxygen Concentration - - Weight 117.9 [...] HEPATITIS C SCREENING 04/15/1978 PAP SMEAR 1981 LUNG CANCER SCREENING 2010 ZOSTER VACCINE (1 [...] MEDICARE AWV CALENDAR YEAR 2024 INFLUENZA VACCINE (#1) 2024 3, 01/04/2021, 12/21/2019, Additional history exists SCREENING FOR [...] COMPREHENSIVE METABOLIC PANEL (07/30/2012 1:05 PM CDT) Pathologist [facility] Glucose 87 74 - 106 mg/dL 07/30/2012 [...] - 8.2 gm/dL 07/30/2012 1:37 PM CDT [facility] Albumin 4.4 3.4 - 5.0 gm/dL 07/30/2012 1:37 PM CDT [facility] Bilirubin Total 0.4 0.2 - 1.0 mg/dL 07/30/2012 1:37 PM CDT [facility] Blood specimen (specimen) BLOOD SPECIMEN / Unknown 07/30/2012 1:05 PM CDT 07/30/2012 1:15 PM CDT Dorita Gilliam PA-C LAB - CHEMISTRY ORDERABLES Fin al Result [facility] [address] [place] [address] from Last 3 Months or Most Recently Relevant to Health Maintenance Insurance [facility] Address: [facility] [address] [place] [address] AETNA MEDICARE ADV AETNA ANTHEM ANTHEM Advance Directives * FULL RESUSCITATION (Latest Code Status on File) Date Activated Date Inactivated Comments 07/30/2012 6:15 PM 08/01/2012 12:40 PM Care Teams Tinsel Machine Operator Relationship Specialty Start Date End Date Naveed Fernandez MD [address] [place] [phone] PCP - General Infectious Disease 12/20/22
--- OUTSIDE RECORDS SUMMARY | 2024-10-03 09:42 | XMS_ITS | Encounter Summary ---
Author Organization [facility] Address [address] [place] [address] Phone Care Team Providers Care Supervisor Beater Room Name Role Phone Chago Randolph MD Unavailable Zachary Hurley MD Unavailable Betzaida Subramanian DITCH TENDER Unavailable [phone] Naveed Fernandez MD Primary Care Provider [phone] Yony Barker MD Unavailable Osvaldo Feldman MD Unavailable [phone] Aminah Cheung OD Unavailable [phone] Jay Marc MD Unavailable [phone] Flori Sotelo Unavailable Kostsa Lr MD Unavailable [phone] Jay Marc MD Unavailable Bonita Cotto DITCH TENDER Unavailable [phone] Encounter Details Date Type Department Care Team (Late st Contact Info) Description 10/25/2021 Orders Only [facility] [address] [facility] [place] [address] Naveed Fernandez MD [address] [place] [address] Social History Tobacco Use Types Packs/Day Years [...] file 01/30/2020 How often do you attend christianity or samaritan serv ices? Never 01/30/2020 Do you belong to any clubs o r organizations such as christianity groups, unions, fraternal or athletic groups, or [...] on file Legal Sex Female 1:21 PM ACCOUNT CONSULTANT Gender Identity Female 05/05/2022 8:09 AM ACCOUNT CONSULTANT Sexual Orientation Straight 11/04/2018 1: 20 [...] documented as of this encounter Care Teams Supervisor Beater Room Relationship Specialty Start Date End Date Naveed Fernandez MD [address] [place] [address] PCP - General Internal Medicine 10/14/21 [place] [address] [facility] [address] [place] [address] Consulting Physician Endocrinology Diabetes & Metabolism 01/21/19 [place] [address] [facility] [address] [place] [address] Referring Physician Psychiatry 01/21/19 Betzaida Subramanian NP [address]S Hu [facility] [address] [place] [address] Nurse Practitioner Obstetrics and Gynecology 01/04/21 04/20/24 Yony Barker MD [address] [facility] [address] [place] [address] Referring Physician Pain Management 06/16/22 10/25/22 [place] [address] [place] [address] Consulting Physician Pain Management 09/25/22 Aminah Cheung OD [address] [place] [address] Consulting Physician Optometry 01/18/23 Jay Marc MD [address] [place] [address] Surgeon Orthopedic Surgery 04/20/23 04/20/24 Flori Sotelo PA [address] [place], [place] [id number] Physician Dog Catcher Pulmonary Disease 01/26/24 Kostas Lr MD [address] [place], [place] [id number] Consulting Physician Cardiology 02/22/24 Jay Marc MD [address] [place] [address] Surgeon Orthopedic Surgery 04/21/24 Bonita Cotto NP [address] [place] [address] Nurse Practitioner Family Medicine 09/04/24 documented as of this encounter
--- OUTSIDE RECORDS SUMMARY | 2024-10-03 09:42 | XMS_ITS | Encounter Summary ---
Author Organization [facility] Healthcare Address [address] [place] [address] Care Team Providers Care Quarter Lining Smoother Name Role Phone Chago Randolph MD Unavailable Christelle Huertas DO Primary Care Provider [phone] Zachary Hurley MD Unavailable [phone] Betzaida Subramanian HAIR OR BEAUTY SALON MANAGER Unavailable [phone] Naveed Fernandez MD Primary Care Provider Yony Barker MD Unavailable Osvaldo Feldman MD Unavailable Aminah Cheung OD Unavailable Jay Marc MD Unavailable Flori Sotelo Unavailable Kostas Lr MD Unavailable Jay Marc MD Unavailable Bonita Cotto HAIR OR BEAUTY SALON MANAGER Unavailable [phone] Reason for Visit * Reason Onset Date Comments Scheduling Appointments 08/04/2020 Confirmi ng mammogram appt- no answer Encounter Details Date Type Department Care Team (Late st Contact Info) Description 08/04/2020 Telephone [facility] [address] [place] [id number] [address] Blank RT Scheduling Appointments (Confirming mammogram [...] file 01/30/2020 How often do you attend mandaen or mu-ism serv ices? Never 01/30/2020 Do you belong to any clubs o r organizations such as mandaen groups, unions, fraternal or athletic groups, or [...] on file Legal Sex Female 1:21 PM DOCUMENT MANAGEMENT SPECIALIST Gender Identity Female 05/05/2022 8:09 AM DOCUMENT MANAGEMENT SPECIALIST Sexual Orientation Straight 11/04/2018 1: 20 PM [...] documented as of this encounter Care Teams Quarter Lining Smoother Relationship Specialty Start Date End Date Christelle Huertas [id number] [facility] [address] [place] [address] PCP - General Family Medicine 01/21/19 09/11/21 Naveed Fernandez MD [address] [place] [address] PCP - General Internal Medicine 10/14/21 [place] [id number] [facility] [address] [place] [address] Consulting Physician Endocrinology Diabetes & Metabolism 01/21/19 [place] [address] [address] [facility] [address] [place] [address] Referring Physician Psychiatry 01/21/19 Betzaida Subramanian NP [address] [facility] [address] [facility] [address] [place] [address] Nurse Practitioner Obstetrics and Gynecology 01/04/21 04/20/24 Yony Barker MD [address] [facility] [address] [place] [address] Referring Physician Pain Management 06/16/22 10/25/22 [place] [address] [facility] [address] [place] [address] Consulting Physician Pain Management 09/25/22 Aminah Cheung OD [address] [place] [address] Consulting Physician Optometry 01/18/23 Jay Marc MD [address] [place] [id number] Surgeon Orthopedic Surgery 04/20/23 04/20/24 Flori Sotelo PA [address] [id number] Physician Lead Cargo Mover Pulmonary Disease 01/26/24 Kostas Lr MD [address] [place], [place] [id number] Consulting Physician Cardiology 02/22/24 Jay Marc MD [address] [place] [id number] Surgeon Orthopedic Surgery 04/21/24 Bonita Cotto NP [address] [place] [address] Nurse Practitioner Family Medicine 09/04/24 documented as of this encounter
--- OUTSIDE RECORDS SUMMARY | 2024-10-03 09:42 | XMS_ITS | Clinical Summary ---
Author Organization [facility] Address [address] [place] [address] Phone Care Team Providers Care Data Analysis Assistant Name Role Phone Afshin Willis MD Unavailable [phone] Kenyatta Comer MD Primary Care Provider [phone] Sumanth Chan MD Unavailable Allergies Active Allergy Reactions Criticality Noted Date Comments [place] Other (see Comments) 01/31/2015 Other Itching 02/24/2015 [...] arthropathy, lumbosacral 02/24/2015 Lumbar foraminal stenosis 02/24/2015 Immunizations Immunization Administration Dates Next Due Influenza [...] Date Smoking Tobacco: Every Day Cigarettes 0.8 49.5 Started: 1975 Smokeless Tobacco: Never Alcohol [...] Occult Blood 07/12/2022 07/12/2021 Mammogram 09/07/2022 09/07/2021, 07/18, 05/26/2019, Additional history exists SARS-COV-2 Immunization ( season) 2023 12/27/2021, 06/06/2020, 05/14/2020 Influenza Immunization (#1) 11/17/202412/18, 12/18/2023, 05/18/2023, Additional history exists Lung Cancer Screening 03/31/2025 03/31/2024 , 06/23/2015, 06/24/2014, Additional history exists Td Immunization Every 10 Years (Adults With 1 Tdap) 05/17/2033 05/18/2023, 10/13/2013, 10/13/2013, Additional history exists Pneumococcal Immunization (50+ years) Completed 05/07/2022, 01/04/2021, 05/31/2014, Additional history exists Pneumococcal Immunization Combined Discontinued 05/07/2022, 01/04/2021, 05/31/2014, Additional history exists Zoster Immunization Completed 07/19/2022, Hepatitis B Immunization Aged Out No longer [...] Procedure Name Priority Date/Time Associated Diagnosis Comments KEISHA SCREENING BILATERAL DIGITAL W CAD W VERA Routine 04/15/2018 1:04 PM FUND ACCOUNTANT Encounter for screening mammogram for malignant neoplasm of breast CT CHEST W CONTRAST STAT 06/23/2015 8 :04 PM CDT from Last 3 Months or Most Recently Relevant to Health Maintenance Results * KEISHA SCREENING BILATERAL DIGITAL W CAD W VERA (04/15/2018 1:04 PM FUND ACCOUNTANT) Anatomical Region Laterality Modality breast Bilateral Mammography 04/15/2018 6:06 AM FUND ACCOUNTANT Narrative 05/08/2018 9:53 AM FUND ACCOUNTANT - KEISHA SCREENING BILATERAL DIGITAL W CAD W VERA BILATERAL DIGITAL SCREENING MAMMOGRAM 3D/2D WITH CAD WITH MEDIOLATERAL OBLIQUE CRANIOCAUDAL: 04/15/2018 The study was acquired using digital technology and interpreted from soft copy. Current study was also evaluated with [employer] version 7.2. CLINICAL: Routine screening. Patient has no complaints. No personal history of cancer. Mother with postmenopausal breast cancer. Sister with breast cancer. Maternal aunt had breast cancer. COMPARISONS: Comparison is made to exams dated: 04/10/2017, 11/10/2016, and 10/07/2015 [facility]. BREAST TISSUE:There are scattered fibroglandular densities in [...] exam. Electronically signed by: Yrn syed/regla:05/08/2018 08:57:19 Ob Scrub Tech: Sidra Buck)(Chen), [facility] letter sent: Normal Exam Reading location: [facility] BI-RADS: 1 Negative Procedure Note Yrn Burr [...] to exams dated: 04/10/2017, 11/10/2016, and 10/07/2015 [facility]. BREAST TISSUE:There are scattered fibroglandular densities in [...] exam. Electronically signed by: Yrn syed/regla:05/08/2018 08:57:19 Ob Scrub Tech: Sidra Buck)(M), [facility] letter sent: Normal Exam Reading location: [facility] BI-RADS: 1 Negative Cher Garcia MD IMG [...] 2. Severe hepatic steatosis. Baron Bansal MD IMG CT ORDERABLES Final Res ult from Last 3 Months or Most Recently Relevant to Health Maintenance Insurance MEDICARE [facility] Care Teams Data Analysis Assistant Relationship Specialty Start Date End Date Kenyatta Comer MD [address] [facility] [address] [place] [id number] PCP - General Internal Medicine 03/02/17 Afshin Willis MD General Surgery 05/17/16 Sumanth Chan MD [address] [address] Consulting Physician Colon and Rectal Surgery 06/10/24
--- OUTSIDE RECORDS SUMMARY | 2024-10-03 09:42 | XMS_ITS | Clinical Summary ---
Author Organization [facility] Address [address] [place] [address] Phone Care Team Providers Care Environmental Economist Name Role Phone Naveed Fernandez MD Primary Care Provider Unavail able Allergies Active Allergy Reactions Criticality Noted Date Comments Grenola Other (See Comments) Low 01/31/2015 tremors tremors [...] daily. 4 Active naloxone (NARCAN) 4 mg/spray Sage, Non-Aerosol Administer 1 Sage in each nostril. 3 Active liothyronine (CYTOMEL) [...] moderate pain. 20 Tablet 03/30/2024 1:16 PM SODA FLAKER 5 Active losartan (COZAAR) 50 mg tablet [...] of Breath. 8.5 Gram 04/03/2024 2:51 PM SODA FLAKER 5 Active cyclobenzaprine (FLEXERIL) 5 mg Tablet Take 1 Tablet (5 mg) by mouth 3 times daily as needed for Spasm. 90 Tablet 04/03/2024 2:51 PM SODA FLAKER 5 Active albuterol (PROVENTIL,VENTOLI N) 2.5 mg /3 mL (0.083 %) Solution for Nebulization Take 3 mL (2.5 mg) by inhalation every 6 hours as needed for Shortness of Breath or Wheezing. 90 mL 04/03/2024 2:51 PM SODA FLAKER 01/16/202 5 Active predniSONE (DELTASONE) 20 mg tablet Starting 04/04: Take 2 Tablets (40 mg) by mouth daily with breakfast. 2 Tablet 04/03/2024 2:51 PM SODA FLAKER Active oxyCODONE (ROXICODONE) 10 mg tabletIndications: Spondylosis without myelopathy or radiculopathy, sacral and sacrococcygeal region Take 1 Tablet (10 mg) by mouth every 6 hours as needed for Pain. Max Daily Amount: 40 mg 20 Tablet 04/03/2024 2:51 PM SODA FLAKER Active polyethylene glycol 3350 (MIRALAX) 17 gram/dose Powder Starting 04/04: Dissolve 1 capful (17 Grams) in 8 ounces of fluid and drink by mouth once daily. mix as directed 510 Gram 04/03/2024 2:51 PM SODA FLAKER Active Active Problems Problem Noted Date Diagnosed [...] continued 7. Avoid alcohol sedatives and other HAND BULLDOZER depression that may worsen sleep apnea and [...] 150 mcg daily. Patient does have a nail expert, advised patient to follow-up with nail expert. She is taking a medication, Cytomel, which has a common side effect of diaphoresis. Encouraged patient to speak to her nail expert about possibly discontinuing this medication. Last Assessment & Plan: Recent labs were all within normal range with exception of her TSH which was slightly elevated. She was seen by the nurse practitioner at that time who increased her levothyroxine to 150 mcg daily. Patient does have a nail expert, advised patient to follow-up with nail expert. She is taking a medication, Cytomel, which has a common side effect of diaphoresis. Encouraged patient to speak to her nail expert about possibly discontinuing this medication. Herpes simplex infection 01/19/2020 Essential hypertension 01/19/2020 Memory loss 01/19/2020 Hyperplastic polyp of sigmoid colon 01/01/2020 Overview (04/20/2023): Colonoscopy 04/23/2017 [facility] Colonoscopy 04/23/2017 [facility] Chronic migraine without aur a without [...] Encounters Date Type Department Care Team Description 09/16/2024 External Device Data STL ABSTRACTION Provider, Abstract 07/28/2024 12:57 PM CDT - 07/28/2024 11:59 PM CDT Hospital Encounter [address] [address] Jay Marc MD Discharge Disposition: Home or Self Care 07/15/2024 External Device Data STL ABSTRACTION Provider, Abstract 07/15/2024 External Device Data ST[facility] ABSTRACTION Provider, Abstract 07/07/2024 12:14 PM CDT - 07/07/2024 11:59 PM CDT Hospital Encounter [facility] [address] [place] [address] Jay Marc MD Discharge Disposition: Home or Self Care from Last 3 Months Immunizations Immunization Administration Dates Next Due (ADACEL/BOOSTRIX)(10 YR UP) TDAP VACCINE, 0.5ML, IM 05/18/2023 (PREVNAR 20)(6 WKS UP) PNEUM OCOCCAL CONJUGATE VACCINE 20-VALENT (PCV20), POLYSACCHARIDE [id number] CONJUGATE, ADJUVANT 0.5 ML (PF) IM 05/18/2023() [...] PM CDT Legal Sex Female 4:52 AM SODA FLAKER Gender Identity Female 01/14/2024 8:12 PM CDT Sexual Orientation Choose not to disclose 2023 8:12 PM CDT Last Filed Vital Signs Vital Sign Reading Time Taken Comments Blood Pressure 129/48 04/03/2024 1:23 PM SODA FLAKER Pulse 63 04/03/2024 1:23 PM SODA FLAKER Temperature 36.6 C (97.8 F) 04/03/2024 1:23 PM SODA FLAKER Respiratory Rate 12 04/03/2024 8:08 AM SODA FLAKER Oxygen Saturation 91% 04/03/2024 1:23 PM SODA FLAKER Inhaled Oxygen Concentration - - Weight 125.9 kg (277 lb 9 oz) 03/31/2024 11:21 P M SODA FLAKER Height 172.7 cm (5' 8) 03/31/2024 2:26 PM SODA FLAKER Body Mass Index 42.2 03/31/2024 2:26 PM SODA FLAKER Plan of Treatment Health Maintenance Due Date [...] Vaccine (2023-2 5 season) 2023 06/06/2020, 05/14/2020 INFLUENZA VACCINE (#1) 2024 , 05/18/2023, 05/07/2022, Additional history exists DIABETES HBA1C Q 6 MONTHS 01/22/20252024, 06/24/2024, 04/21/2024, Additional history exists DIABETES ANNUAL FOOT EXAM 01/24/2025 01/25/2024 COLORECTAL SCREENING 04/23/2027 04/23/2017, 03/19/19 12 Colorectal Cancer Screening 04/23/2027 DTAP/TDAP/TD VACCINES (2 - T d or Tdap) 05/17/2033 05/18/2023, 10/13/2013, 03/19/2013 Lung Cancer Screening Discontinued 09/07/2021 , 02/23/2020, 02/19/2019 ZOSTER VACCINE Completed 07/19/2022, 05/07/2022 Medical Devices Implanted Type Area Vacuum Evaporation Operator Device Identifier Shelf Expiration Date Model / Serial / Lot Infuse Protein Kit [id number] - [id number] Implanted:Qty: 1 on 05/05/2015 by Jay Marc MD at [facility] [employer] N/A: Back MEDTRONIC- SOFAMOR DANIELLEEK [id number] 04/18/2017 [id number] / / [id number] [facility] Infuse Protein Kit Med [id number] - [id number] Implanted:Qty: 1 on 04/20/2023 by Jay Marc MD at [facility] N/A: Spine Lumbar MEDTRONIC- SOFAMOR DANEK 2025 [id number] / / [id number] Sealant Duraseal 5ml - [id number] Implanted:Qty: 1 on 03/26/2024 by Jay Marc MD at [facility] N/A: Spine Thoracic INTEGRA LIFESCIENCE [employer] CROW 07/16/2024 / / [id number] Infuse Protein Kit Med [id number] - [id number] Implanted:Qty: 1 on 03/26/2024 by Jay Marc MD at [facility] N/A: Spine Thoracic MEDTRONIC- SOFAMOR DANEK [id number] 01/17/2025 [id number] / / [id number] Allgrft Spacer Acf 7mm 486682 - [id number] Implanted:Qty: 1 on 11/29/2016 by Jay Marc MD at [facility] N/A: Spine Cervical Anterior MUSCULOSKELETAL TRANSPLANT FOU 11/16/2020 [id number] / [id number] / Description:BOTH MTF SPACERS PROCESSED ON REQ# [id number] Allgrft Spacer Acf 7mm 459111 - [id number] Implanted:Qty: 1 on 11/29/2016 by Jay Marc MD at [facility] N/A: Spine Cervical Anterior MUSCULOSKELETAL TRANSPLANT FOU 12/06/2020 [id number] / [id number] 057 / Allgrft Vivigen Matrix 10ml Bl-1500-003 - [id number] Implanted:Qty: 1 on 07/13/2017 by Jay Marc MD at [facility] N/A: Spine Cervical Posterior LIFENET 01/05/2018 BL-1500-003 / [id number] / Description:REQ#[id number] Allgrft Vivigen Matrix 10ml Bl-1500-003 - [id number] Implanted:Qty: 1 on 07/13/2017 by Jay Mrac MD at [facility] Bone N/A: Spine Cervical Posterior LIFENET 01/03/2018 BL-1500-003 / [id number] / Hemostatic Surgiflo 8ml W/Thrombin 2994 - [id number] Implanted:Qty: 1 on 07/13/2017 by Jay Marc MD at [facility] Hemostati c N/A: Spine Cervical Posterior J&J- ETHICON INC 09/15/2018 2994 / / [id number] Hemostatic Surgifoam Sz12-7 1972 - [id number] Implanted:Qty: 1 on 04/20/2023 by Jay Marc MD at [facility] Hemostati c N/A: Spine Lumbar J&J- ETHICON ENDO[employer]SURGERY INC 12/13/2026 1972 / / [id number] Hemostatic Surgiflo 8ml W/ Thrombin 2994 - [id number] Implanted:Qty: 1 on 04/20/2023 by Jay Marc MD at [facility] Hemostati c N/A: Spine Lumbar J&J- [employer]ON INC [id number] 06/16/2024 2994 / / [id number] Hemostatic Surgiflo 8ml W/ Thrombin 2994 - [id number] Implanted:Qty: 1 on 04/20/2023 by Jay Marc MD at [facility] Hemostati c N/A: Spine Lumbar J&J- ETHICON INC [id number] 04/18/2024 2994 / / [id number] Hemostatic Surgiflo 8ml W/ Thrombin 2994 - [id number] Implanted:Qty: 1 on 04/20/2023 by Jay Marc MD at [facility] Hemostati c N/A: Spine Lumbar J&J- ETHICON INC [id number] 04/18/2024 2994 / / [id number] Hemostatic Surgiflo 8ml W/ Thrombin 2994 - [id number] Implanted:Qty: 1 on 04/20/2023 by Jay Marc MD at [facility] Hemostati c N/A: Spine Lumbar J&J- ETHICON INC [id number] 05/16/2024 2994 / / [id number] Hemostatic Surgiflo 8ml W/ Thrombin 2994 - [id number] Implanted:Qty: 1 on 04/20/2023 by Jay Marc MD at [facility] Hemostati c N/A: Spine Lumbar J&J- ETHICON INC [id number] 05/16/2024 2994 / / [id number] Hemostatic Surgiflo 8ml W/ Thrombin 2994 - [id number] Implanted:Qty: 4 on 03/26/2024 by Jay Marc MD at [facility] Hemostati c N/A: Spine Thoracic J&J- ETHICON INC [id number] 05/16/2025 2994 / / [id number] Hemostatic Surgiflo 8ml W/ Thrombin 2994 - [id number] Implanted:Qty: 3 on 03/26/2024 by Jay Marc MD at [facility] Hemostati c N/A: Spine Thoracic J&J- ETHICON INC [id number] 05/16/2025 2994 / / [id number] Hemostatic Surgiflo 8ml W/ Thrombin 2994 - [id number] Implanted:Qty: 2 on 03/26/2024 by Jay Marc MD at [facility] Hemostati c N/A: Spine Thoracic J&J- ETHICON INC [id number] 03/18/2025 2994 / / [id number] Hemostatic Surgifoam Sz100 1973 - [id number] Implanted:Qty: 1 on 03/26/2024 by Jay Marc MD at [facility] Hemostati c N/A: Spine Thoracic J&J- ETHICON ENDO-SURGERY INC [id number] 12/27/2027 1974 / / [id number] Hemostatic Surgifoam Sz12-7 1971 - [id number] Implanted:Qty: 1 on 03/26/2024 by Jay Marc MD at [facility] Hemostati c N/A: Spine Thoracic J&J- ETHICON ENDO-SURG[employer] INC [id number] 01/15/2028 1972 / / [id number] Hemostatic Surgiflo 8ml W/ Thrombin 2994 - [id number] Implanted:Qty: 1 on 03/26/2024 by Jay Marc MD at [facility] Hemostati c N/A: Spine Thoracic J&J- ETHICON INC [id number] 02/15/2025 2994 / / [id number] Plate Cslp Leonard Ang 66mm 450.175 - Sload 411, Sterilized 11/23/2016 Implanted:Qty: 1 on 11/29/2016 by Jay Marc MD at [facility] Plate N/A: Spine Cervical Anterior SYNTHES-STRATEC- SPINAL 450.175 / LOAD 411, STERILIZED 11/23/2016 / Description:ALL SYNTHES SPIN E HARDWARE PROCESSED ON REQ# [id number] 3.5mm Ti Curved Harsh 75mm Implanted:Qty: 2 on 07/13/2017 by Jay Marc MD at [facility] Harsh N/A: Spine Cervical Posterior 04.614.775 / / STERILIZED -07/13/17; VAC- 9; LOAD- [id number] Description:REQUISITION # 78 13668 Harsh Cdh Ccm 5.5x60mm Crvd [id number] - [id number] Implanted:Qty: 2 on 04/20/2023 by Jay Marc MD at [facility] Harsh N/A: Spine Lumbar MEDTRONIC- SOFAMOR DANEK [id number] / / LAOD 37, 04/17/23 100mm Medtronic Prebent Harsh Implanted:Qty: 2 on 03/26/2024 by Jay Marc MD at [facility] Harsh N/A: Spine Thoracic MEDTRONIC - COVIDIEN [id number] / / LOAD 13 STERILIZED 03/20/2024 Description:REQ [id number] Screw Xpnhead C Spine 4.20g47ab 487.056 - Sload 411, Sterilized 11/23/2016 Implanted:Qty: 8 on 11/29/2016 by Jay Marc MD at [facility] Screw N/A: Spine Cervical Anterior SYNTHES STRATEC 487.056 / LOAD 411, STERILIZED 11/23/2016 / Screw Lock C Spine 1.8mm 497.78 - Sload 411, Sterilized 11/23/2016 Implanted:Qty: 8 on 11/29/2016 by Jay Marc MD at [facility] Screw N/A: Spine Cervical Anterior SYNTHES-STRATEC- SPINAL 497.78 / LOAD 411, STERILIZED 11/23/2016 / Screw Canc Polyaxial 3.5x12mm 04.614.012 - Ssterilization 9 Load [id number] Implanted:Qty: 6 on 07/13/2017 by Jay Marc MD at [facility] Screw N/A: Spine Cervical Posterior SYNTHES-STRATEC- MAXIFACIAL 04.614.012 / STERILIZATI ON 9 LOAD [id number] / Description:REQUISITION # 78 [id number] Screw Canc Polyaxial 3.5x14mm 04.614.014 - Ssterilization 9 Load [id number] Implanted:Qty: 2 on 07/13/2017 by Jay Marc MD at [facility] Screw N/A: Spine Cervical Posterior SYNTHES-STRATEC- MAXIFACIAL 04.614.014 / STERILIZATI ON 9 LOAD [id number] / Screw Synapse Locking 04.614.508 - Ssterilization 9 Load [id number] Implanted:Qty: 8 on 07/13/2017 by Jay Marc MD at [facility] Screw N/A: Spine Cervical Posterior SYNTHES-STRATEC- SPINAL 04.614.508 / STERILIZATI ON 9 LOAD [id number] / 7.5mm X 45mm Screw Implanted:Qty: 2 on 04/20/2023 by Jay Marc MD at [facility] Screw N/A: Spine Lumbar MEDTRONIC- SOFAMOR DANEK 02/21/2028 [id number] / / [id number] 7.5mm X 45mm Screw Implanted:Qty: 3 on 04/20/2023 by Jay Marc MD at [facility] Screw N/A: Spine Lumbar MEDTRONIC- SOFAMOR DANEK 02/17/2028 [id number] / / [id number] 7.5mm X 45mm Screw Implanted:Qty: 1 on 04/20/2023 by Jay Marc MD at [facility] Screw N/A: Spine Lumbar MEDTRONIC- SOFAMOR DANEK 03/28/2028 [id number] / / [id number] Screw Solera 5.5/6.0 Breakoff 8925810 - [id number] Implanted:Qty: 6 on 04/20/2023 by Jay Marc MD at [facility] Screw N/A: Spine Lumbar MEDTRONIC- SOFAMOR DANEK [id number] / / LAOD 37, 04/17/23 Lane Coated Multi-Axial Screw For 5.5/6.0 Rods [id number] Implanted:Qty: 3 on 03/26/2024 by Jay Marc MD at [facility] Screw N/A: Spine Thoracic MEDTRONIC - COVIDIEN 08/30/2028 [id number] / / [id number] Lane Coated Multi-Axial Screw For 5.5/6.0 Rods [id number] Implanted:Qty: 1 on 03/26/2024 by Jay Marc MD at [facility] Screw N/A: Spine Thoracic MEDTRONIC - COVIDIEN 10/20/2027 [id number] / / [id number] Lane Coated Multi-Axial Screw For 5.5/6.0 Rods [id number] Implanted:Qty: 4 on 03/26/2024 by Jay Marc MD at [facility] Screw N/A: Spine Thoracic MEDTRONIC - COVIDIEN 01/06/2029 [id number] / / [id number] Screw Solera 5.5/6.0 Breakoff 4220947 - [id number] Implanted:Qty: 8 on 03/26/2024 by Jay Marc MD at [facility] Screw N/A: Spine Thoracic MEDTRONIC- SOFAMOR DANEK [id number] / / LOAD 13 STERILIZED 03/20/2024 Sealant Floseal W/ Adptr 10ml 4060774 - [id number] Implanted:Qty: 1 on 05/05/2015 by Jay Marc MD at [facility] Sealant N/A: Back BRITTON- BIOSCIENCE 07/16/2016 [id number] / / [id number] Sealant Floseal W/ Adptr 10ml 7705940 - [id number] Implanted:Qty: 1 on 05/05/2015 by Jay Marc MD at [facility] Sealant N/A: Back BRITTON- BIOSCIENCE [id number] 06/16/2016 2857416 / / [id number] Sealant Floseal 10ml 7691597 - [id number] Implanted:Qty: 2 on 11/29/2016 by Jay Marc MD at [facility] Sealant N/A: Spine Cervical Anterior BRITTON- BIOSCIENCE [id number] 01/20/2018 [id number] / / [id number] Log 22515 - Bladder Slings And Tapes - 1 - Sling Gynecare Tvt Exact Tvtrl Implanted:Qty: 1 on 04/18/2010 at [facility] Sling N/A: Urethra J&J- ETHICON INC 01/16/2011 TVTRL / / [id number] Allgrft Spcr Lmnry T-Plif 11mm 943720 - [id number] Implanted:Qty: 1 on 05/05/2015 by Jay Marc MD at [facility] Spacer N/A: Spine Lumbar MUSCULOSKELETAL TRANSPLANT FOU 09/30/2018 839800 / [id number] / Description:L5-S1This MTF sp acer was processed on requisition,[id number]. Bone Chips Canc 30ml [id number] - [id number] Implanted:Qty: 1 on 04/20/2023 by Jay Marc MD at [facility] Tissue N/A: Spine Lumbar ALLOSOURCE [id number] 11/20/2027 [id number] / [id number] / Bone Chips Canc 30ml [id number] - [id number] Implanted:Qty: 1 on 04/20/2023 by Jay Marc MD at [facility] Tissue N/A: Spine Lumbar ALLOSOURCE [id number] 11/06/2027 [id number] / [id number] / Explanted Type Area Vacuum Evaporation Operator Device Identifier Shelf Expiration Date Model / Serial / Lot Harsh Xpdm Crv W/Line 40mm - Stray Sterilized May 05, 2015,Load 26 Implanted:Qty: 2 on 05/05/2015 by Jay Marc MD at [facility] Explanted:Qty: 2 on 04/20/2023 by Jay Marc MD at [facility] Harsh N/A: Spine Lumbar J&J- DEPUY ORTHOPAED[employer] INC / TRAY STERILIZED Apr,LOAD 26 / Description:Depuy spinal zaheer dware was processed on requisition,[id number]. Screw Exp Poly 7x40mm 98 - Stray Sterilized May 05, 2015,Load 26 Implanted:Qty: 2 on 05/05/2015 by Jay Marc MD at [facility] Explanted:Qty: 2 on 04/20/2023 by Jay Marc MD at [facility] Screw N/A: Spine Lumbar J&J- DEPUY SPINE INC / TRAY STERILIZED Apr,LOAD 26 / Setscrew Inner - Stray Sterilized May 05, 2015,Load 26 Implanted:Qty: 4 on 05/05/2015 by Jay Marc MD at [facility] Explanted:Qty: 4 on 04/20/2023 by Jay Marc MD at [facility] Screw N/A: Spine Lumbar J&J- DEPUY SPINE INC / TRAY STERILIZED Apr,LOAD 26 / Screw Exp Poly 6x45mm [id number] - [id number] Implanted:Qty: 2 on 05/05/2015 by Jay Marc MD at [facility] Explanted:Qty: 2 on 04/20/2023 by Jay Marc MD at [facility] Screw N/A: Spine Lumbar J&J- DEPUY SPINE INC [id number] / / Description:Depuy spinal zaheer fantasma was processed on requisition,[id number]. Cervical Screw Explanted:Qty: 4 on 11/29/2016 by Jay Marc MD at [facility] Bilateral: Spine Cervical Anterior Description:unknown informat ion Cervical Plate Implanted:Qty: 1 Explanted:Qty: 1 on 11/29/2016 by Jay Marc MD at [facility] N/A: Spine Cervical Anterior Description:unknown informat ion Procedures Procedure Name Priority Date/Time Associated Diagnosis Comments MRI THORACIC W WO CONTRAST Routine 07/28/2024 2:41 PM CDT Postlaminectomy syndrome, thoracic region XR THORACIC SPINE 2 VW Routine 07/07/2024 12:49 PM CDT Spinal stenosis of thoracic region HEMOGLOBIN A1C Routine 04/06/2023 12:45 PM SODA FLAKER LIPID PANEL Routine 01/18/2020 3:14 PM SODA FLAKER MAMMO SCREEN BILAT W OR WO CAD [...] foraminal stenosis. DICTATION LOCATION: Location 1 - [facility] Narrative 07/28/2024 2:59 PM CDT EXAM: MRI THORACIC [...] foraminal stenosis. DICTATION LOCATION: Location 1 - [facility] us Jay Marc MD MR [...] * (ABNORMAL) HEMOGLOBIN A1C (04/06/2023 12:45 PM SODA FLAKER) HEMOGLOBIN A1C 8.0(H) <5.7 % 04/06/2023 1:59 PM SODA FLAKER [facility] EST. AVG GLUCOSE, A1C 183 mg/dL 04/06/2023 1:59 PM SODA FLAKER [facility] Blood Venipuncture / Unknown 04/06/2023 12:45 PM SODA FLAKER 04/06/2023 1:32 PM SODA FLAKER [facility] LABORATORY [facility] - 04/06/2023 1:59 PM SODA FLAKER HGB A1C INTERPRETATION NORMAL: <5.7% PRE-DIABETES: 5.7 - 6.4% DIABETES: 6.5% OR GREATER Jay Marc MD CHEMISTRY ORDERABLES Final [id number] 5 [place]ia [facility] [place] [address] * (ABNORMAL) LIPID PANEL (01/18/2020 3:14 PM SODA FLAKER) [facility] Signature CHOLESTEROL 170 <200 mg/dL 01/19/2020 6:25 AM [facility] TRIGLYCERIDE 254(H) <150 mg/dL 01/19/2020 6:25 AM [facility] HDL 36(L) 40 - 59 mg/dL 01/19/2020 6:25 AM [facility] LDL CALCULATED 83 <100 mg/dL 01/19/2020 6:25 AM [facility] NON-HDL CHOLESTEROL 134(H) <130 mg/dL 01/19/2020 6:25 AM [facility] Blood Venipuncture / Unknown 01/18/2020 3:14 PM SODA FLAKER 01/18/2020 3:25 PM SODA FLAKER [facility] - 01/19/2020 6:25 AM SODA FLAKER TOTAL CHOLESTEROL mg/dL Desirable <200 Borderline high [...] Reference Ranges for Lipid Panels (NCEP/AMA) . us Carlos Ventura MD CHEMISTRY ORDERABLES Fi nal Result [facility]# [id number] [address] [place] [address] * MAMMO SCREEN BILAT W OR WO CAD (04/15/2018) Anatomical Region Laterality Modality Breast Bilateral Mammography us Abstract Provider MAMMO ORDERABLES Edited Result - Final from Last 3 Months or Most Recently Relevant to Health Maintenance Insurance MEDICARE PART A AND B [facility] That{img} Medicare Part D RX [employer] (INTERNAL) [facility] Internal Plans Advance Directives For more information, please contact: [phone] * Full Code (Latest Code Status on [...] 6:21 PM 04/27/2023 11:58 AM Care Teams Environmental Economist Relationship Specialty Start Date End Date Naveed Fernandez MD PCP - General Internal Medicine 04/21/23 Flori Mcdonald Nurse Practitioner Pulmonology 04/06/23
--- OUTSIDE RECORDS SUMMARY | 2024-10-03 09:42 | XMS_ITS | Encounter Summary ---
Author Organization [facility] Address [address] [place] [address] Care Team Providers Care Family Practice Md Name Role Phone Naveed Fernandez MD Primary Care Provider Unavail able Encounter Details Date Type Department Care Team (Late st Contact Info) Description 09/30/2003 Outpatient [facility] Division of Neurology [address] [address] (Excluded Provider) [place] [address] [address] [place] [address] Social History Tobacco Use Types Packs/Day Years Used Date Smoking Tobacco: Never Assessed Comments Unknown Sex and Gender Information Value Date Recorded Sex Assigned at Female 01/14/2024 8:12 PM CDT Legal Sex Female 4:52 AM TRAFFIC SIGN ERECTION SUPERVISOR Gender Identity Female 01/14/2024 8:12 PM CDT Sexual Orientation Choose not to disclose 2023 8:12 PM CDT documented as of this encounter Plan of Treatment Not on file documented as of this encounter Visit Diagnoses Not on filedocumented in this encounter Additional Health Concerns Infection Onset Date Last Indicated Resolved Time R/O Respiratory 02/10/2024 02/10/2024 02/10/2024 8 :05 PM TRAFFIC SIGN ERECTION SUPERVISOR R/O Respiratory 03/31/2024 03/31/2024 03/31/2024 5 :16 PM TRAFFIC SIGN ERECTION SUPERVISOR COVID-19 03/31/2024 03/31/2024 04/20/2024 1:16 AM TRAFFIC SIGN ERECTION SUPERVISOR R/O C. diff 04/01/2024 04/01/2024 04/02/2024 3:00 AM TRAFFIC SIGN ERECTION SUPERVISOR documented as of this encounter Care Teams Family Practice Md Relationship Specialty Start Date End Date Naveed Fernandez MD PCP - General Internal Medicine 04/21/23 Flori Mcdonald Nurse Practitioner Pulmonology 04/06/23 documented as of this encounter
--- OUTSIDE RECORDS SUMMARY | 2024-10-03 09:42 | XMS_ITS | Encounter Summary ---
Author Organization [facility] Healthcare Address [facility] [place] [address] Care Team Providers Care Carpet Repairer Name Role Phone Chago Randolph MD Unavailable Zachary Hurley MD Unavailable Naveed Fernandez MD Primary Care Provider [phone] Osvaldo Feldman MD Unavailable Aminah Cheung OD Unavailable Flori Sotelo Unavailable Kostas Lr MD Unavailable Jay Marc MD Unavailable Bonita Cotto NP Unavailable Encounter Details Date Type Department Care Team (Late st Contact Info) Description 08/06/2024 Results Follow-Up [facility] Medical Group [facility] [address] [place] [address] Naveed Fernandez MD [address] [place] [address] DIABETES EYE EXAM Social History Tobacco Use [...] How often do you attend bahai or druze serv ices? 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 Gender Identity Female 05/05/2022 8:09 AM VERTICAL PUNCH OPERATOR Sexual Orientation Straight 11/04/2018 1: 20 PM CDT Occupation Industry Job Start Date Job End Date disabled Not on file Not on file Not on file documented as of this encounter Plan of Treatment Not on file documented as of this encounter Visit Diagnoses Not on filedocumented in this encounter Care Teams Carpet Repairer Relationship Specialty Start Date End Date Naveed Fernandez MD [address] [facility] [address] [place] [address] PCP - General Internal Medicine 10/14/21 [place] [address] [address] [facility] [address] [place] [address] Consulting Physician Endocrinology Diabetes & Metabolism 01/21/19 [place] [address] [address] [facility] [address] [place] [address] Referring Physician Psychiatry 01/21/19 [place] [address] [facility] [address] [place] [address] Consulting Physician Pain Management 09/25/22 Aminah Cheung OD [address] [place] [address] Consulting Physician Optometry 01/18/23 Flori Sotelo PA [address] [place] [address] Physician Plaster Pattern Caster Pulmonary Disease 01/26/24 Kostas Lr MD [address] [facility] [address] [place] [address] Consulting Physician Cardiology 02/22/24 Jay Marc MD [address] [facility] [address] [place] [address] Surgeon Orthopedic Surgery 04/21/24 Bonita Cotto NP 1 [place] [address] Nurse Practitioner Family Medicine 09/04/24 documented as of this encounter
--- OUTSIDE RECORDS SUMMARY | 2024-10-03 09:42 | XMS_ITS | Clinical Summary ---
Author Organization [facility] Address [facility] [place] [address] Care Team Providers Care Ward Aide Name Role Phone Unavailable Primary Care Provider [...]
--- OUTSIDE RECORDS SUMMARY | 2024-10-03 09:43 | XMS_ITS | Encounter Summary ---
Author Organization [facility] Healthcare Address [facility] [place] [address] Care Team Providers Care Back Facer Name Role Phone Chago Randolph MD Unavailable Zachary Hurley MD Unavailable Naveed Fernandez MD Primary Care Provider Osvaldo Feldman MD Unavailable Aminah Cheung OD Unavailable [phone] Flori Sotelo Unavailable Kostas Lr MD Unavailable Jay Marc MD Unavailable Bonita Cotto NP Unavailable Encounter Details Date Type Department Care Team (Late st Contact Info) Description 10/01/2024 Results Follow-Up [facility] Medical Group [facility] [address] [place] [address] Naveed Fernandez MD [address] [place], [place] [id number] T3, free, T4, free, TSH Social History [...] file 01/30/2020 How often do you attend islam or islam serv ices? 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 documented [facility] this encounter Plan of Treatment Not on file documented as of this encounter Visit Diagnoses Not on filedocumented in this encounter Care Teams Back Facer Relationship Specialty Start Date End Date Naveed Fernandez MD [address] [place] [address] PCP - General Internal Medicine 10/14/21 [place] [address] [address] [facility] [address] [place] [address] Consulting Physician Endocrinology Diabetes & Metabolism 01/21/19 [place] [address] [address] [facility] [address] [place] [address] Referring Physician Psychiatry 01/21/19 [place] [address] [facility] [address] [place] [address] Consulting Physician Pain Management 09/25/22 Aminah Cheung OD [address] [place] [address] Consulting Physician Optometry 01/18/23 Flori Sotelo PA [address] [place] [id number] Physician Aluminum Molding Machine Operator Pulmonary Disease 01/26/24 Kostas Lr MD [address] [place] [address] Consulting Physician Cardiology 02/22/24 Jay Marc MD [address] [place] [address] Surgeon Orthopedic Surgery 04/21/24 Bonita Cotto NP 1 [place] [address] Nurse Practitioner Family Medicine 09/04/24 documented as of this encounter
--- OUTSIDE RECORDS SUMMARY | 2024-10-03 09:43 | XMS_ITS | Encounter Summary ---
Author Organization [facility] Address [address] [place] [address] Care Team Providers Care Military Source Operations Specialist Name Role Phone Naveed Fernandez MD Primary Care Provider Unavail able Encounter Details Date Type Department Care Team (Late st Contact Info) Description 09/09/2003 Inpatient Historical HIS PATIENT IN A BED Franco Caraballo MD [address] [place] [address] FEMALE GENITAL SYMPTOMS NOS (Primary Dx) Social History Tobacco Use Types Packs/Day Years Used Date Smoking Tobacco: Never Assessed Comments Unknown Sex and Gender Information Value Date Recorded Sex Assigned at Female 01/14/2024 8:12 PM CDT Legal Sex Female 4:52 AM WORDPRESS DEVELOPER Gender Identity Female 01/14/2024 8:12 PM [...] Respiratory 02/10/2024 02/10/2024 02/10/2024 8 :05 PM WORDPRESS DEVELOPER R/O Respiratory 03/31/2024 03/31/2024 03/31/2024 5 :16 PM WORDPRESS DEVELOPER COVID-19 03/31/2024 03/31/2024 04/20/2024 1:16 AM WORDPRESS DEVELOPER R/O C. diff 04/01/2024 04/01/2024 04/02/2024 3:00 AM WORDPRESS DEVELOPER documented as of this encounter Care Teams Military Source Operations Specialist Relationship Specialty Start Date End Date Naveed Fernandez MD PCP - General Internal Medicine 04/21/23 Flori Mcdonald Nurse Practitioner Pulmonology 04/06/23 documented as of this encounter
--- OUTSIDE RECORDS SUMMARY | 2024-10-03 09:43 | XMS_ITS | Encounter Summary ---
Author Organization [facility] Healthcare Address [facility] [place] [address] Care Team Providers Care Bender Helper Name Role Phone Chago Randolph MD Unavailable Zachary Hurley MD Unavailable [phone] Naveed Fernandez MD Primary Care Provider Osvaldo Feldman MD Unavailable [phone] Aminah Cheung OD Unavailable Flori Sotelo Unavailable Kostas Lr MD Unavailable Jay Marc MD Unavailable Bonita Cotto NP Unavailable [phone] Encounter Details Date Type Department Care Team (Late st Contact Info) Description 09/01/2024 Results Follow-Up [facility] Medical Group [facility] [address] [place] [address] Naveed Fernandez MD [address] [place], [place] [id number] T3, free, T4, free, TSH Social History [...] How often do you attend islam or voodoo serv ices? Never 01/30/2020 Do you belong [...] on file Legal Sex Female 1:21 PM FARE ENFORCEMENT OFFICER Gender Identity Female 05/05/2022 8:09 AM FARE ENFORCEMENT OFFICER Sexual Orientation Straight 11/04/2018 1: 20 PM CDT Occupation Industry Job Start Date Job End Date disabled Not on file Not on file Not on file documented as of this encounter Plan of Treatment Not on file documented as of this encounter Visit Diagnoses Not on filedocumented in this encounter Care Teams Bender Helper Relationship Specialty Start Date End Date Naveed Fernandez MD [address] [place] [address] PCP - General Internal Medicine 10/14/21 [place] [address] [address] [facility] [address] [place] [address] Consulting Physician Endocrinology Diabetes & Metabolism 01/21/19 [place] [address] [address] [facility] [address] [place] [address] Referring Physician Psychiatry 01/21/19 [place] [address] [facility] [address] [place] [address] Consulting Physician Pain Management 09/25/22 Aminah Cheung OD [address] [place] [address] Consulting Physician Optometry 01/18/23 Flori Sotelo PA [address] [place] [address] Physician Scroll Machine Operator Pulmonary Disease 01/26/24 Kostas Lr MD [address] [place] [address] Consulting Physician Cardiology 02/22/24 Jay Marc MD [address] [place] [address] Surgeon Orthopedic Surgery 04/21/24 Bonita Cotto NP 1 [place] [address] Nurse Practitioner Family Medicine 09/04/24 documented as of this encounter
--- OUTSIDE RECORDS SUMMARY | 2024-10-03 09:43 | XMS_ITS | Clinical Summary ---
Author Organization [facility] Address [address] [place] [address] Care Team Providers Care Assembly Leader Name Role Phone Sadie Randolph MD Unavailable Zachary Hurley MD Unavailable Stephanie Cole MD Primary Care Provider [phone] Osvaldo Feldman MD Unavailable Aminah Cheung OD Unavailable [phone] Flori Sotelo Unavailable Kostas Lr MD Unavailable [phone] Jay Marc MD Unavailable Bonita Cotto NP Unavailable [phone] Allergies Active Allergy Reactions Criticality Noted Date Comments [place] Other (See comments) Low severe shakes Other Hives Medium 11/18/2017 Powdered gloves Medications calcium carb and citrate-vitD3 600 mg-12.5 mcg (500 unit) tablet extended release Take by mouth Active blood-glucose meter miscIndications:Ty pe 2 diabetes mellitus with hyperglycemia, without long-term current use of insulin (HCC) Use to check blood glucose once daily. 1 each 4 Active albuterol HFA (Ventolin HFA) 90 mcg/actuation inhalerIndications :Chronic Obstructive Pulmonary Disease Inhale 2 puffs every 4 (four) hours as needed for wheezing or shortness of breath 4 025 Active budesonide-glycopy r-formoterol (Breztri Aerosphere) 160-9-4.8 mcg/actuation inhaler Inhale 2 puffs 2 (two) times a day Active lancets (OneTouch Delica Plus Lancet) 30 gauge miscIndications:Ty pe 2 diabetes mellitus with hyperglycemia, without long-term current use of insulin (HCC) USE 1 TO CHECK GLUCOSE ONCE DAILY 100 each 4 Active QUEtiapine (SEROquel) 300 mg tablet Take 2 tablets (600 mg total) by mouth nightly Serial dose increases starting 11/27/2023. 4 Active cyclobenzaprine (FLEXERIL) 10 mg tablet Take 1 tablet (10 mg total) by mouth 3 (three) times a day as needed (Fibromyalgia) 4 Active LORazepam (ATIVAN) 1 mg tablet Take 1 tablet (1 mg total) by mouth 3 (three) times a day as needed for anxiety 4 Active blood glucose diagnostic (glucose blood) stripIndications:T ype 2 diabetes mellitus with hyperglycemia, without long-term current use of insulin (HCC) Use to test blood glucose once daily. 100 each 1 5 026 Active losartan (COZAAR) 50 mg tabletIndications: HTN (hypertension), benign Take 1 tablet (50 mg total) by mouth 2 (two) times a day 180 tablet 5 Active ergocalciferol (VITAMIN D) 50,000 unit capsuleIndications :Vitamin D deficiency Take 1 capsule (50,000 Units total) by mouth once a week 12 capsule 1 5 Active famciclovir (FAMVIR) 250 mg tabletIndications: Recurrent herpes simplex Take 1 tablet by mouth twice daily 180 tablet 1 5 Active HYDROcodone-acetam inophen (NORCO) 5-325 mg per tablet Take 1 tablet by mouth every 4 (four) hours as needed for pain 5 Active brexpiprazole (Rexulti) 2 mg tablet Take 1 tablet (2 mg total) by mouth daily 4 Active desvenlafaxine ER (PRISTIQ) 100 mg 24 hr tablet Take 1 tablet (100 mg total) by mouth daily 5 Active atorvastatin (LIPITOR) 40 mg tabletIndications: Hyperlipidemia associated with type 2 diabetes mellitus (HCC) Take 1 tablet by mouth once daily 90 tablet 1 5 Active metFORMIN (GLUCOPHAGE) 500 mg tabletIndications: Type 2 diabetes mellitus with hyperglycemia, without long-term current use of insulin (HCC) TAKE 1 TABLET BY MOUTH TWICE DAILY WITH MEALS 180 tablet 1 5 Active propranoloL (INDERAL) 60 mg tabletIndications: HTN (hypertension), benign TAKE 1 TABLET TWICE DAILY 180 tablet 5 Active polyethylene glycol (MIRALAX) 17 gram packetIndications: constipation Take 1 packet (17 g total) by mouth daily 5 Active UNABLE TO FIND Apply 1 each topically 2 (two) times a day Med Name: Aurelio Oil (Hayes butter, peppermint oil, cayenne pepper, cannabis). 5 Active gabapentin (NEURONTIN) 300 mg capsuleIndications :Chronic midline thoracic back pain Take 2 capsules (600 mg total) by mouth 3 (three) times a day 540 capsule 1 5 Active semaglutide (OZEMPIC) 0.25 mg or 0.5 mg(2 mg/1.5 mL) pen injector injection Inject 0.25 mg under the skin every 7 days 3 mL 5 Active nystatin creamIndications:C andidal intertrigo Apply topically 2 (two) times a day 30 g 1 5 026 Active levothyroxine (SYNTHROID) 150 mcg tabletIndications: Congenital hypothyroidism Take 1 tablet (150 mcg total) by mouth daily 30 tablet 1 5 Active Active Problems Problem Noted Date Diagnosed [...] 04/21/2024 Assessment & Plan (04/21/2024 8:29 PM CAR RENTAL AGENT): See hospital details above, testing and labs [...] management at [facility]. Recommend continuing cyclobenzaprine 10 mg 3 times daily as needed, gabapentin 600 mg 2-3 times daily (sometimes skips the middle of the day dose), and hydrocodone 5-325 mg Q 4 hours as needed. A recent MRI did not show any major pathology that explains her pain. Hopefully things will improve as time he lapses after her surgery. Assessment & Plan (04/21/2024 8:30 PM CAR RENTAL AGENT): Chronic, uncontrolled. See recent hospitalization for thoracic fusion as outlined above. Continue pain medicine and therapy as prescribed by Neurosurgery. Assessment & Plan (03/16/2024 6:36 PM CAR RENTAL AGENT): New symptom as of about two months ago, unremitting. She had evaluation in her spine surgeon's office and has either an arachnoid cyst or possibly a herniated disc in the midthoracic spine. Surgery is planned. She has already been cleared by Cardiology. Review of the record indicates recent elevation of WBC when she was at the [facility] ER with a bad headache. She eventually left without being seen due to the long wait. She denies running a fever. Other pertinent recent history includes an episode of pneumonia treated by Pulmonary Medicine at [facility]. Exam today is unremarkable. She will have [...] 138/82 Assessment & Plan (04/21/2024 8:21 PM CAR RENTAL AGENT): Chronic, at goal. BP stable in office today on current therapy. No acute findings on exam. BMP from 2 weeks ago unremarkable except for protein and liver enzymes. We will repeat today. Continue losartan and propranolol as prescribed. low salt diet. Assessment & Plan (03/07/2024 4:13 PM CAR RENTAL AGENT): Chronic, present for more than two years, currently controlled on losartan 50 mg twice daily and propranolol 20 mg every 12 hours. She denies chest pain or pressure. She has been cleared by Cardiology to have her thoracic spine surgery. Assessment & Plan (01/25/2024 1:45 PM CAR RENTAL AGENT): Chronic, present for more than two years, [...] 10/18/2022 Assessment & Plan (04/26/2022 4:37 PM CAR RENTAL AGENT): Blood pressure is in a good range [...] parameters Assessment & Plan (01/21/2019 11:39 AM CAR RENTAL AGENT): Clinically improved. Cont current meds. Hyperlipidemia associated [...] 05/19/2024 Assessment & Plan (01/25/2024 1:44 PM CAR RENTAL AGENT): Chronic, present for more than two years, status update needed. We ordered labs to be done at her convenience sometime next week. Follow up in six months. Assessment & Plan (07/12/2023 1:25 PM CDT): She is tolerating generic Lipitor. We will monitor with periodic labs. Assessment & Plan (04/12/2023 3:20 PM CAR RENTAL AGENT): She takes generic Lipitor, tolerating well. We [...] 10/18/2022 Assessment & Plan (04/26/2022 4:36 PM CAR RENTAL AGENT): She is on moderate dose generic Lipitor, [...] continued 7. Avoid alcohol sedatives and other SUSPECT ARTIST depression that may worsen sleep apnea and [...] BiPAP. Assessment & Plan (04/26/2022 4:46 PM CAR RENTAL AGENT): She is now on BiPAP. The mask [...] 150 mcg daily. Patient does have a crabber, advised patient to follow-up with crabber. She is taking a medication, Cytomel, which has a common side effect of diaphoresis. Encouraged patient to speak to her crabber about possibly discontinuing this medication. Class 3 [...] effects. Assessment & Plan (04/21/2024 8:22 PM CAR RENTAL AGENT): Chronic, uncontrolled. Down 9 lb in the last 6 weeks, BMI at 41.5. Exercise is limited due to chronic pain issues, she does not wish to discuss pharmacological treatment at this time. Encouraged continued heart healthy diet and exercise and portion control. Assessment & Plan (01/25/2024 1:41 PM CAR RENTAL AGENT): Chronic, present for many years, uncontrolled although there has been a slight decrease in her weight recently. We encouraged continued attention to her diet, and additional weight loss. Assessment & Plan (04/12/2023 3:21 PM CAR RENTAL AGENT): She put on quite a bit of weight due to inactivity. 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 We encouraged her efforts. Assessment & Plan (11/12/2022 3:16 PM CDT): We encouraged attention to her diet and significant weight loss. She is limited in activity level due to chronic pain. Assessment & Plan (05/11/2022 10:13 AM CAR RENTAL AGENT): She is on Ozempic for diabetes. This [...] recommended. Assessment & Plan (03/23/2021 2:09 PM CAR RENTAL AGENT): Weight reduction, daily exercise and dietary modifications recommended when feeling better. Assessment & Plan (03/17/2021 4:13 PM CAR RENTAL AGENT): Healthy, low carbohydrate lifestyle and exercise for 150min/week recommended Assessment & Plan (01/04/2021 6:01 PM CDT): Weight reduction, daily exercise and dietary modifications recommended. Assessment & Plan (08/06/2020 1:14 PM CDT): HPI: Condition is not at/near goal of BMI <25 A&P: Healthy, low carbohydrate lifestyle and exercise for 150min/week recommended Substitutions: Recommend tracking everything you put in your mouth on an sophie like Wonolo or [employer] carries a zero net carb bread [...] in much longer they will become mushy Roberts and/or coconut flour instead of regular flour [...] pork rinds For yogurt, try Two Good italian yogurt Use Pinterest for recipe ideas. Type in low carb... Assessment & Plan (06/10/2020 3:28 PM CDT): Healthy, low carbohydrate lifestyle and exercise for 150min/week recommended Hyperplastic polyp of sigmoid colon 01/01/2020 Overview (01/01/2020): Colonoscopy 04/23/2017 [facility] everywhere Chronic migraine without aur [...] endocrinology. Assessment & Plan (04/11/2021 2:40 PM CAR RENTAL AGENT): Check 25 OH vit D Adjust dose of Ergocalciferol accordingly Assessment & Plan (04/21/2020 4:14 PM CAR RENTAL AGENT): Continue Ergocalciferol, 50,000 international units weekly Assessment & Plan (02/05/2019 3:33 PM CAR RENTAL AGENT): Check 25 OH vit D Adjust dose [...] requested a referral to diabetes education at [facility] which will be arranged. Assessment & Plan (03/07/2024 4:15 PM CAR RENTAL AGENT): Chronic, present for many years, currently controlled with metformin 500 mg twice daily. The criterion for having surgery was a hemoglobin A1c less than 7.5%, and her recent value was 7.3%. She is working hard on her diet. Assessment & Plan (01/26/2024 3:20 PM CAR RENTAL AGENT): Chronic, present for about a year (previously [...] 08/16/2021 Assessment & Plan (04/24/2023 10:07 AM CAR RENTAL AGENT): She progressed from borderline diabetes to paige [...] covered Assessment & Plan (04/26/2022 4:51 PM CAR RENTAL AGENT): She does not check blood sugars at home. She is on Ozempic. She sees Dr. Randolph for follow-up of her endocrine conditions. Lab Results Component Value Date HGBA1C 6.7 02/06/2022 Assessment & Plan (02/06/2022 4:44 PM CAR RENTAL AGENT): Hba1c was Lab Results Component Value Date [...] mcg rescue inhaler q.4 hours prn and buiguaskzw-lpuowitpncimrb-geryqzjtwt 160-9-4.8 mcg inhaler twice daily. Assessment & Plan (01/25/2024 1:44 PM CAR RENTAL AGENT): Chronic, present for about 10 years, currently treated with albuterol metered- dose inhaler and vexgjkzcjl-yfeplbvsrxhjef-uzpcjeazgw maintenance inhaler. She also has a nebulizer used as needed. She has a pulmonary nurse practitioner at [facility] who sees her periodically. Continue same. Assessment & Plan (07/12/2023 1:24 PM CDT): She uses an inhaler as needed. She denies cough or shortness of breath. Lungs are clear and oxygen saturation is adequate. Continue same. Assessment & Plan (04/12/2023 3:18 PM CAR RENTAL AGENT): Symptoms are controlled with an albuterol inhaler and Symbicort. She managed to quit smoking which is great. We will see her back in three months. Assessment & Plan (04/26/2022 4:34 PM CAR RENTAL AGENT): She wheezes occasionally and has an albuterol [...] day. Assessment & Plan (01/25/2024 1:40 PM CAR RENTAL AGENT): Chronic, present for decades, currently uncontrolled despite taking tramadol as needed. Mostly she relies on acetaminophen or ibuprofen which he gets muzw-ieg-sxoshpw. She has follow ups with her back [...] excessive pain, but probably overdid it at [facility] in the pool the other day and [...] symptoms Assessment & Plan (04/11/2021 2:40 PM CAR RENTAL AGENT): Check TFTs Would recommend to increase LT3 to 5 mcg bid Will send rx after today labs Assessment & Plan (01/04/2021 6:01 PM CDT): Asymptomatic. Stable. Continue current prescription medications. Assessment & Plan (04/21/2020 4:16 PM CAR RENTAL AGENT): Continue Levothyroxine and Liothyronine, combination Importance of f taking the medication on an empty stomach, was explained again to the patient Assessment & Plan (12/19/2019 11:48 PM CDT): Continue levothyroxine Assessment & Plan (11/20/2019 2:29 AM CDT): Continue levothyroxine and Cytomel Assessment & Plan (02/05/2019 3:32 PM CAR RENTAL AGENT): Will check TSH and free T4 and [...] lacking. Assessment & Plan (01/25/2024 1:46 PM CAR RENTAL AGENT): Chronic, present for many years, currently reasonably well controlled on medications prescribed by her psychiatrist, Dr. Hurley, including quetiapine 600 mg at bedtime, lorazepam 1 mg 3 times daily as needed which she takes rarely, and desvenlafaxine 100 mg daily. Continue same and keep followups with psychiatry. Assessment & Plan (04/12/2023 3:21 PM CAR RENTAL AGENT): Her mood seems to be pretty stable [...] Barton. Assessment & Plan (05/11/2022 10:13 AM CAR RENTAL AGENT): She sees Dr. Hurley and is on [...] feasible. Assessment & Plan (04/21/2024 8:30 PM CAR RENTAL AGENT): Spent 5 minutes in discussion of tobacco cessation today and advised of health benefits. Assessment & Plan (07/14/2023 12:55 PM CDT): Unstable, worse. She quit smoking for her back surgery but unfortunately has resumed. We encouraged smoking cessation. Assessment & Plan (04/12/2023 3:21 PM CAR RENTAL AGENT): She quit smoking one month ago. I congratulated her on the accomplishment. She does have cravings, but is managing to abstain. Assessment & Plan (10/26/2022 1:58 PM CDT): Insurance would not approve recommended back surgery until she quit smoking and lost some weight. She is working on this but it is hard. Assessment & Plan (04/26/2022 4:50 PM CAR RENTAL AGENT): She is still smoking cigarettes and has no plans to quit. We nevertheless did encourage cessation. Assessment & Plan (07/07/2021 2:08 PM CDT): Advised patient to quit smoking. Assessment & Plan (01/04/2021 6:01 PM CDT): Advised patient to quit smoking. Pt declined stating that smoking is the only thing keeping her sane. Assessment & Plan (01/26/2020 8:13 PM CAR RENTAL AGENT): Advised patient to quit smoking. Assessment & [...] smoking. Assessment & Plan (01/21/2019 11:40 AM CAR RENTAL AGENT): Advised patient to quit. She states she's not ready to quit. Acute non intractable tension-type headache Resolved Problems Problem Noted Date Diagnosed Date Resolved Date Candidal skin infection 08/19/2024 060 05/2024 Assessment & Plan (08/19/2024 12:56 PM CDT): Depression with anxiety 04/30/202404/19 Morbid obesity with BMI of 40.0-44.9, adult 03/27/2024 04/21/2024 Community acquired pneumonia of right upper lobe of lung 01/18/2024 03/07/2024 Assessment & Plan (01/26/2024 2:52 PM CAR RENTAL AGENT): New problem, started about a week ago, slightly improved. She had a low-dose CT scan of her chest at [place] with her pulmonary nurse practitioner. A right [...] dis classd elswhr 05/17/2023 03/07/2024 Overview (03/07/2024): [place], details lacking. Furuncle of pubic region [...] ordered. Assessment & Plan (05/09/2022 10:46 AM CAR RENTAL AGENT): Acute problem, present times about 4 days [...] ear. Assessment & Plan (04/26/2022 4:50 PM CAR RENTAL AGENT): For the past year or so, she is noted an itchy feeling at the external auditory meatus bilaterally and in the surrounding external ear. Exam shows a probable seborrheic dermatitis. We will have her start some ketoconazole cream. If not responding, she will let us know. Influenza A 03/23/2021 04/25/2022 Overview (04/25/2022): Saw Aliya Huertas D.O. Assessment & Plan (03/23/2021 2:08 PM CAR RENTAL AGENT): Reiterated treatment plan. Encouraged patient to increase [...] Plan (08/17/2020 5:56 PM CDT): Prescriptions sent. Bowjc-so-bofujg exercises encouraged once pain level decreases. Return [...] in your mouth on an sophie like Wonolo or [employer] carries a zero net carb bread [...] in much longer they will become mushy Roberts and/or coconut flour instead of regular flour [...] pork rinds For yogurt, try Two Good italian yogurt Use Pinterest for recipe ideas. Type in low carb... Assessment & Plan (01/26/2020 8:12 PM CAR RENTAL AGENT): Weight reduction, daily exercise and dietary modifications [...] psychiatry Assessment & Plan (01/26/2020 8:10 PM CAR RENTAL AGENT): Clinically improved, managed by psychiatrist. Assessment & [...] recommended. Assessment & Plan (01/21/2019 11:41 AM CAR RENTAL AGENT): Worsening. Encouraged patient to decrease weight, increase [...] list. Assessment & Plan (01/26/2020 8:11 PM CAR RENTAL AGENT): Stable. Cont. Current meds. Managed by psychiatry. Assessment & Plan (12/19/2019 11:51 PM CDT): Continue home medications. Patient is on Xanax 2 mg t.i.d. p.r.n. which is not a new medication or dose for her. Assessment & Plan (11/20/2019 2:28 AM CDT): Continue p.r.n. Xanax Hypoxia 01/21/2019 Pneumonia due to infectious organism 01/21/2019 Encounters Date Type Department Care Team Description 10/01/2024 2:15 PM CDT Lab [facility] [address] [place] [address] Congenital hypothyroidism 10/01/2024 Results Follow-Up [facility] [place] [facility] [address] [place] [address] Stephanie Cole MD T3, free, T4, free, TSH 09/01/2024 1:15 PM CDT Lab [facility] [address] [place] [address] Congenital hypothyroidism 09/01/2024 Results Follow-Up [facility] [address] [place] [address] Stephanie Cole MD T3, free, T4, free, TSH 08/22/2024 Orders Only [facility] [address] [place] [address] Lopez Fraire, DELONTE Candidal intertrigo (Primary Dx) 08/22/2024 [facility]phone [facility] [address] [place] [address] Lopez Fraire, DELONTE 08/19/2024 12:30 PM CDT Office Visit [facility] [address] [place] [address] Lopez Fraire, DELONTE Candidal intertrigo (Primary Dx) 08/19/2024 Telephone [facility] [address] [place] [address] Stephanie Cole MD 08/06/2024 [facility] [address] [place] [address] Stephanie Cole MD DIABETES EYE EXAM 08/04/2024 Telephone [facility] [address] [place] [address] Stephanie Cole MD 07/31/2024 Telephone [facility] [address] [place] [address] Stephanie Cole MD [place] 07/30/2024 3:30 PM CDT Office Visit [facility] [address] [facility] [address] [place] [phone] Stephanie Cole MD Type 2 diabetes mellitus [...] Chronic obstructive pulmonary disease, unspecified COPD type ([facility]); Moderate obstructive sleep apnea; Congenital hypothyroidism 07/23/2024 Results Follow-Up [facility] [address] [facility] [address] [place] [address] Stephanie Cole MD Urinalysis reflex to microscopic, TSH, T4, free, Additional followed-up results: 4 07/22/2024 10:10 AM CDT Lab [address] [address] Hematuria, unspecified type; Adult hypothyroidism; Type 2 diabetes mellitus with hyperglycemia, without long-term current use of insulin (HCC) 07/18/2024 Telephone [facility] [address] [facility] [address] [place] [phone] Stephanie Cole MD Food is very salty, pt unsure why 07/18/2024 Results Follow-Up [facility] [address] [facility] [address] [place] [address] Stephanie Cole MD Urinalysis reflex to microscopic and culture Urine, clean voided 07/15/2024 Telephone [facility] [address] [facility] [address] [place] [address] Stephanie Cole MD 07/15/2024 Telephone [facility] [address] [facility] [address] [place] [phone] Stephanie Cole MD 07/15/2024 Results Follow-Up [facility] [address] [place] [address] Stephanie Cole MD SCAN - LABS 07/14/2024 Orders Only [facility] Information Management [address] [place] [address] Stephanie Cole MD 07/14/2024 Telephone [facility] [address] [place] [address] Stephanie Cole MD from Last 3 Months [...] [facility]. MAMMOGRAPHY 11/28/2022 Bilateral Negative, [facility] UPPER GI AIR CONTRAST W KUB 03/17/2015 Left FL UPPER GI AIR CONTRAST W KUB 03/05/2015 Left LUMBAR SPINE SURGERY 04/20/2023 N/A Revision lumbar laminectomy, middle third facetectomy, bilateral foraminotomy. Revision posterior lumbar fusion. Use of autograft bone graft augmented with Infuse/allograft material for purposes of fusion. Dr. Marc [facility]. Post-op wound dehiscence and infection managed with antibiotics and drainage/wound vac. ABDOMINAL SURGERY SKIN LESION EXCISION 09/12/2023 SKIN, LEFT CENTRAL FRONTAL SCALP, SHAVE BIOPSY, seborrheic keratosis, Adelina Hoover, MARCO-SUZE THORACIC SPINE SURGERY 03/26/2024 N/A Thoracic laminectomy and excisional biopsy of T5-T8 intradural mass Posterior thoracic fusion with instrumentation Use of autograft bone graft augmented with Infuse / allograft material for purposes of fusion. Jay Marc MD, [facility]. Pathology report: Arachnoid cyst, consistent with CARDIAC CATHETERIZATION 06/27/2024 N/A Procedure: LEFT HEART CATHETERIZATION WITH CORONARY ANGIOGRAPHY AND WITH OR WITHOUT LEFT VENTRICULOGRAM [id number]; Surgeon: Ran García MD; Location: [facility]; Service: Cardiovascular; Laterality: N/A; Medical devices from this surgery are in the Medical Devices section. DIABETES EYE EXAM 07/31/2024 Bilateral No diabetic retinopathy, Aminah Brady's, OD, [facility]. Developing cataracts noted. Medical History Medical History Date Comments Headache COPD (chronic obstructive pu lmonary disease) ([facility]) 2012 Hypothyroidism Abnormal Pap smear of cervix 2003 HPV (+) pap Depression 2010 Smoking Hypertension Anxiety 20 years Class 3 severe obesity due t o excess calories with serious comorbidity and body mass index (BMI) of 40.0 to 44.9 in adult 06/10/2020 Cigarette nicotine dependenc e without complication 03/19/1977 Major depressive disorder, r ecurrent episode, moderate with anxious distress ([facility]) 03/05/2017 Exact dates and details lack ing. Anxiety 08/11/2009 Severe episode of recurrent major depressive disorder, without psychotic features ([facility]) 08/30/2017 Managed by psychiatry Mononucleosis 1976 [...] OR EBL 300 ml >>OVERVIEW FOR SACROILIITIS ([facility]) WRITTEN ON 04/12/2023 6:06 AM BY STEPHANIE COLE MD Review of imaging dating to 2020 and subsequently does not support this diagnosis. Prediabetes 10/23/2017 Developed paige diabetes, late 2022-early 2023. 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 Spondylolisthesis of lumbar region 03/31/2015 Chronic Spondylosis without myelopat hy or radiculopathy, sacral and sacrococcygeal region 01/21/2019 Chronic Cough 11/02/2021 Saw Samantha Bui AGRICULTURAL RESEARCH ENGINEER, symptoms managed. Spinal stenosis in cervical region 11/29/2016 Chronic. History of surgery. Yeast vaginitis 11/29/2022 Post antibiotics . Diabetes mellitus (HCC) 2023 Sleep apnea 2020 Morbid obesity (CMS/HCC) (HCC) 06/10/2020 Proteus (mirabilis) [facility]morgani i) [facility] [place] [facility]. Community acquired pneumonia of [...] Marycruz Heart attack Mother's Brother Ted in [facility] pital waiting for heart cath Breast cancer [...] Ted Mother's Sister 1 Mother's Sister 2 Pegyeny Niece Other Sister 1 Cecily Flores Alive Sister 2 Cecily Social History Tobacco [...] file 01/30/2020 How often do you attend zoroastrianism or tenriism serv ices? Never 01/30/2020 Do you belong to any clubs o r organizations such as zoroastrianism groups, unions, fraternal or athletic groups, or [...] on file Legal Sex Female 1:21 PM CAR RENTAL AGENT Gender Identity Female 05/05/2022 8:09 AM CAR RENTAL AGENT Sexual Orientation Straight 11/04/2018 1: 20 PM [...] 08/19/2024 12:35 PM CDT Plan of Treatment Health Maintenance Due Date Last Done Comments DTaP/Tdap/Td Vaccine (2 - Td or Tdap) 10/14/2023 10/13/2013, 10/13/2013, 03/19/2013, Additional history exists Covid-19 Vaccine (2023-2 5 season) 2023 12/27/2021, 06/06/2020, 05/14/2020 Breast Cancer Screening-Mammogram 11/29/2023 11/28/2022, 09/07/2021, 09/07/2021, Additional history exists Influenza Vaccine (#1) 2024 , 12/18/2023, 05/07/2022, Additional history exists Lung Cancer Screening 01/18/2025 01/19/2024 , 11/28/2022, 09/07/2021, Additional history exists Hemoglobin A1C 01/22/2025 07/22/2024, 04/0 10/2024, 04/21/2024, Additional history exists Depression Screening 01/24/2025 01/25/2024, 10/26/2022, 10/26/2022, Additional history exists Foot Exam 01/24/2025 01/25/2024, 042 07/2023, 04/26/2022 Regular Well Visit/Exam 18-64 01/24/2025, 10/26/2022, 10/14/2021, Additional history exists Albumin Creatinine Ratio, Urine 06/24/2025 06/24/2024, 04/21/2024, 10/18/2022 Lipid Panel 06/24/2025 06/24/2024, 020 05/2024, 10/18/2022, Additional history exists eGFR 07/22/2025 07/22/2024, 041 , 06/24/2024, Additional history exists Dilated Eye [...] history exists Zoster Vaccine Completed 07/19/2022, 05/07/2022 Medical Devices Implanted Type Area Compensation Adjuster Device Identifier Shelf Expiration Date Model / Serial / Lot Capt'nSocial Angio-Seal Vip 6fr Closere Device [id number] - [id number] Implanted:Qty: 1 on 06/27/2024 by Ran García MD at [facility] [employer] 11/11/2024 [id number] / / [id number] Procedures Procedure Name Priority Date/Time Associated Diagnosis Comments TSH Routine 10/01/2024 2:21 PM CDT Congenital hypothyroidism T4, FREE Routine 10/01/2024 2:21 PM CDT Congenital hypothyroidism T3, FREE Routine 10/01/2024 2:21 PM CDT Congenital hypothyroidism TSH Routine 09/01/2024 1:19 PM CDT Congenital [...] MICROSCOPIC AND CULTURE Routine 07/14/2024 Gross hematuria LIPID PANEL Routine 06/24/2024 10:04 AM CDT Type 2 diabetes mellitus with hyperglycemia, without long-term current use of insulin (HCC) ALBUMIN CREATININE RATIO, URINE Routine 06/24/2024 10:04 AM CDT Type 2 diabetes mellitus with hyperglycemia, without long-term current use of insulin (HCC) LUNG CANCER SCREENING Routine 01/19/2024 MAMMOGRAPHY Routine 11/28/2022 HEPATITIS C ANTIBODY Routine 01/21/2019 11:48 AM CAR 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, [address] [place] [address], [place]., [address] Blood 10/01/2024 2:21 PM CDT 10/01/2024 7:26 PM CDT us Stephanie Cole MD LAB BLOOD ORDERABLES Final Re sult [facility]AR [facility] ([place]) 1 [facility] Department of Laboratories [place], [place] [id number] * TSH (10/01/2024 2:21 PM CDT) Thyroid Stimulating Hormone 0.87 0.30 - 4.20 mcIUnit/mL [facility] ([place]) Blood 10/01/2024 2:21 PM CDT 10/01/2024 3:10 PM CDT us Stephanie Cole MD LAB BLOOD ORDERABLES Final Re sult J[facility]AR [facility] ([place]) 1 [facility] [place] [address] * T4, free (10/01/2024 2:21 PM CDT) Free T4 1.23 0.90 - 1.70 ng/dL [facility] S[facility] ([place]) Blood 10/01/2024 2:21 PM CDT 10/01/2024 3:10 PM CDT Stephanie Cole MD LAB BLOOD ORDERABLES Final Re sult Performing Organization Address [facility]/ZIP Co de Phone Number JAMAR SING[facility] ([place]) [address] [place] [address] [place] [address] * (ABNORMAL) T3, free (09/01/2024 1:19 PM CDT) Free T3 1.7(L) 2.0 - 4.4 pg/mL Comment:Testing performed by : [facility], [address] [place] [address], [place]., [address] Blood 09/01/2024 1:19 PM CDT 09/01/2024 5:15 PM CDT Stephanie Cole MD LAB BLOOD ORDERABLES Final Re sult [facility] ([place]) 1 [facility] [place] [address] * (ABNORMAL) TSH (09/01/2024 1:19 PM CDT) Thyroid Stimulating Hormone 4.36(H) 0.30 - 4.20 mcIUnit/mL Blood 09/01/2024 1:19 PM CDT 09/01/2024 1:36 PM CDT Stephanie Cole MD LAB BLOOD ORDERABLES Final Re sult J[facility]AR SING[facility] ([place]) [address] [facility] [place] [address] * T4, free (09/01/2024 1:19 PM CDT) Free T4 1.25 0.90 - 1.70 ng/dL Blood 09/01/2024 1:19 PM CDT 09/01/2024 1:36 PM CDT Stephanie Cole MD LAB BLOOD ORDERABLES Final Re sult Performing Organization Address City/[facility]/ZIP Co de Phone Number JAMAR SING[facility] ([place]) [address] [facility] [place] [address] * DIABETES EYE EXAM (07/31/2024 4:13 PM [...] ORDERABLES Final Re sult Performing Organization Address City/[facility]/ZIP Co de Phone Number JAMAR SING[facility] ([place]) 1 [facility] Department [place] [address] * Urinalysis reflex to microscopic (07/22/2024 10:15 [...] tendency for uric acid stone formation. Source: [facility] [place] Current Interpretive Data was last revised on [...] ORDERABLES Final Re sult Performing Organization Address City/[facility]/ZIP Co de Phone Number [facility] ([place]) 1 [facility] [place] [address] * (ABNORMAL) T3, free (07/22/2024 10:15 AM CDT) Free T3 1.3(L) 2.0 - 4.4 pg/mL Comment:Testing performed by : [facility], [address] [place] [address], [place]., [address] Blood 07/22/2024 10:1 5 AM CDT 07/22/2024 2:22 PM CDT us Stephanie Cole MD LAB BLOOD ORDERABLES Final Re sult J[facility]AR S[facility] ([place]) 1 [facility] [place] [address] * (ABNORMAL) TSH (07/22/2024 10:15 AM CDT) Thyroid Stimulating Hormone 7.55(H) 0.30 - 4.20 mcIUnit/mL Blood 07/22/2024 10:1 5 AM CDT 07/22/2024 10:29 AM CDT us Stephanie Cole MD LAB BLOOD ORDERABLES Final Re sult [facility] ([place]) 1 [facility] [place] [address] * T4, free (07/22/2024 10:15 AM CDT) Free T4 1.14 0.90 - 1.70 ng/dL Blood 07/22/2024 10:1 5 AM CDT 07/22/2024 10:29 AM CDT us Stephanie Cole MD LAB BLOOD ORDERABLES Final Re sult [facility] ([place]) 1 [facility] [place] [address] * (ABNORMAL) Hemoglobin A1c (07/22/2024 10:15 AM CDT) Hgb A1C 7.9(H) 4.0 - 5.6 % Estimated Average Glucose 180 mg/dL [facility] ([place]) Comment: The ADA recommends reporting an estimated Average Glucose (eAG) with all Hemoglobin A1c results using the equation derived from a study of 507 normal and diabetic adults. Minority populations were underrepresented and children were not included. (Diabetes Care 31:5570-3733, 2008). The eAG is not equivalent to a fasting glucose. Blood 07/22/2024 10:1 5 AM CDT 07/22/2024 10:29 AM CDT Stephanie Cole MD LAB BLOOD ORDERABLES Final Re sult [facility] ([place]) 1 [facility] Department [place] [address] * (ABNORMAL) Comprehensive metabolic panel (07/22/2024 10:15 AM CDT) Sodium 137 135 - 145 mmol/L Potassium, pl 4.4 3.3 - 4.9 mmol/L [facility] ([place]) Chloride 99 97 - 110 mmol/L [facility] ([place]) CO2 26 22 - 32 mmol/L [facility] ([place]) Anion gap 12 2 - 15 mmol/L [facility] ([place]) BUN 12 6 - 25 mg/dL [facility] ([place]) Creatinine 0.79 0.60 - 1.10 mg/dL [facility] ([place]) Glucose 147 70 - 199 mg/dL [facility] ([place]) Comment: Interpretive Data Fasting glucose [...] ([place]) AST 77(H) 10 - 45 Units/L [facility] ([place]) Blood 07/22/2024 10:1 5 AM CDT 07/22/2024 10:29 AM CDT us Stephanie Cole MD LAB BLOOD ORDERABLES Final Re sult [facility] ([place]) 1 [facility] Department [place] [address] * SCAN - LABS (07/14/2024 3:26 PM CDT) us Stephanie Cole MD Final Result * Urinalysis reflex to microscopic and culture Urine, clean voided (07/14/2024) Urine, clean voided us Stephanie Cole MD LAB MICROBIOLOGY - GENERAL OR DERABLES Edited Result - Final EXTERNAL LAB * Albumin Creatinine Ratio, Urine (06/24/2024 10:04 AM CDT) Albumin Ur <12.0 mg/L Comment: Interpretive Data No reference range established. Current interpretive data was last revised 2018. Testing performed by: [facility], [address] [place] [address], [place]., [address] Creatinine Ur 61.5 mg/dL [facility] ([place]) Comment: Interpretive Data No reference range established. Current interpretive data was last revised 2018. Testing performed by: [facility], [address] [place] [address]., [address] Albumin Creatinine Ratio, Ur <20 1 - 29 mg/g [facility] ([place]) Comment:Testing performed by : [facility], [address] [place] [address]., [address] Urine 06/24/2024 10:0 4 AM CDT 06/24/2024 2:22 PM CDT us Stephanie Cole MD LAB URINE ORDERABLES Final Re sult [facility] ([place]) 1 [facility] Department [place] [address] * (ABNORMAL) Lipid panel (06/24/2024 10:04 AM [...] last revised on 2017. Chol/HDL ratio 3 GARRYKASEY Lili SINGH ([place]) Blood 06/24/2024 10:0 4 AM CDT 06/24/2024 10:52 AM CDT us Stephanie Cole MD LAB BLOOD ORDERABLES Final Re sult Performing Organization Address City/[facility] Co de Phone Number JAMAR FRANCISCO ([place]) 1 [facility] [place] [address] * LUNG CANCER SCREENING (01/19/2024) Scribed Lung Cancer Screening Normal Impressions Stephanie Cole MD - 01/19/2024 Low-dose CT chest 01/19/2024 at [facility] negative for suspicious nodules. Narrative Stephanie Cole MD - 01/19/2024 See scanned report. us Flori [facility] HE[employer] MAINTENANCE Fin al Result * MAMMOGRAPHY (11/28/2022) Mammography Normal Impressions Stephanie Cole MD - 11/28/2022 [facility] Narrative Stephanie Cole MD - 11/28/2022 See scanned report. us Betzaida Subramanian AGRICULTURAL RESEARCH ENGINEER HEALTH MAINTENANCE Final Result * Hepatitis C antibody (01/21/2019 11:48 AM CAR RENTAL AGENT) Hep C Ab Negative Negative GARRYDEL SING[facility] ([place]) Comment:Testing performed by : [facility], [address] [place] [address], [place]., [address] Blood specimen (specimen) 01/21/2019 11:48 AM CAR RENTAL AGENT 01/21/2019 7:22 PM CAR RENTAL AGENT us Aliya Huertas DO LAB MICROBIOLOGY - GENERAL ORDERABLES Final Result Performing Organization Address City/[facility]/ZIP Co de Phone Number [facility] ([place]) 1 [facility] Department of Laboratories [place] [id number] * COLONOSCOPY (04/23/2017) Colonoscopy Abnormal us Historical Provider MD HEALTH MAINTENANCE Final Result from Last 3 Months or Most Recently Relevant to Health Maintenance Insurance AETNA [facility] MEDICARE MEDICARE [facility] MEDICARE BLUE CROSS MEDICARE SUPPLEMENT Advance Directives For more information, please contact: [phone] * Full Code (Latest Code Status on File) Date Activated Date Inactivated Comments 06/27/2024 1:07 PM 06/27/2024 7:17 PM * Full Code Date Activated Date Inactivated Comments 12/19/2019 5:44 PM 12/21/2019 2:39 PM * Full Code Date Activated Date Inactivated Comments 11/19/2019 8:23 PM 11/21/2019 2:56 PM * Full Code Date Activated Date Inactivated Comments 11/21/2018 5:09 PM 11/24/2018 6:00 PM Care Teams Assembly Leader Relationship Specialty Start Date End Date Stephanie Cole MD [address] [place] [address] PCP - General Internal Medicine 10/14/21 [place] [address] [facility] [address] [place] [address] Consulting Physician Endocrinology Diabetes & Metabolism 01/21/19 [place] [address] [facility] [address] [place] [address] Referring Physician Psychiatry 01/21/19 [place] [address] [facility] [address] [place] [address] Consulting Physician Pain Management 09/25/22 Aminah Cheung OD [address] [place] [address] Consulting Physician Optometry 01/18/23 Flori Sotelo PA [address] [place] [address] Physician Regulatory Compliance Director Pulmonary Disease 01/26/24 Kostas Lr MD [address] [facility] [address] [place] [address] Consulting Physician Cardiology 02/22/24 Jay Marc MD [address] [facility] [address] [place] [id number] Surgeon Orthopedic Surgery 04/21/24 Bonita Cotto NP [address] [place] [id number] Nurse Practitioner Family Medicine 09/04/24
--- OUTSIDE RECORDS SUMMARY | 2024-10-03 09:43 | XMS_ITS | Referral Summary ---
Author Organization [facility] Address [address] [place] [address] Care Team Providers Care Computational Linguist Name Role Phone Sadie Randolph MD Unavailable Zachary Hurley MD Unavailable [phone] Stephanie Cole MD Primary Care Provider Osvaldo Feldman MD Unavailable Aminah Cheung OD Unavailable [phone] Flori Sotelo Unavailable [phone] Kostas Lr MD Unavailable [phone] Jay Marc MD Unavailable Bonita Cotto NP Unavailable Encounters Date Type Department Care Team Description 10/01/2024 Results Follow-Up [facility] [address] [place] [address] Stephanie Cole MD T3, free, T4, free, TSH 10/01/2024 2:15 PM CDT Lab [address] [address] Congenital hypothyroidism 09/01/2024 Results Follow-Up [facility] [address] [place] [address] Stephanie Cole MD T3, free, T4, free, TSH 09/01/2024 1:15 PM CDT Lab [address] [address] Congenital hypothyroidism 08/22/2024 [facility] [address] [place] [address] Lopez Fraire, DELONTE Candidal intertrigo (Primary Dx) 08/22/2024 Telephone [facility] [address] [place] [address] Lopez Fraire NP 08/19/2024 12:30 PM CDT [facility] [address] [facility] [address] [place] [phone] Lopez Fraire NP Candidal intertrigo (Primary Dx) 08/19/2024 Telephone [facility] [address] [facility] [address] [place] [phone] Stephanie Cole MD 08/06/2024 Results Follow-Up [facility] [address] [facility] [address] [place] [phone] Stephanie Cole MD DIABETES EYE EXAM 08/04/2024 Telephone [facility] [address] [facility] [address] [place] [address] Stephanie Cole MD 07/31/2024 Telephone [facility] [address] [place] [address] Stephanie Cole MD Wegojuan r 07/30/2024 3:30 PM CDT Office Visit [facility] [address] [place] [address] Stephanie Cole MD Type 2 diabetes mellitus [...] sleep apnea; Congenital hypothyroidism 07/23/2024 Results Follow-Up [facility] [address] [facility] [address] [place] [phone] Stephanie Cole MD Urinalysis reflex to microscopic, TSH, T4, free, Additional followed-up results: 4 07/22/2024 10:10 AM CDT Lab [address] [address] Hematuria, unspecified type; Adult hypothyroidism; Type 2 diabetes mellitus with hyperglycemia, without long-term current use of insulin ([facility]) 07/18/2024 Telephone [facility] [address] [facility] [address] [place] [address] Stephanie Cole MD Food is very salty, pt unsure why 07/18/2024 Results Follow-Up [facility] 1 [facility] [address] [place] [phone] Stephanie Cole MD Urinalysis reflex to microscopic and culture Urine, clean voided 07/15/2024 Telephone [facility] 1 [facility] [address] [place] [phone] Stephanie Cole MD 07/15/2024 Telephone [facility] [address] [facility] [address] [place] [address] Stephanie Cole MD 07/15/2024 Results Follow-Up [facility] [address] [facility] [address] [place] [address] Stephanie Cole MD SCAN - LABS 07/14/2024 Orders Only [facility] Health Information Management [address] [place] [address] Stephanie Cole MD 07/14/2024 Telephone [facility] [place] [facility] [address] [place] [address] Stephanie Cole MD from Last 3 Months Allergies Active Allergy Reactions Criticality Noted Date Comments [place] Other (See comments) Low severe shakes Other [...] 04/21/2024 Assessment & Plan (04/21/2024 8:29 PM DIRECTOR OF RESEARCH CENTER): See hospital details above, testing and labs [...] pain. She is in pain management at [facility]. Recommend continuing cyclobenzaprine 10 mg 3 times daily as needed, gabapentin 600 mg 2-3 times daily (sometimes skips the middle of the day dose), and hydrocodone 5-325 mg Q 4 hours as needed. A recent MRI did not show any major pathology that explains her pain. Hopefully things will improve as time he lapses after her surgery. Assessment & Plan (04/21/2024 8:30 PM DIRECTOR OF RESEARCH CENTER): Chronic, uncontrolled. See recent hospitalization for thoracic fusion as outlined above. Continue pain medicine and therapy as prescribed by Neurosurgery. Assessment & Plan (03/16/2024 6:36 PM DIRECTOR OF RESEARCH CENTER): New symptom as of about two months ago, unremitting. She had evaluation in her spine surgeon's office and has either an arachnoid cyst or possibly a herniated disc in the midthoracic spine. Surgery is planned. She has already been cleared by Cardiology. Review of the record indicates recent elevation of WBC when she was at the [facility] ER with a bad headache. She eventually left without being seen due to the long wait. She denies running a fever. Other pertinent recent history includes an episode of pneumonia treated by Pulmonary Medicine at [facility]. Exam today is unremarkable. She will have [...] 138/82 Assessment & Plan (04/21/2024 8:21 PM DIRECTOR OF RESEARCH CENTER): Chronic, at goal. BP stable in office today on current therapy. No acute findings on exam. BMP from 2 weeks ago unremarkable except for protein and liver enzymes. We will repeat today. Continue losartan and propranolol as prescribed. low salt diet. Assessment & Plan (03/07/2024 4:13 PM DIRECTOR OF RESEARCH CENTER): Chronic, present for more than two years, currently controlled on losartan 50 mg twice daily and propranolol 20 mg every 12 hours. She denies chest pain or pressure. She has been cleared by Cardiology to have her thoracic spine surgery. Assessment & Plan (01/25/2024 1:45 PM DIRECTOR OF RESEARCH CENTER): Chronic, present for more than two years, [...] 10/18/2022 Assessment & Plan (04/26/2022 4:37 PM DIRECTOR OF RESEARCH CENTER): Blood pressure is in a good range [...] parameters Assessment & Plan (01/21/2019 11:39 AM DIRECTOR OF RESEARCH CENTER): Clinically improved. Cont current meds. Hyperlipidemia associated [...] 05/19/2024 Assessment & Plan (01/25/2024 1:44 PM DIRECTOR OF RESEARCH CENTER): Chronic, present for more than two years, status update needed. We ordered labs to be done at her convenience sometime next week. Follow up in six months. Assessment & Plan (07/12/2023 1:25 PM CDT): She is tolerating generic Lipitor. We will monitor with periodic labs. Assessment & Plan (04/12/2023 3:20 PM DIRECTOR OF RESEARCH CENTER): She takes generic Lipitor, tolerating well. We [...] 10/18/2022 Assessment & Plan (04/26/2022 4:36 PM DIRECTOR OF RESEARCH CENTER): She is on moderate dose generic Lipitor, [...] continued 7. Avoid alcohol sedatives and other CIRCUIT DESIGNER depression that may worsen sleep apnea and [...] BiPAP. Assessment & Plan (04/26/2022 4:46 PM DIRECTOR OF RESEARCH CENTER): She is now on BiPAP. The mask [...] 150 mcg daily. 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 She is taking a medication, Cytomel, which has a common side effect of diaphoresis. Encouraged patient to speak to her launching pad mechanic about possibly discontinuing this medication. Class 3 [...] effects. Assessment & Plan (04/21/2024 8:22 PM DIRECTOR OF RESEARCH CENTER): Chronic, uncontrolled. Down 9 lb in the last 6 weeks, BMI at 41.5. Exercise is limited due to chronic pain issues, she does not wish to discuss pharmacological treatment at this time. Encouraged continued heart healthy diet and exercise and portion control. Assessment & Plan (01/25/2024 1:41 PM DIRECTOR OF RESEARCH CENTER): Chronic, present for many years, uncontrolled although there has been a slight decrease in her weight recently. We encouraged continued attention to her diet, and additional weight loss. Assessment & Plan (04/12/2023 3:21 PM DIRECTOR OF RESEARCH CENTER): She put on quite a bit of weight due to inactivity. 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 We encouraged her efforts. Assessment & Plan (11/12/2022 3:16 PM CDT): We encouraged attention to her diet and significant weight loss. She is limited in activity level due to chronic pain. Assessment & Plan (05/11/2022 10:13 AM DIRECTOR OF RESEARCH CENTER): She is on Ozempic for diabetes. This [...] recommended. Assessment & Plan (03/23/2021 2:09 PM DIRECTOR OF RESEARCH CENTER): Weight reduction, daily exercise and dietary modifications recommended when feeling better. Assessment & Plan (03/17/2021 4:13 PM DIRECTOR OF RESEARCH CENTER): Healthy, low carbohydrate lifestyle and exercise for 150min/week recommended Assessment & Plan (01/04/2021 6:01 PM CDT): Weight reduction, daily exercise and dietary modifications recommended. Assessment & Plan (08/06/2020 1:14 PM CDT): HPI: Condition is not at/near goal of BMI <25 A&P: Healthy, low carbohydrate lifestyle and exercise for 150min/week recommended Substitutions: Recommend tracking everything you put in your mouth on an sophie like Pigeonly or [employer] carries a zero net carb bread [...] in much longer they will become mushy [employer] and/or coconut flour instead of regular flour [...] pork rinds For yogurt, try Two Good uzbek yogurt Use Pinterest for recipe ideas. Type in low carb... Assessment & Plan (06/10/2020 3:28 PM CDT): Healthy, low carbohydrate lifestyle and exercise for 150min/week recommended Hyperplastic polyp of sigmoid colon 01/01/2020 Overview (01/01/2020): Colonoscopy 04/23/2017 [facility] everywhere Chronic migraine without aur [...] endocrinology. Assessment & Plan (04/11/2021 2:40 PM DIRECTOR OF RESEARCH CENTER): Check 25 OH vit D Adjust dose of Ergocalciferol accordingly Assessment & Plan (04/21/2020 4:14 PM DIRECTOR OF RESEARCH CENTER): Continue Ergocalciferol, 50,000 international units weekly Assessment & Plan (02/05/2019 3:33 PM DIRECTOR OF RESEARCH CENTER): Check 25 OH vit D Adjust dose [...] requested a referral to diabetes education at [facility] which will be arranged. Assessment & Plan (03/07/2024 4:15 PM DIRECTOR OF RESEARCH CENTER): Chronic, present for many years, currently controlled with metformin 500 mg twice daily. The criterion for having surgery was a hemoglobin A1c less than 7.5%, and her recent value was 7.3%. She is working hard on her diet. Assessment & Plan (01/26/2024 3:20 PM DIRECTOR OF RESEARCH CENTER): Chronic, present for about a year (previously [...] 08/16/2021 Assessment & Plan (04/24/2023 10:07 AM DIRECTOR OF RESEARCH CENTER): She progressed from borderline diabetes to paige [...] covered Assessment & Plan (04/26/2022 4:51 PM DIRECTOR OF RESEARCH CENTER): She does not check blood sugars at home. She is on Ozempic. She sees Dr. Randolph for follow-up of her endocrine conditions. Lab Results Component Value Date HGBA1C 6.7 02/06/2022 Assessment & Plan (02/06/2022 4:44 PM DIRECTOR OF RESEARCH CENTER): Hba1c was Lab Results Component Value Date [...] mcg rescue inhaler q.4 hours prn and jzfrguylzt-zywbclyzwgdbzm-rlhzsnukev 160-9-4.8 mcg inhaler twice daily. Assessment & Plan (01/25/2024 1:44 PM DIRECTOR OF RESEARCH CENTER): Chronic, present for about 10 years, currently treated with albuterol metered- dose inhaler and qpcuehdtpz-clddehtsuizkyl-sadmfsuhrj maintenance inhaler. She also has a nebulizer used as needed. She has a pulmonary nurse practitioner at [facility] who sees her periodically. Continue same. Assessment & Plan (07/12/2023 1:24 PM CDT): She uses an inhaler as needed. She denies cough or shortness of breath. Lungs are clear and oxygen saturation is adequate. Continue same. Assessment & Plan (04/12/2023 3:18 PM DIRECTOR OF RESEARCH CENTER): Symptoms are controlled with an albuterol inhaler and Symbicort. She managed to quit smoking which is great. We will see her back in three months. Assessment & Plan (04/26/2022 4:34 PM DIRECTOR OF RESEARCH CENTER): She wheezes occasionally and has an albuterol [...] day. Assessment & Plan (01/25/2024 1:40 PM DIRECTOR OF RESEARCH CENTER): Chronic, present for decades, currently uncontrolled despite taking tramadol as needed. Mostly she relies on acetaminophen or ibuprofen which he gets ccom-ktc-tdgelnf. She has follow ups with her back [...] excessive pain, but probably overdid it at [place] in the pool the other day and [...] symptoms Assessment & Plan (04/11/2021 2:40 PM DIRECTOR OF RESEARCH CENTER): Check TFTs Would recommend to increase LT3 to 5 mcg bid Will send rx after today labs Assessment & Plan (01/04/2021 6:01 PM CDT): Asymptomatic. Stable. Continue current prescription medications. Assessment & Plan (04/21/2020 4:16 PM DIRECTOR OF RESEARCH CENTER): Continue Levothyroxine and Liothyronine, combination Importance of f taking the medication on an empty stomach, was explained again to the patient Assessment & Plan (12/19/2019 11:48 PM CDT): Continue levothyroxine Assessment & Plan (11/20/2019 2:29 AM CDT): Continue levothyroxine and Cytomel Assessment & Plan (02/05/2019 3:32 PM DIRECTOR OF RESEARCH CENTER): Will check TSH and free T4 and [...] lacking. Assessment & Plan (01/25/2024 1:46 PM DIRECTOR OF RESEARCH CENTER): Chronic, present for many years, currently reasonably well controlled on medications prescribed by her psychiatrist, Dr. Hurley, including quetiapine 600 mg at bedtime, lorazepam 1 mg 3 times daily as needed which she takes rarely, and desvenlafaxine 100 mg daily. Continue same and keep followups with psychiatry. Assessment & Plan (04/12/2023 3:21 PM DIRECTOR OF RESEARCH CENTER): Her mood seems to be pretty stable [...] Barton. Assessment & Plan (05/11/2022 10:13 AM DIRECTOR OF RESEARCH CENTER): She sees Dr. Hurley and is on [...] feasible. Assessment & Plan (04/21/2024 8:30 PM DIRECTOR OF RESEARCH CENTER): Spent 5 minutes in discussion of tobacco cessation today and advised of health benefits. Assessment & Plan (07/14/2023 12:55 PM CDT): Unstable, worse. She quit smoking for her back surgery but unfortunately has resumed. We encouraged smoking cessation. Assessment & Plan (04/12/2023 3:21 PM DIRECTOR OF RESEARCH CENTER): She quit smoking one month ago. I congratulated her on the accomplishment. She does have cravings, but is managing to abstain. Assessment & Plan (10/26/2022 1:58 PM CDT): Insurance would not approve recommended back surgery until she quit smoking and lost some weight. She is working on this but it is hard. Assessment & Plan (04/26/2022 4:50 PM DIRECTOR OF RESEARCH CENTER): She is still smoking cigarettes and has no plans to quit. We nevertheless did encourage cessation. Assessment & Plan (07/07/2021 2:08 PM CDT): Advised patient to quit smoking. Assessment & Plan (01/04/2021 6:01 PM CDT): Advised patient to quit smoking. Pt declined stating that smoking is the only thing keeping her sane. Assessment & Plan (01/26/2020 8:13 PM DIRECTOR OF RESEARCH CENTER): Advised patient to quit smoking. Assessment & [...] smoking. Assessment & Plan (01/21/2019 11:40 AM DIRECTOR OF RESEARCH CENTER): Advised patient to quit. She states she's not ready to quit. Acute non intractable tension-type headache Resolved Problems Problem Noted Date Diagnosed Date Resolved Date Candidal skin infection 08/19/2024 0605/2024 Assessment & Plan (08/19/2024 12:56 PM CDT): Depression with anxiety 04/30/202404/19 Morbid obesity with BMI of 40.0-44.9, adult 03/27/2024 04/21/2024 Community acquired pneumonia of right upper lobe of lung 01/18/2024 03/07/2024 Assessment & Plan (01/26/2024 2:52 PM DIRECTOR OF RESEARCH CENTER): New problem, started about a week ago, slightly improved. She had a low-dose CT scan of her chest at [facility] with her pulmonary nurse practitioner. A right [...] Proteus (mirabilis) (morgani i) causing dis classd [facility] 05/17/2023 03/07/2024 Overview (03/07/2024): [place], details lacking. Furuncle of pubic region [...] ordered. Assessment & Plan (05/09/2022 10:46 AM DIRECTOR OF RESEARCH CENTER): Acute problem, present times about 4 days [...] ear. Assessment & Plan (04/26/2022 4:50 PM DIRECTOR OF RESEARCH CENTER): For the past year or so, she is noted an itchy feeling at the external auditory meatus bilaterally and in the surrounding external ear. Exam shows a probable seborrheic dermatitis. We will have her start some ketoconazole cream. If not responding, she will let us know. Influenza A 03/23/2021 04/25/2022 Overview (04/25/2022): Saw Aliya Huertas D.O. Assessment & Plan (03/23/2021 2:08 PM DIRECTOR OF RESEARCH CENTER): Reiterated treatment plan. Encouraged patient to increase [...] Plan (08/17/2020 5:56 PM CDT): Prescriptions sent. Fesga-sr-qfayoh exercises encouraged once pain level decreases. Return [...] in your mouth on an sophie like Pigeonly or [employer] carries a zero net carb bread [...] in much longer they will become mushy [employer] and/or coconut flour instead of regular flour [...] pork rinds For yogurt, try Two Good uzbek yogurt Use Tk for recipe ideas. Type in low carb... Assessment & Plan (01/26/2020 8:12 PM DIRECTOR OF RESEARCH CENTER): Weight reduction, daily exercise and dietary modifications [...] psychiatry Assessment & Plan (01/26/2020 8:10 PM DIRECTOR OF RESEARCH CENTER): Clinically improved, managed by psychiatrist. Assessment & [...] recommended. Assessment & Plan (01/21/2019 11:41 AM DIRECTOR OF RESEARCH CENTER): Worsening. Encouraged patient to decrease weight, increase [...] list. Assessment & Plan (01/26/2020 8:11 PM DIRECTOR OF RESEARCH CENTER): Stable. Cont. Current meds. Managed by psychiatry. [...] How often do you attend orthodox or religion serv ices? Never 01/30/2020 Do [...] Legal Sex Female 1:21 PM DIRECTOR OF RESEARCH CENTER Gender Identity Female 05/05/2022 8:09 AM DIRECTOR OF RESEARCH CENTER Sexual Orientation Straight 11/04/2018 1: 20 PM [...] on file Medical Devices Implanted Type Area Net Lead Architect Device Identifier Shelf Expiration Date Model / Serial / Lot Morphy Angio-Seal Vip 6fr Closere Device [id number] - [id number] Implanted:Qty: 1 on 06/27/2024 by Ran García MD at [facility] Morphy 11/11/2024 [id number] / / [id number] Procedures Procedure Name Priority Date/Time Associated Diagnosis [...] HEPATITIS C ANTIBODY Routine 01/21/2019 11:48 AM DIRECTOR OF RESEARCH CENTER Encounter for hepatitis C screening test for low risk patient COLONOSCOPY Routine 04/23/2017 from Last 3 Months or Most Recently Relevant to Health Maintenance Results * T3, free (10/01/2024 2:21 PM CDT) Free T3 2.0 2.0 - 4.4 pg/mL Comment:Testing performed by : [facility], [address] [place] [address], [place]., [address] Blood 10/01/2024 2:21 PM CDT 10/01/2024 7:26 PM CDT Stephanie Cole MD LAB BLOOD ORDERABLES Final Re sult Performing Organization Address [facility]/State/ZIP Co de Phone Number JAMAR SINGH ([place]) 1 [facility] [place] [address] * TSH (10/01/2024 2:21 PM CDT) Thyroid Stimulating Hormone 0.87 0.30 - 4.20 mcIUnit/mL JAMAR SINGH ([place]) Blood 10/01/2024 2:21 PM CDT 10/01/2024 3:10 PM CDT Stephanie Cole MD LAB BLOOD ORDERABLES Final Re sult Performing Organization Address [facility] Co de Phone Number JAMAR SINGH ([place]) 1 [facility] [place] [address] * T4, free (10/01/2024 2:21 PM CDT) Free T4 1.23 0.90 - 1.70 ng/dL JAMAR SINGH ([place]) Blood 10/01/2024 2:21 PM CDT 10/01/2024 3:10 PM CDT Stephanie Cole MD LAB BLOOD ORDERABLES Final Re sult Performing Organization Address [facility]/ZIP Co de Phone Number JAMAR SINGH ([place]) 1 [facility] [place] [address] * (ABNORMAL) T3, free (09/01/2024 1:19 PM CDT) Free T3 1.7(L) 2.0 - 4.4 pg/mL Comment:Testing performed by : [facility], [address] [place] [address], [place]., [address] Blood 09/01/2024 1:19 PM CDT 09/01/2024 5:15 PM CDT Stephanie Cole MD LAB BLOOD ORDERABLES Final Re sult JAMAR SINGH [place]) 1 [facility] [place] [address] * (ABNORMAL) TSH (09/01/2024 1:19 PM CDT) Thyroid Stimulating Hormone 4.36(H) 0.30 - 4.20 mcIUnit/mL Blood 09/01/2024 1:19 PM CDT 09/01/2024 1:36 PM CDT Stephanie Cole MD LAB BLOOD ORDERABLES Final Re sult Performing Organization Address City/[facility]/ZIP Co de Phone Number JAMAR SINGH ([place]) 1 [facility] [place] [address] * T4, free (09/01/2024 1:19 PM CDT) Free T4 1.25 0.90 - 1.70 ng/dL Blood 09/01/2024 1:19 PM CDT 09/01/2024 1:36 PM CDT Stephanie Cole MD LAB BLOOD ORDERABLES Final Re sult JAMAR SINGH [place]) 1 [facility] [place] [address] * HM DIABETES EYE EXAM (07/31/2024 4:13 PM CDT) SCRIBED DIABETIC DILATED EYE EXAM Normal us Howard Ferguson MD HEALTH MAINTENANCE Final Result * eGFR (07/22/2024 [...] BLOOD ORDERABLES Final Re sult [facility] ([place]) 1 [facility] Department of Laboratories [place], [place] [id number] * Urinalysis reflex to microscopic (07/22/2024 10:15 AM CDT) Color, ur Yellow Yellow Clarity, ur Clear Clear JAMAR Singh ([place]) Specific gravity, ur 1.022 1.003 - 1.030 [facility] ([place]) pH, urine 5.5 JAMAR SINGH ([place]) Comment: Interpretive Data U rine pH is affected by diet, medications, systemic acid-base disturbances, and renal tubular function. pH may affect urinary stone formation. For example, urine pH below 6.0 may help reduce the tendency for calcium phosphate stones and pH greater than 6.0 may reduce the tendency for uric acid stone formation. Source: [facility] [employer] Current Interpretive Data was last revised on 2017 Protein, ur ql Negative Negative [facility] ([place]) Glucose, ur ql Negative Negative [facility] R [...] Reflex conditions for microscopic UA not met. [facility] ([place]) Urine 07/22/2024 10:1 5 AM CDT 07/22/2024 10:31 AM CDT Stephanie Cole MD LAB URINE ORDERABLES Final Re sult Performing Organization Address City/[facility]/ZIP Co de Phone Number JAMAR SINGH ([place]) 1 [facility] [place] [address] * (ABNORMAL) T3, free (07/22/2024 10:15 AM CDT) Free T3 1.3(L) 2.0 - 4.4 pg/mL Comment:Testing performed by : [facility], [address] [place] [address], [address] Blood 07/22/2024 10:1 5 AM CDT 07/22/2024 2:22 PM CDT Stephanie Cole MD LAB BLOOD ORDERABLES Final Re sult JAMAR SINGH ([place]) 1 [facility] [place] [address] * (ABNORMAL) TSH (07/22/2024 10:15 AM CDT) Thyroid Stimulating Hormone 7.55(H) 0.30 - 4.20 mcIUnit/mL Blood 07/22/2024 10:1 5 AM CDT 07/22/2024 10:29 AM CDT Stephanie Cole MD LAB BLOOD ORDERABLES Final Re sult GARRYDEL SINGH ([place]) 1 [facility] [facility] [place] [address] * T4, free (07/22/2024 10:15 AM CDT) Free T4 1.14 0.90 - 1.70 ng/dL Blood 07/22/2024 10:1 5 AM CDT 07/22/2024 10:29 AM CDT Stephanie Cole MD LAB BLOOD ORDERABLES Final Re sult Performing Organization Address [facility] Co de Phone Number GARRYDEL SINGH ([place]AM) 1 [place] [address] * (ABNORMAL) Hemoglobin A1c (07/22/2024 10:15 AM CDT) [facility] Hgb A1C 7.9(H) 4.0 - 5.6 % Estimated Average Glucose 180 mg/dL JAMAR SINGH (HIRAM) Comment: The ADA recommends reporting an estimated Average Glucose (eAG) with all Hemoglobin A1c results using the equation derived from a study of 507 normal and diabetic adults. Minority populations were underrepresented and children were not included. (Diabetes Care 31:5629-1643, 2008). The eAG is not equivalent to a fasting glucose. Blood 07/22/2024 10:1 5 AM CDT 07/22/2024 10:29 AM CDT Stephanie Cole MD LAB BLOOD ORDERABLES Final Re sult Performing Organization Address City/[facility]/ZIP Co de Phone Number JAMAR SINGH (HIRAM) 1 [facility] [place] [address] * (ABNORMAL) Comprehensive metabolic panel (07/22/2024 10:15 AM CDT) [facility] Sodium 137 135 - 145 mmol/L Potassium, pl 4.4 3.3 - 4.9 mmol/L [facility] (HIRAM) Chloride 99 97 - 110 mmol/L [facility] ([place]IRAM) CO2 26 22 - 32 [...] 77(H) 10 - 45 Units/L [facility] (HIRMA) Blood 07/22/2024 10:1 5 AM CDT 07/22/2024 10:29 AM CDT us Stephanie Cole MD LAB BLOOD ORDERABLES Final Re sult [facility] (HIRAM) 1 [facility] Department [place] [address] * SCAN - LABS (07/14/2024 3:26 PM CDT) us Stephanie Cole MD Final Result * Urinalysis reflex to microscopic and culture Urine, clean voided (07/14/2024) Urine, clean voided us Stephanie Cole MD LAB MICROBIOLOGY - GENERAL OR DERABLES Edited Result - Final Performing Organization Address [facility] Co de Phone Number EXTERNAL LAB * Albumin Creatinine Ratio, Urine (06/24/2024 10:04 AM CDT) Albumin Ur <12.0 mg/L Comment: Interpretive Data No reference range established. Current interpretive data was last revised 2018. Testing performed by: [facility], [address] [place] [address]., [id number] Creatinine Ur 61.5 mg/dL JAMAR SINGH (HIRAM) Comment: Interpretive Data No reference range established. Current interpretive data was last revised 2018. Testing performed by: [facility], [address] [place] [address]., [id number] Albumin Creatinine Ratio, Ur <20 1 - 29 mg/g JAMAR SINGH (HIRAM) Comment:Testing performed by : [facility], [address] [place] [address]., [id number] Urine 06/24/2024 10:0 4 AM CDT 06/24/2024 2:22 PM CDT Stephanie Cole MD LAB URINE ORDERABLES Final Re sult Performing Organization Address [facility] Co de Phone Number JAMAR SINGH (HIRAM) 1 [facility] Department [place] [address] * (ABNORMAL) Lipid panel (06/24/2024 10:04 AM [...] 3. Farshad M et al. ISIAH Cardiol. 2019July 17;5(5):540-548. doi: 10.1001/jamacardio.2020.0013 Current Interpretive Data was last revised on 2023. Non-HDL Cholesterol 86 mg/dL JAMAR SINGH ([place]) Comment: Interpretive Data Ages < or = [...] on 2017. Chol/HDL ratio 3 ANDER SINGH ([place]GHAM) Blood 06/24/2024 10:0 4 AM CDT 06/24/2024 10:52 AM CDT us Stephanie Cole MD LAB BLOOD ORDERABLES Final Re sult JAMAR FRANCISCO ([place]AM) 1 [facility] Department [place] [address] * LUNG CANCER SCREENING (01/19/2024) Scribed Lung Cancer Screening Normal Impressions Stephanie Cole MD - 01/19/2024 Low-dose CT chest 01/19/2024 at [facility] negative for suspicious nodules. Narrative Stephanie Cole MD - 01/19/2024 See scanned report. us Flori [facility] Fin al Result * MAMMOGRAPHY (11/28/2022) Mammography Normal Impressions Stephanie Cole MD - 11/28/2022 [facility] 1, [facility]. Narrative Stephanie Cole MD - 11/28/2022 See scanned report. us Betzaida Subramanian ARCHEOLOGY FACULTY [facility] Final Result * Hepatitis C antibody (01/21/2019 11:48 AM DIRECTOR OF RESEARCH CENTER) Hep C Ab Negative Negative JAMAR SINGH (HIRAM) Comment:Testing performed by : [facility], [address] [place] [address], [id number] Blood specimen (specimen) 01/21/2019 11:48 AM DIRECTOR OF RESEARCH CENTER 01/21/2019 7:22 PM DIRECTOR OF RESEARCH CENTER us Aliya Huertas DO LAB MICROBIOLOGY - GENERAL ORDERABLES Final Result JAMAR FRANCISCO (HIRAM) 1 [facility] Department [place] [address] * COLONOSCOPY (04/23/2017) Colonoscopy Abnormal us Historical Provider HEALTH MAINTENANCE Final Result from Last 3 Months or Most Recently Relevant to Health Maintenance Insurance [facility] [place] [address] MEDICARE MEDICARE [facility] MEDICARE BLUE CROSS MEDICARE SUPPLEMENT Advance Directives For more information, please contact: [phone] * Full Code (Latest Code Status on File) Date Activated Date Inactivated Comments 06/27/2024 1:07 PM 06/27/2024 7:17 PM * Full Code Date Activated Date Inactivated Comments 12/19/2019 5:44 PM 12/21/2019 2:39 PM * Full Code Date Activated Date Inactivated Comments 11/19/2019 8:23 PM 11/21/2019 2:56 PM * Full Code Date Activated Date Inactivated Comments 11/21/2018 5:09 PM 11/24/2018 6:00 PM Care Teams Computational Linguist Relationship Specialty Start Date End Date Stephanie Cole MD [address] [place] [address] PCP - General Internal Medicine 10/14/21 [place] [address] [facility] [address] [place] [address] Consulting Physician Endocrinology Diabetes & Metabolism 01/21/19 [place] [address] [facility] [facility] [address] [place] [address] Referring Physician Psychiatry 01/21/19 [place] [address] [address] [place] [address] Consulting Physician Pain Management 09/25/22 Aminah Cheung OD [address] [place] [address] Consulting Physician Optometry 01/18/23 Flori Sotelo PA [address] [facility] [address] [place] [address] Physician Culinary Internship Pulmonary Disease 01/26/24 Kostas Lr MD [address] [place] [address] Consulting Physician Cardiology 02/22/24 Jay Marc MD [address] [place] [address] Surgeon Orthopedic Surgery 04/21/24 Bonita Cotto NP [address] [place] [address] Nurse Practitioner Family Medicine 09/04/24
--- OUTSIDE RECORDS SUMMARY | 2024-10-03 09:43 | XMS_ITS | Encounter Summary ---
Author Organization [facility] Address [address] [place] [address] Care Team Providers Care Manager Process Excellence Name Role Phone Naveed Fernandez MD Primary Care Provider Unavail able Encounter Details Date Type Department Care Team (Late st Contact Info) Description 09/16/2003 Inpatient Historical [facility] PATIENT IN A BED Franco Caraballo MD [address] [place] [address] NAUSEA WITH VOMITING (Primary Dx) Social History Tobacco Use Types Packs/Day Years Used Date Smoking Tobacco: Never Assessed Comments Unknown Sex and Gender Information Value Date Recorded Sex Assigned at Female 01/14/2024 8:12 PM CDT Legal Sex Female 4:52 AM THERMIT WELDING MACHINE OPERATOR Gender Identity Female 01/14/2024 8:12 PM CDT Sexual Orientation Choose not to disclose 2023 8:12 PM CDT documented as of this encounter Plan of Treatment Not on file documented as of this encounter Visit Diagnoses Diagnosis Nausea with vomiting- Primary documented in this encounter Additional Health Concerns Infection Onset Date Last Indicated Resolved Time R/O Respiratory 02/10/2024 02/10/2024 02/10/2024 8 :05 PM THERMIT WELDING MACHINE OPERATOR R/O Respiratory 03/31/2024 03/31/2024 03/31/2024 5 :16 PM THERMIT WELDING MACHINE OPERATOR COVID-19 03/31/2024 03/31/2024 04/20/2024 1:16 AM THERMIT WELDING MACHINE OPERATOR R/O C. diff 04/01/2024 04/01/2024 04/02/2024 3:00 AM THERMIT WELDING MACHINE OPERATOR documented as of this encounter Care Teams Manager Process Excellence Relationship Specialty Start Date End Date Naveed Fernandez MD PCP - General Internal Medicine 04/21/23 Flori Mcdonald Nurse Practitioner Pulmonology 04/06/23 documented as of this encounter
--- OUTSIDE RECORDS SUMMARY | 2024-10-03 09:43 | XMS_ITS | Encounter Summary ---
Author Organization [facility] Address [address] [place] [address] Care Team Providers Care Fur Repair Inspector Name Role Phone Naveed Fernandez MD Primary Care Provider Unavail able Encounter Details Date Type Department Care Team (Late st Contact Info) Description 04/17/2002 Inpatient Historical HIS PATIENT IN A BED Clint Vazquez MD [address] [place] [phone] MANIC-DEPRESSIVE NEC (CMS/HCC) (Primary Dx) Social History Tobacco Use Types Packs/Day Years Used Date Smoking Tobacco: Never Assessed Comments Unknown Sex and Gender Information Value Date Recorded Sex Assigned at Female 01/14/2024 8:12 PM CDT Legal Sex Female 4:52 AM SMOKING PIPE MAKER Gender Identity Female 01/14/2024 8:12 PM CDT Sexual Orientation Choose not to disclose 2023 8:12 PM CDT documented as of this encounter Plan of Treatment Not on file documented as of this encounter Visit Diagnoses Diagnosis Other bipolar disorders- Primary documented in this encounter Additional Health Concerns Infection Onset Date Last Indicated Resolved Time R/O Respiratory 02/10/2024 02/10/2024 02/10/2024 8 :05 PM SMOKING PIPE MAKER R/O Respiratory 03/31/2024 03/31/2024 03/31/2024 5 :16 PM SMOKING PIPE MAKER COVID-19 03/31/2024 03/31/2024 04/20/2024 1:16 AM SMOKING PIPE MAKER R/O C. diff 04/01/2024 04/01/2024 04/02/2024 3:00 AM SMOKING PIPE MAKER documented as of this encounter Care Teams Fur Repair Inspector Relationship Specialty Start Date End Date Naveed Fernandez MD PCP - General Internal Medicine 04/21/23 Flori Mcdonald Nurse Practitioner Pulmonology 04/06/23 documented as of this encounter
--- OUTSIDE RECORDS SUMMARY | 2024-10-03 09:43 | XMS_ITS | Encounter Summary ---
Author Organization [facility] Address [address] [place] [address] Care Team Providers Care Hydropulper Operator Name Role Phone Naveed Fernandez MD Primary Care Provider Unavail able Encounter Details Date Type Department Care Team (Late st Contact Info) Description 09/29/2003 Inpatient Historical HIS PATIENT IN A BED Jarad Neal MD NO ADDRESS ON FILE Franco Caraballo MD [address] [place] [address] ABDOMINAL PAIN UNSPEC SITE (Primary Dx) Social History Tobacco Use Types Packs/Day Years Used Date Smoking Tobacco: Never Assessed Comments Unknown Sex and Gender Information Value Date Recorded Sex Assigned at Female 01/14/2024 8:12 PM CDT Legal Sex Female 4:52 AM DEBUG TECHNICIAN Gender Identity Female 01/14/2024 8:12 PM CDT Sexual Orientation Choose not to disclose 2023 8:12 PM CDT documented as of this encounter Plan of Treatment Not on file documented as of this encounter Visit Diagnoses Diagnosis Abdominal pain, unspecified site- Primary documented in this encounter Additional Health Concerns Infection Onset Date Last Indicated Resolved Time R/O Respiratory 02/10/2024 02/10/2024 02/10/2024 8 :05 PM DEBUG TECHNICIAN R/O Respiratory 03/31/2024 03/31/2024 03/31/2024 5 :16 PM DEBUG TECHNICIAN COVID-19 03/31/2024 03/31/2024 04/20/2024 1:16 AM DEBUG TECHNICIAN R/O C. diff 04/01/2024 04/01/2024 04/02/2024 3:00 AM DEBUG TECHNICIAN documented as of this encounter Care Teams Hydropulper Operator Relationship Specialty Start Date End Date Naveed Fernandez MD PCP - General Internal Medicine 04/21/23 Flori Mcdonald Nurse Practitioner Pulmonology 04/06/23 documented as of this encounter
[2024-10-03 09:45] VITALS: PULSE 76; O2SAT 96
[2024-10-03 09:51] VITALS: PULSE 84; O2SAT 94
--- NOTE | 2024-10-03 10:09 | HOMEO2EVAL ---
Evaluation was performed at [facility] Home Oxygen Evaluation RC: Home Oxygen (O2) Evaluation Start: 10/03/24 10:02 Freq: Status: Active Protocol: RPE Activity Type Activity Date Activity User E-sign Co-sign Detail Recorded Client Recorded Date Recorded By Document 10/03/24 09:45 EAW [id number] 10/03/24 10:08 EAW Document 10/03/24 09:51 EAW [id number] 10/03/24 10:08 EAW 10/03/24 10/03/24 09:45 09:51 Home O2 Evaluation [Oxygen] -Test Phase Resting Exercise -Oxygen Delivery Room Air Room Air [Pulse Oximetry] -Pulse Oximetry (90-100 %) 96 94 [Pulse Rate] -Pulse Rate (60-100 beats/min) 76 84 [Evaluation] -Activity Tolerance Good -Rating of Perceived Dyspnea (PD) +1 Mild, +1 Mild, Noticeable to Noticeable to the Participant the Participant but Not to an but Not to an Observer Observer -Rate of Perceived Exertion (PE) 12 Query Text:Click the Protocol Button to View the RPE Scale [Exercise] -Ambulation Distance (feet) 520 -Ambulation Distance (meters) 158.48 [Comments] -Home Oxygen Evaluation Comments Will begin walk Patient walked on room air. approximately 520 feet on room air with Sp02 staying at 945 and above, with HR to 84. Gloria well. Educated on smoking cessation. [Charges] -Evaluation Charges O2 Evaluation Charge
== END 2024-10-03 09:40 | disposition home or self-care (01) ==
LOC: CHSCARD 09:40
PROVIDERS: PCP Internal Medicine Infectious Disease; Visit Provider Physician Assistant
DX: J44.9 Chronic obstructive pulmonary disease, unspecified (principal)
CPT/HCPCS: 94618

== ENCOUNTER 2024-10-14 10:15 | Outpatient (CLI) | payer MEDICARE, SELFPAY ==
--- NOTE | ~2024-10-14 | CT_ITS ---
CT Scan of the Chest without Contrast: Clinical Indication: Lung screening follow-up Technique: Contiguous sections were acquired throughout the chest without intravenous contrast. Dose reduction technique was used on this scan by utilizing automated exposure control and iterative recon struction technique. The dose-length product (DLP) was 537.42 mGy-cm. COMPARISON: 424 Findings: There is no evidence of any significant mediastinal, hilar or axillary lymphadenopathy. The mediastin al soft tissues appear normal. There is no evidence of pleural or pericardial effusion. The lungs are clear. No pulmonary nodules or infiltrates are noted. Images through the upper abdomen reveal no abnormalities. Impression: Clear lungs. Previously noted right upper lobe airspace opacity is resolved. Reviewed, dictated and finalized at location . Impression: Clear lungs. Previously noted right upper lobe airspace opacity is resolved.
--- OUTSIDE RECORDS SUMMARY | 2024-10-14 10:32 | XMS_ITS | Encounter Summary ---
Author Organization [facility] Address [address] [place] [address] Care Team Providers Care Commercial Finance Manager Name Role Phone Naveed Fernandez MD Primary Care Provider Unavail able Encounter Details Date Type Department Care Team (Latest Contact Info) Description 02/19/2004 Outpatient Historical [place] [address] [place] [address] INTRINS URETHRL SPHINC DEFICIENCY (Primary Dx) Social History Tobacco Use Types Packs/Day Years Used Date Smoking Tobacco: Never Assessed Comments Unknown Sex and Gender Information Value Date Recorded Sex Assigned at Female 01/14/2024 8:12 PM CDT Legal Sex Female 4:52 AM TANK ERECTOR Gender Identity Female 01/14/2024 8:12 PM CDT [...] Respiratory 02/10/2024 02/10/2024 02/10/2024 8 :05 PM TANK ERECTOR R/O Respiratory 03/31/2024 03/31/2024 03/31/2024 5 :16 PM TANK ERECTOR COVID-19 03/31/2024 03/31/2024 04/20/2024 1:16 AM TANK ERECTOR R/O C. diff 04/01/2024 04/01/2024 04/02/2024 3:00 AM TANK ERECTOR documented as of this encounter Care Teams Commercial Finance Manager Relationship Specialty Start Date End Date Naveed Fernandez MD PCP - General Internal Medicine 04/21/23 Flori Mcdonald Nurse Practitioner Pulmonology 04/06/23 documented as of this encounter
--- OUTSIDE RECORDS SUMMARY | 2024-10-14 10:32 | XMS_ITS | Clinical Summary ---
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 4 Active naloxone (NARCAN) 4 mg/spray [place], Non-Aerosol Administer 1 [place] in each nostril. 3 Active liothyronine (CYTOMEL) [...] moderate pain. 20 Tablet 03/30/2024 1:16 PM SAMPLE TESTER 5 Active losartan (COZAAR) 50 mg tablet [...] of Breath. 8.5 Gram 04/03/2024 2:51 PM SAMPLE TESTER 5 Active cyclobenzaprine (FLEXERIL) 5 mg Tablet Take 1 Tablet (5 mg) by mouth 3 times daily as needed for Spasm. 90 Tablet 04/03/2024 2:51 PM SAMPLE TESTER 5 Active albuterol (PROVENTIL,VENTOLI N) 2.5 mg /3 mL (0.083 %) Solution for Nebulization Take 3 mL (2.5 mg) by inhalation every 6 hours as needed for Shortness of Breath or Wheezing. 90 mL 04/03/2024 2:51 PM SAMPLE TESTER 01/16/202 5 Active predniSONE (DELTASONE) 20 mg tablet Starting 04/04: Take 2 Tablets (40 mg) by mouth daily with breakfast. 2 Tablet 04/03/2024 2:51 PM SAMPLE TESTER Active oxyCODONE (ROXICODONE) 10 mg tabletIndications: Spondylosis without myelopathy or radiculopathy, sacral and sacrococcygeal region Take 1 Tablet (10 mg) by mouth every 6 hours as needed for Pain. Max Daily Amount: 40 mg 20 Tablet 04/03/2024 2:51 PM SAMPLE TESTER Active polyethylene glycol 3350 (MIRALAX) 17 gram/dose Powder Starting 04/04: Dissolve 1 capful (17 Grams) in 8 ounces of fluid and drink by mouth once daily. mix as directed 510 Gram 04/03/2024 2:51 PM SAMPLE TESTER Active Active Problems Problem Noted Date Diagnosed [...] continued 7. Avoid alcohol sedatives and other ABALONE DIVER depression that may worsen sleep apnea and [...] mcg daily. Patient does have a nuclear cardiology technologist, advised patient to follow-up with nuclear cardiology technologist. She is taking a medication, Cytomel, which has a common side effect of diaphoresis. Encouraged patient to speak to her nuclear cardiology technologist about possibly discontinuing this medication. Last Assessment & Plan: Recent labs were all within normal range with exception of her TSH which was slightly elevated. She was seen by the nurse practitioner at that time who increased her levothyroxine to 150 mcg daily. Patient does have a nuclear cardiology technologist, advised patient to follow-up with nuclear cardiology technologist. She is taking a medication, Cytomel, which has a common side effect of diaphoresis. Encouraged patient to speak to her nuclear cardiology technologist about possibly discontinuing this medication. Herpes simplex infection 01/19/2020 Essential hypertension 01/19/2020 Memory loss 01/19/2020 Hyperplastic polyp of sigmoid colon 01/01/2020 Overview (04/20/2023): Colonoscopy 04/23/2017 [facility] everywhere Colonoscopy 04/23/2017 [facility] everywhere Chronic migraine without aur a without [...] Encounters Date Type Department Care Team Description 10/12/2024 8:34 PM CDT - 10/12/2024 9:21 PM CDT Emergency [facility] Emergency Department [address] [place] [address] Chelsy Knight MD Discharge Disposition: Left Against Medical Advice 10/12/2024 Travel 09/16/2024 External Device Data STL ABSTRACTION Provider, Abstract 07/28/2024 12:57 PM CDT - 07/28/2024 11:59 PM CDT Hospital Encounter [facility] [address] [facility] [address] [address] Jay Marc MD Discharge Disposition: Home or Self Care 07/15/2024 External Device Data STL ABSTRACTION Provider, Abstract 07/15/2024 External Device Data STL ABSTRACTION Provider, Abstract from Last 3 Months Immunizations Immunization Administration Dates Next Due (ADACEL/BOOSTRIX)(10 YR UP) TDAP VACCINE, 0.5ML, IM 05/18/2023 (PREVNAR 20)(6 WKS UP) PNEUM OCOCCAL CONJUGATE VACCINE 20-VALENT (PCV20), POLYSACCHARIDE [id number] CONJUGATE, ADJUVANT 0.5 ML (PF) IM 05/18/2023() [...] PM CDT Legal Sex Female 4:52 AM SAMPLE TESTER Gender Identity Female 01/14/2024 8:12 PM CDT Sexual Orientation Choose not to disclose 2023 8:12 PM CDT Last Filed Vital Signs Vital Sign Reading Time Taken Comments Blood Pressure 141/67 10/12/2024 6:38 PM CDT Pulse 76 10/12/2024 6:38 PM CDT Temperature 36.6 C (97.8 F) 10/12/2024 6:38 PM CDT Respiratory Rate 19 10/12/2024 6:38 PM CDT Oxygen Saturation 94% 10/12/2024 6:38 PM CDT Inhaled Oxygen Concentration - - Weight 127 kg (280 lb) 10/12/2024 6:38 PM CDT Height 175.3 cm (5' 9) 10/12/2024 6:38 PM CDT Body Mass Index 41.35 10/12/2024 6:38 PM CDT Plan of Treatment Health Maintenance [...] 2023 06/06/2020, 05/14/2020 INFLUENZA VACCINE (#1) 2024 4, 05/18/2023, 05/07/2022, Additional history exists DIABETES HBA1C Q 6 MONTHS 01/22/20252024, 06/24/2024, 04/21/2024, Additional history exists DIABETES ANNUAL FOOT EXAM 01/24/2025 01/25/2024 COLORECTAL SCREENING 04/23/2027 04/23/2017, 03/19/19 12 Colorectal Cancer Screening 04/23/2027 DTAP/TDAP/TD VACCINES (2 - T d or Tdap) 05/17/2033 05/18/2023, 10/13/2013, 03/19/2013 Lung Cancer Screening Discontinued 09/07/2021 , 02/23/2020, 02/19/2019 ZOSTER VACCINE Completed 07/19/2022, 05/07/2022 Medical Devices Implanted Type Area Bridge Maintenance Worker Device Identifier Shelf Expiration Date Model / Serial / Lot Infuse Protein Kit [id number] - [id number] Implanted:Qty: 1 on 05/05/2015 by Jay Marc MD at [facility] Biologica l N/A: Back MEDTRONIC- SOFAMOR DANEK [id number] 04/18/2017 [id number] / / [id number] [facility] Infuse Protein Kit Med [id number] - [id number] Implanted:Qty: 1 on 04/20/2023 by Jay Marc MD at [facility] N/A: Spine Lumbar MEDTRONIC- SOFAMOR DANEK 2025 [id number] / / [id number] Sealant Duraseal 5ml [id number] Implanted:Qty: 1 on 03/26/2024 by Jay Marc MD at [facility] N/A: Spine Thoracic [employer]RA [employer]IF[employer]OW 07/16/2024 / / [id number] Infuse Protein Kit Med 6305043 - [id number] Implanted:Qty: 1 on 03/26/2024 by Jay Marc MD at [facility] N/A: Spine Thoracic MEDTRONIC- SOFAMOR DANEK [id number] 01/17/2025 [id number] / / [id number] Allgrft Spacer Acf 7mm 306964 - [id number] Implanted:Qty: 1 on 11/29/2016 by Jay Marc MD at [facility] N/A: Spine Cervical Anterior MUSCULOSKELETAL TRANSPLANT FOU 11/16/2020 505700 / [id number] / Description:BOTH MTF SPACERS PROCESSED ON REQ# [id number] Allgrft Spacer Acf 7mm 260314 - [id number] Implanted:Qty: 1 on 11/29/2016 by Jay Marc MD at [facility] N/A: Spine Cervical Anterior MUSCULOSKELETAL TRANSPLANT FOU 12/06/2020 109927 / [id number] / Allgrft Vivigen Matrix 10ml Bl-1500-003 - [id number] Implanted:Qty: 1 on 07/13/2017 by Jay Marc MD at [facility] N/A: Spine Cervical Posterior LIFENET 01/05/2018 BL-1500-003 / [id number] / Description:REQ#[id number] Allgrft Vivigen Matrix 10ml Bl-1500-003 - [id number] Implanted:Qty: 1 on 07/13/2017 by Jay Marc MD at [facility] Bone N/A: Spine Cervical Posterior LIFENET 01/03/2018 -1500-003 / [id number] / Hemostatic Surgiflo 8ml W/Thrombin 2994 - [id number] Implanted:Qty: 1 on 07/13/2017 by Jay Marc MD at [facility] Hemostati c N/A: Spine Cervical Posterior J&J- ETHICON INC 09/15/2018 2994 / / [id number] Hemostatic Surgifoam Sz12-7 1972 - [id number] Implanted:Qty: 1 on 04/20/2023 by Jay Marc MD at [facility] Hemostati c N/A: Spine Lumbar J&J- ETHICON ENDO-SURGERY INC 12/13/2026 1972 / / [id number] Hemostatic Surgiflo 8ml W/ Thrombin 2994 - [id number] Implanted:Qty: 1 on 04/20/2023 by Jay Marc MD at [facility] Hemostati c N/A: Spine Lumbar J&J- ETHICON INC [id number] 06/16/2024 2994 / / [id number] Hemostatic Surgiflo 8ml W/ Thrombin 2994 - [id number] Implanted:Qty: 1 on 04/20/2023 by Jay Marc MD at [facility] Hemostati c N/A: Spine Lumbar J&J- ETHICON INC [id number] 04/18/2024 2994 / / [id number] Hemostatic Surgiflo 8ml W/ Thrombin 2994 - [id number] Implanted:Qty: 1 on 04/20/2023 by Jay Marc MD at [facility] Hemostati c N/A: Spine Lumbar J&J- ETHICON INC [id number] 04/18/2024 2994 / / [id number] Hemostatic Surgiflo 8ml W/ Thrombin 2994 - [id number] Implanted:Qty: 1 on 04/20/2023 by Jay Marc MD at [facility] Hemostati c N/A: Spine Lumbar J&J- ETHICON INC [id number] 05/16/2024 2994 / / [id number] Hemostatic Surgiflo 8ml W/ Thrombin 2994 - [id number] Implanted:Qty: 1 on 04/20/2023 by Jay Marc MD at [facility] Hemostati c N/A: Spine Lumbar J&J- ETH[employer]ON INC [id number] 05/16/2024 2994 / / [id number] Hemostatic Surgiflo 8ml W/ Thrombin 2994 - [id number] Implanted:Qty: 4 on 03/26/2024 by Jay Marc MD at [facility] Hemostati c N/A: Spine Thoracic J&J- ETHICON INC [id number] 05/16/2025 2994 / / [id number] Hemostatic Surgiflo 8ml W/ Thrombin 2994 - [id number] Implanted:Qty: 3 on 03/26/2024 by Jay Marc MD at [facility] Hemostati c N/A: Spine Thoracic J&J- ETHICON INC [id number] 05/16/2025 2994 / / [id number] Hemostatic Surgiflo 8ml W/ Thrombin 2994 - [id number] Implanted:Qty: 2 on 03/26/2024 by Jay Marc MD at [facility] Hemostati c N/A: Spine Thoracic J&J- ETHICON INC [id number] 03/18/2025 2994 / / [id number] Hemostatic Surgifoam Sz100 1973 - [id number] Implanted:Qty: 1 on 03/26/2024 by Jay Marc MD at [facility] Hemostati c N/A: Spine Thoracic J&J- ETHICON ENDO-SURGERY INC [id number] 12/27/2027 1974 / / [id number] Hemostatic Surgifoam Sz12-7 1971 - [id number] Implanted:Qty: 1 on 03/26/2024 by Jay Marc MD at [facility] Hemostati c N/A: Spine Thoracic J&J- ETH[employer]ON ENDO-SURGERY INC [id number] 01/15/2028 1972 / / [id number] Hemostatic Surgiflo 8ml W/ Thrombin 2994 - [id number] Implanted:Qty: 1 on 03/26/2024 by Jay Marc MD at [facility] Hemostati c N/A: Spine Thoracic J&J- ETHICON INC [id number] 02/15/2025 2994 / / [id number] Plate Cslp Leonard Ang 66mm 450.175 - Sload 411, Sterilized 11/23/2016 Implanted:Qty: 1 on 11/29/2016 by Jay Marc MD at [facility] Plate N/A: Spine Cervical Anterior SYNTHES-STRATEC- SPINAL 450.175 / LOAD 411, STERILIZED 11/23/2016 / Description:ALL SYNTHES SPIN E HARDWARE PROCESSED ON REQ# [id number] 3.5mm Ti Curved Harsh 75mm Implanted:Qty: 2 on 07/13/2017 by Jay Marc MD at [facility] Harsh N/A: Spine Cervical Posterior 04.614.775 / / STERILIZED -07/13/17; VAC- 9; LOAD- [id number] Description:REQUISITION # 78 93993 Harsh Cdh Ccm 5.5x60mm Crvd [id number] - [id number] Implanted:Qty: 2 on 04/20/2023 by Jay Marc MD at [facility] Harsh N/A: Spine Lumbar MEDTRONIC- SOFAMOR DANEK [id number] / / LAOD 37, 04/17/23 100mm Medtronic Prebent Harsh Implanted:Qty: 2 on 03/26/2024 by Jay Marc MD at [facility] Harsh N/A: Spine Thoracic MEDTRONIC - COVIDIEN [id number] / / LOAD 13 STERILIZED 03/20/2024 Description:REQ [id number] Screw Xpnhead C Spine 4.90z91ti 487.056 - Sload 411, Sterilized 11/23/2016 Implanted:Qty: 8 on 11/29/2016 by Jay Marc MD at [facility] Screw N/A: Spine Cervical Anterior SYNTHES STRATEC 487.056 / LOAD 411, STERILIZED 11/23/2016 / Screw Lock C Spine 1.8mm 497.78 - Sload 411, Sterilized 11/23/2016 Implanted:Qty: 8 on 11/29/2016 by Jay Marc MD at [facility] Screw N/A: Spine Cervical Anterior SYNTHES-STRATEC- SPINAL 497.78 / LOAD 411, STERILIZED 11/23/2016 / Screw Canc Polyaxial 3.5x12mm 04.614.012 - Ssterilization 9 Load [id number] Implanted:Qty: 6 on 07/13/2017 by Jay Marc MD at [facility] Screw N/A: Spine Cervical Posterior SYNTHES-STRATEC- MAXIFACIAL 04.614.012 / STERILIZATI ON 9 LOAD [id number] / Description:REQUISITION # [id number] Screw Canc Polyaxial 3.5x14mm 04.614.014 - Ssterilization 9 Load [id number] Implanted:Qty: 2 on 07/13/2017 by Jay Marc MD at [facility] Screw N/A: Spine Cervical Posterior SYNTHES-STRATEC- MAXIFACIAL 04.614.014 / STERILIZATI ON 9 LOAD [id number] / Screw Synapse Locking 04.614.508 - Ssterilization 9 Load [id number] Implanted:Qty: 8 on 07/13/2017 by Jay Marc MD at [facility] Screw N/A: Spine Cervical Posterior SYNTHES-STRATEC- SPINAL 04.614.508 / STERILIZATI ON 9 LOAD [id number] / 7.5mm X 45mm Screw Implanted:Qty: 2 on 04/20/2023 by Jay Marc MD at [facility] Screw N/A: Spine Lumbar MEDTRONIC- SOFAMOR DANEK 02/21/2028 [id number] / / [id number] 7.5mm X 45mm Screw Implanted:Qty: 3 on 04/20/2023 by Jay Marc MD at [facility] Screw N/A: Spine Lumbar MEDTRONIC- SOFAMOR DANEK 02/17/2028 [id number] / / [id number] 7.5mm X 45mm Screw Implanted:Qty: 1 on 04/20/2023 by Jay Marc MD at [facility] Screw N/A: Spine Lumbar MEDTRONIC- SOFAMOR DANEK 03/28/2028 [id number] / / [id number] Screw Solera 5.5/6.0 Breakoff 3226777 - [id number] Implanted:Qty: 6 on 04/20/2023 by Jay Marc MD at [facility] Screw N/A: Spine Lumbar MEDTRONIC- SOFAMOR DANEK [id number] / / LAOD 37, 04/17/23 Lane Coated Multi-Axial Screw For 5.5/6.0 Rods [id number] Implanted:Qty: 3 on 03/26/2024 by Jay Marc MD at [facility] Screw N/A: Spine Thoracic MEDTRONIC - COVIDIEN 08/30/2028 [id number] / / [id number] Lane Coated Multi-Axial Screw For 5.5/6.0 Rods [id number] Implanted:Qty: 1 on 03/26/2024 by Jay Marc MD at [facility] Screw N/A: Spine Thoracic MEDTRONIC - COVIDIEN 10/20/2027 [id number] / / [id number] Lane Coated Multi-Axial Screw For 5.5/6.0 Rods [id number] Implanted:Qty: 4 on 03/26/2024 by Jay Marc MD at [facility] Screw N/A: Spine Thoracic MEDTRONIC - COVIDIEN 01/06/2029 [id number] / / [id number] Screw Solera 5.5/6.0 Breakoff 5773706 - [id number] Implanted:Qty: 8 on 03/26/2024 by Jay Marc MD at [facility] Screw N/A: Spine Thoracic MEDTRONIC- SOFAMOR DANEK [id number] / / LOAD 13 STERILIZED 03/20/2024 Sealant Floseal W/ Adptr 10ml 0083802 - [id number] Implanted:Qty: 1 on 05/05/2015 by Jay Marc MD at [facility] Sealant N/A: Back BRITTON- BIOSCIENCE 07/16/2016 4499122 / / [id number] Sealant Floseal W/ Adptr 10ml 9027967 - [id number] Implanted:Qty: 1 on 05/05/2015 by Jay Marc MD at [facility] Sealant N/A: Back BRITTON- BIOSCIENCE [id number] 06/16/2016 6122467 / / [id number] Sealant Floseal 10ml 3762511 - [id number] Implanted:Qty: 2 on 11/29/2016 by Jay Marc MD at [facility] Sealant N/A: Spine Cervical Anterior BRITTON- BIOSCIENCE [id number] 01/20/2018 5548104 / / [id number] Log 44746 - Bladder Slings And Tapes - 1 - Sling Gynecare Tvt Exact Tvtrl Implanted:Qty: 1 on 04/18/2010 at [facility] Sling N/A: Urethra J&J- ETHICON INC 01/16/2011 TVTRL / / [id number] Allgrft Spcr Lmnry T-Plif 11mm 476467 - [id number] Implanted:Qty: 1 on 05/05/2015 by Jay Marc MD at [facility] Spacer N/A: Spine Lumbar MUSCULOSKELETAL TRANSPLANT FOU 09/30/2018 606625 / [id number] / Description:L5-S1This MTF sp acer was processed on requisition,[id number]. Bone Chips Canc 30ml 90538578 - [id number] Implanted:Qty: 1 on 04/20/2023 by Jay Marc MD at [facility] Tissue N/A: Spine Lumbar ALLOSOURCE [id number] 11/20/2027 [id number] / [id number] / Bone Chips Canc 30ml [id number] - [id number] Implanted:Qty: 1 on 04/20/2023 by Jay Marc MD at [facility] Tissue N/A: Spine Lumbar ALLOSOURCE [id number] 11/06/2027 [id number] / [id number] / Explanted Type Area Bridge Maintenance Worker Device Identifier Shelf Expiration Date Model / Serial / Lot Harsh Xpdm Crv W/Line 40mm - Stray Sterilized May 05, 2015,Load 26 Implanted:Qty: 2 on 05/05/2015 by Jay Marc MD at [facility] Explanted:Qty: 2 on 04/20/2023 by Jya Marc MD at [facility] Harsh N/A: Spine Lumbar J&J- DEPUY ORTHOP[employer]ED[employer] INC / TRAY STERILIZED Apr,LOAD 26 / Description:Depuy spinal zaheer dwrg was processed on requisition,[id number]. Screw Exp Poly 7x40mm [id number] - Stray Sterilized May 05, 2015,Load 26 Implanted:Qty: 2 on 05/05/2015 by Jay Marc MD at [facility] Explanted:Qty: 2 on 04/20/2023 by Jay Marc MD at [facility] Screw N/A: Spine Lumbar J&J- DEPUY SPINE INC / TRAY STERILIZED Apr,LOAD 26 / Setscrew Inner - Stray Sterilized May 05, 2015,Load 26 Implanted:Qty: 4 on 05/05/2015 by Jay Marc MD at [facility] Explanted:Qty: 4 on 04/20/2023 by Jay Marc MD at [facility] Screw N/A: Spine Lumbar J&J- DEPUY SPINE INC / TRAY STERILIZED Apr,LOAD 26 / Screw Exp Poly 6x45mm [id number] - [id number] Implanted:Qty: 2 on 05/05/2015 by Jay Marc MD at [facility] Explanted:Qty: 2 on 04/20/2023 by Jay Marc MD at [facility] Screw N/A: Spine Lumbar J&J- DEPUY SPINE INC [id number] / / Description:Depuy spinal zaheer fantasma was processed on requisition,[id number]. Cervical Screw Explanted:Qty: 4 on 11/29/2016 by Jay Marc MD at [facility] Bilateral: Spine Cervical Anterior Description:unknown informat ion Cervical Plate Implanted:Qty: 1 Explanted:Qty: 1 on 11/29/2016 by Jay Marc MD at [facility] N/A: Spine Cervical Anterior Description:unknown informat ion Procedures Procedure Name Priority Date/Time Associated Diagnosis Comments COMPREHENSIVE METABOLIC PANEL Stat 10/12/2024 6:54 PM CDT CBC WITH DIFFERENTIAL Stat 10/12/2024 6:54 PM CDT MRI THORACIC W WO CONTRAST Routine 07/28/2024 2:41 PM CDT Postlaminectomy syndrome, thoracic region HEMOGLOBIN A1C Routine 04/06/2023 12:45 PM SAMPLE TESTER LIPID PANEL Routine 01/18/2020 3:14 PM SAMPLE TESTER MAMMO SCREEN BILAT W OR WO CAD Routine 04/15/2018 from Last 3 Months or Most Recently Relevant to Health Maintenance Results * (ABNORMAL) CBC WITH DIFFERENTIAL (10/12/2024 6:54 PM CDT) WBC 10.1(H) 4.0 - 9.8 K/uL 10/12/2024 7:23 PM CDT [facility] RBC 4.32 3.90 - 4.90 M/uL 10/12/2024 7:23 PM CDT [facility] HEMOGLOBIN 12.7 11.8 - 14.8 g/dL 10/12/2024 7:23 PM CDT [facility] HEMATOCRIT 39.7 35.5 - 44.0 % 10/12/2024 7:23 PM CDT [facility] MCV 91.9 82.0 - 99.0 fL 10/12/2024 7:23 PM CDT [facility] MCH 29.4 27.2 - 32.6 pg 10/12/2024 7:23 PM CDT [facility] MCHC 32.0 31.5 - 35.5 g/dL 10/12/2024 7:23 PM CDT [facility] RDW 13.9 11.5 - 14.5 % 10/12/2024 7:23 PM CDT [facility] RDW-STDEV 47.3 37.1 - 48.7 fL 10/12/2024 7:23 PM CDT [facility] PLATELETS 318 140 - 350 K/uL 10/12/2024 7:23 PM CDT [facility] MPV 11.3 9.3 - 12.4 fL 10/12/2024 7:23 PM CDT [facility] NEUTROPHILS 51 % 10/12/2024 7:23 PM CDT [facility] LYMPHOCYTES 36 % 10/12/2024 7:23 PM CDT [facility] MONOCYTES 9 % 10/12/2024 7:23 PM CDT [facility] EOSINOPHILS 3 % 10/12/2024 7:23 PM CDT [facility] BASOPHILS 1 % 10/12/2024 7:23 PM CDT [facility] IMMATURE GRANULOCYTES 0 % 10/12/2024 7:23 PM CDT [facility] NEUTROPHIL ABSOLUTE 5.14 1.90 - 7.00 K/uL 10/12/2024 7:23 PM CDT [facility] LYMPHOCYTE ABSOLUTE 3.59 0.70 - 4.50 K/uL 10/12/2024 7:23 PM CDT [facility] MONOCYTE ABSOLUTE 0.90 0.10 - 1.30 K/uL 10/12/2024 7:23 PM CDT [facility] EOSINOPHIL ABSOLUTE 0.33 0.00 - 0.70 K/uL 10/12/2024 7:23 PM CDT [facility] BASOPHILS ABSOLUTE 0.09 0.00 - 0.20 K/uL 10/12/2024 7:23 PM CDT [facility] IMMATURE GRANULOCYTES ABSOLUTE 0.03 0.00 - 0.03 K/uL 10/12/2024 7:23 PM CDT [facility] Blood Venipuncture / Unknown 10/12/2024 6:54 PM CDT 10/12/2024 7:03 PM CDT us Chelsy Knight MD HEMATOLOGY ORDERABLES Final Resu lt [facility] CLIA# [id number] [address] [facility] [place] [address] * (ABNORMAL) COMPREHENSIVE METABOLIC PANEL (10/12/2024 6:54 PM CDT) SODIUM 137 136 - 145 mmol/L 10/12/2024 7:32 PM CDT [facility] . [place] POTASSIUM 4.3 3.5 - 5.0 mmol/L 10/12/2024 7:32 PM CDT [facility] - . [facility] CHLORIDE 101 98 - 107 mmol/L 10/12/2024 7:32 PM CDT [facility] CO2 26 22 - 29 mmol/L 10/12/2024 7:32 PM CDT [facility] . [place] CALCIUM 9.0 8.6 - 10.2 mg/dL 10/12/2024 7:32 PM CDT [facility] BUN 15 8 - 23 mg/dL 10/12/2024 7:32 PM CDT [facility] - . [facility] CREATININE 1.06(H) 0.51 - 0.95 mg/dL 10/12/2024 7:32 PM CDT [facility] . [place] GLUCOSE 129(H) 74 - 99 mg/dL 10/12/2024 7:32 PM [facility] TOTAL PROTEIN 6.8 6.7 - 8.6 g/dL 10/12/2024 7:32 PM [facility] ALBUMIN 3.9 3.5 - 5.2 g/dL 10/12/2024 7:32 PM [facility] BILIRUBIN TOTAL 0.2 0.0 - 1.1 mg/dL 10/12/2024 7:32 PM [facility] ALKALINE PHOSPHATASE 107(H) 35 - 104 U/L 10/12/2024 7:32 PM [facility] AST 38(H) <33 U/L 10/12/2024 7:32 PM [facility] ALT 47(H) <34 U/L 10/12/2024 7:32 PM [facility] GFR 59(L) >=60 mL/min/1.7 3 sq meter 10/12/2024 7:32 PM [facility] Comment:eGFR calculated with 2020 CKD-EPI equation. Vegetarian diet, extremely high or low muscle mass, and may affect results. Cystatin C with Glomerular Filtration Rate is a suitable alternative for these patients. ANION GAP 10 8 - 16 mmol/L 10/12/2024 7:32 PM [facility] Blood Venipuncture / Unknown 10/12/2024 6:54 PM CDT 10/12/2024 7:03 PM CDT Narrative [facility] - 10/12/2024 7:32 PM CDT Samples containing indocyanine green cause interferences on Total and/or Direct Bilirubin and must not be measured. us Chelsy Knight MD CHEMISTRY ORDERABLES Final Resul t [facility]# [id number] [address] [facility] [place] [id number] * MRI THORACIC W WO CONTRAST (07/28/2024 [...] foraminal stenosis. DICTATION LOCATION: Location 1 - [facility] Jay Marc MD MR ORDERABLES Final Result * (ABNORMAL) HEMOGLOBIN A1C (04/06/2023 12:45 PM [facility]) HEMOGLOBIN A1C 8.0(H) <5.7 % 04/06/2023 1:[address] [address] [facility] EST. AVG GLUCOSE, A1C 183 mg/dL 04/06/2023 1:[address] [facility] Blood Venipuncture / Unknown 04/06/2023 12:45 PM [facility] 04/06/2023 1:32 PM [facility] Narrative [facility] - 04/06/2023 1:59 PM [facility] HGB A1C INTERPRETATION NORMAL: <5.7% PRE-DIABETES: 5.7 - 6.4% DIABETES: 6.5% OR GREATER Jay Marc MD CHEMISTRY ORDERABLES Final Resu lt [facility]# [id number] [address] [place] [id number] * (ABNORMAL) LIPID PANEL (01/18/2020 3:14 PM [facility]) Pathologist [facility] CHOLESTEROL 170 <200 mg/dL 01/19/2020 6:25 AM [facility] [employer] [facility] TRIGLYCERIDE 254(H) <150 mg/dL 01/19/2020 6:25 AM [facility] [employer] [facility] HDL 36(L) 40 - 59 mg/dL 01/19/2020 6:25 AM [facility] [employer] [facility] LDL CALCULATED 83 <100 mg/dL 01/19/2020 6:25 AM [facility] [employer] [facility] NON-HDL CHOLESTEROL 134(H) <130 mg/dL 01/19/2020 6:25 AM [facility] [employer] [facility] Blood Venipuncture / Unknown 01/18/2020 3:14 PM SAMPLE TESTER 01/18/2020 3:25 PM [facility] [employer] [facility] - 01/19/2020 6:25 AM S[facility] TE[employer] TOTAL CHOLESTEROL mg/dL Desirable <200 Borderline high [...] Ventura MD CHEMISTRY ORDERABLES Fi nal Result [facility] [employer] [facility]# [id number] [address] [place] [id number] * MAMMO SCREEN BILAT W OR WO CAD (04/15/2018) Anatomical Region Laterality Modality Breast Bilateral Mammography us Abstract Provider MAMMO ORDERABLES Edited Result - Final from Last 3 Months or Most Recently Relevant to Health Maintenance Insurance MEDICARE PART A AND B BC SUPP RX [employer] Medicare Part D RX [employer] PLANS (INTERNAL) [facility] Plans Advance Directives For more information, please contact: [phone] * Full Code (Latest Code Status on [...] 6:21 PM 04/27/2023 11:58 AM Care Teams Metal Template Maker Relationship Specialty Start Date End Date Naveed Fernandez MD PCP - General Internal Medicine 04/21/23 Flori Mcdonald Nurse Practitioner Pulmonology 04/06/23
--- OUTSIDE RECORDS SUMMARY | 2024-10-14 10:32 | XMS_ITS | Clinical Summary ---
Author Organization [facility] Address [address] [place] [address] Care Team Providers Care Student Teaching Coordinator Name Role Phone Unavailable Primary Care Provider [...]
--- OUTSIDE RECORDS SUMMARY | 2024-10-14 10:32 | XMS_ITS | Clinical Summary ---
Author Organization [facility] Address [address] [place] [address] Phone Care Team Providers Care Research Biostatistician Name Role Phone Afshin Willis MD Unavailable [phone] Kenyatta Comer MD Primary Care Provider [phone] Sumanth Chan MD Unavailable Allergies Active Allergy Reactions Criticality Noted Date Comments [place] Other (see Comments) 01/31/2015 Other Itching 02/24/2015 [...] Date Smoking Tobacco: Every Day Cigarettes 0.8 49.6 Started: 1975 Smokeless Tobacco: Never Alcohol Use [...] CAD W VERA Routine 04/15/2018 1:04 PM BUNDLE SORTER Encounter for screening mammogram for malignant neoplasm of breast CT CHEST W CONTRAST STAT 06/23/2015 8 :04 PM CDT from Last 3 Months or Most Recently Relevant to Health Maintenance Results * KEISHA SCREENING BILATERAL DIGITAL W CAD W VERA (04/15/2018 1:04 PM BUNDLE SORTER) Anatomical Region Laterality Modality breast Bilateral Mammography 04/15/2018 6:06 AM BUNDLE SORTER Narrative 05/08/2018 9:53 AM BUNDLE SORTER - KEISHA SCREENING BILATERAL DIGITAL W CAD W VERA BILATERAL DIGITAL SCREENING MAMMOGRAM 3D/2D WITH CAD WITH MEDIOLATERAL OBLIQUE CRANIOCAUDAL: 04/15/2018 The study was acquired using digital technology and interpreted from soft copy. Current study was also evaluated with [employer]D version 7.2. CLINICAL: Routine screening. Patient has no complaints. No personal history of cancer. Mother with postmenopausal breast cancer. Sister with breast cancer. Maternal aunt had breast cancer. COMPARISONS: Comparison is made to exams dated: 04/10/2017, 11/10/2016, and 10/07/2015 [facility]. BREAST TISSUE:There are scattered fibroglandular densities in [...] exam. Electronically signed by: Yrn syed/regla:05/08/2018 08:57:19 Wrapper Layer: Sidra Buck)(Chen), [facility] letter sent: Normal Exam Reading location: [place] BI-RADS: 1 Negative Procedure Note Yrn Burr [...] to exams dated: 04/10/2017, 11/10/2016, and 10/07/2015 [facility]. BREAST TISSUE:There are scattered fibroglandular densities in [...] exam. Electronically signed by: Yrn syed/regla:05/08/2018 08:57:19 Wrapper Layer: Sidra Buck)(M), [facility] letter sent: Normal Exam Reading location: [facility] BI-RADS: 1 Negative Cher Garcia MD IMG [...] Recently Relevant to Health Maintenance Insurance MEDICARE [facility] Care Teams Research Biostatistician Relationship Specialty Start Date End Date Kenyatta Comer MD [address] [place] [address] [place] [id number] PCP - General Internal Medicine 03/02/17 Afshin Willis MD General Surgery 05/17/16 Sumanth Chan MD [address] [address] Consulting Physician Colon and Rectal Surgery 06/10/24
--- OUTSIDE RECORDS SUMMARY | 2024-10-14 10:32 | XMS_ITS | Encounter Summary ---
Author Organization [facility] Address [place] [address] Care Team Providers Care Supplier Quality Engineer Name Role Phone Chago Randolph MD Unavailable Zachary Hurley MD Unavailable [phone] Naveed Fernandez MD Primary Care Provider [phone] Osvaldo Feldman MD Unavailable Aminah Cheung OD Unavailable Flori Sotelo Unavailable Kostas Lr MD Unavailable Jay Marc MD Unavailable Bonita Cotto NP Unavailable Encounter Details Date Type Department Care Team (Late st Contact Info) Description 10/01/2024 Results Follow-Up [facility] [address] [place] [address] Naveed Fernandez MD [address] [place], [place] [id number] T3, free, T4, free, TSH Social History Tobacco Use Types Packs/Day Years Used Date Smoking Tobacco: Every Day Cigarettes 1 47.6 Started: 03/19/1977 Smokeless Tobacco: Never Comments:40 pack/years Alcohol Use Standard Drinks/Week Comments Not Currently 0 (1 standard drink = 0.6 oz pur e alcohol) Social Connection and Isolation Panel [NHANES] A nswer Date Recorded Frequency of Communication with Friends and Fami ly Not on file 01/30/2020 Frequency of Social Gatherings with Friends and Family Not on file 01/30/2020 How often do you attend jehovah's witness or temple serv ices? Never 01/30/2020 Do you belong to any clubs o r organizations such as jehovah's witness groups, unions, fraternal or athletic groups, or [...] on file Legal Sex Female 1:21 PM ELECTRONIC DEVICE REPAIRER Gender Identity Female 05/05/2022 8:09 AM ELECTRONIC DEVICE REPAIRER Sexual Orientation Straight 11/04/2018 1: 20 PM CDT Occupation Industry Job Start Date Job End Date disabled Not on file Not on file Not on file documented as of this encounter Miscellaneous Notes * Result Encounter Note - Naveed Fernandez MD - 10/01/2024 8:20 PM CDT Results normal thyroid function labs (TSH, free T4, free T3) [facility] documented in this encounter Plan of Treatment Not on file documented as of this encounter Visit Diagnoses Not on filedocumented in this encounter Care Teams Supplier Quality Engineer Relationship Specialty Start Date End Date Naveed Fernandez MD [address] [place] [address] PCP - General Internal Medicine 10/14/21 [place] [address] [address] [facility] [address] [place] [address] Consulting Physician Endocrinology Diabetes & Metabolism 01/21/19 [place] [address] [address] [facility] [address] [place] [address] Referring Physician Psychiatry 01/21/19 [place] [address] [facility] [address] [place] [address] Consulting Physician Pain Management 09/25/22 Aminah Cheung OD [address] [place] [address] Consulting Physician Optometry 01/18/23 Flori Sotelo PA [address] [place] [id number] Physician Aerospace Project Engineer Pulmonary Disease 01/26/24 Kostas Lr MD [address] [place] [address] Consulting Physician Cardiology 02/22/24 Jay Marc MD [address] [place] [address] Surgeon Orthopedic Surgery 04/21/24 Bonita Cotto NP [address] [place] [address] Nurse Practitioner Family Medicine 09/04/24 documented as of this encounter
--- OUTSIDE RECORDS SUMMARY | 2024-10-14 10:32 | XMS_ITS | Encounter Summary ---
Author Organization [facility] Address [address] [place] [address] Care Team Providers Care Fire Regulator Name Role Phone Naveed Fernandez MD Primary Care Provider Unavail able Encounter Details Date Type Department Care Team (Late st Contact Info) Description 09/29/2003 Inpatient Historical HIS PATIENT IN A BED Jarad Neal MD NO ADDRESS ON FILE Franco Caraballo MD [address] [place] [address] ABDOMINAL PAIN UNSPEC SITE (Primary Dx) Social History Tobacco Use Types Packs/Day Years Used Date Smoking Tobacco: Never Assessed Comments Unknown Sex and Gender Information Value Date Recorded Sex Assigned at Female 01/14/2024 8:12 PM CDT Legal Sex Female 4:52 AM RECORDING ARTIST Gender Identity Female 01/14/2024 8:12 PM CDT Sexual Orientation Choose not to disclose 2023 8:12 PM CDT documented as of this encounter Plan of Treatment Not on file documented as of this encounter Visit Diagnoses Diagnosis Abdominal pain, unspecified site- Primary documented in this encounter Additional Health Concerns Infection Onset Date Last Indicated Resolved Time R/O Respiratory 02/10/2024 02/10/2024 02/10/2024 8 :05 PM RECORDING ARTIST R/O Respiratory 03/31/2024 03/31/2024 03/31/2024 5 :16 PM RECORDING ARTIST COVID-19 03/31/2024 03/31/2024 04/20/2024 1:16 AM RECORDING ARTIST R/O C. diff 04/01/2024 04/01/2024 04/02/2024 3:00 AM RECORDING ARTIST documented as of this encounter Care Teams Fire Regulator Relationship Specialty Start Date End Date Naveed Fernandez MD PCP - General Internal Medicine 04/21/23 Flori Mcdonald Nurse Practitioner Pulmonology 04/06/23 documented as of this encounter
--- OUTSIDE RECORDS SUMMARY | 2024-10-14 10:32 | XMS_ITS | Encounter Summary ---
Author Organization [facility] Address [address] [place] [address] Care Team Providers Care Banquet Server Name Role Phone Naveed Fernandez MD Primary Care Provider Unavail able Reason for Visit * Reason Comments Back Pain Pt arrives to ED wit h c/o back pain and pain to surgery site. Pt reports she had a cyst on her spine removed back in March. Pt states she coughed hard and immediately began having pain. Tramadol last taken approx. 1.5 hours pts. A&Ox4. Encounter Details Date Type Department Care Team (Late st Contact Info) Description 10/12/2024 8:34 PM CDT - 10/12/2024 9:21 PM CDT Emergency [facility] Emergency Department [address] [place] [phone] [place] [address] [place] [address] Discharge Disposition: Left Against Medical Advice Social History Tobacco Use Types Packs/Day Years Used Date Smoking Tobacco: Former Cigarettes 1 40 Passive Smoke Exposure: Past Smokeless Tobacco: Never Alcohol Use Standard Drinks/Week Comments No 0 (1 standard drink = 0.6 oz pur e alcohol) Comments No Sex and Gender Information Value Date Recorded Sex Assigned at Female 01/14/2024 8:12 PM CDT Legal Sex Female 4:52 AM UNIFIED COMMUNICATIONS ENGINEER Gender Identity Female 01/14/2024 8:12 PM CDT Sexual Orientation Choose not to disclose 2023 8:12 PM CDT documented as of this encounter Last Filed Vital Signs Vital Sign Reading [...] Mass Index 41.35 10/12/2024 6:38 PM CDT documented in this encounter Medications at Time of Discharge losartan (COZAAR) 50 mg tablet Take 50 mg by mouth daily. propranoloL (INDERAL) 60 mg Tablet Take 60 mg by mouth 2 times daily. QUEtiapine (SEROquel) 300 mg tablet Take 300 mg by mouth daily at bedtime. albuterol sulfate HFA 90 mcg/actuation aerosol inhaler Take 2 Puffs by inhalation every 6 hours as needed for Shortness of Breath. 8.5 Gram 04/03/2024 2:51 PM UNIFIED COMMUNICATIONS ENGINEER 04/03/2024 cyclobenzaprine (FLEXERIL) 5 mg Tablet Take 1 Tablet (5 mg) by mouth 3 times daily as needed for Spasm. 90 Tablet 04/03/2024 2:51 PM UNIFIED COMMUNICATIONS ENGINEER 04/03/2024 albuterol (PROVENTIL,VENTOLIN ) 2.5 mg /3 mL (0.083 %) Solution for Nebulization Take 3 mL (2.5 mg) by inhalation every 6 hours as needed for Shortness of Breath or Wheezing. 90 mL 04/03/2024 2:51 PM UNIFIED COMMUNICATIONS ENGINEER 04/03/2024 predniSONE (DELTASONE) 20 mg tablet Starting 04/04: Take 2 Tablets (40 mg) by mouth daily with breakfast. 2 Tablet 04/03/2024 2:51 PM UNIFIED COMMUNICATIONS ENGINEER 04/04/2024 oxyCODONE (ROXICODONE) 10 mg tabletIndications:S pondylosis without myelopathy or radiculopathy, sacral and sacrococcygeal region Take 1 Tablet (10 mg) by mouth every 6 hours as needed for Pain. Max Daily Amount: 40 mg 20 Tablet 04/03/2024 2:51 PM UNIFIED COMMUNICATIONS ENGINEER 04/03/2024 polyethylene glycol 3350 (MIRALAX) 17 gram/dose Powder Starting 04/04: Dissolve 1 capful (17 Grams) in 8 ounces of fluid and drink by mouth once daily. mix as directed 510 Gram 04/03/2024 2:51 PM UNIFIED COMMUNICATIONS ENGINEER 04/04/2024 ketorolac tromethamine (TORADOL) 10 mg tablet Take 1 Tablet (10 mg) by mouth every 6 hours as needed for moderate pain. 20 Tablet 03/30/2024 1:16 PM UNIFIED COMMUNICATIONS ENGINEER 03/30/2024 CALCIUM CARBONATE-VITAMIN D3 ORAL Take by mouth. Breztri Aerosphere 160 mcg-9mcg-4.8mcg/act uation HFA aerosol inhaler Take by inhalation 2 times daily. diazePAM (VALIUM) 10 mg tablet Take 10 mg by mouth every 8 hours as needed for Anxiety. prochlorperazine maleate (COMPAZINE) 10 mg tablet Take 10 mg by mouth. 02/06/2024 ergocalciferol (VITAMIN D2) 50,000 unit capsule Take 50,000 Units by mouth every . 04/27/2023 desvenlafaxine (PRISTIQ) 100 mg Extended Release 24 hour tablet Take 100 mg by mouth daily. famciclovir (FAMVIR) 250 mg Tablet Take 250 mg by mouth 2 times daily. 05/11/2023 liothyronine (CYTOMEL) 5 mcg Tablet Take 2 Tablets (10 mcg) by mouth 2 times daily. 120 Tablet 04/26/2023 gabapentin (NEURONTIN) 300 mg capsule Take 2 Capsules (600 mg) by mouth 3 times daily. 180 Capsule 04/27/2023 Blood-Glucose Meter Use to check blood glucose once daily. 04/10/2023 lancets 32 gauge Use to test blood glucose once daily. 04/10/2023 naloxone (NARCAN) 4 mg/spray [place], Non-Aerosol Administer 1 [place] in each nostril. 01/23/2023 metFORMIN (GLUCOPHAGE) 500 mg tablet Take 500 mg by mouth 2 times daily with meals. LORAZEPAM ORAL Take 0.5 mg by mouth 3 times daily as needed for Other (See Comment). atorvastatin 40 mg tablet Take 40 mg by mouth daily at bedtime. nortriptyline 10 mg capsule Take 10 mg by mouth daily at bedtime. levothyroxine 137 mcg tablet Take 125 mcg by mouth daily in the morning. 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 documented as of this encounter ED Notes * Jonah Kidd RN - 10/12/2024 9:20 PM CDT Pt wanted to leave AMA. Explained risk of refusal and benefits of care. Patient still wanted to leave. IV removed. AMA form signs. Dr. Knight notified. * Jonah Kidd RN - 10/12/2024 8:47 PM CDT Chief Complaint Patient presents with Back Pain Pt arrives to ED with c/o back pain and pain to surgery site. Pt reports she had a cyst on her spine removed back in March. Pt states she coughed hard and immediately began having pain. Tramadol last taken approx. 1.5 hours pts. A&Ox4. A&Ox4. Had recent spinal fusion. Reports pain meds given in triage have worn off. Skin appropriate for ethnicity, warm and dry. Respirations even and unlabored. Speaks clear, full sentences without difficulty. Bed low and locked. Side rails up x2. Call light within reach. Patient placed on continuous pulse ox, cardiac monitoring, and intermittent blood pressures. documented in this encounter Plan of Treatment Not on file documented as of this encounter Procedures Procedure Name Priority Date/Time Associated Diagnosis Comments CBC WITH DIFFERENTIAL Stat 10/12/2024 6:54 PM CDT COMPREHENSIVE METABOLIC PANEL Stat 10/12/2024 6:54 PM CDT documented in this encounter Results * (ABNORMAL) COMPREHENSIVE METABOLIC PANEL (10/12/2024 6:54 PM CDT) SODIUM 137 136 - 145 mmol/L 10/12/2024 7:32 PM CDT [employer] [facility] POTASSIUM 4.3 3.5 - 5.0 mmol/L 10/12/2024 7:32 PM CDT [employer] [facility] CHLORIDE 101 98 - 107 mmol/L 10/12/2024 7:32 PM CDT [employer] [facility] - [facility] [place] CO2 26 22 - 29 mmol/L 10/12/2024 7:32 PM CDT [employer] [facility] CALCIUM 9.0 8.6 - 10.2 mg/dL 10/12/2024 7:32 PM CDT [employer] [facility] BUN 15 8 - 23 mg/dL 10/12/2024 7:32 PM CDT [employer] [facility] CREATININE 1.06(H) 0.51 - 0.95 mg/dL 10/12/2024 7:32 PM CDT [employer] [facility] GLUCOSE 129(H) 74 - 99 mg/dL 10/12/2024 7:32 PM CDT [employer] [facility] TOTAL PROTEIN 6.8 6.7 - 8.6 g/dL 10/12/2024 7:32 PM CDT [employer] [facility] ALBUMIN 3.9 3.5 - 5.2 g/dL 10/12/2024 7:32 PM CDT [employer] [facility] BILIRUBIN TOTAL 0.2 0.0 - 1.1 mg/dL 10/12/2024 7:32 PM CDT [employer] [facility] ALKALINE PHOSPHATASE 107(H) 35 - 104 U/L 10/12/2024 7:32 PM CDT [employer] [facility] AST 38(H) <33 U/L 10/12/2024 7:32 PM CDT [employer] [facility] ALT 47(H) <34 U/L 10/12/2024 7:32 PM CDT [employer] [facility] GFR 59(L) >=60 mL/min/1.7 3 sq meter 10/12/2024 7:32 PM CDT [employer] [facility] - [facility] [place] Comment:eGFR calculated with 2020 CKD-EPI equation. Vegetarian diet, extremely high or low muscle mass, and may affect results. Cystatin C with Glomerular Filtration Rate is a suitable alternative for these patients. ANION GAP 10 8 - 16 mmol/L 10/12/2024 7:32 PM CDT [facility] Blood Venipuncture / Unknown 10/12/2024 6:54 PM CDT 10/12/2024 7:03 PM CDT [facility] - 10/12/2024 7:32 PM CDT Samples containing indocyanine green cause interferences on Total and/or Direct Bilirubin and must not be measured. Chelsy Knight MD CHEMISTRY ORDERABLES Final Resul t [facility] [employer] [facility]# [id number] [address] [place] [address] * (ABNORMAL) CBC WITH DIFFERENTIAL (10/12/2024 6:54 PM CDT) WBC 10.1(H) 4.0 - 9.8 K/uL 10/12/2024 7:23 PM CDT [facility] RBC 4.32 3.90 - 4.90 M/uL 10/12/2024 7:23 PM CDT [facility] HEMOGLOBIN 12.7 11.8 - 14.8 g/dL 10/12/2024 7:23 PM CDT [facility] HEMATOCRIT 39.7 35.5 - 44.0 % 10/12/2024 7:23 PM CDT [facility] MCV 91.9 82.0 - 99.0 fL 10/12/2024 7:23 PM CDT [facility] MCH 29.4 27.2 - 32.6 pg 10/12/2024 7:23 PM CDT [facility] MCHC 32.0 31.5 - 35.5 g/dL 10/12/2024 7:23 PM CDT [facility] RDW 13.9 11.5 - 14.5 % 10/12/2024 7:23 PM CDT [employer] [facility] RDW-STDEV 47.3 37.1 - 48.7 fL 10/12/2024 7:23 PM CDT [employer] [facility] - . [facility] PLATELETS 318 140 - 350 K/uL 10/12/2024 7:23 PM CDT [employer] [facility] - . [facility] MPV 11.3 9.3 - 12.4 fL 10/12/2024 7:23 PM CDT [employer] [facility] - . [facility] NEUTROPHILS 51 % 10/12/2024 7:23 PM CDT [employer] [facility] [place] LYMPHOCYTES 36 % 10/12/2024 7:23 PM CDT [employer] [facility] [place] MONOCYTES 9 % 10/12/2024 7:23 PM CDT [employer] [facility] EOSINOPHILS 3 % 10/12/2024 7:23 PM CDT [employer] [facility] [place] BASOPHILS 1 % 10/12/2024 7:23 PM CDT [employer] [facility] - . [facility] IMMATURE GRANULOCYTES 0 % 10/12/2024 7:23 PM CDT [employer] [facility] . [place] NEUTROPHIL ABSOLUTE 5.14 1.90 - 7.00 K/uL 10/12/2024 7:23 PM CDT [employer] [facility] - . [facility] LYMPHOCYTE ABSOLUTE 3.59 0.70 - 4.50 K/uL 10/12/2024 7:23 PM CDT [employer] [facility] - . [facility] MONOCYTE ABSOLUTE 0.90 0.10 - 1.30 K/uL 10/12/2024 7:23 PM CDT [employer] [facility] - . [place] EOSINOPHIL ABSOLUTE 0.33 0.00 - 0.70 K/uL 10/12/2024 7:23 PM CDT [employer] [facility] - . [place] BASOPHILS ABSOLUTE 0.09 0.00 - 0.20 K/uL 10/12/2024 7:23 PM CDT [employer] [facility] - . [facility] IMMATURE GRANULOCYTES ABSOLUTE 0.03 0.00 - 0.03 K/uL 10/12/2024 7:23 PM CDT [employer] [facility] - [facility] [place] Blood Venipuncture / Unknown 10/12/2024 6:54 PM CDT 10/12/2024 7:03 PM CDT Chelsy Knight MD HEMATOLOGY ORDERABLES Final Resu lt [facility]# [id number] [address] [place] [address] documented in this encounter Visit Diagnoses Not on filedocumented in this encounter Administered Medications Inactive Administered Medications - up to 3 most recent administrations Medication Order MAR Action Action Date Dose Rate Site morphine 4 mg/mL injection 4 mg 4 mg, IV, EVERY 2 HOURS PRN, 2 doses, Starting on 10/12/24 at 1858, Until 10/12/24 at 2322, Pain, Routine Given 10/12/2024 7:20 PM CDT 4 mg ondansetron (ZOFRAN) 4 mg/2 mL injection 4 mg 4 mg, IV, ONE TIME ONLY, 1 dose, On 10/12/24 at 1900, Routine Given 10/12/2024 7:00 PM CDT 4 mg documented in this encounter Active and Recently Administered Medications Times are shown in CDT. Scheduled Medication Order 10/10/2024 10/11/2024 10/12/2024 ondansetron (ZOFRAN) 4 mg/2 mL injection 4 mg (COMPLETED) 4 mg, IV, ONE TIME ONLY, 1 dose, On 10/12/24 at 1900, Routine 1900 (Given - Provid er: Whit Cuba RN) PRN Medication Order 10/10/2024 10/11/2024 10/12/2024 morphine 4 mg/mL injection 4 mg 4 mg, IV, EVERY 2 HOURS PRN, 2 doses, Starting on 10/12/24 at 1858, Until 10/12/24 at 2322, Pain, Routine 1920 (Given - Provid er: Whit Cuba RN) documented in this encounter Care Teams Banquet Server Relationship Specialty Start Date End Date Naveed Fernandez MD PCP - General Internal Medicine 04/21/23 Flori Mcdonald Nurse Practitioner Pulmonology 04/06/23 documented as of this encounter
--- OUTSIDE RECORDS SUMMARY | 2024-10-14 10:32 | XMS_ITS | Encounter Summary ---
Author Organization [facility] Address [address] [place] [address] Care Team Providers Care Order Desk Caller Name Role Phone Naveed Fernandez MD Primary Care Provider Unavail able Encounter Details Date Type Department Care Team (Late st Contact Info) Description 04/17/2002 Inpatient Historical HIS PATIENT IN A BED Clint Vazquez MD [address] [place] [phone] MANIC-DEPRESSIVE NEC (CMS/HCC) (Primary Dx) Social History Tobacco Use Types Packs/Day Years Used Date Smoking Tobacco: Never Assessed Comments Unknown Sex and Gender Information Value Date Recorded Sex Assigned at Female 01/14/2024 8:12 PM CDT Legal Sex Female 4:52 AM OIL HEATER OPERATOR Gender Identity Female 01/14/2024 8:12 PM CDT Sexual Orientation Choose not to disclose 2023 8:12 PM CDT documented as of this encounter Plan of Treatment Not on file documented as of this encounter Visit Diagnoses Diagnosis Other bipolar disorders- Primary documented in this encounter Additional Health Concerns Infection Onset Date Last Indicated Resolved Time R/O Respiratory 02/10/2024 02/10/2024 02/10/2024 8 :05 PM OIL HEATER OPERATOR R/O Respiratory 03/31/2024 03/31/2024 03/31/2024 5 :16 PM OIL HEATER OPERATOR COVID-19 03/31/2024 03/31/2024 04/20/2024 1:16 AM OIL HEATER OPERATOR R/O C. diff 04/01/2024 04/01/2024 04/02/2024 3:00 AM OIL HEATER OPERATOR documented as of this encounter Care Teams Order Desk Caller Relationship Specialty Start Date End Date Naveed Fernandez MD PCP - General Internal Medicine 04/21/23 Flori Mcdonald Nurse Practitioner Pulmonology 04/06/23 documented as of this encounter
--- OUTSIDE RECORDS SUMMARY | 2024-10-14 10:32 | XMS_ITS | Encounter Summary ---
Author Organization [facility] Healthcare Address [address] [place] [address] Care Team Providers Care Hair Or Beauty Salon Assistant Name Role Phone Chago Randolph MD Unavailable Christelle Huertas DO Primary Care Provider [phone] Zachary Hurley MD Unavailable [phone] Betzaida Subramanian PEWTER FINISHER Unavailable Naveed Fernandez MD Primary Care Provider Yony Barker MD Unavailable [phone] Osvaldo Feldman MD Unavailable Aminah Cheung OD Unavailable Jay Marc MD Unavailable Flori Sotelo Unavailable [phone] Kostas Lr MD Unavailable [phone] Jay Marc MD Unavailable [phone] Bonita Cotto PEWTER FINISHER Unavailable Reason for Visit * Reason Onset Date Comments Scheduling Appointments 08/04/2020 Confirmi ng mammogram appt- no answer Encounter Details Date Type Department Care Team (Late st Contact Info) Description 08/04/2020 Telephone [facility] [address] [place] [id number] Emma Blank RT Scheduling Appointments (Confirming mammogram appt- no answer ) Social History Tobacco Use Types Packs/Day Years Used Date Smoking Tobacco: Heavy Smoker Cigarettes 1 47.6 Started: 03/19/1977 Smokeless Tobacco: [...] file 01/30/2020 How often do you attend gnosticism or pentecostalism serv ices? Never 01/30/2020 Do you belong to any clubs o r organizations such as gnosticism groups, unions, fraternal or athletic groups, or [...] on file Legal Sex Female 1:21 PM BIOLOGY INTERN Gender Identity Female 05/05/2022 8:09 AM BIOLOGY INTERN Sexual Orientation Straight 11/04/2018 1: 20 PM [...] documented as of this encounter Care Teams Hair Or Beauty Salon Assistant Relationship Specialty Start Date End Date Christelle Huertas [address] [facility] [address] [place] [address] PCP - General Family Medicine 01/21/19 09/11/21 Naveed Fernandez MD [address] [place] [address] PCP - General Internal Medicine 10/14/21 [place] [address] [facility] [address] [place] [address] Consulting Physician Endocrinology Diabetes & Metabolism 01/21/19 [place] [address] [address] [facility] [address] [place] [address] Referring Physician Psychiatry 01/21/19 Betzaida Subramanian NP [address] [facility] [address] JES[address]S Hu [facility] [address] [place] [address] Nurse Practitioner Obstetrics and Gynecology 01/04/21 04/20/24 Yony Barker MD [address] [facility] [address] [place] [address] Referring Physician Pain Management 06/16/22 10/25/22 [place] [address] [facility] [address] [place] [address] Consulting Physician Pain Management 09/25/22 Aminah Cheung OD [address] [place] [address] Consulting Physician Optometry 01/18/23 Jay Marc MD [address] [place] [phone] Surgeon Orthopedic Surgery 04/20/23 04/20/24 Flori Sotelo PA [address] [id number] Physician Back Winder Pulmonary Disease 01/26/24 Kostas Lr MD [address] [place], [place] [id number] Consulting Physician Cardiology 02/22/24 Jay Marc MD [address] [place] [address] Surgeon Orthopedic Surgery 04/21/24 Bonita Cotto NP 1 [place] [address] Nurse Practitioner Family Medicine 09/04/24 documented as of this encounter
--- OUTSIDE RECORDS SUMMARY | 2024-10-14 10:32 | XMS_ITS | Encounter Summary ---
Author Organization [facility] Address [address] [place] [address] Care Team Providers Care Aviation Technical Systems Specialist Name Role Phone Naveed Fernandez MD Primary Care Provider Unavail able Encounter Details Date Type Department Care Team (Late st Contact Info) Description 09/30/2003 Outpatient [facility] [address] [place] [address] David Young MD [address] [address] Social History Tobacco Use Types Packs/Day Years Used Date Smoking Tobacco: Never Assessed Comments Unknown Sex and Gender Information Value Date Recorded Sex Assigned at Female 01/14/2024 8:12 PM CDT Legal Sex Female 4:52 AM RIVER AND LAKES BOATMAN Gender Identity Female 01/14/2024 8:12 PM CDT Sexual Orientation Choose not to disclose 2023 8:12 PM CDT documented as of this encounter Plan of Treatment Not on file documented as of this encounter Visit Diagnoses Not on filedocumented in this encounter Additional Health Concerns Infection Onset Date Last Indicated Resolved Time R/O Respiratory 02/10/2024 02/10/2024 02/10/2024 8 :05 PM RIVER AND LAKES BOATMAN R/O Respiratory 03/31/2024 03/31/2024 03/31/2024 5 :16 PM RIVER AND LAKES BOATMAN COVID-19 03/31/2024 03/31/2024 04/20/2024 1:16 AM RIVER AND LAKES BOATMAN R/O C. diff 04/01/2024 04/01/2024 04/02/2024 3:00 AM RIVER AND LAKES BOATMAN documented as of this encounter Care Teams Aviation Technical Systems Specialist Relationship Specialty Start Date End Date Naveed Fernandez MD PCP - General Internal Medicine 04/21/23 Flori Mcdonald Nurse Practitioner Pulmonology 04/06/23 documented as of this encounter
--- OUTSIDE RECORDS SUMMARY | 2024-10-14 10:32 | XMS_ITS | Encounter Summary ---
Author Organization [facility] Healthcare Address [facility] [place] [address] Care Team Providers Care Piano Bench Assembler Name Role Phone Chago Randolph MD Unavailable Zachary Hurley MD Unavailable Naveed Fernandez MD Primary Care Provider [phone] Osvaldo Feldman MD Unavailable Aminah Cheung OD Unavailable Flori Sotelo Unavailable Kostas Lr MD Unavailable Jay Marc MD Unavailable Bonita Cotto NP Unavailable [phone] Encounter Details Date Type Department Care Team (Late st Contact Info) Description 09/01/2024 Results Follow-Up [facility] Medical Group [facility] [address] [place] [address] Naveed Fernandez MD [address] [place], [place] [id number] T3, free, T4, free, TSH Social History [...] file 01/30/2020 How often do you attend hindu or restorationism serv ices? Never 01/30/2020 Do you belong to any clubs o r organizations such as hindu groups, unions, fraternal or athletic groups, or [...] on file Legal Sex Female 1:21 PM BRAND AMBASSADOR Gender Identity Female 05/05/2022 8:09 AM BRAND AMBASSADOR Sexual Orientation Straight 11/04/2018 1: 20 PM CDT Occupation Industry Job Start Date Job End Date disabled Not on file Not on file Not on file documented as of this encounter Plan of Treatment Not on file documented as of this encounter Visit Diagnoses Not on filedocumented in this encounter Care Teams Piano Bench Assembler Relationship Specialty Start Date End Date Naveed Fernandez MD [address] [place] [address] PCP - General Internal Medicine 10/14/21 [place] [address] [facility] [facility] [address] [place] [address] Consulting Physician Endocrinology Diabetes & Metabolism 01/21/19 [place] [address] [address] [facility] [address] [place] [address] Referring Physician Psychiatry 01/21/19 [place] [address] Epifanio [facility] [address] [place] [address] Consulting Physician Pain Management 09/25/22 Aminah Cheung OD [address] [place] [address] Consulting Physician Optometry 01/18/23 Flori Sotelo PA [address] [place] [address] Physician Product Inspection Supervisor Pulmonary Disease 01/26/24 Kostas Lr MD [address] [place] [address] Consulting Physician Cardiology 02/22/24 Jay Marc MD [address] [place] [address] Surgeon Orthopedic Surgery 04/21/24 Bonita Cotto NP 1 [place] [address] Nurse Practitioner Family Medicine 09/04/24 documented as of this encounter
--- OUTSIDE RECORDS SUMMARY | 2024-10-14 10:32 | XMS_ITS | Encounter Summary ---
Author Organization [facility] Address [address] [place] [address] Care Team Providers Care Document Specialist Name Role Phone Naveed Fernandez MD Primary Care Provider Unavail able Encounter Details Date Type Department Care Team (Late st Contact Info) Description 09/16/2003 Inpatient Historical HIS PATIENT IN A BED Franco Caraballo MD [address] [place] [address] NAUSEA WITH VOMITING (Primary Dx) Social History Tobacco Use Types Packs/Day Years Used Date Smoking Tobacco: Never Assessed Comments Unknown Sex and Gender Information Value Date Recorded Sex Assigned at Female 01/14/2024 8:12 PM CDT Legal Sex Female 4:52 AM HOP TRAINER Gender Identity Female 01/14/2024 8:12 PM CDT Sexual Orientation Choose not to disclose 2023 8:12 PM CDT documented as of this encounter Plan of Treatment Not on file documented as of this encounter Visit Diagnoses Diagnosis Nausea with vomiting- Primary documented in this encounter Additional Health Concerns Infection Onset Date Last Indicated Resolved Time R/O Respiratory 02/10/2024 02/10/2024 02/10/2024 8 :05 PM HOP TRAINER R/O Respiratory 03/31/2024 03/31/2024 03/31/2024 5 :16 PM HOP TRAINER COVID-19 03/31/2024 03/31/2024 04/20/2024 1:16 AM HOP TRAINER R/O C. diff 04/01/2024 04/01/2024 04/02/2024 3:00 AM HOP TRAINER documented as of this encounter Care Teams Document Specialist Relationship Specialty Start Date End Date Naveed Fernandez MD PCP - General Internal Medicine 04/21/23 Flori Mcdonald Nurse Practitioner Pulmonology 04/06/23 documented as of this encounter
--- OUTSIDE RECORDS SUMMARY | 2024-10-14 10:32 | XMS_ITS | Encounter Summary ---
Author Organization [facility] Address [address] [place] [address] Care Team Providers Care Osd Clerk Name Role Phone Naveed Fernandez MD Primary Care Provider Unavail able Encounter Details Date Type Department Care Team (Late st Contact Info) Description 09/30/2003 Outpatient [facility] Division of Neurology [address] [address] (Excluded Provider) [place] [address] [facility] [address] [place] [address] Social History Tobacco Use Types Packs/Day Years Used Date Smoking Tobacco: Never Assessed Comments Unknown Sex and Gender Information Value Date Recorded Sex Assigned at Female 01/14/2024 8:12 PM CDT Legal Sex Female 4:52 AM PLASTIC WORKER Gender Identity Female 01/14/2024 8:12 PM CDT Sexual Orientation Choose not to disclose 2023 8:12 PM CDT documented as of this encounter Plan of Treatment Not on file documented as of this encounter Visit Diagnoses Not on filedocumented in this encounter Additional Health Concerns Infection Onset Date Last Indicated Resolved Time R/O Respiratory 02/10/2024 02/10/2024 02/10/2024 8 :05 PM PLASTIC WORKER R/O Respiratory 03/31/2024 03/31/2024 03/31/2024 5 :16 PM PLASTIC WORKER COVID-19 03/31/2024 03/31/2024 04/20/2024 1:16 AM PLASTIC WORKER R/O C. diff 04/01/2024 04/01/2024 04/02/2024 3:00 AM PLASTIC WORKER documented as of this encounter Care Teams Osd Clerk Relationship Specialty Start Date End Date Naveed Fernandez MD PCP - General Internal Medicine 04/21/23 Flori Mcdonald Nurse Practitioner Pulmonology 04/06/23 documented as of this encounter
--- OUTSIDE RECORDS SUMMARY | 2024-10-14 10:32 | XMS_ITS | Encounter Summary ---
Author Organization [facility] Address [address] [place] [address] Care Team Providers Care Yeast Cake Cutter Name Role Phone Naveed Fernandez MD Primary Care Provider Unavail able Encounter Details Date Type Department Care Team (Late st Contact Info) Description 06/04/2023 Telephone [facility] [address] [place] [phone] [place] [id number] [place] [phone] Social History Tobacco Use Types Packs/Day Years Used Date Smoking Tobacco: Every Day Cigarettes 1 40 Passive Smoke Exposure: Past Smokeless Tobacco: Never Alcohol Use Standard Drinks/Week Comments No 0 (1 standard drink = 0.6 oz pur e alcohol) Comments No Sex and Gender Information Value Date Recorded Sex Assigned at Female 01/14/2024 8:12 PM CDT Legal Sex Female 4:52 AM RESEARCH GEOLOGIST Gender Identity Female 01/14/2024 8:12 PM CDT Sexual Orientation Choose not to disclose 2023 8:12 PM CDT documented as of this encounter Miscellaneous Notes * Telephone Encounter - Rand Abrams RN - 06/04/2023 3:45 PM CDT Call out to [facility] and spoke with eliza Cooley placed on hold. documented in this encounter Plan of Treatment Not on file documented as of this encounter Visit Diagnoses Not on filedocumented in this encounter Additional Health Concerns Infection Onset Date Last Indicated Resolved Time R/O Respiratory 02/10/2024 02/10/2024 02/10/2024 8 :05 PM RESEARCH GEOLOGIST R/O Respiratory 03/31/2024 03/31/2024 03/31/2024 5 :16 PM RESEARCH GEOLOGIST COVID-19 03/31/2024 03/31/2024 04/20/2024 1:16 AM RESEARCH GEOLOGIST R/O C. diff 04/01/2024 04/01/2024 04/02/2024 3:00 AM RESEARCH GEOLOGIST documented as of this encounter Care Teams Yeast Cake Cutter Relationship Specialty Start Date End Date Naveed Fernandez MD PCP - General Internal Medicine 04/21/23 Flori Mcdonald Nurse Practitioner Pulmonology 04/06/23 documented as of this encounter
--- OUTSIDE RECORDS SUMMARY | 2024-10-14 10:32 | XMS_ITS | Encounter Summary ---
Author Organization [facility] Address [address] [place] [address] Care Team Providers Care Manager Underwriting Name Role Phone Naveed Fernandez MD Primary Care Provider Unavail able Encounter Details Date Type Department Care Team (Late st Contact Info) Description 09/09/2003 Inpatient Historical HIS PATIENT IN A BED Franco Caraballo MD [address] [place] [address] FEMALE GENITAL SYMPTOMS NOS (Primary Dx) Social History Tobacco Use Types Packs/Day Years Used Date Smoking Tobacco: Never Assessed Comments Unknown Sex and Gender Information Value Date Recorded Sex Assigned at Female 01/14/2024 8:12 PM CDT Legal Sex Female 4:52 AM CHEST PAIN COORDINATOR Gender Identity Female 01/14/2024 8:12 PM CDT [...] Respiratory 02/10/2024 02/10/2024 02/10/2024 8 :05 PM CHEST PAIN COORDINATOR R/O Respiratory 03/31/2024 03/31/2024 03/31/2024 5 :16 PM CHEST PAIN COORDINATOR COVID-19 03/31/2024 03/31/2024 04/20/2024 1:16 AM CHEST PAIN COORDINATOR R/O C. diff 04/01/2024 04/01/2024 04/02/2024 3:00 AM CHEST PAIN COORDINATOR documented as of this encounter Care Teams Manager Underwriting Relationship Specialty Start Date End Date Naveed Fernandez MD PCP - General Internal Medicine 04/21/23 Flori Mcdonald Nurse Practitioner Pulmonology 04/06/23 documented as of this encounter
--- OUTSIDE RECORDS SUMMARY | 2024-10-14 10:32 | XMS_ITS | Encounter Summary ---
Author Organization [facility] Address [address] [place] [address] Phone Care Team Providers Care Survey Instrument Operator Name Role Phone Chago Randolph MD Unavailable Zachary Hurley MD Unavailable Betzaida Subramanian CABINET FINISHER Unavailable [phone] Naveed Fernandez MD Primary Care Provider Yony Barker MD Unavailable Osvaldo Feldman MD Unavailable Aminah Cheung OD Unavailable [phone] Jay Marc MD Unavailable Flori Sotelo Unavailable [phone] Kostas Lr MD Unavailable Jay Marc MD Unavailable Bonita Cotto CABINET FINISHER Unavailable [phone] Encounter Details Date Type Department Care Team (Late st Contact Info) Description 10/25/2021 Orders Only [facility] [address] [place] [address] Naveed Fernandez MD [address] [place] [address] Social History Tobacco Use Types Packs/Day Years [...] file 01/30/2020 How often do you attend restorationist or taoist serv ices? Never 01/30/2020 Do you belong to any clubs o r organizations such as restorationist groups, unions, fraternal or athletic groups, or [...] on file Legal Sex Female 1:21 PM SURGICAL MANAGER Gender Identity Female 05/05/2022 8:09 AM SURGICAL MANAGER Sexual Orientation Straight 11/04/2018 1: 20 [...] documented as of this encounter Care Teams Survey Instrument Operator Relationship Specialty Start Date End Date Naveed Fernandez MD [address] [place] [address] PCP - General Internal Medicine 10/14/21 [place] [address] [facility] [address] [place] [address] Consulting Physician Endocrinology Diabetes & Metabolism 01/21/19 [place] [address] [facility] [address] [place] [address] Referring Physician Psychiatry 01/21/19 Betzaida Subramanian NP [address] [facility] [address] JES[address]S Hu [facility] [address] [place] [address] Nurse Practitioner Obstetrics and Gynecology 01/04/21 04/20/24 Yony Barker MD [address] [facility] [address] [place] [address] Referring Physician Pain Management 06/16/22 10/25/22 [place] [address] [place] [address] Consulting Physician Pain Management 09/25/22 Aminah Cheung OD [address] [place] [address] Consulting Physician Optometry 01/18/23 Jay Marc MD [address] [place] [address] Surgeon Orthopedic Surgery 04/20/23 04/20/24 Flori Soteol PA [address] [place], [place] [address] Physician Aoc Operations Intelligence Chief Pulmonary Disease 01/26/24 Kostas Lr MD [address] [place], [place] [address] Consulting Physician Cardiology 02/22/24 Jay Marc MD [address] [place] [address] Surgeon Orthopedic Surgery 04/21/24 Bonita Cotto NP [address] [place] [address] Nurse Practitioner Family Medicine 09/04/24 documented as of this encounter
--- OUTSIDE RECORDS SUMMARY | 2024-10-14 10:33 | XMS_ITS | Referral Summary ---
Author Organization [facility] Address [address] [place] [address] Care Team Providers [employer] Electrical Helper Name Role Phone Sadie Randolph MD Unavailable Zachary Hurley MD Unavailable Stephanie Cole MD Primary Care Provider [phone] Osvaldo Feldman MD Unavailable [phone] Aminah Cheung OD Unavailable Flori Sotelo Unavailable [phone] Kostas Lr MD Unavailable Jay Marc MD Unavailable Bonita Cotto NP Unavailable Encounters Date Type Department Care Team Description 10/01/2024 Results Follow-Up [facility] [address] [place] [address] Stephanie Cole MD T3, free, T4, free, TSH 10/01/2024 2:15 PM CDT Lab [address] [address] Congenital hypothyroidism 09/01/2024 Results Follow-Up [facility] [address] [place] [address] Stephanie Cole MD T3, free, T4, free, TSH 09/01/2024 1:15 PM CDT Lab [address] [address] Congenital hypothyroidism 08/22/2024 Orders Only [facility] [address] [place] [address] Lopez Fraire, DELONTE Candidal intertrigo (Primary Dx) 08/22/2024 Telephone [facility] [address] [place] [address] Lopez Fraire NP 08/19/2024 12:30 PM CDT [facility] [address] [facility] [address] [place] [phone] Lopez Fraire NP Candidal intertrigo (Primary Dx) 08/19/2024 [facility]phone [facility] [address] [facility] [address] [place] [phone] Stephanie Cole MD 08/06/2024 Results Follow-Up [facility] [address] [facility] [address] [place] [phone] Stephanie Cole MD DIABETES EYE EXAM 08/04/2024 [facility]phone [facility] [address] [facility] [address] [place] [phone] Stephanie Cole MD 07/31/2024 Telephone [facility] [address] [place] [address] Stephanie Cole MD Wegojuan r 07/30/2024 3:30 PM CDT Office Visit [facility] [address] [place] [address] Stephanie Cole MD Type 2 diabetes mellitus [...] sleep apnea; Congenital hypothyroidism 07/23/2024 Results Follow-Up [facility] [address] [facility] [address] [place] [phone] Stephanie Cole MD Urinalysis reflex to microscopic, TSH, T4, free, Additional followed-up results: 4 07/22/2024 10:10 AM CDT Lab [address] [address] Hematuria, unspecified type; Adult hypothyroidism; Type 2 diabetes mellitus with hyperglycemia, without long-term current use of insulin ([facility]) 07/18/2024 Telephone [facility] [address] [facility] [address] [place] [phone] Stephanie Cole MD Food is very salty, pt unsure why 07/18/2024 Results Follow-Up [facility] [address] [address] Stephanie Cole MD Urinalysis reflex to microscopic and culture Urine, clean voided 07/15/2024 Telephone [facility] [address] [address] Stephanie Cole MD 07/15/2024 Telephone [facility] [address] [facility] [address] [place] [address] Stephanie Cole MD 07/15/2024 Results Follow-Up [facility] [address] [place] [address] Stephanie Cole MD SCAN - LABS from Last 3 Months Allergies Active Allergy Reactions Criticality Noted Date Comments [place] Other (See comments) Low severe shakes Other [...] for wheezing or shortness of breath 4 Active budesonide-glycopy r-formoterol (Breztri Aerosphere) 160-9-4.8 mcg/actuation [...] 04/21/2024 Assessment & Plan (04/21/2024 8:29 PM CERTIFIED PEER SPECIALIST): See hospital details above, testing and labs [...] pain. She is in pain management at [facility]. Recommend continuing cyclobenzaprine 10 mg 3 [...] surgery. Assessment & Plan (04/21/2024 8:30 PM CERTIFIED PEER SPECIALIST): Chronic, uncontrolled. See recent hospitalization for thoracic fusion as outlined above. Continue pain medicine and therapy as prescribed by Neurosurgery. Assessment & Plan (03/16/2024 6:36 PM CERTIFIED PEER SPECIALIST): New symptom as of about two months ago, unremitting. She had evaluation in her spine surgeon's office and has either an arachnoid cyst or possibly a herniated disc in the midthoracic spine. Surgery is planned. She has already been cleared by Cardiology. Review of the record indicates recent elevation of WBC when she was at the [facility] ER with a bad headache. She eventually left without being seen due to the long wait. She denies running a fever. Other pertinent recent history includes an episode of pneumonia treated by Pulmonary Medicine at [facility]. Exam today is unremarkable. She [...] 138/82 Assessment & Plan (04/21/2024 8:21 PM CERTIFIED PEER SPECIALIST): Chronic, at goal. BP stable in office today on current therapy. No acute findings on exam. BMP from 2 weeks ago unremarkable except for protein and liver enzymes. We will repeat today. Continue losartan and propranolol as prescribed. low salt diet. Assessment & Plan (03/07/2024 4:13 PM CERTIFIED PEER SPECIALIST): Chronic, present for more than two years, currently controlled on losartan 50 mg twice daily and propranolol 20 mg every 12 hours. She denies chest pain or pressure. She has been cleared by Cardiology to have her thoracic spine surgery. Assessment & Plan (01/25/2024 1:45 PM CERTIFIED PEER SPECIALIST): Chronic, present for more than two years, [...] 10/18/2022 Assessment & Plan (04/26/2022 4:37 PM CERTIFIED PEER SPECIALIST): Blood pressure is in a good range [...] parameters Assessment & Plan (01/21/2019 11:39 AM CERTIFIED PEER SPECIALIST): Clinically improved. Cont current meds. Hyperlipidemia associated [...] 05/19/2024 Assessment & Plan (01/25/2024 1:44 PM CERTIFIED PEER SPECIALIST): Chronic, present for more than two years, status update needed. We ordered labs to be done at her convenience sometime next week. Follow up in six months. Assessment & Plan (07/12/2023 1:25 PM CDT): She is tolerating generic Lipitor. We will monitor with periodic labs. Assessment & Plan (04/12/2023 3:20 PM CERTIFIED PEER SPECIALIST): She takes generic Lipitor, tolerating well. We [...] 10/18/2022 Assessment & Plan (04/26/2022 4:36 PM CERTIFIED PEER SPECIALIST): She is on moderate dose generic Lipitor, [...] continued 7. Avoid alcohol sedatives and other RN CONCURRENT REVIEW depression that may worsen sleep apnea and [...] BiPAP. Assessment & Plan (04/26/2022 4:46 PM CERTIFIED PEER SPECIALIST): She is now on BiPAP. The mask [...] 150 mcg daily. 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 She is taking a medication, Cytomel, which has a common side effect of diaphoresis. Encouraged patient to speak to her pastry decorator about possibly discontinuing this medication. Class 3 [...] effects. Assessment & Plan (04/21/2024 8:22 PM CERTIFIED PEER SPECIALIST): Chronic, uncontrolled. Down 9 lb in the last 6 weeks, BMI at 41.5. Exercise is limited due to chronic pain issues, she does not wish to discuss pharmacological treatment at this time. Encouraged continued heart healthy diet and exercise and portion control. Assessment & Plan (01/25/2024 1:41 PM CERTIFIED PEER SPECIALIST): Chronic, present for many years, uncontrolled although there has been a slight decrease in her weight recently. We encouraged continued attention to her diet, and additional weight loss. Assessment & Plan (04/12/2023 3:21 PM CERTIFIED PEER SPECIALIST): She put on quite a bit of weight due to inactivity. 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 We encouraged her efforts. Assessment & Plan (11/12/2022 3:16 PM CDT): We encouraged attention to her diet and significant weight loss. She is limited in activity level due to chronic pain. Assessment & Plan (05/11/2022 10:13 AM CERTIFIED PEER SPECIALIST): She is on Ozempic for diabetes. This [...] recommended. Assessment & Plan (03/23/2021 2:09 PM CERTIFIED PEER SPECIALIST): Weight reduction, daily exercise and dietary modifications recommended when feeling better. Assessment & Plan (03/17/2021 4:13 PM CERTIFIED PEER SPECIALIST): Healthy, low carbohydrate lifestyle and exercise for 150min/week recommended Assessment & Plan (01/04/2021 6:01 PM CDT): Weight reduction, daily exercise and dietary modifications recommended. Assessment & Plan (08/06/2020 1:14 PM CDT): HPI: Condition is not at/near goal of BMI <25 A&P: Healthy, low carbohydrate lifestyle and exercise for 150min/week recommended Substitutions: Recommend tracking everything you put in your mouth on an sophie like picoChip or [employer]upan[employer] carries a zero net carb bread If [...] in much longer they will become mushy [place] and/or coconut flour instead of regular flour [...] pork rinds For yogurt, try Two Good mosotho yogurt Use Pinterest for recipe ideas. Type in low carb... Assessment & Plan (06/10/2020 3:28 PM CDT): Healthy, low carbohydrate lifestyle and exercise for 150min/week recommended Hyperplastic polyp of sigmoid colon 01/01/2020 Overview (01/01/2020): Colonoscopy 04/23/2017 [facility] everywhere Chronic migraine without aur [...] endocrinology. Assessment & Plan (04/11/2021 2:40 PM CERTIFIED PEER SPECIALIST): Check 25 OH vit D Adjust dose of Ergocalciferol accordingly Assessment & Plan (04/21/2020 4:14 PM CERTIFIED PEER SPECIALIST): Continue Ergocalciferol, 50,000 international units weekly Assessment & Plan (02/05/2019 3:33 PM CERTIFIED PEER SPECIALIST): Check 25 OH vit D Adjust dose [...] requested a referral to diabetes education at [facility] which will be arranged. Assessment & Plan (03/07/2024 4:15 PM CERTIFIED PEER SPECIALIST): Chronic, present for many years, currently controlled with metformin 500 mg twice daily. The criterion for having surgery was a hemoglobin A1c less than 7.5%, and her recent value was 7.3%. She is working hard on her diet. Assessment & Plan (01/26/2024 3:20 PM CERTIFIED PEER SPECIALIST): Chronic, present for about a year (previously [...] PREDIABETES WRITTEN ON 01/04/2021 6:03 PM BY HUERTAS, ALIYA OLEA, DO Low carbs diet recommended. Labs ordered, will follow. Assessment & Plan (07/12/2023 4:27 AM CDT): >>ASSESSMENT AND PLAN FOR PREDIABETES WRITTEN ON 04/11/2021 2:41 PM BY SADIE RANDOLPH MD Diet and exercise Retry Emelikylah Assessment & Plan (07/12/2023 4:27 AM CDT): [...] 08/16/2021 Assessment & Plan (04/24/2023 10:07 AM CERTIFIED PEER SPECIALIST): She progressed from borderline diabetes to paige [...] covered Assessment & Plan (04/26/2022 4:51 PM CERTIFIED PEER SPECIALIST): She does not check blood sugars at home. She is on Ozempic. She sees Dr. Randolph for follow-up of her endocrine conditions. Lab Results Component Value Date HGBA1C 6.7 02/06/2022 Assessment & Plan (02/06/2022 4:44 PM CERTIFIED PEER SPECIALIST): Hba1c was Lab Results Component Value Date [...] mcg rescue inhaler q.4 hours prn and zjqplojeul-fdahkyrrzhzlbk-gxomkqbazn 160-9-4.8 mcg inhaler twice daily. Assessment & Plan (01/25/2024 1:44 PM CERTIFIED PEER SPECIALIST): Chronic, present for about 10 years, currently treated with albuterol metered- dose inhaler and lgvvrofrzf-ltdezurxnpovdv-wgiexelwqy maintenance inhaler. She also has a nebulizer used as needed. She has a pulmonary nurse practitioner at [facility] who sees her periodically. Continue same. Assessment & Plan (07/12/2023 1:24 PM CDT): She uses an inhaler as needed. She denies cough or shortness of breath. Lungs are clear and oxygen saturation is adequate. Continue same. Assessment & Plan (04/12/2023 3:18 PM CERTIFIED PEER SPECIALIST): Symptoms are controlled with an albuterol inhaler and Symbicort. She managed to quit smoking which is great. We will see her back in three months. Assessment & Plan (04/26/2022 4:34 PM CERTIFIED PEER SPECIALIST): She wheezes occasionally and has an albuterol [...] REGION WRITTEN ON 07/12/2023 4:29 AM BY STEHPANIE COLE MD Chronic Assessment & Plan (06/23/2024 3:20 PM CDT): She wants to taper some of her medications starting with gabapentin which she will decrease from 600 mg 3 times a day to 300 mg 3 times a day. Assessment & Plan (01/25/2024 1:40 PM CERTIFIED PEER SPECIALIST): Chronic, present for decades, currently uncontrolled despite taking tramadol as needed. Mostly she relies on acetaminophen or ibuprofen which he gets flij-hmi-segwrrk. She has follow ups with her back [...] excessive pain, but probably overdid it at [place] in the pool the other day and [...] symptoms Assessment & Plan (04/11/2021 2:40 PM CERTIFIED PEER SPECIALIST): Check TFTs Would recommend to increase LT3 to 5 mcg bid Will send rx after today labs Assessment & Plan (01/04/2021 6:01 PM CDT): Asymptomatic. Stable. Continue current prescription medications. Assessment & Plan (04/21/2020 4:16 PM CERTIFIED PEER SPECIALIST): Continue Levothyroxine and Liothyronine, combination Importance of f taking the medication on an empty stomach, was explained again to the patient Assessment & Plan (12/19/2019 11:48 PM CDT): Continue levothyroxine Assessment & Plan (11/20/2019 2:29 AM CDT): Continue levothyroxine and Cytomel Assessment & Plan (02/05/2019 3:32 PM CERTIFIED PEER SPECIALIST): Will check TSH and free T4 and [...] lacking. Assessment & Plan (01/25/2024 1:46 PM CERTIFIED PEER SPECIALIST): Chronic, present for many years, currently reasonably well controlled on medications prescribed by her psychiatrist, Dr. Hurley, including quetiapine 600 mg at bedtime, lorazepam 1 mg 3 times daily as needed which she takes rarely, and desvenlafaxine 100 mg daily. Continue same and keep followups with psychiatry. Assessment & Plan (04/12/2023 3:21 PM CERTIFIED PEER SPECIALIST): Her mood seems to be pretty stable [...] Barton. Assessment & Plan (05/11/2022 10:13 AM CERTIFIED PEER SPECIALIST): She sees Dr. Hurley and is on [...] feasible. Assessment & Plan (04/21/2024 8:30 PM CERTIFIED PEER SPECIALIST): Spent 5 minutes in discussion of tobacco cessation today and advised of health benefits. Assessment & Plan (07/14/2023 12:55 PM CDT): Unstable, worse. She quit smoking for her back surgery but unfortunately has resumed. We encouraged smoking cessation. Assessment & Plan (04/12/2023 3:21 PM CERTIFIED PEER SPECIALIST): She quit smoking one month ago. I congratulated her on the accomplishment. She does have cravings, but is managing to abstain. Assessment & Plan (10/26/2022 1:58 PM CDT): Insurance would not approve recommended back surgery until she quit smoking and lost some weight. She is working on this but it is hard. Assessment & Plan (04/26/2022 4:50 PM CERTIFIED PEER SPECIALIST): She is still smoking cigarettes and has no plans to quit. We nevertheless did encourage cessation. Assessment & Plan (07/07/2021 2:08 PM CDT): Advised patient to quit smoking. Assessment & Plan (01/04/2021 6:01 PM CDT): Advised patient to quit smoking. Pt declined stating that smoking is the only thing keeping her sane. Assessment & Plan (01/26/2020 8:13 PM CERTIFIED PEER SPECIALIST): Advised patient to quit smoking. Assessment & [...] smoking. Assessment & Plan (01/21/2019 11:40 AM CERTIFIED PEER SPECIALIST): Advised patient to quit. She states she's [...] 03/07/2024 Assessment & Plan (01/26/2024 2:52 PM CERTIFIED PEER SPECIALIST): New problem, started about a week ago, slightly improved. She had a low-dose CT scan of her chest at [place] with her pulmonary nurse practitioner. A right [...] dis classd elswhr 05/17/2023 03/07/2024 Overview (03/07/2024): [employer], details lacking. Furuncle of pubic region [...] ordered. Assessment & Plan (05/09/2022 10:46 AM CERTIFIED PEER SPECIALIST): Acute problem, present times about 4 days [...] ear. Assessment & Plan (04/26/2022 4:50 PM CERTIFIED PEER SPECIALIST): For the past year or so, she is noted an itchy feeling at the external auditory meatus bilaterally and in the surrounding external ear. Exam shows a probable seborrheic dermatitis. We will have her start some ketoconazole cream. If not responding, she will let us know. Influenza A 03/23/2021 04/25/2022 Overview (04/25/2022): Saw Aliya Huertas D.O. Assessment & Plan (03/23/2021 2:08 PM CERTIFIED PEER SPECIALIST): Reiterated treatment plan. Encouraged patient to increase [...] Plan (08/17/2020 5:56 PM CDT): Prescriptions sent. Nuwns-qc-wedupz exercises encouraged once pain level decreases. Return [...] in your mouth on an sophie like picoChip or [employer] carries a zero net carb bread [...] in much longer they will become mushy [place] and/or coconut flour instead of regular flour [...] pork rinds For yogurt, try Two Good mosotho yogurt Use Pinterest for recipe ideas. Type in low carb... Assessment & Plan (01/26/2020 8:12 PM CERTIFIED PEER SPECIALIST): Weight reduction, daily exercise and dietary modifications [...] psychiatry Assessment & Plan (01/26/2020 8:10 PM CERTIFIED PEER SPECIALIST): Clinically improved, managed by psychiatrist. Assessment & [...] recommended. Assessment & Plan (01/21/2019 11:41 AM CERTIFIED PEER SPECIALIST): Worsening. Encouraged patient to decrease weight, increase [...] list. Assessment & Plan (01/26/2020 8:11 PM CERTIFIED PEER SPECIALIST): Stable. Cont. Current meds. Managed by psychiatry. Assessment & Plan (12/19/2019 11:51 PM CDT): Continue home medications. Patient is on Xanax 2 mg t.i.d. p.r.n. which is not a new medication or dose for her. Assessment & Plan (11/20/2019 2:28 AM CDT): Continue p.r.nKenia Mccartynax Hypoxia 01/21/2019 Pneumonia due to infectious organism [...] 1 47.6 Started: 03/19/1977 Smokeless Tobacco: Never Tobacco Cessation:Ready [...] file 01/30/2020 How often do you attend faith or mormonism serv ices? Never 01/30/2020 Do you belong to any clubs o r organizations such as faith groups, unions, fraternal or athletic groups, or [...] on file Legal Sex Female 1:21 PM CERTIFIED PEER SPECIALIST Gender Identity Female 05/05/2022 8:09 AM CERTIFIED PEER SPECIALIST Sexual Orientation Straight 11/04/2018 1: 20 [...] on file Medical Devices Implanted Type Area Key Punch Operator Device Identifier Shelf Expiration Date Model / Serial / Lot Appirio Angio-Seal Vip 6fr Closere Device [id number] - [id number] Implanted:Qty: 1 on 06/27/2024 by Ran García MD at [facility] Appirio 11/11/2024 [id number] / / [id number] Procedures Procedure Name Priority Date/Time Associated Diagnosis [...] 07/22/2024 10:15 AM CDT Hematuria, unspecified type LIPID PANEL Routine 06/24/2024 10:04 AM CDT Type 2 diabetes mellitus with hyperglycemia, without long-term current use of insulin (HCC) ALBUMIN CREATININE RATIO, URINE Routine 06/24/2024 10:04 AM CDT Type 2 diabetes mellitus with hyperglycemia, without long-term current use of insulin (HCC) LUNG CANCER SCREENING Routine 01/19/2024 MAMMOGRAPHY Routine 11/28/2022 HEPATITIS C ANTIBODY Routine 01/21/2019 11:48 AM CERTIFIED PEER SPECIALIST Encounter for hepatitis C screening test for low risk patient COLONOSCOPY Routine 04/23/2017 from Last 3 Months or Most Recently Relevant to Health Maintenance Results * T3, free (10/01/2024 2:21 PM CDT) Free T3 2.0 2.0 - 4.4 pg/mL Comment:Testing performed by : [facility], [address] [place] [address], [place]., [address] Blood 10/01/2024 2:21 PM CDT 10/01/2024 7:26 PM CDT us Stephanie Cole MD LAB BLOOD ORDERABLES Final Re sult JAMAR SINGH ([place]) 1 [facility] [place] [address] * TSH (10/01/2024 2:21 PM CDT) Thyroid Stimulating Hormone 0.87 0.30 - 4.20 mcIUnit/mL JAMAR SINGH ([place]) Blood 10/01/2024 2:21 PM CDT 10/01/2024 3:10 PM CDT Stephanie Cole MD LAB BLOOD ORDERABLES Final Re sult Performing Organization Address [facility]/State/ZIP Co de Phone Number JAMAR SINGH ([place]) 1 [facility] [place] [address] * T4, free (10/01/2024 2:21 PM CDT) Free T4 1.23 0.90 - 1.70 ng/dL JAMAR SINGH ([place]) Blood 10/01/2024 2:21 PM CDT 10/01/2024 3:10 PM CDT Stephanie Cole MD LAB BLOOD ORDERABLES Final Re sult Performing Organization Address [facility] Co de Phone Number JAMAR SINGH ([place]) 1 [facility] [place] [address] * (ABNORMAL) T3, free (09/01/2024 1:19 PM CDT) Free T3 1.7(L) 2.0 - 4.4 pg/mL Comment:Testing performed by : [facility], [address] [place] [address], [address] Blood 09/01/2024 1:19 PM CDT 09/01/2024 5:15 PM CDT Stephanie Cole MD LAB BLOOD ORDERABLES Final Re sult Performing Organization Address City/[facility]/ZIP Co de Phone Number JAMAR SINGH ([place]) 1 [facility] [place] [address] * (ABNORMAL) TSH (09/01/2024 1:19 PM CDT) Thyroid Stimulating Hormone 4.36(H) 0.30 - 4.20 mcIUnit/mL Blood 09/01/2024 1:19 PM CDT 09/01/2024 1:36 PM CDT us Stephanie Cole MD LAB BLOOD ORDERABLES Final Re sult JAMAR SINGH [place]) 1 [facility] [place] [address] * T4, free (09/01/2024 1:19 PM CDT) Free T4 1.25 0.90 - 1.70 ng/dL Blood 09/01/2024 1:19 PM CDT 09/01/2024 1:36 PM CDT Stephanie Cole MD LAB BLOOD ORDERABLES Final Re sult Performing Organization Address City/[facility]/ZIP Co de Phone Number JAMAR SINGH [place]) 1 [facility] [place] [place] [address] * HM DIABETES EYE EXAM (07/31/2024 4:13 PM CDT) SCRIBED DIABETIC DILATED EYE EXAM Normal Howard Ferguson MD HEALTH MAINTENANCE Final Result [...] Re sult J[facility]AR [facility] ([place]) 1 [facility] [place] [address] * Urinalysis reflex to microscopic (07/22/2024 10:15 [...] tendency for uric acid stone formation. Source: [facility] [employer] Current Interpretive Data was last revised on [...] Re sult Performing Organization Address [facility]/ZIP Co de Phone Number JAMAR SINGH ([place]) 1 [facility] [place] [place] [address] * (ABNORMAL) T3, free (07/22/2024 10:15 AM CDT) Free T3 1.3(L) 2.0 - 4.4 pg/mL Comment:Testing performed by : [facility], [address] [place] [address], [id number] Blood 07/22/2024 10:1 5 AM CDT 07/22/2024 2:22 PM CDT us Stephanie Cole MD LAB BLOOD ORDERABLES Final Re sult Performing Organization Address [facility] Co de Phone Number JAMAR SINGH ([place]) 1 [facility] [place] [place] [address] * (ABNORMAL) TSH (07/22/2024 10:15 AM CDT) Thyroid Stimulating Hormone 7.55(H) 0.30 - 4.20 mcIUnit/mL Blood 07/22/2024 10:1 5 AM CDT 07/22/2024 10:29 AM CDT us Stephanie Cole MD LAB BLOOD ORDERABLES Final Re sult Performing Organization Address City/[facility]/ZIP Co de Phone Number JAMAR SINGH ([place]) 1 [facility] [place] [place] [address] * T4, free (07/22/2024 10:15 AM CDT) Free T4 1.14 0.90 - 1.70 ng/dL Blood 07/22/2024 10:1 5 AM CDT 07/22/2024 10:29 AM CDT us Stephanie Cole MD LAB BLOOD ORDERABLES Final Re sult Performing Organization Address [facility] Co de Phone Number JAMAR SINGH ([place]IR[place]) 1 [facility] [place] [address] * (ABNORMAL) Hemoglobin A1c (07/22/2024 10:15 AM CDT) Hgb A1C 7.9(H) 4.0 - 5.6 % Estimated Average Glucose 180 mg/dL [facility] (HIRAM) Comment: The ADA recommends reporting an estimated Average Glucose (eAG) with all Hemoglobin A1c results using the equation derived from a study of 507 normal and diabetic adults. Minority populations were underrepresented and children were not included. (Diabetes Care 31:4402-8185, 2008). The eAG is not equivalent to a fasting glucose. Blood 07/22/2024 10:1 5 AM CDT 07/22/2024 10:29 AM CDT Stephanie Cole MD LAB BLOOD ORDERABLES Final Re sult Performing Organization Address [facility] Co de Phone Number JAMAR SINGH (HIR[place]) 1 [facility] [place] [employer] [place] [address] * (ABNORMAL) Comprehensive metabolic panel (07/22/2024 10:15 AM CDT) Pathologist [facility] Sodium 137 135 - 145 mmol/L Potassium, pl 4.4 3.3 - 4.9 mmol/L [facility] ([place]IRAM) Chloride 99 97 - 110 mmol/L [facility] ([place]) CO2 26 22 - 32 mmol/L [facility] ([place]) Anion gap 12 2 - 15 mmol/L [facility] ([place]) BUN 12 6 - 25 mg/dL [facility] ([place]) Creatinine 0.79 0.60 - 1.10 mg/dL [facility] ([place]IR[place]) Glucose 147 70 - 199 mg/dL [facility] (HIRAM) Comment: Interpretive Data Fasting [...] Re sult [facility] ([place]) 1 [facility] [place] [address] * Albumin Creatinine Ratio, Urine (06/24/2024 10:04 AM CDT) Albumin Ur <12.0 mg/L Comment: Interpretive Data No reference range established. Current interpretive data was last revised 2018. Testing performed by: [facility], [address] [place] [address]., [id number] Creatinine Ur 61.5 mg/dL [facility] ([place]) Comment: Interpretive Data No reference range established. Current interpretive data was last revised 2018. Testing performed by: [address] [address] Albumin Creatinine Ratio, Ur <20 1 - 29 mg/g [facility] ([place]IRAM) Comment:Testing performed by : [address] [address] Urine 06/24/2024 10:0 4 AM CDT 06/24/2024 2:22 PM CDT us Stephanie Cole MD LAB URINE ORDERABLES Final Re sult JAMAR SINGH ([place]) 1 [facility] [place] [address] * (ABNORMAL) Lipid panel (06/24/2024 10:04 AM [...] BLOOD ORDERABLES Final Re sult JAMAR SINGH ([place]) 1 [facility] [employer] [place] [employer] [place] [address] * LUNG CANCER SCREENING (01/19/2024) Scribed Lung Cancer Screening Normal Impressions Stephanie Cole MD - 01/19/2024 Low-dose CT chest 01/19/2024 at [facility] negative for suspicious nodules. Narrative Stephanie Cole MD - 01/19/2024 See scanned report. us Flori [facility] Fin al Result * MAMMOGRAPHY (11/28/2022) Mammography Normal Impressions Stephanie Cole MD - 11/28/2022 [facility] Narrative Stephanie Cole MD - 11/28/2022 See scanned report. us Betzaida Subramanian NP HEALTH MAINTENANCE Final Result * Hepatitis C antibody (01/21/2019 11:48 AM CERTIFIED PEER SPECIALIST) Pathologist [facility] Hep C Ab Negative Negative JAMAR SINGH ([place]IRAM) Comment:Testing performed by : [facility], [address] [place] [address], [place]., [address] Blood specimen (specimen) 01/21/2019 11:48 AM CERTIFIED PEER SPECIALIST 01/21/2019 7:22 PM CERTIFIED PEER SPECIALIST us Aliya Huertas DO LAB MICROBIOLOGY - GENERAL ORDERABLES Final Result JAMAR SINGH ([place]) 1 [facility] Department [employer] [place], [place] [id number] * COLONOSCOPY (04/23/2017) Colonoscopy Abnormal us Howard Ferguson MD HEALTH MAINTENANCE Final Result from Last 3 Months or Most Recently Relevant to Health Maintenance Insurance [employer] SENIOR SUPPLEMENT MEDICARE MEDICARE [facility] MEDICARE [facility] MEDICARE SUPPLEMENT Advance Directives For more information, please contact: [phone] * Full Code (Latest Code Status on File) Date Activated Date Inactivated Comments 06/27/2024 1:07 PM 06/27/2024 7:17 PM * Full Code Date Activated Date Inactivated Comments 12/19/2019 5:44 PM 12/21/2019 2:39 PM * Full Code Date Activated Date Inactivated Comments 11/19/2019 8:23 PM 11/21/2019 2:56 PM * Full Code Date Activated Date Inactivated Comments 11/21/2018 5:09 PM 11/24/2018 6:00 PM Care Teams Automotive Electrical Helper Relationship Specialty Start Date End Date Stephanie Cole MD [address] [place] [address] PCP - General Internal Medicine 10/14/21 [place] [address] [place] [address] Consulting Physician Endocrinology Diabetes & Metabolism 01/21/19 [place] [address] [place] [address] Referring Physician Psychiatry 01/21/19 [place] [address] [facility] [address] [place] [address] Consulting Physician Pain Management 09/25/22 Aminah Cheung OD [address] [place] [address] Consulting Physician Optometry 01/18/23 Flori Sotelo PA [address] [place] [id number] Physician Naphthalene Operator Pulmonary Disease 01/26/24 Kostas Lr MD [address] [place] [address] Consulting Physician Cardiology 02/22/24 Jay Marc MD [address] [place] [id number] Surgeon Orthopedic Surgery 04/21/24 Bonita Cotto, [address] [place] [address] Nurse Practitioner Family Medicine 09/04/24
--- OUTSIDE RECORDS SUMMARY | 2024-10-14 10:33 | XMS_ITS | Clinical Summary ---
Author Organization [employer] Address [address] [place] [address] Care Team Providers Care Sales Department Supervisor Name Role Phone Sadie Randolph MD Unavailable Zachary Hurley MD Unavailable Stephanie Cole MD Primary Care Provider Osvaldo Feldman MD Unavailable Aminah Cheung OD Unavailable Flori Sotelo Unavailable Kostas Lr MD Unavailable Jay Marc MD Unavailable Bonita Cotto NP Unavailable [phone] Allergies Active Allergy Reactions Criticality Noted Date Comments [place] Other (See comments) Low severe shakes Other [...] hyperglycemia, without long-term current use of insulin ([facility]) USE 1 TO CHECK GLUCOSE ONCE [...] hyperglycemia, without long-term current use of insulin ([facility]) Use to test blood glucose once [...] 04/21/2024 Assessment & Plan (04/21/2024 8:29 PM HEALTHCARE EDUCATOR): See hospital details above, testing and labs [...] pain. She is in pain management at [facility]. Recommend continuing cyclobenzaprine 10 mg [...] surgery. Assessment & Plan (04/21/2024 8:30 PM HEALTHCARE EDUCATOR): Chronic, uncontrolled. See recent hospitalization for thoracic fusion as outlined above. Continue pain medicine and therapy as prescribed by Neurosurgery. Assessment & Plan (03/16/2024 6:36 PM HEALTHCARE EDUCATOR): New symptom as of about two months ago, unremitting. She had evaluation in her spine surgeon's office and has either an arachnoid cyst or possibly a herniated disc in the midthoracic spine. Surgery is planned. She has already been cleared by Cardiology. Review of the record indicates recent elevation of WBC when she was at the [facility] ER with a bad headache. She eventually left without being seen due to the long wait. She denies running a fever. Other pertinent recent history includes an episode of pneumonia treated by Pulmonary Medicine at [facility]. Exam today is unremarkable. She will [...] 138/82 Assessment & Plan (04/21/2024 8:21 PM HEALTHCARE EDUCATOR): Chronic, at goal. BP stable in office today on current therapy. No acute findings on exam. BMP from 2 weeks ago unremarkable except for protein and liver enzymes. We will repeat today. Continue losartan and propranolol as prescribed. low salt diet. Assessment & Plan (03/07/2024 4:13 PM HEALTHCARE EDUCATOR): Chronic, present for more than two years, currently controlled on losartan 50 mg twice daily and propranolol 20 mg every 12 hours. She denies chest pain or pressure. She has been cleared by Cardiology to have her thoracic spine surgery. Assessment & Plan (01/25/2024 1:45 PM HEALTHCARE EDUCATOR): Chronic, present for more than two years, [...] 10/18/2022 Assessment & Plan (04/26/2022 4:37 PM HEALTHCARE EDUCATOR): Blood pressure is in a good range [...] parameters Assessment & Plan (01/21/2019 11:39 AM HEALTHCARE EDUCATOR): Clinically improved. Cont current meds. Hyperlipidemia associated [...] 05/19/2024 Assessment & Plan (01/25/2024 1:44 PM HEALTHCARE EDUCATOR): Chronic, present for more than two years, status update needed. We ordered labs to be done at her convenience sometime next week. Follow up in six months. Assessment & Plan (07/12/2023 1:25 PM CDT): She is tolerating generic Lipitor. We will monitor with periodic labs. Assessment & Plan (04/12/2023 3:20 PM HEALTHCARE EDUCATOR): She takes generic Lipitor, tolerating well. We [...] 10/18/2022 Assessment & Plan (04/26/2022 4:36 PM HEALTHCARE EDUCATOR): She is on moderate dose generic Lipitor, [...] continued 7. Avoid alcohol sedatives and other EXPLOITATION ANALYST depression that may worsen sleep apnea and [...] BiPAP. Assessment & Plan (04/26/2022 4:46 PM HEALTHCARE EDUCATOR): She is now on BiPAP. The mask [...] 150 mcg daily. Patient does have a front office assistant, advised patient to follow-up with front office assistant. She is taking a medication, Cytomel, which has a common side effect of diaphoresis. Encouraged patient to speak to her front office assistant about possibly discontinuing this medication. Class 3 [...] effects. Assessment & Plan (04/21/2024 8:22 PM HEALTHCARE EDUCATOR): Chronic, uncontrolled. Down 9 lb in the last 6 weeks, BMI at 41.5. Exercise is limited due to chronic pain issues, she does not wish to discuss pharmacological treatment at this time. Encouraged continued heart healthy diet and exercise and portion control. Assessment & Plan (01/25/2024 1:41 PM HEALTHCARE EDUCATOR): Chronic, present for many years, uncontrolled although there has been a slight decrease in her weight recently. We encouraged continued attention to her diet, and additional weight loss. Assessment & Plan (04/12/2023 3:21 PM HEALTHCARE EDUCATOR): She put on quite a bit of weight due to inactivity. 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 We encouraged her efforts. Assessment & Plan (11/12/2022 3:16 PM CDT): We encouraged attention to her diet and significant weight loss. She is limited in activity level due to chronic pain. Assessment & Plan (05/11/2022 10:13 AM HEALTHCARE EDUCATOR): She is on Ozempic for diabetes. This [...] recommended. Assessment & Plan (03/23/2021 2:09 PM HEALTHCARE EDUCATOR): Weight reduction, daily exercise and dietary modifications recommended when feeling better. Assessment & Plan (03/17/2021 4:13 PM HEALTHCARE EDUCATOR): Healthy, low carbohydrate lifestyle and exercise for 150min/week recommended Assessment & Plan (01/04/2021 6:01 PM CDT): Weight reduction, daily exercise and dietary modifications recommended. Assessment & Plan (08/06/2020 1:14 PM CDT): HPI: Condition is not at/near goal of BMI <25 A&P: Healthy, low carbohydrate lifestyle and exercise for 150min/week recommended Substitutions: Recommend tracking everything you put in your mouth on an sophie like Dialogic or webme [employer] carries a zero net carb bread [...] in much longer they will become mushy Finley and/or coconut flour instead of regular flour [...] pork rinds For yogurt, try Two Good cuban yogurt Use Pinterest for recipe ideas. Type in low carb... Assessment & Plan (06/10/2020 3:28 PM CDT): Healthy, low carbohydrate lifestyle and exercise for 150min/week recommended Hyperplastic polyp of sigmoid colon 01/01/2020 Overview (01/01/2020): Colonoscopy 04/23/2017 [facility] everywhere Chronic migraine without aur a without [...] endocrinology. Assessment & Plan (04/11/2021 2:40 PM HEALTHCARE EDUCATOR): Check 25 OH vit D Adjust dose of Ergocalciferol accordingly Assessment & Plan (04/21/2020 4:14 PM HEALTHCARE EDUCATOR): Continue Ergocalciferol, 50,000 international units weekly Assessment & Plan (02/05/2019 3:33 PM HEALTHCARE EDUCATOR): Check 25 OH vit D Adjust dose [...] requested a referral to diabetes education at [facility] which will be arranged. Assessment & Plan (03/07/2024 4:15 PM HEALTHCARE EDUCATOR): Chronic, present for many years, currently controlled with metformin 500 mg twice daily. The criterion for having surgery was a hemoglobin A1c less than 7.5%, and her recent value was 7.3%. She is working hard on her diet. Assessment & Plan (01/26/2024 3:20 PM HEALTHCARE EDUCATOR): Chronic, present for about a year (previously [...] 08/16/2021 Assessment & Plan (04/24/2023 10:07 AM HEALTHCARE EDUCATOR): She progressed from borderline diabetes to paige [...] covered Assessment & Plan (04/26/2022 4:51 PM HEALTHCARE EDUCATOR): She does not check blood sugars at home. She is on Ozempic. She sees Dr. Randolph for follow-up of her endocrine conditions. Lab Results Component Value Date HGBA1C 6.7 02/06/2022 Assessment & Plan (02/06/2022 4:44 PM HEALTHCARE EDUCATOR): Hba1c was Lab Results Component Value Date [...] mcg rescue inhaler q.4 hours prn and ipyrxslths-ncvmjlawbslkwu-xcxwpatqir 160-9-4.8 mcg inhaler twice daily. Assessment & Plan (01/25/2024 1:44 PM HEALTHCARE EDUCATOR): Chronic, present for about 10 years, currently treated with albuterol metered- dose inhaler and xnhbemiasj-ucvlmweumtreke-rwinuremei maintenance inhaler. She also has a nebulizer used as needed. She has a pulmonary nurse practitioner at [facility] who sees her periodically. Continue same. Assessment & Plan (07/12/2023 1:24 PM CDT): She uses an inhaler as needed. She denies cough or shortness of breath. Lungs are clear and oxygen saturation is adequate. Continue same. Assessment & Plan (04/12/2023 3:18 PM HEALTHCARE EDUCATOR): Symptoms are controlled with an albuterol inhaler and Symbicort. She managed to quit smoking which is great. We will see her back in three months. Assessment & Plan (04/26/2022 4:34 PM HEALTHCARE EDUCATOR): She wheezes occasionally and has an albuterol [...] day. Assessment & Plan (01/25/2024 1:40 PM HEALTHCARE EDUCATOR): Chronic, present for decades, currently uncontrolled despite taking tramadol as needed. Mostly she relies on acetaminophen or ibuprofen which he gets egzd-snm-ftmyome. She has follow ups with her back [...] excessive pain, but probably overdid it at [place] in the pool the other day and [...] symptoms Assessment & Plan (04/11/2021 2:40 PM HEALTHCARE EDUCATOR): Check TFTs Would recommend to increase LT3 to 5 mcg bid Will send rx after today labs Assessment & Plan (01/04/2021 6:01 PM CDT): Asymptomatic. Stable. Continue current prescription medications. Assessment & Plan (04/21/2020 4:16 PM HEALTHCARE EDUCATOR): Continue Levothyroxine and Liothyronine, combination Importance of f taking the medication on an empty stomach, was explained again to the patient Assessment & Plan (12/19/2019 11:48 PM CDT): Continue levothyroxine Assessment & Plan (11/20/2019 2:29 AM CDT): Continue levothyroxine and Cytomel Assessment & Plan (02/05/2019 3:32 PM HEALTHCARE EDUCATOR): Will check TSH and free T4 and [...] lacking. Assessment & Plan (01/25/2024 1:46 PM HEALTHCARE EDUCATOR): Chronic, present for many years, currently reasonably well controlled on medications prescribed by her psychiatrist, Dr. Hurley, including quetiapine 600 mg at bedtime, lorazepam 1 mg 3 times daily as needed which she takes rarely, and desvenlafaxine 100 mg daily. Continue same and keep followups with psychiatry. Assessment & Plan (04/12/2023 3:21 PM HEALTHCARE EDUCATOR): Her mood seems to be pretty stable [...] Barton. Assessment & Plan (05/11/2022 10:13 AM HEALTHCARE EDUCATOR): She sees Dr. Hurley and is on [...] feasible. Assessment & Plan (04/21/2024 8:30 PM HEALTHCARE EDUCATOR): Spent 5 minutes in discussion of tobacco cessation today and advised of health benefits. Assessment & Plan (07/14/2023 12:55 PM CDT): Unstable, worse. She quit smoking for her back surgery but unfortunately has resumed. We encouraged smoking cessation. Assessment & Plan (04/12/2023 3:21 PM HEALTHCARE EDUCATOR): She quit smoking one month ago. I congratulated her on the accomplishment. She does have cravings, but is managing to abstain. Assessment & Plan (10/26/2022 1:58 PM CDT): Insurance would not approve recommended back surgery until she quit smoking and lost some weight. She is working on this but it is hard. Assessment & Plan (04/26/2022 4:50 PM HEALTHCARE EDUCATOR): She is still smoking cigarettes and has no plans to quit. We nevertheless did encourage cessation. Assessment & Plan (07/07/2021 2:08 PM CDT): Advised patient to quit smoking. Assessment & Plan (01/04/2021 6:01 PM CDT): Advised patient to quit smoking. Pt declined stating that smoking is the only thing keeping her sane. Assessment & Plan (01/26/2020 8:13 PM HEALTHCARE EDUCATOR): Advised patient to quit smoking. Assessment & [...] smoking. Assessment & Plan (01/21/2019 11:40 AM HEALTHCARE EDUCATOR): Advised patient to quit. She states she's [...] 03/07/2024 Assessment & Plan (01/26/2024 2:52 PM HEALTHCARE EDUCATOR): New problem, started about a week ago, slightly improved. She had a low-dose CT scan of her chest at [place] with her pulmonary nurse practitioner. A right [...] dis classd elswhr 05/17/2023 03/07/2024 Overview (03/07/2024): [place], [place], details lacking. Furuncle of pubic region [...] ordered. Assessment & Plan (05/09/2022 10:46 AM HEALTHCARE EDUCATOR): Acute problem, present times about 4 days [...] ear. Assessment & Plan (04/26/2022 4:50 PM HEALTHCARE EDUCATOR): For the past year or so, she is noted an itchy feeling at the external auditory meatus bilaterally and in the surrounding external ear. Exam shows a probable seborrheic dermatitis. We will have her start some ketoconazole cream. If not responding, she will let us know. Influenza A 03/23/2021 04/25/2022 Overview (04/25/2022): Saw Aliya Huertas D.O. Assessment & Plan (03/23/2021 2:08 PM HEALTHCARE EDUCATOR): Reiterated treatment plan. Encouraged patient to increase [...] Plan (08/17/2020 5:56 PM CDT): Prescriptions sent. Kfmud-ro-zhfdvl exercises encouraged once pain level decreases. Return [...] in your mouth on an sophie like Dialogic or webme [employer] carries a zero net carb bread [...] in much longer they will become mushy Finley and/or coconut flour instead of regular flour [...] pork rinds For yogurt, try Two Good cuban yogurt Use Pinterest for recipe ideas. Type in low carb... Assessment & Plan (01/26/2020 8:12 PM HEALTHCARE EDUCATOR): Weight reduction, daily exercise and dietary modifications [...] psychiatry Assessment & Plan (01/26/2020 8:10 PM HEALTHCARE EDUCATOR): Clinically improved, managed by psychiatrist. Assessment & [...] recommended. Assessment & Plan (01/21/2019 11:41 AM HEALTHCARE EDUCATOR): Worsening. Encouraged patient to decrease weight, increase [...] list. Assessment & Plan (01/26/2020 8:11 PM HEALTHCARE EDUCATOR): Stable. Cont. Current meds. Managed by psychiatry. [...] Team Description 10/01/2024 2:15 PM CDT Lab [facility] [address] [place] [address] Congenital hypothyroidism 10/01/2024 Results Follow-Up [facility] [address] [place] [address] Stephanie Cole MD T3, free, T4, free, TSH 09/01/2024 1:15 PM CDT Lab [facility] [address] [place] [address] Congenital hypothyroidism 09/01/2024 Results Follow-Up [facility] [address] [place] [address] Stephanie Cole MD T3, free, T4, free, TSH 08/22/2024 Orders Only [facility] [address] [place] [address] Lopez Fraire NP Candidal intertrigo (Primary Dx) 08/22/2024 Telephone [facility] [address] [place] [address] Lopez Fraire NP 08/19/2024 12:30 PM CDT Office Visit [facility] [address] [place] [address] Lopez Fraire, DELONTE Candidal intertrigo (Primary Dx) 08/19/2024 Telephone [facility] [address] [place] [address] Stephanie Cole MD 08/06/2024 Results Follow-Up [facility] [address] [place] [address] Stephanie Cole MD DIABETES EYE EXAM 08/04/2024 Telephone [facility] [address] [place] [address] Stephanie Cole MD 07/31/2024 Telephone [facility] [address] [place] [address] Stephanie Cole MD [facility] 07/30/2024 3:30 PM CDT Office Visit [facility] [address] [facility] [address] [place] [address] Stephanie Cole MD Type 2 diabetes mellitus [...] Chronic obstructive pulmonary disease, unspecified COPD type ([facility]); Moderate obstructive sleep apnea; Congenital hypothyroidism 07/23/2024 Results Follow-Up [facility] [address] [place] [address] Stephanie Cole MD Urinalysis reflex to microscopic, TSH, T4, free, Additional followed-up results: 4 07/22/2024 10:10 AM CDT Lab [address] [address] Hematuria, unspecified type; Adult hypothyroidism; Type 2 diabetes mellitus with hyperglycemia, without long-term current use of insulin ([facility]) 07/18/2024 Telephone [facility] [address] [facility] [address] [place] [address] Stephanie Cole MD Food is very salty, pt unsure why 07/18/2024 Results Follow-Up [facility] [address] [facility] [address] [place] [phone] Stephanie Cole MD Urinalysis reflex to microscopic and culture Urine, clean voided 07/15/2024 Telephone [facility] [address] [place] [address] Stephanie Cole MD 07/15/2024 Telephone [facility] [address] [facility] [address] [place] [address] Stephanie Cole MD 07/15/2024 Results [facility] [address] [place] [address] Stephanie Cole MD SCAN - LABS from Last 3 Months Immunizations Immunization Administration [...] 03/19/2015 - 03/18/2016 MAMMOGRAPHY 09/07/2021 Bilateral Negative, [facility]. BLADDER SUSPENSION 03/19/2010 - 03/18/2011 Details lacking. DIABETES EYE EXAM 01/18/2023 Bilateral Negative diabetic eye exam, [facility]. MAMMOGRAPHY 11/28/2022 Bilateral Negative, [facility] [place] UPPER GI AIR CONTRAST W KUB 03/17/2015 Left FL UPPER GI AIR CONTRAST W KUB 03/05/2015 Left LUMBAR SPINE SURGERY 04/20/2023 N/A Revision lumbar laminectomy, middle third facetectomy, bilateral foraminotomy. Revision posterior lumbar fusion. Use of autograft bone graft augmented with Infuse/allograft material for purposes of fusion. Dr. Marc [facility]. Post-op wound dehiscence and infection managed with antibiotics and drainage/wound vac. ABDOMINAL SURGERY SKIN LESION EXCISION 09/12/2023 SKIN, LEFT CENTRAL FRONTAL SCALP, SHAVE BIOPSY, seborrheic keratosis, Adelina Hoover, PASTE UP COPY CAMERA OPERATOR- THORACIC SPINE SURGERY 03/26/2024 N/A Thoracic laminectomy and excisional biopsy of T5-T8 intradural mass Posterior thoracic fusion with instrumentation Use of autograft bone graft augmented with Infuse / allograft material for purposes of fusion. Jay Marc MD, [facility]. Pathology report: Arachnoid cyst, consistent with CARDIAC CATHETERIZATION 06/27/2024 N/A Procedure: LEFT HEART CATHETERIZATION WITH CORONARY ANGIOGRAPHY AND WITH OR WITHOUT LEFT VENTRICULOGRAM 24100; Surgeon: Ran García MD; Location: [facility] CARDIAC ESCROW REPRESENTATIVE; Service: Cardiovascular; Laterality: N/A; Medical devices from [...] r ecurrent episode, moderate with anxious distress (HCC) 03/05/2017 Exact dates and details lack ing. Anxiety 08/11/2009 Severe episode of recurrent major depressive disorder, without psychotic features (HCC) 08/30/2017 Managed by psychiatry Mononucleosis 1976 Date [...] 01/21/2019 Chronic Cough 11/02/2021 Saw Samantha Bui HAIR ASSISTANT, symptoms managed. Spinal stenosis in cervical region 11/29/2016 Chronic. History of surgery. Yeast vaginitis 11/29/2022 Post antibiotics . Diabetes mellitus (HCC) 2023 Sleep apnea 2020 Morbid obesity (CMS/HCC) (HCC) 06/10/2020 Proteus (mirabilis) (morgani i) causing dis classd elswhr 05/17/2023 [facility], details lacking. Community acquired pneumonia of [...] Marycruz Heart attack Mother's Brother Ted in [place] human resource ssdal waiting for heart cath Breast cancer Mother's Sister 1 Cancer Mother's Sister 2 [place] Breast cancer Niece Arthritis Other Cancer Other Heart disease Other Hypertension Other Mental illness Other Breast cancer Sister 1 Cecily Mark BRCA positive COPD Sister 1 Cecily Mark Depression Sister 1 Cecily Mark Mental illness Sister 1 Cceily Mark Stroke Sister 1 Cecily Mark Cancer [...] How often do you attend islam or hinduism serv ices? Never 01/30/2020 Do you belong [...] on file Legal Sex Female 1:21 PM HEALTHCARE EDUCATOR Gender Identity Female 05/05/2022 8:09 AM HEALTHCARE EDUCATOR Sexual Orientation Straight 11/04/2018 1: 20 PM [...] Additional history exists Foot Exam 01/24/2025 01/25/2024, 06/18, 04/26/2022 Regular Well Visit/Exam 18-64 01/24/2025, 10/26/2022, 10/14/2021, Additional history exists Albumin Creatinine Ratio, Urine 06/24/2025 06/24/2024, 04/21/2024, 10/18/2022 Lipid Panel 06/24/2025 06/24/2024, 0205/2024, 10/18/2022, Additional history exists eGFR 07/22/2025 07/22/2024, 04/1 , 06/24/2024, Additional history exists Dilated Eye [...] 07/19/2022, 05/07/2022 Medical Devices Implanted Type Area Rug Clipper Device Identifier Shelf Expiration Date Model / Serial / Lot [employer] Angio-Seal Vip 6fr Closere Device [id number] - [id number] Implanted:Qty: 1 on 06/27/2024 by Ran García MD at [facility] [employer] 11/11/2024 [id number] / / [id number] Procedures Procedure Name Priority Date/Time Associated Diagnosis Comments TSH Routine 10/01/2024 2:21 PM CDT Congenital hypothyroidism T4, FREE Routine 10/01/2024 2:21 PM CDT Congenital hypothyroidism T3, FREE Routine 10/01/2024 2:21 PM CDT Congenital hypothyroidism TSH Routine 09/01/2024 1:19 PM CDT Congenital hypothyroidism T4, FREE Routine 09/01/2024 1:19 PM CDT Congenital hypothyroidism T3, FREE Routine 09/01/2024 1:19 PM CDT Congenital hypothyroidism DIABETES EYE EXAM Routine 07/31/2024 4:13 PM [...] HEPATITIS C ANTIBODY Routine 01/21/2019 11:48 AM HEALTHCARE EDUCATOR Encounter for hepatitis C screening test for low risk patient HM COLONOSCOPY Routine 04/23/2017 from Last 3 Months or Most Recently Relevant to Health Maintenance Results * T3, free (10/01/2024 2:21 PM CDT) Free T3 2.0 2.0 - 4.4 pg/mL Comment:Testing performed by : [facility], [address] [place] [address]., [id number] Blood 10/01/2024 2:21 PM CDT 10/01/2024 7:26 PM CDT Stephanie Cole MD LAB BLOOD ORDERABLES Final Re sult Performing Organization Address City/[facility]/ZIP Co de Phone Number GARRYDEL SINGH ([place]) [address] [facility] [email or web address] [place] [address] * TSH (10/01/2024 2:21 PM CDT) Thyroid Stimulating Hormone 0.87 0.30 - 4.20 mcIUnit/mL JAMAR SINGH ([place]) Blood 10/01/2024 2:21 PM CDT 10/01/2024 3:10 PM CDT Stephanie Cole MD LAB BLOOD ORDERABLES Final Re sult JAMAR SINGH ([place]) [address] [facility] [place] [address] * T4, free (10/01/2024 2:21 PM CDT) Free T4 1.23 0.90 - 1.70 ng/dL JAMAR SINGH ([place]) Blood 10/01/2024 2:21 PM CDT 10/01/2024 3:10 PM CDT Stephanie Cole MD LAB BLOOD ORDERABLES Final Re sult JAMAR SINGH ([place]) 1 [facility] [place] [address] * (ABNORMAL) T3, free (09/01/2024 1:19 PM CDT) Free T3 1.7(L) 2.0 - 4.4 pg/mL Comment:Testing performed by : [facility], [address] [place] [address]., [address] Blood 09/01/2024 1:19 PM CDT 09/01/2024 5:15 PM CDT Stephanie Cole MD LAB BLOOD ORDERABLES Final Re sult Performing Organization Address [facility] Co de Phone Number JAMAR SINGH ([place]) [address] [facility] [place] [address] * (ABNORMAL) TSH (09/01/2024 1:19 PM CDT) Thyroid Stimulating Hormone 4.36(H) 0.30 - 4.20 mcIUnit/mL Blood 09/01/2024 1:19 PM CDT 09/01/2024 1:36 PM CDT Stephanie Cole MD LAB BLOOD ORDERABLES Final Re sult JAMAR SINGH ([place]) 1 [facility] [place] [address] * T4, free (09/01/2024 1:19 PM CDT) Free T4 1.25 0.90 - 1.70 ng/dL Blood 09/01/2024 1:19 PM CDT 09/01/2024 1:36 PM CDT Stephanie Cole MD LAB BLOOD ORDERABLES Final Re sult JAMAR SINGH ([place]) 1 [facility] [place] [address] * DIABETES EYE EXAM (07/31/2024 4:13 PM [...] BLOOD ORDERABLES Final Re sult JAMAR SINGH ([place]) 1 [facility] [place] [address] * Urinalysis reflex to microscopic (07/22/2024 10:15 [...] tendency for uric acid stone formation. Source: [facility] Current Interpretive Data was last revised on 2017 Protein, ur ql Negative Negative [facility] ([place]) Glucose, ur ql Negative Negative [facility] ([place]) Ketones, ur Negative Negative [facility] ([place]) Bilirubin, ur Negative Negative [facility] ([place]) Blood, ur Negative Negative [facility] ([place]) Urobilinogen, ur <2.0 <2.0 mg/dL [facility] ([place]) Nitrite, ur Negative Negative [facility] ([place]) Leukocyte esterase, ur Negative Negative [facility] ([place]) UA reflex comment Reflex conditions for microscopic UA not met. [facility] ([place]) Urine 07/22/2024 10:1 5 AM CDT 07/22/2024 10:31 AM CDT Stephanie Cole MD LAB URINE ORDERABLES Final Re sult JAMAR [facility] ([place]) 1 [facility] [place] [address] * (ABNORMAL) T3, free (07/22/2024 10:15 AM CDT) Free T3 1.3(L) 2.0 - 4.4 pg/mL Comment:Testing performed by : [facility], [address] [place] [address], [place]., [address] Blood 07/22/2024 10:1 5 AM CDT 07/22/2024 2:22 PM CDT Stephanie Cole MD LAB BLOOD ORDERABLES Final Re sult Performing Organization Address City/[facility]/ZIP Co de Phone Number JAMAR SINGH ([place]) 1 [place] [address] * (ABNORMAL) TSH (07/22/2024 10:15 AM CDT) Thyroid Stimulating Hormone 7.55(H) 0.30 - 4.20 mcIUnit/mL Blood 07/22/2024 10:1 5 AM CDT 07/22/2024 10:29 AM CDT Stephanie Cole MD LAB BLOOD ORDERABLES Final Re sult Performing Organization Address [facility] Co de Phone Number JAMAR SINGH ([place]) 1 [place] [address] * T4, free (07/22/2024 10:15 AM CDT) Free T4 1.14 0.90 - 1.70 ng/dL Blood 07/22/2024 10:1 5 AM CDT 07/22/2024 10:29 AM CDT Stephanie Cole MD LAB BLOOD ORDERABLES Final Re sult Performing Organization Address [facility] Co de Phone Number JAMAR SINGH ([place]) 1 [facility] [place] [address] * (ABNORMAL) Hemoglobin A1c (07/22/2024 10:15 AM CDT) Hgb A1C 7.9(H) 4.0 - 5.6 % Estimated Average Glucose 180 mg/dL JAMAR SINGH ([place]) Comment: The ADA recommends reporting an estimated Average Glucose (eAG) with all Hemoglobin A1c results using the equation derived from a study of 507 normal and diabetic adults. Minority populations were underrepresented and children were not included. (Diabetes Care 31:8148-1734, 2008). The eAG is not equivalent to a fasting glucose. Blood 07/22/2024 10:1 5 AM CDT 07/22/2024 10:29 AM CDT us Stephanie Cole MD LAB BLOOD ORDERABLES Final Re sult [facility] ([place]) 1 [facility] [place] [address] * (ABNORMAL) Comprehensive metabolic panel (07/22/2024 10:15 [...] ([place]) AST 77(H) 10 - 45 Units/L JAMAR SINGH ([place]) Blood 07/22/2024 10:1 5 AM CDT 07/22/2024 10:29 AM CDT Stephanie Cole MD LAB BLOOD ORDERABLES Final Re sult Performing Organization Address [facility] Co de Phone Number JAMAR SINGH ([place]) 1 [facility] [place] [address] * Albumin Creatinine Ratio, Urine (06/24/2024 10:04 AM CDT) Albumin Ur <12.0 mg/L Comment: Interpretive Data No reference range established. Current interpretive data was last revised 2018. Testing performed by: [address] [address] Creatinine Ur 61.5 mg/dL JAMAR SINGH ([place]) Comment: Interpretive Data No reference range established. Current interpretive data was last revised 2018. Testing performed by: [facility], [address] [place] [address]., [address] Albumin Creatinine Ratio, Ur <20 1 - 29 mg/g JAMAR SINGH ([place]) Comment:Testing performed by : [address] [address] Urine 06/24/2024 10:0 4 AM CDT 06/24/2024 2:22 PM CDT Stephanie Cole MD LAB URINE ORDERABLES Final Re sult Performing Organization Address [facility] Co de Phone Number JAMAR SINGH ([place]) 1 [facility] [place] [address] * (ABNORMAL) Lipid panel (06/24/2024 10:04 AM [...] 2. NCEP Expert Panel. Circulation 2004;110:227 3. Farshda M et al. ISIAH Cardiol. 2019July 17;5(5):540-548. doi: 10.1001/jamacardio.2020.0013 Current Interpretive Data was last revised on 2023. Non-HDL Cholesterol 86 mg/dL JAMAR SINGH ([place]) Comment: Interpretive Data Ages < or = [...] on 2017. Chol/HDL ratio 3 ANDER SINGH ([place]) Blood 06/24/2024 10:0 4 AM CDT 06/24/2024 10:52 AM CDT us Stephanie Cole MD LAB BLOOD ORDERABLES Final Re sult JAMAR FRANCISCO ([place]) 1 [facility] [place] [address] * LUNG CANCER SCREENING (01/19/2024) Scribed Lung Cancer Screening Normal Impressions Stephanie Cole MD - 01/19/2024 Low-dose CT chest 01/19/2024 at [facility] negative for suspicious nodules. Narrative Stephanie Cole MD - 01/19/2024 See scanned report. us Flori [facility] Fin al Result * MAMMOGRAPHY (11/28/2022) Mammography Normal Impressions Stephanie Cole MD - 11/28/2022 [employer] [facility], [facility] Narrative Stephanie Cole MD - 11/28/2022 See scanned report. us Betzaida Subramanian NP HEALTH MAINTENANCE Final Result * Hepatitis C antibody (01/21/2019 11:48 AM HEALTHCARE EDUCATOR) Hep C Ab Negative Negative JAMAR SINGH ([place]) Comment:Testing performed by : [facility], [address] [place] [address], [place]., [address] Blood specimen (specimen) 01/21/2019 11:48 AM HEALTHCARE EDUCATOR 01/21/2019 7:22 PM HEALTHCARE EDUCATOR us Aliya Huertas DO LAB MICROBIOLOGY - GENERAL ORDERABLES Final Result JAMAR SINGH ([place]) 1 [facility] [place] [address] * COLONOSCOPY (04/23/2017) Colonoscopy Abnormal us Historical Provider HEALTH MAINTENANCE Final Result from Last 3 Months or Most Recently Relevant to Health Maintenance Insurance AET SENIOR SUPPLEMENT MEDICARE MEDICARE [facility] MEDICARE [facility] MEDICARE SUPPLEMENT Advance Directives For more information, please contact: [phone] * Full Code (Latest Code Status on File) Date Activated Date Inactivated Comments 06/27/2024 1:07 PM 06/27/2024 7:17 PM * Full Code Date Activated Date Inactivated Comments 12/19/2019 5:44 PM 12/21/2019 2:39 PM * Full Code Date Activated Date Inactivated Comments 11/19/2019 8:23 PM 11/21/2019 2:56 PM * Full Code Date Activated Date Inactivated Comments 11/21/2018 5:09 PM 11/24/2018 6:00 PM Care Teams Sales Department Supervisor Relationship Specialty Start Date End Date Stephanie Cole MD [address] [place] [id number] PCP - General Internal Medicine 10/14/21 [place] [address] [facility] [address] [place] [address] Consulting Physician Endocrinology Diabetes & Metabolism 01/21/19 [place] [address] [address] [facility] [address] [place] [address] Referring Physician Psychiatry 01/21/19 [place] [address] [facility] [address] [place] [address] Consulting Physician Pain Management 09/25/22 Aminah Cheung OD [address] [place] [address] Consulting Physician Optometry 01/18/23 Flori Sotelo PA [address] [place] [address] Physician Jeeper Operator Pulmonary Disease 01/26/24 Kostas Lr MD [address] [place] [address] Consulting Physician Cardiology 02/22/24 Jay Marc MD [address] [place] [id number] Surgeon Orthopedic Surgery 04/21/24 Bonita Cotto NP [address] [place] [address] Nurse Practitioner Family Medicine 09/04/24
== END 2024-10-14 10:16 | disposition home or self-care (01) ==
LOC: CHSIMG 10:17
PROVIDERS: PCP Internal Medicine Infectious Disease; Visit Provider Nurse Practitioner Family
DX: J18.9 Pneumonia, unspecified organism (principal)
CPT/HCPCS: 71250